=== PATIENT | female | born 1930 | race Caucasian/White ===

== ENCOUNTER 2017-01-22 22:06 | Emergency (ER) | payer MEDICARE ==
[~2017-01-22] VITALS: Ht 154.9 cm; Wt 77.1 kg
[~2017-01-22 22:06] MED LIST: ACET500T68 PO; ALPR0.254 PO; ASPI-630 PO; CEPH-264 PO; CHOL200027 PO; HYDR-2762 PO; HYDR-971 PO; LEVO75TA5 PO; LISI2.5T PO; MECL25TA3 PO; MELO7.5T29 PO; MULT-505 PO; NAPR220C4 PO; OXYB5TAB7 PO; POLY17PO29 PO; SIMV20TA3 PO
--- NOTE | 2017-01-22 22:35 | PHYS DOC ---
Past Medical History Past Medical History: Arthritis, GERD, High Cholesterol, Hypertension Additional Past Medical Histor: thyroid disease Past Surgical History: Knee Replacement Additional Past Surgical Histo: parital hysterectomy, RIGHT SHOULDER REPLACEMENT Alcohol Use: None Drug Use: None Adult General Chief Complaint Chief Complaint: LACERATION/AVULSION HPI HPI Patient is a 86 year old female who presents with eyebrow laceration. The patient states just prior to arrival but told her shoe became caught on the linoleum floor and she tripped and fell. She denies any dizziness or lightheadedness contributing to the fall. She did not lose consciousness. She denies any other injuries. She does not take blood thinners. Last tetanus was >5 years ago. She has a cane that she uses at times to assist with ambulation. She lives alone. Her PCP is Dr. Li. Review of Systems Review of Systems Constitutional: Denies fever or chills Eyes: Denies change in visual acuity HENT: Denies nasal congestion or sore throat Respiratory: Denies cough or shortness of breath Cardiovascular: Denies chest pain or edema GI: Denies abdominal pain, nausea, vomiting Musculoskeletal: Denies back pain or joint pain Integument: Reports facial laceration. Neurologic: Denies headache, focal weakness or sensory changes All other systems were reviewed and found to be within normal limits, except as documented in this note. Current Medications Current Medications Current Medications Medications (Trade) Dose Ordered Sig/Candi Start Time Stop Time Status Last Admin Dose Admin Lidocaine/ Epinephrine (Let Topical) 3 ml 1X ONCE 01/22/17 23:00 01/22/17 23:01 DC 01/22/17 22:36 3 ML Allergies Allergies Allergies Coded Allergies Type Severity Reaction Last Updated Verified prednisone Allergy Intermediate "makes me crazy" 01/15/16 Yes Physical Exam Physical Exam Constitutional: obese, no acute distress, non-toxic appearance. HENT: Normocephalic, atraumatic, bilateral external ears normal, oropharynx moist, nose normal. Eyes: PERRLA, EOMI, conjunctiva normal, no discharge. ecchymosis in periorbital region laterally & superior to the left eye. no orbital tenderness. 3 cm linear laceration to left eyebrow. Neck: supple, no stridor. no midline c-spine tenderness. Cardiovascular: RRR, no murmurs, no edema. Lungs & Thorax: LCTAB, no wheezing, no respiratory distress. Abdomen: soft, nontender, nondistended. Skin: Warm, dry, no erythema, no rash. Back: No tenderness. Extremities: No deformity Neurologic: Alert and oriented X 3, cranial nerves 2-12 grossly intact, symmetric strength/sensation to upper & lower extremities, no focal deficits noted. Psychologic: Affect normal, judgement normal, mood normal. Current Patient Data Vital Signs Vital Signs Date Time Temp Pulse Resp B/P (MAP) Pulse Ox O2 Delivery O2 Flow Rate FiO2 01/22/17 22:23 85 20 150/58 (88) 98 Room Air 01/22/17 22:16 98.0 98.0 EKG EKG [] Radiology/Procedures Radiology/Procedures PROCEDURE: CT HEAD AND CERVICAL SPINE [facility] Compliance Statement: One or more of the following individualized dose reduction techniques were utilized for this examination: 1. Automated exposure control 2. Adjustment of the mA and/or kV according to patient size 3. Use of iterative reconstruction technique CT head and cervical spine without contrast 01/22/2017 10:39 PM INDICATION: Fall, head injury COMPARISON: CT head March 28, 2012 TECHNIQUE: Multiple axial CT images of the head were obtained from skull base through the vertex without intravenous contrast. Multiple axial CT images of the cervical spine were obtained without intravenous contrast. Coronal and sagittal reformats are provided. FINDINGS: Head: Ventricles, sulci and basal cisterns are within normal limits. Low-attenuation in the periventricular white matter is compatible with chronic small vessel ischemic changes. There is no hydrocephalus. Lima-white matter differentiation is normal. There is no acute intracranial hemorrhage. There is no mass, mass effect or midline shift. Posterior fossa is normal in appearance. Visualized portions of the orbits are normal with exception of bilateral lens replacement. Paranasal sinuses are well aerated. Mastoid air cells are well aerated. Scalp and calvaria are normal. Cervical spine: There is minimal anterolisthesis of C4 on C5. There is minimal retrolisthesis of C5 on C6 and C6 on C7. There is disc height loss at C5-C6 and C6-C7 with marginal osteophytosis, endplate sclerosis and subcortical cystic changes. Skull base is intact. Craniocervical junction is normal in appearance. Atlantoaxial articulation is normal. Vertebral body heights are maintained without evidence for acute fracture. Moderate to advanced facet arthropathy with fusion of the facet joints on the left at C4-C5. Posterior disc osteophyte complex at C5-6 and C6-C7 result in up to moderate spinal canal stenosis. There is moderate to severe bilateral neuroforaminal stenosis at these levels. There is no prevertebral soft tissue swelling. Thyroid gland is normal in appearance. Visualized portions of the lung apices are normal without evidence for suspicious pulmonary nodule or infiltrate. IMPRESSION: 1. No acute intracranial hemorrhage. Mild chronic small vessel ischemic changes are suspected in the periventricular white matter. 2. No acute fracture of the cervical spine. There is mild degenerative spondylolisthesis, as detailed above. Moderate to advanced cervical spondylosis is noted. Electronically signed by: Brayan Min MD (01/22/2017 11:22 PM) [facility] [place] DICTATED and SIGNED BY: BRAYAN MIN MD DATE: 01/22/17 2316[] Course & Med Decision Making Course & Med Decision Making Pertinent Labs and Imaging studies reviewed. (See chart for details) The patient presents with facial laceration after mechanical fall. Tetanus is up -to-date. Wound irrigated by ED RN, LET applied. Laceration repaired by me using sutures. CT shows no evidence of intracranial or cervical spine injury. Patient with normal neurologic exam. She was comfortable with discharge home. Recommend rest, wound care, follow-up in 7 days for suture removal, come back for signs of wound infection, altered mental status, focal neurologic deficit, any otherwise worsening condition. Discharged home in stable and improved condition. [] Dragon Disclaimer Dragon Disclaimer This electronic medical record was generated, in whole or in part, using a voice recognition dictation system. Laceration Repair Lac Repair Indication: facial laceration Procedure: The patient was placed in the appropriate position and anesthesia around the laceration was achieved by topical application of LET. The area was then irrigated with a copious amount of normal saline. The laceration was repaired using 3 simple interrupted sutures with 5-0 ethilon. Total repaired wound length: 3 cm. The patient tolerated the procedure well. Complications: none. Departure Departure Impression: Primary Impression: Facial laceration Disposition: 01 HOME, SELF-CARE Condition: STABLE Referrals: NITISH LI Jr, MD (PCP) Patient Instructions: Facial Laceration, [id number] Additional Instructions: You were seen in the emergency department today for laceration on your face. It was repaired with sutures. Please keep clean and dry. Come back here in 7 days for suture removal. Come back sooner for fever, hot/red/swollen skin, pus draining from the wound, severe confusion, numbness or weakness in arms or legs , uncontrolled vomiting, any otherwise worsening condition. Problem Qualifiers Primary Impression: Facial laceration Encounter type: initial encounter Qualified Codes: S01.81XA - Laceration without foreign body of other part of head, initial encounter SAE PADILLA MD Jan 22, 2017 22:35
[2017-01-22] MEDS ORDERED: LIDOCAINE/EPI/TETRACAINE TOPICAL GEL 3 ML. TP ONE (23:00)
--- NOTE | 2017-01-22 23:26 | RAD ---
[facility] Compliance Statement: One or more of the following individualized dose reduction techniques were utilized for this examination: 1. Automated exposure control 2. Adjustment of the mA and/or kV according to patient size 3. Use of iterative reconstruction technique CT head and cervical spine without contrast 01/22/2017 10:39 PM INDICATION: Fall, head injury COMPARISON: CT head March 28, 2012 TECHNIQUE: Multiple axial CT images of the head were obtained from skull base through the vertex without intravenous contrast. Multiple axial CT images of the cervical spine were obtained without intravenous contrast. Coronal and sagittal reformats are provided. FINDINGS: Head: Ventricles, sulci and basal cisterns are within normal limits. Low-attenuation in the periventricular white matter is compatible with chronic small vessel ischemic changes. There is no hydrocephalus. Lima-white matter differentiation is normal. There is no acute intracranial hemorrhage. There is no mass, mass effect or midline shift. Posterior fossa is normal in appearance. Visualized portions of the orbits are normal with exception of bilateral lens replacement. Paranasal sinuses are well aerated. Mastoid air cells are well aerated. Scalp and calvaria are normal. Cervical spine: There is minimal anterolisthesis of C4 on C5. There is minimal retrolisthesis of C5 on C6 and C6 on C7. There is disc height loss at C5-C6 and C6-C7 with marginal osteophytosis, endplate sclerosis and subcortical cystic changes. Skull base is intact. Craniocervical junction is normal in appearance. Atlantoaxial articulation is normal. Vertebral body heights are maintained without evidence for acute fracture. Moderate to advanced facet arthropathy with fusion of the facet joints on the left at C4-C5. Posterior disc osteophyte complex at C5-6 and C6-C7 result in up to moderate spinal canal stenosis. There is moderate to severe bilateral neuroforaminal stenosis at these levels. There is no prevertebral soft tissue swelling. Thyroid gland is normal in appearance. Visualized portions of the lung apices are normal without evidence for suspicious pulmonary nodule or infiltrate. IMPRESSION: 1. No acute intracranial hemorrhage. Mild chronic small vessel ischemic changes are suspected in the periventricular white matter. 2. No acute fracture of the cervical spine. There is mild degenerative spondylolisthesis, as detailed above. Moderate to advanced cervical spondylosis is noted. Electronically signed by: Kaylynn Masters MD (01/22/2017 11:22 PM) [place] [id number]
[2017-01-23] VITALS: BP 158/70
== END 2017-01-23 | disposition home or self-care (01) ==
LOC: ER 22:06
DX: S01.112A Laceration without foreign body of left eyelid and periocular area, initial encounter (principal); E78.00 Pure hypercholesterolemia, unspecified; I10 Essential (primary) hypertension; K21.9 Gastro-esophageal reflux disease without esophagitis; Z88.8 Allergy status to other drugs, medicaments and biological substances; W01.0XXA Fall on same level from slipping, tripping and stumbling without subsequent striking against object, initial encounter; Y93.89 Activity, other specified; Y99.8 Other external cause status; Y92.89 Other specified places as the place of occurrence of the external cause
CPT/HCPCS: 12013; 70450; 72125; 99284-25

== ENCOUNTER 2017-06-17 14:57 | Emergency (ER) | payer MEDICARE ==
[2017-06-17 16:13] LABS: ADD MAN DIFF? NO
[2017-06-17 16:15] LABS: BASO % 1 % (0-3); EOS # 0.3 x10^3/uL (0.0-0.7); EOS % 5 % (0-3); HEMATOCRIT 35.7 % (36.0-47.0); LYMPH # 1.7 x10^3/uL (1.0-4.8); LYMPH % 31 % (24-48); MEAN CORPUSCULAR HEMOGLOBIN 32 pg (25-35); MEAN CORPUSCULAR HGB CONC 34 g/dL (31-37); MEAN CORPUSCULAR VOLUME 95 fL (79-100); MONO # 0.6 x10^3/uL (0.0-1.1); MONO % 11 % (0-9); NEUT # 2.8 x10^3uL (1.8-7.7); NEUT % 52 % (31-73); PLATELET COUNT 196 x10^3/uL (140-400); RED BLOOD COUNT 3.75 x10^6/uL (3.50-5.40); RED CELL DISTRIBUTION WIDTH 13.1 % (11.5-14.5); WHITE BLOOD COUNT 5.4 x10^3/uL (4.0-11.0)
[2017-06-17] MEDS: IV NORMAL SALINE 1000ML BAG 1,000 ML IV (16:18)
[2017-06-17 16:27] LABS: ANION GAP 12 (6-14); BLOOD UREA NITROGEN 39 mg/dL (7-20); CALCIUM 9.1 mg/dL (8.5-10.1); CARBON DIOXIDE 25 mmol/L (21-32); CHLORIDE 104 mmol/L (98-107); GFR 52.6; GLUCOSE 97 mg/dL (70-99); POTASSIUM 4.5 mmol/L (3.5-5.1); SODIUM 141 mmol/L (136-145)
[2017-06-17] MEDS: ONDANSETRON PF 4 MG/2 ML VIAL. IV (16:30)
[2017-06-17] MEDS ORDERED: CONTRAST GIVEN MC (16:30)
[2017-06-17 16:33] LABS: ALBUMIN 3.6 g/dL (3.4-5.0); ALK PHOS 74 U/L (46-116); ALT (SGPT) 23 U/L (14-59); AST (SGOT) 20 U/L (15-37); DIRECT BILIRUBIN 0.1 mg/dL (0.0-0.2); LIPASE 69 U/L (73-393); TOTAL BILIRUBIN 0.4 mg/dL (0.2-1.0); TOTAL PROTEIN 6.6 g/dL (6.4-8.2)
[2017-06-17 16:37] LABS: TROPONINI < 0.017 ng/mL (0.000-0.055)
[2017-06-17 16:41] LABS: CKMB MASS 1.5 ng/mL (0.0-3.6); CREATINE KINASE 53 U/L (26-192)
[2017-06-17 16:50] LABS: BILIRUBIN,URINE NEGATIVE (NEG); CLARITY,URINE CLEAR; COLOR,URINE YELLOW; GLUCOSE,URINE NEGATIVE (NEG); NITRITE,URINE NEGATIVE (NEG); PROTEIN,URINE NEGATIVE (NEG-TRACE); UROBILINOGEN,URINE 0.2 mg/dL (0.2 mg/dL)
[2017-06-17] MEDS: IOHEXOL 300 MG/ML 100ML VIAL. IV (16:54)
[2017-06-17 17:06] LABS: BACTERIA,URINE FEW /HPF (0-FEW); HYALINE CASTS, URINE FEW /HPF; RBC,URINE OCC /HPF (0-2); SQUAMOUS EPITHELIAL CELL,UR MOD /LPF
[2017-06-17] MEDS: 0.9 % SODIUM CHLORIDE 10 ML DISP.SYRIN. IV (18:06)
== END 2017-06-17 18:23 | disposition home or self-care (01) ==
LOC: ER 14:57
DX: K40.90 Unilateral inguinal hernia, without obstruction or gangrene, not specified as recurrent (principal); K80.20 Calculus of gallbladder without cholecystitis without obstruction; M19.90 Unspecified osteoarthritis, unspecified site; K21.9 Gastro-esophageal reflux disease without esophagitis; E78.00 Pure hypercholesterolemia, unspecified; I10 Essential (primary) hypertension; Z90.711 Acquired absence of uterus with remaining cervical stump; Z96.611 Presence of right artificial shoulder joint; Z96.659 Presence of unspecified artificial knee joint; Z88.8 Allergy status to other drugs, medicaments and biological substances
CPT/HCPCS: 36415; 74177; 80048; 80076; 81001; 82553; 83690; 84484; 85025; 87086; 93005; 96360; 99285-25; J7030; Q9967

== ENCOUNTER → 2017-08-17 | Outpatient (CLI) | payer MEDICARE | END | disposition home or self-care (01) | LOC: KCIC MRI 14:01 | DX: M48.07 Spinal stenosis, lumbosacral region (principal); M12.88 Other specific arthropathies, not elsewhere classified, other specified site; M51.45 Schmorl's nodes, thoracolumbar region | CPT/HCPCS: 72148 ==

== ENCOUNTER → 2017-09-08 | Outpatient (CLI) | payer MEDICARE ==
[~2017-09-08] MED LIST changes: -ACET500T68 PO; -ALPR0.254 PO; -ASPI-630 PO; +BUPIVACAINE MPF 0.25% 10 ML VIAL.; -CEPH-264 PO; -CHOL200027 PO; -HYDR-2762 PO; -HYDR-971 PO; -LEVO75TA5 PO; -LISI2.5T PO; -MECL25TA3 PO; -MELO7.5T29 PO; -MULT-505 PO; -NAPR220C4 PO; -OXYB5TAB7 PO; -POLY17PO29 PO; -SIMV20TA3 PO; +methylPREDNISolone ACETATE 40 MG/ML VIAL.
== END ==
LOC: PNCL 10:48
DX: M79.1 Myalgia (principal); E03.9 Hypothyroidism, unspecified; K21.9 Gastro-esophageal reflux disease without esophagitis; Z87.39 Personal history of other diseases of the musculoskeletal system and connective tissue; Z96.611 Presence of right artificial shoulder joint; Z96.652 Presence of left artificial knee joint; Z98.42 Cataract extraction status, left eye; Z98.41 Cataract extraction status, right eye; Z90.710 Acquired absence of both cervix and uterus; Z98.890 Other specified postprocedural states; Z88.8 Allergy status to other drugs, medicaments and biological substances
CPT/HCPCS: 20552; J1030; J3490

== ENCOUNTER → 2017-09-19 | Outpatient (CLI) | payer MEDICARE ==
[~2017-09-19] MED LIST changes: -BUPIVACAINE MPF 0.25% 10 ML VIAL.; +IOHEXOL 180 MG/ML 10 ML VIAL.; +LIDOCAINE 1% PF 2 ML VIAL.; +methylPREDNISolone ACETATE 80 MG/ML VIAL.
== END | disposition home or self-care (01) ==
LOC: PNCL 08:51
DX: M51.16 Intervertebral disc disorders with radiculopathy, lumbar region (principal); M48.061 Spinal stenosis, lumbar region without neurogenic claudication; M79.1 Myalgia; Z88.8 Allergy status to other drugs, medicaments and biological substances; Z98.42 Cataract extraction status, left eye; Z98.41 Cataract extraction status, right eye; Z96.1 Presence of intraocular lens; E78.00 Pure hypercholesterolemia, unspecified; I10 Essential (primary) hypertension; K21.9 Gastro-esophageal reflux disease without esophagitis; Z98.890 Other specified postprocedural states; Z90.710 Acquired absence of both cervix and uterus; M19.90 Unspecified osteoarthritis, unspecified site; Z96.652 Presence of left artificial knee joint; Z96.611 Presence of right artificial shoulder joint; E03.9 Hypothyroidism, unspecified; F41.9 Anxiety disorder, unspecified
CPT/HCPCS: 62323; J1030; J1040; Q9965

== ENCOUNTER 2017-10-05 12:17 | Emergency (ER) | payer OTHER, MEDICARE ==
[2017-10-05] MEDS: DIPHTH,PERTUSS(ACELL),TET TOX 0.5 ML DISP.SYRIN. VAX IM (13:31)
== END 2017-10-05 13:55 | disposition home or self-care (01) ==
LOC: ER 12:17
DX: S00.83XA Contusion of other part of head, initial encounter (principal); S00.531A Contusion of lip, initial encounter; S80.02XA Contusion of left knee, initial encounter; S80.01XA Contusion of right knee, initial encounter; E78.00 Pure hypercholesterolemia, unspecified; I10 Essential (primary) hypertension; K21.9 Gastro-esophageal reflux disease without esophagitis; Z88.5 Allergy status to narcotic agent; Z90.711 Acquired absence of uterus with remaining cervical stump; Z96.659 Presence of unspecified artificial knee joint; W01.0XXA Fall on same level from slipping, tripping and stumbling without subsequent striking against object, initial encounter; Y93.89 Activity, other specified; Y99.8 Other external cause status; Y92.89 Other specified places as the place of occurrence of the external cause
CPT/HCPCS: 70450; 70486; 73564; 90471; 90715; 99284-25

== ENCOUNTER → 2017-12-06 | Outpatient (CLI) | payer MEDICARE ==
[2017-10-05 13:47] VITALS: BP 184/82
[~2017-12-06] MED LIST changes: +ACET325T9 PO; +ACET500T68 PO; +ALPR0.254 PO; +ASPI-630 PO; +CEPH-264 PO; +CHOL200027 PO; +HYDR-2762 PO; +HYDR-971 PO; -IOHEXOL 180 MG/ML 10 ML VIAL.; +LEVO75TA5 PO; -LIDOCAINE 1% PF 2 ML VIAL.; +LISI2.5T PO; +MECL25TA3 PO; +MELO7.5T29 PO; +MULT-505 PO; +NAPR220C4 PO; +OMEP20CA9 PO; +OXYB5TAB7 PO; +POLY17PO29 PO; +SIMV20TA3 PO; -methylPREDNISolone ACETATE 40 MG/ML VIAL.; -methylPREDNISolone ACETATE 80 MG/ML VIAL.
--- NOTE | 2017-12-06 23:06 | PAIN ---
DATE OF SERVICE: 12/06/2017 PROGRESS NOTE FOR PAIN CLINIC DIAGNOSES: 1. Lumbar radiculopathy with lumbar degenerative disk disease and lumbar spinal stenosis. 2. Myofascial pain. HISTORY OF PRESENT ILLNESS: The patient is an 87-year-old female who returns for followup status post lumbar epidural steroid injection x 1 and previous trigger point injection in the right gastrocnemius. The patient reports that her low back is doing much better at least 40%-50% overall and was doing much better over the first few days, but the pain is still there in the low back and radiating into left greater than right lower extremity. The patient reports she is still increasing her activity with greater ease and comfort, somewhat better with walking distances, able to do household activities with greater ease. She does not awaken her from sleep at night. She rates the pain at 6 on a scale 10 at its worst, 4 on average and a 4 at its least and is a 4 today. The patient reports it is aching and dull with shooting and sometimes a stabbing pain more in the left leg in a posterolateral aspect of the thigh and anterior medial aspect of the left knee. The patient reports her right calf still has some significant pain in it and after the trigger point, was doing much better about 70% but now is beginning to return. The patient reports no new motor or sensory deficits and no new bowel or bladder incontinence or other complaints. PHYSICAL EXAMINATION: VITAL SIGNS: The patient's blood pressure 154/74, pulse 76, respirations are 18, temperature is 98.0 degrees Fahrenheit, weight is 178 pounds and height is 61 inches. GENERAL: The patient is awake, alert, oriented, appropriate and very pleasant demeanor. HEENT: Head shows normocephalic and atraumatic. Extraocular movements are intact and symmetrical. Oral cavity: Mucous membranes moist and pink. Dentition is intact. NECK: Shows anterior throat supple without palpable lymphadenopathy noted. Swallow reflex symmetrical. CHEST: Shows normal on inspection. Breath sounds clear to auscultation bilaterally. HEART: Shows S1 and S2 clear. No murmurs auscultated. ABDOMEN: Soft, nontender and nondistended. No palpable organomegaly is noted. No rebound or guarding demonstrated. BACK: Shows spine grossly in the midline. Slight exaggeration of the thoracic kyphosis and some mild flattening of lumbar lordotic curvature. Lumbar paraspinous muscle shows symmetrical on inspection, on palpation shows some mild tenderness but only diffusely without radiation. EXTREMITIES: The patient's lower extremities show deep tendon reflexes 2+ in the patellar and 1+ in tendo-calcaneus tendons are equal. Motor exam is strong with 5/5 dorsiflexion, extension, quadriceps and hamstring flexion and symmetrical. The patient's right gastrocnemius does show some significant tenderness in the superior lateral aspect of the gastrocnemius with very firm rope-like musculature in this region, which is very tender with palpation consistent with trigger point areas musculature. The rest of the gastrocnemius is supple with normal musculature without trigger points but is very tender on the right superior lateral aspect of the gastrocnemius without radiation. Peripheral pulses are 1+ posterior tibia. No peripheral edema is noted. Options were discussed with the patient. The patient's old chart was reviewed as well as her current medication regimen updated. Current review of systems updated today as well. We will hold on any further injections at this time as she is doing fairly well with each injection previously and would like to wait on any further injections at this time. We will have her return on as needed basis and the patient is questioning whether she could try some topical lidocaine on her left hip and low back. We will give her a prescription for lidocaine ointment 5% with instructions, side effects to be aware of discussed. She is apparently uses in the past with good results on her knees as well and she would like to try this once again. The patient will follow up in approximately 2 weeks or as necessary. AVELINO MEAD MD DR: BLANCA/ryne JOB#: [id number] / [id number]
== END | disposition home or self-care (01) ==
LOC: PNCL 13:52
PROVIDERS: ATTEND Anesthesiology
DX: M51.16 Intervertebral disc disorders with radiculopathy, lumbar region (principal); M48.061 Spinal stenosis, lumbar region without neurogenic claudication; M79.1 Myalgia; I10 Essential (primary) hypertension; E03.9 Hypothyroidism, unspecified; E78.00 Pure hypercholesterolemia, unspecified; E78.5 Hyperlipidemia, unspecified; Z90.710 Acquired absence of both cervix and uterus; Z96.653 Presence of artificial knee joint, bilateral; Z96.611 Presence of right artificial shoulder joint; Z96.612 Presence of left artificial shoulder joint; Z88.5 Allergy status to narcotic agent; Z88.8 Allergy status to other drugs, medicaments and biological substances
CPT/HCPCS: G0463

== ENCOUNTER → 2017-12-20 | Outpatient (CLI) | payer MEDICARE ==
[2017-10-05 13:47] VITALS: BP 184/82
[~2017-12-20] MED LIST changes: +HYDR-965 PO; +LEVO88TA4 PO
[2017-12-20 14:28] LABS: BASO % 1 % (0-3); EOS # 0.2 x10^3/uL (0.0-0.7); EOS % 4 % (0-3); HEMATOCRIT 33.1 % (36.0-47.0); HEMOGLOBIN 11.5 g/dL (12.0-15.5); LYMPH # 1.8 x10^3/uL (1.0-4.8); LYMPH % 28 % (24-48); MEAN CORPUSCULAR HEMOGLOBIN 34 pg (25-35); MEAN CORPUSCULAR HGB CONC 35 g/dL (31-37); MEAN CORPUSCULAR VOLUME 97 fL (79-100); MONO # 0.8 x10^3/uL (0.0-1.1); MONO % 13 % (0-9); NEUT # 3.5 x10^3uL (1.8-7.7); NEUT % 55 % (31-73); PLATELET COUNT 208 x10^3/uL (140-400); RED BLOOD COUNT 3.42 x10^6/uL (3.50-5.40); RED CELL DISTRIBUTION WIDTH 12.5 % (11.5-14.5); WHITE BLOOD COUNT 6.3 x10^3/uL (4.0-11.0)
[2017-12-20 14:46] LABS: CALCIUM 9.5 mg/dL (8.5-10.1); CREATININE 1.1 mg/dL (0.6-1.0); POTASSIUM 4.1 mmol/L (3.5-5.1)
== END | disposition home or self-care (01) ==
LOC: SURGPAT 13:33
PROVIDERS: ATTEND Surgery
DX: Z01.818 Encounter for other preprocedural examination (principal); K40.90 Unilateral inguinal hernia, without obstruction or gangrene, not specified as recurrent
CPT/HCPCS: 36415; 80048; 85025

== ENCOUNTER 2017-12-25 09:01 | Inpatient (IN) | payer MEDICARE ==
[2017-12-25] VITALS (9 sets, daily range): BP systolic 122–164; BP diastolic 38–77
[~2017-12-25] VITALS: Ht 157.5 cm; Wt 77.1 kg
[~2017-12-25 09:01] MED LIST changes: +BUPIVAC MPF-EPI 0.5%-1:200000 30 ML VIAL. ONE; +HYDROmorphone 2 MG/ML VIAL IV PRN; +IV RINGERS,LACTATED 1000ML 1,000 ML IV SCH; +LIDOCAINE 1% PF 2 ML VIAL. ID PRN; +MORPHINE SULFATE 2 MG/ML VIAL. IV PRN; +ONDANSETRON PF 4 MG/2 ML VIAL. IV PRN; +PROCHLORPERAZINE 10 MG/2 ML VIAL. IV PRN; +fentaNYL PF VIAL 100 MCG/2 ML VIAL IV PRN
[2017-12-25] MEDS ORDERED: PROPOFOL 20 ML IV ONE (09:23)
[2017-12-25] MEDS ORDERED: LIDOCAINE 2% PF Vial for OR 5 ML VIAL. ONE (09:23)
[2017-12-25] MEDS ORDERED: fentaNYL PF VIAL 100 MCG/2 ML VIAL ONE (09:23)
[2017-12-25] MEDS ORDERED: ONDANSETRON PF 4 MG/2 ML VIAL. ONE (09:26)
[2017-12-25] MEDS ORDERED: DEXAMETHASONE SOD PHOS 20 MG/5 ML VIAL. ONE (09:26)
[2017-12-25] MEDS ORDERED: NEOSTIGMINE METHYLSULFATE 5 MG/5 ML SYRINGE. ONE (09:31)
[2017-12-25] MEDS ORDERED: ePHEDrine PF IN SALINE 50 MG/5 ML DISP.SYRIN IV ONE (10:23)
[2017-12-25] MEDS ORDERED: SEVOFLURANE 61 TO 120 MINUTES. IH ONE (10:47)
[2017-12-25] MEDS ORDERED: PHENYLEPHRINE in 0.9% NACL PF 1 MG/10 ML SYRINGE. IV ONE (10:53)
[2017-12-25] MEDS ORDERED: MORPHINE SULFATE 2 MG/ML VIAL. IV PRN (11:15)
[2017-12-25] MEDS ORDERED: diphenhydrAMINE HCL 25 MG CAPSULE PO PRN (11:15)
[2017-12-25] MEDS ORDERED: 0.9 % SODIUM CHLORIDE 10 ML DISP.SYRIN. IV PRN (11:15)
[2017-12-25] MEDS ORDERED: oxyCODONE IR 5 MG TABLET PO PRN (11:15)
[2017-12-25] MEDS ORDERED: ONDANSETRON PF 4 MG/2 ML VIAL. IV PRN (11:15)
--- NOTE | 2017-12-25 11:18 | PDOC ---
BRIEF OPERATIVE NOTE Date: Dec 25, 2017 Pre-Op Diagnosis incarcerated left inguinal hernia Post-Op Diagnosis incarcerated left femoral hernia left inguinal lymphadenopathy Procedure Performed repair with mesh biopsy left inguinal lymph nodes Surgeon Olvin Anesthesia Type: General Blood Loss 10cc IV Fluid 500cc Urine Output 175cc Specimens Obtained left inguinal LNs Findings incarcerated femoral hernia, reduced spontaneously during dissection. some mildly prominent inguinal LNs Complications none DEONTE MATA MD Dec 25, 2017 11:18
[2017-12-25] MEDS ORDERED: ALPRAZolam 0.25 MG TABLET PO PRN (11:30)
[2017-12-25] MEDS ORDERED: INFLUENZA VAX SCREEN BY RX. MC PRN (14:00)
--- NOTE | 2017-12-25 14:25 | OP ---
DATE OF SURGERY: 12/25/2017 PREOPERATIVE DIAGNOSIS: Incarcerated left inguinal hernia. POSTOPERATIVE DIAGNOSES: Incarcerated left femoral hernia and left inguinal lymphadenopathy. PROCEDURE: 1. Repair of femoral hernia with mesh. 2. Biopsy of left inguinal lymph node. SURGEON: Deonte Mata MD ANESTHESIA: General LMA. ESTIMATED BLOOD LOSS: 10. INTRAVENOUS FLUID: 500. URINE OUTPUT: 175. INDICATIONS: The patient is an 87-year-old lady with left inguinal fullness and pain, brought for repair. OPERATIVE FINDINGS: Incarcerated femoral hernia was present; however, contents reduced during dissection spontaneously. DESCRIPTION OF PROCEDURE: The patient brought to the operating suite, given a general LMA and the left groin prepped and draped in usual sterile fashion. A 0.5% Marcaine with epinephrine was infiltrated along the incision line. Incision made, dissection carried down to the external oblique fascia. The fullness below the inguinal ligament was identified and carefully exposed. During mobilization of the hernia contents, they spontaneously reduced into the abdominal cavity. The hernia sac was then reduced and held in reduction with a small plug of Phasix mesh. This was tacked with 2-0 PDS, taking care to avoid injury to adjacent vessels. Area checked for hemostasis. Some prominent lymph nodes which had been encountered during the dissection were harvested with the LigaSure. Wound was then closed with interrupted inverted 3-0 Vicryl in the subcutaneous tissue, subcuticular 4-0 Monocryl with Steri-Strips for the skin. Sterile dressing applied. The patient awakened from her anesthetic and taken to the recovery room in satisfactory condition. DEONTE MATA MD DR: KENNETH/ryne JOB#: [id number] / [id number]
[2017-12-25] MEDS: POTASSIUM CL 20MEQ-0.45% NACL 1,000 ML IV SCH (14:41)
[2017-12-25] MEDS ORDERED: SIMVASTATIN 20 MG TABLET PO SCH (21:00)
[2017-12-25] MEDS ORDERED: ENOXAPARIN 40 MG/0.4 ML SYRINGE. SQ SCH (21:00)
[2017-12-25] MEDS: DOCUSATE SODIUM 100 MG CAPSULE. PO SCH (21:50)
[2017-12-25] MEDS: OXYBUTYNIN CHLORIDE 5 MG TABLET PO SCH (21:50)
[2017-12-25] MEDS ORDERED: ACETAMINOPHEN 325 MG TABLET. PO PRN (22:15)
[2017-12-26 03:00] VITALS: BP 114/63
[2017-12-26 07:00] VITALS: BP 137/59
[2017-12-26] MEDS ORDERED: LEVOTHYROXINE 88 MCG TABLET PO SCH (07:00)
[2017-12-26] MEDS ORDERED: PANTOPRAZOLE 40 MG TABLET.DR. PO SCH (07:30)
--- NOTE | 2017-12-26 08:18 | PDOC ---
SURGICAL PROGRESS NOTE Subjective tolerating diet pain managed ambulated to br voided Vital Signs Vital Signs Date Time Temp Pulse Resp B/P (MAP) Pulse Ox O2 Delivery O2 Flow Rate FiO2 12/26/17 07:00 98.6 70 18 137/59 (85) 98 Room Air 98.6 12/25/17 11:20 10 I&O Intake and Output 12/26/17 07:00 Intake Total 1110 ml Output Total 2535 ml Balance -1425 ml Intake Oral 60 ml IV Total 1050 ml Output Urine Total 2525 ml Estimated Blood Loss 10 ml # Voids 1 General: Alert, Oriented X3, Cooperative, No acute distress Abdomen: Soft, Other (groin dressing dry) Assessment/Plan s/p left femoral hernia repair, inguinal lymph node bx dc home FU 1 week CATINA GUEVARA WIRE WINDING MACHINE OPERATOR Dec 26, 2017 08:18
--- NOTE | 2017-12-26 08:20 | DISCH ---
DISCHARGE INSTRUCTIONS Condition on Discharge Condition on Discharge: Stable Activity After Discharge Activity Instructions for Disc: Activity as tolerated Other activity instructions: ok to shower, can leave incision uncovered Bathing Instructions: No Tub Bath until see Lifting Instructions after Dis: No heavy lifting, Do not lift >10 pounds Exercise Instruction after Dis: Progress as tolerated Driving Instructions after Dis: Do not drive Diet after Discharge Diet after Discharge: Regular Diet Texture: Regular Liquid Texture: Thin Liquid Swallowing Supervision: None needed Wound Incision Care Wound/Incision Care: Ice to area for comfort, May get incision wet, No wound care needed Contacting the DRHenry after DC Call your doctor for: Concerns you may have Follow-Up Follow up with: Dr Bah 1 week Treatment/Equipment after DC Adaptive Equipment Issued: None CATINA GUEVARA APRN Dec 26, 2017 08:20
[2017-12-26] MEDS ORDERED: HYDR-965 PO (08:22)
--- NOTE | 2017-12-26 08:25 | PDOC3 ---
Discharge Summary Visit Information Date of Admission: Dec 25, 2017 Date of Discharge: Dec 26, 2017 Admitting Diagnosis: left femoral hernia Final Diagnosis Incarcerated left femoral hernia and left inguinal lymphadenopathy. Brief Hospital Course Allergies Allergies Coded Allergies Type Severity Reaction Last Updated Verified prednisone Allergy Intermediate "makes me crazy" 12/25/17 Yes Vital Signs Vital Signs Date Time Temp Pulse Resp B/P (MAP) Pulse Ox O2 Delivery O2 Flow Rate FiO2 12/26/17 07:00 98.6 70 18 137/59 (85) 98 Room Air 98.6 12/25/17 11:20 10 Brief Hospital Course Ms. Mortensen is a 87 old female who presented with left femoral hernia. She underwent a left femoral hernia repair and left inguinal lymph node biopsy. Postoperatively tolerating diet, ambulating, and pain managed. Ready for discharge home Discharge Information Follow Up: Weeks (1) Disposition/Orders: D/C to Home Scheduled Aspirin (Aspirin) 81 Mg Tab.chew, 1 TAB PO DAILY, #90 Ref 3 (Reported) Entered as Reported by: CASANDRA NOBLE on 01/12/161312 Last Taken: Unknown Dose on 12/18/17 Last Action: Continued on 12/25/17 1120 by DEONTE MATA Cholecalciferol (Vitamin D3) (Vitamin D3) 2,000 Unit Tablet, 2,000 UNIT PO DAILY , (Reported) Entered as Reported by: CASANDRA NOBLE on 01/12/16 131 Last Action: Converted on 12/25/17 1120 by DEONTE MATA Levothyroxine Sodium (Levothyroxine Sodium) 88 Mcg Tablet, 1 TAB PO DAILY, #30 Ref 5 (Reported) Entered as Reported by: CHUY KULKARNI on 12/20/17 1359 Last Taken: Unknown Dose on 12/25/17 0730 Last Action: Continued on 12/25 1120 by DEONTE MATA Multivitamin (Once Daily) 1 Each Tablet, 1 EACH PO DAILY, (Reported) Entered as Reported by: CASANDRA NOBLE on 01/12/16 131 Last Action: Converted on 12/25/17 1120 by DEONTE MATA Omeprazole (Omeprazole) 20 Mg Capsule.dr, 1 CAP PO DAILY, #30 Ref 5 (Reported) Entered as Reported by: Madelyn Olivera on 06/29/17 1352 Last Action: Converted on 101119 by DEONTE MATA Oxybutynin Chloride (Oxybutynin Chloride) 5 Mg Tablet, 5 MG PO BID, (Reported) Entered as Reported by: CASANDRA NOBLE on 01/12/161312 Last Taken: Unknown Dose on 12/25/17 0730 Last Action: Continued on 12/25 by DEONTE MATA Simvastatin (Simvastatin) 20 Mg Tablet, 20 MG PO HS, (Reported) Entered as Reported by: MICHELLE HERNANDEZ on 04/02/132035 Last Action: Converted on 12/25/171119 by DEONTE MATA Scheduled PRN Alprazolam (Alprazolam) 0.25 Mg Tablet, 0.25 MG PO PRN Q6HRS PRN for ANXIETY / AGITATION, Ref 0 (Reported) Entered as Reported by: CASANDRA NOBLE on 01/12/161312 Last Action: Continued on 12/25/171119 by DEONTE MATA Hydrocodone/Apap 7.5-325 ([place] 7.5-325 Tablet) 1 Each Tablet, 1 TAB PO PRN Q6HRS PRN for PAIN, #20 Ref 0 Prescribed by: Catina Lynn on 12/26/17821 Naproxen Sodium (Aleve) 220 Mg Capsule, 440 MG PO BID PRN for PAIN, (Reported) Entered as Reported by: CASANDRA NOBLE on 01/12/161312 Last Action: HELD on 12/25/171119 by CATINA ESTRADA APRN Dec 26, 2017 08:25
[2017-12-26] MEDS: POTASSIUM CL 20MEQ-0.45% NACL 1,000 ML IV SCH (08:30)
[2017-12-26] MEDS: OXYBUTYNIN CHLORIDE 5 MG TABLET PO SCH (08:52)
[2017-12-26] MEDS: DOCUSATE SODIUM 100 MG CAPSULE. PO SCH (08:52)
[2017-12-26] MEDS ORDERED: CHOLECALCIFEROL (VITAMIN D3) 1,000 UNIT TABLET PO SCH (09:00)
[2017-12-26] MEDS ORDERED: ASPIRIN CHEWABLE 81 MG TABLET. PO SCH (09:00)
[2017-12-26] MEDS ORDERED: MULTIVITAMIN with MINERAL TABLET. PO SCH (09:00)
--- NOTE | 2017-12-26 18:07 | PATHOLOGY ---
[facility] Accession Number: [id number] . 01 Material submitted: . LEFT INGUINAL LYMPH NODES . 01 Clinician provided ICD-10: K40.30 . 01 Clinical history: . Incarcerated left inguinal hernia . 02 Diagnosis: Fibroadipose tissue and lymph nodes, left femoral hernia repair: - Reactive changes of lymph nodes with partial fatty replacement and myla fibrosis and focal dystrophic calcification. [facility]/12/26/2017 . 02 Comment: There is no evidence of malignancy. ([facility] 12/26/2017) . 02 Electronically signed: . Cj Hall MD, Pathologist NPI- [id number] . 01 Gross description: . The specimen is received in formalin, labeled "Leslie Mortensen, left inguinal lymph node", is a yellow lobulated soft tissue measuring 4.0 x 0 x 2.0 x 1.6 cm. Sectioning reveals three matted lymph nodes ranging from 0.7 cm up to 1.2 cm in greatest dimension. The specimen is entirely submitted in A1-A3. (A1-A2 = matted lymph nodes bisected and A3 = remaining soft tissue) ([facility]; 12/25/2017) [facility] . 02 Pathologist provided ICD-10: R59.0, K40.30 . 02 CPT . 456015 Specimen Comment: A courtesy copy of this report has been sent to Specimen Comment: [phone], . Specimen Comment: Report sent to / DR LI Performed at: 01 [facility] [address], [place], [place] [id number] MD Michael Martínez MD Phone: [phone] Performed at: 02 [facility] [address], [place] [id number] MD Cj Hall MD Phone: [phone]
== END 2017-12-26 10:15 | disposition home or self-care (01) | DRG 351 ==
LOC: SURG 09:01 → 4 NORTH 11:06
PROVIDERS: ADMIT Surgery; ATTEND Surgery
PROC: 07BJ0ZX Excision of Left Inguinal Lymphatic, Open Approach, Diagnostic (ICD-10-PCS; 2017-12-25)
PROC: 0YU Anatomical Regions, Lower Extremities, Supplement (ICD-10-PCS; principal; 2017-12-25 10:15)
DX: K41.30 Unilateral femoral hernia, with obstruction, without gangrene, not specified as recurrent (principal); K40.30 Unilateral inguinal hernia, with obstruction, without gangrene, not specified as recurrent; R59.0 Localized enlarged lymph nodes; E78.00 Pure hypercholesterolemia, unspecified; E03.9 Hypothyroidism, unspecified; M19.90 Unspecified osteoarthritis, unspecified site; Z96.652 Presence of left artificial knee joint; Z90.710 Acquired absence of both cervix and uterus; Z80.1 Family history of malignant neoplasm of trachea, bronchus and lung; Z88.8 Allergy status to other drugs, medicaments and biological substances
CPT/HCPCS: 88307; 90471; 90756; A7015; C1781; J0690; J1100; J2001; J2370; J2405; J2704; J2710; J3010; J3490; Q2035

== ENCOUNTER 2018-01-06 10:01 | Emergency (ER) | payer MEDICARE ==
[~2018-01-06] VITALS: Ht 154.9 cm; Wt 77.1 kg
[~2018-01-06 10:01] MED LIST changes: -BUPIVAC MPF-EPI 0.5%-1:200000 30 ML VIAL. ONE; -HYDROmorphone 2 MG/ML VIAL IV PRN; -IV RINGERS,LACTATED 1000ML 1,000 ML IV SCH; -LIDOCAINE 1% PF 2 ML VIAL. ID PRN; -MORPHINE SULFATE 2 MG/ML VIAL. IV PRN; -ONDANSETRON PF 4 MG/2 ML VIAL. IV PRN; -PROCHLORPERAZINE 10 MG/2 ML VIAL. IV PRN; -fentaNYL PF VIAL 100 MCG/2 ML VIAL IV PRN
--- NOTE | 2018-01-06 10:51 | PHYS DOC ---
Past Medical History Past Medical History: Arthritis, GERD, High Cholesterol, Hypertension, Other Additional Past Medical Histor: thyroid disease Past Surgical History: Knee Replacement, Other Additional Past Surgical Histo: parital hysterectomy,R SHOULDER REPLACEMENT, MULTIPLE HERNIA Alcohol Use: None Drug Use: None Adult General Chief Complaint Chief Complaint: GI PROBLEM HPI HPI Patient is a 87 year old female who presents with hernia. The patient had surgery on the 15 of this month for repair of a incarcerated left femoral hernia. Patient had been doing well postoperatively until today. She was doing some leg exercises for balance and leg strengthening when she felt a pop in the area of the left lower abdomen. She had onset of some burning type pain and bulging at the incision site. Symptoms began this morning. She has had no fever or chills. She denies dehiscence of the wound. No nausea vomiting. She has been having bowel movements. Surgery was performed by Dr. Bah. Review of Systems Review of Systems Constitutional: Denies fever Eyes: Denies change in visual acuity HENT: Denies nasal congestion Respiratory: Denies cough or shortness of breath Cardiovascular: No additional information not addressed in HPI GI: Denies abdominal pain, nausea, vomiting : Denies dysuria or hematuria Integument: Denies rash or skin lesions Neurologic: Denies headache Endocrine: Denies polyuria All other systems were reviewed and found to be within normal limits, except as documented in this note. Current Medications Current Medications Current Medications Medications (Trade) Dose Ordered Sig/Candi Start Time Stop Time Status Last Admin Dose Admin Info (CONTRAST GIVEN -- Rx MONITORING) 1 each PRN DAILY PRN 01/06/18 11:00 01/08/18 10:59 Iohexol (Omnipaque 300 Mg/ml) 60 ml 1X ONCE 01/06/18 11:00 01/06/18 11:01 DC 01/06/18 11:18 60 ML Allergies Allergies Allergies Coded Allergies Type Severity Reaction Last Updated Verified prednisone Allergy Intermediate "makes me crazy" 12/25/17 Yes Physical Exam Physical Exam Constitutional: Well developed, well nourished, no acute distress HENT: Normocephalic, atraumatic, bilateral external ears normal, oropharynx moist Eyes: PERRLA, EOMI, conjunctiva normal Neck: Normal range of motion, no tenderness Cardiovascular:Heart rate regular rhythm, no murmur Lungs & Thorax: Bilateral breath sounds clear to auscultation Abdomen: Bowel sounds normal, soft, no tenderness, well-healing incision over the left lower quadrant with no local erythema, fever, dehiscence, fluctuance. There is, however, swelling at the incision site concerning for herniation. Skin: Warm, dry, no erythema, no rash Extremities: No edema Neurologic: Alert and oriented X 3 Psychologic: Affect normal Current Patient Data Vital Signs Vital Signs Date Time Temp Pulse Resp B/P (MAP) Pulse Ox O2 Delivery O2 Flow Rate FiO2 01/06/18 10:17 98.2 73 20 176/98 (124) 96 Room Air 98.2 Lab Values Laboratory Tests Test 01/06/18 10:35 White Blood Count 4.8 x10^3/uL (4.0-11.0) Red Blood Count 3.57 x10^6/uL (3.50-5.40) Hemoglobin 11.8 g/dL (12.0-15.5) L Hematocrit 34.4 % (36.0-47.0) L Mean Corpuscular Volume 96 fL (79-100) Mean Corpuscular Hemoglobin 33 pg (25-35) Mean Corpuscular Hemoglobin Concent 34 g/dL (31-37) Red Cell Distribution Width 12.3 % (11.5-14.5) Platelet Count 256 x10^3/uL (140-400) Neutrophils (%) (Auto) 71 % (31-73) Lymphocytes (%) (Auto) 18 % (24-48) L Monocytes (%) (Auto) 9 % (0-9) Eosinophils (%) (Auto) 1 % (0-3) Basophils (%) (Auto) 1 % (0-3) Neutrophils # (Auto) 3.4 x10^3uL (1.8-7.7) Lymphocytes # (Auto) 0.9 x10^3/uL (1.0-4.8) L Monocytes # (Auto) 0.4 x10^3/uL (0.0-1.1) Eosinophils # (Auto) 0.0 x10^3/uL (0.0-0.7) Basophils # (Auto) 0.0 x10^3/uL (0.0-0.2) Sodium Level 143 mmol/L (136-145) Potassium Level 4.0 mmol/L (3.5-5.1) Chloride Level 106 mmol/L (98-107) Carbon Dioxide Level 30 mmol/L (21-32) Anion Gap 7 (6-14) Blood Urea Nitrogen 21 mg/dL (7-20) H Creatinine 1.1 mg/dL (0.6-1.0) H Estimated GFR (Cockcroft-Gault) 47.0 Glucose Level 103 mg/dL (70-99) H Lactic Acid Level 0.9 mmol/L (0.4-2.0) Calcium Level 8.9 mg/dL (8.5-10.1) Laboratory Tests 01/06/18 10:35 Laboratory Tests 01/06/18 10:35 EKG EKG [] Radiology/Procedures Radiology/Procedures Findings: Axial images of the abdomen and pelvis were obtained following 60 cc Omnipaque 300 IV. Sagittal and coronal reformatted images were provided. Calcified granulomas involve the right lung base. Calcification about the mitral annulus is noted. Small hiatal hernia is present. Spleen, pancreas, and adrenal glands are normal. Pancreas is normal. Multiple small calculi are present at the dependent aspect of the gallbladder. No biliary dilatation or findings of acute inflammation. Very small umbilical hernia containing omental fat is present. Moderate to large quantity of stool is present in the colon. Mild bilateral renal atrophy is present. Atrophy is greater involving the left kidney compared to the right. Left inguinal region fluid collection is present and bilobed. It measures 8.7 cm transverse by 7.9 cm anteroposterior by 11.1 cm longitudinal. There is no inguinal hernia. There is no bowel obstruction. Appendix is normal. Urinary bladder is unremarkable. Facet joint degenerative changes of the lumbar spine are advanced. Exaggerated lordosis of the lumbar spine is present. Impression: Large postoperative seroma superficially along the anterior abdominal wall at the inguinal level. No inguinal hernia. No incarcerated bowel or bowel obstruction. Cholelithiasis. Course & Med Decision Making Course & Med Decision Making Pertinent Labs and Imaging studies reviewed. (See chart for details) Is evaluated in the emergency department for postoperative complication from hernia surgery. She is found to have a bulging and likely hernia at the incision site although the incision itself is well-appearing. Attempts are made to reduce the hernia. The swelling is soft over the lateral aspect and easily compressible but towards the medial aspect of the incision, the swelling is more firm and tender and cannot be reduced. CT scan is ordered. Labs including lactate. Patient is nontoxic and in no acute distress 12:30: CT scan is returned. Documented above. Patient does not have recurrence of hernia as previously thought. She has a simple seroma formation at the incision site. The incision again is well-appearing and there is no leakage of fluid or blood or purulence present. The patient is nontoxic. Her white count is normal. Her lactate is not elevated. I spoke to the on-call surgeon, Dr. Long about this patient. Plan will be for discharge home. The patient has a follow-up appointment with her primary surgeon 3 days from now. She is advised to come back to the ER for any fever or worsening pain. She is also advised to avoid any strenuous activity. . Dragon Disclaimer Dragon Disclaimer This electronic medical record was generated, in whole or in part, using a voice recognition dictation system. Departure Departure Referrals: NITISH LI Jr, MD (PCP) AVELINO HERNANDEZ DO Jan 06, 2018 10:51
[2018-01-06] MEDS ORDERED: CONTRAST GIVEN. MC PRN (11:00)
[2018-01-06] MEDS ORDERED: IOHEXOL 300 MG/ML 100ML VIAL. IV ONE (11:00)
[2018-01-06 11:06] LABS: BASO % 1 % (0-3); EOS % 1 % (0-3); HEMATOCRIT 34.4 % (36.0-47.0); HEMOGLOBIN 11.8 g/dL (12.0-15.5); LYMPH # 0.9 x10^3/uL (1.0-4.8); LYMPH % 18 % (24-48); MEAN CORPUSCULAR HEMOGLOBIN 33 pg (25-35); MEAN CORPUSCULAR HGB CONC 34 g/dL (31-37); MEAN CORPUSCULAR VOLUME 96 fL (79-100); MONO # 0.4 x10^3/uL (0.0-1.1); MONO % 9 % (0-9); NEUT # 3.4 x10^3uL (1.8-7.7); NEUT % 71 % (31-73); PLATELET COUNT 256 x10^3/uL (140-400); RED BLOOD COUNT 3.57 x10^6/uL (3.50-5.40); RED CELL DISTRIBUTION WIDTH 12.3 % (11.5-14.5); WHITE BLOOD COUNT 4.8 x10^3/uL (4.0-11.0)
[2018-01-06 11:15] LABS: CALCIUM 8.9 mg/dL (8.5-10.1); CREATININE 1.1 mg/dL (0.6-1.0)
--- NOTE | 2018-01-06 11:50 | RAD ---
Examination: CT ABD PELV W/ IV CONTRST ONLY History: LEFT INGUINAL HERNIA PAIN, S/P RECENT LEFT INGUINAL HERNIA REPAIR [id number]
OMNI 300 60ML, REDUCED DOSE
PRIOR SENT Comparison/Correlation: CT abdomen and pelvis with IV contrast 06/17/2017 Findings: Axial images of the abdomen and pelvis were obtained following 60 cc Omnipaque 300 IV. Sagittal and coronal reformatted images were provided. Calcified granulomas involve the right lung base. Calcification about the mitral annulus is noted. Small hiatal hernia is present. Spleen, pancreas, and adrenal glands are normal. Pancreas is normal. Multiple small calculi are present at the dependent aspect of the gallbladder. No biliary dilatation or findings of acute inflammation. Very small umbilical hernia containing omental fat is present. Moderate to large quantity of stool is present in the colon. Mild bilateral renal atrophy is present. Atrophy is greater involving the left kidney compared to the right. Left inguinal region fluid collection is present and bilobed. It measures 8.7 cm transverse by 7.9 cm anteroposterior by 11.1 cm longitudinal. There is no inguinal hernia. There is no bowel obstruction. Appendix is normal. Urinary bladder is unremarkable. Facet joint degenerative changes of the lumbar spine are advanced. Exaggerated lordosis of the lumbar spine is present. Impression: Large postoperative seroma superficially along the anterior abdominal wall at the inguinal level. No inguinal hernia. No incarcerated bowel or bowel obstruction. Cholelithiasis. Electronically signed by: Eliezer Diaz MD (01/06/2018 11:47 AM) [facility]
[2018-01-06 12:43] VITALS: BP 183/77
== END 2018-01-06 13:04 | disposition home or self-care (01) ==
LOC: ER 10:01
DX: K91.872 Postprocedural seroma of a digestive system organ or structure following a digestive system procedure (principal); K80.20 Calculus of gallbladder without cholecystitis without obstruction; E78.00 Pure hypercholesterolemia, unspecified; I10 Essential (primary) hypertension; K21.9 Gastro-esophageal reflux disease without esophagitis; Z90.711 Acquired absence of uterus with remaining cervical stump; Z88.5 Allergy status to narcotic agent; Y83.8 Other surgical procedures as the cause of abnormal reaction of the patient, or of later complication, without mention of misadventure at the time of the procedure; Y92.89 Other specified places as the place of occurrence of the external cause
CPT/HCPCS: 36415; 74177; 80048; 83605; 85025; 99285; Q9967

== ENCOUNTER → 2018-01-12 | Outpatient (CLI) | payer MEDICARE ==
[~2018-01-12] VITALS: Ht 154.9 cm; Wt 77.1 kg
[~2018-01-12] MED LIST changes: +LIDOCAINE WITH 8.4% SOD BICARB 3 ML DISP.SYRIN. INJ ONE; +LIDOCAINE WITH 8.4% SOD BICARB 3 ML DISP.SYRIN. ONE
[2018-01-12 10:34] VITALS: BP 146/66
[2018-01-12 10:38] LABS: BASO % 0 % (0-3); EOS # 0.1 x10^3/uL (0.0-0.7); EOS % 2 % (0-3); HEMOGLOBIN 12.2 g/dL (12.0-15.5); LYMPH # 1.4 x10^3/uL (1.0-4.8); LYMPH % 24 % (24-48); MEAN CORPUSCULAR HEMOGLOBIN 33 pg (25-35); MEAN CORPUSCULAR HGB CONC 34 g/dL (31-37); MEAN CORPUSCULAR VOLUME 96 fL (79-100); MONO # 0.7 x10^3/uL (0.0-1.1); MONO % 11 % (0-9); NEUT # 3.8 x10^3uL (1.8-7.7); NEUT % 63 % (31-73); PLATELET COUNT 232 x10^3/uL (140-400); RED BLOOD COUNT 3.75 x10^6/uL (3.50-5.40); RED CELL DISTRIBUTION WIDTH 12.6 % (11.5-14.5); WHITE BLOOD COUNT 6.1 x10^3/uL (4.0-11.0)
[2018-01-12 10:49] LABS: PROTHROMBIN TIME PATIENT 13.4 SEC (11.7-14.0)
[2018-01-12 11:43] LABS: CALCIUM 9.3 mg/dL (8.5-10.1); CREATININE 1.1 mg/dL (0.6-1.0); POTASSIUM 4.3 mmol/L (3.5-5.1)
[2018-01-12 12:03] VITALS: BP 166/74
--- NOTE | 2018-01-12 12:47 | RAD ---
Ultrasound-guided aspiration, left groin seroma 01/12/2018 Indication: Left groin seroma. Recent inguinal hernia repair Discussion: The risks and benefits of the procedure were discussed the patient. Informed consent was obtained. A timeout procedure was performed. The left groin was prepped and draped using maximum sterile barrier technique. 1% lidocaine was administered for local anesthesia. Ultrasound evaluation demonstrated a relatively simple fluid collection in subcutaneous tissues of the left groin. The collection was accessed with a 5 Guamanian sheath needle. 200 cc of serous fluid was aspirated. Samples were sent for Gram stain and culture. The sheath was removed and manual pressure held. A pressure dressing was applied. No immediate complications were identified. Reference ultrasound images were saved to the medical record. Impression: Ultrasound-guided aspiration, left groin seroma.
== END | disposition home or self-care (01) ==
LOC: INTRAD 10:08
PROVIDERS: ATTEND Surgery
DX: L76.34 Postprocedural seroma of skin and subcutaneous tissue following other procedure (principal); Y83.8 Other surgical procedures as the cause of abnormal reaction of the patient, or of later complication, without mention of misadventure at the time of the procedure; Z79.01 Long term (current) use of anticoagulants; Z88.8 Allergy status to other drugs, medicaments and biological substances; Z98.890 Other specified postprocedural states; Z79.899 Other long term (current) drug therapy; Z79.82 Long term (current) use of aspirin
CPT/HCPCS: 10160; 36415; 76942; 80048; 85025; 85610; 87071; 87075; C1892; 10022

== ENCOUNTER → 2019-09-26 | Outpatient (CLI) | payer MEDICARE ==
[2018-01-12 12:03] VITALS: BP 166/74
[~2019-09-26] MED LIST changes: -HYDR-2762 PO; +HYDR-2765 PO; +HYDR-3164 PO; +HYDR-3165 PO; -HYDR-965 PO; -HYDR-971 PO; -LIDOCAINE WITH 8.4% SOD BICARB 3 ML DISP.SYRIN. INJ ONE; -LIDOCAINE WITH 8.4% SOD BICARB 3 ML DISP.SYRIN. ONE; +MECL-75 PO; -MECL25TA3 PO; +OMEP20CA16 PO; -OMEP20CA9 PO; +OXYB5TAB10 PO; -OXYB5TAB7 PO; +SIMV20TA18 PO; -SIMV20TA3 PO
== END | disposition home or self-care (01) ==
LOC: LAB 14:02
PROVIDERS: ATTEND Internal Medicine Gastroenterology
DX: Z01.818 Encounter for other preprocedural examination (principal); Z11.59 Encounter for screening for other viral diseases; K92.2 Gastrointestinal hemorrhage, unspecified
CPT/HCPCS: U0003-CS

== ENCOUNTER → 2019-10-02 | Day surgery (SDC) | payer MEDICARE ==
[~2019-10-02] MED LIST changes: +GLYCOPYRROLATE 1 MG/5 ML SYRINGE. ONE; +IV RINGERS,LACTATED 1000ML 1,000 ML IV SCH; +LIDOCAINE 2% PF 5 ML VIAL. ONE; +PROPOFOL 10 MG/ML (20ML) VIAL. IV ONE; +SERT25TA PO
[2019-10-02 10:10] VITALS: BP 145/65
--- NOTE | 2019-10-04 15:08 | PATHOLOGY ---
[facility] Accession Number: [id number] . 01 Material submitted: . rectosigmoid junction - RECTAL SIGMOID JUNCTION MASS . 01 Clinical history: . Anemia, GI bleeding . 02 Diagnosis: Colorectal biopsies, rectosigmoid junction mass: - Tubulovillous adenoma. (JPM:olga; 10/03/2019) S 10/03/2019 0912 Local . 02 Comment: Sections of the rectosigmoid junction mass biopsy reveal segments of tubulovillous adenoma. There is no evidence of malignancy within this material. If there is a strong clinical suspicion of malignancy, additional biopsies may be helpful. Correlate clinically. (JPM:olga; 10/03/2019) . 02 Electronically signed: . Cj Hall MD, Pathologist NPI- [id number] . 01 Gross description: . The specimen is received in formalin, labeled "Leslie Mortensen, rectal sigmoid junction mass". Received are six segments of pale fry soft tissue ranging in size from 0.2 to 0.5 cm in maximum dimensions. The specimen is submitted entirely in cassette A1. (CAA; 10/02/2019) QA/QA 10/02/2019 1710 Local . 02 Pathologist provided ICD-10: D12.8 . 02 CPT . 118240 Specimen Comment: A courtesy copy of this report has been sent to [phone] Specimen Comment: [id number] Specimen Comment: Report sent to / DR SPENCER Performed at: 01 [facility] [address], [place], [place] [id number] MD Michael Martínez MD Phone: [phone] Performed at: 02 [facility] [address] [place], [place] [id number] MD Cj Hall MD Phone: [phone]
== END ==
LOC: ENDOS 08:19
PROVIDERS: ATTEND Internal Medicine Gastroenterology
DX: K92.2 Gastrointestinal hemorrhage, unspecified (principal); D12.8 Benign neoplasm of rectum; K64.0 First degree hemorrhoids; Z79.899 Other long term (current) drug therapy; Z98.890 Other specified postprocedural states
CPT/HCPCS: 43235; 45380; 45381; 88305; J2704; J3490

== ENCOUNTER → 2019-10-11 | Outpatient (CLI) | payer MEDICARE ==
[2019-10-02 10:10] VITALS: BP 145/65
[~2019-10-11] MED LIST changes: +CONTRAST GIVEN. MC PRN; -GLYCOPYRROLATE 1 MG/5 ML SYRINGE. ONE; +IOHEXOL 240 MG/ML 50ML VIAL. PO ONE; +IOHEXOL 300 MG/ML 100ML VIAL. IV ONE; -IV RINGERS,LACTATED 1000ML 1,000 ML IV SCH; -LIDOCAINE 2% PF 5 ML VIAL. ONE; -PROPOFOL 10 MG/ML (20ML) VIAL. IV ONE
[2019-10-11 08:59] LABS: CREATININE 1.1 mg/dL (0.6-1.0); GFR 46.9
--- NOTE | 2019-10-11 15:55 | RAD ---
EXAM: CT Abdomen and Pelvis with IV contrast INDICATION: Reason: RECTOSIGMOID MASS/ IRON DEFICIENCY / Spl. Instructions: / History: TECHNIQUE: Multi-detector row CT images were acquired from the lung bases through the abdomen and pelvis with the use of IV contrast. Sagittal and coronal images were acquired from the transaxial data. All CT scans performed at this facility utilize dose optimization techniques as appropriate to the exam, including the following: Automated exposure control and adjustment of the mA and/or KV according to patient size (this includes techniques or standardized protocols for targeted exams where dose is indication/reason for exam). IV CONTRAST: Administered ORAL CONTRAST: Administered COMPARISON: None FINDINGS: LOWER CHEST: Calcified right hilar lymph nodes and calcified granulomas in the right lower lobe. No pleural effusion. LIVER: Unremarkable BILIARY SYSTEM: Gallbladder contains layering dense debris, compatible with stones or sludge.. Bile ducts are not dilated. PANCREAS: Unremarkable SPLEEN: Upper normal at 11 cm length. ADRENALS: Unremarkable KIDNEYS & URETERS: Unremarkable BLADDER: Unremarkable REPRODUCTIVE ORGANS: Hysterectomy. No adnexal mass. GASTROINTESTINAL: Soft tissue fullness in the low rectum is present, correlating with the patient's known rectosigmoid mass. There is no evidence of bowel obstruction. Moderate stool throughout the large bowel is present. The small bowel is unremarkable. The appendix is normal. Stomach also unremarkable. MESENTERY/PERITONEUM/RETROPERITONEUM: Unremarkable VASCULAR: Scattered calcifications in the abdominal aorta and its major branch vessels. LYMPH NODES: No adenopathy OSSEOUS & SOFT TISSUES: The previously evident low density soft tissue mass in the left groin is now absent. Bones show multilevel degenerative spondylosis. No acute fracture or aggressive osseous lesions noted. IMPRESSION: Masslike fullness in the low rectum with no additional CT findings suspicious for advanced local regional or distant metastatic disease. If indicated, MRI could be considered in further evaluation. Electronically signed by: Joyce Stone MD (10/11/2019 3:52 PM) [id number]
== END ==
LOC: CT 13:39
PROVIDERS: ATTEND Internal Medicine Gastroenterology
DX: K80.20 Calculus of gallbladder without cholecystitis without obstruction (principal); R19.09 Other intra-abdominal and pelvic swelling, mass and lump; D50.9 Iron deficiency anemia, unspecified; I70.0 Atherosclerosis of aorta; M47.9 Spondylosis, unspecified; Z90.710 Acquired absence of both cervix and uterus
CPT/HCPCS: 36415; 74177; 82565; 84520; Q9966; Q9967

== ENCOUNTER → 2019-11-05 | Outpatient (CLI) | payer MEDICARE ==
[2019-10-02 10:10] VITALS: BP 145/65
[~2019-11-05] MED LIST changes: -CONTRAST GIVEN. MC PRN; -IOHEXOL 240 MG/ML 50ML VIAL. PO ONE; -IOHEXOL 300 MG/ML 100ML VIAL. IV ONE
--- NOTE | 2019-11-07 08:59 | RAD ---
STUDY: MRI pelvis without contrast INDICATION: Rectal tumor COMPARISON: CT abdomen and pelvis with oral and IV contrast of 10/11/2019 TECHNIQUE: Multiplanar MR imaging of the pelvis performed without the intravenous administration of IV contrast. This was done to help maximize scan time for the most crucial anatomic sequences that due to patient condition may require repeat imaging. FINDING: Some motion artifact degrades detail. Tumor location and morphology: Location from Anal Verge: Mid Inferior border of the tumor measures 6 cm from the anal verge. Distance of inferior border of tumor to anorectal junction: 3 cm Relationship to anterior peritoneal reflection: Straddles Craniocaudal length: 4 cm Morphology: Semi-circumferential Mucinous: Yes T-category: T1-2 Structures with possible invasion (in T4b stage): Genitourinary: No genitourinary Vessels: No major vessel involvement Nerves: No lubrosacral nerve root involvement Pelvic muscles (excluding the floor): None Pelvic floor: No pelvic floor muscle involvement Bones: No bone invovlement For low rectal tumors: Invasion of sphincter complex : Not applicable Extent of sphincteric invasion: Not Applicable Length of anal canal : 3 cm Extramural Vascular Invasion (EMVI) : No Circumferential resection margin (CRM), for T3 lesions only: Tumor involves peritonealized portion of rectum : No Shortest distance of tumor to mesorectal fascia (or anticipated circumerential resection margin): 6 mm Separate tumor deposit, suspicious lymph node, or EMVI threatening (<= 2mm) or invading (<=1mm) the mesorectal fascia None Suspicious mesorectal lymph nodes and/or tumor deposits: No Number of suspicious lymph nodes: 0 Distance from tumor deposit to mesorectal fascia : Not applicable Extramesorectal lymph nodes None Additional comments: There is extensive muscular atrophy including the left iliopsoas muscle and the bilateral gluteus medius and minimus muscles. The uterus is surgically absent and there is irregular T2 hypointense tissue near the anal verge that could reflect postoperative scarring. IMPRESSION: 1. Stage T2 N0 2. CRM : Clear 3. Suspicious node and/or EMVI near CRM: No 4. Sphincter involvement: Absent 5. Suspicious extramesorectal nodesNo 6. There is scar tissue in the perineum that could reflect postoperative changes from previous hysterectomy and/or episiotomy. This probably explains the findings on CT initially reported to be suspicious for tumor but which on MRI more closely resembles scar tissue.. Discussed with Dr. Davis Andrews by telephone at 8:55 AM on November 07, 2019. Electronically signed by: Joyce Stone MD (11/07/2019 8:56 AM) [id number]
== END ==
LOC: MRI 11:49
PROVIDERS: ATTEND Surgery
DX: N90.89 Other specified noninflammatory disorders of vulva and perineum (principal); D49.0 Neoplasm of unspecified behavior of digestive system; M62.58 Muscle wasting and atrophy, not elsewhere classified, other site
CPT/HCPCS: 72195

== ENCOUNTER → 2019-11-22 | Outpatient (CLI) | payer MEDICARE ==
[2019-10-02 10:10] VITALS: BP 145/65
--- NOTE | 2019-11-22 14:00 | NUR ---
ostomy care Pre-op teaching completed. patient given the pre-op education materials. patients daughter present at this time. ostomy care team will see patient after surgery for further teaching.
--- NOTE | 2019-11-22 14:15 | NUR ---
ASHLYN DIAL MARKER NURSE PROVIDED OSTOMY EDUCATION TO PATIENT AND HER DAUGHTER.
[2019-11-22 15:03] LABS: BASO % 1 % (0-3); EOS # 0.2 x10^3/uL (0.0-0.7); EOS % 3 % (0-3); HEMATOCRIT 35.3 % (36.0-47.0); HEMOGLOBIN 11.8 g/dL (12.0-15.5); LYMPH # 1.5 x10^3/uL (1.0-4.8); LYMPH % 28 % (24-48); MEAN CORPUSCULAR HEMOGLOBIN 32 pg (25-35); MEAN CORPUSCULAR HGB CONC 34 g/dL (31-37); MEAN CORPUSCULAR VOLUME 96 fL (79-100); MONO # 0.7 x10^3/uL (0.0-1.1); MONO % 13 % (0-9); NEUT # 3.1 x10^3/uL (1.8-7.7); NEUT % 56 % (31-73); PLATELET COUNT 203 x10^3/uL (140-400); RED BLOOD COUNT 3.69 x10^6/uL (3.50-5.40); WHITE BLOOD COUNT 5.6 x10^3/uL (4.0-11.0)
[2019-11-22 15:14] LABS: ALBUMIN 3.7 g/dL (3.4-5.0); ALBUMIN/GLOBULIN RATIO 1.2 (1.0-1.7); CALCIUM 8.9 mg/dL (8.5-10.1); GFR 52.3; POTASSIUM 3.9 mmol/L (3.5-5.1); TOTAL BILIRUBIN 0.4 mg/dL (0.2-1.0); TOTAL PROTEIN 6.9 g/dL (6.4-8.2)
== END | disposition home or self-care (01) ==
LOC: SURGPAT 12:37
PROVIDERS: ATTEND Surgery
DX: Z01.812 Encounter for preprocedural laboratory examination (principal); Z20.828 Contact with and (suspected) exposure to other viral communicable diseases; D49.0 Neoplasm of unspecified behavior of digestive system
CPT/HCPCS: 36415; 80053; 85025; U0003

== ENCOUNTER → 2020-07-07 | Outpatient (CLI) | payer MEDICARE ==
[2020-01-08 11:00] VITALS: BP 101/63
[~2020-07-07] MED LIST changes: +LACT1CAP6 PO; +SOLI10TA2 PO
[2020-07-07 10:32] LABS: BASO % 0 % (0-3); EOS # 0.1 x10^3/uL (0.0-0.7); EOS % 2 % (0-3); HEMATOCRIT 33.4 % (36.0-47.0); HEMOGLOBIN 11.4 g/dL (12.0-15.5); LYMPH # 1.5 x10^3/uL (1.0-4.8); LYMPH % 23 % (24-48); MEAN CORPUSCULAR HEMOGLOBIN 32 pg (25-35); MEAN CORPUSCULAR HGB CONC 34 g/dL (31-37); MEAN CORPUSCULAR VOLUME 95 fL (79-100); MONO # 0.9 x10^3/uL (0.0-1.1); MONO % 13 % (0-9); NEUT % 61 % (31-73); PLATELET COUNT 199 x10^3/uL (140-400); RED BLOOD COUNT 3.52 x10^6/uL (3.50-5.40); RED CELL DISTRIBUTION WIDTH 12.9 % (11.5-14.5); WHITE BLOOD COUNT 6.6 x10^3/uL (4.0-11.0)
[2020-07-07 10:38] LABS: ALBUMIN 3.4 g/dL (3.4-5.0); CALCIUM 8.7 mg/dL (8.5-10.1); GFR 52.2; POTASSIUM 4.5 mmol/L (3.5-5.1)
--- NOTE | 2020-07-07 10:59 | EKG ---
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
[2020-07-07 23:27] LABS: HEMOGLOBIN A1C 5.8 % (4.8-5.6)
--- NOTE | 2020-07-08 08:27 | RAD ---
Exam Date: 07/07/2020 10:31 AM XR CHEST 2V Indication: Reason: PRE-OP KNEE REPLACEMENT ON 07/21/20 / Spl. Instructions: / History: Comparison: December 25, 2019 FINDINGS/ IMPRESSION: The aorta is calcified. There is persistent elevation of the right hemidiaphragm. The cardiac silhouette and pulmonary vasculature are within normal limits. There is no focal consolidation, pleural effusion or pneumothorax. The visualized osseous structures are intact. Electronically signed by: Roddy Cadena MD (07/08/2020 8:25 AM) [id number]
== END ==
LOC: SURGPAT 09:01
PROVIDERS: ATTEND Orthopaedic Surgery
DX: Z01.818 Encounter for other preprocedural examination (principal); R94.31 Abnormal electrocardiogram [ECG] [EKG]; I70.0 Atherosclerosis of aorta; M17.11 Unilateral primary osteoarthritis, right knee
CPT/HCPCS: 36415; 71046; 80048; 82040; 82306; 83036; 85025; 85610; 85651; 85730; 87641; 93005

== ENCOUNTER → 2020-07-17 | Outpatient (CLI) | payer MEDICARE ==
[2020-01-08 11:00] VITALS: BP 101/63
== END ==
LOC: LAB 13:18
PROVIDERS: ATTEND Orthopaedic Surgery
DX: Z01.812 Encounter for preprocedural laboratory examination (principal); Z20.822 Contact with and (suspected) exposure to COVID-19
CPT/HCPCS: U0003; U0005

== ENCOUNTER 2020-07-21 06:15 | Observation (INO) | payer MEDICARE ==
[~2020-07-21] VITALS: Ht 157.5 cm; Wt 58.5 kg
[2020-07-21] VITALS (9 sets, daily range): BP systolic 119–177; BP diastolic 56–88
[~2020-07-21 06:15] MED LIST changes: +GABAPENTIN 300 MG CAPSULE. PO PRN; +HYDROmorphone 2 MG/ML VIAL IVP PRN; +IV RINGERS,LACTATED 1000ML 1,000 ML IV SCH; +MORPHINE SULFATE 5 MG, KETOROLAC 30MG VIAL 30 MG, ROPIVacaine 0.5% PF 60 ML, EPINEPHrin... INT ART ONE; +TRANEXAMIC ACID in NS IVPB 50 ML INJ ONE; +ceFAZolin SODIUM IV Push 1 GM VIAL. IVP PRN; +fentaNYL PF VIAL 100 MCG/2 ML VIAL IVP PRN
[2020-07-21] MEDS ORDERED: LIDOCAINE 2% PF 5 ML VIAL. ONE (06:22)
[2020-07-21] MEDS ORDERED: DEXAMETHASONE SOD PHOS 4 MG/ML VIAL ONE (06:22)
[2020-07-21] MEDS ORDERED: ONDANSETRON PF 4 MG/2 ML VIAL. ONE (06:22)
[2020-07-21] MEDS ORDERED: PROPOFOL 10 MG/ML (20ML) VIAL. IV ONE (06:22)
[2020-07-21] MEDS: MELOXICAM 7.5 MG TABLET PO PRN ×2 (06:56→11:28)
[2020-07-21] MEDS ORDERED: TRANEXAMIC ACID in NS IVPB 100 ML ONE (07:05)
[2020-07-21] MEDS ORDERED: VANCOMYCIN 1 GM VIAL. ONE (07:08)
[2020-07-21] MEDS ORDERED: GLYCOPYRROLATE 1 MG/5 ML VIAL. ONE (07:30)
[2020-07-21] MEDS ORDERED: ROCURONIUM 50 MG/5 ML VIAL. ONE (07:31)
[2020-07-21 07:33] LABS: PROTHROMBIN TIME PATIENT 14.3 SEC (11.7-14.0)
--- NOTE | 2020-07-21 07:36 | PREOP HP ---
DATE OF SERVICE: 07/21/2020 CHIEF COMPLAINT: Right knee pain. HISTORY OF PRESENT ILLNESS: The patient is followup of a remote left total knee arthroplasty elsewhere that is doing reasonably well, but the right knee is becoming much more severe with a knock knee posture, episodes of giving way and increased pain severely affecting her activities of daily living. She is using a walker for safety. PAST MEDICAL HISTORY: Significant for hypercholesterolemia, hypothyroidism, incontinence, arthritis, hernia. PAST SURGICAL HISTORY: Left knee arthroplasty, hysterectomy, right shoulder replacement, hemorrhoidectomy, inguinal hernia repairs and bowel resection, ileostomy takedown. FAMILY HISTORY: Lung cancer in her brother, rheumatoid arthritis in mother and father. SOCIAL HISTORY: She denies smoking, alcohol or drug use. ALLERGIES: INCLUDE PREDNISONE, WHICH GIVEN HER HIGH BLOOD PRESSURE WELL SUCRALFATE. MEDICATIONS: Medication list is reviewed. PHYSICAL EXAMINATION: VITAL SIGNS: Per admission sheet. HEENT: Atraumatic, normocephalic. CARDIOVASCULAR: Regular rate and rhythm. RESPIRATORY: Lungs clear to auscultation bilaterally. ABDOMEN: Benign. EXTREMITIES: Examination of the left knee has a well-healed midline incision with good ligament balance, patellofemoral tracking from total knee arthroplasty, right knee is in significant valgus, unstable, lateral more so than medial, joint line tenderness and tightness over the lateral collateral ligament and crepitus. Normal alignment, stability, bilateral hips and ankles. IMAGING: X-rays show a well-aligned total knee arthroplasty on the left, severe tricompartmental degenerative change with ahpr-ev-zoma valgus deformity of the right knee. 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 PLAN: I went over with her the risks, benefits, postoperative course of total knee arthroplasty including the possibility of infection, nerve or blood vessel damage, medical or other anesthetic complications, continued pain, instability, among others. All her questions were answered. She wishes to proceed with surgical evaluation and treatment, total knee arthroplasty and will undergo [facility] Observation to follow. REMBERTO JONES: Hiral TID: [id number]
[2020-07-21] MEDS ORDERED: ALPRAZolam 0.25 MG TABLET PO PRN (07:45)
[2020-07-21] MEDS ORDERED: PROCHLORPERAZINE 5 MG TABLET. PO PRN (07:45)
[2020-07-21] MEDS: IV NORMAL SALINE 1000ML BAG 1,000 ML IV SCH (07:45)
[2020-07-21] MEDS ORDERED: CALCIUM CARBONATE 500 MG TAB.CHEW PO PRN (07:45)
[2020-07-21] MEDS ORDERED: DEXTROSE 50% 25 GM / 50ML DISP.SYRIN. IV PRN (07:45)
[2020-07-21] MEDS ORDERED: diphenhydrAMINE 50 MG/ML VIAL IVP PRN (07:45)
[2020-07-21] MEDS ORDERED: ceFAZolin SODIUM IV Push 1 GM VIAL. IVP SCH (07:45)
[2020-07-21] MEDS ORDERED: fentaNYL PF VIAL 100 MCG/2 ML VIAL IVP PRN (07:45)
[2020-07-21] MEDS ORDERED: MORPHINE SULFATE 2 MG/ML VIAL. IVP PRN (07:45)
[2020-07-21] MEDS ORDERED: ZOLPIDEM 5 MG TABLET. PO PRN (07:45)
[2020-07-21] MEDS ORDERED: TRANEXAMIC ACID in NS IVPB 50 ML INJ ONE (08:00)
[2020-07-21] MEDS ORDERED: SEVOFLURANE > 120 MINUTES. IH ONE (08:26)
[2020-07-21] MEDS: OXYBUTYNIN CHLORIDE 5 MG TABLET PO SCH ×3 (09:00→21:08)
[2020-07-21] MEDS ORDERED: fentaNYL PF VIAL 100 MCG/2 ML VIAL ONE ×2 (09:16→09:59)
[2020-07-21] MEDS ORDERED: MORPHINE SULFATE 2 MG/ML VIAL. ONE ×2 (09:48→10:41)
[2020-07-21] MEDS ORDERED: PROCHLORPERAZINE 10 MG/2 ML VIAL. ONE (10:00)
--- NOTE | 2020-07-21 10:05 | RAD ---
Exam performed: Right knee. HISTORY: Postop infection. DATE OF SERVICE: 07/21/2020. COMPARISON: None available Findings and impression: AP, lateral and oblique views of the right knee are obtained. Postoperative changes of total right kn ee arthroplasty is seen with prosthesis in satisfactory position. There is expected postoperative judah ma and emphysema. Electronically signed by: Nafisa Gandhi MD (07/21/2020 10:02 AM) [id number]
[2020-07-21] MEDS: PROCHLORPERAZINE 10 MG/2 ML VIAL. IVP PRN ×2 (10:09→10:18)
[2020-07-21] MEDS: fentaNYL PF VIAL 100 MCG/2 ML VIAL IVP PRN ×3 (10:09→11:44)
[2020-07-21] MEDS: LEVOTHYROXINE 88 MCG TABLET PO SCH (10:30)
[2020-07-21] MEDS: MORPHINE SULFATE 2 MG/ML VIAL. IVP PRN ×2 (10:44→10:59)
[2020-07-21] MEDS: 0.9 % SODIUM CHLORIDE 10 ML DISP.SYRIN. IV PRN ×2 (10:44→11:00)
--- NOTE | 2020-07-21 11:00 | NUR ---
Arrived to unit by bed form PACU. Awakens easily. Right leg elevated on pillow with ice pack. Dressing on right leg is d/i with LUISA. Able to wiggle toes easily, warm to touch and pedal pulses + bilaterally. IVF's intact and infusing. O2 at 2l per n/c. SCD/LUCIA on left leg and DIANNA on right foot. Oriented to room and controls. Side rails up x's 2 with call light in reach. Daughter, Tiffanie, at bedside. Cont. monitor.
[2020-07-21] MEDS: PANTOPRAZOLE 40 MG TABLET.DR. PO SCH (11:30)
[2020-07-21] MEDS: ONDANSETRON ODT 4 MG TAB.RAPDIS. PO SCH ×2 (12:00→18:00)
[2020-07-21] MEDS: ONDANSETRON PF 4 MG/2 ML VIAL. IVP SCH ×2 (12:00→18:11)
[2020-07-21] MEDS: ceFAZolin SODIUM IV Push 1 GM VIAL. IVP SCH ×2 (12:13→18:10)
--- NOTE | 2020-07-21 14:41 | PDOC4 ---
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 Postoperative diagnosis: Same Operative procedure: Right total knee arthroplasty Surgeon: Flo Assist: Demetrius wilson Anesthesia: General Estimated blood loss: 25 cc Complications: None Specimens: Cartilage surfaces to pathology Operative indications: Please see my dictated preoperative history and physical for detailed operative indications and note that we had reviewed preoperatively risks benefits postoperative course of the surgery including the possibility of infection continued pain nerve or blood vessel damage premature wear or loosening instability medical or other anesthetic complications among others and she agrees to proceed with surgical evaluation and treatment having given informed consent Operative text: Patient was identified procedure verified patient placed in the supine position on the operating table. After adequate amounts of general anesthesia were administered the left lower extremity was prepped and draped in standard sterile fashion with a thigh tourniquet and after timeout was performed patient procedure identified and verified the left lower extremity was exsanguinated by Esmarch bandage tourniquet inflated to 300 mmHg and a midline incision was made followed by a medial parapatellar approach fat pad was excised and patella everted and the distal femur drilled to accommodate the intramedullary cutting guide which was set at 7 degrees with a standard distal cut. Menisci and cruciate ligaments were excised and a tibial cut was made using the extra medullary cutting guide aligned with the second toe and severe lateral compartment tibial wear was observed and a cut was made just perfectly to the base of the lateral wear with alignment verified with a spacer and drop jeanine. Based on preparing the tibia with a size E persona trial component, her tibial bone was noted to be soft and therefore I elected to implement a 30 mm length 14 mm with tapered stem extension for supplementary fixation. Femur was sized at a size 7 and AP lateral chamfer cuts were made and ligament balancing carried out. While she had some slight medial collateral ligament pseudolaxity I did achieve excellent stability with a 14 mm trial medial congruent articular surface spacer. Based on the bone quality and the tibia I elected not to proceed with any additional constraint. Femoral lug holes were drilled and osteophytes removed from the patella and the remaining patellar cartilage was adequate and I elected not to perform any further resurfacing. She had e xcellent tracking. Trial components were removed thorough irrigation carried out with normal saline solution and the following persona components were cemented in place with polymethylmethacrylate cement: A size E persona natural tibial component with a 14 mm diameter 30 mm length cemented stem extension. A size 7 standard right persona cruciate retaining femur. Excess cement was removed with a curette and a vitamin E medial congruent 14 mm height articular spacer was locked into place and the knee held into extension until cement was dry. Irrigation again carried out with dilute Betadine lavage and normal saline solution and 1 g vancomycin was placed in the knee joint. Retinaculum closed with #1 PDS suture in a running fashion subcutaneous closure with buried Vicryl sutures subcuticular closure with three oh strata fix Monocryl. A shilo dressing was placed. Toes were noted to be warm pink following deflation of the tourniquet patient was returned to recovery room in stable condition having tolerated procedure well. Demetrius wilson was present for the procedure and assisted in patient positioning prepping draping retraction closure dressings GURU TORRES MD July 21, 2020 14:41
[2020-07-21] MEDS ORDERED: WARFARIN 7.5 MG TABLET. PO ONE (16:00)
[2020-07-21] MEDS: SENNOSIDES/DOCUSATE 8.6/50MG TABLET. PO SCH (17:21)
[2020-07-21] MEDS: MULTIVITAMIN with MINERAL TABLET. PO SCH (17:21)
[2020-07-21] MEDS: FERROUS SULFATE 325 MG TABLET. PO SCH (17:21)
[2020-07-21] MEDS: SIMVASTATIN 20 MG TABLET PO SCH (21:08)
[2020-07-22] MEDS: ceFAZolin SODIUM IV Push 1 GM VIAL. IVP SCH (00:01)
[2020-07-22] MEDS: oxyCODONE IR 5 MG TABLET PO PRN ×4 (00:18→20:45)
[2020-07-22 03:00] VITALS: BP 111/56
[2020-07-22] MEDS: ONDANSETRON PF 4 MG/2 ML VIAL. IVP SCH ×2 (06:00)
[2020-07-22] MEDS: ONDANSETRON ODT 4 MG TAB.RAPDIS. PO SCH ×2 (06:00)
[2020-07-22] MEDS ORDERED: MAGNESIUM HYDROXIDE 2,400 MG/30 ML ORAL.SUSP. PO PRN (06:00)
[2020-07-22] MEDS: GABAPENTIN 100 MG CAPSULE. PO SCH ×3 (06:25→20:48)
[2020-07-22] MEDS: LEVOTHYROXINE 88 MCG TABLET PO SCH (06:25)
[2020-07-22] MEDS: traMADol 50 MG TABLET PO SCH ×3 (06:25→17:35)
[2020-07-22 07:16] VITALS: BP 118/64
[2020-07-22] MEDS: IV NORMAL SALINE 1000ML BAG 1,000 ML IV SCH (07:45)
[2020-07-22 07:54] LABS: PROTHROMBIN TIME PATIENT 18.7 SEC (11.7-14.0)
[2020-07-22] MEDS: FERROUS SULFATE 325 MG TABLET. PO SCH ×2 (08:40→17:35)
[2020-07-22] MEDS: PANTOPRAZOLE 40 MG TABLET.DR. PO SCH (08:40)
[2020-07-22] MEDS: MULTIVITAMIN with MINERAL TABLET. PO SCH (08:40)
[2020-07-22] MEDS: SENNOSIDES/DOCUSATE 8.6/50MG TABLET. PO SCH (08:41)
[2020-07-22] MEDS: ACETAMINOPHEN 500 MG TABLET PO SCH ×3 (08:41→20:44)
[2020-07-22] MEDS: OXYBUTYNIN CHLORIDE 5 MG TABLET PO SCH ×3 (08:41→20:44)
[2020-07-22 11:20] LABS: HEMATOCRIT 30.3 % (36.0-47.0); HEMOGLOBIN 10.2 g/dL (12.0-15.5)
[2020-07-22] MEDS ORDERED: ONDANSETRON ODT 4 MG TAB.RAPDIS. PO PRN (12:00)
[2020-07-22] MEDS ORDERED: ONDANSETRON PF 4 MG/2 ML VIAL. IVP PRN (12:00)
--- NOTE | 2020-07-22 13:05 | NUR ---
Pharmacy Warfarin Dosing Note S:Pharmacy consulted to assist with anticoagulation therapy started with target INR: O:YONIS HAIRSTON is a 89 year old F with LABS: Last INR: 1.6 Last HGB: 10.2 Last HCT: 30.3 Last PLT: - Last dose of 7.5 mg given on 07/21/20 at 1721 Previous Regimen: Vitamin K given: Drug Interaction Changes: Ongoing Drug Interactions: A:INR of 1.6 is within desired range. Target range for this patient is: P: Warfarin dose: Hold Today at 1600 Bridge Therapy: Next INR due in am Pharmacy anticoagulation service will continue to follow. GENEVA BENNETT [facility], 07/22/20 [id number]
[2020-07-22] MEDS ORDERED: BISACODYL 10 MG SUPP.RECT. PR PRN (16:00)
[2020-07-22 18:11] VITALS: BP 132/57
--- NOTE | 2020-07-22 20:16 | PDOC ---
PROGRESS NOTES Date of Service DATE: 07/22/20 TIME: 20:11 Subjective Subjective Problems overnight: Got up and around to the bathroom a few times yesterday and the knee feels much more stable than preoperatively pain controlled Objective Vital Signs Vital Signs Date Time Temp Pulse Resp B/P (MAP) Pulse Ox O2 Delivery O2 Flow Rate FiO2 07/22/20 19:43 Room Air 07/22/20 18:11 98.5 84 20 132/57 (82) 95 98.5 07/22/20 07:16 2.0 Physical Exam Nathalie dressing clean dry intact she has good early range of motion distal neurovascular status intact Labs Laboratory Tests Test 07/21/20 06:45 07/22/20 07:00 Prothrombin Time 14.3 SEC (11.7-14.0) 18.7 SEC (11.7-14.0) Prothromb Time International Ratio 1.2 (0.8-1.1) 1.6 (0.8-1.1) Activated Partial Thromboplast Time 48 SEC (24-38) Hemoglobin 10.2 g/dL (12.0-15.5) Hematocrit 30.3 % (36.0-47.0) Mean Corpuscular Hemoglobin Concent 34 g/dL (31-37) Laboratory Tests Test 07/22/20 07:00 Hemoglobin 10.2 g/dL (12.0-15.5) Hematocrit 30.3 % (36.0-47.0) Mean Corpuscular Hemoglobin Concent 34 g/dL (31-37) Prothrombin Time 18.7 SEC (11.7-14.0) Prothromb Time International Ratio 1.6 (0.8-1.1) Imaging X-rays show excellent alignment and sizing total knee arthroplasty Assessment Assessment POD#1 total knee arthroplasty Plan Plan of Care Continue mobilize with physical therapy Warfarin anticoagulation Likely home health placement when stable Justicifation of Admission Dx: Justifications for Admission: Justification of Admission Dx: N/A GURU TORRES MD July 22, 2020 20:16
[2020-07-22] MEDS: SIMVASTATIN 20 MG TABLET PO SCH (20:44)
[2020-07-23] MEDS: traMADol 50 MG TABLET PO SCH ×3 (00:30→11:53)
[2020-07-23] MEDS: ACETAMINOPHEN 500 MG TABLET PO SCH ×3 (03:11→14:41)
[2020-07-23] MEDS: PANTOPRAZOLE 40 MG TABLET.DR. PO SCH (05:50)
[2020-07-23] MEDS: LEVOTHYROXINE 88 MCG TABLET PO SCH (05:50)
[2020-07-23] MEDS: GABAPENTIN 100 MG CAPSULE. PO SCH (05:50)
[2020-07-23 06:00] VITALS: BP 136/70
[2020-07-23 07:58] LABS: PROTHROMBIN TIME PATIENT 21.2 SEC (11.7-14.0)
[2020-07-23] MEDS: oxyCODONE IR 5 MG TABLET PO PRN ×2 (07:58→14:40)
[2020-07-23] MEDS: SENNOSIDES/DOCUSATE 8.6/50MG TABLET. PO SCH (07:59)
[2020-07-23] MEDS: FERROUS SULFATE 325 MG TABLET. PO SCH (07:59)
[2020-07-23] MEDS: MULTIVITAMIN with MINERAL TABLET. PO SCH (07:59)
[2020-07-23 10:18] LABS: HEMATOCRIT 31.8 % (36.0-47.0); HEMOGLOBIN 10.8 g/dL (12.0-15.5)
[2020-07-23] MEDS ORDERED: OXYC5CAP PO (10:43)
--- NOTE | 2020-07-23 10:45 | SNU/HH DC ---
DISCHARGE WITH HOME HEALTH DISCHARGE INFORMATION: Discharge Date: July 23, 2020 Final Diagnosis: Status post total knee arthroplasty Condition on Discharge: Stable CODE STATUS: Code Status: Full HOME HEALTH: Face to Face: I certify this patient is under my care and that I, or a nurse practitioner or physician's service center assistant working with me, had a face to face encounter that meets the physician face to face encounter requirements with this patient on [07/23/2020]. Medical Complications: S/P Joint Replacement Fci For: Assess/Skilled Observatio RN For Eval/Treatment: Yes Physical Therapy For: Evalulation/Treatment Pt Meets Homebound Status: Limited distance walking POST DISCHARGE ORDERS: Activity Instructions for Disc: Activity as tolerated Weight Bearing Status after Di: As tolerated Bathing Instructions: Shower-keep dressing dry, No Tub Bath until see DIET AFTER DISCHARGE: Regular Wound/Incision Care: Ice to area for comfort, Do not change dressing (Keep shilo dressing intact unless saturated, when suction machine stops cut tail and tape over to maintain seal) FOLLOW-UP: Follow up with: Dr. Rossi or Pat 2 weeks postoperatively Warfarin Follow UP: [place] [facility] to manage dosage and testing TREATMENT/EQUIPMENT ORDERS: Adaptive Equipment Issued: Front wheeled walker CERTIFICATION STATEMENT: Certification Statement: Certification Statement: Based on the above finding, I certify that this patient is confined to the home and needs intermittent usp care, physical therapy and/or speech therapy, or continues to need occupational therapy.~ This patient is under my care, and I have initiated the establishment of the plan of care.~ This patient will be followed by myself or a community physician who will periodically review the plan of care. Home Meds Active Scripts Hydrocodone/Apap 7.5-325 (NORCO 7.5-325 TABLET) 1 Each Tablet, 1 TAB PO PRN Q6HRS PRN for PAIN, #20 TAB 0 Refills Prov:NICKEL,CATINA L TOOL DESIGN DRAFTER 12/26/17 Reported Medications Solifenacin Succinate (VESICARE) 10 Mg Tablet, 1 TAB PO DAILY for BLADDER SPASMS for 30 Days, #30 TAB 0 Refills 07/07/20 Lactobacillus Acidophilus (PROBIOTIC) 1 Each Capsule, 1 CAP PO TID for NA for 10 Days, #30 CAP 0 Refills 07/07/20 Levothyroxine Sodium (LEVOTHYROXINE SODIUM) 88 Mcg Tablet, 1 TAB PO DAILY, #30 TAB 5 Refills 12/20/17 Omeprazole (OMEPRAZOLE) 20 Mg Capsule.dr, 1 CAP PO DAILY, #30 CAP 5 Refills 06/29/17 Cholecalciferol (Vitamin D3) (VITAMIN D3) 2,000 Unit Tablet, 2000 UNIT PO DAILY 01/12/16 Multivitamin (ONCE DAILY) 1 Each Tablet, 1 EACH PO DAILY 01/12/16 Alprazolam (ALPRAZOLAM) 0.25 Mg Tablet, 0.25 MG PO PRN Q6HRS PRN for ANXIETY / AGITATION, TAB 0 Refills 01/12/16 Naproxen Sodium (ALEVE) 220 Mg Capsule, 440 MG PO BID PRN for PAIN, CAP 01/12/16 Simvastatin (SIMVASTATIN) 20 Mg Tablet, 20 MG PO HS 04/02/13 GURU ROSSI MD July 23, 2020 10:45
--- NOTE | 2020-07-23 11:17 | NUR ---
Pharmacy Warfarin Dosing Note S:Pharmacy consulted to assist with anticoagulation therapy started 07/21/20 with target INR: 1.6 - 2.5 O:YONIS HAIRSTON is a 89 year old F with TKA LABS: Last INR: 1.9 Last HGB: 10.8 Last HCT: 31.8 Last PLT: - Last dose of Hold given on 07/21/20 at 1721 Previous Regimen: Vitamin K given: N Drug Interaction Changes: Ongoing Drug Interactions: A:INR of 1.9 is within desired range. Target range for this patient is: 1.6 - 2.5 P: Warfarin dose: 3 mg Today at 1600. Bridge Therapy: None Next INR due tomorrow. Pharmacy anticoagulation service will continue to follow. Khoa Thompson RPH, 07/23/20 1117 Addendum: 07/23/20 at 1136 by Khoa Thompson RPH PHA Next INR Monday.
[2020-07-23] MEDS ORDERED: WARF3TAB50 PO (11:39)
[2020-07-23] MEDS ORDERED: TRAM50TA PO (11:47)
[2020-07-23] MEDS: OXYBUTYNIN CHLORIDE 5 MG TABLET PO SCH ×2 (11:54→14:40)
[2020-07-23] MEDS ORDERED: WARFARIN 3 MG TABLET. PO ONE (14:00)
--- NOTE | 2020-07-23 16:00 | NUR ---
reviewed written discharge instructions. reviewed home health, medications coumadin tramadol and oxy ir and side effects. restrictions activities of daily living such as bathing and ambulation awaiting daughter.
--- NOTE | 2020-07-23 16:25 | NUR ---
dismissed to home with daughter.
== END 2020-07-23 16:25 | disposition home health service (06) ==
LOC: SURG 06:15 → 4 SOUTHEST 07:35
PROVIDERS: ADMIT Orthopaedic Surgery; ATTEND Orthopaedic Surgery
DX: M17.11 Unilateral primary osteoarthritis, right knee (principal); E78.00 Pure hypercholesterolemia, unspecified; E03.9 Hypothyroidism, unspecified; M19.90 Unspecified osteoarthritis, unspecified site; K46.9 Unspecified abdominal hernia without obstruction or gangrene; Z90.710 Acquired absence of both cervix and uterus; Z96.611 Presence of right artificial shoulder joint; Z96.652 Presence of left artificial knee joint; Z79.899 Other long term (current) drug therapy; Z98.890 Other specified postprocedural states
CPT/HCPCS: 27447; 36415; 73560; 85014; 85018; 85610; 85730; 86850; 86900; 86901; 88305; 88311; 96361; 96374; 96375; 96376; 97116; 97150; 97162; 97166; 97530; 97535; A4213; A4930; A6223; A6253; A6258; A6402; A6450; A6550; C1713; C1755; C1776; G0378; G0379; J0171; J0690; J0780; J1100; J1885; J2270; J2405; J2704; J2795; J3010; J3370; J3490; J7030

== ENCOUNTER 2020-07-27 16:30 | Emergency (ER) | payer MEDICARE ==
[~2020-07-27] VITALS: Ht 152.4 cm; Wt 68.0 kg
[~2020-07-27 16:30] MED LIST changes: -GABAPENTIN 300 MG CAPSULE. PO PRN; -HYDROmorphone 2 MG/ML VIAL IVP PRN; -IV RINGERS,LACTATED 1000ML 1,000 ML IV SCH; -MORPHINE SULFATE 5 MG, KETOROLAC 30MG VIAL 30 MG, ROPIVacaine 0.5% PF 60 ML, EPINEPHrin... INT ART ONE; +OXYC5CAP PO; +TRAM50TA PO; -TRANEXAMIC ACID in NS IVPB 50 ML INJ ONE; +WARF3TAB50 PO; -ceFAZolin SODIUM IV Push 1 GM VIAL. IVP PRN; -fentaNYL PF VIAL 100 MCG/2 ML VIAL IVP PRN
[2020-07-27] MEDS ORDERED: MORPHINE SULFATE 10 MG/ML VIAL. IM ONE (17:15)
--- NOTE | 2020-07-27 17:42 | RAD ---
EXAM: AP, oblique, lateral views of the right knee DATE: 07/27/2020 5:19 PM INDICATION: Reason: pain post op / Spl. Instructions: / History: . COMPARISON: 07/22/2019 FINDINGS/ IMPRESSION: 1. Changes of right total knee arthroplasty, in stable alignment without definite hardware complicat ion or fracture. 2. Small right knee joint effusion. Electronically signed by: Arpit Gallo MD (07/27/2020 5:40 PM) BLAYNE
[2020-07-27 18:34] VITALS: BP 161/88
--- NOTE | 2020-07-27 18:42 | PHYS DOC ---
Past Medical History Past Medical History: Arthritis, GERD, High Cholesterol, Hypertension, Other Additional Past Medical Histor: THYROID DZ, OVERACTIVE BLADDER (JERALD SANFORD VASCULAR MANAGER) Past Surgical History: Knee Replacement, Other Additional Past Surgical Histo: parital hysterectomy,R SHOULDER REPLACEMENT,MULTIPLE HERNIA (JERALD SANFORD VASCULAR MANAGER) Smoking Status: Never Smoker Alcohol Use: None Drug Use: None (JERALD SANFORD APRN) General Adult EDM: Chief Complaint: KNEE SWELLING HPI: HPI: Patient is a 89 year old female who presents to the ED today complaining of 10 out of 10 right knee pain, symptoms began 3 days ago. Patient states she had right knee replacement a week ago, she states she has been doing well until Monday when she noted increased pain, patient states the pain is worse on ambulation. Patient states she has tried taking oxycodone and her tramadol with no relief. States she called the orthopedic doctor prior to coming to the ED and spoke to somebody in the clinic. Describes the pain as sharp and constant. Denies any injuries. Patient herself is requesting knee x-rays. (JERALD SANFORD VASCULAR MANAGER) Review of Systems: Review of Systems: Constitutional: Denies fever or chills. [] : Denies dysuria. [] Musculoskeletal: Reports right knee pain Integument: Denies rash. [] Neurologic: Denies headache, focal weakness or sensory changes. [] Psychiatric: Denies depression or anxiety. [] (JERALD SANFORD VASCULAR MANAGER) Heart Score: C/O Chest Pain: N/A Risk Factors: Risk Factors: DM, Current or recent (<one month) smoker, HTN, HLP, family history of CAD, obesity. Risk Scores: Score 0 - 3: 2.5% MACE over next 6 weeks - Discharge Home Score 4 - 6: 20.3% MACE over next 6 weeks - Admit for Clinical Observation Score 7 - 10: 72.7% MACE over next 6 weeks - Early Invasive Strategies (JERALD SANFORD VASCULAR MANAGER) Current Medications: Current Medications Medications (Trade) Dose Ordered Sig/Candi Start Time Stop Time Status Last Admin Dose Admin Morphine Sulfate (Morphine Sulfate) 5 mg 1X ONCE 07/27/20 17:15 07/27/20 17:16 DC 07/27/20 17:31 5 MG (JERALD SANFORD APRN) Allergies: Allergies: Allergies Coded Allergies Type Severity Reaction Last Updated Verified prednisone Allergy Intermediate "makes me crazy" 07/21/20 Yes sucralfate Allergy Intermediate loses voice 07/21/20 Yes (JERALD SANFORD APRN) Physical Exam: PE: Constitutional: Well developed, well nourished, no acute distress, non-toxic appearance. [] Skin: Warm, dry, no erythema, no rash. [] Back: No tenderness, no CVA tenderness. [] Extremities: Right knee still in postop dressing no drainage, no redness, no warmth. Range of motion is slightly limited to the knee due to pain. There is some trace edema to the right foot. +2 right pedal pulse. Cap refill less than 2 seconds to the right toes Neurologic: Alert and oriented X 3, normal motor function, normal sensory function, no focal deficits noted. [] Psychologic: Affect normal, judgement normal, mood normal. [] (JERALD SANFORD APRN) Current Patient Data: Vital Signs: Vital Signs Date Time Temp Pulse Resp B/P (MAP) Pulse Ox O2 Delivery O2 Flow Rate FiO2 07/27/20 17:31 18 96 Room Air 07/27/20 17:08 99.4 84 178/79 (112) 99.4 (JERALD SANFORD APRN) EKG: EKG: [] (JERALD SANFORD APRN) Radiology/Procedures: Radiology/Procedures: []PROCEDURE: KNEE RIGHT 3V EXAM: AP, oblique, lateral views of the right knee DATE: 07/27/2020 5:19 PM INDICATION: Reason: pain post op / Spl. Instructions: / History: . COMPARISON: 07/22/2019 FINDINGS/ IMPRESSION: 1. Changes of right total knee arthroplasty, in stable alignment without definite hardware complication or fracture. 2. Small right knee joint effusion. Electronically signed by: Arpit Munoz MD (07/27/2020 5:40 PM) [facility] DICTATED and SIGNED BY: ARPIT MUNOZ MD DATE: 07/27/20 [id number] 0 (JERALD SANFORD APRN) Course & Med Decision Making: Course & Med Decision Making Pertinent Labs and Imaging studies reviewed. (See chart for details) This is a 89-year-old female patient presenting to the ED today with right knee pain, patient had right knee arthroplasty a week ago. Right knee x-rays are negative for any acute findings, noted for small joint effusion. Spoke with Dr. Torres. Discharge patient to home. She has an appointment in the clinic tomorrow ice elevation encouraged as well as taking pain medicine at home (JERALD SANFORD APRN) Course & Med Decision Making The patient was seen and interviewed as well as examined at the bedside. The chart was reviewed. The case was discussed. Agree with the plan of care. (JEREMIAH MICHELLE DO) Dragon Disclaimer: Dragon Disclaimer: This electronic medical record was generated, in whole or in part, using a voice recognition dictation system. (JERALD SANFORD APRN) Departure Departure Impression: Primary Impression: Knee pain, right Qualified Codes: M25.561 - Pain in right knee Disposition: HOME / SELF CARE / HOMELESS Condition: STABLE Referrals: BEVERLY SPENCER MD (PCP) GURU TORRES MD Follow-up tomorrow Patient Instructions: Knee Pain, [id number] Additional Instructions: You were evaluated in the emergency room for knee pain, your right knee x-rays are negative for any acute findings. We encourage you to ice and elevate the extremity. Take your pain medicine at home as prescribed. Follow-up with Dr. Torres tomorrow JERALD SANFORD APRN July 27, 2020 18:42 JEREMIAH MICHELLE DO July 29, 2020 19:06
== END 2020-07-27 19:14 | disposition home or self-care (01) ==
LOC: ER 16:30
DX: M25.561 Pain in right knee (principal); K21.9 Gastro-esophageal reflux disease without esophagitis; E78.00 Pure hypercholesterolemia, unspecified; I10 Essential (primary) hypertension; Z90.711 Acquired absence of uterus with remaining cervical stump; Z88.5 Allergy status to narcotic agent; Z88.8 Allergy status to other drugs, medicaments and biological substances
CPT/HCPCS: 73562; 96372; 99283; J2270

== ENCOUNTER 2020-08-27 12:38 | Inpatient (IN) | payer MEDICARE ==
[~2020-08-27] VITALS: Ht 152.4 cm; Wt 68.0 kg
--- NOTE | 2020-08-27 12:49 | PHYS DOC ---
Past Medical History Past Medical History: Arthritis, GERD, High Cholesterol, Hypertension, Other Additional Past Medical Histor: THYROID DX, OVERACTIVE BLADDER Past Surgical History: Knee Replacement, Other Additional Past Surgical Histo: parital hysterectomy,R SHOULDER REPLACEMENT, MULTIPLE HERNIA Smoking Status: Never Smoker Alcohol Use: None Drug Use: None General Adult EDM: Chief Complaint: POST-OP PROBLEM HPI: HPI: This is a pleasant 89-year-old female who had a total knee replacement by Dr. Rossi recently who was sent to a skilled care facility. There was some confusion and miscommunication about wound VAC therapy. Patient has developed erythema of the leg and fever. Onset 4 to 5 days. Duration constant. No alleviating factors. Dr. Rossi called prior to the patient's arrival and asked that we try to hold off on antibiotic use unless absolutely necessary until we can get an arthrocentesis performed to clarify cellulitis versus septic joint. Review of systems negative for chest pain shortness of breath abdominal pain vomiting. She denies headache. All other review of systems negative. Heart Score: C/O Chest Pain: No Risk Factors: Risk Factors: DM, Current or recent (<one month) smoker, HTN, HLP, family history of CAD, obesity. Risk Scores: Score 0 - 3: 2.5% MACE over next 6 weeks - Discharge Home Score 4 - 6: 20.3% MACE over next 6 weeks - Admit for Clinical Observation Score 7 - 10: 72.7% MACE over next 6 weeks - Early Invasive Strategies Allergies: Allergies: Allergies Coded Allergies Type Severity Reaction Last Updated Verified prednisone Allergy Intermediate "makes me crazy" 07/21/20 Yes sucralfate Allergy Intermediate loses voice 07/21/20 Yes Physical Exam: PE: Constitutional: Well developed, well nourished, no acute distress, non-toxic appearance. [] HENT: Normocephalic, atraumatic, bilateral external ears normal, oropharynx moist, no oral exudates, nose normal. [] Eyes: PERRLA, EOMI, conjunctiva normal, no discharge. [] Neck: Normal range of motion, no tenderness, supple, no stridor. [] Cardiovascular:Heart rate regular rhythm, no murmur [] Lungs & Thorax: Bilateral breath sounds clear to auscultation [] Abdomen: Bowel sounds normal, soft, no tenderness, no masses, no pulsatile masses. [] Skin: Warm, dry, no erythema, no rash. [] Back: No tenderness, no CVA tenderness. [] Extremities: The patient's right lower extremity is erythematous and swollen from about the mid tibia to the mid femur. She has a close dressing on the lateral portion of the knee. The erythematous region is warm to touch. She has pain in the area but has range of motion of the joint. The extremity is neurovascular intact with a palpable pulse and 2-second cap refill. Left lower extremity and upper extremities are neurovascularly intact with palpable pulse nontender with normal range of motion of joints. Unremarkable. Neurologic: Alert and oriented X 3, normal motor function, normal sensory function, no focal deficits noted. [] Psychologic: Affect normal, judgement normal, mood normal. [] EKG: EKG: [] Radiology/Procedures: Radiology/Procedures: [][facility] [address] [place] [address] IMAGING REPORT Signed PATIENT: YONIS HAIRSTON MACCOUNT: [id number] : 1930 LOCATION: ER AGE: 89 SEX: F EXAM STATUS: PRE ER ORD. PHYSICIAN: ANTONY MORRISON MD REASON: right knee pain after surgery PROCEDURE: KNEE RIGHT 3V EXAM: AP, lateral and oblique views of the right knee DATE: 08/27/2020 12:51 PM INDICATION: Reason: right knee pain after surgery / Spl. Instructions: / History: COMPARISON: 08/01/2020 FINDINGS: Changes of constrained longstem right total knee arthroplasty, in stable alignment without definite hardware competition or fracture. Small right knee joint effusion. Skin gautam are seen anteriorly. Soft tissue swelling about the right lower leg. IMPRESSION: Changes of constrained longstem right total knee arthroplasty, in stable alignment without definite hardware competition or fracture Electronically signed by: Arpit Munoz MD (08/27/2020 1:25 PM) [facility] DI[facility]ATED and SIGNED BY: ARPIT MUNOZ MD DATE: 08/27/20 [id number] Course & Med Decision Making: Course & Med Decision Making Pertinent Labs and Imaging studies reviewed. (See chart for details) [] 89-year-old female presenting with cellulitis/infection in the right lower extremity. On arrival the patient is afebrile. Satting well on room air. CBC shows white blood cell count normal. Hemoglobin 9.9. Chemistry panel shows creatinine 1.2 with a BUN of 22. Previous creatinine of 1.0. Lactic acid 2.7. Time is now 1349. I just spoke with Dr. Rossi. He is asking me to hold off on antibiotics until we can try and obtain an arthrocentesis prior to the administration of antibiotics. The patient does not appear septic and is not in extremis. He is going to call his partner and/or nurse practitioner to come and do the arthrocentesis. Time is now 1420 Dr. Arrieta has arrived and is currently doing the arthrocentesis. Antibiotics have been ordered and will be given after the arthrocentesis has been performed. I have spoken with Dr. Bridges. Will admit the patient to the hospital. IV vancomycin has been ordered. Sheri Disclaimer: Sheri Disclaimer: This electronic medical record was generated, in whole or in part, using a voice recognition dictation system. Departure Departure Impression: Primary Impression: Cellulitis Disposition: ADMITTED INPATIENT Condition: STABLE Referrals: BEVERLY SPENCER MD (PCP) ANTONY MORRISON MD Aug 27, 2020 12:49
--- NOTE | 2020-08-27 13:28 | RAD ---
EXAM: AP, lateral and oblique views of the right knee DATE: 08/27/2020 12:51 PM INDICATION: Reason: right knee pain after surgery / Spl. Instructions: / History: COMPARISON: 08/01/2020 FINDINGS: Changes of constrained longstem right total knee arthroplasty, in stable alignment without definite h ardware competition or fracture. Small right knee joint effusion. Skin gautam are seen anteriorly. S oft tissue swelling about the right lower leg. IMPRESSION: Changes of constrained longstem right total knee arthroplasty, in stable alignment without definite h ardware competition or fracture Electronically signed by: Arpit Gallo MD (08/27/2020 1:25 PM) BLAYNE
[2020-08-27 13:40] LABS: CALCIUM 8.3 mg/dL (8.5-10.1); CREATININE 1.2 mg/dL (0.6-1.0); GFR 42.3
[2020-08-27 13:46] LABS: ALBUMIN 2.7 g/dL (3.4-5.0); TOTAL BILIRUBIN 0.6 mg/dL (0.2-1.0); TOTAL PROTEIN 5.5 g/dL (6.4-8.2)
[2020-08-27 13:55] LABS: BASO % 0 % (0-3); EOS % 1 % (0-3); HEMATOCRIT 30.1 % (36.0-47.0); HEMOGLOBIN 9.9 g/dL (12.0-15.5); LYMPH % 12 % (24-48); MEAN CORPUSCULAR HEMOGLOBIN 32 pg (25-35); MEAN CORPUSCULAR HGB CONC 33 g/dL (31-37); MEAN CORPUSCULAR VOLUME 97 fL (79-100); MONO # 0.9 x10^3/uL (0.0-1.1); MONO % 11 % (0-9); NEUT # 6.5 x10^3/uL (1.8-7.7); NEUT % 76 % (31-73); PLATELET COUNT 183 x10^3/uL (140-400); RED BLOOD COUNT 3.11 x10^6/uL (3.50-5.40); RED CELL DISTRIBUTION WIDTH 15.1 % (11.5-14.5); WHITE BLOOD COUNT 8.5 x10^3/uL (4.0-11.0)
[2020-08-27] MEDS ORDERED: VANCOMYCIN 1 GM in IV NORMAL SALINE 250ML 250 ML IV ONE (14:00)
[2020-08-27] MEDS ORDERED: IV NORMAL SALINE 1000ML BAG 1,000 ML IV ONE (14:15)
[2020-08-27] MEDS ORDERED: VANCOMYCIN 1.75 GM in IV NORMAL SALINE 500ML BAG 500 ML IV ONE (14:30)
--- NOTE | 2020-08-27 14:52 | PDOC4 ---
PROCEDURE Procedure I was asked by Dr. Rossi to aspirate this ladies knee before antibiotics are initiated, since he's in [place] and not immediately available. Ms. Mortensen had a right TKA recently, then a supracondylar femur fracture which was treated with immediate revision TKA. She is in the ER with plans to be admitted with serous drainage from incision and to start antibiotics. Exam shows serous drainage present from several areas of stapled incision. Moderate knee effusion. Mild cellulitis. Moderate thigh and knee swelling. XR reviewed, extensive revision TKA with distal femoral replacement. After verbal and written consent I prepared her knee under sterile fashion with Betadine. I used sterile gloves. I aspirated the knee from a superolateral portal using a 16-gauge needle and a 10 mL syringe. I easily retrieved 10 mL of very dark-colored fluid earline brown to black, without any mimi pus. This seems like a combination of serous fluid and blood. I sense that there is quite a bit more fluid in the knee and perhaps fluid in the suprapatellar soft tissues. The fluid aspirated from the knee joint itself is not the same color as the superficial serous drainage. I suspect there is both an intra-articular hematoma and a subcutaneous seroma. The fluid was sent in specimen cups and a gel free lithium heparin tube and labeled by me. I ordered body fluid cell count, and cultures including aerobic, anaerobic, Gram stain, AFB, and fungal. Antibiotics can be started now. BARBARA ARREDONDO MD Aug 27, 2020 14:52
[2020-08-27 16:01] VITALS: BP 148/53
[2020-08-27] MEDS ORDERED: HYDROmorphone 2 MG/ML VIAL IVP PRN (16:30)
[2020-08-27] MEDS ORDERED: fentaNYL PF VIAL 100 MCG/2 ML VIAL IVP PRN (16:30)
[2020-08-27] MEDS ORDERED: PROCHLORPERAZINE 10 MG/2 ML VIAL. IVP PRN (16:30)
[2020-08-27] MEDS ORDERED: IV RINGERS,LACTATED 1000ML 1,000 ML IV SCH (16:30)
[2020-08-27] MEDS ORDERED: ACET500T68 PO (16:40)
[2020-08-27] MEDS ORDERED: DOCU-109 PO (16:40)
[2020-08-27] MEDS ORDERED: MELA5TAB20 PO (16:40)
[2020-08-27] MEDS ORDERED: TRAM50TA PO (16:40)
[2020-08-27 17:31] LABS: BF CLARITY TURBID; BF COLOR RED; BF MON % 2 %; BF OTHER % 0 %; BF PMN % 98 %; BF RBC COUNT 102000 /cmm (Not Established); BF SOURCE SYNOVIAL; BF WBC COUNT 2100 /cmm (Not Established)
[2020-08-27 18:40] LABS: % BANDS 13 % (0-9); % LYMPHS 10 % (24-48); % MONOS 8 % (0-10); % SEGS 69 % (35-66); PLT ESTIMATE ADEQUATE (ADEQUATE)
--- NOTE | 2020-08-27 19:26 | HP ---
ADMIT DATE: 08/27/2020 CHIEF COMPLAINT: Right knee swelling, pain, discharge. HISTORY OF PRESENT ILLNESS: The patient is a pleasant 89-year-old female who underwent a right knee replacement with Dr. Rossi on 07/21 last month. She was doing relatively well, but then she fell and refractured the knee. I spoke with Dr. Rossi about the procedure. He had to go back in and put in a complex rotating hinge as she did not have much bone left above the previous knee replacement. Postoperatively, she was sent to [place] for rehabilitation. She was doing relatively well once again, but then started having some drainage. Dr. Rossi requested that she be put on a wound VAC. Apparently, the wound VAC situation was not helping much. Dr. Rossi states that it probably was not put on properly. Nevertheless, the patient came to our ER today with more drainage and some swelling and pain. Dr. Rossi called Dr. Cortes and had him do an arthrocentesis. The patient is now being examined on the medical floor, where she is getting ready to go to surgery here in a few minutes. PAST MEDICAL HISTORY: The above-mentioned complex knee replacement twice; arthritis; GERD; hyperlipidemia; hypertension; thyroid surgery; overactive bladder; partial hysterectomy, right; multiple hernia repairs. ALLERGIES: PREDNISONE AND CARAFATE. FAMILY HISTORY: Diabetes. SOCIAL HISTORY: She does not drink, smoke or take drugs. She is retired; has 3 children, one of her daughters is here, she seems to be a very good support for her. MEDICATIONS: Reviewed. Please refer to the MRAD. REVIEW OF SYSTEMS: GENERAL: No history of weight change, weakness or fevers. SKIN: No bruising, hair changes or rashes. EYES: No blurred, double or loss of vision. NOSE AND THROAT: No history of nosebleeds, hoarseness or sore throat. HEART: No history of palpitations, chest pain or shortness of breath on exertion. LUNGS: Denies cough, hemoptysis, wheezing or shortness of breath. GASTROINTESTINAL: Denies changes in appetite, nausea, vomiting, diarrhea or constipation. GENITOURINARY: No history of frequency, urgency, hesitancy or nocturia. NEUROLOGIC: Denies history of numbness, tingling, tremor or weakness. PSYCHIATRIC: No history of panic, anxiety or depression. ENDOCRINE: No history of heat or cold intolerance, polyuria or polydipsia. EXTREMITIES: She complains of right knee pain. PHYSICAL EXAMINATION: VITALS: Within normal limits and are stable. GENERAL: No apparent distress. Alert and oriented. HEENT: Normal cephalic atraumatic, external auditory canals are patent. EYES: Extraocular muscles are intact, pupils are equally round and reactive to light and accommodation. MUSCULOSKELETAL: Well developed, well nourished, good range of motion. ENDOCRINE: No thyromegaly was palpated. LYMPHATICS: No cervical chain or axillary nodes were noted. HEMATOPOIETIC: No bruising. NECK: Supple, no JVD, no thyromegaly was noted. LUNGS: Clear to auscultation in all lung thomas without rhonchi or wheezing. HEART: RRR, S1, S2 present. Peripheral pulses intact, no obvious murmurs were noted. ABDOMEN: Soft, nontender. Positive bowel sounds, no organomegaly, normal bowel sounds. EXTREMITIES: The right knee has clean, dry, intact dressing. NEUROLOGIC: Normal speech, normal tone. A and O x 3, moves all extremities, no obvious focal deficits. PSYCHIATRIC: Normal affect, normal mood. Stable. SKIN: No ulcerations or rashes, good skin turgor, no jaundice. VASCULAR: Good capillary refill, neurovascular bundle appears to be intact. LABORATORY DATA: White count is 8, hemoglobin 9.9, platelets 183. Electrolytes are normal other than BUN of 22 and a creatinine of 1.2. Glucose is a little high at 165. Albumin is 2.7. The synovial fluid showed a red appearance with some turbidity; 2100 nucleated cells; but also had 102,000 red cells with 98 polymorphic cells and 2 mononuclear cells. SARS testing is negative. ASSESSMENT AND PLAN: Right knee swelling and discharge and pain after 2 recent knee replacements. It is not clear whether this is infected or not. I spoke with Dr. Rossi a few minutes ago. He wants me to go ahead and hold off on antibiotics until he takes the patient to surgery and gets a clean biopsy and I certainly agree and appreciate his input. Postoperatively, she is going to need wound care, PT, OT and probably go to another [facility] facility. GONSALO DR: Zuleika TID: [id number]
[2020-08-27] MEDS ORDERED: LIDOCAINE 2% PF 5 ML VIAL. ONE (19:50)
[2020-08-27] MEDS ORDERED: PROPOFOL 10 MG/ML (20ML) VIAL. IV ONE (19:50)
[2020-08-27] MEDS ORDERED: fentaNYL PF VIAL 100 MCG/2 ML VIAL ONE ×2 (19:58→21:45)
[2020-08-27] MEDS ORDERED: ONDANSETRON PF 4 MG/2 ML VIAL. ONE (20:36)
[2020-08-27] MEDS ORDERED: DEXAMETHASONE SOD PHOS 4 MG/ML VIAL ONE (20:36)
[2020-08-27] MEDS ORDERED: PHENYLEPHRINE in 0.9% NACL PF 1 MG/10 ML SYRINGE. IV ONE (20:37)
[2020-08-27] MEDS ORDERED: SEVOFLURANE 61 TO 120 MINUTES. IH ONE (21:22)
[2020-08-27] MEDS: fentaNYL PF VIAL 100 MCG/2 ML VIAL IVP PRN ×2 (21:50→21:56)
[2020-08-27] MEDS ORDERED: MORPHINE SULFATE 2 MG/ML INJ. ONE (22:01)
[2020-08-27] MEDS: MORPHINE SULFATE 2 MG/ML INJ. IVP PRN ×2 (22:03→22:13)
[2020-08-27] MEDS ORDERED: HYDROmorphone 2 MG/ML VIAL ONE (22:21)
--- NOTE | 2020-08-27 22:28 | CONS ---
DATE OF CONSULTATION: 08/27/2020 ORTHOPEDIC CONSULTATION REQUESTING PHYSICIAN: Dr. Mireles. REASON FOR CONSULTATION: Right knee drainage. HISTORY OF PRESENT ILLNESS: The patient is a pleasant 89-year-old female who originally underwent a total knee arthroplasty by me and during the postoperative recovery, unfortunately had fallen, sustaining a supracondylar fracture just above the knee joint. Her bone was inadequate to achieve any fixation at that point and she underwent a revision to a distal femoral replacement rotating hinged knee and had been discharged to a rehabilitation facility. There was some initial drainage reported at the facility and I had asked that a wound VAC to be placed. Facility said they were unable to do that, unable to obtain transportation to bring the patient in for evaluation and a wound VAC was eventually placed and follow up in my office on Monday of this week noted that the wound VAC did not have a boundary layer against the skin as ordered. I provided the facility with Adaptic boundary layer to place at the change of her wound VAC as the supplies were not available at our clinic and apparently while the wound was reported to look okay from the wound care providers on Monday when the change occurred. She has apparently had some ongoing drainage and had reported episode of hypotension and a concern that the wound was not looking good along with her hypotension and other findings. I directed that she be brought into the Emergency Department and evaluated for admission. As I was unavailable at an outside clinic and not information officer when she came in, I had asked Dr. Cortes if he would aspirate the knee in the Emergency Department, so we could get fluid examination and cultures prior to instituting any antibiotics. PAST MEDICAL HISTORY: Significant for hypertension, hypercholesterolemia, arthritis, reflux disease, thyroid disease, overactive bladder. PAST SURGICAL HISTORY: Current knee replacement as described above as well as partial hysterectomy, shoulder replacement and multiple hernia surgeries. SOCIAL HISTORY: Denies smoking, alcohol or drug use. Currently at the rehab facility. ALLERGIES: SHE WAS ALLERGIC TO PREDNISONE AND SUCRALFATE. MEDICATIONS: List is reviewed. REVIEW OF SYSTEMS: She denies any fevers or chills. Just states that she does not feel well as of today. Denies any chest pain, shortness of breath, focal weakness, numbness, or tingling aside from the ongoing baseline weakness from her procedure where the quad is weak on the right side. PHYSICAL EXAMINATION: EXTREMITIES: On examination, she has significant swelling remaining in the thigh consistent with her previous examination. The area is mildly warm and is somewhat erythematous, particularly the superior aspect of the incisional area. The joint is stable to motion. Compartments are soft. Distal pulses, sensation are intact. LABORATORY DATA: Laboratory examination is pending of her knee joint aspirate and her aspirate is a turbid red synovial fluid with 102,000 red blood cells, 2100 nucleated cells with 98% PMNs. IMPRESSION: History of right knee arthroplasty with current wound drainage. TREATMENT PLAN: I went over with her the rationale for exploration of this area, washout with deep cultures to guide further treatment and a recommendation that we treat this aggressively if there is any possibility of infection given her history. All her questions were answered. She does wish to proceed with surgical evaluation and treatment, which is going to occur today just as soon as her n.p.o. status allows and the required equipment is available in the operating room, which is pending currently. YAQUELIN DR: Hiral TID: [id number]
[2020-08-27 22:45] VITALS: BP 94/43
[2020-08-27 23:00] VITALS: BP 106/47
[2020-08-27 23:15] VITALS: BP 96/45
[2020-08-27 23:30] VITALS: BP 93/40
[2020-08-28] VITALS (9 sets, daily range): BP systolic 86–141; BP diastolic 37–50
[2020-08-28 08:12] LABS: BASO % 0 % (0-3); EOS % 0 % (0-3); HEMATOCRIT 25.4 % (36.0-47.0); HEMOGLOBIN 8.6 g/dL (12.0-15.5); LYMPH % 17 % (24-48); MEAN CORPUSCULAR HEMOGLOBIN 33 pg (25-35); MEAN CORPUSCULAR HGB CONC 34 g/dL (31-37); MEAN CORPUSCULAR VOLUME 96 fL (79-100); MONO % 16 % (0-9); NEUT # 4.2 x10^3/uL (1.8-7.7); NEUT % 67 % (31-73); PLATELET COUNT 154 x10^3/uL (140-400); RED BLOOD COUNT 2.65 x10^6/uL (3.50-5.40); RED CELL DISTRIBUTION WIDTH 14.7 % (11.5-14.5); WHITE BLOOD COUNT 6.2 x10^3/uL (4.0-11.0)
[2020-08-28 08:17] LABS: CALCIUM 7.4 mg/dL (8.5-10.1); GFR 52.2; POTASSIUM 4.5 mmol/L (3.5-5.1)
--- NOTE | 2020-08-28 08:24 | PDOC4 ---
Operative Note Operative Note Date of surgery: 08/27/2020 Preoperative diagnosis: Right leg swelling and incisional drainage with history of distal femoral replacement and rotating-hinge knee arthroplasty for fracture Postoperative diagnosis: On gross observation, any involvement was superficial to the muscle fascia, knee joint was sealed and only had appearance of hematoma Operative procedure: Irrigation and debridement right knee with superficial and deep cultures and retention of hardware Surgeon: Flo Associate Professor Of Anthropology: Osmany batista assist Anesthesia: General Estimated blood loss: 200 cc mostly hematoma Complications: None Intraoperative cultures: Superficial tissue culture was sent from the tissue and fluid collection superficial to the intact muscle fascia, additional deep fluid hematoma from the joint was sent separately for cell count aerobic and anaerobic cultures Operative indications: Please see my dictated orthopedic consultation for detailed operative indications Operative text: Patient was identified procedure verified patient placed in the supine position on the operating table. After adequate amounts of general anesthesia were administered the leg was first observed and there were about 3 specific areas of incomplete healing proximally where she had some serosanguineous drainage present. The thigh was noted to have very significant swelling but I noted minimal redness around the incision itself. The right leg was then prepped and draped in the standard sterile fashion and a thigh tourniquet was placed. After timeout was performed patient procedure identified and verified the incision was opened and a mixture of some questionable tissue with hematoma and some cloudiness to the fluid. Prior to any irrigation, tissue samples were taken from along the fascia business services sales representative of suspicious appearing tissue and sent for intraoperative culture. Then a thorough debridement was carried out sharply and the subcutaneous layer of skin subcutaneous tissue and area superficial to the muscle fascia and irrigation carried out with bactisure and then with normal saline solution using pulse lavage. The joint envelope appeared well sealed and with no compromise. I had elected to aspirate business services sales representative fluid from the joint through this area that was irrigated and debrided to avoid introducing any potential infection into an otherwise sealed compartment. A return of hematoma was noted and this was separately sent off for deep culture as it was from the joint space itself. For completeness I then opened up the joint space along the path of the well-healed medial retinaculum split and no return of fluid at all was observed even with applying pressure on the area until the healed split was pierced with a scalpel. The retinaculum was then opened and further hematoma was noted there was no evidence of any purulence or devitalized tissue inside the joint space itself. Nevertheless after the hematoma was evacuated thorough irrigation carried out with normal saline solution followed by the remaining half liter of bactisure which was used all around the implant which was well fixated and stable. An additional 2 L of normal saline solution and pulse lavage were irrigated throughout the space and the retinaculum was closed with #1 PDS strata fix. Subcutaneous closure accomplished with 2-0 PDS suture and skin closure with nylon suture placed in a vertical mattress fashion to freddy skin edges. A wound VAC with a boundary layer of Adaptic was placed and obtained excellent suction and is intended to help evacuate any lymphatic fluid and prevent any hematoma from accumulating. Patient was returned to recovery room in stable condition having tolerated procedure well. Osmany batista assist was present for the procedure and assisted in patient positioning prepping draping retraction closure and dressings GURU TORRES MD Aug 28, 2020 08:24
--- NOTE | 2020-08-28 09:37 | PDOC ---
PROGRESS NOTES Date of Service: DATE: 08/28/20 TIME: 09:37 Chief Complaint Chief Complaint ASSESSMENT Right knee swelling and discharge and pain after 2 recent knee replacements. Ms. Hairston is a 89 old female periprosthetic distal femur fracture above well fixated right total knee arthroplasty with minimal bone available for distal fixation. JULY 2020 She had removal of components and placement of a distal femoral replacement with rotating hinge construct. FEVER T MAX 101.6F 08-27 SEPSIS PLAN ADMIT hold off on antibiotics until he takes the patient to surgery Postoperatively, she is going to need wound care, PT, OT and probably long term facility. ID CONSULT BLOOD CULTURES Operative procedure: Irrigation and debridement right knee with superficial and deep cultures and retention of hardware 08-28 618 hold off on antibiotics until he takes the patient to surgery Postoperatively, she is going to need wound care, PT, OT and probably long term facility. ID CONSULT BLOOD CULTURES Operative procedure: Irrigation and debridement right knee with superficial and deep cultures and retention of hardware 08-28 37 min pt exam, chart review, > 50% of time spent with exam, chart review, pt care coordination History of Present Illness History of Present Illness ADMIT DATE: 08/27/2020 CHIEF COMPLAINT: Right knee swelling, pain, discharge. HISTORY OF PRESENT ILLNESS: The patient is a pleasant 89-year-old female who underwent a right knee replacement with Dr. Rossi on 07/21 last month. She was doing relatively well, but then she fell and refractured the knee. I spoke with Dr. Rossi about the procedure. He had to go back in and put in a complex rotating hinge as she did not have much bone left above the previous knee replacement. Postoperatively, she was sent to [place] for rehabilitation. She was doing relatively well once again, but then started having some drainage. Dr. Rossi requested that she be put on a wound VAC. Apparently, the wound VAC situation was not helping much. Dr. Rossi states that it probably was not put on properly. Nevertheless, the patient came to our ER today with more drainage and some swelling and pain. Dr. Rossi called Dr. Cortes and had him do an arthrocentesis. The patient is now being examined on the medical floor, where she is getting ready to go to surgery here in a few minutes. PAST MEDICAL HISTORY: The above-mentioned complex knee replacement twice; arthritis; GERD; hyperlipidemia; hypertension; thyroid surgery; overactive bladder; partial hysterectomy, right; multiple hernia repairs. ALLERGIES: PREDNISONE AND CARAFATE. FAMILY HISTORY: Diabetes. SOCIAL HISTORY: She does not drink, smoke or take drugs. She is retired; has 3 children, one of her daughters is here, she seems to be a very good support for her. MEDICATIONS: Reviewed. Please refer to the MRAD. REVIEW OF SYSTEMS: GENERAL: No history of weight change, weakness or fevers. SKIN: No bruising, hair changes or rashes. EYES: No blurred, double or loss of vision. NOSE AND THROAT: No history of nosebleeds, hoarseness or sore throat. HEART: No history of palpitations, chest pain or shortness of breath on exertion. LUNGS: Denies cough, hemoptysis, wheezing or shortness of breath. GASTROINTESTINAL: Denies changes in appetite, nausea, vomiting, diarrhea or constipation. GENITOURINARY: No history of frequency, urgency, hesitancy or nocturia. NEUROLOGIC: Denies history of numbness, tingling, tremor or weakness. PSYCHIATRIC: No history of panic, anxiety or depression. ENDOCRINE: No history of heat or cold intolerance, polyuria or polydipsia. EXTREMITIES: She complains of right knee pain. Vitals Vitals Vital Signs Date Time Temp Pulse Resp B/P (MAP) Pulse Ox O2 Delivery O2 Flow Rate FiO2 08/28/20 07:00 98.7 72 18 119/47 (71) 95 Room Air 98.7 08/28/20 03:00 2.0 Physical Exam Physical Exam GENERAL: No apparent distress. Alert and oriented. HEENT: Normal cephalic atraumatic, external auditory canals are patent. EYES: Extraocular muscles are intact, pupils are equally round and reactive to light and accommodation. MUSCULOSKELETAL: Well developed, well nourished, good range of motion. ENDOCRINE: No thyromegaly was palpated. LYMPHATICS: No cervical chain or axillary nodes were noted. HEMATOPOIETIC: No bruising. NECK: Supple, no JVD, no thyromegaly was noted. LUNGS: Clear to auscultation in all lung thomas without rhonchi or wheezing. HEART: RRR, S1, S2 present. Peripheral pulses intact, no obvious murmurs were noted. ABDOMEN: Soft, nontender. Positive bowel sounds, no organomegaly, normal bowel sounds. EXTREMITIES: The right knee has clean, dry, intact dressing. NEUROLOGIC: Normal speech, normal tone. A and O x 3, moves all extremities, no obvious focal deficits. PSYCHIATRIC: Normal affect, normal mood. Stable. Rght lower extremity is erythematous and swollen from about the mid tibia to the mid femur. The erythematous region is warm to touch. The extremity is neurovascular intact with a palpable pulse and 2-second cap refill. Left lower extremity and upper extremities are neurovascularly intact with palpable pulse nontender with normal range of motion of joints. Unremarkable. Lungs: Clear Abdomen: Normal bowel sounds, Soft Extremities: No cyanosis Labs LABS PATIENT: YONIS HAIRSTON MACCOUNT: [id number] : 1930 LOCATION: ER AGE: 89 SEX: F EXAM STATUS: PRE ER ORD. PHYSICIAN: ANTONY MORRISON MD REASON: right knee pain after surgery PROCEDURE: KNEE RIGHT 3V EXAM: AP, lateral and oblique views of the right knee DATE: 08/27/2020 12:51 PM INDICATION: Reason: right knee pain after surgery / Spl. Instructions: / History: COMPARISON: 08/01/2020 FINDINGS: Changes of constrained longstem right total knee arthroplasty, in stable alignment without definite hardware competition or fracture. Small right knee joint effusion. Skin gautam are seen anteriorly. Soft tissue swelling about the right lower leg. IMPRESSION: Changes of constrained longstem right total knee arthroplasty, in stable alignment without definite hardware competition or fracture Electronically signed by: Arpit Munoz MD (08/27/2020 1:25 PM) [facility] DICTATED and SIGNED BY: ARPIT MUNOZ MD DATE: 08/27/20 [id number] ASPIRATION retrieved 10 mL of very dark-colored fluid earline brown to black, without any mimi pus. This seems like a combination of serous fluid and blood. I sense that there is quite a bit more fluid in the knee and perhaps fluid in the suprapatellar soft tissues. The fluid aspirated from the knee joint itself is not the same color as the superficial serous drainage. I suspect there is both an intra-articular hematoma and a subcutaneous seroma. Operative Note Operative Note Operative Note Date of surgery: 08/27/2020 Preoperative diagnosis: Right leg swelling and incisional drainage with history of distal femoral replacement and rotating-hinge knee arthroplasty for fracture Postoperative diagnosis: On gross observation, any involvement was superficial to the muscle fascia, knee joint was sealed and only had appearance of hematoma Operative procedure: Irrigation and debridement right knee with superficial and deep cultures and retention of hardware Surgeon: Flo Anesthesia: General Estimated blood loss: 200 cc mostly hematoma Complications: None Intraoperative cultures: Superficial tissue culture was sent from the tissue and fluid collection superficial to the intact muscle fascia, additional deep fluid hematoma from the joint was sent separately for cell count aerobic and anaerobic cultures Operative indications: Please see my dictated orthopedic consultation for detailed operative indications Laboratory Tests Test 08/27/20 13:17 08/27/20 14:30 08/27/20 16:00 08/27/20 16:55 White Blood Count 8.5 x10^3/uL (4.0-11.0) Red Blood Count 3.11 x10^6/uL (3.50-5.40) Hemoglobin 9.9 g/dL (12.0-15.5) Hematocrit 30.1 % (36.0-47.0) Mean Corpuscular Volume 97 fL (79-100) Mean Corpuscular Hemoglobin 32 pg (25-35) Mean Corpuscular Hemoglobin Concent 33 g/dL (31-37) Red Cell Distribution Width 15.1 % (11.5-14.5) Platelet Count 183 x10^3/uL (140-400) Neutrophils (%) (Auto) 76 % (31-73) Lymphocytes (%) (Auto) 12 % (24-48) Monocytes (%) (Auto) 11 % (0-9) Eosinophils (%) (Auto) 1 % (0-3) Basophils (%) (Auto) 0 % (0-3) Neutrophils # (Auto) 6.5 x10^3/uL (1.8-7.7) Lymphocytes # (Auto) 1.0 x10^3/uL (1.0-4.8) Monocytes # (Auto) 0.9 x10^3/uL (0.0-1.1) Eosinophils # (Auto) 0.0 x10^3/uL (0.0-0.7) Basophils # (Auto) 0.0 x10^3/uL (0.0-0.2) Segmented Neutrophils % 69 % (35-66) Band Neutrophils % 13 % (0-9) Lymphocytes % 10 % (24-48) Monocytes % 8 % (0-10) Platelet Estimate Adequate (ADEQUATE) Sodium Level 137 mmol/L (136-145) Potassium Level 4.0 mmol/L (3.5-5.1) Chloride Level 103 mmol/L (98-107) Carbon Dioxide Level 24 mmol/L (21-32) Anion Gap 10 (6-14) Blood Urea Nitrogen 22 mg/dL (7-20) Creatinine 1.2 mg/dL (0.6-1.0) Estimated GFR (Cockcroft-Gault) 42.3 BUN/Creatinine Ratio 18 (6-20) Glucose Level 165 mg/dL (70-99) Lactic Acid Level 2.7 mmol/L (0.4-2.0) 1.7 mmol/L (0.4-2.0) Calcium Level 8.3 mg/dL (8.5-10.1) Total Bilirubin 0.6 mg/dL (0.2-1.0) Aspartate Amino Transf (AST/SGOT) 24 U/L (15-37) Alanine Aminotransferase (ALT/SGPT) 25 U/L (14-59) Alkaline Phosphatase 128 U/L (46-116) Total Protein 5.5 g/dL (6.4-8.2) Albumin 2.7 g/dL (3.4-5.0) Albumin/Globulin Ratio 1.0 (1.0-1.7) Body Fluid Source Synovial Body Fluid Color Red Body Fluid Clarity Turbid Body Fluid Nucleated Cells 2100 /cmm (Not Established) Body Fluid Mononuclear WBCs (%) 2 % Body Fluid Polymorphonuclear Cells 98 % Body Fluid Total RBCs Counted 591846 /cmm (Not Body Fluid Other Cells (%) 0 % SARS-CoV-2 Antigen (Rapid) Negative (NEGATIVE) Test 08/28/20 06:40 White Blood Count 6.2 x10^3/uL (4.0-11.0) Red Blood Count 2.65 x10^6/uL (3.50-5.40) Hemoglobin 8.6 g/dL (12.0-15.5) Hematocrit 25.4 % (36.0-47.0) Mean Corpuscular Volume 96 fL (79-100) Mean Corpuscular Hemoglobin 33 pg (25-35) Mean Corpuscular Hemoglobin Concent 34 g/dL (31-37) Red Cell Distribution Width 14.7 % (11.5-14.5) Platelet Count 154 x10^3/uL (140-400) Neutrophils (%) (Auto) 67 % (31-73) Lymphocytes (%) (Auto) 17 % (24-48) Monocytes (%) (Auto) 16 % (0-9) Eosinophils (%) (Auto) 0 % (0-3) Basophils (%) (Auto) 0 % (0-3) Neutrophils # (Auto) 4.2 x10^3/uL (1.8-7.7) Lymphocytes # (Auto) 1.0 x10^3/uL (1.0-4.8) Monocytes # (Auto) 1.0 x10^3/uL (0.0-1.1) Eosinophils # (Auto) 0.0 x10^3/uL (0.0-0.7) Basophils # (Auto) 0.0 x10^3/uL (0.0-0.2) Sodium Level 142 mmol/L (136-145) Potassium Level 4.5 mmol/L (3.5-5.1) Chloride Level 109 mmol/L (98-107) Carbon Dioxide Level 27 mmol/L (21-32) Anion Gap 6 (6-14) Blood Urea Nitrogen 17 mg/dL (7-20) Creatinine 1.0 mg/dL (0.6-1.0) Estimated GFR (Cockcroft-Gault) 52.2 Glucose Level 98 mg/dL (70-99) Calcium Level 7.4 mg/dL (8.5-10.1) Assessment and Plan Assessmemt and Plan Problems Medical Problems: (1) Cellulitis Status: Acute Comment Review of Relevant I have reviewed the following items fiorella (where applicable) has been applied. Labs Laboratory Tests Test 08/27/20 13:17 08/27/20 14:30 08/27/20 16:00 08/27/20 16:55 White Blood Count 8.5 x10^3/uL (4.0-11.0) Red Blood Count 3.11 x10^6/uL (3.50-5.40) Hemoglobin 9.9 g/dL (12.0-15.5) Hematocrit 30.1 % (36.0-47.0) Mean Corpuscular Volume 97 fL (79-100) Mean Corpuscular Hemoglobin 32 pg (25-35) Mean Corpuscular Hemoglobin Concent 33 g/dL (31-37) Red Cell Distribution Width 15.1 % (11.5-14.5) Platelet Count 183 x10^3/uL (140-400) Neutrophils (%) (Auto) 76 % (31-73) Lymphocytes (%) (Auto) 12 % (24-48) Monocytes (%) (Auto) 11 % (0-9) Eosinophils (%) (Auto) 1 % (0-3) Basophils (%) (Auto) 0 % (0-3) Neutrophils # (Auto) 6.5 x10^3/uL (1.8-7.7) Lymphocytes # (Auto) 1.0 x10^3/uL (1.0-4.8) Monocytes # (Auto) 0.9 x10^3/uL (0.0-1.1) Eosinophils # (Auto) 0.0 x10^3/uL (0.0-0.7) Basophils # (Auto) 0.0 x10^3/uL (0.0-0.2) Segmented Neutrophils % 69 % (35-66) Band Neutrophils % 13 % (0-9) Lymphocytes % 10 % (24-48) Monocytes % 8 % (0-10) Platelet Estimate Adequate (ADEQUATE) Sodium Level 137 mmol/L (136-145) Potassium Level 4.0 mmol/L (3.5-5.1) Chloride Level 103 mmol/L (98-107) Carbon Dioxide Level 24 mmol/L (21-32) Anion Gap 10 (6-14) Blood Urea Nitrogen 22 mg/dL (7-20) Creatinine 1.2 mg/dL (0.6-1.0) Estimated GFR (Cockcroft-Gault) 42.3 BUN/Creatinine Ratio 18 (6-20) Glucose Level 165 mg/dL (70-99) Lactic Acid Level 2.7 mmol/L (0.4-2.0) 1.7 mmol/L (0.4-2.0) Calcium Level 8.3 mg/dL (8.5-10.1) Total Bilirubin 0.6 mg/dL (0.2-1.0) Aspartate Amino Transf (AST/SGOT) 24 U/L (15-37) Alanine Aminotransferase (ALT/SGPT) 25 U/L (14-59) Alkaline Phosphatase 128 U/L (46-116) Total Protein 5.5 g/dL (6.4-8.2) Albumin 2.7 g/dL (3.4-5.0) Albumin/Globulin Ratio 1.0 (1.0-1.7) Body Fluid Source Synovial Body Fluid Color Red Body Fluid Clarity Turbid Body Fluid Nucleated Cells 2100 /cmm (Not Established) Body Fluid Mononuclear WBCs (%) 2 % Body Fluid Polymorphonuclear Cells 98 % Body Fluid Total RBCs Counted 690784 /cmm (Not Body Fluid Other Cells (%) 0 % SARS-CoV-2 Antigen (Rapid) Negative (NEGATIVE) Test 08/28/20 06:40 White Blood Count 6.2 x10^3/uL (4.0-11.0) Red Blood Count 2.65 x10^6/uL (3.50-5.40) Hemoglobin 8.6 g/dL (12.0-15.5) Hematocrit 25.4 % (36.0-47.0) Mean Corpuscular Volume 96 fL (79-100) Mean Corpuscular Hemoglobin 33 pg (25-35) Mean Corpuscular Hemoglobin Concent 34 g/dL (31-37) Red Cell Distribution Width 14.7 % (11.5-14.5) Platelet Count 154 x10^3/uL (140-400) Neutrophils (%) (Auto) 67 % (31-73) Lymphocytes (%) (Auto) 17 % (24-48) Monocytes (%) (Auto) 16 % (0-9) Eosinophils (%) (Auto) 0 % (0-3) Basophils (%) (Auto) 0 % (0-3) Neutrophils # (Auto) 4.2 x10^3/uL (1.8-7.7) Lymphocytes # (Auto) 1.0 x10^3/uL (1.0-4.8) Monocytes # (Auto) 1.0 x10^3/uL (0.0-1.1) Eosinophils # (Auto) 0.0 x10^3/uL (0.0-0.7) Basophils # (Auto) 0.0 x10^3/uL (0.0-0.2) Sodium Level 142 mmol/L (136-145) Potassium Level 4.5 mmol/L (3.5-5.1) Chloride Level 109 mmol/L (98-107) Carbon Dioxide Level 27 mmol/L (21-32) Anion Gap 6 (6-14) Blood Urea Nitrogen 17 mg/dL (7-20) Creatinine 1.0 mg/dL (0.6-1.0) Estimated GFR (Cockcroft-Gault) 52.2 Glucose Level 98 mg/dL (70-99) Calcium Level 7.4 mg/dL (8.5-10.1) Laboratory Tests Test 08/27/20 13:17 08/27/20 14:30 08/27/20 16:00 08/27/20 16:55 White Blood Count 8.5 x10^3/uL (4.0-11.0) Red Blood Count 3.11 x10^6/uL (3.50-5.40) Hemoglobin 9.9 g/dL (12.0-15.5) Hematocrit 30.1 % (36.0-47.0) Mean Corpuscular Volume 97 fL (79-100) Mean Corpuscular Hemoglobin 32 pg (25-35) Mean Corpuscular Hemoglobin Concent 33 g/dL (31-37) Red Cell Distribution Width 15.1 % (11.5-14.5) Platelet Count 183 x10^3/uL (140-400) Neutrophils (%) (Auto) 76 % (31-73) Lymphocytes (%) (Auto) 12 % (24-48) Monocytes (%) (Auto) 11 % (0-9) Eosinophils (%) (Auto) 1 % (0-3) Basophils (%) (Auto) 0 % (0-3) Neutrophils # (Auto) 6.5 x10^3/uL (1.8-7.7) Lymphocytes # (Auto) 1.0 x10^3/uL (1.0-4.8) Monocytes # (Auto) 0.9 x10^3/uL (0.0-1.1) Eosinophils # (Auto) 0.0 x10^3/uL (0.0-0.7) Basophils # (Auto) 0.0 x10^3/uL (0.0-0.2) Segmented Neutrophils % 69 % (35-66) Band Neutrophils % 13 % (0-9) Lymphocytes % 10 % (24-48) Monocytes % 8 % (0-10) Platelet Estimate Adequate (ADEQUATE) Sodium Level 137 mmol/L (136-145) Potassium Level 4.0 mmol/L (3.5-5.1) Chloride Level 103 mmol/L (98-107) Carbon Dioxide Level 24 mmol/L (21-32) Anion Gap 10 (6-14) Blood Urea Nitrogen 22 mg/dL (7-20) Creatinine 1.2 mg/dL (0.6-1.0) Estimated GFR (Cockcroft-Gault) 42.3 BUN/Creatinine Ratio 18 (6-20) Glucose Level 165 mg/dL (70-99) Lactic Acid Level 2.7 mmol/L (0.4-2.0) 1.7 mmol/L (0.4-2.0) Calcium Level 8.3 mg/dL (8.5-10.1) Total Bilirubin 0.6 mg/dL (0.2-1.0) Aspartate Amino Transf (AST/SGOT) 24 U/L (15-37) Alanine Aminotransferase (ALT/SGPT) 25 U/L (14-59) Alkaline Phosphatase 128 U/L (46-116) Total Protein 5.5 g/dL (6.4-8.2) Albumin 2.7 g/dL (3.4-5.0) Albumin/Globulin Ratio 1.0 (1.0-1.7) Body Fluid Source Synovial Body Fluid Color Red Body Fluid Clarity Turbid Body Fluid Nucleated Cells 2100 /cmm (Not Established) Body Fluid Mononuclear WBCs (%) 2 % Body Fluid Polymorphonuclear Cells 98 % Body Fluid Total RBCs Counted 948257 /cmm (Not Body Fluid Other Cells (%) 0 % SARS-CoV-2 Antigen (Rapid) Negative (NEGATIVE) Test 08/28/20 06:40 White Blood Count 6.2 x10^3/uL (4.0-11.0) Red Blood Count 2.65 x10^6/uL (3.50-5.40) Hemoglobin 8.6 g/dL (12.0-15.5) Hematocrit 25.4 % (36.0-47.0) Mean Corpuscular Volume 96 fL (79-100) Mean Corpuscular Hemoglobin 33 pg (25-35) Mean Corpuscular Hemoglobin Concent 34 g/dL (31-37) Red Cell Distribution Width 14.7 % (11.5-14.5) Platelet Count 154 x10^3/uL (140-400) Neutrophils (%) (Auto) 67 % (31-73) Lymphocytes (%) (Auto) 17 % (24-48) Monocytes (%) (Auto) 16 % (0-9) Eosinophils (%) (Auto) 0 % (0-3) Basophils (%) (Auto) 0 % (0-3) Neutrophils # (Auto) 4.2 x10^3/uL (1.8-7.7) Lymphocytes # (Auto) 1.0 x10^3/uL (1.0-4.8) Monocytes # (Auto) 1.0 x10^3/uL (0.0-1.1) Eosinophils # (Auto) 0.0 x10^3/uL (0.0-0.7) Basophils # (Auto) 0.0 x10^3/uL (0.0-0.2) Sodium Level 142 mmol/L (136-145) Potassium Level 4.5 mmol/L (3.5-5.1) Chloride Level 109 mmol/L (98-107) Carbon Dioxide Level 27 mmol/L (21-32) Anion Gap 6 (6-14) Blood Urea Nitrogen 17 mg/dL (7-20) Creatinine 1.0 mg/dL (0.6-1.0) Estimated GFR (Cockcroft-Gault) 52.2 Glucose Level 98 mg/dL (70-99) Calcium Level 7.4 mg/dL (8.5-10.1) Medications Current Medications Vancomycin HCl 1 gm/Sodium Chloride 250 ml @ 166.667 mls/hr 1X ONCE IV ; Start 08/27/20 at 14:00; Stop 08/27/20 at 14:04; Status DC Vancomycin HCl 1.75 gm/Sodium Chloride 500 ml @ 250 mls/hr 1X ONCE IV Last administered on 08/27/20at 15:13; Start 08/27/20 at 14:30; Stop 08/27/20 at 16:29; Status DC Sodium Chloride 1,000 ml @ 1,000 mls/hr 1X ONCE IV Last administered on 08/27/20at 15:12; Start 08/27/20 at 14:15; Stop 08/27/20 at 15:14; Status DC Fentanyl Citrate (Fentanyl 2ml Vial) 25 mcg PRN Q5MIN PRN IVP MILD PAIN 1-3; Start 08/27/20 at 16:30; Stop 08/28/20 at 16:29 Fentanyl Citrate (Fentanyl 2ml Vial) 50 mcg PRN Q5MIN PRN IVP MODERATE PAIN 4-6 Last administered on 08/27/20at 21:50; Start 08/27/20 at 16:30; Stop 08/28/20 at 16:29 Morphine Sulfate (Morphine Sulfate) 1 mg PRN Q10MIN PRN IVP SEVERE PAIN 7-10 Last administered on 08/27/20at 22:13; Start 08/27/20 at 16:30; Stop 08/28/20 at 16:29 Ringer's Solution 1,000 ml @ 30 mls/hr Q24H IV ; Start 08/27/20 at 16:30; Stop 08/28/20 at 04:29; Status DC Hydromorphone HCl (Dilaudid) 0.5 mg PRN Q10MIN PRN IVP SEVERE PAIN 7-10, 2nd CHOICE Last administered on 08/27/20at 22:24; Start 08/27/20 at 16:30; Stop 08/28/20 at 16:29 Prochlorperazine Edisylate (Compazine) 5 mg PACU PRN PRN IVP NAUSEA, MRX1; Start 08/27/20 at 16:30; Stop 08/28/20 at 16:29 Propofol (Diprivan) 200 mg STK-MED ONCE IV ; Start 08/27/20 at 19:50; Stop 08/27/20 at 19:51; Status DC Lidocaine HCl (Lidocaine Pf 2% Vial) 5 ml STK-MED ONCE .ROUTE ; Start 08/27/20 at 19:50; Stop 08/27/20 at 19:51; Status DC Fentanyl Citrate (Fentanyl 2ml Vial) 100 mcg STK-MED ONCE .ROUTE ; Start 08/27/20 at 19:58; Stop 08/27/20 at 19:58; Status DC Ondansetron HCl (Zofran) 4 mg STK-MED ONCE .ROUTE ; Start 08/27/20 at 20:36; Stop 08/27/20 at 20:37; Status DC Dexamethasone Sodium Phosphate (Decadron) 4 mg STK-MED ONCE .ROUTE ; Start 08/27/20 at 20:36; Stop 08/27/20 at 20:37; Status DC Phenylephrine HCl (PHENYLEPHRINE in 0.9% NACL PF) 1 mg STK-MED ONCE IV ; Start 08/27/20 at 20:37; Stop 08/27/20 at 20:37; Status DC Sevoflurane (Ultane) 60 ml STK-MED ONCE IH ; Start 08/27/20 at 21:22; Stop 08/27/20 at 21:22; Status DC Fentanyl Citrate (Fentanyl 2ml Vial) 100 mcg STK-MED ONCE .ROUTE ; Start 08/27/20 at 21:45; Stop 08/27/20 at 21:45; Status DC Morphine Sulfate (Morphine Sulfate) 2 mg STK-MED ONCE .ROUTE ; Start 08/27/20 at 22:01; Stop 08/27/20 at 22:01; Status DC Hydromorphone HCl (Dilaudid) 2 mg STK-MED ONCE .ROUTE ; Start 08/27/20 at 22:21; Stop 08/27/20 at 22:21; Status DC Active Scripts Active Reported Acetaminophen 500 Mg Tablet 2 Tab PO PRN BID PRN 30 Days Tramadol Hcl 50 Mg Tablet 50 Mg PO Q4HRS PRN Melatonin 5 Mg Tab.rapdis 1 Tab PO QHS 30 Days Colace (Docusate Sodium) 100 Mg Capsule 1 Cap PO BID 30 Days Vesicare (Solifenacin Succinate) 10 Mg Tablet 1 Tab PO DAILY 30 Days Levothyroxine Sodium 88 Mcg Tablet 1 Tab PO DAILY Omeprazole 20 Mg Capsule.dr 1 Cap PO DAILY Vitamin D3 (Cholecalciferol (Vitamin D3)) 2,000 Unit Tablet 2,000 Unit PO DAILY Once Daily (Multivitamin) 1 Each Tablet 1 Each PO DAILY Simvastatin 20 Mg Tablet 20 Mg PO HS Vitals/I & O Vital Sign - Last 24 Hours 08/27/20 08/27/20 08/27/20 08/27/20 12:45 14:00 14:30 16:01 Temp 98.7 98.2 98.7 98.2 Pulse 91 54 88 67 Resp 12 16 B/P (MAP) 144/65 (91) 129/63 (85) 138/63 (88) 148/53 (84) Pulse Ox 99 95 96 O2 Delivery Room Air Room Air Room Air Room Air 08/27/20 08/27/20 08/27/20 08/27/20 17:52 18:17 21:24 21:39 Temp 102.1 101.6 101.6 102.1 101.6 101.6 Pulse 96 85 80 Resp 22 25 22 B/P (MAP) 122/50 145/50 151/66 Pulse Ox 94 100 100 O2 Delivery Room Air Room Air Simple Mask Simple Mask O2 Flow Rate 6 08/27/20 08/27/20 08/27/20 08/27/20 21:39 21:50 21:54 21:56 Temp 101.6 101.6 Pulse 84 Resp 24 24 24 B/P (MAP) 132/56 Pulse Ox 100 96 96 O2 Delivery Room Air Simple Mask Simple Mask Room Air O2 Flow Rate 6 6.0 08/27/20 08/27/20 08/27/20 08/27/20 22:03 22:09 22:13 22:24 Temp 101.6 100.6 101.6 100.6 Pulse 84 86 Resp 24 20 20 21 B/P (MAP) 125/54 94/43 Pulse Ox 96 97 97 93 O2 Delivery Room Air Room Air Room Air Room Air 08/27/20 08/27/20 08/27/20 08/27/20 22:24 22:32 22:45 22:45 Temp 100.6 98.9 100.6 98.9 Pulse 84 86 Resp 20 16 B/P (MAP) 101/45 94/43 (60) Pulse Ox 95 95 96 O2 Delivery Room Air Room Air Nasal Cannula Nasal Cannula O2 Flow Rate 2.0 2.0 08/27/20 08/27/20 08/27/20 08/28/20 23:00 23:15 23:30 00:00 Pulse 86 84 84 83 B/P (MAP) 106/47 (66) 96/45 (62) 93/40 (57) 100/42 (61) Pulse Ox 93 95 95 90 O2 Delivery Nasal Cannula Nasal Cannula Nasal Cannula Nasal Cannula O2 Flow Rate 2.0 2.0 2.0 2.0 08/28/20 08/28/20 08/28/20 08/28/20 01:00 02:00 03:00 07:00 Temp 98.5 98.7 98.5 98.7 Pulse 83 81 74 72 Resp 18 B/P (MAP) 86/37 (53) 93/42 (59) 95/43 (60) 119/47 (71) Pulse Ox 92 92 99 95 O2 Delivery Nasal Cannula Nasal Cannula Nasal Cannula Room Air O2 Flow Rate 2.0 2.0 2.0 Intake and Output 08/27/20 08/27/20 08/28/20 15:00 23:00 07:00 Intake Total 2050 ml 120 ml Output Total 100 ml Balance 1950 ml 120 ml Justicifation of Admission Dx: Justifications for Admission: Justification of Admission Dx: N/A SUNSHINE GALEAS MD Aug 28, 2020 09:37
--- NOTE | 2020-08-28 10:14 | NUR ---
SW following. Discussed with RN, pt came from [facility], 2L, NPO, rapid COVID-19 negative. Pt had an I&D yesterday. RN checking pt limitations for therapy. SW will continue to follow.
[2020-08-28] MEDS: IV NORMAL SALINE 1000ML BAG 1,000 ML IV SCH (10:36)
[2020-08-28] MEDS: PIPERACILLIN/TAZOBACTAM 3.375 GM in IV NORMAL SALINE 50ML 50 ML IV SCH ×2 (12:35→18:06)
[2020-08-28] MEDS: DAPTOmycin (GENERIC) IVPB 410 MG in IV NORMAL SALINE 50ML 50 ML IV SCH (13:27)
[2020-08-28] MEDS: traMADol 50 MG TABLET PO PRN (15:01)
--- NOTE | 2020-08-28 15:17 | NUR ---
Wound Care Wound vac in place in right knee surgical incision with contact layer and silver foam, no drainage noted in canister, good seal in place.
--- NOTE | 2020-08-28 17:00 | CONS ---
REFERRING PHYSICIAN: Derrell Rossi MD. REASON FOR CONSULTATION: Antibiotic management for right knee infection. HISTORY OF PRESENT ILLNESS: An 89-year-old female who underwent right BKA on 07/21. She was discharged home and was doing PT. She did well with the PT session. Subsequent to that, the patient was walking when her right knee gave out and the patient collapsed to the ground and twisted her right knee. The patient was unable to bear weight on the right lower extremity with worsening swelling of the right knee. On 08/01, she underwent removal of the components and placement of distal femoral replacement with rotating hinge construct due to periprosthetic distal femur fracture above well-fixed right total knee arthroplasty. The patient was discharged to [facility] facility on 08/04/2020. The patient returned to the ER on 08/27/2020 after developing erythema of the right leg with fever, which started 4-5 days ago. Exam from Orthopedics reveal serous drainage present from several areas of staple incision, moderate knee effusion, mild cellulitis, moderate thigh and knee swelling. X-ray revealed extensive revision right TKA with distal femoral replacement. The patient underwent synovial aspirate, which showed 10 mL of very dark colored fluid earline brown to black without mimi pus. It appeared that the patient had some blood stained serous drainage. The synovial aspirate did not see the same color as the superficial serous drainage, so there was initial diagnosis of intraarticular hematoma and a subcutaneous seroma. Synovial fluid aspirate showed WBC of 2100 with 98% PMNs and RBC of 102,000. The patient underwent right knee surgery. Per discussion with Dr. Rossi, it appeared that the patient had a superficial infection. He also opened up the joint and did thorough cleaning. He sutured it back and intra-articular tissue and superficial tissue fluid were sent for cultures, which are pending at this time. The patient received a dose of vancomycin once ID consultation has been requested for antibiotic management. The patient remains afebrile this morning. T-max was 102. The patient is currently on room air. Postop pain is under control. She denies any fevers, chills, night sweats, nausea, vomiting, diarrhea, abdominal pain, symptoms. PAST MEDICAL HISTORY: Left knee replacement, right shoulder surgery, multiple hernias repair, colon cancer, status post ileostomy, GERD, hypertension, hyperlipidemia, thyroid surgery, overactive bladder, DJD, partial hysterectomy. ALLERGIES: PREDNISONE, CARAFATE. FAMILY HISTORY: Positive for diabetes. SOCIAL HISTORY: Denies smoking, ETOH, or illicit drug use. Retired. CURRENT MEDICATIONS: IV vancomycin, 08/27/2020. REVIEW OF SYSTEMS: Negative except for above in HPI. PHYSICAL EXAMINATION: VITAL SIGNS: Temperature 98.7, T-max 102, pulse 72, respiratory rate 18, blood pressure 119/47, oxygen saturation 95% on room air. GENERAL: Alert, oriented x 3, pleasant female, lying in bed comfortably, in no acute distress. HEENT: Normocephalic, atraumatic. Anicteric. NECK: Supple. No JVD. LUNGS: Clear bilaterally. No wheezing. HEART: S1, S2. No gallops or murmurs. ABDOMEN: Soft, obese, nontender, nondistended. EXTREMITIES: Right lower extremity swelling present. Wound VAC in place. Minimal warmth. No surrounding erythema noted. NEUROLOGIC: Alert, oriented x 3, grossly nonfocal. PSYCHIATRIC: Calm and cooperative. DERMATOLOGIC: Warm, dry, no generalized rash. PIV looks clean. LABORATORY DATA: WBC 6.2, hemoglobin 8.6, hematocrit 25.4, platelets 154. Sodium 142, potassium 4.5, chloride 109, bicarbonate 27, BUN 17, creatinine 1.0, glucose 98. Lactate was 2.7, repeat is 1.7, calcium is 7.4. Synovial fluid: WBC 2100, PMNs 98%, total RBC 102,000. SIRS-COVID negative. Micro on 08/27/2020, intraoperative tissue and fluid cultures pending. Synovial culture is not available. IMAGING: Right knee x-ray on 08/27/2020, changes of constraint long-stem right total knee arthroplasty and stable alignment without definite hardware ____ or fracture. Small right knee effusion. Skin gautam are seen anteriorly. Soft tissue swelling around the right lower leg. IMPRESSION: 1. Fever. 2. Right knee postop site drainage,hematoma with infection Status post synovial aspirate on 08/27/2020, WBC 2100, RBC 102,000, 98%PMNs. S/P I and D Cultures pending 3. Right knee periprosthetic joint infection. S/P Irrigation and debridement right knee with superficial and deep cultures and retention of hardware Jt Fluid cultures done per DR Rossi Cultures pending 4. 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 5. Supracondylar fracture just above the knee joint 6. Status post removal of the components and placement of distal femoral replacement with a rotating hinge construct for periprosthetic distal femur fracture above well-fixated right total knee arthroplasty, 08/01/2020. 7. 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 8. Lactic acidosis. 9. Bandemia. 10. DJD 11. Hypertension/hyperlipidemia. 12. History of chronic kidney disease. RECOMMENDATIONS: 1. Start daptomycin and Zosyn. 2. I would like to avoid IV vancomycin due to BERHANE. 3. Follow up labs and cultures. 4. Wound /VAC care as directed by Orthopedics. 5. PT and OT as directed by Orthopedics. 6. Monitor labs and cultures. 7. Continue supportive care. Thank you for allowing me to participate in this patient's care. If you have any questions, do not hesitate to contact me. [facility] [place] Yusra TID: [id number] MTDD
[2020-08-28] MEDS ORDERED: NON FORMULARY ITEM (Melatonin 1 TAB) PO SCH (21:00)
[2020-08-28] MEDS: SIMVASTATIN 20 MG TABLET PO SCH (21:32)
[2020-08-28] MEDS: OXYBUTYNIN CHLORIDE 5 MG TABLET PO SCH (21:32)
[2020-08-28] MEDS: DOCUSATE SODIUM 100 MG CAPSULE. PO SCH (21:32)
[2020-08-29] MEDS: PIPERACILLIN/TAZOBACTAM 3.375 GM in IV NORMAL SALINE 50ML 50 ML IV SCH ×5 (00:24→23:42)
[2020-08-29] MEDS: IV NORMAL SALINE 1000ML BAG 1,000 ML IV SCH ×2 (01:55→12:25)
[2020-08-29 03:08] VITALS: BP 140/59
[2020-08-29] MEDS: LEVOTHYROXINE 88 MCG TABLET PO SCH (06:43)
[2020-08-29] MEDS: OXYBUTYNIN CHLORIDE 5 MG TABLET PO SCH ×3 (06:43→21:16)
[2020-08-29 07:00] VITALS: BP 134/54
[2020-08-29 07:16] LABS: BASO % 1 % (0-3); EOS # 0.1 x10^3/uL (0.0-0.7); EOS % 2 % (0-3); HEMATOCRIT 26.6 % (36.0-47.0); HEMOGLOBIN 8.7 g/dL (12.0-15.5); LYMPH % 21 % (24-48); MEAN CORPUSCULAR HEMOGLOBIN 32 pg (25-35); MEAN CORPUSCULAR HGB CONC 33 g/dL (31-37); MEAN CORPUSCULAR VOLUME 97 fL (79-100); MONO # 0.8 x10^3/uL (0.0-1.1); MONO % 17 % (0-9); NEUT # 2.8 x10^3/uL (1.8-7.7); NEUT % 59 % (31-73); PLATELET COUNT 174 x10^3/uL (140-400); RED BLOOD COUNT 2.75 x10^6/uL (3.50-5.40); RED CELL DISTRIBUTION WIDTH 14.9 % (11.5-14.5); WHITE BLOOD COUNT 4.7 x10^3/uL (4.0-11.0)
[2020-08-29 07:48] LABS: ALBUMIN 1.8 g/dL (3.4-5.0); ALBUMIN/GLOBULIN RATIO 0.6 (1.0-1.7); CALCIUM 7.4 mg/dL (8.5-10.1); CREATININE 0.9 mg/dL (0.6-1.0); POTASSIUM 4.1 mmol/L (3.5-5.1); TOTAL BILIRUBIN 0.4 mg/dL (0.2-1.0); TOTAL PROTEIN 4.9 g/dL (6.4-8.2)
[2020-08-29] MEDS: PANTOPRAZOLE 40 MG TABLET.DR. PO SCH (08:37)
[2020-08-29] MEDS: CHOLECALCIFEROL (VITAMIN D3) 1,000 UNIT TABLET PO SCH (08:37)
[2020-08-29] MEDS: MULTIVITAMIN with MINERAL TABLET. PO SCH (08:37)
[2020-08-29] MEDS: DOCUSATE SODIUM 100 MG CAPSULE. PO SCH ×2 (08:37→21:16)
--- NOTE | 2020-08-29 08:54 | PDOC ---
PROGRESS NOTES Date of Service DATE: 08/29/20 TIME: 08:49 Subjective Subjective Problems overnight: Right leg feels okay, pain controlled, no other complaints Objective Vital Signs Vital Signs Date Time Temp Pulse Resp B/P (MAP) Pulse Ox O2 Delivery O2 Flow Rate FiO2 08/29/20 07:58 Room Air 08/29/20 07:00 98.6 73 18 134/54 (80) 95 98.6 08/28/20 03:00 2.0 Physical Exam Wound VAC intact, distal neurovascular status intact, knee stable, minimal swelling compared to previous in right thigh Labs Laboratory Tests Test 08/27/20 13:17 08/27/20 14:30 08/27/20 16:00 08/27/20 16:55 White Blood Count 8.5 x10^3/uL (4.0-11.0) Red Blood Count 3.11 x10^6/uL (3.50-5.40) Hemoglobin 9.9 g/dL (12.0-15.5) Hematocrit 30.1 % (36.0-47.0) Mean Corpuscular Volume 97 fL (79-100) Mean Corpuscular Hemoglobin 32 pg (25-35) Mean Corpuscular Hemoglobin Concent 33 g/dL (31-37) Red Cell Distribution Width 15.1 % (11.5-14.5) Platelet Count 183 x10^3/uL (140-400) Neutrophils (%) (Auto) 76 % (31-73) Lymphocytes (%) (Auto) 12 % (24-48) Monocytes (%) (Auto) 11 % (0-9) Eosinophils (%) (Auto) 1 % (0-3) Basophils (%) (Auto) 0 % (0-3) Neutrophils # (Auto) 6.5 x10^3/uL (1.8-7.7) Lymphocytes # (Auto) 1.0 x10^3/uL (1.0-4.8) Monocytes # (Auto) 0.9 x10^3/uL (0.0-1.1) Eosinophils # (Auto) 0.0 x10^3/uL (0.0-0.7) Basophils # (Auto) 0.0 x10^3/uL (0.0-0.2) Segmented Neutrophils % 69 % (35-66) Band Neutrophils % 13 % (0-9) Lymphocytes % 10 % (24-48) Monocytes % 8 % (0-10) Platelet Estimate Adequate (ADEQUATE) Sodium Level 137 mmol/L (136-145) Potassium Level 4.0 mmol/L (3.5-5.1) Chloride Level 103 mmol/L (98-107) Carbon Dioxide Level 24 mmol/L (21-32) Anion Gap 10 (6-14) Blood Urea Nitrogen 22 mg/dL (7-20) Creatinine 1.2 mg/dL (0.6-1.0) Estimated GFR (Cockcroft-Gault) 42.3 BUN/Creatinine Ratio 18 (6-20) Glucose Level 165 mg/dL (70-99) Lactic Acid Level 2.7 mmol/L (0.4-2.0) 1.7 mmol/L (0.4-2.0) Calcium Level 8.3 mg/dL (8.5-10.1) Total Bilirubin 0.6 mg/dL (0.2-1.0) Aspartate Amino Transf (AST/SGOT) 24 U/L (15-37) Alanine Aminotransferase (ALT/SGPT) 25 U/L (14-59) Alkaline Phosphatase 128 U/L (46-116) Total Protein 5.5 g/dL (6.4-8.2) Albumin 2.7 g/dL (3.4-5.0) Albumin/Globulin Ratio 1.0 (1.0-1.7) Body Fluid Source Synovial Body Fluid Color Red Body Fluid Clarity Turbid Body Fluid Nucleated Cells 2100 /cmm (Not Established) Body Fluid Mononuclear WBCs (%) 2 % Body Fluid Polymorphonuclear Cells 98 % Body Fluid Total RBCs Counted 066489 /cmm (Not Body Fluid Other Cells (%) 0 % SARS-CoV-2 Antigen (Rapid) Negative (NEGATIVE) Test 08/28/20 06:40 08/28/20 11:55 08/29/20 06:30 White Blood Count 6.2 x10^3/uL (4.0-11.0) 4.7 x10^3/uL (4.0-11.0) Red Blood Count 2.65 x10^6/uL (3.50-5.40) 2.75 x10^6/uL (3.50-5.40) Hemoglobin 8.6 g/dL (12.0-15.5) 8.7 g/dL (12.0-15.5) Hematocrit 25.4 % (36.0-47.0) 26.6 % (36.0-47.0) Mean Corpuscular Volume 96 fL (79-100) 97 fL (79-100) Mean Corpuscular Hemoglobin 33 pg (25-35) 32 pg (25-35) Mean Corpuscular Hemoglobin Concent 34 g/dL (31-37) 33 g/dL (31-37) Red Cell Distribution Width 14.7 % (11.5-14.5) 14.9 % (11.5-14.5) Platelet Count 154 x10^3/uL (140-400) 174 x10^3/uL (140-400) Neutrophils (%) (Auto) 67 % (31-73) 59 % (31-73) Lymphocytes (%) (Auto) 17 % (24-48) 21 % (24-48) Monocytes (%) (Auto) 16 % (0-9) 17 % (0-9) Eosinophils (%) (Auto) 0 % (0-3) 2 % (0-3) Basophils (%) (Auto) 0 % (0-3) 1 % (0-3) Neutrophils # (Auto) 4.2 x10^3/uL (1.8-7.7) 2.8 x10^3/uL (1.8-7.7) Lymphocytes # (Auto) 1.0 x10^3/uL (1.0-4.8) 1.0 x10^3/uL (1.0-4.8) Monocytes # (Auto) 1.0 x10^3/uL (0.0-1.1) 0.8 x10^3/uL (0.0-1.1) Eosinophils # (Auto) 0.0 x10^3/uL (0.0-0.7) 0.1 x10^3/uL (0.0-0.7) Basophils # (Auto) 0.0 x10^3/uL (0.0-0.2) 0.0 x10^3/uL (0.0-0.2) Sodium Level 142 mmol/L (136-145) 143 mmol/L (136-145) Potassium Level 4.5 mmol/L (3.5-5.1) 4.1 mmol/L (3.5-5.1) Chloride Level 109 mmol/L (98-107) 109 mmol/L (98-107) Carbon Dioxide Level 27 mmol/L (21-32) 26 mmol/L (21-32) Anion Gap 6 (6-14) 8 (6-14) Blood Urea Nitrogen 17 mg/dL (7-20) 13 mg/dL (7-20) Creatinine 1.0 mg/dL (0.6-1.0) 0.9 mg/dL (0.6-1.0) Estimated GFR (Cockcroft-Gault) 52.2 59.0 Glucose Level 98 mg/dL (70-99) 85 mg/dL (70-99) Calcium Level 7.4 mg/dL (8.5-10.1) 7.4 mg/dL (8.5-10.1) C-Reactive Protein, Quantitative 210.6 mg/L (0-3.3) Erythrocyte Sedimentation Rate 26 (0-25) BUN/Creatinine Ratio 14 (6-20) Total Bilirubin 0.4 mg/dL (0.2-1.0) Aspartate Amino Transf (AST/SGOT) 10 U/L (15-37) Alanine Aminotransferase (ALT/SGPT) 13 U/L (14-59) Alkaline Phosphatase 101 U/L (46-116) Creatine Kinase 7 U/L (26-192) Total Protein 4.9 g/dL (6.4-8.2) Albumin 1.8 g/dL (3.4-5.0) Albumin/Globulin Ratio 0.6 (1.0-1.7) Laboratory Tests Test 08/28/20 11:55 08/29/20 06:30 Erythrocyte Sedimentation Rate 26 (0-25) White Blood Count 4.7 x10^3/uL (4.0-11.0) Red Blood Count 2.75 x10^6/uL (3.50-5.40) Hemoglobin 8.7 g/dL (12.0-15.5) Hematocrit 26.6 % (36.0-47.0) Mean Corpuscular Volume 97 fL (79-100) Mean Corpuscular Hemoglobin 32 pg (25-35) Mean Corpuscular Hemoglobin Concent 33 g/dL (31-37) Red Cell Distribution Width 14.9 % (11.5-14.5) Platelet Count 174 x10^3/uL (140-400) Neutrophils (%) (Auto) 59 % (31-73) Lymphocytes (%) (Auto) 21 % (24-48) Monocytes (%) (Auto) 17 % (0-9) Eosinophils (%) (Auto) 2 % (0-3) Basophils (%) (Auto) 1 % (0-3) Neutrophils # (Auto) 2.8 x10^3/uL (1.8-7.7) Lymphocytes # (Auto) 1.0 x10^3/uL (1.0-4.8) Monocytes # (Auto) 0.8 x10^3/uL (0.0-1.1) Eosinophils # (Auto) 0.1 x10^3/uL (0.0-0.7) Basophils # (Auto) 0.0 x10^3/uL (0.0-0.2) Sodium Level 143 mmol/L (136-145) Potassium Level 4.1 mmol/L (3.5-5.1) Chloride Level 109 mmol/L (98-107) Carbon Dioxide Level 26 mmol/L (21-32) Anion Gap 8 (6-14) Blood Urea Nitrogen 13 mg/dL (7-20) Creatinine 0.9 mg/dL (0.6-1.0) Estimated GFR (Cockcroft-Gault) 59.0 BUN/Creatinine Ratio 14 (6-20) Glucose Level 85 mg/dL (70-99) Calcium Level 7.4 mg/dL (8.5-10.1) Total Bilirubin 0.4 mg/dL (0.2-1.0) Aspartate Amino Transf (AST/SGOT) 10 U/L (15-37) Alanine Aminotransferase (ALT/SGPT) 13 U/L (14-59) Alkaline Phosphatase 101 U/L (46-116) Creatine Kinase 7 U/L (26-192) Total Protein 4.9 g/dL (6.4-8.2) Albumin 1.8 g/dL (3.4-5.0) Albumin/Globulin Ratio 0.6 (1.0-1.7) Assessment Assessment POD#2 irrigation debridement of right knee Plan Plan of Care Appreciate ID consult: Cultures pending, synovial WBC 2100, clinically was hematoma with very high red cell count, no communication was observed between the thigh collection which was sent for separate cultures, and the intra- articular portion which was clinically hematoma and sent for separate cultures. Continue empiric antibiotics in the interim Weightbearing as tolerated with physical therapy assistance as well as any strengthening leg lifts or other functional exercises Spoke with case management about potential rehab placement in [facility] to be closer to the patient's daughters, reportedly in progress Justicifation of Admission Dx: Justifications for Admission: Justification of Admission Dx: N/A GURU TORRES MD Aug 29, 2020 08:54
--- NOTE | 2020-08-29 09:21 | PDOC ---
Infectious Disease Note Subjective: Subjective Patient's postop site pain is under control Denies fever, nausea, vomiting, shortness of breath, diarrhea, abdominal pain, rash Otherwise as above Vital Signs: Vital Signs Vital Signs Date Time Temp Pulse Resp B/P (MAP) Pulse Ox O2 Delivery O2 Flow Rate FiO2 08/29/20 07:58 Room Air 08/29/20 07:00 98.6 73 18 134/54 (80) 95 98.6 Physical Exam: PHYSICAL EXAM GENERAL: Alert, oriented x 3, pleasant female, lying in bed comfortably, in no acute distress. HEENT: Normocephalic, atraumatic. Anicteric. NECK: Supple. No JVD. LUNGS: Clear bilaterally. No wheezing. HEART: S1, S2. No gallops or murmurs. ABDOMEN: Soft, obese, nontender, nondistended. EXTREMITIES: Right lower extremity swelling present. Wound VAC in place. Minimal warmth. No surrounding erythema noted. NEUROLOGIC: Alert, oriented x 3, grossly nonfocal. PSYCHIATRIC: Calm and cooperative. DERMATOLOGIC: Warm, dry, no generalized rash. PIV looks clean. Medications: Inpatient Meds: Medications reviewed. Labs: Lab Laboratory Tests Test 08/28/20 11:55 08/29/20 06:30 Erythrocyte Sedimentation Rate 26 (0-25) White Blood Count 4.7 x10^3/uL (4.0-11.0) Red Blood Count 2.75 x10^6/uL (3.50-5.40) Hemoglobin 8.7 g/dL (12.0-15.5) Hematocrit 26.6 % (36.0-47.0) Mean Corpuscular Volume 97 fL (79-100) Mean Corpuscular Hemoglobin 32 pg (25-35) Mean Corpuscular Hemoglobin Concent 33 g/dL (31-37) Red Cell Distribution Width 14.9 % (11.5-14.5) Platelet Count 174 x10^3/uL (140-400) Neutrophils (%) (Auto) 59 % (31-73) Lymphocytes (%) (Auto) 21 % (24-48) Monocytes (%) (Auto) 17 % (0-9) Eosinophils (%) (Auto) 2 % (0-3) Basophils (%) (Auto) 1 % (0-3) Neutrophils # (Auto) 2.8 x10^3/uL (1.8-7.7) Lymphocytes # (Auto) 1.0 x10^3/uL (1.0-4.8) Monocytes # (Auto) 0.8 x10^3/uL (0.0-1.1) Eosinophils # (Auto) 0.1 x10^3/uL (0.0-0.7) Basophils # (Auto) 0.0 x10^3/uL (0.0-0.2) Sodium Level 143 mmol/L (136-145) Potassium Level 4.1 mmol/L (3.5-5.1) Chloride Level 109 mmol/L (98-107) Carbon Dioxide Level 26 mmol/L (21-32) Anion Gap 8 (6-14) Blood Urea Nitrogen 13 mg/dL (7-20) Creatinine 0.9 mg/dL (0.6-1.0) Estimated GFR (Cockcroft-Gault) 59.0 BUN/Creatinine Ratio 14 (6-20) Glucose Level 85 mg/dL (70-99) Calcium Level 7.4 mg/dL (8.5-10.1) Total Bilirubin 0.4 mg/dL (0.2-1.0) Aspartate Amino Transf (AST/SGOT) 10 U/L (15-37) Alanine Aminotransferase (ALT/SGPT) 13 U/L (14-59) Alkaline Phosphatase 101 U/L (46-116) Creatine Kinase 7 U/L (26-192) Total Protein 4.9 g/dL (6.4-8.2) Albumin 1.8 g/dL (3.4-5.0) Albumin/Globulin Ratio 0.6 (1.0-1.7) Micro RUN DATE: 08/28/20 [facility] *LIVE* PAGE 1 RUN TIME: 1207 Specimen Inquiry PATIENT: YONIS HAIRSTON ACCT: [id number] LOC: [address] [place] [address] U: [id number] AGE/SX: 89/F ROOM: 404 RE08/27/[address]: JUDIE HUBBARD III, DO : 1930 BED: 1 DIS: STATUS: ADM IN TLOC: SPEC #: [id number] OFE: 08/27/20 STATUS: RES REQ #: [id number] RECD: 08/27/[address] [facility] [address]: BARBARA ARREDONDO MD SOURCE: [facility] ENTR: 08/27/20 [facility] DR: JUDIE HUBBARD III, DO SPDESC: BEVERLY SPENCER MD ORDERED: SHAHEEN/CHAI/KARI COMMENTS: Specimen Description: right knee Has specimen been collected/obtained? Y Procedure Result GRAM STAIN Final Final GRAM POS COCCI CLUSTERS:RARE RBC:MANY SQUAMOUS EPI CELL:NOT APPLICABLE PMN (WBCs):FEW Unless otherwise specified, Testing Performed by: [address] [address] For Inquires, the Physician may contact the Microbiology department at [phone] ANAEROBIC-AEROBIC CULTURE PENDING --- --------- RUN DATE: 08/28/20 [facility] *LIVE* PAGE 1 RUN TIME: 1203 Specimen Inquiry PATIENT: LEO HAIRSTONAPRIL Escamilla ACCT: [id number] LOC: [address] [place] [address] U: [id number] AGE/SX: 89/F ROOM: 404 RE08/27/[address]: JUDIE HUBBARD III DO : 1930 BED: 1 DIS: STATUS: ADM IN TLOC: SPEC #: [id number] OFE: 08/27/20 STATUS: RES REQ #: [id number] RECD: 08/28/[address] [facility] [address]: JUDIE HUBBARD III, DO SOURCE: [facility] ENTR: 08/28/[address]: YAN RIOS MD SPDESC: WOUND PULS,BEVERLY De Jesus MD ORDERED: ANAER/AEROB/GS COMMENTS: R LEG SUBCUTANEOUS Procedure Result GRAM STAIN Final Final GRAM POS COCCI CLUSTERS:MODERATE RBC:MODERATE SQUAMOUS EPI CELL:RARE PMN (WBCs):MANY Unless otherwise specified, Testing Performed by: [address] [address] For Inquires, the Physician may contact the Microbiology department at [phone] ANAEROBIC-AEROBIC CULTURE PENDING RUN DATE: 08/28/20 [facility] *LIVE* PAGE 1 RUN TIME: 1201 Specimen Inquiry PATIENT: YONIS HAIRSTON ACCT: [id number] LOC: [address] [place] [address] U: [id number] AGE/SX: 89/F ROOM: 404 RE08/27/[address]: JUDIE HUBBARD III, DO : 1930 BED: 1 DIS: STATUS: ADM IN TLOC: SPEC #: [id number] OFE: 08/27/20-2019 STATUS: RES REQ #: [id number] RECD: 08/28/[address]: JUDIE HUBBARD III, DO SOURCE: [facility] ENTR: 08/28/20 [facility] DR: YAN RIOS MD [facility]: JOHANNA,BEVERLY De Jesus MD ORDERED: ANAER/CHAI/GS COMMENTS: R KNEE JOINT FLUID Procedure Result GRAM STAIN Final Final GRAM POS COCCI CLUSTERS:MODERATE RBC:MANY SQUAMOUS EPI CELL:NOT APPLICABLE PMN (WBCs):MANY Unless otherwise specified, Testing Performed by: [place] [address] For Inquires, the Physician may contact the Microbiology department at [phone] ANAEROBIC-AEROBIC CULTURE PENDING Objective: Assessment: 1. Fever. 2. Right knee postop site drainage,hematoma with infection Status post synovial aspirate on 08/27/2020, WBC 2100, RBC 102,000, 98%PMNs. Cult GPC in clusters 3. Right knee periprosthetic joint infection. S/P Irrigation and debridement right knee with superficial and deep cultures and retention of hardware Jt Fluid cultures done per DR Rossi + GPCS in clusters Subcut tissue cult positive for GPCS in clusters 4. 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 5. Supracondylar fracture just above the knee joint 6. Status post removal of the components and placement of distal femoral replacement with a rotating hinge construct for periprosthetic distal femur fracture above well-fixated right total knee arthroplasty, 08/01/2020. 7. 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 8. Degenerative joint disease. 9. Bandemia. 10. Lactic acidosis. 11. Hypertension/hyperlipidemia. 12. History of chronic kidney disease. Plan: Plan of Care 1. Cont daptomycin and Zosyn. 2. Avoid IV vancomycin due to BERHANE . 3. Follow up labs and cultures. 4. Wound /VAC care as directed by Orthopedics. 5. PT and OT as directed by Orthopedics. 6. Monitor labs and cultures. 7. Continue supportive care. INES RIOS MD Aug 29, 2020 09:21
[2020-08-29 11:00] VITALS: BP 125/46
--- NOTE | 2020-08-29 11:19 | PDOC ---
PROGRESS NOTES Date of Service: DATE: 08/29/20 TIME: 11:19 Chief Complaint Chief Complaint ASSESSMENT Right knee swelling and discharge and pain after 2 recent knee replacements. Ms. Mortensen is a 89 old female periprosthetic distal femur fracture above well fixated right total knee arthroplasty with minimal bone available for distal fixation. JULY 2020 She had removal of components and placement of a distal femoral replacement with rotating hinge construct. FEVER T MAX 101.6F 6-17 SEPSIS PLAN ADMIT hold off on antibiotics until he takes the patient to surgery Postoperatively, she is going to need wound care, PT, OT and probably intermediate facility. ID CONSULT BLOOD CULTURES Operative procedure: Irrigation and debridement right knee with superficial and deep cultures and retention of hardware 618 6-18 hold off on antibiotics until he takes the patient to surgery Postoperatively, she is going to need wound care, PT, OT and probably intermediate facility. ID CONSULT BLOOD CULTURES Operative procedure: Irrigation and debridement right knee with superficial and deep cultures and retention of hardware 6-18 37 min pt exam, chart review, > 50% of time spent with exam, chart review, pt care coordination 619 emperic iv antibiotics Postoperatively, she is going to need wound care, PT, OT and probably intermediate facility. ID CONSULT BLOOD CULTURES Operative procedure: Irrigation and debridement right knee with superficial and deep cultures and retention of hardware 6-18 38 min pt exam, chart review, > 50% of time spent with exam, chart review, pt care coordination History of Present Illness History of Present Illness ADMIT DATE: 08/27/2020 CHIEF COMPLAINT: Right knee swelling, pain, discharge. HISTORY OF PRESENT ILLNESS: The patient is a pleasant 89-year-old female who underwent a right knee replacement with Dr. Rossi on 07/21 last month. She was doing relatively well, but then she fell and refractured the knee. I spoke with Dr. Rossi about the procedure. He had to go back in and put in a complex rotating hinge as she did not have much bone left above the previous knee replacement. Postoperatively, she was sent to [facility] for rehabilitation. She was doing relatively well once again, but then started having some drainage. Dr. Rossi requested that she be put on a wound VAC. Apparently, the wound VAC situation was not helping much. Dr. Rossi states that it probably was not put on properly. Nevertheless, the patient came to our ER today with more drainage and some swelling and pain. Dr. Rossi called Dr. Cortes and had him do an arthrocentesis. The patient is now being examined on the medical floor, where she is getting ready to go to surgery here in a few minutes. PAST MEDICAL HISTORY: The above-mentioned complex knee replacement twice; arthritis; GERD; hyperlipidemia; hypertension; thyroid surgery; overactive bladder; partial hysterectomy, right; multiple hernia repairs. ALLERGIES: PREDNISONE AND CARAFATE. FAMILY HISTORY: Diabetes. SOCIAL HISTORY: She does not drink, smoke or take drugs. She is retired; has 3 children, one of her daughters is here, she seems to be a very good support for her. MEDICATIONS: Reviewed. Please refer to the MRAD. REVIEW OF SYSTEMS: GENERAL: No history of weight change, weakness or fevers. SKIN: No bruising, hair changes or rashes. EYES: No blurred, double or loss of vision. NOSE AND THROAT: No history of nosebleeds, hoarseness or sore throat. HEART: No history of palpitations, chest pain or shortness of breath on exertion. LUNGS: Denies cough, hemoptysis, wheezing or shortness of breath. GASTROINTESTINAL: Denies changes in appetite, nausea, vomiting, diarrhea or constipation. GENITOURINARY: No history of frequency, urgency, hesitancy or nocturia. NEUROLOGIC: Denies history of numbness, tingling, tremor or weakness. PSYCHIATRIC: No history of panic, anxiety or depression. ENDOCRINE: No history of heat or cold intolerance, polyuria or polydipsia. EXTREMITIES: She complains of right knee pain. Vitals Vitals Vital Signs Date Time Temp Pulse Resp B/P (MAP) Pulse Ox O2 Delivery O2 Flow Rate FiO2 08/29/20 07:58 Room Air 08/29/20 07:00 98.6 73 18 134/54 (80) 95 98.6 Physical Exam Physical Exam GENERAL: Alert, oriented x 3, pleasant female, lying in bed comfortably, in no acute distress. HEENT: Normocephalic, atraumatic. Anicteric. NECK: Supple. No JVD. LUNGS: Clear bilaterally. No wheezing. HEART: S1, S2. No gallops or murmurs. ABDOMEN: Soft, obese, nontender, nondistended. EXTREMITIES: Right lower extremity swelling present. Wound VAC in place. Minimal warmth. No surrounding erythema noted. NEUROLOGIC: Alert, oriented x 3, grossly nonfocal. PSYCHIATRIC: Calm and cooperative. DERMATOLOGIC: Warm, dry, no generalized rash. PIV looks clean. General: Alert, Cooperative, No acute distress Heart: Regular rate Lungs: Clear Abdomen: Normal bowel sounds, Soft Extremities: No cyanosis Labs LABS Laboratory Tests Test 08/28/20 11:55 08/29/20 06:30 Erythrocyte Sedimentation Rate 26 (0-25) White Blood Count 4.7 x10^3/uL (4.0-11.0) Red Blood Count 2.75 x10^6/uL (3.50-5.40) Hemoglobin 8.7 g/dL (12.0-15.5) Hematocrit 26.6 % (36.0-47.0) Mean Corpuscular Volume 97 fL (79-100) Mean Corpuscular Hemoglobin 32 pg (25-35) Mean Corpuscular Hemoglobin Concent 33 g/dL (31-37) Red Cell Distribution Width 14.9 % (11.5-14.5) Platelet Count 174 x10^3/uL (140-400) Neutrophils (%) (Auto) 59 % (31-73) Lymphocytes (%) (Auto) 21 % (24-48) Monocytes (%) (Auto) 17 % (0-9) Eosinophils (%) (Auto) 2 % (0-3) Basophils (%) (Auto) 1 % (0-3) Neutrophils # (Auto) 2.8 x10^3/uL (1.8-7.7) Lymphocytes # (Auto) 1.0 x10^3/uL (1.0-4.8) Monocytes # (Auto) 0.8 x10^3/uL (0.0-1.1) Eosinophils # (Auto) 0.1 x10^3/uL (0.0-0.7) Basophils # (Auto) 0.0 x10^3/uL (0.0-0.2) Sodium Level 143 mmol/L (136-145) Potassium Level 4.1 mmol/L (3.5-5.1) Chloride Level 109 mmol/L (98-107) Carbon Dioxide Level 26 mmol/L (21-32) Anion Gap 8 (6-14) Blood Urea Nitrogen 13 mg/dL (7-20) Creatinine 0.9 mg/dL (0.6-1.0) Estimated GFR (Cockcroft-Gault) 59.0 BUN/Creatinine Ratio 14 (6-20) Glucose Level 85 mg/dL (70-99) Calcium Level 7.4 mg/dL (8.5-10.1) Total Bilirubin 0.4 mg/dL (0.2-1.0) Aspartate Amino Transf (AST/SGOT) 10 U/L (15-37) Alanine Aminotransferase (ALT/SGPT) 13 U/L (14-59) Alkaline Phosphatase 101 U/L (46-116) Creatine Kinase 7 U/L (26-192) Total Protein 4.9 g/dL (6.4-8.2) Albumin 1.8 g/dL (3.4-5.0) Albumin/Globulin Ratio 0.6 (1.0-1.7) Assessment and Plan Assessmemt and Plan Problems Medical Problems: (1) Cellulitis Status: Acute Comment Review of Relevant I have reviewed the following items fiorella (where applicable) has been applied. Labs Laboratory Tests Test 08/27/20 13:17 08/27/20 14:30 08/27/20 16:00 08/27/20 16:55 White Blood Count 8.5 x10^3/uL (4.0-11.0) Red Blood Count 3.11 x10^6/uL (3.50-5.40) Hemoglobin 9.9 g/dL (12.0-15.5) Hematocrit 30.1 % (36.0-47.0) Mean Corpuscular Volume 97 fL (79-100) Mean Corpuscular Hemoglobin 32 pg (25-35) Mean Corpuscular Hemoglobin Concent 33 g/dL (31-37) Red Cell Distribution Width 15.1 % (11.5-14.5) Platelet Count 183 x10^3/uL (140-400) Neutrophils (%) (Auto) 76 % (31-73) Lymphocytes (%) (Auto) 12 % (24-48) Monocytes (%) (Auto) 11 % (0-9) Eosinophils (%) (Auto) 1 % (0-3) Basophils (%) (Auto) 0 % (0-3) Neutrophils # (Auto) 6.5 x10^3/uL (1.8-7.7) Lymphocytes # (Auto) 1.0 x10^3/uL (1.0-4.8) Monocytes # (Auto) 0.9 x10^3/uL (0.0-1.1) Eosinophils # (Auto) 0.0 x10^3/uL (0.0-0.7) Basophils # (Auto) 0.0 x10^3/uL (0.0-0.2) Segmented Neutrophils % 69 % (35-66) Band Neutrophils % 13 % (0-9) Lymphocytes % 10 % (24-48) Monocytes % 8 % (0-10) Platelet Estimate Adequate (ADEQUATE) Sodium Level 137 mmol/L (136-145) Potassium Level 4.0 mmol/L (3.5-5.1) Chloride Level 103 mmol/L (98-107) Carbon Dioxide Level 24 mmol/L (21-32) Anion Gap 10 (6-14) Blood Urea Nitrogen 22 mg/dL (7-20) Creatinine 1.2 mg/dL (0.6-1.0) Estimated GFR (Cockcroft-Gault) 42.3 BUN/Creatinine Ratio 18 (6-20) Glucose Level 165 mg/dL (70-99) Lactic Acid Level 2.7 mmol/L (0.4-2.0) 1.7 mmol/L (0.4-2.0) Calcium Level 8.3 mg/dL (8.5-10.1) Total Bilirubin 0.6 mg/dL (0.2-1.0) Aspartate Amino Transf (AST/SGOT) 24 U/L (15-37) Alanine Aminotransferase (ALT/SGPT) 25 U/L (14-59) Alkaline Phosphatase 128 U/L (46-116) Total Protein 5.5 g/dL (6.4-8.2) Albumin 2.7 g/dL (3.4-5.0) Albumin/Globulin Ratio 1.0 (1.0-1.7) Body Fluid Source Synovial Body Fluid Color Red Body Fluid Clarity Turbid Body Fluid Nucleated Cells 2100 /cmm (Not Established) Body Fluid Mononuclear WBCs (%) 2 % Body Fluid Polymorphonuclear Cells 98 % Body Fluid Total RBCs Counted 452645 /cmm (Not Body Fluid Other Cells (%) 0 % SARS-CoV-2 Antigen (Rapid) Negative (NEGATIVE) Test 08/28/20 06:40 08/28/20 11:55 08/29/20 06:30 White Blood Count 6.2 x10^3/uL (4.0-11.0) 4.7 x10^3/uL (4.0-11.0) Red Blood Count 2.65 x10^6/uL (3.50-5.40) 2.75 x10^6/uL (3.50-5.40) Hemoglobin 8.6 g/dL (12.0-15.5) 8.7 g/dL (12.0-15.5) Hematocrit 25.4 % (36.0-47.0) 26.6 % (36.0-47.0) Mean Corpuscular Volume 96 fL (79-100) 97 fL (79-100) Mean Corpuscular Hemoglobin 33 pg (25-35) 32 pg (25-35) Mean Corpuscular Hemoglobin Concent 34 g/dL (31-37) 33 g/dL (31-37) Red Cell Distribution Width 14.7 % (11.5-14.5) 14.9 % (11.5-14.5) Platelet Count 154 x10^3/uL (140-400) 174 x10^3/uL (140-400) Neutrophils (%) (Auto) 67 % (31-73) 59 % (31-73) Lymphocytes (%) (Auto) 17 % (24-48) 21 % (24-48) Monocytes (%) (Auto) 16 % (0-9) 17 % (0-9) Eosinophils (%) (Auto) 0 % (0-3) 2 % (0-3) Basophils (%) (Auto) 0 % (0-3) 1 % (0-3) Neutrophils # (Auto) 4.2 x10^3/uL (1.8-7.7) 2.8 x10^3/uL (1.8-7.7) Lymphocytes # (Auto) 1.0 x10^3/uL (1.0-4.8) 1.0 x10^3/uL (1.0-4.8) Monocytes # (Auto) 1.0 x10^3/uL (0.0-1.1) 0.8 x10^3/uL (0.0-1.1) Eosinophils # (Auto) 0.0 x10^3/uL (0.0-0.7) 0.1 x10^3/uL (0.0-0.7) Basophils # (Auto) 0.0 x10^3/uL (0.0-0.2) 0.0 x10^3/uL (0.0-0.2) Sodium Level 142 mmol/L (136-145) 143 mmol/L (136-145) Potassium Level 4.5 mmol/L (3.5-5.1) 4.1 mmol/L (3.5-5.1) Chloride Level 109 mmol/L (98-107) 109 mmol/L (98-107) Carbon Dioxide Level 27 mmol/L (21-32) 26 mmol/L (21-32) Anion Gap 6 (6-14) 8 (6-14) Blood Urea Nitrogen 17 mg/dL (7-20) 13 mg/dL (7-20) Creatinine 1.0 mg/dL (0.6-1.0) 0.9 mg/dL (0.6-1.0) Estimated GFR (Cockcroft-Gault) 52.2 59.0 Glucose Level 98 mg/dL (70-99) 85 mg/dL (70-99) Calcium Level 7.4 mg/dL (8.5-10.1) 7.4 mg/dL (8.5-10.1) C-Reactive Protein, Quantitative 210.6 mg/L (0-3.3) Erythrocyte Sedimentation Rate 26 (0-25) BUN/Creatinine Ratio 14 (6-20) Total Bilirubin 0.4 mg/dL (0.2-1.0) Aspartate Amino Transf (AST/SGOT) 10 U/L (15-37) Alanine Aminotransferase (ALT/SGPT) 13 U/L (14-59) Alkaline Phosphatase 101 U/L (46-116) Creatine Kinase 7 U/L (26-192) Total Protein 4.9 g/dL (6.4-8.2) Albumin 1.8 g/dL (3.4-5.0) Albumin/Globulin Ratio 0.6 (1.0-1.7) Laboratory Tests Test 08/28/20 11:55 08/29/20 06:30 Erythrocyte Sedimentation Rate 26 (0-25) White Blood Count 4.7 x10^3/uL (4.0-11.0) Red Blood Count 2.75 x10^6/uL (3.50-5.40) Hemoglobin 8.7 g/dL (12.0-15.5) Hematocrit 26.6 % (36.0-47.0) Mean Corpuscular Volume 97 fL (79-100) Mean Corpuscular Hemoglobin 32 pg (25-35) Mean Corpuscular Hemoglobin Concent 33 g/dL (31-37) Red Cell Distribution Width 14.9 % (11.5-14.5) Platelet Count 174 x10^3/uL (140-400) Neutrophils (%) (Auto) 59 % (31-73) Lymphocytes (%) (Auto) 21 % (24-48) Monocytes (%) (Auto) 17 % (0-9) Eosinophils (%) (Auto) 2 % (0-3) Basophils (%) (Auto) 1 % (0-3) Neutrophils # (Auto) 2.8 x10^3/uL (1.8-7.7) Lymphocytes # (Auto) 1.0 x10^3/uL (1.0-4.8) Monocytes # (Auto) 0.8 x10^3/uL (0.0-1.1) Eosinophils # (Auto) 0.1 x10^3/uL (0.0-0.7) Basophils # (Auto) 0.0 x10^3/uL (0.0-0.2) Sodium Level 143 mmol/L (136-145) Potassium Level 4.1 mmol/L (3.5-5.1) Chloride Level 109 mmol/L (98-107) Carbon Dioxide Level 26 mmol/L (21-32) Anion Gap 8 (6-14) Blood Urea Nitrogen 13 mg/dL (7-20) Creatinine 0.9 mg/dL (0.6-1.0) Estimated GFR (Cockcroft-Gault) 59.0 BUN/Creatinine Ratio 14 (6-20) Glucose Level 85 mg/dL (70-99) Calcium Level 7.4 mg/dL (8.5-10.1) Total Bilirubin 0.4 mg/dL (0.2-1.0) Aspartate Amino Transf (AST/SGOT) 10 U/L (15-37) Alanine Aminotransferase (ALT/SGPT) 13 U/L (14-59) Alkaline Phosphatase 101 U/L (46-116) Creatine Kinase 7 U/L (26-192) Total Protein 4.9 g/dL (6.4-8.2) Albumin 1.8 g/dL (3.4-5.0) Albumin/Globulin Ratio 0.6 (1.0-1.7) Microbiology 08/27/20 Gram Stain - Final, Resulted 08/27/20 Aerobic and Anaerobic Culture, Resulted Pending 08/27/20 Gram Stain - Final, Resulted 08/27/20 Aerobic and Anaerobic Culture, Resulted Pending 08/27/20 Blood Culture - Preliminary, Resulted NO GROWTH AFTER 1 DAY Medications Current Medications Vancomycin HCl 1 gm/Sodium Chloride 250 ml @ 166.667 mls/hr 1X ONCE IV ; Start 08/27/20 at 14:00; Stop 08/27/20 at 14:04; Status DC Vancomycin HCl 1.75 gm/Sodium Chloride 500 ml @ 250 mls/hr 1X ONCE IV Last administered on 08/27/20at 15:13; Start 08/27/20 at 14:30; Stop 08/27/20 at 16:29; Status DC Sodium Chloride 1,000 ml @ 1,000 mls/hr 1X ONCE IV Last administered on 08/27/20at 15:12; Start 08/27/20 at 14:15; Stop 08/27/20 at 15:14; Status DC Fentanyl Citrate (Fentanyl 2ml Vial) 25 mcg PRN Q5MIN PRN IVP MILD PAIN 1-3; Start 08/27/20 at 16:30; Stop 08/28/20 at 16:29; Status DC Fentanyl Citrate (Fentanyl 2ml Vial) 50 mcg PRN Q5MIN PRN IVP MODERATE PAIN 4-6 Last administered on 08/27/20at 21:50; Start 08/27/20 at 16:30; Stop 08/28/20 at 16:29; Status DC Morphine Sulfate (Morphine Sulfate) 1 mg PRN Q10MIN PRN IVP SEVERE PAIN 7-10 Last administered on 08/27/20at 22:13; Start 08/27/20 at 16:30; Stop 08/28/20 at 16:29; Status DC Ringer's Solution 1,000 ml @ 30 mls/hr Q24H IV ; Start 08/27/20 at 16:30; Stop 08/28/20 at 04:29; Status DC Hydromorphone HCl (Dilaudid) 0.5 mg PRN Q10MIN PRN IVP SEVERE PAIN 7-10, 2nd CHOICE Last administered on 08/27/20at 22:24; Start 08/27/20 at 16:30; Stop 08/28/20 at 16:29; Status DC Prochlorperazine Edisylate (Compazine) 5 mg PACU PRN PRN IVP NAUSEA, MRX1; Start 08/27/20 at 16:30; Stop 08/28/20 at 16:29; Status DC Propofol (Diprivan) 200 mg STK-MED ONCE IV ; Start 08/27/20 at 19:50; Stop 08/27/20 at 19:51; Status DC Lidocaine HCl (Lidocaine Pf 2% Vial) 5 ml STK-MED ONCE .ROUTE ; Start 08/27/20 at 19:50; Stop 08/27/20 at 19:51; Status DC Fentanyl Citrate (Fentanyl 2ml Vial) 100 mcg STK-MED ONCE .ROUTE ; Start 08/27/20 at 19:58; Stop 08/27/20 at 19:58; Status DC Ondansetron HCl (Zofran) 4 mg STK-MED ONCE .ROUTE ; Start 08/27/20 at 20:36; Stop 08/27/20 at 20:37; Status DC Dexamethasone Sodium Phosphate (Decadron) 4 mg STK-MED ONCE .ROUTE ; Start 08/27/20 at 20:36; Stop 08/27/20 at 20:37; Status DC Phenylephrine HCl (PHENYLEPHRINE in 0.9% NACL PF) 1 mg STK-MED ONCE IV ; Start 08/27/20 at 20:37; Stop 08/27/20 at 20:37; Status DC Sevoflurane (Ultane) 60 ml STK-MED ONCE IH ; Start 08/27/20 at 21:22; Stop 08/27/20 at 21:22; Status DC Fentanyl Citrate (Fentanyl 2ml Vial) 100 mcg STK-MED ONCE .ROUTE ; Start 08/27/20 at 21:45; Stop 08/27/20 at 21:45; Status DC Morphine Sulfate (Morphine Sulfate) 2 mg STK-MED ONCE .ROUTE ; Start 08/27/20 at 22:01; Stop 08/27/20 at 22:01; Status DC Hydromorphone HCl (Dilaudid) 2 mg STK-MED ONCE .ROUTE ; Start 08/27/20 at 22:21; Stop 08/27/20 at 22:21; Status DC Sodium Chloride 1,000 ml @ 75 mls/hr [id number] IV Last administered on 08/29/20at 01:55; Start 08/28/20 at 09:45 Daptomycin 410 mg/ Sodium Chloride 50 ml @ 100 mls/hr Q24H IV Last administered on 08/28/20at 13:27; Start 08/28/20 at 12:30 Piperacillin Sod/ Tazobactam Sod 3.375 gm/Sodium Chloride 50 ml @ 100 mls/hr Q6HRS IV Last administered on 08/29/20at 06:11; Start 08/28/20 at 12:00 Acetaminophen (Tylenol) 1,000 mg PRN BID PRN PO pain or fever; Start 08/28/20 at 14:45 Docusate Sodium (Colace) 100 mg BID PO Last administered on 08/29/20at 08:37; Start 08/28/20 at 21:00 Levothyroxine Sodium (Synthroid) 88 mcg DAILY07 PO Last administered on 08/29/20at 06:43; Start 08/29/20 at 07:00 Simvastatin (Zocor) 20 mg HS PO Last administered on 08/28/20at 21:32; Start 08/28/20 at 21:00 Tramadol HCl (Ultram) 50 mg PRN Q4HRS PRN PO MODERATE-SEVERE PAIN Last administered on 08/28/20at 15:01; Start 08/28/20 at 14:45 Vitamin D (Vitamin D3) 2,000 unit DAILY PO Last administered on 08/29/20at 08:37; Start 08/29/20 at 09:00 Non-Formulary Medication (Melatonin ) 1 tab QHS PO ; Start 08/28/20 at 21:00; Status UNV Multivitamins (Thera M Plus) 1 tab DAILY PO Last administered on 08/29/20at 08:37; Start 08/29/20 at 09:00 Pantoprazole Sodium (Protonix) 40 mg DAILYAC PO Last administered on 08/29/20at 08:37; Start 08/29/20 at 07:30 Oxybutynin Chloride (Ditropan) 5 mg [id number] PO Last administered on 08/29/20at 06:43; Start 08/28/20 at 21:00 Active Scripts Active Reported Acetaminophen 500 Mg Tablet 2 Tab PO PRN BID PRN 30 Days Tramadol Hcl 50 Mg Tablet 50 Mg PO Q4HRS PRN Melatonin 5 Mg Tab.rapdis 1 Tab PO QHS 30 Days Colace (Docusate Sodium) 100 Mg Capsule 1 Cap PO BID 30 Days Vesicare (Solifenacin Succinate) 10 Mg Tablet 1 Tab PO DAILY 30 Days Levothyroxine Sodium 88 Mcg Tablet 1 Tab PO DAILY Omeprazole 20 Mg Capsule.dr 1 Cap PO DAILY Vitamin D3 (Cholecalciferol (Vitamin D3)) 2,000 Unit Tablet 2,000 Unit PO DAILY Once Daily (Multivitamin) 1 Each Tablet 1 Each PO DAILY Simvastatin 20 Mg Tablet 20 Mg PO HS Vitals/I & O Vital Sign - Last 24 Hours 08/28/20 08/28/20 08/28/20 08/28/20 15:00 19:15 19:45 23:16 Temp 98.3 99.4 98.7 98.3 99.4 98.7 Pulse 82 76 80 Resp 18 18 18 B/P (MAP) 141/50 (80) 117/47 (70) 120/48 (72) Pulse Ox 95 96 96 O2 Delivery Room Air Room Air Room Air Room Air 08/29/20 08/29/20 08/29/20 03:08 07:00 07:58 Temp 97.8 98.6 97.8 98.6 Pulse 84 73 Resp 18 18 B/P (MAP) 140/59 (86) 134/54 (80) Pulse Ox 90 95 O2 Delivery Room Air Room Air Room Air Intake and Output 08/28/20 08/28/20 08/29/20 15:00 23:00 07:00 Intake Total 240 ml 2220 ml Balance 240 ml 2220 ml Justicifation of Admission Dx: Justifications for Admission: Justification of Admission Dx: N/A SUNSHINE GALEAS MD Aug 29, 2020 11:19
[2020-08-29] MEDS: ACETAMINOPHEN 500 MG TABLET PO PRN (11:34)
[2020-08-29] MEDS: DAPTOmycin (GENERIC) IVPB 410 MG in IV NORMAL SALINE 50ML 50 ML IV SCH (13:15)
[2020-08-29 15:00] VITALS: BP 135/62
[2020-08-29 19:00] VITALS: BP 117/67
[2020-08-29] MEDS: LACTOBACILLUS RHAMNOSUS GG 1 CAPSULE. PO SCH (21:16)
[2020-08-29] MEDS: SIMVASTATIN 20 MG TABLET PO SCH (21:16)
[2020-08-29 23:00] VITALS: BP 127/61
[2020-08-30] MEDS: IV NORMAL SALINE 1000ML BAG 1,000 ML IV SCH ×2 (02:38→15:05)
[2020-08-30 03:00] VITALS: BP 151/66
[2020-08-30] MEDS: PIPERACILLIN/TAZOBACTAM 3.375 GM in IV NORMAL SALINE 50ML 50 ML IV SCH (05:57)
[2020-08-30] MEDS: PANTOPRAZOLE 40 MG TABLET.DR. PO SCH (06:33)
[2020-08-30] MEDS: LEVOTHYROXINE 88 MCG TABLET PO SCH (06:33)
[2020-08-30 07:00] VITALS: BP 150/60
[2020-08-30] MEDS: DOCUSATE SODIUM 100 MG CAPSULE. PO SCH ×2 (08:10→20:15)
[2020-08-30] MEDS: CHOLECALCIFEROL (VITAMIN D3) 1,000 UNIT TABLET PO SCH (08:10)
[2020-08-30] MEDS: OXYBUTYNIN CHLORIDE 5 MG TABLET PO SCH ×3 (08:10→20:14)
[2020-08-30] MEDS: LACTOBACILLUS RHAMNOSUS GG 1 CAPSULE. PO SCH ×2 (08:10→20:15)
[2020-08-30] MEDS: MULTIVITAMIN with MINERAL TABLET. PO SCH (08:10)
--- NOTE | 2020-08-30 09:29 | PDOC ---
Infectious Disease Note Subjective: Subjective Patient's postop site pain is under control Denies fever, nausea, vomiting, shortness of breath, diarrhea, abdominal pain, rash Otherwise as above Vital Signs: Vital Signs Vital Signs Date Time Temp Pulse Resp B/P (MAP) Pulse Ox O2 Delivery O2 Flow Rate FiO2 08/30/20 07:00 98.0 73 18 150/60 (90) 96 Room Air 98.0 Physical Exam: PHYSICAL EXAM GENERAL: Alert, oriented x 3, pleasant female, lying in bed comfortably, in no acute distress. HEENT: Normocephalic, atraumatic. Anicteric. NECK: Supple. No JVD. LUNGS: Clear bilaterally. No wheezing. HEART: S1, S2. No gallops or murmurs. ABDOMEN: Soft, obese, nontender, nondistended. EXTREMITIES: Right lower extremity swelling present. Wound VAC in place. Minimal warmth. No surrounding erythema noted. NEUROLOGIC: Alert, oriented x 3, grossly nonfocal. PSYCHIATRIC: Calm and cooperative. DERMATOLOGIC: Warm, dry, no generalized rash. PIV looks clean. Medications: Inpatient Meds: Medications reviewed. Labs: Micro RUN DATE: 08/30/20 [facility] *LIVE* PAGE 1 RUN TIME: 913 Specimen Inquiry -- PATIENT: YONIS HAIRSTON ACCT: [id number] LOC: [address] [place] [address] U: [id number] AGE/SX: 89/F ROOM: [facility] RE 08/27/[address]: JUDIE HUBBARD III, DO : 1930 BED: 1 DIS: STATUS: ADM IN TLOC: SPEC #: [id number] OFE: 08/27/20 STATUS: RES REQ #: [id number] RECD: 08/28/[address]: JUDIE HUBBARD III, DO SOURCE: KNEE ENTR: 08/28/[address]: YAN RIOS MD SPDESC: BEVERLY PERRY MD ORDERED: ANAER/AEROB/GS COMMENTS: R KNEE JOINT FLUID Procedure Result GRAM STAIN Final Final GRAM POS COCCI CLUSTERS:MODERATE RBC:MANY SQUAMOUS EPI CELL:NOT APPLICABLE PMN (WBCs):MANY Unless otherwise specified, Testing Performed by: [address] [address] For Inquires, the Physician may contact the Microbiology department at [phone] ANAEROBIC-AEROBIC CULTURE Preliminary Preliminary MANY [STAPHYLOCOCCUS AUREUS (MRSA)] on 08/29/20 at 1351 STAPHYLOCOCCUS AUREUS (MRSA) ANTIMICROBIAL SUSCEPTIBILITY Preliminary Comment POS JC TYPE 38 STAPHYLOCOCCUS AUREUS (MRSA) ANTIBIOTIC RESULT INTERPRETATION AZITHROMYCIN >4 R CLINDAMYCIN <=0.25 R* CEFOXITIN SCREEN >4 POS CIPROFLOXACIN >2 R CEFTAROLINE 1 S DAPTOMYCIN 1 S ERYTHROMYCIN >4 R GENTAMICIN >8 R INDUCIBLE CLINDAMYCIN >4/0.5 POS LINEZOLID 2 S LEVOFLOXACIN >4 R OXACILLIN >2 R PENICILLIN >2 R* RIFAMPIN <=1 S TRIMETHOPRIM/SULFAMETHOXAZOLE >2/38 R TETRACYCLINE >8 R RUN DATE: 08/30/20 [facility] *LIVE* PAGE 2 RUN TIME: 913 Specimen Inquiry ------ ------ SPEC: [id number] PATIENT: YONIS HAIRSTON [id number] (Continued) Procedure Result CONTINUED ON NEXT PAGE RUN DATE: 08/30/20 [facility] *LIVE* PAGE 3 RUN TIME: 0914 Specimen Inquiry SPEC: [id number] PATIENT: YONIS HAIRSTON [id number] (Continued) Procedure Result ANTIMICROBIAL SUSCEPTIBILITY Preliminary (continued) VANCOMYCIN 1 S Unless otherwise specified, Testing Performed by: [address] [address] For Inquires, the Physician may contact the Microbiology department at [phone] Objective: Assessment: MRSA Complicated RT Knee arthroplasty infection ( R to bactrim and Doxycycline, S to Rifampin) 1. Fever. 2. Right knee postop site drainage,hematoma with infection Status post synovial aspirate on 08/27/2020, WBC 2100, RBC 102,000, 98%PMNs. Cult MRSA 3. MRSA Right knee periprosthetic joint infection. S/P Irrigation and debridement right knee with superficial and deep cultures and retention of hardware Jt Fluid cultures done per DR Rossi + MRSA Subcut tissue cult positive for MRSA 4. 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 5. Supracondylar fracture just above the knee joint 6. Status post removal of the components and placement of distal femoral replacement with a rotating hinge construct for periprosthetic distal femur fracture above well-fixated right total knee arthroplasty, 08/01/2020. 7. 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 8. Degenerative joint disease. 9. Bandemia. 10. Lactic acidosis. 11. Hypertension/hyperlipidemia. 12. History of chronic kidney disease. Plan: Plan of Care 1. Cont daptomycin but increase the dose to 10mg/kg daily and add Rifampin DC Zosyn 2. Avoid IV vancomycin due to BERHANE . 3. Follow up labs and cultures. 4. Wound /VAC care as directed by Orthopedics. 5. PT and OT as directed by Orthopedics. 6. Monitor labs and cultures. 7. Continue supportive care. INES RIOS MD Aug 30, 2020 09:29
[2020-08-30] MEDS: ACETAMINOPHEN 500 MG TABLET PO PRN ×2 (09:32→21:28)
[2020-08-30 11:00] VITALS: BP 153/70
--- NOTE | 2020-08-30 11:19 | PDOC ---
PROGRESS NOTES Date of Service: DATE: 08/30/20 TIME: 11:19 Chief Complaint Chief Complaint ASSESSMENT Right knee swelling and discharge and pain after 2 recent knee replacements. Ms. Hairston is a 89 old female periprosthetic distal femur fracture above well fixated right total knee arthroplasty with minimal bone available for distal fixation. JULY 2020 She had removal of components and placement of a distal femoral replacement with rotating hinge construct. FEVER T MAX 101.6F 6-17 SEPSIS PLAN ADMIT hold off on antibiotics until he takes the patient to surgery Postoperatively, she is going to need wound care, PT, OT and probably [facility] facility. ID CONSULT BLOOD CULTURES Operative procedure: Irrigation and debridement right knee with superficial and deep cultures and retention of hardware 6-18 6-18 hold off on antibiotics until he takes the patient to surgery Postoperatively, she is going to need wound care, PT, OT and probably [facility] facility. ID CONSULT BLOOD CULTURES Operative procedure: Irrigation and debridement right knee with superficial and deep cultures and retention of hardware 6-18 37 min pt exam, chart review, > 50% of time spent with exam, chart review, pt care coordination 6-19 emperic iv antibiotics Postoperatively, she is going to need wound care, PT, OT and probably [facility] facility. ID CONSULT BLOOD CULTURES Operative procedure: Irrigation and debridement right knee with superficial and deep cultures and retention of hardware 6-18 38 min pt exam, chart review, > 50% of time spent with exam, chart review, pt care coordination 6-20 pain improving emperic iv antibiotics Postoperatively, wound care, PT, OT and probably [facility] facility. ID CONSULT BLOOD CULTURES Operative procedure: Irrigation and debridement right knee with superficial and deep cultures and retention of hardware 618 Procedure Result GRAM STAIN Final Final GRAM POS COCCI CLUSTERS:MODERATE RBC:MANY SQUAMOUS EPI CELL:NOT APPLICABLE PMN (WBCs):MANY Unless otherwise specified, Testing Performed by: [address] [address] For Inquires, the Physician may contact the Microbiology department at [phone] ANAEROBIC-AEROBIC CULTURE Preliminary Preliminary MANY [STAPHYLOCOCCUS AUREUS (MRSA)] on 08/29/20 at 1351 STAPHYLOCOCCUS AUREUS (MRSA) ANTIMICROBIAL SUSCEPTIBILITY Preliminary Comment POS JC TYPE 38 STAPHYLOCOCCUS AUREUS (MRSA) ANTIBIOTIC RESULT INTERPRETATION AZITHROMYCIN >4 R CLINDAMYCIN <=0.25 R* CEFOXITIN SCREEN >4 POS CIPROFLOXACIN >2 R CEFTAROLINE 1 S DAPTOMYCIN 1 S ERYTHROMYCIN >4 R GENTAMICIN >8 R INDUCIBLE CLINDAMYCIN >4/0.5 POS LINEZOLID 2 S LEVOFLOXACIN >4 R OXACILLIN >2 R PENICILLIN >2 R* RIFAMPIN <=1 S TRIMETHOPRIM/SULFAMETHOXAZOLE >2/38 R TETRACYCLINE >8 R RUN DATE: 08/30/20 [facility] *LIVE* PAGE 2 RUN TIME: 913 Specimen Inquiry SPEC: [id number] PATIENT: MARIKAYONIS [id number] (Continued) Procedure Result CONTINUED ON NEXT PAGE RUN DATE: 08/30/20 [facility] *LIVE* PAGE 3 RUN TIME: 0914 Specimen Inquiry SPEC: [id number] PATIENT: YONIS HAIRSTON [id number] (Continued) SPEC #: [id number] OFE: 08/27/20 STATUS: RES REQ #: [id number] RECD: 08/28/[address]: JUDIE HUBBARD III, DO SOURCE: LEG ENTR: 08/28/[address]: YAN RIOS [facility],BEVERLY De Jesus MD ORDERED: ANAER/AEROB/GS COMMENTS: R LEG SUBCUTANEOUS --------- --- Procedure Result GRAM STAIN Final Final GRAM POS COCCI CLUSTERS:MODERATE RBC:MODERATE SQUAMOUS EPI CELL:RARE PMN (WBCs):MANY Unless otherwise specified, Testing Performed by: [address] [address] For Inquires, the Physician may contact the Microbiology department at [phone] ANAEROBIC-AEROBIC CULTURE Preliminary Preliminary MANY [STAPHYLOCOCCUS AUREUS (MRSA)] on 08/29/20 at 1351 SEE CULTURE AN663 FOR SUSCEPTIBILITY RESULTS STAPHYLOCOCCUS AUREUS (MRSA) Unless otherwise specified, Testing Performed by: [facility] [address] [place] [address] For Inquires, the Physician may contact the Microbiology department at [phone] ---- -------- 36 min pt exam, chart review, > 50% of time spent with exam, chart review, pt care coordination History of Present Illness History of Present Illness ADMIT DATE: 08/27/2020 CHIEF COMPLAINT: Right knee swelling, pain, discharge. HISTORY OF PRESENT ILLNESS: The patient is a pleasant 89-year-old female who underwent a right knee replacement with Dr. Rossi on 07/21 last month. She was doing relatively well, but then she fell and refractured the knee. I spoke with Dr. Rossi about the procedure. He had to go back in and put in a complex rotating hinge as she did not have much bone left above the previous knee replacement. Postoperatively, she was sent to [place] for rehabilitation. She was doing relatively well once again, but then started having some drainage. Dr. Rossi requested that she be put on a wound VAC. Apparently, the wound VAC situation was not helping much. Dr. Rossi states that it probably was not put on properly. Nevertheless, the patient came to our ER today with more drainage and some swelling and pain. Dr. Rossi called Dr. Cortes and had him do an arthrocentesis. The patient is now being examined on the medical floor, where she is getting ready to go to surgery here in a few minutes. PAST MEDICAL HISTORY: The above-mentioned complex knee replacement twice; arthritis; GERD; hyperlipidemia; hypertension; thyroid surgery; overactive bladder; partial hysterectomy, right; multiple hernia repairs. ALLERGIES: PREDNISONE AND CARAFATE. FAMILY HISTORY: Diabetes. SOCIAL HISTORY: She does not drink, smoke or take drugs. She is retired; has 3 children, one of her daughters is here, she seems to be a very good support for her. MEDICATIONS: Reviewed. Please refer to the MRAD. REVIEW OF SYSTEMS: GENERAL: No history of weight change, weakness or fevers. SKIN: No bruising, hair changes or rashes. EYES: No blurred, double or loss of vision. NOSE AND THROAT: No history of nosebleeds, hoarseness or sore throat. HEART: No history of palpitations, chest pain or shortness of breath on exertion. LUNGS: Denies cough, hemoptysis, wheezing or shortness of breath. GASTROINTESTINAL: Denies changes in appetite, nausea, vomiting, diarrhea or constipation. GENITOURINARY: No history of frequency, urgency, hesitancy or nocturia. NEUROLOGIC: Denies history of numbness, tingling, tremor or weakness. PSYCHIATRIC: No history of panic, anxiety or depression. ENDOCRINE: No history of heat or cold intolerance, polyuria or polydipsia. EXTREMITIES: She complains of right knee pain. Vitals Vitals Vital Signs Date Time Temp Pulse Resp B/P (MAP) Pulse Ox O2 Delivery O2 Flow Rate FiO2 08/30/20 07:00 98.0 73 18 150/60 (90) 96 Room Air 98.0 Physical Exam Physical Exam GENERAL: Alert, oriented x 3, pleasant female, lying in bed comfortably, in no acute distress. HEENT: Normocephalic, atraumatic. Anicteric. NECK: Supple. No JVD. LUNGS: Clear bilaterally. No wheezing. HEART: S1, S2. No gallops or murmurs. ABDOMEN: Soft, obese, nontender, nondistended. EXTREMITIES: Right lower extremity swelling present. Wound VAC in place. Minimal warmth. No surrounding erythema noted. NEUROLOGIC: Alert, oriented x 3, grossly nonfocal. PSYCHIATRIC: Calm and cooperative. DERMATOLOGIC: Warm, dry, no generalized rash. PIV looks clean. General: Alert, Cooperative, No acute distress Heart: Regular rate Lungs: Clear Abdomen: Normal bowel sounds, Soft Extremities: No cyanosis Labs LABS Procedure Result GRAM STAIN Final Final GRAM POS COCCI CLUSTERS:MODERATE RBC:MANY SQUAMOUS EPI CELL:NOT APPLICABLE PMN (WBCs):MANY Unless otherwise specified, Testing Performed by: [address] [address] For Inquires, the Physician may contact the Microbiology department at [phone] ANAEROBIC-AEROBIC CULTURE Preliminary Preliminary MANY [STAPHYLOCOCCUS AUREUS (MRSA)] on 08/29/20 at 1351 STAPHYLOCOCCUS AUREUS (MRSA) ANTIMICROBIAL SUSCEPTIBILITY Preliminary Comment POS JC TYPE 38 STAPHYLOCOCCUS AUREUS (MRSA) ANTIBIOTIC RESULT INTERPRETATION AZITHROMYCIN >4 R CLINDAMYCIN <=0.25 R* CEFOXITIN SCREEN >4 POS CIPROFLOXACIN >2 R CEFTAROLINE 1 S DAPTOMYCIN 1 S ERYTHROMYCIN >4 R GENTAMICIN >8 R INDUCIBLE CLINDAMYCIN >4/0.5 POS LINEZOLID 2 S LEVOFLOXACIN >4 R OXACILLIN >2 R PENICILLIN >2 R* RIFAMPIN <=1 S TRIMETHOPRIM/SULFAMETHOXAZOLE >2/38 R TETRACYCLINE >8 R RUN DATE: 08/30/20 [facility] *LIVE* PAGE 2 RUN TIME: 913 Specimen Inquiry SPEC: [id number] PATIENT: YONIS HAIRSTON [id number] (Continued) ---- -------- Procedure Result CONTINUED ON NEXT PAGE RUN DATE: 08/30/20 [facility] *LIVE* PAGE 3 RUN TIME: 09 Specimen Inquiry SPEC: [id number] PATIENT: YONIS HAIRSTON [id number] (Continued) Assessment and Plan Assessmemt and Plan Problems Medical Problems: (1) Cellulitis Status: Acute Comment Review of Relevant I have reviewed the following items fiorella (where applicable) has been applied. Labs Laboratory Tests Test 08/28/20 11:55 08/29/20 06:30 Erythrocyte Sedimentation Rate 26 (0-25) White Blood Count 4.7 x10^3/uL (4.0-11.0) Red Blood Count 2.75 x10^6/uL (3.50-5.40) Hemoglobin 8.7 g/dL (12.0-15.5) Hematocrit 26.6 % (36.0-47.0) Mean Corpuscular Volume 97 fL (79-100) Mean Corpuscular Hemoglobin 32 pg (25-35) Mean Corpuscular Hemoglobin Concent 33 g/dL (31-37) Red Cell Distribution Width 14.9 % (11.5-14.5) Platelet Count 174 x10^3/uL (140-400) Neutrophils (%) (Auto) 59 % (31-73) Lymphocytes (%) (Auto) 21 % (24-48) Monocytes (%) (Auto) 17 % (0-9) Eosinophils (%) (Auto) 2 % (0-3) Basophils (%) (Auto) 1 % (0-3) Neutrophils # (Auto) 2.8 x10^3/uL (1.8-7.7) Lymphocytes # (Auto) 1.0 x10^3/uL (1.0-4.8) Monocytes # (Auto) 0.8 x10^3/uL (0.0-1.1) Eosinophils # (Auto) 0.1 x10^3/uL (0.0-0.7) Basophils # (Auto) 0.0 x10^3/uL (0.0-0.2) Sodium Level 143 mmol/L (136-145) Potassium Level 4.1 mmol/L (3.5-5.1) Chloride Level 109 mmol/L (98-107) Carbon Dioxide Level 26 mmol/L (21-32) Anion Gap 8 (6-14) Blood Urea Nitrogen 13 mg/dL (7-20) Creatinine 0.9 mg/dL (0.6-1.0) Estimated GFR (Cockcroft-Gault) 59.0 BUN/Creatinine Ratio 14 (6-20) Glucose Level 85 mg/dL (70-99) Calcium Level 7.4 mg/dL (8.5-10.1) Total Bilirubin 0.4 mg/dL (0.2-1.0) Aspartate Amino Transf (AST/SGOT) 10 U/L (15-37) Alanine Aminotransferase (ALT/SGPT) 13 U/L (14-59) Alkaline Phosphatase 101 U/L (46-116) Creatine Kinase 7 U/L (26-192) Total Protein 4.9 g/dL (6.4-8.2) Albumin 1.8 g/dL (3.4-5.0) Albumin/Globulin Ratio 0.6 (1.0-1.7) Microbiology 08/27/20 Gram Stain - Final, Resulted 08/27/20 Aerobic and Anaerobic Culture - Preliminary, Resulted 08/27/20 Antimicrobic Susceptibility - Preliminary, Resulted 08/27/20 Gram Stain - Final, Resulted 08/27/20 Aerobic and Anaerobic Culture - Preliminary, Resulted 08/27/20 Blood Culture - Preliminary, Resulted NO GROWTH AFTER 2 DAYS Medications Current Medications Vancomycin HCl 1 gm/Sodium Chloride 250 ml @ 166.667 mls/hr 1X ONCE IV ; Start 08/27/20 at 14:00; Stop 08/27/20 at 14:04; Status DC Vancomycin HCl 1.75 gm/Sodium Chloride 500 ml @ 250 mls/hr 1X ONCE IV Last administered on 08/27/20at 15:13; Start 08/27/20 at 14:30; Stop 08/27/20 at 16:29; Status DC Sodium Chloride 1,000 ml @ 1,000 mls/hr 1X ONCE IV Last administered on 08/27/20at 15:12; Start 08/27/20 at 14:15; Stop 08/27/20 at 15:14; Status DC Fentanyl Citrate (Fentanyl 2ml Vial) 25 mcg PRN Q5MIN PRN IVP MILD PAIN 1-3; Start 08/27/20 at 16:30; Stop 08/28/20 at 16:29; Status DC Fentanyl Citrate (Fentanyl 2ml Vial) 50 mcg PRN Q5MIN PRN IVP MODERATE PAIN 4-6 Last administered on 08/27/20at 21:50; Start 08/27/20 at 16:30; Stop 08/28/20 at 16:29; Status DC Morphine Sulfate (Morphine Sulfate) 1 mg PRN Q10MIN PRN IVP SEVERE PAIN 7-10 Last administered on 08/27/20at 22:13; Start 08/27/20 at 16:30; Stop 08/28/20 at 16:29; Status DC Ringer's Solution 1,000 ml @ 30 mls/hr Q24H IV ; Start 08/27/20 at 16:30; Stop 08/28/20 at 04:29; Status DC Hydromorphone HCl (Dilaudid) 0.5 mg PRN Q10MIN PRN IVP SEVERE PAIN 7-10, 2nd CHOICE Last administered on 08/27/20at 22:24; Start 08/27/20 at 16:30; Stop 08/28/20 at 16:29; Status DC Prochlorperazine Edisylate (Compazine) 5 mg PACU PRN PRN IVP NAUSEA, MRX1; Start 08/27/20 at 16:30; Stop 08/28/20 at 16:29; Status DC Propofol (Diprivan) 200 mg STK-MED ONCE IV ; Start 08/27/20 at 19:50; Stop 08/27/20 at 19:51; Status DC Lidocaine HCl (Lidocaine Pf 2% Vial) 5 ml STK-MED ONCE .ROUTE ; Start 08/27/20 at 19:50; Stop 08/27/20 at 19:51; Status DC Fentanyl Citrate (Fentanyl 2ml Vial) 100 mcg STK-MED ONCE .ROUTE ; Start 08/27/20 at 19:58; Stop 08/27/20 at 19:58; Status DC Ondansetron HCl (Zofran) 4 mg STK-MED ONCE .ROUTE ; Start 08/27/20 at 20:36; Stop 08/27/20 at 20:37; Status DC Dexamethasone Sodium Phosphate (Decadron) 4 mg STK-MED ONCE .ROUTE ; Start 08/27/20 at 20:36; Stop 08/27/20 at 20:37; Status DC Phenylephrine HCl (PHENYLEPHRINE in 0.9% NACL PF) 1 mg STK-MED ONCE IV ; Start 08/27/20 at 20:37; Stop 08/27/20 at 20:37; Status DC Sevoflurane (Ultane) 60 ml STK-MED ONCE IH ; Start 08/27/20 at 21:22; Stop 08/27/20 at 21:22; Status DC Fentanyl Citrate (Fentanyl 2ml Vial) 100 mcg STK-MED ONCE .ROUTE ; Start 08/27/20 at 21:45; Stop 08/27/20 at 21:45; Status DC Morphine Sulfate (Morphine Sulfate) 2 mg STK-MED ONCE .ROUTE ; Start 08/27/20 at 22:01; Stop 08/27/20 at 22:01; Status DC Hydromorphone HCl (Dilaudid) 2 mg STK-MED ONCE .ROUTE ; Start 08/27/20 at 22:21; Stop 08/27/20 at 22:21; Status DC Sodium Chloride 1,000 ml @ 75 mls/hr [id number] IV Last administered on 08/30/20at 02:38; Start 08/28/20 at 09:45 Daptomycin 410 mg/ Sodium Chloride 50 ml @ 100 mls/hr Q24H IV Last administered on 08/29/20at 13:15; Start 08/28/20 at 12:30; Stop 08/30/20 at 10:11; Status DC Piperacillin Sod/ Tazobactam Sod 3.375 gm/Sodium Chloride 50 ml @ 100 mls/hr Q6HRS IV Last administered on 08/30/20at 05:57; Start 08/28/20 at 12:00; Stop 08/30/20 at 10:11; Status DC Acetaminophen (Tylenol) 1,000 mg PRN BID PRN PO MILD PAIN / TEMP > 100.3'F Last administered on 08/30/20at 09:32; Start 08/28/20 at 14:45 Docusate Sodium (Colace) 100 mg BID PO Last administered on 08/30/20at 08:10; Start 08/28/20 at 21:00 Levothyroxine Sodium (Synthroid) 88 mcg DAILY07 PO Last administered on 08/30/20at 06:33; Start 08/29/20 at 07:00 Simvastatin (Zocor) 20 mg HS PO Last administered on 08/29/20at 21:16; Start 08/28/20 at 21:00 Tramadol HCl (Ultram) 50 mg PRN Q4HRS PRN PO MODERATE-SEVERE PAIN Last administered on 08/28/20at 15:01; Start 08/28/20 at 14:45 Vitamin D (Vitamin D3) 2,000 unit DAILY PO Last administered on 08/30/20at 08:10; Start 08/29/20 at 09:00 Non-Formulary Medication (Melatonin ) 1 tab QHS PO ; Start 08/28/20 at 21:00; Status UNV Multivitamins (Thera M Plus) 1 tab DAILY PO Last administered on 08/30/20at 08:10; Start 08/29/20 at 09:00 Pantoprazole Sodium (Protonix) 40 mg DAILYAC PO Last administered on 08/30/20at 06:33; Start 08/29/20 at 07:30 Oxybutynin Chloride (Ditropan) 5 mg [id number] PO Last administered on 08/30/20at 08:10; Start 08/28/20 at 21:00 Lactobacillus Rhamnosus (Culturelle) 1 cap BID PO Last administered on 08/30/20at 08:10; Start 08/29/20 at 21:00 Rifampin (Rifadin) 300 mg BID PO ; Start 08/30/20 at 11:00 Daptomycin 550 mg/ Sodium Chloride 50 ml @ 100 mls/hr Q24H IV ; Start 08/30/20 at 12:30 Active Scripts Active Reported Acetaminophen 500 Mg Tablet 2 Tab PO PRN BID PRN 30 Days Tramadol Hcl 50 Mg Tablet 50 Mg PO Q4HRS PRN Melatonin 5 Mg Tab.rapdis 1 Tab PO QHS 30 Days Colace (Docusate Sodium) 100 Mg Capsule 1 Cap PO BID 30 Days Vesicare (Solifenacin Succinate) 10 Mg Tablet 1 Tab PO DAILY 30 Days Levothyroxine Sodium 88 Mcg Tablet 1 Tab PO DAILY Omeprazole 20 Mg Capsule. 1 Cap PO DAILY Vitamin D3 (Cholecalciferol (Vitamin D3)) 2,000 Unit Tablet 2,000 Unit PO DAILY Once Daily (Multivitamin) 1 Each Tablet 1 Each PO DAILY Simvastatin 20 Mg Tablet 20 Mg PO HS Vitals/I & O Vital Sign - Last 24 Hours 08/29/20 08/29/20 08/29/20 08/29/20 15:00 19:00 20:00 23:00 Temp 97.9 98.8 98.6 97.9 98.8 98.6 Pulse 82 80 78 Resp 16 16 16 B/P (MAP) 135/62 (86) 117/67 (84) 127/61 (83) Pulse Ox 97 95 95 O2 Delivery Room Air Room Air Room Air Room Air 08/30/20 08/30/20 03:00 07:00 Temp 98.4 98.0 98.4 98.0 Pulse 77 73 Resp 16 18 B/P (MAP) 151/66 (94) 150/60 (90) Pulse Ox 94 96 O2 Delivery Room Air Room Air Intake and Output 08/29/20 08/29/20 08/30/20 15:00 23:00 07:00 Intake Total 50 ml 800 ml Balance 50 ml 800 ml Justicifation of Admission Dx: Justifications for Admission: Justification of Admission Dx: N/A SUNSHINE GALEAS MD Aug 30, 2020 11:19
[2020-08-30] MEDS: DAPTOmycin (GENERIC) IVPB 550 MG in IV NORMAL SALINE 50ML 50 ML IV SCH (12:25)
[2020-08-30] MEDS: riFAMpin 300 MG CAPSULE. PO SCH ×2 (12:25→20:14)
[2020-08-30 15:00] VITALS: BP 125/51
[2020-08-30 19:00] VITALS: BP 146/74
[2020-08-30] MEDS: SIMVASTATIN 20 MG TABLET PO SCH (20:15)
[2020-08-30 23:00] VITALS: BP 133/54
[2020-08-31 03:00] VITALS: BP 152/58
[2020-08-31 05:19] LABS: BASO % 1 % (0-3); EOS # 0.2 x10^3/uL (0.0-0.7); EOS % 3 % (0-3); HEMATOCRIT 28.8 % (36.0-47.0); HEMOGLOBIN 9.4 g/dL (12.0-15.5); LYMPH # 1.3 x10^3/uL (1.0-4.8); LYMPH % 23 % (24-48); MEAN CORPUSCULAR HEMOGLOBIN 31 pg (25-35); MEAN CORPUSCULAR HGB CONC 33 g/dL (31-37); MEAN CORPUSCULAR VOLUME 96 fL (79-100); MONO # 0.9 x10^3/uL (0.0-1.1); MONO % 15 % (0-9); NEUT # 3.4 x10^3/uL (1.8-7.7); NEUT % 58 % (31-73); PLATELET COUNT 213 x10^3/uL (140-400); RED BLOOD COUNT 3.01 x10^6/uL (3.50-5.40); RED CELL DISTRIBUTION WIDTH 14.4 % (11.5-14.5); WHITE BLOOD COUNT 5.9 x10^3/uL (4.0-11.0)
[2020-08-31 05:41] LABS: ALBUMIN 1.8 g/dL (3.4-5.0); ALBUMIN/GLOBULIN RATIO 0.5 (1.0-1.7); CALCIUM 8.2 mg/dL (8.5-10.1); CREATININE 0.9 mg/dL (0.6-1.0); POTASSIUM 3.8 mmol/L (3.5-5.1); TOTAL BILIRUBIN 0.9 mg/dL (0.2-1.0); TOTAL PROTEIN 5.1 g/dL (6.4-8.2)
[2020-08-31 07:10] VITALS: BP 171/69
--- NOTE | 2020-08-31 08:40 | PDOC ---
PROGRESS NOTES Date of Service: DATE: 08/31/20 TIME: 08:39 Chief Complaint Chief Complaint ASSESSMENT Right knee swelling and discharge and pain after 2 recent knee replacements. Ms. Hairston is a 89 old female periprosthetic distal femur fracture above well fixated right total knee arthroplasty with minimal bone available for distal fixation. JULY 2020 She had removal of components and placement of a distal femoral replacement with rotating hinge construct. FEVER T MAX 101.6F 6-17 SEPSIS PLAN ADMIT hold off on antibiotics until he takes the patient to surgery Postoperatively, she is going to need wound care, PT, OT and probably halfway facility. ID CONSULT BLOOD CULTURES Operative procedure: Irrigation and debridement right knee with superficial and deep cultures and retention of hardware 6-18 6-18 hold off on antibiotics until he takes the patient to surgery Postoperatively, she is going to need wound care, PT, OT and probably halfway facility. ID CONSULT BLOOD CULTURES Operative procedure: Irrigation and debridement right knee with superficial and deep cultures and retention of hardware 6-18 37 min pt exam, chart review, > 50% of time spent with exam, chart review, pt care coordination 6-19 emperic iv antibiotics Postoperatively, she is going to need wound care, PT, OT and probably halfway facility. ID CONSULT BLOOD CULTURES Operative procedure: Irrigation and debridement right knee with superficial and deep cultures and retention of hardware 6-18 38 min pt exam, chart review, > 50% of time spent with exam, chart review, pt care coordination 6-20 pain improving emperic iv antibiotics Postoperatively, wound care, PT, OT and probably halfway facility. ID CONSULT BLOOD CULTURES Operative procedure: Irrigation and debridement right knee with superficial and deep cultures and retention of hardware 618 Procedure Result GRAM STAIN Final Final GRAM POS COCCI CLUSTERS:MODERATE RBC:MANY SQUAMOUS EPI CELL:NOT APPLICABLE PMN (WBCs):MANY Unless otherwise specified, Testing Performed by: [address] [address] For Inquires, the Physician may contact the Microbiology department at [phone] ANAEROBIC-AEROBIC CULTURE Preliminary Preliminary MANY [STAPHYLOCOCCUS AUREUS (MRSA)] on 08/29/20 at 1351 STAPHYLOCOCCUS AUREUS (MRSA) ANTIMICROBIAL SUSCEPTIBILITY Preliminary Comment POS JC TYPE 38 STAPHYLOCOCCUS AUREUS (MRSA) ANTIBIOTIC RESULT INTERPRETATION AZITHROMYCIN >4 R CLINDAMYCIN <=0.25 R* CEFOXITIN SCREEN >4 POS CIPROFLOXACIN >2 R CEFTAROLINE 1 S DAPTOMYCIN 1 S ERYTHROMYCIN >4 R GENTAMICIN >8 R INDUCIBLE CLINDAMYCIN >4/0.5 POS LINEZOLID 2 S LEVOFLOXACIN >4 R OXACILLIN >2 R PENICILLIN >2 R* RIFAMPIN <=1 S TRIMETHOPRIM/SULFAMETHOXAZOLE >2/38 R TETRACYCLINE >8 R RUN DATE: 08/30/20 [facility] *LIVE* PAGE 2 RUN TIME: 913 Specimen Inquiry SPEC: [id number] PATIENT: MARIKAYONIS [id number] (Continued) Procedure Result CONTINUED ON NEXT PAGE RUN DATE: 08/30/20 [facility] *LIVE* PAGE 3 RUN TIME: 0914 Specimen Inquiry SPEC: [id number] PATIENT: YONIS HAIRSTON [id number] (Continued) SPEC #: [id number] OFE: 08/27/20 STATUS: RES REQ #: [id number] RECD: 08/28/[address]: JUDIE HUBBARD III, DO SOURCE: LEG ENTR: 08/28/[address]: [facility] De Jesus MD ORDERED: ANAER/AEROB/GS COMMENTS: R LEG SUBCUTANEOUS -------- ---- Procedure Result GRAM STAIN Final Final GRAM POS COCCI CLUSTERS:MODERATE RBC:MODERATE SQUAMOUS EPI CELL:RARE PMN (WBCs):MANY Unless otherwise specified, Testing Performed by: [address] [address] For Inquires, the Physician may contact the Microbiology department at [phone] ANAEROBIC-AEROBIC CULTURE Preliminary Preliminary MANY [STAPHYLOCOCCUS AUREUS (MRSA)] on 08/29/20 at 1351 SEE CULTURE AN663 FOR SUSCEPTIBILITY RESULTS STAPHYLOCOCCUS AUREUS (MRSA) Unless otherwise specified, Testing Performed by: [facility] [address] [place] [address] For Inquires, the Physician may contact the Microbiology department at [phone] --- --------- 36 min pt exam, chart review, > 50% of time spent with exam, chart review, pt care coordination 6-21 pain improving emperic iv antibiotics Postoperatively, wound care, PT, OT and probably halfway facility. ID CONSULT BLOOD CULTURES Operative procedure: Irrigation and debridement right knee with superficial and deep cultures and retention of hardware 18 Procedure Result GRAM STAIN Final Final GRAM POS COCCI CLUSTERS:MODERATE RBC:MANY SQUAMOUS EPI CELL:NOT APPLICABLE PMN (WBCs):MANY Unless otherwise specified, Testing Performed by: [facility] [address] [place] [address] For Inquires, the Physician may contact the Microbiology department at [phone] ANAEROBIC-AEROBIC CULTURE Preliminary Preliminary MANY [STAPHYLOCOCCUS AUREUS (MRSA)] on 06/19/21 at 1351 STAPHYLOCOCCUS AUREUS (MRSA) ANTIMICROBIAL SUSCEPTIBILITY Preliminary Comment POS JC TYPE 38 STAPHYLOCOCCUS AUREUS (MRSA) ANTIBIOTIC RESULT INTERPRETATION AZITHROMYCIN >4 R CLINDAMYCIN <=0.25 R* CEFOXITIN SCREEN >4 POS CIPROFLOXACIN >2 R CEFTAROLINE 1 S DAPTOMYCIN 1 S ERYTHROMYCIN >4 R GENTAMICIN >8 R INDUCIBLE CLINDAMYCIN >4/0.5 POS LINEZOLID 2 S LEVOFLOXACIN >4 R OXACILLIN >2 R PENICILLIN >2 R* RIFAMPIN <=1 S TRIMETHOPRIM/SULFAMETHOXAZOLE >2/38 R TETRACYCLINE >8 R RUN DATE: 08/30/20 [facility] *LIVE* PAGE 2 RUN TIME: 913 Specimen Inquiry SPEC: [id number] PATIENT: YONIS HAIRSTON [id number] (Continued) ----- ------- Procedure Result CONTINUED ON NEXT PAGE RUN DATE: 08/30/20 [facility] *LIVE* PAGE 3 RUN TIME: 913 Specimen Inquiry SPEC: [id number] PATIENT: YONIS HAIRSTON [id number] (Continued) SPEC #: [id number] OFE: 08/27/20 STATUS: RES REQ #: [id number] RECD: 08/28/[address]: JUDIE HUBBARD III, DO SOURCE: LEG ENTR: 08/28/[address]: YAN RIOS MD [facility]: WOUND PULS,[place] De Jesus MD ORDERED: ANAER/AERERIC/GS COMMENTS: R LEG SUBCUTANEOUS Procedure Result GRAM STAIN Final Final GRAM POS COCCI CLUSTERS:MODERATE RBC:MODERATE SQUAMOUS EPI CELL:RARE PMN (WBCs):MANY Unless otherwise specified, Testing Performed by: [address] [address] For Inquires, the Physician may contact the Microbiology department at [phone] ANAEROBIC-AEROBIC CULTURE Preliminary Preliminary MANY [STAPHYLOCOCCUS AUREUS (MRSA)] on 08/29/20 at 1351 SEE CULTURE AN663 FOR SUSCEPTIBILITY RESULTS STAPHYLOCOCCUS AUREUS (MRSA) Unless otherwise specified, Testing Performed by: [address] [address] For Inquires, the Physician may contact the Microbiology department at [phone] 26 min pt exam, chart review, > 50% of time spent with exam, chart review, pt care coordination Cont Daptomycin higher dose 10mg/kg daily (08/30) and Rifampin ( 08/30). Avoid IV vancomycin due to BERHANE . monitor CK closely Follow up labs and cultures. 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 History of Present Illness History of Present Illness ADMIT DATE: 08/27/2020 CHIEF COMPLAINT: Right knee swelling, pain, discharge. HISTORY OF PRESENT ILLNESS: The patient is a pleasant 89-year-old female who underwent a right knee replacement with Dr. Rossi on 07/21 last month. She was doing relatively well, but then she fell and refractured the knee. I spoke with Dr. Rossi about the procedure. He had to go back in and put in a complex rotating hinge as she did not have much bone left above the previous knee replacement. Postoperatively, she was sent to [place] for rehabilitation. She was doing relatively well once again, but then started having some drainage. Dr. Rossi requested that she be put on a wound VAC. Apparently, the wound VAC situation was not helping much. Dr. Rossi states that it probably was not put on properly. Nevertheless, the patient came to our ER today with more drainage and some swelling and pain. Dr. Rossi called Dr. Cortes and had him do an arthrocentesis. The patient is now being examined on the medical floor, where she is getting ready to go to surgery here in a few minutes. PAST MEDICAL HISTORY: The above-mentioned complex knee replacement twice; arthritis; GERD; hyperlipidemia; hypertension; thyroid surgery; overactive bladder; partial hysterectomy, right; multiple hernia repairs. ALLERGIES: PREDNISONE AND CARAFATE. FAMILY HISTORY: Diabetes. SOCIAL HISTORY: She does not drink, smoke or take drugs. She is retired; has 3 children, one of her daughters is here, she seems to be a very good support for her. MEDICATIONS: Reviewed. Please refer to the MRAD. REVIEW OF SYSTEMS: GENERAL: No history of weight change, weakness or fevers. SKIN: No bruising, hair changes or rashes. EYES: No blurred, double or loss of vision. NOSE AND THROAT: No history of nosebleeds, hoarseness or sore throat. HEART: No history of palpitations, chest pain or shortness of breath on exertion. LUNGS: Denies cough, hemoptysis, wheezing or shortness of breath. GASTROINTESTINAL: Denies changes in appetite, nausea, vomiting, diarrhea or constipation. GENITOURINARY: No history of frequency, urgency, hesitancy or nocturia. NEUROLOGIC: Denies history of numbness, tingling, tremor or weakness. PSYCHIATRIC: No history of panic, anxiety or depression. ENDOCRINE: No history of heat or cold intolerance, polyuria or polydipsia. EXTREMITIES: She complains of right knee pain. Vitals Vitals Vital Signs Date Time Temp Pulse Resp B/P (MAP) Pulse Ox O2 Delivery O2 Flow Rate FiO2 08/31/20 07:10 98.5 77 18 171/69 (103) 97 Room Air 98.5 Physical Exam Physical Exam GENERAL: Alert, oriented x 3, pleasant female, lying in bed comfortably, in no acute distress. HEENT: Normocephalic, atraumatic. Anicteric. NECK: Supple. No JVD. LUNGS: Clear bilaterally. No wheezing. HEART: S1, S2. No gallops or murmurs. ABDOMEN: Soft, obese, nontender, nondistended. EXTREMITIES: Right lower extremity swelling present. Wound VAC in place. Minimal warmth. No surrounding erythema noted. NEUROLOGIC: Alert, oriented x 3, grossly nonfocal. PSYCHIATRIC: Calm and cooperative. DERMATOLOGIC: Warm, dry, no generalized rash. PIV looks clean. General: Alert, Cooperative, No acute distress Heart: Regular rate Lungs: Clear Abdomen: Normal bowel sounds, Soft Extremities: No cyanosis Labs LABS Laboratory Tests Test 08/31/20 03:50 White Blood Count 5.9 x10^3/uL (4.0-11.0) Red Blood Count 3.01 x10^6/uL (3.50-5.40) Hemoglobin 9.4 g/dL (12.0-15.5) Hematocrit 28.8 % (36.0-47.0) Mean Corpuscular Volume 96 fL (79-100) Mean Corpuscular Hemoglobin 31 pg (25-35) Mean Corpuscular Hemoglobin Concent 33 g/dL (31-37) Red Cell Distribution Width 14.4 % (11.5-14.5) Platelet Count 213 x10^3/uL (140-400) Neutrophils (%) (Auto) 58 % (31-73) Lymphocytes (%) (Auto) 23 % (24-48) Monocytes (%) (Auto) 15 % (0-9) Eosinophils (%) (Auto) 3 % (0-3) Basophils (%) (Auto) 1 % (0-3) Neutrophils # (Auto) 3.4 x10^3/uL (1.8-7.7) Lymphocytes # (Auto) 1.3 x10^3/uL (1.0-4.8) Monocytes # (Auto) 0.9 x10^3/uL (0.0-1.1) Eosinophils # (Auto) 0.2 x10^3/uL (0.0-0.7) Basophils # (Auto) 0.0 x10^3/uL (0.0-0.2) Sodium Level 145 mmol/L (136-145) Potassium Level 3.8 mmol/L (3.5-5.1) Chloride Level 111 mmol/L (98-107) Carbon Dioxide Level 28 mmol/L (21-32) Anion Gap 6 (6-14) Blood Urea Nitrogen 10 mg/dL (7-20) Creatinine 0.9 mg/dL (0.6-1.0) Estimated GFR (Cockcroft-Gault) 59.0 BUN/Creatinine Ratio 11 (6-20) Glucose Level 93 mg/dL (70-99) Calcium Level 8.2 mg/dL (8.5-10.1) Total Bilirubin 0.9 mg/dL (0.2-1.0) Aspartate Amino Transf (AST/SGOT) 16 U/L (15-37) Alanine Aminotransferase (ALT/SGPT) 15 U/L (14-59) Alkaline Phosphatase 125 U/L (46-116) Creatine Kinase 9 U/L (26-192) Total Protein 5.1 g/dL (6.4-8.2) Albumin 1.8 g/dL (3.4-5.0) Albumin/Globulin Ratio 0.5 (1.0-1.7) Assessment and Plan Assessmemt and Plan Problems Medical Problems: (1) Cellulitis Status: Acute Comment Review of Relevant I have reviewed the following items fiorella (where applicable) has been applied. Labs Laboratory Tests Test 08/31/20 03:50 White Blood Count 5.9 x10^3/uL (4.0-11.0) Red Blood Count 3.01 x10^6/uL (3.50-5.40) Hemoglobin 9.4 g/dL (12.0-15.5) Hematocrit 28.8 % (36.0-47.0) Mean Corpuscular Volume 96 fL (79-100) Mean Corpuscular Hemoglobin 31 pg (25-35) Mean Corpuscular Hemoglobin Concent 33 g/dL (31-37) Red Cell Distribution Width 14.4 % (11.5-14.5) Platelet Count 213 x10^3/uL (140-400) Neutrophils (%) (Auto) 58 % (31-73) Lymphocytes (%) (Auto) 23 % (24-48) Monocytes (%) (Auto) 15 % (0-9) Eosinophils (%) (Auto) 3 % (0-3) Basophils (%) (Auto) 1 % (0-3) Neutrophils # (Auto) 3.4 x10^3/uL (1.8-7.7) Lymphocytes # (Auto) 1.3 x10^3/uL (1.0-4.8) Monocytes # (Auto) 0.9 x10^3/uL (0.0-1.1) Eosinophils # (Auto) 0.2 x10^3/uL (0.0-0.7) Basophils # (Auto) 0.0 x10^3/uL (0.0-0.2) Sodium Level 145 mmol/L (136-145) Potassium Level 3.8 mmol/L (3.5-5.1) Chloride Level 111 mmol/L (98-107) Carbon Dioxide Level 28 mmol/L (21-32) Anion Gap 6 (6-14) Blood Urea Nitrogen 10 mg/dL (7-20) Creatinine 0.9 mg/dL (0.6-1.0) Estimated GFR (Cockcroft-Gault) 59.0 BUN/Creatinine Ratio 11 (6-20) Glucose Level 93 mg/dL (70-99) Calcium Level 8.2 mg/dL (8.5-10.1) Total Bilirubin 0.9 mg/dL (0.2-1.0) Aspartate Amino Transf (AST/SGOT) 16 U/L (15-37) Alanine Aminotransferase (ALT/SGPT) 15 U/L (14-59) Alkaline Phosphatase 125 U/L (46-116) Creatine Kinase 9 U/L (26-192) Total Protein 5.1 g/dL (6.4-8.2) Albumin 1.8 g/dL (3.4-5.0) Albumin/Globulin Ratio 0.5 (1.0-1.7) Laboratory Tests Test 08/31/20 03:50 White Blood Count 5.9 x10^3/uL (4.0-11.0) Red Blood Count 3.01 x10^6/uL (3.50-5.40) Hemoglobin 9.4 g/dL (12.0-15.5) Hematocrit 28.8 % (36.0-47.0) Mean Corpuscular Volume 96 fL (79-100) Mean Corpuscular Hemoglobin 31 pg (25-35) Mean Corpuscular Hemoglobin Concent 33 g/dL (31-37) Red Cell Distribution Width 14.4 % (11.5-14.5) Platelet Count 213 x10^3/uL (140-400) Neutrophils (%) (Auto) 58 % (31-73) Lymphocytes (%) (Auto) 23 % (24-48) Monocytes (%) (Auto) 15 % (0-9) Eosinophils (%) (Auto) 3 % (0-3) Basophils (%) (Auto) 1 % (0-3) Neutrophils # (Auto) 3.4 x10^3/uL (1.8-7.7) Lymphocytes # (Auto) 1.3 x10^3/uL (1.0-4.8) Monocytes # (Auto) 0.9 x10^3/uL (0.0-1.1) Eosinophils # (Auto) 0.2 x10^3/uL (0.0-0.7) Basophils # (Auto) 0.0 x10^3/uL (0.0-0.2) Sodium Level 145 mmol/L (136-145) Potassium Level 3.8 mmol/L (3.5-5.1) Chloride Level 111 mmol/L (98-107) Carbon Dioxide Level 28 mmol/L (21-32) Anion Gap 6 (6-14) Blood Urea Nitrogen 10 mg/dL (7-20) Creatinine 0.9 mg/dL (0.6-1.0) Estimated GFR (Cockcroft-Gault) 59.0 BUN/Creatinine Ratio 11 (6-20) Glucose Level 93 mg/dL (70-99) Calcium Level 8.2 mg/dL (8.5-10.1) Total Bilirubin 0.9 mg/dL (0.2-1.0) Aspartate Amino Transf (AST/SGOT) 16 U/L (15-37) Alanine Aminotransferase (ALT/SGPT) 15 U/L (14-59) Alkaline Phosphatase 125 U/L (46-116) Creatine Kinase 9 U/L (26-192) Total Protein 5.1 g/dL (6.4-8.2) Albumin 1.8 g/dL (3.4-5.0) Albumin/Globulin Ratio 0.5 (1.0-1.7) Microbiology 08/27/20 Gram Stain - Final, Resulted 08/27/20 Aerobic and Anaerobic Culture - Preliminary, Resulted 08/27/20 Antimicrobic Susceptibility - Preliminary, Resulted 08/27/20 AFB Specimen Processing Tissue - Final, Resulted 08/27/20 Acid Fast Bacilli Culture, Resulted Pending 08/27/20 Gram Stain - Final, Resulted 08/27/20 Fungal Culture, Resulted Pending 08/27/20 Fungal Culture Result 1, Resulted Pending 08/27/20 Blood Culture - Preliminary, Resulted NO GROWTH AFTER 3 DAYS Medications Current Medications Vancomycin HCl 1 gm/Sodium Chloride 250 ml @ 166.667 mls/hr 1X ONCE IV ; Start 08/27/20 at 14:00; Stop 08/27/20 at 14:04; Status DC Vancomycin HCl 1.75 gm/Sodium Chloride 500 ml @ 250 mls/hr 1X ONCE IV Last administered on 08/27/20at 15:13; Start 08/27/20 at 14:30; Stop 08/27/20 at 16:29; Status DC Sodium Chloride 1,000 ml @ 1,000 mls/hr 1X ONCE IV Last administered on 08/27/20at 15:12; Start 08/27/20 at 14:15; Stop 08/27/20 at 15:14; Status DC Fentanyl Citrate (Fentanyl 2ml Vial) 25 mcg PRN Q5MIN PRN IVP MILD PAIN 1-3; Start 08/27/20 at 16:30; Stop 08/28/20 at 16:29; Status DC Fentanyl Citrate (Fentanyl 2ml Vial) 50 mcg PRN Q5MIN PRN IVP MODERATE PAIN 4-6 Last administered on 08/27/20at 21:50; Start 08/27/20 at 16:30; Stop 08/28/20 at 16:29; Status DC Morphine Sulfate (Morphine Sulfate) 1 mg PRN Q10MIN PRN IVP SEVERE PAIN 7-10 Last administered on 08/27/20at 22:13; Start 08/27/20 at 16:30; Stop 08/28/20 at 16:29; Status DC Ringer's Solution 1,000 ml @ 30 mls/hr Q24H IV ; Start 08/27/20 at 16:30; Stop 08/28/20 at 04:29; Status DC Hydromorphone HCl (Dilaudid) 0.5 mg PRN Q10MIN PRN IVP SEVERE PAIN 7-10, 2nd CHOICE Last administered on 08/27/20at 22:24; Start 08/27/20 at 16:30; Stop 08/28/20 at 16:29; Status DC Prochlorperazine Edisylate (Compazine) 5 mg PACU PRN PRN IVP NAUSEA, MRX1; Start 08/27/20 at 16:30; Stop 08/28/20 at 16:29; Status DC Propofol (Diprivan) 200 mg STK-MED ONCE IV ; Start 08/27/20 at 19:50; Stop 08/27/20 at 19:51; Status DC Lidocaine HCl (Lidocaine Pf 2% Vial) 5 ml STK-MED ONCE .ROUTE ; Start 08/27/20 at 19:50; Stop 08/27/20 at 19:51; Status DC Fentanyl Citrate (Fentanyl 2ml Vial) 100 mcg STK-MED ONCE .ROUTE ; Start 08/27/20 at 19:58; Stop 08/27/20 at 19:58; Status DC Ondansetron HCl (Zofran) 4 mg STK-MED ONCE .ROUTE ; Start 08/27/20 at 20:36; Stop 08/27/20 at 20:37; Status DC Dexamethasone Sodium Phosphate (Decadron) 4 mg STK-MED ONCE .ROUTE ; Start 08/27/20 at 20:36; Stop 08/27/20 at 20:37; Status DC Phenylephrine HCl (PHENYLEPHRINE in 0.9% NACL PF) 1 mg STK-MED ONCE IV ; Start 08/27/20 at 20:37; Stop 08/27/20 at 20:37; Status DC Sevoflurane (Ultane) 60 ml STK-MED ONCE IH ; Start 08/27/20 at 21:22; Stop 08/27/20 at 21:22; Status DC Fentanyl Citrate (Fentanyl 2ml Vial) 100 mcg STK-MED ONCE .ROUTE ; Start 08/27/20 at 21:45; Stop 08/27/20 at 21:45; Status DC Morphine Sulfate (Morphine Sulfate) 2 mg STK-MED ONCE .ROUTE ; Start 08/27/20 at 22:01; Stop 08/27/20 at 22:01; Status DC Hydromorphone HCl (Dilaudid) 2 mg STK-MED ONCE .ROUTE ; Start 08/27/20 at 22:21; Stop 08/27/20 at 22:21; Status DC Sodium Chloride 1,000 ml @ 75 mls/hr [id number] IV Last administered on 08/30/20at 02:38; Start 08/28/20 at 09:45; Stop 08/30/20 at 15:48; Status DC Daptomycin 410 mg/ Sodium Chloride 50 ml @ 100 mls/hr Q24H IV Last administered on 08/29/20at 13:15; Start 08/28/20 at 12:30; Stop 08/30/20 at 10:11; Status DC Piperacillin Sod/ Tazobactam Sod 3.375 gm/Sodium Chloride 50 ml @ 100 mls/hr Q6HRS IV Last administered on 08/30/20at 05:57; Start 08/28/20 at 12:00; Stop 08/30/20 at 10:11; Status DC Acetaminophen (Tylenol) 1,000 mg PRN BID PRN PO MILD PAIN / TEMP > 100.3'F Last administered on 08/30/20at 21:28; Start 08/28/20 at 14:45 Docusate Sodium (Colace) 100 mg BID PO Last administered on 08/30/20at 20:15; Start 08/28/20 at 21:00 Levothyroxine Sodium (Synthroid) 88 mcg DAILY07 PO Last administered on 08/30/20at 06:33; Start 08/29/20 at 07:00 Simvastatin (Zocor) 20 mg HS PO Last administered on 08/30/20at 20:15; Start 08/28/20 at 21:00 Tramadol HCl (Ultram) 50 mg PRN Q4HRS PRN PO MODERATE-SEVERE PAIN Last administered on 08/28/20at 15:01; Start 08/28/20 at 14:45 Vitamin D (Vitamin D3) 2,000 unit DAILY PO Last administered on 08/30/20at 08:10; Start 08/29/20 at 09:00 Non-Formulary Medication (Melatonin ) 1 tab QHS PO ; Start 08/28/20 at 21:00; Status UNV Multivitamins (Thera M Plus) 1 tab DAILY PO Last administered on 08/30/20at 08:10; Start 08/29/20 at 09:00 Pantoprazole Sodium (Protonix) 40 mg DAILYAC PO Last administered on 08/30/20at 06:33; Start 08/29/20 at 07:30 Oxybutynin Chloride (Ditropan) 5 mg [id number] PO Last administered on 08/30/20at 20:14; Start 08/28/20 at 21:00 Lactobacillus Rhamnosus (Culturelle) 1 cap BID PO Last administered on 08/30/20at 20:15; Start 08/29/20 at 21:00 Rifampin (Rifadin) 300 mg BID PO Last administered on 08/30/20at 20:14; Start 08/30/20 at 11:00 Daptomycin 550 mg/ Sodium Chloride 50 ml @ 100 mls/hr Q24H IV Last administered on 08/30/20at 12:25; Start 08/30/20 at 12:30 Active Scripts Active Reported Acetaminophen 500 Mg Tablet 2 Tab PO PRN BID PRN 30 Days Tramadol Hcl 50 Mg Tablet 50 Mg PO Q4HRS PRN Melatonin 5 Mg Tab.rapdis 1 Tab PO QHS 30 Days Colace (Docusate Sodium) 100 Mg Capsule 1 Cap PO BID 30 Days Vesicare (Solifenacin Succinate) 10 Mg Tablet 1 Tab PO DAILY 30 Days Levothyroxine Sodium 88 Mcg Tablet 1 Tab PO DAILY Omeprazole 20 Mg Capsule.dr 1 Cap PO DAILY Vitamin D3 (Cholecalciferol (Vitamin D3)) 2,000 Unit Tablet 2,000 Unit PO DAILY Once Daily (Multivitamin) 1 Each Tablet 1 Each PO DAILY Simvastatin 20 Mg Tablet 20 Mg PO HS Vitals/I & O Vital Sign - Last 24 Hours 08/30/20 08/30/20 08/30/20 08/30/20 11:00 15:00 19:00 20:00 Temp 98.6 98.0 98.8 98.6 98.0 98.8 Pulse 74 70 89 Resp 18 18 18 B/P (MAP) 153/70 (97) 125/51 (75) 146/74 (98) Pulse Ox 96 98 96 O2 Delivery Room Air Room Air Room Air Room Air 08/30/20 08/31/20 08/31/20 23:00 03:00 07:10 Temp 98.9 98.5 98.9 98.5 Pulse 79 74 77 Resp 18 18 18 B/P (MAP) 133/54 (80) 152/58 (89) 171/69 (103) Pulse Ox 93 95 97 O2 Delivery Room Air Room Air Room Air Intake and Output 08/30/20 08/30/20 08/31/20 15:00 23:00 07:00 Intake Total 50 ml 350 ml Output Total 1 ml Balance 50 ml 350 ml -1 ml Justicifation of Admission Dx: Justifications for Admission: Justification of Admission Dx: N/A SUNSHINE GALEAS MD Aug 31, 2020 08:39
--- NOTE | 2020-08-31 08:40 | PDOC ---
Infectious Disease Note Subjective: Subjective Patient's postop site pain is under control Swelling at the inferior aspect of the incision site which started yesterday and is not improving Denies fever, nausea, vomiting, shortness of breath, diarrhea, abdominal pain, rash Otherwise as above Vital Signs: Vital Signs Vital Signs Date Time Temp Pulse Resp B/P (MAP) Pulse Ox O2 Delivery O2 Flow Rate FiO2 08/31/20 07:10 98.5 77 18 171/69 (103) 97 Room Air 98.5 Physical Exam: PHYSICAL EXAM GENERAL: Alert, oriented x 3, pleasant female, lying in bed comfortably, in no acute distress. HEENT: Normocephalic, atraumatic. Anicteric. NECK: Supple. No JVD. LUNGS: Clear bilaterally. No wheezing. HEART: S1, S2. No gallops or murmurs. ABDOMEN: Soft, obese, nontender, nondistended. EXTREMITIES: Right lower extremity swelling present. Wound VAC in place. Minimal warmth. No surrounding erythema noted. Distal aspect of wound has swelling which appears to be a developing hematoma NEUROLOGIC: Alert, oriented x 3, grossly nonfocal. PSYCHIATRIC: Calm and cooperative. DERMATOLOGIC: Warm, dry, no generalized rash. PIV looks clean. Medications: Inpatient Meds: Medications reviewed. Labs: Lab Laboratory Tests Test 08/31/20 03:50 White Blood Count 5.9 x10^3/uL (4.0-11.0) Red Blood Count 3.01 x10^6/uL (3.50-5.40) Hemoglobin 9.4 g/dL (12.0-15.5) Hematocrit 28.8 % (36.0-47.0) Mean Corpuscular Volume 96 fL (79-100) Mean Corpuscular Hemoglobin 31 pg (25-35) Mean Corpuscular Hemoglobin Concent 33 g/dL (31-37) Red Cell Distribution Width 14.4 % (11.5-14.5) Platelet Count 213 x10^3/uL (140-400) Neutrophils (%) (Auto) 58 % (31-73) Lymphocytes (%) (Auto) 23 % (24-48) Monocytes (%) (Auto) 15 % (0-9) Eosinophils (%) (Auto) 3 % (0-3) Basophils (%) (Auto) 1 % (0-3) Neutrophils # (Auto) 3.4 x10^3/uL (1.8-7.7) Lymphocytes # (Auto) 1.3 x10^3/uL (1.0-4.8) Monocytes # (Auto) 0.9 x10^3/uL (0.0-1.1) Eosinophils # (Auto) 0.2 x10^3/uL (0.0-0.7) Basophils # (Auto) 0.0 x10^3/uL (0.0-0.2) Sodium Level 145 mmol/L (136-145) Potassium Level 3.8 mmol/L (3.5-5.1) Chloride Level 111 mmol/L (98-107) Carbon Dioxide Level 28 mmol/L (21-32) Anion Gap 6 (6-14) Blood Urea Nitrogen 10 mg/dL (7-20) Creatinine 0.9 mg/dL (0.6-1.0) Estimated GFR (Cockcroft-Gault) 59.0 BUN/Creatinine Ratio 11 (6-20) Glucose Level 93 mg/dL (70-99) Calcium Level 8.2 mg/dL (8.5-10.1) Total Bilirubin 0.9 mg/dL (0.2-1.0) Aspartate Amino Transf (AST/SGOT) 16 U/L (15-37) Alanine Aminotransferase (ALT/SGPT) 15 U/L (14-59) Alkaline Phosphatase 125 U/L (46-116) Creatine Kinase 9 U/L (26-192) Total Protein 5.1 g/dL (6.4-8.2) Albumin 1.8 g/dL (3.4-5.0) Albumin/Globulin Ratio 0.5 (1.0-1.7) Micro RUN DATE: 08/30/20 [facility] *LIVE* PAGE 1 RUN TIME: 913 Specimen Inquiry PATIENT: YONIS HAIRSTON ACCT: [id number] LOC: [address] [place] [address] U: [id number] AGE/SX: 89/F ROOM: 404 RE08/27/[address]: JUDIE HUBBARD III, DO : 1930 BED: 1 DIS: STATUS: ADM IN TLOC: SPEC #: [id number] OFE: 08/27/20 STATUS: RES REQ #: [id number] RECD: 08/28/[address]: JUDIE HUBBARD III, DO SOURCE: KNEE ENTR: 08/28/20-[address]: YAN RIOS MD SPDC: BEVERLY PERRY MD ORDERED: SHAHEEN/CHAI/KARI COMMENTS: R KNEE JOINT FLUID Procedure Result GRAM STAIN Final Final GRAM POS COCCI CLUSTERS:MODERATE RBC:MANY SQUAMOUS EPI CELL:NOT APPLICABLE PMN (WBCs):MANY Unless otherwise specified, Testing Performed by: [address] [address] For Inquires, the Physician may contact the Microbiology department at [phone] ANAEROBIC-AEROBIC CULTURE Preliminary Preliminary MANY [STAPHYLOCOCCUS AUREUS (MRSA)] on 08/29/20 at 1351 STAPHYLOCOCCUS AUREUS (MRSA) ANTIMICROBIAL SUSCEPTIBILITY Preliminary Comment POS JC TYPE 38 STAPHYLOCOCCUS AUREUS (MRSA) ANTIBIOTIC RESULT INTERPRETATION AZITHROMYCIN >4 R CLINDAMYCIN <=0.25 R* CEFOXITIN SCREEN >4 POS CIPROFLOXACIN >2 R CEFTAROLINE 1 S DAPTOMYCIN 1 S ERYTHROMYCIN >4 R GENTAMICIN >8 R INDUCIBLE CLINDAMYCIN >4/0.5 POS LINEZOLID 2 S LEVOFLOXACIN >4 R OXACILLIN >2 R PENICILLIN >2 R* RIFAMPIN <=1 S TRIMETHOPRIM/SULFAMETHOXAZOLE >2/38 R TETRACYCLINE >8 R RUN DATE: 08/30/20 [facility] *LIVE* PAGE 2 RUN TIME: 913 Specimen Inquiry -- SPEC: [id number] PATIENT: YONIS HAIRSTON [id number] (Continued) Procedure Result CONTINUED ON NEXT PAGE RUN DATE: 08/30/20 [facility] *LIVE* PAGE 3 RUN TIME: 0914 Specimen Inquiry SPEC: [id number] PATIENT: YONIS HAIRSTON [id number] (Continued) Procedure Result ANTIMICROBIAL SUSCEPTIBILITY Preliminary (continued) VANCOMYCIN 1 S Unless otherwise specified, Testing Performed by: [address] [address] For Inquires, the Physician may contact the Microbiology department at [phone] Objective: Assessment: MRSA Complicated RT Knee arthroplasty infection ( R to bactrim and Doxycycline, S to Rifampin) 1.. Right knee postop site drainage,hematoma with infection Status post synovial aspirate on 08/27/2020, WBC 2100, RBC 102,000, 98%PMNs. Cult MRSA 2. MRSA Right knee periprosthetic joint infection. S/P Irrigation and debridement right knee with superficial and deep cultures and retention of hardware Jt Fluid cultures done per DR Rossi + MRSA Subcut tissue cult positive for MRSA 3. Fever 4. 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 5. Supracondylar fracture just above the knee joint 6. Status post removal of the components and placement of distal femoral replacement with a rotating hinge construct for periprosthetic distal femur fracture above well-fixated right total knee arthroplasty, 08/01/2020. 7. 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 8. Degenerative joint disease. 9. Bandemia. 10. Lactic acidosis. 11. Hypertension/hyperlipidemia. 12. History of chronic kidney disease. Plan: Plan of Care Hematoma management per orthopedics 1. Cont Daptomycin higher dose 10mg/kg daily (08/30) and Rifampin ( 08/30). Avoid IV vancomycin due to BERHANE . Side effects of antibiotics discussed at length, monitor CK closely 2. Follow up labs and cultures. 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 Discussed with micro lab 3. Due to MRSA on cultures,pt would need hardware explant It is a difficult situation as there are no oral chronic suppressive agents available after completion of IV antibiotics and Antibiotic alone may not be optimal especially for MRSA prosthetic joint infection 4. Monitor labs and cultures. 5. Despite aggressive medical management patient is at high risk of limb loss 6 Wound /VAC care as directed by Orthopedics. 7. PT and OT as directed 8. Continue supportive care. Discussed with patient's daughters at bedside today at length again All questions answered Discussed with nursing staff INES RIOS MD Aug 31, 2020 08:40
[2020-08-31] MEDS: MULTIVITAMIN with MINERAL TABLET. PO SCH (10:01)
[2020-08-31] MEDS: CHOLECALCIFEROL (VITAMIN D3) 1,000 UNIT TABLET PO SCH (10:01)
[2020-08-31] MEDS: DOCUSATE SODIUM 100 MG CAPSULE. PO SCH ×2 (10:01→21:52)
[2020-08-31] MEDS: OXYBUTYNIN CHLORIDE 5 MG TABLET PO SCH ×3 (10:01→21:52)
[2020-08-31] MEDS: PANTOPRAZOLE 40 MG TABLET.DR. PO SCH (10:01)
[2020-08-31] MEDS: LACTOBACILLUS RHAMNOSUS GG 1 CAPSULE. PO SCH ×2 (10:01→21:52)
[2020-08-31] MEDS: riFAMpin 300 MG CAPSULE. PO SCH ×2 (10:02→21:52)
[2020-08-31] MEDS: LEVOTHYROXINE 88 MCG TABLET PO SCH (10:05)
[2020-08-31 10:23] VITALS: BP 121/59
--- NOTE | 2020-08-31 10:30 | NUR ---
Dr. Rossi paged overhead and office notified that Dr. Acevedo would like to speak with him. daughters at bedside and would like to see him too. They are concerned about a spot upper blevins that is ecchymotic soft to touch but tender that is upper blevins area but below wound vac
--- NOTE | 2020-08-31 11:08 | NUR ---
[facility]OLA following. Discussed with RN. LOLA spoke with pt's daughter late Monday afternoon - they would like referral faxed to [facility]. LOLA phoned and faxed referral sans OT note as OT was not ordered until this morning. [facility] advised they may have a bed on Monday (09/02/20). Awaiting acceptance decision and insurance auth. LOLA will continue to follow.
[2020-08-31] MEDS: DAPTOmycin (GENERIC) IVPB 550 MG in IV NORMAL SALINE 50ML 50 ML IV SCH (11:57)
[2020-08-31] MEDS: ACETAMINOPHEN 500 MG TABLET PO PRN (11:58)
--- NOTE | 2020-08-31 12:30 | NUR ---
was up with therapy and the soft ecchymotic area broke open and had copious amount of drainage that is purulent. cleansed with chlor pep the Xeroform 4x4 (10) then wrapped with Kerlix. medicated with Tylenol.
--- NOTE | 2020-08-31 14:00 | NUR ---
dressing the drainage area saturated. up in recliner. bathed and new dressing applied cleansed and redressed as previously
[2020-08-31 14:38] VITALS: BP 120/58
--- NOTE | 2020-08-31 16:30 | NUR ---
wound clinic here and informed about new area of drainage. request Dr. Rossi--office called and informed.
--- NOTE | 2020-08-31 17:00 | NUR ---
Dr. Rossi's office returned call and stated that he would be here after clinic. up to the bathroom and dressing that wound clinic clinic applied fell off. cleansed with chlor prep 4x4's (20) then wrapped with kerlix then medi data control clerk applied
--- NOTE | 2020-08-31 18:07 | NUR ---
Wound Care Wound care called to check vac for leak as it was draining down pt leg. Pt has open area distal to surgical incision that is draining purulent drainage that has seeped under vac dressing and compromised seal and cleanliness of surgical incision vac. Vac dressing removed and copious amount of serosanguineous drainage came from proximal surgical incision. Surgeon paged by Yudith CAT to come assess incision, he will be by after clinic today. Dressed with Aquacel ag, abd and kerlix until he can see it.
[2020-08-31 19:00] VITALS: BP 155/54
[2020-08-31] MEDS: SIMVASTATIN 20 MG TABLET PO SCH (21:53)
[2020-08-31 22:53] VITALS: BP 143/52
[2020-09-01] MEDS: ACETAMINOPHEN 500 MG TABLET PO PRN ×2 (01:04→11:46)
[2020-09-01 02:57] VITALS: BP 154/71
[2020-09-01] MEDS: OXYBUTYNIN CHLORIDE 5 MG TABLET PO SCH ×3 (06:41→21:22)
[2020-09-01] MEDS: LEVOTHYROXINE 88 MCG TABLET PO SCH (06:41)
[2020-09-01 07:00] VITALS: BP 143/83
--- NOTE | 2020-09-01 08:59 | PDOC ---
Infectious Disease Note Subjective: Subjective Patient had bleeding from postop wound yesterday Denies fever, nausea, vomiting, shortness of breath, diarrhea, abdominal pain, rash Otherwise as above Vital Signs: Vital Signs Vital Signs Date Time Temp Pulse Resp B/P (MAP) Pulse Ox O2 Delivery O2 Flow Rate FiO2 09/01/20 07:00 98.1 75 17 143/83 (103) 95 Room Air 98.1 Physical Exam: PHYSICAL EXAM GENERAL: Alert, oriented x 3, pleasant female, lying in bed comfortably, in no acute distress. HEENT: Normocephalic, atraumatic. Anicteric. NECK: Supple. No JVD. LUNGS: Clear bilaterally. No wheezing. HEART: S1, S2. No gallops or murmurs. ABDOMEN: Soft, obese, nontender, nondistended. EXTREMITIES: Right lower extremity swelling present. Wound VAC in place. Minimal warmth. No surrounding erythema noted. Distal aspect of wound has swelling which appears to be a developing hematoma NEUROLOGIC: Alert, oriented x 3, grossly nonfocal. PSYCHIATRIC: Calm and cooperative. DERMATOLOGIC: Warm, dry, no generalized rash. PIV looks clean. Medications: Inpatient Meds: Medications reviewed. Labs: Micro RUN DATE: 08/30/20 [facility] *LIVE* PAGE 1 RUN TIME: 913 Specimen Inquiry PATIENT: YONIS HAIRSTON ACCT: [id number] LOC: [address] [place] [address] U: [id number] AGE/SX: 89/F ROOM: [facility] RE08/27/[address]: JUDIE HUBBARD III, DO : 1930 BED: 1 DIS: STATUS: ADM IN TLOC: SPEC #: [id number] OFE: 08/27/20 STATUS: RES REQ #: [id number] RECD: 08/28/[address]: JUDIE HUBBARD III, DO SOURCE: KNEE ENTR: 08/28/[address]: YAN RIOS MD SPDESC: BEVERLY PERRY MD ORDERED: ANAER/AEROB/GS COMMENTS: R KNEE JOINT FLUID ---- -------- Procedure Result GRAM STAIN Final Final GRAM POS COCCI CLUSTERS:MODERATE RBC:MANY SQUAMOUS EPI CELL:NOT APPLICABLE PMN (WBCs):MANY Unless otherwise specified, Testing Performed by: [address] [address] For Inquires, the Physician may contact the Microbiology department at [phone] ANAEROBIC-AEROBIC CULTURE Preliminary Preliminary MANY [STAPHYLOCOCCUS AUREUS (MRSA)] on 08/29/20 at 1351 STAPHYLOCOCCUS AUREUS (MRSA) ANTIMICROBIAL SUSCEPTIBILITY Preliminary Comment POS JC TYPE 38 STAPHYLOCOCCUS AUREUS (MRSA) ANTIBIOTIC RESULT INTERPRETATION AZITHROMYCIN >4 R CLINDAMYCIN <=0.25 R* CEFOXITIN SCREEN >4 POS CIPROFLOXACIN >2 R CEFTAROLINE 1 S DAPTOMYCIN 1 S ERYTHROMYCIN >4 R GENTAMICIN >8 R INDUCIBLE CLINDAMYCIN >4/0.5 POS LINEZOLID 2 S LEVOFLOXACIN >4 R OXACILLIN >2 R PENICILLIN >2 R* RIFAMPIN <=1 S TRIMETHOPRIM/SULFAMETHOXAZOLE >2/38 R TETRACYCLINE >8 R RUN DATE: 08/30/20 [facility] *LIVE* PAGE 2 RUN TIME: 913 Specimen Inquiry SPEC: [id number] PATIENT: YONIS HAIRSTON [id number] (Continued) Procedure Result CONTINUED ON NEXT PAGE RUN DATE: 08/30/20 [facility] *LIVE* PAGE 3 RUN TIME: 09 Specimen Inquiry SPEC: [id number] PATIENT: LEO HAIRSTONAPRIL Escamilla [id number] (Continued) Procedure Result ANTIMICROBIAL SUSCEPTIBILITY Preliminary (continued) VANCOMYCIN 1 S Unless otherwise specified, Testing Performed by: [address] [address] For Inquires, the Physician may contact the Microbiology department at [phone] Objective: Assessment: MRSA Complicated RT Knee arthroplasty infection ( R to bactrim and Doxycycline, S to Rifampin) 1.. Right knee postop site drainage,hematoma with infection Status post synovial aspirate on 08/27/2020, WBC 2100, RBC 102,000, 98%PMNs. Cult MRSA 2. MRSA Right knee periprosthetic joint infection. S/P Irrigation and debridement right knee with superficial and deep cultures and retention of hardware Jt Fluid cultures done per DR Rossi + MRSA Subcut tissue cult positive for MRSA 3. Fever 4. 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 5. Supracondylar fracture just above the knee joint 6. Status post removal of the components and placement of distal femoral replacement with a rotating hinge construct for periprosthetic distal femur fracture above well-fixated right total knee arthroplasty, 08/01/2020. 7. 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 8. Degenerative joint disease. 9. Bandemia. 10. Lactic acidosis. 11. Hypertension/hyperlipidemia. 12. History of chronic kidney disease. Plan: Plan of Care Cont Daptomycin higher dose 10mg/kg daily (08/30) and Rifampin ( 08/30). Avoid IV vancomycin due to BERHANE . Side effects of antibiotics discussed at length, monitor CK twice a week Monitor LFTs once a week Last CK was 9 on August 31 Pharmacy to assist with drug drug interactions for rifampin with other meds Will need IV antibiotics for at least 6 weeks Follow up labs and cultures. 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 Discussed with micro lab Due to MRSA on cultures,pt would need hardware explant It is a difficult situation as there are no oral chronic suppressive agents available after completion of IV antibiotics and Antibiotic alone may not be optimal especially for MRSA prosthetic joint infection Further surgical plans per orthopedics Monitor labs and cultures. Despite aggressive medical management patient is at high risk of limb loss Wound /VAC care as directed by Orthopedics. PT and OT as directed Continue supportive care. Discussed with patient's two daughters at bedside at length yesterday Hematoma management per orthopedics RN has paged to [facility] to reevaluate patient. Discussed with nursing staff INES RIOS MD Sep 01, 2020 08:59
--- NOTE | 2020-09-01 10:03 | PDOC ---
PROGRESS NOTES Date of Service: DATE: 09/01/20 TIME: 10:03 Chief Complaint Chief Complaint ASSESSMENT Right knee swelling and discharge and pain after 2 recent knee replacements. Ms. Hairston is a 89 old female periprosthetic distal femur fracture above well fixated right total knee arthroplasty with minimal bone available for distal fixation. JULY 2020 She had removal of components and placement of a distal femoral replacement with rotating hinge construct. FEVER T MAX 101.6F 6-17 SEPSIS PLAN ADMIT hold off on antibiotics until he takes the patient to surgery Postoperatively, she is going to need wound care, PT, OT and probably prison facility. ID CONSULT BLOOD CULTURES Operative procedure: Irrigation and debridement right knee with superficial and deep cultures and retention of hardware 6-18 6-18 hold off on antibiotics until he takes the patient to surgery Postoperatively, she is going to need wound care, PT, OT and probably prison facility. ID CONSULT BLOOD CULTURES Operative procedure: Irrigation and debridement right knee with superficial and deep cultures and retention of hardware 6-18 37 min pt exam, chart review, > 50% of time spent with exam, chart review, pt care coordination 6-19 emperic iv antibiotics Postoperatively, she is going to need wound care, PT, OT and probably prison facility. ID CONSULT BLOOD CULTURES Operative procedure: Irrigation and debridement right knee with superficial and deep cultures and retention of hardware 6-18 38 min pt exam, chart review, > 50% of time spent with exam, chart review, pt care coordination 6-20 pain improving emperic iv antibiotics Postoperatively, wound care, PT, OT and probably prison facility. ID CONSULT BLOOD CULTURES Operative procedure: Irrigation and debridement right knee with superficial and deep cultures and retention of hardware 618 Procedure Result GRAM STAIN Final Final GRAM POS COCCI CLUSTERS:MODERATE RBC:MANY SQUAMOUS EPI CELL:NOT APPLICABLE PMN (WBCs):MANY Unless otherwise specified, Testing Performed by: [address] [address] For Inquires, the Physician may contact the Microbiology department at [phone] ANAEROBIC-AEROBIC CULTURE Preliminary Preliminary MANY [STAPHYLOCOCCUS AUREUS (MRSA)] on 08/29/20 at 1351 STAPHYLOCOCCUS AUREUS (MRSA) ANTIMICROBIAL SUSCEPTIBILITY Preliminary Comment POS JC TYPE 38 STAPHYLOCOCCUS AUREUS (MRSA) ANTIBIOTIC RESULT INTERPRETATION AZITHROMYCIN >4 R CLINDAMYCIN <=0.25 R* CEFOXITIN SCREEN >4 POS CIPROFLOXACIN >2 R CEFTAROLINE 1 S DAPTOMYCIN 1 S ERYTHROMYCIN >4 R GENTAMICIN >8 R INDUCIBLE CLINDAMYCIN >4/0.5 POS LINEZOLID 2 S LEVOFLOXACIN >4 R OXACILLIN >2 R PENICILLIN >2 R* RIFAMPIN <=1 S TRIMETHOPRIM/SULFAMETHOXAZOLE >2/38 R TETRACYCLINE >8 R RUN DATE: 08/30/20 [facility] *LIVE* PAGE 2 RUN TIME: 913 Specimen Inquiry SPEC: [id number] PATIENT: MARIKAYONIS [id number] (Continued) Procedure Result CONTINUED ON NEXT PAGE RUN DATE: 08/30/20 [facility] *LIVE* PAGE 3 RUN TIME: 0914 Specimen Inquiry SPEC: [id number] PATIENT: YONIS HAIRSTON [id number] (Continued) SPEC #: [id number] OFE: 08/27/20 STATUS: RES REQ #: [id number] RECD: 08/28/[address]: JUDIE HUBBARD III, DO SOURCE: LEG ENTR: 08/28/[address]: [facility]AN [facility]OS [facility]BEVERLY De Jesus MD ORDERED: ANAER/AEROB/GS COMMENTS: R LEG SUBCUTANEOUS -------- ---- Procedure Result GRAM STAIN Final Final GRAM POS COCCI CLUSTERS:MODERATE RBC:MODERATE SQUAMOUS EPI CELL:RARE PMN (WBCs):MANY Unless otherwise specified, Testing Performed by: [address] [address] For Inquires, the Physician may contact the Microbiology department at [phone] ANAEROBIC-AEROBIC CULTURE Preliminary Preliminary MANY [STAPHYLOCOCCUS AUREUS (MRSA)] on 08/29/20 at 1351 SEE CULTURE AN663 FOR SUSCEPTIBILITY RESULTS STAPHYLOCOCCUS AUREUS (MRSA) Unless otherwise specified, Testing Performed by: [facility] [address] [place] [address] For Inquires, the Physician may contact the Microbiology department at [phone] --- --------- 36 min pt exam, chart review, > 50% of time spent with exam, chart review, pt care coordination 6-21 pain improving emperic iv antibiotics Postoperatively, wound care, PT, OT and probably prison facility. ID CONSULT BLOOD CULTURES Operative procedure: Irrigation and debridement right knee with superficial and deep cultures and retention of hardware 18 Procedure Result GRAM STAIN Final Final GRAM POS COCCI CLUSTERS:MODERATE RBC:MANY SQUAMOUS EPI CELL:NOT APPLICABLE PMN (WBCs):MANY Unless otherwise specified, Testing Performed by: [facility] [address] [place] [address] For Inquires, the Physician may contact the Microbiology department at [phone] ANAEROBIC-AEROBIC CULTURE Preliminary Preliminary MANY [STAPHYLOCOCCUS AUREUS (MRSA)] on 06/19/21 at 1351 STAPHYLOCOCCUS AUREUS (MRSA) ANTIMICROBIAL SUSCEPTIBILITY Preliminary Comment POS JC TYPE 38 STAPHYLOCOCCUS AUREUS (MRSA) ANTIBIOTIC RESULT INTERPRETATION AZITHROMYCIN >4 R CLINDAMYCIN <=0.25 R* CEFOXITIN SCREEN >4 POS CIPROFLOXACIN >2 R CEFTAROLINE 1 S DAPTOMYCIN 1 S ERYTHROMYCIN >4 R GENTAMICIN >8 R INDUCIBLE CLINDAMYCIN >4/0.5 POS LINEZOLID 2 S LEVOFLOXACIN >4 R OXACILLIN >2 R PENICILLIN >2 R* RIFAMPIN <=1 S TRIMETHOPRIM/SULFAMETHOXAZOLE >2/38 R TETRACYCLINE >8 R RUN DATE: 08/30/20 [facility] *LIVE* PAGE 2 RUN TIME: 913 Specimen Inquiry SPEC: [id number] PATIENT: YONIS HAIRSTON [id number] (Continued) ----- ------- Procedure Result CONTINUED ON NEXT PAGE RUN DATE: 08/30/20 [facility] *LIVE* PAGE 3 RUN TIME: 913 Specimen Inquiry SPEC: [id number] PATIENT: YONIS HAIRSTON [id number] (Continued) SPEC #: [id number] OFE: 08/27/20 STATUS: RES REQ #: [id number] RECD: 08/28/[address]: JUDIE HUBBARD III, DO SOURCE: LEG ENTR: 08/28/[address]: YAN RIOS MD [facility]: WOUND PULS,BEVERLY De Jesus MD ORDERED: ANAER/AERERIC/GS COMMENTS: R LEG SUBCUTANEOUS Procedure Result GRAM STAIN Final Final GRAM POS COCCI CLUSTERS:MODERATE RBC:MODERATE SQUAMOUS EPI CELL:RARE PMN (WBCs):MANY Unless otherwise specified, Testing Performed by: [address] [address] For Inquires, the Physician may contact the Microbiology department at [phone] ANAEROBIC-AEROBIC CULTURE Preliminary Preliminary MANY [STAPHYLOCOCCUS AUREUS (MRSA)] on 08/29/20 at 1351 SEE CULTURE AN663 FOR SUSCEPTIBILITY RESULTS STAPHYLOCOCCUS AUREUS (MRSA) Unless otherwise specified, Testing Performed by: [address] [address] For Inquires, the Physician may contact the Microbiology department at [phone] 26 min pt exam, chart review, > 50% of time spent with exam, chart review, pt care coordination Cont Daptomycin higher dose 10mg/kg daily (08/30) and Rifampin ( 08/30). Avoid IV vancomycin due to BERHANE . monitor CK closely Follow up labs and cultures. 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 6 pain improving emperic iv antibiotics Postoperatively, wound care, PT, OT and probably prison facility. ID CONSULT BLOOD CULTURES Operative procedure: Irrigation and debridement right knee with superficial and deep cultures and retention of hardware 08-28 Procedure Result GRAM STAIN Final Final GRAM POS COCCI CLUSTERS:MODERATE RBC:MANY SQUAMOUS EPI CELL:NOT APPLICABLE PMN (WBCs):MANY Unless otherwise specified, Testing Performed by: [address] [address] For Inquires, the Physician may contact the Microbiology department at [phone] ANAEROBIC-AEROBIC CULTURE Preliminary Preliminary MANY [STAPHYLOCOCCUS AUREUS (MRSA)] on 08/29/20 at 1351 STAPHYLOCOCCUS AUREUS (MRSA) ANTIMICROBIAL SUSCEPTIBILITY Preliminary Comment POS JC TYPE 38 STAPHYLOCOCCUS AUREUS (MRSA) ANTIBIOTIC RESULT INTERPRETATION AZITHROMYCIN >4 R CLINDAMYCIN <=0.25 R* CEFOXITIN SCREEN >4 POS CIPROFLOXACIN >2 R CEFTAROLINE 1 S DAPTOMYCIN 1 S ERYTHROMYCIN >4 R GENTAMICIN >8 R INDUCIBLE CLINDAMYCIN >4/0.5 POS LINEZOLID 2 S LEVOFLOXACIN >4 R OXACILLIN >2 R PENICILLIN >2 R* RIFAMPIN <=1 S TRIMETHOPRIM/SULFAMETHOXAZOLE >38 R TETRACYCLINE >8 R RUN DATE: 08/30/20 [facility] *LIVE* PAGE 2 RUN TIME: 913 Specimen Inquiry SPEC: [id number] PATIENT: ANA LUISAYONIS CASAS [id number] (Continued) Procedure Result CONTINUED ON NEXT PAGE RUN DATE: 08/30/20 [facility] *LIVE* PAGE 3 RUN TIME: 913 Specimen Inquiry SPEC: [id number] PATIENT: YONIS HAIRSTON [id number] (Continued) SPEC #: [id number] OFE: 08/27/20 STATUS: RES REQ #: [id number] RECD: 08/28/20-[address]: JUDIE HUBBARD III, DO SOURCE: LEG ENTR: 08/28/[address]: YAN RIOS MD [facility]: WOUND BEVERLY SPENCER MD ORDERED: ANAER/CHAI/KARI COMMENTS: R LEG SUBCUTANEOUS Procedure Result GRAM STAIN Final Final GRAM POS COCCI CLUSTERS:MODERATE RBC:MODERATE SQUAMOUS EPI CELL:RARE PMN (WBCs):MANY Unless otherwise specified, Testing Performed by: [address] [address] For Inquires, the Physician may contact the Microbiology department at [phone] ANAEROBIC-AEROBIC CULTURE Preliminary Preliminary MANY [STAPHYLOCOCCUS AUREUS (MRSA)] on 08/29/20 at 1351 SEE CULTURE AN663 FOR SUSCEPTIBILITY RESULTS STAPHYLOCOCCUS AUREUS (MRSA) Unless otherwise specified, Testing Performed by: [address] [address] For Inquires, the Physician may contact the Microbiology department at [phone] 26 min pt exam, chart review, > 50% of time spent with exam, chart review, pt care coordination Cont Daptomycin higher dose 10mg/kg daily (08/30) and Rifampin ( 08/30). Av oid IV vancomycin due to BERHANE . monitor CK closely Follow up labs and cultures. 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 History of Present Illness History of Present Illness ADMIT DATE: 08/27/2020 CHIEF COMPLAINT: Right knee swelling, pain, discharge. HISTORY OF PRESENT ILLNESS: The patient is a pleasant 89-year-old female who underwent a right knee replacement with Dr. Rossi on 07/21 last month. She was doing relatively well, but then she fell and refractured the knee. I spoke with Dr. Rossi about the procedure. He had to go back in and put in a complex rotating hinge as she did not have much bone left above the previous knee replacement. Postoperatively, she was sent to [place] for rehabilitation. She was doing relatively well once again, but then started having some drainage. Dr. Rossi requested that she be put on a wound VAC. Apparently, the wound VAC situation was not helping much. Dr. Rossi states that it probably was not put on properly. Nevertheless, the patient came to our ER today with more drainage and some swelling and pain. Dr. Rossi called Dr. Cortes and had him do an arthrocentesis. The patient is now being examined on the medical floor, where she is getting ready to go to surgery here in a few minutes. PAST MEDICAL HISTORY: The above-mentioned complex knee replacement twice; arthritis; GERD; hyperlipidemia; hypertension; thyroid surgery; overactive bladder; partial hysterectomy, right; multiple hernia repairs. ALLERGIES: PREDNISONE AND CARAFATE. FAMILY HISTORY: Diabetes. SOCIAL HISTORY: She does not drink, smoke or take drugs. She is retired; has 3 children, one of her daughters is here, she seems to be a very good support for her. MEDICATIONS: Reviewed. Please refer to the MRAD. REVIEW OF SYSTEMS: GENERAL: No history of weight change, weakness or fevers. SKIN: No bruising, hair changes or rashes. EYES: No blurred, double or loss of vision. NOSE AND THROAT: No history of nosebleeds, hoarseness or sore throat. HEART: No history of palpitations, chest pain or shortness of breath on exertion. LUNGS: Denies cough, hemoptysis, wheezing or shortness of breath. GASTROINTESTINAL: Denies changes in appetite, nausea, vomiting, diarrhea or constipation. GENITOURINARY: No history of frequency, urgency, hesitancy or nocturia. NEUROLOGIC: Denies history of numbness, tingling, tremor or weakness. PSYCHIATRIC: No history of panic, anxiety or depression. ENDOCRINE: No history of heat or cold intolerance, polyuria or polydipsia. EXTREMITIES: She complains of right knee pain. Vitals Vitals Vital Signs Date Time Temp Pulse Resp B/P (MAP) Pulse Ox O2 Delivery O2 Flow Rate FiO2 09/01/20 07:00 98.1 75 17 143/83 (103) 95 Room Air 98.1 Physical Exam Physical Exam GENERAL: Alert, oriented x 3, pleasant female, lying in bed comfortably, in no acute distress. HEENT: Normocephalic, atraumatic. Anicteric. NECK: Supple. No JVD. LUNGS: Clear bilaterally. No wheezing. HEART: S1, S2. No gallops or murmurs. ABDOMEN: Soft, obese, nontender, nondistended. EXTREMITIES: Right lower extremity swelling present. Wound VAC in place. Minimal warmth. No surrounding erythema noted. Distal aspect of wound has swelling which appears to be a developing hematoma NEUROLOGIC: Alert, oriented x 3, grossly nonfocal. PSYCHIATRIC: Calm and cooperative. DERMATOLOGIC: Warm, dry, no generalized rash. PIV looks clean. General: Alert, Cooperative, No acute distress Heart: Regular rate Lungs: Clear Abdomen: Normal bowel sounds, Soft Extremities: No cyanosis Assessment and Plan Assessmemt and Plan Problems Medical Problems: (1) Cellulitis Status: Acute Comment Review of Relevant I have reviewed the following items fiorella (where applicable) has been applied. Labs Laboratory Tests Test 08/31/20 03:50 White Blood Count 5.9 x10^3/uL (4.0-11.0) Red Blood Count 3.01 x10^6/uL (3.50-5.40) Hemoglobin 9.4 g/dL (12.0-15.5) Hematocrit 28.8 % (36.0-47.0) Mean Corpuscular Volume 96 fL (79-100) Mean Corpuscular Hemoglobin 31 pg (25-35) Mean Corpuscular Hemoglobin Concent 33 g/dL (31-37) Red Cell Distribution Width 14.4 % (11.5-14.5) Platelet Count 213 x10^3/uL (140-400) Neutrophils (%) (Auto) 58 % (31-73) Lymphocytes (%) (Auto) 23 % (24-48) Monocytes (%) (Auto) 15 % (0-9) Eosinophils (%) (Auto) 3 % (0-3) Basophils (%) (Auto) 1 % (0-3) Neutrophils # (Auto) 3.4 x10^3/uL (1.8-7.7) Lymphocytes # (Auto) 1.3 x10^3/uL (1.0-4.8) Monocytes # (Auto) 0.9 x10^3/uL (0.0-1.1) Eosinophils # (Auto) 0.2 x10^3/uL (0.0-0.7) Basophils # (Auto) 0.0 x10^3/uL (0.0-0.2) Sodium Level 145 mmol/L (136-145) Potassium Level 3.8 mmol/L (3.5-5.1) Chloride Level 111 mmol/L (98-107) Carbon Dioxide Level 28 mmol/L (21-32) Anion Gap 6 (6-14) Blood Urea Nitrogen 10 mg/dL (7-20) Creatinine 0.9 mg/dL (0.6-1.0) Estimated GFR (Cockcroft-Gault) 59.0 BUN/Creatinine Ratio 11 (6-20) Glucose Level 93 mg/dL (70-99) Calcium Level 8.2 mg/dL (8.5-10.1) Total Bilirubin 0.9 mg/dL (0.2-1.0) Aspartate Amino Transf (AST/SGOT) 16 U/L (15-37) Alanine Aminotransferase (ALT/SGPT) 15 U/L (14-59) Alkaline Phosphatase 125 U/L (46-116) Creatine Kinase 9 U/L (26-192) Total Protein 5.1 g/dL (6.4-8.2) Albumin 1.8 g/dL (3.4-5.0) Albumin/Globulin Ratio 0.5 (1.0-1.7) Microbiology 08/27/20 Gram Stain - Final, Resulted 08/27/20 Aerobic and Anaerobic Culture - Preliminary, Resulted 08/27/20 Antimicrobic Susceptibility - Preliminary, Resulted 08/27/20 AFB Specimen Processing Tissue - Final, Resulted 08/27/20 Acid Fast Bacilli Culture, Resulted Pending 08/27/20 Gram Stain - Final, Resulted 08/27/20 Fungal Culture, Resulted Pending 08/27/20 Fungal Culture Result 1, Resulted Pending 08/27/20 Blood Culture - Preliminary, Resulted NO GROWTH AFTER 4 DAYS Medications Current Medications Vancomycin HCl 1 gm/Sodium Chloride 250 ml @ 166.667 mls/hr 1X ONCE IV ; Start 08/27/20 at 14:00; Stop 08/27/20 at 14:04; Status DC Vancomycin HCl 1.75 gm/Sodium Chloride 500 ml @ 250 mls/hr 1X ONCE IV Last administered on 08/27/20at 15:13; Start 08/27/20 at 14:30; Stop 08/27/20 at 16:29; Status DC Sodium Chloride 1,000 ml @ 1,000 mls/hr 1X ONCE IV Last administered on 08/11 09/30at 15:12; Start 08/27/20 at 14:15; Stop 08/27/20 at 15:14; Status DC Fentanyl Citrate (Fentanyl 2ml Vial) 25 mcg PRN Q5MIN PRN IVP MILD PAIN 1-3; Start 08/27/20 at 16:30; Stop 08/28/20 at 16:29; Status DC Fentanyl Citrate (Fentanyl 2ml Vial) 50 mcg PRN Q5MIN PRN IVP MODERATE PAIN 4-6 Last administered on 08/27/20at 21:50; Start 08/27/20 at 16:30; Stop 08/28/20 at 16:29; Status DC Morphine Sulfate (Morphine Sulfate) 1 mg PRN Q10MIN PRN IVP SEVERE PAIN 7-10 Last administered on 08/27/20at 22:13; Start 08/27/20 at 16:30; Stop 08/28/20 at 16:29; Status DC Ringer's Solution 1,000 ml @ 30 mls/hr Q24H IV ; Start 08/27/20 at 16:30; Stop 08/28/20 at 04:29; Status DC Hydromorphone HCl (Dilaudid) 0.5 mg PRN Q10MIN PRN IVP SEVERE PAIN 7-10, 2nd CHOICE Last administered on 08/27/20at 22:24; Start 08/27/20 at 16:30; Stop 08/28/20 at 16:29; Status DC Prochlorperazine Edisylate (Compazine) 5 mg PACU PRN PRN IVP NAUSEA, MRX1; Start 08/27/20 at 16:30; Stop 08/28/20 at 16:29; Status DC Propofol (Diprivan) 200 mg STK-MED ONCE IV ; Start 08/27/20 at 19:50; Stop 08/27/20 at 19:51; Status DC Lidocaine HCl (Lidocaine Pf 2% Vial) 5 ml STK-MED ONCE .ROUTE ; Start 08/27/20 at 19:50; Stop 08/27/20 at 19:51; Status DC Fentanyl Citrate (Fentanyl 2ml Vial) 100 mcg STK-MED ONCE .ROUTE ; Start 08/27/20 at 19:58; Stop 08/27/20 at 19:58; Status DC Ondansetron HCl (Zofran) 4 mg STK-MED ONCE .ROUTE ; Start 08/27/20 at 20:36; Stop 08/27/20 at 20:37; Status DC Dexamethasone Sodium Phosphate (Decadron) 4 mg STK-MED ONCE .ROUTE ; Start 08/27/20 at 20:36; Stop 08/27/20 at 20:37; Status DC Phenylephrine HCl (PHENYLEPHRINE in 0.9% NACL PF) 1 mg STK-MED ONCE IV ; Start 08/27/20 at 20:37; Stop 08/27/20 at 20:37; Status DC Sevoflurane (Ultane) 60 ml STK-MED ONCE IH ; Start 08/27/20 at 21:22; Stop 08/27/20 at 21:22; Status DC Fentanyl Citrate (Fentanyl 2ml Vial) 100 mcg STK-MED ONCE .ROUTE ; Start 08/27/20 at 21:45; Stop 08/27/20 at 21:45; Status DC Morphine Sulfate (Morphine Sulfate) 2 mg STK-MED ONCE .ROUTE ; Start 08/27/20 at 22:01; Stop 08/27/20 at 22:01; Status DC Hydromorphone HCl (Dilaudid) 2 mg STK-MED ONCE .ROUTE ; Start 08/27/20 at 22:21; Stop 08/27/20 at 22:21; Status DC Sodium Chloride 1,000 ml @ 75 mls/hr [id number] IV Last administered on 08/30/20at 02:38; Start 08/28/20 at 09:45; Stop 08/30/20 at 15:48; Status DC Daptomycin 410 mg/ Sodium Chloride 50 ml @ 100 mls/hr Q24H IV Last administered on 08/29/20at 13:15; Start 08/28/20 at 12:30; Stop 08/30/20 at 10:11; Status DC Piperacillin Sod/ Tazobactam Sod 3.375 gm/Sodium Chloride 50 ml @ 100 mls/hr Q6HRS IV Last administered on 08/30/20at 05:57; Start 08/28/20 at 12:00; Stop 08/30/20 at 10:11; Status DC Acetaminophen (Tylenol) 1,000 mg PRN BID PRN PO MILD PAIN / TEMP > 100.3'F Last administered on 09/01/20at 01:04; Start 08/28/20 at 14:45 Docusate Sodium (Colace) 100 mg BID PO Last administered on 08/31/20at 21:52; Start 08/28/20 at 21:00 Levothyroxine Sodium (Synthroid) 88 mcg DAILY07 PO Last administered on 08/31/20at 10:05; Start 08/29/20 at 07:00 Simvastatin (Zocor) 20 mg HS PO Last administered on 08/31/20at 21:53; Start 08/28/20 at 21:00 Tramadol HCl (Ultram) 50 mg PRN Q4HRS PRN PO MODERATE-SEVERE PAIN Last administered on 08/28/20at 15:01; Start 08/28/20 at 14:45 Vitamin D (Vitamin D3) 2,000 unit DAILY PO Last administered on 08/31/20at 10:01; Start 08/29/20 at 09:00 Non-Formulary Medication (Melatonin ) 1 tab QHS PO ; Start 08/28/20 at 21:00; Status UNV Multivitamins (Thera M Plus) 1 tab DAILY PO Last administered on 08/31/20at 10:01; Start 08/29/20 at 09:00 Pantoprazole Sodium (Protonix) 40 mg DAILYAC PO Last administered on 08/31/20at 10:01; Start 08/29/20 at 07:30 Oxybutynin Chloride (Ditropan) 5 mg HTI030 PO Last administered on 09/01/20at 06:41; Start 08/28/20 at 21:00 Lactobacillus Rhamnosus (Culturelle) 1 cap BID PO Last administered on 08/31/20at 21:52; Start 08/29/20 at 21:00 Rifampin (Rifadin) 300 mg BID PO Last administered on 08/31/20at 21:52; Start 08/30/20 at 11:00 Daptomycin 550 mg/ Sodium Chloride 50 ml @ 100 mls/hr Q24H IV Last administered on 08/31/20at 11:57; Start 08/30/20 at 12:30 Active Scripts Active Reported Acetaminophen 500 Mg Tablet 2 Tab PO PRN BID PRN 30 Days Tramadol Hcl 50 Mg Tablet 50 Mg PO Q4HRS PRN Melatonin 5 Mg Tab.rapdis 1 Tab PO QHS 30 Days Colace (Docusate Sodium) 100 Mg Capsule 1 Cap PO BID 30 Days Vesicare (Solifenacin Succinate) 10 Mg Tablet 1 Tab PO DAILY 30 Days Levothyroxine Sodium 88 Mcg Tablet 1 Tab PO DAILY Omeprazole 20 Mg Capsule.dr 1 Cap PO DAILY Vitamin D3 (Cholecalciferol (Vitamin D3)) 2,000 Unit Tablet 2,000 Unit PO DAILY Once Daily (Multivitamin) 1 Each Tablet 1 Each PO DAILY Simvastatin 20 Mg Tablet 20 Mg PO HS Vitals/I & O Vital Sign - Last 24 Hours 08/31/20 08/31/20 08/31/20 08/31/20 10:23 14:38 19:00 19:50 Temp 98.0 98.3 98.4 98.0 98.3 98.4 Pulse 76 58 78 Resp 18 18 18 B/P (MAP) 121/59 (79) 120/58 (78) 155/54 (87) Pulse Ox 98 95 97 O2 Delivery Room Air Room Air Room Air Room Air 08/31/20 09/01/20 09/01/20 22:53 02:57 07:00 Temp 98.4 98.3 98.1 98.4 98.3 98.1 Pulse 81 87 75 Resp 18 18 17 B/P (MAP) 143/52 (82) 154/71 (98) 143/83 (103) Pulse Ox 98 96 95 O2 Delivery Room Air Room Air Room Air Justicifation of Admission Dx: Justifications for Admission: Justification of Admission Dx: N/A SUNSHINE GALEAS MD Sep 01, 2020 10:03
--- NOTE | 2020-09-01 10:17 | NUR ---
LOLA following. Discussed with RN. Referral faxed to [facility] yesterday, LOLA left voicemail to determine if pt accepted. LOLA spoke with pt's daughter, Tiffanie, she would like pt to go to [facility] if accepted but then would like to try [facility] if not accepted at [facility]. LOLA informed Tiffanie that [facility] very rarely approves acute rehab and to start thinking of another back up option in case that happens. LOLA will continue to follow. Addendum: 09/01/20 at 1516 by LAVON DAVILA [facility] denied due to not having a bed for the rest of the week. Referral faxed to [facility]. LOLA spoke with Tiffanie - requested a back up SNF option incase insurance denies acute rehab.
[2020-09-01 11:00] VITALS: BP 105/38
[2020-09-01] MEDS: MULTIVITAMIN with MINERAL TABLET. PO SCH (11:17)
[2020-09-01] MEDS: riFAMpin 300 MG CAPSULE. PO SCH ×2 (11:17→21:22)
[2020-09-01] MEDS: CHOLECALCIFEROL (VITAMIN D3) 1,000 UNIT TABLET PO SCH (11:18)
[2020-09-01] MEDS: LACTOBACILLUS RHAMNOSUS GG 1 CAPSULE. PO SCH ×2 (11:18→21:22)
[2020-09-01] MEDS: DOCUSATE SODIUM 100 MG CAPSULE. PO SCH ×2 (11:18→21:23)
[2020-09-01] MEDS: PANTOPRAZOLE 40 MG TABLET.DR. PO SCH (11:18)
[2020-09-01] MEDS: DAPTOmycin (GENERIC) IVPB 550 MG in IV NORMAL SALINE 50ML 50 ML IV SCH (14:22)
[2020-09-01 15:00] VITALS: BP 138/53
[2020-09-01 19:00] VITALS: BP 107/51
[2020-09-01] MEDS: SIMVASTATIN 20 MG TABLET PO SCH (21:22)
[2020-09-01 23:25] VITALS: BP 135/54
[2020-09-02 03:04] VITALS: BP 137/56
[2020-09-02] MEDS: ACETAMINOPHEN 500 MG TABLET PO PRN (03:41)
[2020-09-02] MEDS: LEVOTHYROXINE 88 MCG TABLET PO SCH (06:29)
[2020-09-02] MEDS: OXYBUTYNIN CHLORIDE 5 MG TABLET PO SCH ×3 (06:30→21:01)
[2020-09-02 07:00] VITALS: BP 116/61
[2020-09-02 07:26] LABS: BASO # 0.1 x10^3/uL (0.0-0.2); BASO % 1 % (0-3); EOS # 0.2 x10^3/uL (0.0-0.7); EOS % 2 % (0-3); HEMATOCRIT 28.8 % (36.0-47.0); HEMOGLOBIN 9.6 g/dL (12.0-15.5); LYMPH # 1.8 x10^3/uL (1.0-4.8); LYMPH % 22 % (24-48); MEAN CORPUSCULAR HEMOGLOBIN 31 pg (25-35); MEAN CORPUSCULAR HGB CONC 33 g/dL (31-37); MEAN CORPUSCULAR VOLUME 94 fL (79-100); MONO # 1.1 x10^3/uL (0.0-1.1); MONO % 14 % (0-9); NEUT # 4.9 x10^3/uL (1.8-7.7); NEUT % 61 % (31-73); PLATELET COUNT 261 x10^3/uL (140-400); RED BLOOD COUNT 3.05 x10^6/uL (3.50-5.40); RED CELL DISTRIBUTION WIDTH 14.5 % (11.5-14.5)
[2020-09-02 07:42] LABS: CREATININE 0.8 mg/dL (0.6-1.0); GFR 67.5; POTASSIUM 4.2 mmol/L (3.5-5.1)
--- NOTE | 2020-09-02 08:29 | PDOC ---
Infectious Disease Note Subjective: Subjective Patient without complaints Continues to have drainage from right lower extremity incision site Denies fever, nausea, vomiting, shortness of breath, diarrhea, abdominal pain, rash Otherwise as above Vital Signs: Vital Signs Vital Signs Date Time Temp Pulse Resp B/P (MAP) Pulse Ox O2 Delivery O2 Flow Rate FiO2 09/02/20 07:00 97.6 77 17 116/61 (79) 95 Room Air 97.6 Physical Exam: PHYSICAL EXAM GENERAL: Alert, oriented x 3, pleasant female, lying in bed comfortably, in no acute distress. HEENT: Normocephalic, atraumatic. Anicteric. NECK: Supple. No JVD. LUNGS: Clear bilaterally. No wheezing. HEART: S1, S2. No gallops or murmurs. ABDOMEN: Soft, obese, nontender, nondistended. EXTREMITIES: Right lower extremity swelling present. Wound VAC in place. Minimal warmth. No surrounding erythema noted. Distal aspect of wound has swelling which appears to be a developing hematoma NEUROLOGIC: Alert, oriented x 3, grossly nonfocal. PSYCHIATRIC: Calm and cooperative. DERMATOLOGIC: Warm, dry, no generalized rash. PIV looks clean. Medications: Inpatient Meds: Medications reviewed. Labs: Lab Laboratory Tests Test 09/02/20 05:45 White Blood Count 8.0 x10^3/uL (4.0-11.0) Red Blood Count 3.05 x10^6/uL (3.50-5.40) Hemoglobin 9.6 g/dL (12.0-15.5) Hematocrit 28.8 % (36.0-47.0) Mean Corpuscular Volume 94 fL (79-100) Mean Corpuscular Hemoglobin 31 pg (25-35) Mean Corpuscular Hemoglobin Concent 33 g/dL (31-37) Red Cell Distribution Width 14.5 % (11.5-14.5) Platelet Count 261 x10^3/uL (140-400) Neutrophils (%) (Auto) 61 % (31-73) Lymphocytes (%) (Auto) 22 % (24-48) Monocytes (%) (Auto) 14 % (0-9) Eosinophils (%) (Auto) 2 % (0-3) Basophils (%) (Auto) 1 % (0-3) Neutrophils # (Auto) 4.9 x10^3/uL (1.8-7.7) Lymphocytes # (Auto) 1.8 x10^3/uL (1.0-4.8) Monocytes # (Auto) 1.1 x10^3/uL (0.0-1.1) Eosinophils # (Auto) 0.2 x10^3/uL (0.0-0.7) Basophils # (Auto) 0.1 x10^3/uL (0.0-0.2) Sodium Level 141 mmol/L (136-145) Potassium Level 4.2 mmol/L (3.5-5.1) Chloride Level 107 mmol/L (98-107) Carbon Dioxide Level 26 mmol/L (21-32) Anion Gap 8 (6-14) Blood Urea Nitrogen 12 mg/dL (7-20) Creatinine 0.8 mg/dL (0.6-1.0) Estimated GFR (Cockcroft-Gault) 67.5 Glucose Level 101 mg/dL (70-99) Calcium Level 8.0 mg/dL (8.5-10.1) Micro RUN DATE: 08/30/20 [facility] *LIVE* PAGE 1 RUN TIME: 913 Specimen Inquiry PATIENT: YONIS HAIRSTON ACCT: [id number] LOC: [address] [place] [address] U: [id number] AGE/SX: 89/F ROOM: 404 RE08/27/[address]: JUDIE HUBBARD III DO : 1930 BED: 1 DIS: STATUS: ADM IN TLOC: SPEC #: [id number] OFE: 08/27/20 STATUS: RES REQ #: [id number] RECD: 08/28/[address]: JUDIE HUBBARD III, DO SOURCE: KNEE ENTR: 08/28/[address] [facility] [address]: YAN RIOS MD [facility]: BEVERLY PERRY MD ORDERED: ANAER/AEROB/GS COMMENTS: R KNEE JOINT FLUID -- Procedure Result GRAM STAIN Final Final GRAM POS COCCI CLUSTERS:MODERATE RBC:MANY SQUAMOUS EPI CELL:NOT APPLICABLE PMN (WBCs):MANY Unless otherwise specified, Testing Performed by: [address] [address] For Inquires, the Physician may contact the Microbiology department at [phone] ANAEROBIC-AEROBIC CULTURE Preliminary Preliminary MANY [STAPHYLOCOCCUS AUREUS (MRSA)] on 08/29/20 at 1351 STAPHYLOCOCCUS AUREUS (MRSA) ANTIMICROBIAL SUSCEPTIBILITY Preliminary Comment POS JC TYPE 38 STAPHYLOCOCCUS AUREUS (MRSA) ANTIBIOTIC RESULT INTERPRETATION AZITHROMYCIN >4 R CLINDAMYCIN <=0.25 R* CEFOXITIN SCREEN >4 POS CIPROFLOXACIN >2 R CEFTAROLINE 1 S DAPTOMYCIN 1 S ERYTHROMYCIN >4 R GENTAMICIN >8 R INDUCIBLE CLINDAMYCIN >4/0.5 POS LINEZOLID 2 S LEVOFLOXACIN >4 R OXACILLIN >2 R PENICILLIN >2 R* RIFAMPIN <=1 S TRIMETHOPRIM/SULFAMETHOXAZOLE >2/38 R TETRACYCLINE >8 R RUN DATE: 08/30/20 [facility] *LIVE* PAGE 2 RUN TIME: 913 Specimen Inquiry SPEC: [id number] PATIENT: MARIKAYONIS Escamilla [id number] (Continued) Procedure Result CONTINUED ON NEXT PAGE RUN DATE: 08/30/20 [facility] *LIVE* PAGE 3 RUN TIME: 0914 Specimen Inquiry SPEC: [id number] PATIENT: MARIKAYONIS [id number] (Co vargheseinwanda) Procedure Result ANTIMICROBIAL SUSCEPTIBILITY Preliminary (continued) VANCOMYCIN 1 S Unless otherwise specified, Testing Performed by: [address] [address] For Inquires, the Physician may contact the Microbiology department at [phone] Objective: Assessment: MRSA Complicated RT Knee arthroplasty infection ( R to bactrim and Doxycycline, S to Rifampin) 1.. Right knee postop site drainage,hematoma with infection Status post synovial aspirate on 08/27/2020, WBC 2100, RBC 102,000, 98%PMNs. Cult MRSA 2. MRSA Right knee periprosthetic joint infection. S/P Irrigation and debridement right knee with superficial and deep cultures and retention of hardware Jt Fluid cultures done per DR Rossi + MRSA Subcut tissue cult positive for MRSA 3. Fever 4. 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 5. Supracondylar fracture just above the knee joint 6. Status post removal of the components and placement of distal femoral replacement with a rotating hinge construct for periprosthetic distal femur fracture above well-fixated right total knee arthroplasty, 08/01/2020. 7. 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 8. Degenerative joint disease. 9. Bandemia. 10. Lactic acidosis. 11. Hypertension/hyperlipidemia. 12. History of chronic kidney disease. Plan: Plan of Care Cont Daptomycin higher dose 10mg/kg daily (08/30) and Rifampin ( 08/30). Avoid IV vancomycin due to BERHANE . Side effects of antibiotics discussed at length, monitor CK twice a week Monitor LFTs once a week Last CK was 9 on August 31 Pharmacy to assist with drug drug interactions for rifampin with other meds Will need IV antibiotics for at least 6 weeks Follow up labs and cultures. F/U minocycline susceptibilities to MRSA. Discussed with micro lab Due to MRSA on cultures,pt would need hardware explant It is a difficult situation as there are no oral chronic suppressive agents available after completion of IV antibiotics and Antibiotic alone may not be optimal especially for MRSA prosthetic joint infection Further surgical plans per orthopedics if pt is a candidate, . D/W Dr Rossi. Difficult surgical candidate due to femur implant.... Despite aggressive medical management patient is at high risk of limb loss Wound /VAC care as directed by Orthopedics. PT and OT as directed Continue supportive care. Discussed with patient's two daughters at bedside today INES RIOS MD Sep 02, 2020 08:29
[2020-09-02] MEDS: CHOLECALCIFEROL (VITAMIN D3) 1,000 UNIT TABLET PO SCH (08:38)
[2020-09-02] MEDS: PANTOPRAZOLE 40 MG TABLET.DR. PO SCH (08:38)
[2020-09-02] MEDS: DOCUSATE SODIUM 100 MG CAPSULE. PO SCH ×2 (08:38→20:51)
[2020-09-02] MEDS: riFAMpin 300 MG CAPSULE. PO SCH ×2 (08:38→21:01)
[2020-09-02] MEDS: MULTIVITAMIN with MINERAL TABLET. PO SCH (08:38)
[2020-09-02] MEDS: LACTOBACILLUS RHAMNOSUS GG 1 CAPSULE. PO SCH ×2 (08:38→21:01)
--- NOTE | 2020-09-02 09:26 | PDOC ---
PROGRESS NOTES Date of Service: DATE: 09/02/20 TIME: 09:33 Chief Complaint Chief Complaint ASSESSMENT Right knee swelling and discharge and pain after 2 recent knee replacements. Ms. Hairston is a 89 old female periprosthetic distal femur fracture above well fixated right total knee arthroplasty with minimal bone available for distal fixation. JULY 2020 She had removal of components and placement of a distal femoral replacement with rotating hinge construct. FEVER T MAX 101.6F 6-17 SEPSIS PLAN ADMIT hold off on antibiotics until he takes the patient to surgery Postoperatively, she is going to need wound care, PT, OT and probably longterm facility. ID CONSULT BLOOD CULTURES Operative procedure: Irrigation and debridement right knee with superficial and deep cultures and retention of hardware 6-18 6-18 hold off on antibiotics until he takes the patient to surgery Postoperatively, she is going to need wound care, PT, OT and probably longterm facility. ID CONSULT BLOOD CULTURES Operative procedure: Irrigation and debridement right knee with superficial and deep cultures and retention of hardware 6-18 37 min pt exam, chart review, > 50% of time spent with exam, chart review, pt care coordination 6-19 emperic iv antibiotics Postoperatively, she is going to need wound care, PT, OT and probably longterm facility. ID CONSULT BLOOD CULTURES Operative procedure: Irrigation and debridement right knee with superficial and deep cultures and retention of hardware 6-18 38 min pt exam, chart review, > 50% of time spent with exam, chart review, pt care coordination 6-20 pain improving emperic iv antibiotics Postoperatively, wound care, PT, OT and probably longterm facility. ID CONSULT BLOOD CULTURES Operative procedure: Irrigation and debridement right knee with superficial and deep cultures and retention of hardware 618 Procedure Result GRAM STAIN Final Final GRAM POS COCCI CLUSTERS:MODERATE RBC:MANY SQUAMOUS EPI CELL:NOT APPLICABLE PMN (WBCs):MANY Unless otherwise specified, Testing Performed by: [address] [address] For Inquires, the Physician may contact the Microbiology department at [phone] ANAEROBIC-AEROBIC CULTURE Preliminary Preliminary MANY [STAPHYLOCOCCUS AUREUS (MRSA)] on 08/29/20 at 1351 STAPHYLOCOCCUS AUREUS (MRSA) ANTIMICROBIAL SUSCEPTIBILITY Preliminary Comment POS JC TYPE 38 STAPHYLOCOCCUS AUREUS (MRSA) ANTIBIOTIC RESULT INTERPRETATION AZITHROMYCIN >4 R CLINDAMYCIN <=0.25 R* CEFOXITIN SCREEN >4 POS CIPROFLOXACIN >2 R CEFTAROLINE 1 S DAPTOMYCIN 1 S ERYTHROMYCIN >4 R GENTAMICIN >8 R INDUCIBLE CLINDAMYCIN >4/0.5 POS LINEZOLID 2 S LEVOFLOXACIN >4 R OXACILLIN >2 R PENICILLIN >2 R* RIFAMPIN <=1 S TRIMETHOPRIM/SULFAMETHOXAZOLE >2/38 R TETRACYCLINE >8 R RUN DATE: 08/30/20 [facility] *LIVE* PAGE 2 RUN TIME: 913 Specimen Inquiry SPEC: [id number] PATIENT: MARIKAYONIS [id number] (Continued) Procedure Result CONTINUED ON NEXT PAGE RUN DATE: 08/30/20 [facility] *LIVE* PAGE 3 RUN TIME: 0914 Specimen Inquiry SPEC: [id number] PATIENT: YONIS HAIRSTON [id number] (Continued) SPEC #: [id number] OFE: 08/27/20 STATUS: RES REQ #: [id number] RECD: 08/28/[address]: JUDIE HUBBARD III, DO SOURCE: LEG ENTR: 08/28/[address]: [facility]AN [facility]OS [facility] De Jesus MD ORDERED: ANAER/AEROB/GS COMMENTS: R LEG SUBCUTANEOUS -------- ---- Procedure Result GRAM STAIN Final Final GRAM POS COCCI CLUSTERS:MODERATE RBC:MODERATE SQUAMOUS EPI CELL:RARE PMN (WBCs):MANY Unless otherwise specified, Testing Performed by: [address] [address] For Inquires, the Physician may contact the Microbiology department at [phone] ANAEROBIC-AEROBIC CULTURE Preliminary Preliminary MANY [STAPHYLOCOCCUS AUREUS (MRSA)] on 08/29/20 at 1351 SEE CULTURE AN663 FOR SUSCEPTIBILITY RESULTS STAPHYLOCOCCUS AUREUS (MRSA) Unless otherwise specified, Testing Performed by: [facility] [address] [place] [address] For Inquires, the Physician may contact the Microbiology department at [phone] --- --------- 36 min pt exam, chart review, > 50% of time spent with exam, chart review, pt care coordination 6-21 pain improving emperic iv antibiotics Postoperatively, wound care, PT, OT and probably longterm facility. ID CONSULT BLOOD CULTURES Operative procedure: Irrigation and debridement right knee with superficial and deep cultures and retention of hardware 18 Procedure Result GRAM STAIN Final Final GRAM POS COCCI CLUSTERS:MODERATE RBC:MANY SQUAMOUS EPI CELL:NOT APPLICABLE PMN (WBCs):MANY Unless otherwise specified, Testing Performed by: [facility] [address] [place] [address] For Inquires, the Physician may contact the Microbiology department at [phone] ANAEROBIC-AEROBIC CULTURE Preliminary Preliminary MANY [STAPHYLOCOCCUS AUREUS (MRSA)] on 06/19/21 at 1351 STAPHYLOCOCCUS AUREUS (MRSA) ANTIMICROBIAL SUSCEPTIBILITY Preliminary Comment POS JC TYPE 38 STAPHYLOCOCCUS AUREUS (MRSA) ANTIBIOTIC RESULT INTERPRETATION AZITHROMYCIN >4 R CLINDAMYCIN <=0.25 R* CEFOXITIN SCREEN >4 POS CIPROFLOXACIN >2 R CEFTAROLINE 1 S DAPTOMYCIN 1 S ERYTHROMYCIN >4 R GENTAMICIN >8 R INDUCIBLE CLINDAMYCIN >4/0.5 POS LINEZOLID 2 S LEVOFLOXACIN >4 R OXACILLIN >2 R PENICILLIN >2 R* RIFAMPIN <=1 S TRIMETHOPRIM/SULFAMETHOXAZOLE >2/38 R TETRACYCLINE >8 R RUN DATE: 08/30/20 [facility] *LIVE* PAGE 2 RUN TIME: 913 Specimen Inquiry SPEC: [id number] PATIENT: YONIS HAIRSTON [id number] (Continued) ----- ------- Procedure Result CONTINUED ON NEXT PAGE RUN DATE: 08/30/20 [facility] *LIVE* PAGE 3 RUN TIME: 913 Specimen Inquiry SPEC: [id number] PATIENT: YONIS HAIRSTON [id number] (Continued) SPEC #: [id number] OFE: 08/27/20 STATUS: RES REQ #: [id number] RECD: 08/28/[address]: JUDIE HUBBARD III, DO SOURCE: LEG ENTR: 08/28/[address]: YAN RIOS MD [facility]: WOUND PULS,[place] De Jesus MD ORDERED: ANAER/AERERIC/GS COMMENTS: R LEG SUBCUTANEOUS Procedure Result GRAM STAIN Final Final GRAM POS COCCI CLUSTERS:MODERATE RBC:MODERATE SQUAMOUS EPI CELL:RARE PMN (WBCs):MANY Unless otherwise specified, Testing Performed by: [address] [address] For Inquires, the Physician may contact the Microbiology department at [phone] ANAEROBIC-AEROBIC CULTURE Preliminary Preliminary MANY [STAPHYLOCOCCUS AUREUS (MRSA)] on 08/29/20 at 1351 SEE CULTURE AN663 FOR SUSCEPTIBILITY RESULTS STAPHYLOCOCCUS AUREUS (MRSA) Unless otherwise specified, Testing Performed by: [address] [address] For Inquires, the Physician may contact the Microbiology department at [phone] 26 min pt exam, chart review, > 50% of time spent with exam, chart review, pt care coordination Cont Daptomycin higher dose 10mg/kg daily (08/30) and Rifampin ( 08/30). Avoid IV vancomycin due to BERHANE . monitor CK closely Follow up labs and cultures. 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 6 pain improving emperic iv antibiotics Postoperatively, wound care, PT, OT and probably longterm facility. ID CONSULT BLOOD CULTURES Operative procedure: Irrigation and debridement right knee with superficial and deep cultures and retention of hardware 08-28 Procedure Result GRAM STAIN Final Final GRAM POS COCCI CLUSTERS:MODERATE RBC:MANY SQUAMOUS EPI CELL:NOT APPLICABLE PMN (WBCs):MANY Unless otherwise specified, Testing Performed by: [address] [address] For Inquires, the Physician may contact the Microbiology department at [phone] ANAEROBIC-AEROBIC CULTURE Preliminary Preliminary MANY [STAPHYLOCOCCUS AUREUS (MRSA)] on 08/29/20 at 1351 STAPHYLOCOCCUS AUREUS (MRSA) ANTIMICROBIAL SUSCEPTIBILITY Preliminary Comment POS JC TYPE 38 STAPHYLOCOCCUS AUREUS (MRSA) ANTIBIOTIC RESULT INTERPRETATION AZITHROMYCIN >4 R CLINDAMYCIN <=0.25 R* CEFOXITIN SCREEN >4 POS CIPROFLOXACIN >2 R CEFTAROLINE 1 S DAPTOMYCIN 1 S ERYTHROMYCIN >4 R GENTAMICIN >8 R INDUCIBLE CLINDAMYCIN >4/0.5 POS LINEZOLID 2 S LEVOFLOXACIN >4 R OXACILLIN >2 R PENICILLIN >2 R* RIFAMPIN <=1 S TRIMETHOPRIM/SULFAMETHOXAZOLE >38 R TETRACYCLINE >8 R RUN DATE: 08/30/20 [facility] *LIVE* PAGE 2 RUN TIME: 913 Specimen Inquiry SPEC: [id number] PATIENT: ANA LUISAYONIS CASAS [id number] (Continued) Procedure Result CONTINUED ON NEXT PAGE RUN DATE: 08/30/20 [facility] *LIVE* PAGE 3 RUN TIME: 913 Specimen Inquiry SPEC: [id number] PATIENT: YONIS HAIRSTON [id number] (Continued) SPEC #: [id number] OFE: 08/27/20 STATUS: RES REQ #: [id number] RECD: 08/28/20-[address]: JUDIE HUBBARD III, DO SOURCE: LEG ENTR: 08/28/[address]: YAN RIOS MD [facility]: WOUND [place] SPENCER MD ORDERED: ANAER/CHAI/KARI COMMENTS: R LEG SUBCUTANEOUS Procedure Result GRAM STAIN Final Final GRAM POS COCCI CLUSTERS:MODERATE RBC:MODERATE SQUAMOUS EPI CELL:RARE PMN (WBCs):MANY Unless otherwise specified, Testing Performed by: [address] [address] For Inquires, the Physician may contact the Microbiology department at [phone] ANAEROBIC-AEROBIC CULTURE Preliminary Preliminary MANY [STAPHYLOCOCCUS AUREUS (MRSA)] on 08/29/20 at 1351 SEE CULTURE AN663 FOR SUSCEPTIBILITY RESULTS STAPHYLOCOCCUS AUREUS (MRSA) Unless otherwise specified, Testing Performed by: [address] [address] For Inquires, the Physician may contact the Microbiology department at [phone] 26 min pt exam, chart review, > 50% of time spent with exam, chart review, pt care coordination Cont Daptomycin higher dose 10mg/kg daily (08/30) and Rifampin ( 08/30). Av oid IV vancomycin due to BERHANE . monitor CK closely Follow up labs and cultures. 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 6 pain improving emperic iv antibiotics Postoperatively, wound care, PT, OT and probably longterm facility. ID CONSULT BLOOD CULTURES Operative procedure: Irrigation and debridement right knee with superficial and deep cultures and retention of hardware 6-18 Procedure Result GRAM STAIN Final Final GRAM POS COCCI CLUSTERS:MODERATE RBC:MANY SQUAMOUS EPI CELL:NOT APPLICABLE PMN (WBCs):MANY Unless otherwise specified, Testing Performed by: [address] [address] For Inquires, the Physician may contact the Microbiology department at [phone] ANAEROBIC-AEROBIC CULTURE Preliminary Preliminary MANY [STAPHYLOCOCCUS AUREUS (MRSA)] on 08/29/20 at 1351 STAPHYLOCOCCUS AUREUS (MRSA) ANTIMICROBIAL SUSCEPTIBILITY Preliminary Comment POS JC TYPE 38 STAPHYLOCOCCUS AUREUS (MRSA) ANTIBIOTIC RESULT INTERPRETATION AZITHROMYCIN >4 R CLINDAMYCIN <=0.25 R* CEFOXITIN SCREEN >4 POS CIPROFLOXACIN >2 R CEFTAROLINE 1 S DAPTOMYCIN 1 S ERYTHROMYCIN >4 R GENTAMICIN >8 R INDUCIBLE CLINDAMYCIN >4/0.5 POS LINEZOLID 2 S LEVOFLOXACIN >4 R OXACILLIN >2 R PENICILLIN >2 R* RIFAMPIN <=1 S TRIMETHOPRIM/SULFAMETHOXAZOLE >2/38 R TETRACYCLINE >8 R -------- ---- RUN DATE: 08/30/20 [facility] *LIVE* PAGE 2 RUN TIME: 913 Specimen Inquiry SPEC: [id number] PATIENT: YONIS HAIRSTON [id number] (Continued) Procedure Result CONTINUED ON NEXT PAGE RUN DATE: 08/30/20 [facility] *LIVE* PAGE 3 RUN TIME: 913 Specimen Inquiry --------- --- SPEC: [id number] PATIENT: YONIS HAIRSTON [id number] (Continued) SPEC #: [id number] OFE: 08/27/20 STATUS: RES REQ #: [id number] RECD: 08/28/20-[address]: JUDIE HUBBARD III, DO SOURCE: LEG ENTR: 08/28/[address]: YAN RIOS MD [facility]: WOUND [place] SPENCER MD ORDERED: SHAHEEN/CHAI/KARI COMMENTS: R LEG SUBCUTANEOUS Procedure Result ------ ------ GRAM STAIN Final Final GRAM POS COCCI CLUSTERS:MODERATE RBC:MODERATE SQUAMOUS EPI CELL:RARE PMN (WBCs):MANY Unless otherwise specified, Testing Performed by: [address] [address] For Inquires, the Physician may contact the Microbiology department at [phone] ANAEROBIC-AEROBIC CULTURE Preliminary Preliminary MANY [STAPHYLOCOCCUS AUREUS (MRSA)] on 08/29/20 at 1351 SEE CULTURE AN663 FOR SUSCEPTIBILITY RESULTS STAPHYLOCOCCUS AUREUS (MRSA) Unless otherwise specified, Testing Performed by: [address] [address] For Inquires, the Physician may contact the Microbiology department at [phone] 36 min pt exam, chart review, > 50% of time spent with exam, chart review, pt care coordination Cont Daptomycin higher dose 10mg/kg daily (08/30) and Rifampin ( 08/30). Avoid IV vancomycin due to BERHANE . monitor CK closely Follow up labs and cultures. 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 further surgical plans per orthopedics if pt is a candidate, . Difficult surgical candidate due to femur implant.... Despite aggressive medical management patient is at high risk of limb loss History of Present Illness History of Present Illness ADMIT DATE: 08/27/2020 CHIEF COMPLAINT: Right knee swelling, pain, discharge. HISTORY OF PRESENT ILLNESS: The patient is a pleasant 89-year-old female who underwent a right knee replacement with Dr. Rossi on 07/21 last month. She was doing relatively well, but then she fell and refractured the knee. I spoke with Dr. Rossi about the procedure. He had to go back in and put in a complex rotating hinge as she did not have much bone left above the previous knee replacement. Postoperatively, she was sent to [place] for rehabilitation. She was doing relatively well once again, but then started having some drainage. Dr. Rossi requested that she be put on a wound VAC. Apparently, the wound VAC situation was not helping much. Dr. Rossi states that it probably was not put on properly. Nevertheless, the patient came to our ER today with more drainage and some swelling and pain. Dr. Rossi called Dr. Cortes and had him do an arthrocentesis. The patient is now being examined on the medical floor, where she is getting ready to go to surgery here in a few minutes. PAST MEDICAL HISTORY: The above-mentioned complex knee replacement twice; arthritis; GERD; hyperlipidemia; hypertension; thyroid surgery; overactive bladder; partial hysterectomy, right; multiple hernia repairs. ALLERGIES: PREDNISONE AND CARAFATE. FAMILY HISTORY: Diabetes. SOCIAL HISTORY: She does not drink, smoke or take drugs. She is retired; has 3 children, one of her daughters is here, she seems to be a very good support for her. MEDICATIONS: Reviewed. Please refer to the MRAD. REVIEW OF SYSTEMS: GENERAL: No history of weight change, weakness or fevers. SKIN: No bruising, hair changes or rashes. EYES: No blurred, double or loss of vision. NOSE AND THROAT: No history of nosebleeds, hoarseness or sore throat. HEART: No history of palpitations, chest pain or shortness of breath on exertion. LUNGS: Denies cough, hemoptysis, wheezing or shortness of breath. GASTROINTESTINAL: Denies changes in appetite, nausea, vomiting, diarrhea or constipation. GENITOURINARY: No history of frequency, urgency, hesitancy or nocturia. NEUROLOGIC: Denies history of numbness, tingling, tremor or weakness. PSYCHIATRIC: No history of panic, anxiety or depression. ENDOCRINE: No history of heat or cold intolerance, polyuria or polydipsia. EXTREMITIES: She complains of right knee pain. Vitals Vitals Vital Signs Date Time Temp Pulse Resp B/P (MAP) Pulse Ox O2 Delivery O2 Flow Rate FiO2 09/02/20 07:00 97.6 77 17 116/61 (79) 95 Room Air 97.6 Physical Exam Physical Exam GENERAL: Alert, oriented x 3, pleasant female, lying in bed comfortably, in no acute distress. HEENT: Normocephalic, atraumatic. Anicteric. NECK: Supple. No JVD. LUNGS: Clear bilaterally. No wheezing. HEART: S1, S2. No gallops or murmurs. ABDOMEN: Soft, obese, nontender, nondistended. EXTREMITIES: Right lower extremity swelling present. Wound VAC in place. Minimal warmth. No surrounding erythema noted. Distal aspect of wound has swelling which appears to be a developing hematoma NEUROLOGIC: Alert, oriented x 3, grossly nonfocal. PSYCHIATRIC: Calm and cooperative. DERMATOLOGIC: Warm, dry, no generalized rash. PIV looks clean. General: Alert, Oriented X3, Cooperative, No acute distress Heart: Regular rate Lungs: Clear Abdomen: Normal bowel sounds, Soft Extremities: No cyanosis Labs LABS Laboratory Tests Test 09/02/20 05:45 White Blood Count 8.0 x10^3/uL (4.0-11.0) Red Blood Count 3.05 x10^6/uL (3.50-5.40) Hemoglobin 9.6 g/dL (12.0-15.5) Hematocrit 28.8 % (36.0-47.0) Mean Corpuscular Volume 94 fL (79-100) Mean Corpuscular Hemoglobin 31 pg (25-35) Mean Corpuscular Hemoglobin Concent 33 g/dL (31-37) Red Cell Distribution Width 14.5 % (11.5-14.5) Platelet Count 261 x10^3/uL (140-400) Neutrophils (%) (Auto) 61 % (31-73) Lymphocytes (%) (Auto) 22 % (24-48) Monocytes (%) (Auto) 14 % (0-9) Eosinophils (%) (Auto) 2 % (0-3) Basophils (%) (Auto) 1 % (0-3) Neutrophils # (Auto) 4.9 x10^3/uL (1.8-7.7) Lymphocytes # (Auto) 1.8 x10^3/uL (1.0-4.8) Monocytes # (Auto) 1.1 x10^3/uL (0.0-1.1) Eosinophils # (Auto) 0.2 x10^3/uL (0.0-0.7) Basophils # (Auto) 0.1 x10^3/uL (0.0-0.2) Sodium Level 141 mmol/L (136-145) Potassium Level 4.2 mmol/L (3.5-5.1) Chloride Level 107 mmol/L (98-107) Carbon Dioxide Level 26 mmol/L (21-32) Anion Gap 8 (6-14) Blood Urea Nitrogen 12 mg/dL (7-20) Creatinine 0.8 mg/dL (0.6-1.0) Estimated GFR (Cockcroft-Gault) 67.5 Glucose Level 101 mg/dL (70-99) Calcium Level 8.0 mg/dL (8.5-10.1) Assessment and Plan Assessmemt and Plan Problems Medical Problems: (1) Cellulitis Status: Acute Comment Review of Relevant I have reviewed the following items fiorella (where applicable) has been applied. Labs Laboratory Tests Test 09/02/20 05:45 White Blood Count 8.0 x10^3/uL (4.0-11.0) Red Blood Count 3.05 x10^6/uL (3.50-5.40) Hemoglobin 9.6 g/dL (12.0-15.5) Hematocrit 28.8 % (36.0-47.0) Mean Corpuscular Volume 94 fL (79-100) Mean Corpuscular Hemoglobin 31 pg (25-35) Mean Corpuscular Hemoglobin Concent 33 g/dL (31-37) Red Cell Distribution Width 14.5 % (11.5-14.5) Platelet Count 261 x10^3/uL (140-400) Neutrophils (%) (Auto) 61 % (31-73) Lymphocytes (%) (Auto) 22 % (24-48) Monocytes (%) (Auto) 14 % (0-9) Eosinophils (%) (Auto) 2 % (0-3) Basophils (%) (Auto) 1 % (0-3) Neutrophils # (Auto) 4.9 x10^3/uL (1.8-7.7) Lymphocytes # (Auto) 1.8 x10^3/uL (1.0-4.8) Monocytes # (Auto) 1.1 x10^3/uL (0.0-1.1) Eosinophils # (Auto) 0.2 x10^3/uL (0.0-0.7) Basophils # (Auto) 0.1 x10^3/uL (0.0-0.2) Sodium Level 141 mmol/L (136-145) Potassium Level 4.2 mmol/L (3.5-5.1) Chloride Level 107 mmol/L (98-107) Carbon Dioxide Level 26 mmol/L (21-32) Anion Gap 8 (6-14) Blood Urea Nitrogen 12 mg/dL (7-20) Creatinine 0.8 mg/dL (0.6-1.0) Estimated GFR (Cockcroft-Gault) 67.5 Glucose Level 101 mg/dL (70-99) Calcium Level 8.0 mg/dL (8.5-10.1) Laboratory Tests Test 09/02/20 05:45 White Blood Count 8.0 x10^3/uL (4.0-11.0) Red Blood Count 3.05 x10^6/uL (3.50-5.40) Hemoglobin 9.6 g/dL (12.0-15.5) Hematocrit 28.8 % (36.0-47.0) Mean Corpuscular Volume 94 fL (79-100) Mean Corpuscular Hemoglobin 31 pg (25-35) Mean Corpuscular Hemoglobin Concent 33 g/dL (31-37) Red Cell Distribution Width 14.5 % (11.5-14.5) Platelet Count 261 x10^3/uL (140-400) Neutrophils (%) (Auto) 61 % (31-73) Lymphocytes (%) (Auto) 22 % (24-48) Monocytes (%) (Auto) 14 % (0-9) Eosinophils (%) (Auto) 2 % (0-3) Basophils (%) (Auto) 1 % (0-3) Neutrophils # (Auto) 4.9 x10^3/uL (1.8-7.7) Lymphocytes # (Auto) 1.8 x10^3/uL (1.0-4.8) Monocytes # (Auto) 1.1 x10^3/uL (0.0-1.1) Eosinophils # (Auto) 0.2 x10^3/uL (0.0-0.7) Basophils # (Auto) 0.1 x10^3/uL (0.0-0.2) Sodium Level 141 mmol/L (136-145) Potassium Level 4.2 mmol/L (3.5-5.1) Chloride Level 107 mmol/L (98-107) Carbon Dioxide Level 26 mmol/L (21-32) Anion Gap 8 (6-14) Blood Urea Nitrogen 12 mg/dL (7-20) Creatinine 0.8 mg/dL (0.6-1.0) Estimated GFR (Cockcroft-Gault) 67.5 Glucose Level 101 mg/dL (70-99) Calcium Level 8.0 mg/dL (8.5-10.1) Microbiology 08/27/20 Gram Stain - Final, Complete 08/27/20 Aerobic and Anaerobic Culture - Final, Complete 08/27/20 Antimicrobic Susceptibility - Final, Complete 08/27/20 AFB Specimen Processing Tissue - Final, Resulted 08/27/20 Acid Fast Bacilli Culture, Resulted Pending 08/27/20 Gram Stain - Final, Resulted 08/27/20 Fungal Culture, Resulted Pending 08/27/20 Fungal Culture Result 1, Resulted Pending 08/27/20 Blood Culture - Final, Complete NO GROWTH AFTER 5 DAYS Medications Current Medications Vancomycin HCl 1 gm/Sodium Chloride 250 ml @ 166.667 mls/hr 1X ONCE IV ; Start 08/27/20 at 14:00; Stop 08/27/20 at 14:04; Status DC Vancomycin HCl 1.75 gm/Sodium Chloride 500 ml @ 250 mls/hr 1X ONCE IV Last administered on 08/27/20at 15:13; Start 08/27/20 at 14:30; Stop 08/27/20 at 16:29; Status DC Sodium Chloride 1,000 ml @ 1,000 mls/hr 1X ONCE IV Last administered on 08/27/20at 15:12; Start 08/27/20 at 14:15; Stop 08/27/20 at 15:14; Status DC Fentanyl Citrate (Fentanyl 2ml Vial) 25 mcg PRN Q5MIN PRN IVP MILD PAIN 1-3; Start 08/27/20 at 16:30; Stop 08/28/20 at 16:29; Status DC Fentanyl Citrate (Fentanyl 2ml Vial) 50 mcg PRN Q5MIN PRN IVP MODERATE PAIN 4-6 Last administered on 08/27/20at 21:50; Start 08/27/20 at 16:30; Stop 08/28/20 at 16:29; Status DC Morphine Sulfate (Morphine Sulfate) 1 mg PRN Q10MIN PRN IVP SEVERE PAIN 7-10 Last administered on 08/27/20at 22:13; Start 08/27/20 at 16:30; Stop 08/28/20 at 16:29; Status DC Ringer's Solution 1,000 ml @ 30 mls/hr Q24H IV ; Start 08/27/20 at 16:30; Stop 08/28/20 at 04:29; Status DC Hydromorphone HCl (Dilaudid) 0.5 mg PRN Q10MIN PRN IVP SEVERE PAIN 7-10, 2nd CHOICE Last administered on 08/27/20at 22:24; Start 08/27/20 at 16:30; Stop 08/28/20 at 16:29; Status DC Prochlorperazine Edisylate (Compazine) 5 mg PACU PRN PRN IVP NAUSEA, MRX1; Start 08/27/20 at 16:30; Stop 08/28/20 at 16:29; Status DC Propofol (Diprivan) 200 mg STK-MED ONCE IV ; Start 08/27/20 at 19:50; Stop 08/27/20 at 19:51; Status DC Lidocaine HCl (Lidocaine Pf 2% Vial) 5 ml STK-MED ONCE .ROUTE ; Start 08/27/20 at 19:50; Stop 08/27/20 at 19:51; Status DC Fentanyl Citrate (Fentanyl 2ml Vial) 100 mcg STK-MED ONCE .ROUTE ; Start 08/27/20 at 19:58; Stop 08/27/20 at 19:58; Status DC Ondansetron HCl (Zofran) 4 mg STK-MED ONCE .ROUTE ; Start 08/27/20 at 20:36; Stop 08/27/20 at 20:37; Status DC Dexamethasone Sodium Phosphate (Decadron) 4 mg STK-MED ONCE .ROUTE ; Start 08/27/20 at 20:36; Stop 08/27/20 at 20:37; Status DC Phenylephrine HCl (PHENYLEPHRINE in 0.9% NACL PF) 1 mg STK-MED ONCE IV ; Start 08/27/20 at 20:37; Stop 08/27/20 at 20:37; Status DC Sevoflurane (Ultane) 60 ml STK-MED ONCE IH ; Start 08/27/20 at 21:22; Stop 08/27/20 at 21:22; Status DC Fentanyl Citrate (Fentanyl 2ml Vial) 100 mcg STK-MED ONCE .ROUTE ; Start 08/27/20 at 21:45; Stop 08/27/20 at 21:45; Status DC Morphine Sulfate (Morphine Sulfate) 2 mg STK-MED ONCE .ROUTE ; Start 08/27/20 at 22:01; Stop 08/27/20 at 22:01; Status DC Hydromorphone HCl (Dilaudid) 2 mg STK-MED ONCE .ROUTE ; Start 08/27/20 at 22:21; Stop 08/27/20 at 22:21; Status DC Sodium Chloride 1,000 ml @ 75 mls/hr [id number] IV Last administered on 08/30/20at 02:38; Start 08/28/20 at 09:45; Stop 08/30/20 at 15:48; Status DC Daptomycin 410 mg/ Sodium Chloride 50 ml @ 100 mls/hr Q24H IV Last administered on 08/29/20at 13:15; Start 08/28/20 at 12:30; Stop 08/30/20 at 10:11; Status DC Piperacillin Sod/ Tazobactam Sod 3.375 gm/Sodium Chloride 50 ml @ 100 mls/hr Q6HRS IV Last administered on 08/30/20at 05:57; Start 08/28/20 at 12:00; Stop 08/30/20 at 10:11; Status DC Acetaminophen (Tylenol) 1,000 mg PRN BID PRN PO MILD PAIN / TEMP > 100.3'F Last administered on 09/02/20at 03:41; Start 08/28/20 at 14:45 Docusate Sodium (Colace) 100 mg BID PO Last administered on 09/02/20at 08:38; Start 08/28/20 at 21:00 Levothyroxine Sodium (Synthroid) 88 mcg DAILY07 PO Last administered on 09/02/20at 06:29; Start 08/29/20 at 07:00 Simvastatin (Zocor) 20 mg HS PO Last administered on 09/01/20at 21:22; Start 08/28/20 at 21:00 Tramadol HCl (Ultram) 50 mg PRN Q4HRS PRN PO MODERATE-SEVERE PAIN Last administered on 08/28/20at 15:01; Start 08/28/20 at 14:45 Vitamin D (Vitamin D3) 2,000 unit DAILY PO Last administered on 09/02/20at 08:38; Start 08/29/20 at 09:00 Non-Formulary Medication (Melatonin ) 1 tab QHS PO ; Start 08/28/20 at 21:00; Status UNV Multivitamins (Thera M Plus) 1 tab DAILY PO Last administered on 09/02/20at 08:38; Start 08/29/20 at 09:00 Pantoprazole Sodium (Protonix) 40 mg DAILYAC PO Last administered on 09/02/20at 08:38; Start 08/29/20 at 07:30 Oxybutynin Chloride (Ditropan) 5 mg [id number] PO Last administered on 09/02/20at 06:30; Start 08/28/20 at 21:00 Lactobacillus Rhamnosus (Culturelle) 1 cap BID PO Last administered on 09/02/20at 08:38; Start 08/29/20 at 21:00 Rifampin (Rifadin) 300 mg BID PO Last administered on 09/02/20at 08:38; Start 08/30/20 at 11:00 Daptomycin 550 mg/ Sodium Chloride 50 ml @ 100 mls/hr Q24H IV Last administered on 09/01/20at 14:22; Start 08/30/20 at 12:30 Active Scripts Active Reported Acetaminophen 500 Mg Tablet 2 Tab PO PRN BID PRN 30 Days Tramadol Hcl 50 Mg Tablet 50 Mg PO Q4HRS PRN Melatonin 5 Mg Tab.rapdis 1 Tab PO QHS 30 Days Colace (Docusate Sodium) 100 Mg Capsule 1 Cap PO BID 30 Days Vesicare (Solifenacin Succinate) 10 Mg Tablet 1 Tab PO DAILY 30 Days Levothyroxine Sodium 88 Mcg Tablet 1 Tab PO DAILY Omeprazole 20 Mg Capsule. 1 Cap PO DAILY Vitamin D3 (Cholecalciferol (Vitamin D3)) 2,000 Unit Tablet 2,000 Unit PO DAILY Once Daily (Multivitamin) 1 Each Tablet 1 Each PO DAILY Simvastatin 20 Mg Tablet 20 Mg PO HS Vitals/I & O Vital Sign - Last 24 Hours 09/01/20 09/01/20 09/01/20 09/01/20 11:00 15:00 19:00 19:50 Temp 98.5 98.1 99.1 98.5 98.1 99.1 Pulse 70 70 80 Resp 17 17 16 B/P (MAP) 105/38 (60) 138/53 (81) 107/51 (69) Pulse Ox 98 96 94 O2 Delivery Room Air Room Air Room Air Room Air 09/01/20 09/02/20 09/02/20 23:25 03:04 07:00 Temp 98.4 98.3 97.6 98.4 98.3 97.6 Pulse 80 79 77 Resp 18 18 17 B/P (MAP) 135/54 (81) 137/56 (83) 116/61 (79) Pulse Ox 99 96 95 O2 Delivery Room Air Room Air Room Air Intake and Output 09/01/20 09/01/20 09/02/20 14:53 22:53 06:53 Intake Total 240 ml 360 ml 120 ml Balance 240 ml 360 ml 120 ml Justicifation of Admission Dx: Justifications for Admission: Justification of Admission Dx: N/A SUNSHINE GALEAS MD Sep 02, 2020 09:26
[2020-09-02 11:00] VITALS: BP 120/60
[2020-09-02] MEDS: DAPTOmycin (GENERIC) IVPB 550 MG in IV NORMAL SALINE 50ML 50 ML IV SCH (12:54)
--- NOTE | 2020-09-02 13:18 | PDOC ---
PROGRESS NOTES Date of Service DATE: 09/02/20 TIME: 13:09 Subjective Subjective Problems overnight: Delayed entry from 09/01/2020. Had long discussion with patient and her daughter. Currently she is not feeling sick or significant knee pain. Knee remains weak on getting up Objective Vital Signs Vital Signs Date Time Temp Pulse Resp B/P (MAP) Pulse Ox O2 Delivery O2 Flow Rate FiO2 09/02/20 11:00 98.4 84 18 120/60 (80) 97 Room Air 98.4 08/28/20 03:00 2.0 Physical Exam Has some slight serous drainage superior aspect of incision and a small fluid collection inferior aspect of incision which remains closed Labs Laboratory Tests Test 09/02/20 05:45 White Blood Count 8.0 x10^3/uL (4.0-11.0) Red Blood Count 3.05 x10^6/uL (3.50-5.40) Hemoglobin 9.6 g/dL (12.0-15.5) Hematocrit 28.8 % (36.0-47.0) Mean Corpuscular Volume 94 fL (79-100) Mean Corpuscular Hemoglobin 31 pg (25-35) Mean Corpuscular Hemoglobin Concent 33 g/dL (31-37) Red Cell Distribution Width 14.5 % (11.5-14.5) Platelet Count 261 x10^3/uL (140-400) Neutrophils (%) (Auto) 61 % (31-73) Lymphocytes (%) (Auto) 22 % (24-48) Monocytes (%) (Auto) 14 % (0-9) Eosinophils (%) (Auto) 2 % (0-3) Basophils (%) (Auto) 1 % (0-3) Neutrophils # (Auto) 4.9 x10^3/uL (1.8-7.7) Lymphocytes # (Auto) 1.8 x10^3/uL (1.0-4.8) Monocytes # (Auto) 1.1 x10^3/uL (0.0-1.1) Eosinophils # (Auto) 0.2 x10^3/uL (0.0-0.7) Basophils # (Auto) 0.1 x10^3/uL (0.0-0.2) Sodium Level 141 mmol/L (136-145) Potassium Level 4.2 mmol/L (3.5-5.1) Chloride Level 107 mmol/L (98-107) Carbon Dioxide Level 26 mmol/L (21-32) Anion Gap 8 (6-14) Blood Urea Nitrogen 12 mg/dL (7-20) Creatinine 0.8 mg/dL (0.6-1.0) Estimated GFR (Cockcroft-Gault) 67.5 Glucose Level 101 mg/dL (70-99) Calcium Level 8.0 mg/dL (8.5-10.1) Laboratory Tests Test 09/02/20 05:45 White Blood Count 8.0 x10^3/uL (4.0-11.0) Red Blood Count 3.05 x10^6/uL (3.50-5.40) Hemoglobin 9.6 g/dL (12.0-15.5) Hematocrit 28.8 % (36.0-47.0) Mean Corpuscular Volume 94 fL (79-100) Mean Corpuscular Hemoglobin 31 pg (25-35) Mean Corpuscular Hemoglobin Concent 33 g/dL (31-37) Red Cell Distribution Width 14.5 % (11.5-14.5) Platelet Count 261 x10^3/uL (140-400) Neutrophils (%) (Auto) 61 % (31-73) Lymphocytes (%) (Auto) 22 % (24-48) Monocytes (%) (Auto) 14 % (0-9) Eosinophils (%) (Auto) 2 % (0-3) Basophils (%) (Auto) 1 % (0-3) Neutrophils # (Auto) 4.9 x10^3/uL (1.8-7.7) Lymphocytes # (Auto) 1.8 x10^3/uL (1.0-4.8) Monocytes # (Auto) 1.1 x10^3/uL (0.0-1.1) Eosinophils # (Auto) 0.2 x10^3/uL (0.0-0.7) Basophils # (Auto) 0.1 x10^3/uL (0.0-0.2) Sodium Level 141 mmol/L (136-145) Potassium Level 4.2 mmol/L (3.5-5.1) Chloride Level 107 mmol/L (98-107) Carbon Dioxide Level 26 mmol/L (21-32) Anion Gap 8 (6-14) Blood Urea Nitrogen 12 mg/dL (7-20) Creatinine 0.8 mg/dL (0.6-1.0) Estimated GFR (Cockcroft-Gault) 67.5 Glucose Level 101 mg/dL (70-99) Calcium Level 8.0 mg/dL (8.5-10.1) Assessment Assessment POD#irrigation debridement right knee infection Plan Plan of Care We had a long discussion about treatment alternatives including the specific condition and a multidrug-resistant MRSA infection. Unfortunately this showed up on all 3 cultures despite the indication of a healed joint and the superficial involvement visibly worse. We talked about the difficulty with retention of the implant and suppression because of very little oral antibiotic options available. We talked about the possibility of implant removal with a antibiotic spacer that keeps the leg stiff. It is possible potentially to retain the spacer and support if infection is eradicated or adequately treated and she is doing reasonably well with activities. The difficulty with this is that she would have a stiff leg and she could potentially have recurrence after the antibiotics dilute out and she still has a foreign body present. This could however if infection was eradicated be a stepping stone to a later reimplantation potentially. Finally we did discuss the increased energy requirements for ambulation with an above-knee amputation. She does not at all want to consider amputation at the present time. We did however cover the more definitive nature of this and less surgery would be expected if this could be eradicated definitively in 1 procedure. Again she does not want to discuss this at all at present. Her preference presently is to retain the existing implant and try some antibiotics and see how the wound does. I did emphasize my discussion with infectious disease that we may not be able to adequately suppress this later as a result of the resistance and lack of sufficient oral antibiotic alternatives. Justicifation of Admission Dx: Justifications for Admission: Justification of Admission Dx: N/A GURU TORRES MD Sep 02, 2020 13:18
--- NOTE | 2020-09-02 14:50 | NUR ---
Wound Care: Orders from Dr. Rossi to place the wound vac back on patient's right knee. Patient agreeable. Skin prepped and a prevena style vac placed on patient's right knee. Drape applied to the outer portions of all sides of the incision, next contact layer applied directly over incision, 2 small foam pieces packed; one in the distal portion of the incision and one in the middle portion of the incision, next one large thin piece of silver foam applied directly over the incision and contact layer. The track pad placed directly on the distal portion of the wound, a good seal maintained at 125mmHg continuous. Wound care will check on the vac tomorrow and monitor the amount of drainage. If vac maintains it may stay for up to one week, wound care will check vac daily. Head to toe assessment completed. The coccyx is reddened but remains blanchable, calazime cream applied and a purple wedge used to turn patient to the right side.
[2020-09-02 15:00] VITALS: BP_SYST 106; BP_SYST 155; BP_DIAS 47; BP_DIAS 77
--- NOTE | 2020-09-02 15:11 | NUR ---
SS following up with discharge planning. SS reviewed pt chart and discussed with pt RN. Pt is currently on room air. COVID19 negative. Pt on IV Daptomycin. PT/OT recommended acute rehabilitation. Pt accepted at [facility], ; fax [phone], pending insurance approval. SS will continue to follow for discharge planning.
[2020-09-02 19:00] VITALS: BP 102/43
[2020-09-02] MEDS: SIMVASTATIN 20 MG TABLET PO SCH (21:01)
[2020-09-02 23:00] VITALS: BP 120/54
[2020-09-03 03:00] VITALS: BP 120/62
[2020-09-03] MEDS: ACETAMINOPHEN 500 MG TABLET PO PRN (03:11)
[2020-09-03] MEDS: LEVOTHYROXINE 88 MCG TABLET PO SCH (06:02)
[2020-09-03] MEDS: PANTOPRAZOLE 40 MG TABLET.DR. PO SCH (06:03)
[2020-09-03 07:00] VITALS: BP 110/47
[2020-09-03] MEDS: CHOLECALCIFEROL (VITAMIN D3) 1,000 UNIT TABLET PO SCH (08:19)
[2020-09-03] MEDS: MULTIVITAMIN with MINERAL TABLET. PO SCH (08:19)
[2020-09-03] MEDS: riFAMpin 300 MG CAPSULE. PO SCH ×2 (08:19→21:27)
[2020-09-03] MEDS: DOCUSATE SODIUM 100 MG CAPSULE. PO SCH ×2 (08:19→21:00)
[2020-09-03] MEDS: OXYBUTYNIN CHLORIDE 5 MG TABLET PO SCH ×3 (08:20→21:28)
[2020-09-03] MEDS: LACTOBACILLUS RHAMNOSUS GG 1 CAPSULE. PO SCH ×2 (08:20→21:28)
--- NOTE | 2020-09-03 09:42 | NUR ---
SW following. Discussed with RN, pt accepted at [facility] - pending insurance auth. SW will continue to follow.
--- NOTE | 2020-09-03 09:52 | PDOC ---
Infectious Disease Note Subjective: Subjective Patient without complaints Drainage from right lower extremity incision site resolved after wound VAC placement yesterday Denies fever, nausea, vomiting, shortness of breath, diarrhea, abdominal pain, rash Otherwise as above Vital Signs: Vital Signs Vital Signs Date Time Temp Pulse Resp B/P (MAP) Pulse Ox O2 Delivery O2 Flow Rate FiO2 09/03/20 07:38 Room Air 09/03/20 07:00 98.0 83 18 110/47 (68 97 98.0 Physical Exam: PHYSICAL EXAM GENERAL: Alert, oriented x 3, pleasant female, lying in bed comfortably, in no acute distress. HEENT: Normocephalic, atraumatic. Anicteric. NECK: Supple. No JVD. LUNGS: Clear bilaterally. No wheezing. HEART: S1, S2. No gallops or murmurs. ABDOMEN: Soft, obese, nontender, nondistended. EXTREMITIES: Right lower extremity swelling present. Wound VAC in place. Minimal warmth. No surrounding erythema noted. Distal aspect of wound has swelling which appears to be a developing hematoma NEUROLOGIC: Alert, oriented x 3, grossly nonfocal. PSYCHIATRIC: Calm and cooperative. DERMATOLOGIC: Warm, dry, no generalized rash. PIV looks clean. Medications: Inpatient Meds: Medications reviewed. Labs: Micro RUN DATE: 08/30/20 [facility] *LIVE* PAGE 1 RUN TIME: 913 Specimen Inquiry PATIENT: MARIKAYONIS ACCT: [id number] LOC: [address] [place] [address] U: [id number] AGE/SX: 89/F ROOM: 404 RE08/27/[address]: JUDIE HUBBARD III, DO : 1930 BED: 1 DIS: STATUS: ADM IN TLOC: SPEC #: [id number] OFE: 08/27/20 STATUS: RES REQ #: [id number] RECD: 08/28/[address]: JUDIE HUBBARD III, DO SOURCE: KNEE ENTR: 08/28/[address]: YAN RIOS MD [facility] [place]: BEVERLY PERRY MD ORDERED: SHAHEEN/HCAI/KARI COMMENTS: R KNEE JOINT FLUID Procedure Result GRAM STAIN Final Final GRAM POS COCCI CLUSTERS:MODERATE RBC:MANY SQUAMOUS EPI CELL:NOT APPLICABLE PMN (WBCs):MANY Unless otherwise specified, Testing Performed by: [address] [id number] For Inquires, the Physician may contact the Microbiology department at [phone] ANAEROBIC-AEROBIC CULTURE Preliminary Preliminary MANY [STAPHYLOCOCCUS AUREUS (MRSA)] on 08/29/20 at 1351 STAPHYLOCOCCUS AUREUS (MRSA) ANTIMICROBIAL SUSCEPTIBILITY Preliminary Comment POS JC TYPE 38 STAPHYLOCOCCUS AUREUS (MRSA) ANTIBIOTIC RESULT INTERPRETATION AZITHROMYCIN >4 R CLINDAMYCIN <=0.25 R* CEFOXITIN SCREEN >4 POS CIPROFLOXACIN >2 R CEFTAROLINE 1 S DAPTOMYCIN 1 S ERYTHROMYCIN >4 R GENTAMICIN >8 R INDUCIBLE CLINDAMYCIN >4/0.5 POS LINEZOLID 2 S LEVOFLOXACIN >4 R OXACILLIN >2 R PENICILLIN >2 R* RIFAMPIN <=1 S TRIMETHOPRIM/SULFAMETHOXAZOLE >2/38 R TETRACYCLINE >8 R RUN DATE: 08/30/20 [facility] *LIVE* PAGE 2 RUN TIME: 913 Specimen Inquiry SPEC: [id number] PATIENT: YONIS HAIRSTON Francine [id number] (Continued) Procedure Result CONTINUED ON NEXT PAGE RUN DATE: 08/30/20 [facility] *LIVE* PAGE 3 RUN TIME: 913 Specimen Inquiry SPEC: [id number] PATIENT: YONIS HAIRSTON [id number] (Continued) Procedure Result - ANTIMICROBIAL SUSCEPTIBILITY Preliminary (continued) VANCOMYCIN 1 S Unless otherwise specified, Testing Performed by: [address] [id number] For Inquires, the Physician may contact the Microbiology department at [phone] Objective: Assessment: MRSA Complicated RT Knee arthroplasty infection ( R to bactrim and Doxycycline, S to Rifampin) 1.. Right knee postop site drainage,hematoma with infection Status post synovial aspirate on 08/27/2020, WBC 2100, RBC 102,000, 98%PMNs. Cult MRSA 2. MRSA Right knee periprosthetic joint infection. S/P Irrigation and debridement right knee with superficial and deep cultures and retention of hardware Jt Fluid cultures done per DR Rossi + MRSA Subcut tissue cult positive for MRSA 3. Fever 4. 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 5. Supracondylar fracture just above the knee joint 6. Status post removal of the components and placement of distal femoral replacement with a rotating hinge construct for periprosthetic distal femur fracture above well-fixated right total knee arthroplasty, 08/01/2020. 7. 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 8. Degenerative joint disease. 9. Bandemia. 10. Lactic acidosis. 11. Hypertension/hyperlipidemia. 12. History of chronic kidney disease. Plan: Plan of Care Cont Daptomycin higher dose 10mg/kg daily (08/30) and Rifampin ( 08/30). Avoid IV vancomycin due to BERHANE . Side effects of antibiotics discussed at length, monitor CK twice a week Monitor LFTs once a week Last CK was 9 on August 31 Pharmacy to assist with drug drug interactions for rifampin with other meds Will need IV antibiotics for at least 6 weeks Follow up labs and cultures. F/U minocycline susceptibilities to MRSA. Discussed with micro lab Due to MRSA on cultures,pt would need hardware explant It is a difficult situation as there are no oral chronic suppressive agents available after completion of IV antibiotics and Antibiotic alone may not be optimal especially for MRSA prosthetic joint infection Further surgical plans per orthopedics if pt is a candidate, . D/W Dr Rossi. Difficult surgical candidate due to femur implant.... Despite aggressive medical management patient is at high risk of limb loss Wound /VAC care as directed by Orthopedics. PT and OT as directed Continue supportive care. Discussed with patient's two daughters at bedside today INES RIOS MD Sep 03, 2020 09:52
--- NOTE | 2020-09-03 10:46 | PDOC ---
PROGRESS NOTES Date of Service: DATE: 09/03/20 TIME: 10:46 Chief Complaint Chief Complaint ASSESSMENT Right knee swelling and discharge and pain after 2 recent knee replacements. Ms. Hairston is a 89 old female periprosthetic distal femur fracture above well fixated right total knee arthroplasty with minimal bone available for distal fixation. JULY 2020 She had removal of components and placement of a distal femoral replacement with rotating hinge construct. FEVER T MAX 101.6F 6-17 SEPSIS PLAN ADMIT hold off on antibiotics until he takes the patient to surgery Postoperatively, she is going to need wound care, PT, OT and probably alf facility. ID CONSULT BLOOD CULTURES Operative procedure: Irrigation and debridement right knee with superficial and deep cultures and retention of hardware 6-18 6-18 hold off on antibiotics until he takes the patient to surgery Postoperatively, she is going to need wound care, PT, OT and probably alf facility. ID CONSULT BLOOD CULTURES Operative procedure: Irrigation and debridement right knee with superficial and deep cultures and retention of hardware 6-18 37 min pt exam, chart review, > 50% of time spent with exam, chart review, pt care coordination 6-19 emperic iv antibiotics Postoperatively, she is going to need wound care, PT, OT and probably alf facility. ID CONSULT BLOOD CULTURES Operative procedure: Irrigation and debridement right knee with superficial and deep cultures and retention of hardware 6-18 38 min pt exam, chart review, > 50% of time spent with exam, chart review, pt care coordination 6-20 pain improving emperic iv antibiotics Postoperatively, wound care, PT, OT and probably alf facility. ID CONSULT BLOOD CULTURES Operative procedure: Irrigation and debridement right knee with superficial and deep cultures and retention of hardware 618 Procedure Result GRAM STAIN Final Final GRAM POS COCCI CLUSTERS:MODERATE RBC:MANY SQUAMOUS EPI CELL:NOT APPLICABLE PMN (WBCs):MANY Unless otherwise specified, Testing Performed by: [address] [address] For Inquires, the Physician may contact the Microbiology department at [phone] ANAEROBIC-AEROBIC CULTURE Preliminary Preliminary MANY [STAPHYLOCOCCUS AUREUS (MRSA)] on 08/29/20 at 1351 STAPHYLOCOCCUS AUREUS (MRSA) ANTIMICROBIAL SUSCEPTIBILITY Preliminary Comment POS JC TYPE 38 STAPHYLOCOCCUS AUREUS (MRSA) ANTIBIOTIC RESULT INTERPRETATION AZITHROMYCIN >4 R CLINDAMYCIN <=0.25 R* CEFOXITIN SCREEN >4 POS CIPROFLOXACIN >2 R CEFTAROLINE 1 S DAPTOMYCIN 1 S ERYTHROMYCIN >4 R GENTAMICIN >8 R INDUCIBLE CLINDAMYCIN >4/0.5 POS LINEZOLID 2 S LEVOFLOXACIN >4 R OXACILLIN >2 R PENICILLIN >2 R* RIFAMPIN <=1 S TRIMETHOPRIM/SULFAMETHOXAZOLE >2/38 R TETRACYCLINE >8 R RUN DATE: 08/30/20 [place] [facility] *LIVE* PAGE 2 RUN TIME: 913 Specimen Inquiry SPEC: [id number] PATIENT: MARIKAYONIS [id number] (Continued) Procedure Result CONTINUED ON NEXT PAGE RUN DATE: 08/30/20 [place] [facility] *LIVE* PAGE 3 RUN TIME: 0914 Specimen Inquiry SPEC: [id number] PATIENT: YONIS HAIRSTON [id number] (Continued) SPEC #: [id number] OFE: 08/27/20 STATUS: RES REQ #: [id number] RECD: 08/28/[address]: JUDIE HUBBARD III, DO SOURCE: LEG ENTR: 08/28/[address]: YAN RIOS [facility] De Jesus MD ORDERED: ANAER/AEROB/GS COMMENTS: R LEG SUBCUTANEOUS -------- ---- Procedure Result GRAM STAIN Final Final GRAM POS COCCI CLUSTERS:MODERATE RBC:MODERATE SQUAMOUS EPI CELL:RARE PMN (WBCs):MANY Unless otherwise specified, Testing Performed by: [address] [address] For Inquires, the Physician may contact the Microbiology department at [phone] ANAEROBIC-AEROBIC CULTURE Preliminary Preliminary MANY [STAPHYLOCOCCUS AUREUS (MRSA)] on 08/29/20 at 1351 SEE CULTURE AN663 FOR SUSCEPTIBILITY RESULTS STAPHYLOCOCCUS AUREUS (MRSA) Unless otherwise specified, Testing Performed by: [facility] [address] [place] [address] For Inquires, the Physician may contact the Microbiology department at [phone] --- --------- 36 min pt exam, chart review, > 50% of time spent with exam, chart review, pt care coordination 6-21 pain improving emperic iv antibiotics Postoperatively, wound care, PT, OT and probably alf facility. ID CONSULT BLOOD CULTURES Operative procedure: Irrigation and debridement right knee with superficial and deep cultures and retention of hardware 18 Procedure Result GRAM STAIN Final Final GRAM POS COCCI CLUSTERS:MODERATE RBC:MANY SQUAMOUS EPI CELL:NOT APPLICABLE PMN (WBCs):MANY Unless otherwise specified, Testing Performed by: [facility] [address] [place] [address] For Inquires, the Physician may contact the Microbiology department at [phone] ANAEROBIC-AEROBIC CULTURE Preliminary Preliminary MANY [STAPHYLOCOCCUS AUREUS (MRSA)] on 06/19/21 at 1351 STAPHYLOCOCCUS AUREUS (MRSA) ANTIMICROBIAL SUSCEPTIBILITY Preliminary Comment POS JC TYPE 38 STAPHYLOCOCCUS AUREUS (MRSA) ANTIBIOTIC RESULT INTERPRETATION AZITHROMYCIN >4 R CLINDAMYCIN <=0.25 R* CEFOXITIN SCREEN >4 POS CIPROFLOXACIN >2 R CEFTAROLINE 1 S DAPTOMYCIN 1 S ERYTHROMYCIN >4 R GENTAMICIN >8 R INDUCIBLE CLINDAMYCIN >4/0.5 POS LINEZOLID 2 S LEVOFLOXACIN >4 R OXACILLIN >2 R PENICILLIN >2 R* RIFAMPIN <=1 S TRIMETHOPRIM/SULFAMETHOXAZOLE >2/38 R TETRACYCLINE >8 R RUN DATE: 08/30/20 [facility] *LIVE* PAGE 2 RUN TIME: 913 Specimen Inquiry SPEC: [id number] PATIENT: YONIS HAIRSTON [id number] (Continued) ----- ------- Procedure Result CONTINUED ON NEXT PAGE RUN DATE: 08/30/20 [facility] *LIVE* PAGE 3 RUN TIME: 913 Specimen Inquiry SPEC: [id number] PATIENT: YONIS HAIRSTON [id number] (Continued) SPEC #: [id number] OFE: 08/27/20 STATUS: RES REQ #: [id number] RECD: 08/28/[address]: JUDIE HUBBARD III, DO SOURCE: LEG ENTR: 08/28/[address]: YAN RIOS MD [facility]: WOUND PULS,BEVERLY De Jesus MD ORDERED: ANAER/AERERIC/GS COMMENTS: R LEG SUBCUTANEOUS Procedure Result GRAM STAIN Final Final GRAM POS COCCI CLUSTERS:MODERATE RBC:MODERATE SQUAMOUS EPI CELL:RARE PMN (WBCs):MANY Unless otherwise specified, Testing Performed by: [address] [address] For Inquires, the Physician may contact the Microbiology department at [phone] ANAEROBIC-AEROBIC CULTURE Preliminary Preliminary MANY [STAPHYLOCOCCUS AUREUS (MRSA)] on 08/29/20 at 1351 SEE CULTURE AN663 FOR SUSCEPTIBILITY RESULTS STAPHYLOCOCCUS AUREUS (MRSA) Unless otherwise specified, Testing Performed by: [address] [address] For Inquires, the Physician may contact the Microbiology department at [phone] 26 min pt exam, chart review, > 50% of time spent with exam, chart review, pt care coordination Cont Daptomycin higher dose 10mg/kg daily (08/30) and Rifampin ( 08/30). Avoid IV vancomycin due to BERHANE . monitor CK closely Follow up labs and cultures. 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 6 pain improving emperic iv antibiotics Postoperatively, wound care, PT, OT and probably alf facility. ID CONSULT BLOOD CULTURES Operative procedure: Irrigation and debridement right knee with superficial and deep cultures and retention of hardware 08-28 Procedure Result GRAM STAIN Final Final GRAM POS COCCI CLUSTERS:MODERATE RBC:MANY SQUAMOUS EPI CELL:NOT APPLICABLE PMN (WBCs):MANY Unless otherwise specified, Testing Performed by: [address] [address] For Inquires, the Physician may contact the Microbiology department at [phone] ANAEROBIC-AEROBIC CULTURE Preliminary Preliminary MANY [STAPHYLOCOCCUS AUREUS (MRSA)] on 08/29/20 at 1351 STAPHYLOCOCCUS AUREUS (MRSA) ANTIMICROBIAL SUSCEPTIBILITY Preliminary Comment POS JC TYPE 38 STAPHYLOCOCCUS AUREUS (MRSA) ANTIBIOTIC RESULT INTERPRETATION AZITHROMYCIN >4 R CLINDAMYCIN <=0.25 R* CEFOXITIN SCREEN >4 POS CIPROFLOXACIN >2 R CEFTAROLINE 1 S DAPTOMYCIN 1 S ERYTHROMYCIN >4 R GENTAMICIN >8 R INDUCIBLE CLINDAMYCIN >4/0.5 POS LINEZOLID 2 S LEVOFLOXACIN >4 R OXACILLIN >2 R PENICILLIN >2 R* RIFAMPIN <=1 S TRIMETHOPRIM/SULFAMETHOXAZOLE >38 R TETRACYCLINE >8 R RUN DATE: 08/30/20 [facility] *LIVE* PAGE 2 RUN TIME: 913 Specimen Inquiry SPEC: [id number] PATIENT: ANA LUISAYONIS CASAS [id number] (Continued) Procedure Result CONTINUED ON NEXT PAGE RUN DATE: 08/30/20 [facility] *LIVE* PAGE 3 RUN TIME: 913 Specimen Inquiry SPEC: [id number] PATIENT: YONIS HAIRSTON [id number] (Continued) SPEC #: [id number] OFE: 08/27/20 STATUS: RES REQ #: [id number] RECD: 08/28/20-[address]: JUDIE HUBBARD III, DO SOURCE: LEG ENTR: 08/28/[address]: YAN RIOS MD [facility]: WOUND BEVERLY SPENCER MD ORDERED: ANAER/CHAI/KARI COMMENTS: R LEG SUBCUTANEOUS Procedure Result GRAM STAIN Final Final GRAM POS COCCI CLUSTERS:MODERATE RBC:MODERATE SQUAMOUS EPI CELL:RARE PMN (WBCs):MANY Unless otherwise specified, Testing Performed by: [address] [address] For Inquires, the Physician may contact the Microbiology department at [phone] ANAEROBIC-AEROBIC CULTURE Preliminary Preliminary MANY [STAPHYLOCOCCUS AUREUS (MRSA)] on 08/29/20 at 1351 SEE CULTURE AN663 FOR SUSCEPTIBILITY RESULTS STAPHYLOCOCCUS AUREUS (MRSA) Unless otherwise specified, Testing Performed by: [address] [address] For Inquires, the Physician may contact the Microbiology department at [phone] 26 min pt exam, chart review, > 50% of time spent with exam, chart review, pt care coordination Cont Daptomycin higher dose 10mg/kg daily (08/30) and Rifampin ( 08/30). Av oid IV vancomycin due to BERHANE . monitor CK closely Follow up labs and cultures. 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 6 pain improving emperic iv antibiotics Postoperatively, wound care, PT, OT and probably alf facility. ID CONSULT BLOOD CULTURES Operative procedure: Irrigation and debridement right knee with superficial and deep cultures and retention of hardware 6-18 Procedure Result GRAM STAIN Final Final GRAM POS COCCI CLUSTERS:MODERATE RBC:MANY SQUAMOUS EPI CELL:NOT APPLICABLE PMN (WBCs):MANY Unless otherwise specified, Testing Performed by: [address] [address] For Inquires, the Physician may contact the Microbiology department at [phone] ANAEROBIC-AEROBIC CULTURE Preliminary Preliminary MANY [STAPHYLOCOCCUS AUREUS (MRSA)] on 08/29/20 at 1351 STAPHYLOCOCCUS AUREUS (MRSA) ANTIMICROBIAL SUSCEPTIBILITY Preliminary Comment POS JC TYPE 38 STAPHYLOCOCCUS AUREUS (MRSA) ANTIBIOTIC RESULT INTERPRETATION AZITHROMYCIN >4 R CLINDAMYCIN <=0.25 R* CEFOXITIN SCREEN >4 POS CIPROFLOXACIN >2 R CEFTAROLINE 1 S DAPTOMYCIN 1 S ERYTHROMYCIN >4 R GENTAMICIN >8 R INDUCIBLE CLINDAMYCIN >4/0.5 POS LINEZOLID 2 S LEVOFLOXACIN >4 R OXACILLIN >2 R PENICILLIN >2 R* RIFAMPIN <=1 S TRIMETHOPRIM/SULFAMETHOXAZOLE >2/38 R TETRACYCLINE >8 R -------- ---- RUN DATE: 08/30/20 [facility] *LIVE* PAGE 2 RUN TIME: 913 Specimen Inquiry SPEC: [id number] PATIENT: YONIS HAIRSTON [id number] (Continued) Procedure Result CONTINUED ON NEXT PAGE RUN DATE: 08/30/20 [facility] *LIVE* PAGE 3 RUN TIME: 913 Specimen Inquiry --------- --- SPEC: [id number] PATIENT: YONIS HAIRSTON [id number] (Continued) SPEC #: [id number] OFE: 08/27/20 STATUS: RES REQ #: [id number] RECD: 08/28/20-[address]: JUDIE HUBBARD III, DO SOURCE: LEG ENTR: 08/28/[address]: YAN RIOS MD [facility]: WOUND BEVERLY SPENCER MD ORDERED: SHAHEEN/CHAI/KARI COMMENTS: R LEG SUBCUTANEOUS Procedure Result ------ ------ GRAM STAIN Final Final GRAM POS COCCI CLUSTERS:MODERATE RBC:MODERATE SQUAMOUS EPI CELL:RARE PMN (WBCs):MANY Unless otherwise specified, Testing Performed by: [address] [address] For Inquires, the Physician may contact the Microbiology department at [phone] ANAEROBIC-AEROBIC CULTURE Preliminary Preliminary MANY [STAPHYLOCOCCUS AUREUS (MRSA)] on 08/29/20 at 1351 SEE CULTURE AN663 FOR SUSCEPTIBILITY RESULTS STAPHYLOCOCCUS AUREUS (MRSA) Unless otherwise specified, Testing Performed by: [address] [address] For Inquires, the Physician may contact the Microbiology department at [phone] 36 min pt exam, chart review, > 50% of time spent with exam, chart review, pt care coordination Cont Daptomycin higher dose 10mg/kg daily (08/30) and Rifampin ( 08/30). Avoid IV vancomycin due to BERHANE . monitor CK closely Follow up labs and cultures. 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 further surgical plans per orthopedics if pt is a candidate, . Difficult surgical candidate due to femur implant.... Despite aggressive medical management patient is at high risk of limb loss 6-24 pain improving emperic iv antibiotics Postoperatively, wound care, PT, OT and probably alf facility. ID CONSULT BLOOD CULTURES Operative procedure: Irrigation and debridement right knee with superficial and deep cultures and retention of hardware 18 Procedure Result GRAM STAIN Final Final GRAM POS COCCI CLUSTERS:MODERATE RBC:MANY SQUAMOUS EPI CELL:NOT APPLICABLE PMN (WBCs):MANY Unless otherwise specified, Testing Performed by: [address] [address] For Inquires, the Physician may contact the Microbiology department at [phone] ANAEROBIC-AEROBIC CULTURE Preliminary Preliminary MANY [STAPHYLOCOCCUS AUREUS (MRSA)] on 08/29/20 at 1351 STAPHYLOCOCCUS AUREUS (MRSA) ANTIMICROBIAL SUSCEPTIBILITY Preliminary Comment POS JC TYPE 38 STAPHYLOCOCCUS AUREUS (MRSA) ANTIBIOTIC RESULT INTERPRETATION AZITHROMYCIN >4 R CLINDAMYCIN <=0.25 R* CEFOXITIN SCREEN >4 POS CIPROFLOXACIN >2 R CEFTAROLINE 1 S DAPTOMYCIN 1 S ERYTHROMYCIN >4 R GENTAMICIN >8 R INDUCIBLE CLINDAMYCIN >4/0.5 POS LINEZOLID 2 S LEVOFLOXACIN >4 R OXACILLIN >2 R PENICILLIN >2 R* RIFAMPIN <=1 S TRIMETHOPRIM/SULFAMETHOXAZOLE >2/38 R TETRACYCLINE >8 R RUN DATE: 08/30/20 [place] [facility] *LIVE* PAGE 2 RUN TIME: 913 Specimen Inquiry SPEC: [id number] PATIENT: YONIS HAIRSTON [id number] (Continued) Procedure Result CONTINUED ON NEXT PAGE RUN DATE: 08/30/20 [facility] *LIVE* PAGE 3 RUN TIME: 913 Specimen Inquiry SPEC: [id number] PATIENT: YONIS HAIRSTON [id number] (Continued) SPEC #: [id number] OFE: 08/27/20 STATUS: RES REQ #: [id number] RECD: 08/28/[address]: JUDIE HUBBARD III, DO SOURCE: LEG ENTR: 08/28/[address]: YAN RIOS MD SPDESC: BEVERLY HAYES MD ORDERED: SHAHEEN/CHAI/KARI COMMENTS: R LEG SUBCUTANEOUS Procedure Result GRAM STAIN Final Final GRAM POS COCCI CLUSTERS:MODERATE RBC:MODERATE SQUAMOUS EPI CELL:RARE PMN (WBCs):MANY Unless otherwise specified, Testing Performed by: [address] [address] For Inquires, the Physician may contact the Microbiology department at [phone] ANAEROBIC-AEROBIC CULTURE Preliminary Preliminary MANY [STAPHYLOCOCCUS AUREUS (MRSA)] on 08/29/20 at 1351 SEE CULTURE AN663 FOR SUSCEPTIBILITY RESULTS STAPHYLOCOCCUS AUREUS (MRSA) Unless otherwise specified, Testing Performed by: [address] [address] For Inquires, the Physician may contact the Microbiology department at [phone] 26 min pt exam, chart review, > 50% of time spent with exam, chart review, pt care coordination Cont Daptomycin higher dose 10mg/kg daily (08/30) and Rifampin ( 08/30). Avoid IV vancomycin due to BERHANE . monitor CK closely Follow up labs and cultures. 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 further surgical plans per orthopedics if pt is a candidate, . Difficult surgical candidate due to femur implant.... Despite aggressive medical management patient is at high risk of limb loss History of Present Illness History of Present Illness ADMIT DATE: 08/27/2020 CHIEF COMPLAINT: Right knee swelling, pain, discharge. HISTORY OF PRESENT ILLNESS: The patient is a pleasant 89-year-old female who underwent a right knee replacement with Dr. Rossi on 07/21 last month. She was doing relatively well, but then she fell and refractured the knee. I spoke with Dr. Rossi about the procedure. He had to go back in and put in a complex rotating hinge as she did not have much bone left above the previous knee replacement. Postoperatively, she was sent to [place] for rehabilitation. She was doing relatively well once again, but then started having some drainage. Dr. Rossi requested that she be put on a wound VAC. Apparently, the wound VAC situation was not helping much. Dr. Rossi states that it probably was not put on properly. Nevertheless, the patient came to our ER today with more drainage and some swelling and pain. Dr. Rossi called Dr. Cortes and had him do an arthrocentesis. The patient is now being examined on the medical floor, where she is getting ready to go to surgery here in a few minutes. PAST MEDICAL HISTORY: The above-mentioned complex knee replacement twice; arthritis; GERD; hyperlipidemia; hypertension; thyroid surgery; overactive bladder; partial hysterectomy, right; multiple hernia repairs. ALLERGIES: PREDNISONE AND CARAFATE. FAMILY HISTORY: Diabetes. SOCIAL HISTORY: She does not drink, smoke or take drugs. She is retired; has 3 children, one of her daughters is here, she seems to be a very good support for her. MEDICATIONS: Reviewed. Please refer to the MRAD. REVIEW OF SYSTEMS: GENERAL: No history of weight change, weakness or fevers. SKIN: No bruising, hair changes or rashes. EYES: No blurred, double or loss of vision. NOSE AND THROAT: No history of nosebleeds, hoarseness or sore throat. HEART: No history of palpitations, chest pain or shortness of breath on exertion. LUNGS: Denies cough, hemoptysis, wheezing or shortness of breath. GASTROINTESTINAL: Denies changes in appetite, nausea, vomiting, diarrhea or constipation. GENITOURINARY: No history of frequency, urgency, hesitancy or nocturia. NEUROLOGIC: Denies history of numbness, tingling, tremor or weakness. PSYCHIATRIC: No history of panic, anxiety or depression. ENDOCRINE: No history of heat or cold intolerance, polyuria or polydipsia. EXTREMITIES: She complains of right knee pain. Vitals Vitals Vital Signs Date Time Temp Pulse Resp B/P (MAP) Pulse Ox O2 Delivery O2 Flow Rate FiO2 09/03/20 07:38 Room Air 09/03/20 07:00 98.0 83 18 110/47 (68) 97 98.0 Physical Exam Physical Exam GENERAL: Alert, oriented x 3, pleasant female, lying in bed comfortably, in no acute distress. HEENT: Normocephalic, atraumatic. Anicteric. NECK: Supple. No JVD. LUNGS: Clear bilaterally. No wheezing. HEART: S1, S2. No gallops or murmurs. ABDOMEN: Soft, obese, nontender, nondistended. EXTREMITIES: Right lower extremity swelling present. Wound VAC in place. Minimal warmth. No surrounding erythema noted. Distal aspect of wound has swelling which appears to be a developing hematoma NEUROLOGIC: Alert, oriented x 3, grossly nonfocal. PSYCHIATRIC: Calm and cooperative. DERMATOLOGIC: Warm, dry, no generalized rash. PIV looks clean. General: Alert, Oriented X3, Cooperative, No acute distress Heart: Regular rate Lungs: Clear Abdomen: Normal bowel sounds, Soft Extremities: No cyanosis Assessment and Plan Assessmemt and Plan Problems Medical Problems: (1) Cellulitis Status: Acute Comment Review of Relevant I have reviewed the following items fiorella (where applicable) has been applied. Labs Laboratory Tests Test 09/02/20 05:45 White Blood Count 8.0 x10^3/uL (4.0-11.0) Red Blood Count 3.05 x10^6/uL (3.50-5.40) Hemoglobin 9.6 g/dL (12.0-15.5) Hematocrit 28.8 % (36.0-47.0) Mean Corpuscular Volume 94 fL (79-100) Mean Corpuscular Hemoglobin 31 pg (25-35) Mean Corpuscular Hemoglobin Concent 33 g/dL (31-37) Red Cell Distribution Width 14.5 % (11.5-14.5) Platelet Count 261 x10^3/uL (140-400) Neutrophils (%) (Auto) 61 % (31-73) Lymphocytes (%) (Auto) 22 % (24-48) Monocytes (%) (Auto) 14 % (0-9) Eosinophils (%) (Auto) 2 % (0-3) Basophils (%) (Auto) 1 % (0-3) Neutrophils # (Auto) 4.9 x10^3/uL (1.8-7.7) Lymphocytes # (Auto) 1.8 x10^3/uL (1.0-4.8) Monocytes # (Auto) 1.1 x10^3/uL (0.0-1.1) Eosinophils # (Auto) 0.2 x10^3/uL (0.0-0.7) Basophils # (Auto) 0.1 x10^3/uL (0.0-0.2) Sodium Level 141 mmol/L (136-145) Potassium Level 4.2 mmol/L (3.5-5.1) Chloride Level 107 mmol/L (98-107) Carbon Dioxide Level 26 mmol/L (21-32) Anion Gap 8 (6-14) Blood Urea Nitrogen 12 mg/dL (7-20) Creatinine 0.8 mg/dL (0.6-1.0) Estimated GFR (Cockcroft-Gault) 67.5 Glucose Level 101 mg/dL (70-99) Calcium Level 8.0 mg/dL (8.5-10.1) Microbiology 08/27/20 Gram Stain - Final, Complete 08/27/20 Aerobic and Anaerobic Culture - Final, Complete 08/27/20 Antimicrobic Susceptibility - Final, Complete 08/27/20 AFB Specimen Processing Tissue - Final, Resulted 08/27/20 Acid Fast Bacilli Culture, Resulted Pending 08/27/20 Gram Stain - Final, Resulted 08/27/20 Fungal Culture, Resulted Pending 08/27/20 Fungal Culture Result 1, Resulted Pending 08/27/20 Blood Culture - Final, Complete NO GROWTH AFTER 5 DAYS Medications Current Medications Vancomycin HCl 1 gm/Sodium Chloride 250 ml @ 166.667 mls/hr 1X ONCE IV ; Start 08/27/20 at 14:00; Stop 08/27/20 at 14:04; Status DC Vancomycin HCl 1.75 gm/Sodium Chloride 500 ml @ 250 mls/hr 1X ONCE IV Last administered on 08/27/20at 15:13; Start 08/27/20 at 14:30; Stop 08/27/20 at 16:29; Status DC Sodium Chloride 1,000 ml @ 1,000 mls/hr 1X ONCE IV Last administered on 08/27/20at 15:12; Start 08/27/20 at 14:15; Stop 08/27/20 at 15:14; Status DC Fentanyl Citrate (Fentanyl 2ml Vial) 25 mcg PRN Q5MIN PRN IVP MILD PAIN 1-3; Start 08/27/20 at 16:30; Stop 08/28/20 at 16:29; Status DC Fentanyl Citrate (Fentanyl 2ml Vial) 50 mcg PRN Q5MIN PRN IVP MODERATE PAIN 4-6 Last administered on 08/27/20at 21:50; Start 08/27/20 at 16:30; Stop 08/28/20 at 16:29; Status DC Morphine Sulfate (Morphine Sulfate) 1 mg PRN Q10MIN PRN IVP SEVERE PAIN 7-10 Last administered on 08/27/20at 22:13; Start 08/27/20 at 16:30; Stop 08/28/20 at 16:29; Status DC Ringer's Solution 1,000 ml @ 30 mls/hr Q24H IV ; Start 08/27/20 at 16:30; Stop 08/28/20 at 04:29; Status DC Hydromorphone HCl (Dilaudid) 0.5 mg PRN Q10MIN PRN IVP SEVERE PAIN 7-10, 2nd CHOICE Last administered on 08/27/20at 22:24; Start 08/27/20 at 16:30; Stop 08/28/20 at 16:29; Status DC Prochlorperazine Edisylate (Compazine) 5 mg PACU PRN PRN IVP NAUSEA, MRX1; Start 08/27/20 at 16:30; Stop 08/28/20 at 16:29; Status DC Propofol (Diprivan) 200 mg STK-MED ONCE IV ; Start 08/27/20 at 19:50; Stop 08/27/20 at 19:51; Status DC Lidocaine HCl (Lidocaine Pf 2% Vial) 5 ml STK-MED ONCE .ROUTE ; Start 08/27/20 at 19:50; Stop 08/27/20 at 19:51; Status DC Fentanyl Citrate (Fentanyl 2ml Vial) 100 mcg STK-MED ONCE .ROUTE ; Start 08/27/20 at 19:58; Stop 08/27/20 at 19:58; Status DC Ondansetron HCl (Zofran) 4 mg STK-MED ONCE .ROUTE ; Start 08/27/20 at 20:36; Stop 08/27/20 at 20:37; Status DC Dexamethasone Sodium Phosphate (Decadron) 4 mg STK-MED ONCE .ROUTE ; Start 08/27/20 at 20:36; Stop 08/27/20 at 20:37; Status DC Phenylephrine HCl (PHENYLEPHRINE in 0.9% NACL PF) 1 mg STK-MED ONCE IV ; Start 08/27/20 at 20:37; Stop 08/27/20 at 20:37; Status DC Sevoflurane (Ultane) 60 ml STK-MED ONCE IH ; Start 08/27/20 at 21:22; Stop 08/27/20 at 21:22; Status DC Fentanyl Citrate (Fentanyl 2ml Vial) 100 mcg STK-MED ONCE .ROUTE ; Start 08/27/20 at 21:45; Stop 08/27/20 at 21:45; Status DC Morphine Sulfate (Morphine Sulfate) 2 mg STK-MED ONCE .ROUTE ; Start 08/27/20 at 22:01; Stop 08/27/20 at 22:01; Status DC Hydromorphone HCl (Dilaudid) 2 mg STK-MED ONCE .ROUTE ; Start 08/27/20 at 22:21; Stop 08/27/20 at 22:21; Status DC Sodium Chloride 1,000 ml @ 75 mls/hr [id number] IV Last administered on 08/30/20at 02:38; Start 08/28/20 at 09:45; Stop 08/30/20 at 15:48; Status DC Daptomycin 410 mg/ Sodium Chloride 50 ml @ 100 mls/hr Q24H IV Last administered on 08/29/20at 13:15; Start 08/28/20 at 12:30; Stop 08/30/20 at 10:11; Status DC Piperacillin Sod/ Tazobactam Sod 3.375 gm/Sodium Chloride 50 ml @ 100 mls/hr Q6HRS IV Last administered on 08/30/20at 05:57; Start 08/28/20 at 12:00; Stop 08/30/20 at 10:11; Status DC Acetaminophen (Tylenol) 1,000 mg PRN BID PRN PO MILD PAIN / TEMP > 100.3'F Last administered on 09/03/20at 03:11; Start 08/28/20 at 14:45 Docusate Sodium (Colace) 100 mg BID PO Last administered on 09/03/20at 08:19; Start 08/28/20 at 21:00 Levothyroxine Sodium (Synthroid) 88 mcg DAILY07 PO Last administered on 09/03/20at 06:02; Start 08/29/20 at 07:00 Simvastatin (Zocor) 20 mg HS PO Last administered on 09/02/20at 21:01; Start 08/28/20 at 21:00 Tramadol HCl (Ultram) 50 mg PRN Q4HRS PRN PO MODERATE-SEVERE PAIN Last adm inistered on 08/28/20at 15:01; Start 08/28/20 at 14:45 Vitamin D (Vitamin D3) 2,000 unit DAILY PO Last administered on 09/03/20at 08:19; Start 08/29/20 at 09:00 Non-Formulary Medication (Melatonin ) 1 tab QHS PO ; Start 08/28/20 at 21:00; Status UNV Multivitamins (Thera M Plus) 1 tab DAILY PO Last administered on 09/03/20at 08:19; Start 08/29/20 at 09:00 Pantoprazole Sodium (Protonix) 40 mg DAILYAC PO Last administered on 09/03/20at 06:03; Start 08/29/20 at 07:30 Oxybutynin Chloride (Ditropan) 5 mg [id number] PO Last administered on 09/03/20at 08:20; Start 08/28/20 at 21:00 Lactobacillus Rhamnosus (Culturelle) 1 cap BID PO Last administered on 09/03/20at 08:20; Start 08/29/20 at 21:00 Rifampin (Rifadin) 300 mg BID PO Last administered on 09/03/20at 08:19; Start 08/30/20 at 11:00 Daptomycin 550 mg/ Sodium Chloride 50 ml @ 100 mls/hr Q24H IV Last administered on 09/02/20at 12:54; Start 08/30/20 at 12:30 Active Scripts Active Reported Acetaminophen 500 Mg Tablet 2 Tab PO PRN BID PRN 30 Days Tramadol Hcl 50 Mg Tablet 50 Mg PO Q4HRS PRN Melatonin 5 Mg Tab.rapdis 1 Tab PO QHS 30 Days Colace (Docusate Sodium) 100 Mg Capsule 1 Cap PO BID 30 Days Vesicare (Solifenacin Succinate) 10 Mg Tablet 1 Tab PO DAILY 30 Days Levothyroxine Sodium 88 Mcg Tablet 1 Tab PO DAILY Omeprazole 20 Mg Capsule. 1 Cap PO DAILY Vitamin D3 (Cholecalciferol (Vitamin D3)) 2,000 Unit Tablet 2,000 Unit PO DAILY Once Daily (Multivitamin) 1 Each Tablet 1 Each PO DAILY Simvastatin 20 Mg Tablet 20 Mg PO HS Vitals/I & O Vital Sign - Last 24 Hours 09/02/20 09/02/20 09/02/2021 11:00 15:00 19:00 20:00 Temp 98.4 98.5 98.1 98.4 98.5 98.1 Pulse 84 85 84 Resp 18 17 18 B/P (MAP) 120/60 (80) 106/47 (66) 102/43 (62) Pulse Ox 97 97 98 O2 Delivery Room Air Room Air Room Air 09/02/20 09/03/20 09/03/20 09/03/20 23:00 03:00 07:00 07:38 Temp 98.6 98.4 98.0 98.6 98.4 98.0 Pulse 88 87 83 Resp 18 16 18 B/P (MAP) 120/54 (76) 120/62 (81) 110/47 (68) Pulse Ox 93 96 97 O2 Delivery Room Air Room Air Intake and Output 09/02/20 09/02/20 09/03/20 15:00 23:00 07:00 Intake Total 120 ml Balance 120 ml Nutrition Consultation Dietary Evaluation: Recommendations by RD: Dietary education by RD, Increase Calorie Intake, Protein supplementation Comments: continue Cardiac diet will send kris bid to promote wound healing continue with mvi Expected Outcomes/Goals: to meet >75% est nutr needs improved wound status Malnutrition Findings: Body Fat Depletion (Non Severe: Mild Depletion Weight Status: Overweight Justicifation of Admission Dx: Justifications for Admission: Justification of Admission Dx: N/A SUNSHINE GALEAS MD Sep 03, 2020 10:46
[2020-09-03 11:00] VITALS: BP 131/47
[2020-09-03] MEDS: DAPTOmycin (GENERIC) IVPB 550 MG in IV NORMAL SALINE 50ML 50 ML IV SCH (12:07)
[2020-09-03 15:00] VITALS: BP 102/46
--- NOTE | 2020-09-03 17:04 | NUR ---
Wound Care: Seen patient to check wound vac application and canister. Dressing C/D/I and canister only about half full. Wound care will continue to follow patient.
[2020-09-03 19:15] VITALS: BP 110/51
[2020-09-03] MEDS: SIMVASTATIN 20 MG TABLET PO SCH (21:27)
[2020-09-03 23:12] VITALS: BP 138/50
[2020-09-04] VITALS (9 sets, daily range): BP systolic 105–160; BP diastolic 40–64
--- NOTE | 2020-09-04 06:55 | PDOC ---
Infectious Disease Note Subjective: Subjective Patient without complaints Awaiting surgery later today Denies fever, nausea, vomiting, shortness of breath, diarrhea, abdominal pain, rash Otherwise as above Vital Signs: Vital Signs Vital Signs Date Time Temp Pulse Resp B/P (MAP) Pulse Ox O2 Delivery O2 Flow Rate FiO2 09/04/20 03:08 98.1 86 18 160/64 (96) 97 Room Air 98.1 Physical Exam: PHYSICAL EXAM GENERAL: Alert, oriented x 3, pleasant female, lying in bed comfortably, in no acute distress. HEENT: Normocephalic, atraumatic. Anicteric. NECK: Supple. No JVD. LUNGS: Clear bilaterally. No wheezing. HEART: S1, S2. No gallops or murmurs. ABDOMEN: Soft, obese, nontender, nondistended. EXTREMITIES: Right lower extremity swelling present. Wound VAC in place. Minimal warmth. No surrounding erythema noted. Distal aspect of wound has swelling which appears to be a developing hematoma NEUROLOGIC: Alert, oriented x 3, grossly nonfocal. PSYCHIATRIC: Calm and cooperative. DERMATOLOGIC: Warm, dry, no generalized rash. PIV looks clean. Medications: Inpatient Meds: Medications reviewed. Labs: Micro RUN DATE: 08/30/20 [facility] LAB *LIVE* PAGE 1 RUN TIME: 913 Specimen Inquiry PATIENT: YONIS HAIRSTON ACCT: [id number] LOC: [address] [place] [address] U: [id number] AGE/SX: 89/F ROOM: [facility] RE08/27/[address]: JUDIE HUBBARD III, DO : 1930 BED: 1 DIS: STATUS: ADM IN TLOC: SPEC #: [id number] OFE: 08/27/20 STATUS: RES REQ #: [id number] RECD: 08/28/[address]: JUDIE HUBBARD III, DO SOURCE: KNEE ENTR: 08/28/[address]: YAN RIOS MD SPDC: BEVERLY PERRY MD ORDERED: SHAHEEN/AERERIC/KARI COMMENTS: R KNEE JOINT FLUID Procedure Result GRAM STAIN Final Final GRAM POS COCCI CLUSTERS:MODERATE RBC:MANY SQUAMOUS EPI CELL:NOT APPLICABLE PMN (WBCs):MANY Unless otherwise specified, Testing Performed by: [address] [address] For Inquires, the Physician may contact the Microbiology department at [phone] ANAEROBIC-AEROBIC CULTURE Preliminary Preliminary MANY [STAPHYLOCOCCUS AUREUS (MRSA)] on 08/29/20 at 1351 STAPHYLOCOCCUS AUREUS (MRSA) ANTIMICROBIAL SUSCEPTIBILITY Preliminary Comment POS JC TYPE 38 STAPHYLOCOCCUS AUREUS (MRSA) ANTIBIOTIC RESULT INTERPRETATION AZITHROMYCIN >4 R CLINDAMYCIN <=0.25 R* CEFOXITIN SCREEN >4 POS CIPROFLOXACIN >2 R CEFTAROLINE 1 S DAPTOMYCIN 1 S ERYTHROMYCIN >4 R GENTAMICIN >8 R INDUCIBLE CLINDAMYCIN >4/0.5 POS LINEZOLID 2 S LEVOFLOXACIN >4 R OXACILLIN >2 R PENICILLIN >2 R* RIFAMPIN <=1 S TRIMETHOPRIM/SULFAMETHOXAZOLE >2/38 R TETRACYCLINE >8 R RUN DATE: 08/30/20 [facility] LAB *LIVE* PAGE 2 RUN TIME: 913 Specimen Inquiry SPEC: [id number] PATIENT: YONIS HAIRSTON [id number] (Continued) --------- --- Procedure Result CONTINUED ON NEXT PAGE RUN DATE: 08/30/20 [facility] *LIVE* PAGE 3 RUN TIME: 913 Specimen Inquiry SPEC: [id number] PATIENT: YONIS HAIRSTON [id number] (Continued) Procedure Result ANTIMICROBIAL SUSCEPTIBILITY Preliminary (continued) VANCOMYCIN 1 S Unless otherwise specified, Testing Performed by: [address] [address] For Inquires, the Physician may contact the Microbiology department at [phone] Objective: Assessment: MRSA Complicated RT Knee arthroplasty infection ( R to bactrim and Doxycycline, S to Rifampin) 1.. Right knee postop site drainage,hematoma with infection Status post synovial aspirate on 08/27/2020, WBC 2100, RBC 102,000, 98%PMNs. Cult MRSA 2. MRSA Right knee periprosthetic joint infection. S/P Irrigation and debridement right knee with superficial and deep cultures and retention of hardware Jt Fluid cultures done per DR Rossi + MRSA Subcut tissue cult positive for MRSA 3. Fever 4. 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 5. Supracondylar fracture just above the knee joint 6. Status post removal of the components and placement of distal femoral replacement with a rotating hinge construct for periprosthetic distal femur fracture above well-fixated right total knee arthroplasty, 08/01/2020. 7. 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 8. Degenerative joint disease. 9. Bandemia. 10. Lactic acidosis. 11. Hypertension/hyperlipidemia. 12. History of chronic kidney disease. Plan: Plan of Care Cont Daptomycin 10mg/kg daily (08/30) and Rifampin ( 08/30). Avoid IV vancomyc in due to BERHANE . Side effects of antibiotics discussed at length, monitor CK twice a week Monitor LFTs once a week Last CK was 9 on August 31 Pharmacy to assist with drug drug interactions for rifampin with other meds Will need IV antibiotics for at least 6 weeks Follow up labs and cultures. F/U minocycline susceptibilities to MRSA. Discussed with micro lab Due to MRSA on cultures,pt would need hardware explant It is a difficult situation as there are no oral chronic suppressive agents available after completion of IV antibiotics and Antibiotic alone may not be optimal especially for MRSA prosthetic joint infection Despite aggressive medical and surgical management patient is at high risk of limb loss Discussed with Dr. Rossi Plans noted for single stage revision by DR Rossi Wound /VAC care as directed by Orthopedics. PT and OT as directed Continue supportive care. Discussed with patient's two daughters this week also INES RIOS MD Sep 04, 2020 06:55
[2020-09-04] MEDS: DOCUSATE SODIUM 100 MG CAPSULE. PO SCH ×2 (07:17→21:00)
[2020-09-04] MEDS: PANTOPRAZOLE 40 MG TABLET.DR. PO SCH ×2 (07:17→07:22)
[2020-09-04] MEDS: riFAMpin 300 MG CAPSULE. PO SCH ×2 (07:18→21:17)
[2020-09-04] MEDS: OXYBUTYNIN CHLORIDE 5 MG TABLET PO SCH ×3 (07:18→21:17)
[2020-09-04] MEDS: CHOLECALCIFEROL (VITAMIN D3) 1,000 UNIT TABLET PO SCH (07:18)
[2020-09-04] MEDS: MULTIVITAMIN with MINERAL TABLET. PO SCH (07:18)
[2020-09-04] MEDS: LACTOBACILLUS RHAMNOSUS GG 1 CAPSULE. PO SCH ×2 (07:18→21:17)
[2020-09-04] MEDS: LEVOTHYROXINE 88 MCG TABLET PO SCH (07:21)
--- NOTE | 2020-09-04 09:48 | PDOC ---
PROGRESS NOTES Date of Service: DATE: 09/04/20 TIME: 09:48 Chief Complaint Chief Complaint ASSESSMENT Right knee swelling and discharge and pain after 2 recent knee replacements. Ms. Hairston is a 89 old female periprosthetic distal femur fracture above well fixated right total knee arthroplasty with minimal bone available for distal fixation. JULY 2020 She had removal of components and placement of a distal femoral replacement with rotating hinge construct. FEVER T MAX 101.6F 6-17 SEPSIS PLAN ADMIT hold off on antibiotics until he takes the patient to surgery Postoperatively, she is going to need wound care, PT, OT and probably jail facility. ID CONSULT BLOOD CULTURES Operative procedure: Irrigation and debridement right knee with superficial and deep cultures and retention of hardware 6-18 6-18 hold off on antibiotics until he takes the patient to surgery Postoperatively, she is going to need wound care, PT, OT and probably jail facility. ID CONSULT BLOOD CULTURES Operative procedure: Irrigation and debridement right knee with superficial and deep cultures and retention of hardware 6-18 37 min pt exam, chart review, > 50% of time spent with exam, chart review, pt care coordination 6-19 emperic iv antibiotics Postoperatively, she is going to need wound care, PT, OT and probably jail facility. ID CONSULT BLOOD CULTURES Operative procedure: Irrigation and debridement right knee with superficial and deep cultures and retention of hardware 6-18 38 min pt exam, chart review, > 50% of time spent with exam, chart review, pt care coordination 6-20 pain improving emperic iv antibiotics Postoperatively, wound care, PT, OT and probably jail facility. ID CONSULT BLOOD CULTURES Operative procedure: Irrigation and debridement right knee with superficial and deep cultures and retention of hardware 618 Procedure Result GRAM STAIN Final Final GRAM POS COCCI CLUSTERS:MODERATE RBC:MANY SQUAMOUS EPI CELL:NOT APPLICABLE PMN (WBCs):MANY Unless otherwise specified, Testing Performed by: [address] [address] For Inquires, the Physician may contact the Microbiology department at [phone] ANAEROBIC-AEROBIC CULTURE Preliminary Preliminary MANY [STAPHYLOCOCCUS AUREUS (MRSA)] on 08/29/20 at 1351 STAPHYLOCOCCUS AUREUS (MRSA) ANTIMICROBIAL SUSCEPTIBILITY Preliminary Comment POS JC TYPE 38 STAPHYLOCOCCUS AUREUS (MRSA) ANTIBIOTIC RESULT INTERPRETATION AZITHROMYCIN >4 R CLINDAMYCIN <=0.25 R* CEFOXITIN SCREEN >4 POS CIPROFLOXACIN >2 R CEFTAROLINE 1 S DAPTOMYCIN 1 S ERYTHROMYCIN >4 R GENTAMICIN >8 R INDUCIBLE CLINDAMYCIN >4/0.5 POS LINEZOLID 2 S LEVOFLOXACIN >4 R OXACILLIN >2 R PENICILLIN >2 R* RIFAMPIN <=1 S TRIMETHOPRIM/SULFAMETHOXAZOLE >2/38 R TETRACYCLINE >8 R RUN DATE: 08/30/20 [facility] *LIVE* PAGE 2 RUN TIME: 913 Specimen Inquiry SPEC: [id number] PATIENT: MARIKAYONIS [id number] (Continued) Procedure Result CONTINUED ON NEXT PAGE RUN DATE: 08/30/20 [facility] *LIVE* PAGE 3 RUN TIME: 0914 Specimen Inquiry SPEC: [id number] PATIENT: YONIS HAIRSTON [id number] (Continued) SPEC #: [id number] OFE: 08/27/20 STATUS: RES REQ #: [id number] RECD: 08/28/[address]: JUDIE HUBBARD III, DO SOURCE: LEG ENTR: 08/28/[address]: [facility]AN RIOS [facility] De Jesus MD ORDERED: ANAER/AEROB/GS COMMENTS: R LEG SUBCUTANEOUS -------- ---- Procedure Result GRAM STAIN Final Final GRAM POS COCCI CLUSTERS:MODERATE RBC:MODERATE SQUAMOUS EPI CELL:RARE PMN (WBCs):MANY Unless otherwise specified, Testing Performed by: [address] [address] For Inquires, the Physician may contact the Microbiology department at [phone] ANAEROBIC-AEROBIC CULTURE Preliminary Preliminary MANY [STAPHYLOCOCCUS AUREUS (MRSA)] on 08/29/20 at 1351 SEE CULTURE AN663 FOR SUSCEPTIBILITY RESULTS STAPHYLOCOCCUS AUREUS (MRSA) Unless otherwise specified, Testing Performed by: [facility] [address] [place] [address] For Inquires, the Physician may contact the Microbiology department at [phone] --- --------- 36 min pt exam, chart review, > 50% of time spent with exam, chart review, pt care coordination 6-21 pain improving emperic iv antibiotics Postoperatively, wound care, PT, OT and probably jail facility. ID CONSULT BLOOD CULTURES Operative procedure: Irrigation and debridement right knee with superficial and deep cultures and retention of hardware 18 Procedure Result GRAM STAIN Final Final GRAM POS COCCI CLUSTERS:MODERATE RBC:MANY SQUAMOUS EPI CELL:NOT APPLICABLE PMN (WBCs):MANY Unless otherwise specified, Testing Performed by: [facility] [address] [place] [address] For Inquires, the Physician may contact the Microbiology department at [phone] ANAEROBIC-AEROBIC CULTURE Preliminary Preliminary MANY [STAPHYLOCOCCUS AUREUS (MRSA)] on 06/19/21 at 1351 STAPHYLOCOCCUS AUREUS (MRSA) ANTIMICROBIAL SUSCEPTIBILITY Preliminary Comment POS JC TYPE 38 STAPHYLOCOCCUS AUREUS (MRSA) ANTIBIOTIC RESULT INTERPRETATION AZITHROMYCIN >4 R CLINDAMYCIN <=0.25 R* CEFOXITIN SCREEN >4 POS CIPROFLOXACIN >2 R CEFTAROLINE 1 S DAPTOMYCIN 1 S ERYTHROMYCIN >4 R GENTAMICIN >8 R INDUCIBLE CLINDAMYCIN >4/0.5 POS LINEZOLID 2 S LEVOFLOXACIN >4 R OXACILLIN >2 R PENICILLIN >2 R* RIFAMPIN <=1 S TRIMETHOPRIM/SULFAMETHOXAZOLE >2/38 R TETRACYCLINE >8 R RUN DATE: 08/30/20 [facility] *LIVE* PAGE 2 RUN TIME: 913 Specimen Inquiry SPEC: [id number] PATIENT: YONIS HAIRSTON [id number] (Continued) ----- ------- Procedure Result CONTINUED ON NEXT PAGE RUN DATE: 08/30/20 [facility] *LIVE* PAGE 3 RUN TIME: 913 Specimen Inquiry SPEC: [id number] PATIENT: YONIS HAIRSTON [id number] (Continued) SPEC #: [id number] OFE: 08/27/20 STATUS: RES REQ #: [id number] RECD: 08/28/[address]: JUDIE HUBBARD III, DO SOURCE: LEG ENTR: 08/28/[address]: YAN RIOS MD [facility]: WOUND PULS,BEVERLY De Jesus MD ORDERED: ANAER/AERERIC/GS COMMENTS: R LEG SUBCUTANEOUS Procedure Result GRAM STAIN Final Final GRAM POS COCCI CLUSTERS:MODERATE RBC:MODERATE SQUAMOUS EPI CELL:RARE PMN (WBCs):MANY Unless otherwise specified, Testing Performed by: [address] [address] For Inquires, the Physician may contact the Microbiology department at [phone] ANAEROBIC-AEROBIC CULTURE Preliminary Preliminary MANY [STAPHYLOCOCCUS AUREUS (MRSA)] on 08/29/20 at 1351 SEE CULTURE AN663 FOR SUSCEPTIBILITY RESULTS STAPHYLOCOCCUS AUREUS (MRSA) Unless otherwise specified, Testing Performed by: [address] [address] For Inquires, the Physician may contact the Microbiology department at [phone] 26 min pt exam, chart review, > 50% of time spent with exam, chart review, pt care coordination Cont Daptomycin higher dose 10mg/kg daily (08/30) and Rifampin ( 08/30). Avoid IV vancomycin due to BERHANE . monitor CK closely Follow up labs and cultures. 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 6 pain improving emperic iv antibiotics Postoperatively, wound care, PT, OT and probably jail facility. ID CONSULT BLOOD CULTURES Operative procedure: Irrigation and debridement right knee with superficial and deep cultures and retention of hardware 08-28 Procedure Result GRAM STAIN Final Final GRAM POS COCCI CLUSTERS:MODERATE RBC:MANY SQUAMOUS EPI CELL:NOT APPLICABLE PMN (WBCs):MANY Unless otherwise specified, Testing Performed by: [address] [address] For Inquires, the Physician may contact the Microbiology department at [phone] ANAEROBIC-AEROBIC CULTURE Preliminary Preliminary MANY [STAPHYLOCOCCUS AUREUS (MRSA)] on 08/29/20 at 1351 STAPHYLOCOCCUS AUREUS (MRSA) ANTIMICROBIAL SUSCEPTIBILITY Preliminary Comment POS JC TYPE 38 STAPHYLOCOCCUS AUREUS (MRSA) ANTIBIOTIC RESULT INTERPRETATION AZITHROMYCIN >4 R CLINDAMYCIN <=0.25 R* CEFOXITIN SCREEN >4 POS CIPROFLOXACIN >2 R CEFTAROLINE 1 S DAPTOMYCIN 1 S ERYTHROMYCIN >4 R GENTAMICIN >8 R INDUCIBLE CLINDAMYCIN >4/0.5 POS LINEZOLID 2 S LEVOFLOXACIN >4 R OXACILLIN >2 R PENICILLIN >2 R* RIFAMPIN <=1 S TRIMETHOPRIM/SULFAMETHOXAZOLE >38 R TETRACYCLINE >8 R RUN DATE: 08/30/20 [facility] *LIVE* PAGE 2 RUN TIME: 913 Specimen Inquiry SPEC: [id number] PATIENT: ANA LUISAYONIS CASAS [id number] (Continued) Procedure Result CONTINUED ON NEXT PAGE RUN DATE: 08/30/20 [facility] *LIVE* PAGE 3 RUN TIME: 913 Specimen Inquiry SPEC: [id number] PATIENT: YONIS HAIRSTON [id number] (Continued) SPEC #: [id number] OFE: 08/27/20 STATUS: RES REQ #: [id number] RECD: 08/28/20-[address]: JUDIE HUBBARD III, DO SOURCE: LEG ENTR: 08/28/[address]: YAN RIOS MD [facility]: WOUND BEVERLY SPENCER MD ORDERED: ANAER/CHAI/KARI COMMENTS: R LEG SUBCUTANEOUS Procedure Result GRAM STAIN Final Final GRAM POS COCCI CLUSTERS:MODERATE RBC:MODERATE SQUAMOUS EPI CELL:RARE PMN (WBCs):MANY Unless otherwise specified, Testing Performed by: [address] [address] For Inquires, the Physician may contact the Microbiology department at [phone] ANAEROBIC-AEROBIC CULTURE Preliminary Preliminary MANY [STAPHYLOCOCCUS AUREUS (MRSA)] on 08/29/20 at 1351 SEE CULTURE AN663 FOR SUSCEPTIBILITY RESULTS STAPHYLOCOCCUS AUREUS (MRSA) Unless otherwise specified, Testing Performed by: [address] [address] For Inquires, the Physician may contact the Microbiology department at [phone] 26 min pt exam, chart review, > 50% of time spent with exam, chart review, pt care coordination Cont Daptomycin higher dose 10mg/kg daily (08/30) and Rifampin ( 08/30). Av oid IV vancomycin due to BERHANE . monitor CK closely Follow up labs and cultures. 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 6 pain improving emperic iv antibiotics Postoperatively, wound care, PT, OT and probably jail facility. ID CONSULT BLOOD CULTURES Operative procedure: Irrigation and debridement right knee with superficial and deep cultures and retention of hardware 6-18 Procedure Result GRAM STAIN Final Final GRAM POS COCCI CLUSTERS:MODERATE RBC:MANY SQUAMOUS EPI CELL:NOT APPLICABLE PMN (WBCs):MANY Unless otherwise specified, Testing Performed by: [address] [address] For Inquires, the Physician may contact the Microbiology department at [phone] ANAEROBIC-AEROBIC CULTURE Preliminary Preliminary MANY [STAPHYLOCOCCUS AUREUS (MRSA)] on 08/29/20 at 1351 STAPHYLOCOCCUS AUREUS (MRSA) ANTIMICROBIAL SUSCEPTIBILITY Preliminary Comment POS JC TYPE 38 STAPHYLOCOCCUS AUREUS (MRSA) ANTIBIOTIC RESULT INTERPRETATION AZITHROMYCIN >4 R CLINDAMYCIN <=0.25 R* CEFOXITIN SCREEN >4 POS CIPROFLOXACIN >2 R CEFTAROLINE 1 S DAPTOMYCIN 1 S ERYTHROMYCIN >4 R GENTAMICIN >8 R INDUCIBLE CLINDAMYCIN >4/0.5 POS LINEZOLID 2 S LEVOFLOXACIN >4 R OXACILLIN >2 R PENICILLIN >2 R* RIFAMPIN <=1 S TRIMETHOPRIM/SULFAMETHOXAZOLE >2/38 R TETRACYCLINE >8 R -------- ---- RUN DATE: 08/30/20 [facility] *LIVE* PAGE 2 RUN TIME: 913 Specimen Inquiry SPEC: [id number] PATIENT: YONIS HAIRSTON [id number] (Continued) Procedure Result CONTINUED ON NEXT PAGE RUN DATE: 08/30/20 [facility] *LIVE* PAGE 3 RUN TIME: 913 Specimen Inquiry --------- --- SPEC: [id number] PATIENT: YONIS HAIRSTON [id number] (Continued) SPEC #: [id number] OFE: 08/27/20 STATUS: RES REQ #: [id number] RECD: 08/28/20-[address]: JUDIE HUBBARD III, DO SOURCE: LEG ENTR: 08/28/[address]: YAN RIOS MD [facility]: WOUND BEVERLY SPENCER MD ORDERED: SHAHEEN/CHAI/KARI COMMENTS: R LEG SUBCUTANEOUS Procedure Result ------ ------ GRAM STAIN Final Final GRAM POS COCCI CLUSTERS:MODERATE RBC:MODERATE SQUAMOUS EPI CELL:RARE PMN (WBCs):MANY Unless otherwise specified, Testing Performed by: [address] [address] For Inquires, the Physician may contact the Microbiology department at [phone] ANAEROBIC-AEROBIC CULTURE Preliminary Preliminary MANY [STAPHYLOCOCCUS AUREUS (MRSA)] on 08/29/20 at 1351 SEE CULTURE AN663 FOR SUSCEPTIBILITY RESULTS STAPHYLOCOCCUS AUREUS (MRSA) Unless otherwise specified, Testing Performed by: [address] [address] For Inquires, the Physician may contact the Microbiology department at [phone] 36 min pt exam, chart review, > 50% of time spent with exam, chart review, pt care coordination Cont Daptomycin higher dose 10mg/kg daily (08/30) and Rifampin ( 08/30). Avoid IV vancomycin due to BERHANE . monitor CK closely Follow up labs and cultures. 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 further surgical plans per orthopedics if pt is a candidate, . Difficult surgical candidate due to femur implant.... Despite aggressive medical management patient is at high risk of limb loss 6-25 pain improving emperic iv antibiotics Postoperatively, wound care, PT, OT and probably jail facility. ID CONSULT BLOOD CULTURES Operative procedure: Irrigation and debridement right knee with superficial and deep cultures and retention of hardware 18 Procedure Result GRAM STAIN Final Final GRAM POS COCCI CLUSTERS:MODERATE RBC:MANY SQUAMOUS EPI CELL:NOT APPLICABLE PMN (WBCs):MANY Unless otherwise specified, Testing Performed by: [address] [address] For Inquires, the Physician may contact the Microbiology department at [phone] ANAEROBIC-AEROBIC CULTURE Preliminary Preliminary MANY [STAPHYLOCOCCUS AUREUS (MRSA)] on 08/29/20 at 1351 STAPHYLOCOCCUS AUREUS (MRSA) ANTIMICROBIAL SUSCEPTIBILITY Preliminary Comment POS JC TYPE 38 STAPHYLOCOCCUS AUREUS (MRSA) ANTIBIOTIC RESULT INTERPRETATION AZITHROMYCIN >4 R CLINDAMYCIN <=0.25 R* CEFOXITIN SCREEN >4 POS CIPROFLOXACIN >2 R CEFTAROLINE 1 S DAPTOMYCIN 1 S ERYTHROMYCIN >4 R GENTAMICIN >8 R INDUCIBLE CLINDAMYCIN >4/0.5 POS LINEZOLID 2 S LEVOFLOXACIN >4 R OXACILLIN >2 R PENICILLIN >2 R* RIFAMPIN <=1 S TRIMETHOPRIM/SULFAMETHOXAZOLE >2/38 R TETRACYCLINE >8 R RUN DATE: 08/30/20 [facility] *LIVE* PAGE 2 RUN TIME: 913 Specimen Inquiry SPEC: [id number] PATIENT: YONIS HAIRSTON [id number] (Continued) Procedure Result CONTINUED ON NEXT PAGE RUN DATE: 08/30/20 [facility] *LIVE* PAGE 3 RUN TIME: 913 Specimen Inquiry SPEC: [id number] PATIENT: YONIS HAIRSTON [id number] (Continued) SPEC #: [id number] OFE: 08/27/20 STATUS: RES REQ #: [id number] RECD: 08/28/[address]: JUDIE HUBBARD III, DO SOURCE: LEG ENTR: 08/28/[address]: YNA RIOS MD SPDES[facility]: BEVERLY HAYES MD ORDERED: SHAHEEN/CHAI/KARI COMMENTS: R LEG SUBCUTANEOUS Procedure Result GRAM STAIN Final Final GRAM POS COCCI CLUSTERS:MODERATE RBC:MODERATE SQUAMOUS EPI CELL:RARE PMN (WBCs):MANY Unless otherwise specified, Testing Performed by: [address] [address] For Inquires, the Physician may contact the Microbiology department at [phone] ANAEROBIC-AEROBIC CULTURE Preliminary Preliminary MANY [STAPHYLOCOCCUS AUREUS (MRSA)] on 08/29/20 at 1351 SEE CULTURE AN663 FOR SUSCEPTIBILITY RESULTS STAPHYLOCOCCUS AUREUS (MRSA) Unless otherwise specified, Testing Performed by: [address] [address] For Inquires, the Physician may contact the Microbiology department at [phone] 26 min pt exam, chart review, > 50% of time spent with exam, chart review, pt care coordination Cont Daptomycin higher dose 10mg/kg daily (08/30) and Rifampin ( 08/30). Avoid IV vancomycin due to BERHANE . monitor CK closely Follow up labs and cultures. 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 further surgical plans per orthopedics if pt is a candidate, . Difficult surgical candidate due to femur implant.... Despite aggressive medical management patient is at high risk of limb loss 6-25 pain improving emperic iv antibiotics Postoperatively, wound care, PT, OT and probably jail facility. ID CONSULT BLOOD CULTURES Operative procedure: Irrigation and debridement right knee with superficial and deep cultures and retention of hardware 6-18 Procedure Result GRAM STAIN Final Final GRAM POS COCCI CLUSTERS:MODERATE RBC:MANY SQUAMOUS EPI CELL:NOT APPLICABLE PMN (WBCs):MANY Unless otherwise specified, Testing Performed by: [address] [address] For Inquires, the Physician may contact the Microbiology department at [phone] ANAEROBIC-AEROBIC CULTURE Preliminary Preliminary MANY [STAPHYLOCOCCUS AUREUS (MRSA)] on 08/29/20 at 1351 STAPHYLOCOCCUS AUREUS (MRSA) ANTIMICROBIAL SUSCEPTIBILITY Preliminary Comment POS JC TYPE 38 STAPHYLOCOCCUS AUREUS (MRSA) ANTIBIOTIC RESULT INTERPRETATION AZITHROMYCIN >4 R CLINDAMYCIN <=0.25 R* CEFOXITIN SCREEN >4 POS CIPROFLOXACIN >2 R CEFTAROLINE 1 S DAPTOMYCIN 1 S ERYTHROMYCIN >4 R GENTAMICIN >8 R INDUCIBLE CLINDAMYCIN >4/0.5 POS LINEZOLID 2 S LEVOFLOXACIN >4 R OXACILLIN >2 R PENICILLIN >2 R* RIFAMPIN <=1 S TRIMETHOPRIM/SULFAMETHOXAZOLE >2/38 R TETRACYCLINE >8 R RUN DATE: 08/30/20 [facility] *LIVE* PAGE 2 RUN TIME: 913 Specimen Inquiry SPEC: [id number] PATIENT: YONIS HAIRSTON [id number] (Continued) ------- ----- Procedure Result CONTINUED ON NEXT PAGE RUN DATE: 08/30/20 [facility] *LIVE* PAGE 3 RUN TIME: 913 Specimen Inquiry SPEC: [id number] PATIENT: YONIS HAIRSTON [id number] (Continued) SPEC #: [id number] OFE: 08/27/20 STATUS: RES REQ #: [id number] RECD: 08/28/[address] [facility] DR: JUDIE HUBBARD III, DO SOURCE: LEG ENTR: 08/28/[address]: YAN RIOS MD [facility]: WOUND PULS,BEVERLY De Jesus MD ORDERED: ANAER/AEROB/GS COMMENTS: R LEG SUBCUTANEOUS Procedure Result GRAM STAIN Final Final GRAM POS COCCI CLUSTERS:MODERATE RBC:MODERATE SQUAMOUS EPI CELL:RARE PMN (WBCs):MANY Unless otherwise specified, Testing Performed by: [address] [address] For Inquires, the Physician may contact the Microbiology department at [phone] ANAEROBIC-AEROBIC CULTURE Preliminary Preliminary MANY [STAPHYLOCOCCUS AUREUS (MRSA)] on 08/29/20 at 1351 SEE CULTURE AN663 FOR SUSCEPTIBILITY RESULTS STAPHYLOCOCCUS AUREUS (MRSA) Unless otherwise specified, Testing Performed by: [address] [address] For Inquires, the Physician may contact the Microbiology department at [phone] 26 min pt exam, chart review, > 50% of time spent with exam, chart review, pt care coordination Cont Daptomycin higher dose 10mg/kg daily (08/30) and Rifampin ( 08/30). Avoid IV vancomycin due to BERHANE . monitor CK closely Follow up labs and cultures. 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 further surgical plans per orthopedics if pt is a candidate, . Difficult surgical candidate due to femur implant.... Despite aggressive medical management patient is at high risk of limb loss family are decided on this could proceed with surgical treatment accordingly and would have to arrange the materials likely with surgery tomorrow at the [facility]. History of Present Illness History of Present Illness ADMIT DATE: 08/27/2020 CHIEF COMPLAINT: Right knee swelling, pain, discharge. HISTORY OF PRESENT ILLNESS: The patient is a pleasant 89-year-old female who underwent a right knee replacement with Dr. Rossi on 07/21 last month. She was doing relatively well, but then she fell and refractured the knee. I spoke with Dr. Rossi about the procedure. He had to go back in and put in a complex rotating hinge as she did not have much bone left above the previous knee replacement. Postoperatively, she was sent to [place] for rehabilitation. She was doing relatively well once again, but then started having some drainage. Dr. Rossi requested that she be put on a wound VAC. Apparently, the wound VAC situation was not helping much. Dr. Rossi states that it probably was not put on properly. Nevertheless, the patient came to our ER today with more drainage and some swelling and pain. Dr. Rossi called Dr. Cortes and had him do an arthrocentesis. The patient is now being examined on the medical floor, where she is getting ready to go to surgery here in a few minutes. PAST MEDICAL HISTORY: The above-mentioned complex knee replacement twice; arthritis; GERD; hyperlipidemia; hypertension; thyroid surgery; overactive bladder; partial hysterectomy, right; multiple hernia repairs. ALLERGIES: PREDNISONE AND CARAFATE. FAMILY HISTORY: Diabetes. SOCIAL HISTORY: She does not drink, smoke or take drugs. She is retired; has 3 children, one of her daughters is here, she seems to be a very good support for her. MEDICATIONS: Reviewed. Please refer to the MRAD. REVIEW OF SYSTEMS: GENERAL: No history of weight change, weakness or fevers. SKIN: No bruising, hair changes or rashes. EYES: No blurred, double or loss of vision. NOSE AND THROAT: No history of nosebleeds, hoarseness or sore throat. HEART: No history of palpitations, chest pain or shortness of breath on exertion. LUNGS: Denies cough, hemoptysis, wheezing or shortness of breath. GASTROINTESTINAL: Denies changes in appetite, nausea, vomiting, diarrhea or constipation. GENITOURINARY: No history of frequency, urgency, hesitancy or nocturia. NEUROLOGIC: Denies history of numbness, tingling, tremor or weakness. PSYCHIATRIC: No history of panic, anxiety or depression. ENDOCRINE: No history of heat or cold intolerance, polyuria or polydipsia. EXTREMITIES: She complains of right knee pain. Vitals Vitals Vital Signs Date Time Temp Pulse Resp B/P (MAP) Pulse Ox O2 Delivery O2 Flow Rate FiO2 09/04/20 07:25 Room Air 09/04/20 07:00 97.4 79 16 129/57 (81) 97 97.4 Physical Exam Physical Exam GENERAL: Alert, oriented x 3, pleasant female, lying in bed comfortably, in no acute distress. HEENT: Normocephalic, atraumatic. Anicteric. NECK: Supple. No JVD. LUNGS: Clear bilaterally. No wheezing. HEART: S1, S2. No gallops or murmurs. ABDOMEN: Soft, obese, nontender, nondistended. EXTREMITIES: Right lower extremity swelling present. Wound VAC in place. Minimal warmth. No surrounding erythema noted. Distal aspect of wound has swelling which appears to be a developing hematoma NEUROLOGIC: Alert, oriented x 3, grossly nonfocal. PSYCHIATRIC: Calm and cooperative. DERMATOLOGIC: Warm, dry, no generalized rash. PIV looks clean. General: Alert, Oriented X3, Cooperative, No acute distress Heart: Regular rate Lungs: Clear Abdomen: Normal bowel sounds, Soft Extremities: No cyanosis Labs LABS Operative Note Operative Note Date of surgery: 09/04/2020 Preoperative diagnosis: Right knee infection with distal femoral replacement rotating-hinge knee implant present Postoperative diagnosis: Same with well fixed implants Operative procedure: Explantation of femoral component and hinge portion, fixation of a distal tibial shaft fracture and placement of an antibiotic rigid spacer Surgeon: Flo Jewel[employer] Drilling Machine Operator:Osmany batista assist Anesthesia: General Estimated blood loss: 200 cc Complications: Tibial shaft fracture was noted with attempted removal of tibial component and fixated Assessment and Plan Assessmemt and Plan Problems Medical Problems: (1) Cellulitis Status: Acute Comment Review of Relevant I have reviewed the following items fiorella (where applicable) has been applied. Labs Microbiology 08/27/20 Gram Stain - Final, Complete 08/27/20 Aerobic and Anaerobic Culture - Final, Complete 08/27/20 Antimicrobic Susceptibility - Final, Complete 08/27/20 AFB Specimen Processing Tissue - Final, Resulted 08/27/20 Acid Fast Bacilli Culture, Resulted Pending 08/27/20 Gram Stain - Final, Resulted 08/27/20 Fungal Culture, Resulted Pending 08/27/20 Fungal Culture Result 1, Resulted Pending 08/27/20 Blood Culture - Final, Complete NO GROWTH AFTER 5 DAYS Medications Current Medications Vancomycin HCl 1 gm/Sodium Chloride 250 ml @ 166.667 mls/hr 1X ONCE IV ; Start 08/27/20 at 14:00; Stop 08/27/20 at 14:04; Status DC Vancomycin HCl 1.75 gm/Sodium Chloride 500 ml @ 250 mls/hr 1X ONCE IV Last administered on 08/27/20at 15:13; Start 08/27/20 at 14:30; Stop 08/27/20 at 16:29; Status DC Sodium Chloride 1,000 ml @ 1,000 mls/hr 1X ONCE IV Last administered on 08/27/20at 15:12; Start 08/27/20 at 14:15; Stop 08/27/20 at 15:14; Status DC Fentanyl Citrate (Fentanyl 2ml Vial) 25 mcg PRN Q5MIN PRN IVP MILD PAIN 1-3; Start 08/27/20 at 16:30; Stop 08/28/20 at 16:29; Status DC Fentanyl Citrate (Fentanyl 2ml Vial) 50 mcg PRN Q5MIN PRN IVP MODERATE PAIN 4-6 Last administered on 08/27/20at 21:50; Start 08/27/20 at 16:30; Stop 08/28/20 at 16:29; Status DC Morphine Sulfate (Morphine Sulfate) 1 mg PRN Q10MIN PRN IVP SEVERE PAIN 7-10 Last administered on 08/27/20at 22:13; Start 08/27/20 at 16:30; Stop 08/28/20 at 16:29; Status DC Ringer's Solution 1,000 ml @ 30 mls/hr Q24H IV ; Start 08/27/20 at 16:30; Stop 08/28/20 at 04:29; Status DC Hydromorphone HCl (Dilaudid) 0.5 mg PRN Q10MIN PRN IVP SEVERE PAIN 7-10, 2nd CHOICE Last administered on 08/27/20at 22:24; Start 08/27/20 at 16:30; Stop 08/28/20 at 16:29; Status DC Prochlorperazine Edisylate (Compazine) 5 mg PACU PRN PRN IVP NAUSEA, MRX1; Start 08/27/20 at 16:30; Stop 08/28/20 at 16:29; Status DC Propofol (Diprivan) 200 mg STK-MED ONCE IV ; Start 08/27/20 at 19:50; Stop 08/27/20 at 19:51; Status DC Lidocaine HCl (Lidocaine Pf 2% Vial) 5 ml STK-MED ONCE .ROUTE ; Start 08/27/20 at 19:50; Stop 08/27/20 at 19:51; Status DC Fentanyl Citrate (Fentanyl 2ml Vial) 100 mcg STK-MED ONCE .ROUTE ; Start 08/27/20 at 19:58; Stop 08/27/20 at 19:58; Status DC Ondansetron HCl (Zofran) 4 mg STK-MED ONCE .ROUTE ; Start 08/27/20 at 20:36; Stop 08/27/20 at 20:37; Status DC Dexamethasone Sodium Phosphate (Decadron) 4 mg STK-MED ONCE .ROUTE ; Start 08/27/20 at 20:36; Stop 08/27/20 at 20:37; Status DC Phenylephrine HCl (PHENYLEPHRINE in 0.9% NACL PF) 1 mg STK-MED ONCE IV ; Start 08/27/20 at 20:37; Stop 08/27/20 at 20:37; Status DC Sevoflurane (Ultane) 60 ml STK-MED ONCE IH ; Start 08/27/20 at 21:22; Stop 08/27/20 at 21:22; Status DC Fentanyl Citrate (Fentanyl 2ml Vial) 100 mcg STK-MED ONCE .ROUTE ; Start at 21:45; Stop 08/27/20 at 21:45; Status DC Morphine Sulfate (Morphine Sulfate) 2 mg STK-MED ONCE .ROUTE ; Start 08/27/20 at 22:01; Stop 08/27/20 at 22:01; Status DC Hydromorphone HCl (Dilaudid) 2 mg STK-MED ONCE .ROUTE ; Start 08/27/20 at 22:21; Stop 08/27/20 at 22:21; Status DC Sodium Chloride 1,000 ml @ 75 mls/hr [id number] IV Last administered on 08/30/20at 02:38; Start 08/28/20 at 09:45; Stop 08/30/20 at 15:48; Status DC Daptomycin 410 mg/ Sodium Chloride 50 ml @ 100 mls/hr Q24H IV Last admi nistered on 08/29/20at 13:15; Start 08/28/20 at 12:30; Stop 08/30/20 at 10:11; Status DC Piperacillin Sod/ Tazobactam Sod 3.375 gm/Sodium Chloride 50 ml @ 100 mls/hr Q6HRS IV Last administered on 08/30/20at 05:57; Start 08/28/20 at 12:00; Stop 08/30/20 at 10:11; Status DC Acetaminophen (Tylenol) 1,000 mg PRN BID PRN PO MILD PAIN / TEMP > 100.3'F Last administered on 09/03/20at 03:11; Start 08/28/20 at 14:45 Docusate Sodium (Colace) 100 mg BID PO Last administered on 09/03/20 08:19; Start 08/28/20 at 21:00 Levothyroxine Sodium (Synthroid) 88 mcg DAILY07 PO Last administered on 09/04/20at 07:21; Start 08/29/20 at 07:00 Simvastatin (Zocor) 20 mg HS PO Last administered on 09/03/20at 21:27; Start 08/28/20 at 21:00 Tramadol HCl (Ultram) 50 mg PRN Q4HRS PRN PO MODERATE-SEVERE PAIN Last administered on 08/28/20at 15:01; Start 08/28/20 at 14:45 Vitamin D (Vitamin D3) 2,000 unit DAILY PO Last administered on 09/03/20at 08:19; Start 08/29/20 at 09:00 Non-Formulary Medication (Melatonin ) 1 tab QHS PO ; Start 08/28/20 at 21:00; Status UNV Multivitamins (Thera M Plus) 1 tab DAILY PO Last administered on 09/03/20at 08:19; Start 08/29/20 at 09:00 Pantoprazole Sodium (Protonix) 40 mg DAILYAC PO Last administered on 09/04/20at 07:22; Start 08/29/20 at 07:30 Oxybutynin Chloride (Ditropan) 5 mg [id number] PO Last administered on 09/03/20at 21:28; Start 08/28/20 at 21:00 Lactobacillus Rhamnosus (Culturelle) 1 cap BID PO Last administered on 09/03/20at 21:28; Start 08/29/20 at 21:00 Rifampin (Rifadin) 300 mg BID PO Last administered on 09/03/20at 21:27; Start 08/30/20 at 11:00 Daptomycin 550 mg/ Sodium Chloride 50 ml @ 100 mls/hr Q24H IV Last administer ed on 09/03/20at 12:07; Start 08/30/20 at 12:30 Active Scripts Active Reported Acetaminophen 500 Mg Tablet 2 Tab PO PRN BID PRN 30 Days Tramadol Hcl 50 Mg Tablet 50 Mg PO Q4HRS PRN Melatonin 5 Mg Tab.rapdis 1 Tab PO QHS 30 Days Colace (Docusate Sodium) 100 Mg Capsule 1 Cap PO BID 30 Days Vesicare (Solifenacin Succinate) 10 Mg Tablet 1 Tab PO DAILY 30 Days Levothyroxine Sodium 88 Mcg Tablet 1 Tab PO DAILY Omeprazole 20 Mg Capsule.dr 1 Cap PO DAILY Vitamin D3 (Cholecalciferol (Vitamin D3)) 2,000 Unit Tablet 2,000 Unit PO DAILY Once Daily (Multivitamin) 1 Each Tablet 1 Each PO DAILY Simvastatin 20 Mg Tablet 20 Mg PO HS Vitals/I & O Vital Sign - Last 24 Hours 09/03/20 09/03/20 09/03/20 09/03/20 11:00 15:00 19:15 20:00 Temp 98.0 98.1 98.5 98.0 98.1 98.5 Pulse 75 87 87 Resp 18 18 18 B/P (MAP) 131/47 (75) 102/46 (64) 110/51 (70) Pulse Ox 96 98 98 O2 Delivery Room Air Room Air Room Air Room Air 09/03/20 09/04/20 09/04/20 09/04/20 23:12 03:08 07:00 07:25 Temp 98.0 98.1 97.4 98.0 98.1 97.4 Pulse 87 86 79 Resp 18 18 16 B/P (MAP) 138/50 (79) 160/64 (96) 129/57 (81) Pulse Ox 97 97 97 O2 Delivery Room Air Room Air Room Air Room Air Intake and Output 09/03/20 09/03/20 09/04/20 15:00 23:00 07:00 Intake Total 660 ml 240 ml Balance 660 ml 240 ml Nutrition Consultation Dietary Evaluation: Recommendations by RD: Dietary education by RD, Increase Calorie Intake, Protein supplementation Comments: continue Cardiac diet will send kris bid to promote wound healing continue with mvi Expected Outcomes/Goals: to meet >75% est nutr needs improved wound status Malnutrition Findings: Body Fat Depletion (Non Severe: Mild Depletion Weight Status: Overweight Justicifation of Admission Dx: Justifications for Admission: Justification of Admission Dx: N/A SUNSHINE GALEAS MD Sep 04, 2020 09:48
--- NOTE | 2020-09-04 10:02 | PDOC ---
PROGRESS NOTES Date of Service DATE: 09/04/20 TIME: 09:55 Subjective Subjective Problems overnight: Delayed entry from yesterday's visit around noon. Patient talked with her family about our previous detailed discussion and wants to proceed with explantation and a stiff antibiotic spacer. She notes significant bloody drainage when the wound VAC was first put on less so now no fever chills or other complaints pain is well controlled Objective Vital Signs Vital Signs Date Time Temp Pulse Resp B/P (MAP) Pulse Ox O2 Delivery O2 Flow Rate FiO2 09/04/20 07:25 Room Air 09/04/20 07:00 97.4 79 16 129/57 (81) 97 97.4 08/28/20 03:00 2.0 Physical Exam On exam she still has some bloody drainage in the wound VAC canister wound VAC is intact knee is stable distal neurovascular status intact Assessment Assessment Right knee MRSA infection Plan Plan of Care I went over with her the treatment options again including the poor expected results of retention of her current implant. These were discussed further with her daughter by phone as well. She does not want an amputation which would likely be a definitive treatment with 1 surgery. We also talked about the possibility of explantation and placement of a antibiotic spacer that would make her leg stiff yet hopefully give her support and give the best chance without amputation of trying to clear the infection. The measure of placing a spacer could eventually fail to clear the infection and is generally put in with the later plans of removal and reimplantation if her infection is resolved. I did go over with her that there are some cases where people like to keep the spacer in as long as it does not fail but once the antibiotics dilute out it is a possibility that infection could recur despite this method. She and her family are decided on this and I told her we could proceed with surgical treatment accordingly and would have to arrange the materials to be brought in and likely with surgery tomorrow at the earliest. She agrees to proceed and I discussed plans with her daughter via phone as well Justicifation of Admission Dx: Justifications for Admission: Justification of Admission Dx: N/A GURU TORRES MD Sep 04, 2020 10:02
--- NOTE | 2020-09-04 10:09 | NUR ---
LOLA following. Discussed with RN, pt accepted at [facility] pending insurance auth. Plans for a surgery to place an abx spacer - unsure of when. LOLA will continue to follow. Addendum: 09/04/20 at 1241 by LAVON DAVILA Updates faxed to [facility], still no auth as of yet. Addendum: 09/04/20 at 1540 by LAVON DAVILA LOLA received a phone call from [facility] - they have approved transfer to [facility] - auth start date 09/07/20, auth #[id number]. Pt had surgery today, should be ready to discharge to [facility] on Monday09/07/20. [facility] and pt's daughter, Tiffanie notified.
[2020-09-04] MEDS: DAPTOmycin (GENERIC) IVPB 550 MG in IV NORMAL SALINE 50ML 50 ML IV SCH (11:11)
[2020-09-04] MEDS ORDERED: ROCURONIUM 50 MG/5 ML VIAL. ONE (14:02)
[2020-09-04] MEDS ORDERED: PROPOFOL 10 MG/ML (20ML) VIAL. IV ONE (14:05)
[2020-09-04] MEDS ORDERED: ONDANSETRON PF 4 MG/2 ML VIAL. ONE (14:05)
[2020-09-04] MEDS ORDERED: DEXAMETHASONE SOD PHOS 4 MG/ML VIAL ONE (14:05)
[2020-09-04] MEDS ORDERED: SEVOFLURANE > 120 MINUTES. IH ONE (14:05)
[2020-09-04] MEDS ORDERED: LIDOCAINE 2% PF 5 ML VIAL. ONE ×2 (14:05→18:51)
[2020-09-04] MEDS ORDERED: TRANEXAMIC ACID in NS IVPB 50 ML ONE (14:05)
[2020-09-04] MEDS ORDERED: VANCOMYCIN 1 GM VIAL. ONE ×3 (14:05→15:20)
[2020-09-04] MEDS ORDERED: fentaNYL PF VIAL 100 MCG/2 ML VIAL ONE (14:41)
[2020-09-04] MEDS ORDERED: PHENYLEPHRINE in 0.9% NACL PF 1 MG/10 ML SYRINGE. IV ONE (14:53)
[2020-09-04] MEDS ORDERED: TOBRAMYCIN POWDER 1.2 GM VIAL. CEMENT ONE (15:13)
[2020-09-04] MEDS ORDERED: VANCOMYCIN 1 GM VIAL. CEMENT ONE (15:13)
[2020-09-04] MEDS ORDERED: TOBRAMYCIN POWDER 1.2 GM VIAL. ONE ×2 (15:18→15:20)
[2020-09-04] MEDS ORDERED: GLYCOPYRROLATE 1 MG/5 ML VIAL. ONE (18:18)
[2020-09-04] MEDS ORDERED: NEOSTIGMINE METHYLSULFATE 5 MG/5 ML SYRINGE. ONE (18:18)
[2020-09-04] MEDS ORDERED: HYDROmorphone 2 MG/ML VIAL ONE (19:26)
[2020-09-04] MEDS: HYDROmorphone 2 MG/ML VIAL IVP PRN ×4 (19:30→20:10)
[2020-09-04] MEDS ORDERED: ATROPINE 0.5 MG/5 ML DISP.SYRINGE. IV PRN (20:00)
[2020-09-04] MEDS ORDERED: MORPHINE SULFATE 2 MG/ML INJ. IV PRN (20:00)
[2020-09-04] MEDS ORDERED: fentaNYL PF VIAL 100 MCG/2 ML VIAL IV PRN ×2 (20:00)
[2020-09-04] MEDS ORDERED: NALOXONE 0.4 MG/ML VIAL. IV PRN (20:00)
--- NOTE | 2020-09-04 21:00 | NUR ---
pt. arrived on unit from PACU at 2047. Pt. is A&Ox4, on 2L NC and complains of some pain. Call light is within reach with bed in lowest position. Will continue to monitor.
[2020-09-04] MEDS: SIMVASTATIN 20 MG TABLET PO SCH (21:17)
[2020-09-04] MEDS: fentaNYL PF VIAL 100 MCG/2 ML VIAL IVP PRN (21:17)
--- NOTE | 2020-09-04 22:07 | PDOC4 ---
Operative Note Operative Note Date of surgery: 09/04/2020 Preoperative diagnosis: Right knee infection with distal femoral replacement rotating-hinge knee implant present Postoperative diagnosis: Same with well fixed implants Operative procedure: Explantation of femoral component and hinge portion, fixation of a distal tibial shaft fracture and placement of an antibiotic rigid spacer Surgeon: Flo Supervisor Sewer System:Osmany wilson Anesthesia: General Estimated blood loss: 200 cc Complications: Tibial shaft fracture was noted with attempted removal of tibial component and fixated Operative indications: Please see previous hospital notes for detailed operative indications but in brief summary I had discussed with the patient and her daughters the situation that she has infection with MRSA that has very extensive resistance profile which would make it difficult to undergo oral suppression after an IV antibiotic treatment. Likewise it is unlikely that infection would b e cleared in the presence of her implant. We had talked about the possibility of amputation above the knee as a definitive treatment and she absolutely did not want that. She wondered to preserve her leg even if it was stiff and we did talk about the possibility of removal of the implants and placement of an antibiotic spacer that would be rigid and in most circumstances would be later removed if infection was cleared for reimplantation of an implant. Sometimes however patients elect to defer surgery if they are getting along okay with a functioning spacer. We had discussed details of that specifically that after the antibiotics dilute out fully if infection is not cleared it may recur and this treatment may not be definitive. Nevertheless she does elect this option even if it requires additional surgeries and agreed to proceed given informed consent Operative text: Patient was identified procedure verified patient placed in the supine position on the operating table. After adequate amounts of general anesth esia were administered the right lower extremity was prepped and draped in standard sterile fashion with a thigh tourniquet. After timeout was performed patient procedure identified and verified midline incision was opened along her previous incisional scar. Medial parapatellar approach was carried out and the rotating-hinge component was dissociated by removing the torqued hinge securing the rotating post. The femur was found to be well fixed but was successfully removed by repeatedly distally impacting the prosthesis and it was removed atraumatically. The cement bone interface at the proximal tibia was with an oscillating saw and the screw securing the tibial component to the tibial stem was removed and I attempted to loosen the tibia by impacting it in line using several different methods with a bone tamp, slap hammer with an intellectual property legal assistant holding countertraction. Unfortunately I was unable to loosen the tibia despite removing the entire proximal interface that was accessible without destroying the proximal tibia and a tibial fracture was noted. Concerned that removal of the tibial component would result in destruction of the proximal tibia I scrubbed out and talk to the patient's daughter in the surgical waiting room and informed her of the situation that without extensive destruction of the tibia that removal of the tibial component would not be possible. Knowing that the patient expressed a very strong reaction against amputation I did discuss that alternative versus the incomplete removal. The patient's daughter stated that Leslie absolutely does not want amputation and even if she has residual infection she wants to have her leg and will attempt to continue with that unless infection spreads and would make her sick or life-threatening. Therefore I proceeded with the plan to place a spacer rigidly with antibiotic filled cement and after thorough debridement and irrigation with Bactisure followed by normal saline solution, 2 300 mm carbon fiber external fixator rods were placed, one in the distal femur after reaming adequately to accommodate the jeanine and a second placed down into the tibial component and then adjacent to the distal femur shaft, both of which were secured with bar-to-bar clamps for stability. An inferior medial incision was made with subperiosteal dissection carried out around the tibial fracture site which was anatomically reduced and fixated with a Mary distal medial tibial fixation plate. The entire area around the fixator rods was packed with a total of 4 batches of antibiotic laden methylmethacrylate cement with 2 g of vancomycin and 2 g of tobramycin each with an additional monomer to assist an adequate cement consistency. This resulted in a rigidly fixed knee joint and stable fixation of her tibia fracture. Thorough irrigation carried out again with normal saline solution retinacular closure accomplished with #1 PDS strata fix suture subcutaneous closure of the distal tibia with buried Vicryl suture and skin closure of the distal tibial incision with gautam. The proximal incision however was closed with a combination of nylon suture placed in a tension relieving near far far near configuration with alternating nylon vertical mattress sutures to ensure good skin eversion. An Adaptic boundary layer was placed followed by a wound VAC on the proximal midline incision. Sterile soft dressings were placed distally. Tourniquet was not inflated during the procedure and patient was returned to recovery room in stable condition having tolerated the procedure well. GURU TORRES MD Sep 04, 2020 22:07
[2020-09-05] VITALS (8 sets, daily range): BP systolic 104–127; BP diastolic 38–54
[2020-09-05] MEDS: IV RINGERS,LACTATED 1000ML 1,000 ML IV SCH ×2 (00:41→09:05)
[2020-09-05] MEDS: ACETAMINOPHEN 500 MG TABLET PO PRN (00:48)
[2020-09-05] MEDS: fentaNYL PF VIAL 100 MCG/2 ML VIAL IVP PRN ×6 (01:31→18:29)
[2020-09-05] MEDS: LEVOTHYROXINE 88 MCG TABLET PO SCH (05:46)
[2020-09-05] MEDS: PANTOPRAZOLE 40 MG TABLET.DR. PO SCH (05:46)
[2020-09-05] MEDS: ACETAMINOPHEN 325 MG TABLET. PO PRN (05:46)
--- NOTE | 2020-09-05 08:26 | PDOC ---
Infectious Disease Note Subjective: Subjective Patient underwent complicated right lower extremity surgery yesterday Discussed with Dr. Rossi this a.m. Patient denies any complaints currently Postop pain is under control Denies fever, nausea, vomiting, shortness of breath, diarrhea, abdominal pain, rash Otherwise as above Vital Signs: Vital Signs Vital Signs Date Time Temp Pulse Resp B/P (MAP) Pulse Ox O2 Delivery O2 Flow Rate FiO2 09/05/20 08:07 98 Room Air 2.0 09/05/20 07:00 98.4 87 18 127/38 (67) 98.4 Physical Exam: PHYSICAL EXAM GENERAL: Alert, oriented x 3, pleasant female, lying in bed comfortably, in no acute distress. HEENT: Normocephalic, atraumatic. Anicteric. NECK: Supple. No JVD. LUNGS: Clear bilaterally. No wheezing. HEART: S1, S2. No gallops or murmurs. ABDOMEN: Soft, obese, nontender, nondistended. EXTREMITIES: Right lower extremity swelling present. Dressing in place not taken down NEUROLOGIC: Alert, oriented x 3, grossly nonfocal. PSYCHIATRIC: Calm and cooperative. DERMATOLOGIC: Warm, dry, no generalized rash. PIV looks clean. Medications: Inpatient Meds: Medications reviewed. Labs: Micro RUN DATE: 08/30/20 [facility] *LIVE* PAGE 1 RUN TIME: 913 Specimen Inquiry PATIENT: LEO HAIRSTONAPRIL Escamilla ACCT: [id number] LOC: [address] [place] [address] U: [id number] AGE/SX: 89/F ROOM: 404 RE08/27/[address]: JUDIE HUBBARD III, DO : 1930 BED: 1 DIS: STATUS: ADM IN TLOC: SPEC #: [id number] OFE: 08/27/20 STATUS: RES REQ #: [id number] RECD: 08/28/[address]: JUDIE HUBBARD III, DO SOURCE: KNEE ENTR: 08/28/[address]: YAN RIOS MD [facility]: BEVERLY PERRY MD ORDERED: SHAHEEN/CHAI/KARI COMMENTS: R KNEE JOINT FLUID Procedure Result GRAM STAIN Final Final GRAM POS COCCI CLUSTERS:MODERATE RBC:MANY SQUAMOUS EPI CELL:NOT APPLICABLE PMN (WBCs):MANY Unless otherwise specified, Testing Performed by: [address] [address] For Inquires, the Physician may contact the Microbiology department at [phone] ANAEROBIC-AEROBIC CULTURE Preliminary Preliminary MANY [STAPHYLOCOCCUS AUREUS (MRSA)] on 08/29/20 at 1351 STAPHYLOCOCCUS AUREUS (MRSA) ANTIMICROBIAL SUSCEPTIBILITY Preliminary Comment POS JC TYPE 38 STAPHYLOCOCCUS AUREUS (MRSA) ANTIBIOTIC RESULT INTERPRETATION AZITHROMYCIN >4 R CLINDAMYCIN <=0.25 R* CEFOXITIN SCREEN >4 POS CIPROFLOXACIN >2 R CEFTAROLINE 1 S DAPTOMYCIN 1 S ERYTHROMYCIN >4 R GENTAMICIN >8 R INDUCIBLE CLINDAMYCIN >4/0.5 POS LINEZOLID 2 S LEVOFLOXACIN >4 R OXACILLIN >2 R PENICILLIN >2 R* RIFAMPIN <=1 S TRIMETHOPRIM/SULFAMETHOXAZOLE >2/38 R TETRACYCLINE >8 R -- RUN DATE: 08/30/20 [facility] *LIVE* PAGE 2 RUN TIME: 913 Specimen Inquiry SPEC: [id number] PATIENT: YONIS HAIRSTON Francine [id number] (Continued) Procedure Result CONTINUED ON NEXT PAGE RUN DATE: 08/30/20 [facility] *LIVE* PAGE 3 RUN TIME: 913 Specimen Inquiry - SPEC: [id number] PATIENT: YONIS HAIRSTON [id number] (Continued) Procedure Result ANTIMICROBIAL SUSCEPTIBILITY Preliminary (continued) VANCOMYCIN 1 S Unless otherwise specified, Testing Performed by: [address] [address] For Inquires, the Physician may contact the Microbiology department at [phone] Objective: Assessment: MRSA Complicated RT Knee arthroplasty infection ( R to bactrim and Doxycycline, S to Rifampin) 1.. Right knee postop site drainage,hematoma with infection Status post synovial aspirate on 08/27/2020, WBC 2100, RBC 102,000, 98%PMNs. Cult MRSA 2. MRSA Right knee periprosthetic joint infection. S/P Irrigation and debridement right knee with superficial and deep cultures and retention of hardware Jt Fluid cultures done per DR Rossi + MRSA Subcut tissue cult positive for MRSA 3. Fever resolved 4. 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 5. Supracondylar fracture just above the knee joint 6. Status post removal of the components and placement of distal femoral replacement with a rotating hinge construct for periprosthetic distal femur fracture above well-fixated right total knee arthroplasty, 08/01/2020. 7. 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 8. Degenerative joint disease. 9. Bandemia. 10. Lactic acidosis. 11. Hypertension/hyperlipidemia. 12. History of chronic kidney disease. Pt refused for right above-knee ampuation so underwent salvage therapy with September 04 2020 Right knee infection with distal femoral replacement rotating-hinge knee implant present Underwent Explantation of femoral component and hinge portion, fixation of a distal tibial shaft fracture and placement of an antibiotic rigid spacer Complications noted tibial shaft fracture was noted with attempted removal of tibial component and fixated Knee hardware in place Plan: Plan of Care Patient underwent complicated surgery on September 04, 2020 Operative note reviewed Discussed with Dr. Rossi this a.m. Cont Daptomycin 10mg/kg daily (08/30) and Rifampin ( 08/30), rifampin is for synergy only Pharmacy to assist with drug drug interactions for rifampin with other meds Follow up labs and cultures. F/U minocycline susceptibilities to MRSA. Discussed with micro lab Wound care as directed by Orthopedics. PT and OT as directed Continue supportive care. Overall prognosis poor INES RIOS MD Sep 05, 2020 08:26
[2020-09-05] MEDS: OXYBUTYNIN CHLORIDE 5 MG TABLET PO SCH ×3 (09:06→21:12)
[2020-09-05] MEDS: MULTIVITAMIN with MINERAL TABLET. PO SCH (09:06)
[2020-09-05] MEDS: DOCUSATE SODIUM 100 MG CAPSULE. PO SCH ×2 (09:06→21:12)
[2020-09-05] MEDS: CHOLECALCIFEROL (VITAMIN D3) 1,000 UNIT TABLET PO SCH (09:07)
[2020-09-05] MEDS: riFAMpin 300 MG CAPSULE. PO SCH ×2 (09:07→21:13)
[2020-09-05] MEDS: LACTOBACILLUS RHAMNOSUS GG 1 CAPSULE. PO SCH ×2 (09:07→21:12)
[2020-09-05 09:33] LABS: CALCIUM 7.2 mg/dL (8.5-10.1); CREATININE 0.9 mg/dL (0.6-1.0); POTASSIUM 4.1 mmol/L (3.5-5.1)
--- NOTE | 2020-09-05 09:55 | PDOC ---
PROGRESS NOTES Date of Service: DATE: 09/05/20 TIME: 09:55 Chief Complaint Chief Complaint ASSESSMENT Right knee swelling and discharge and pain after 2 recent knee replacements. Ms. Hairston is a 89 old female periprosthetic distal femur fracture above well fixated right total knee arthroplasty with minimal bone available for distal fixation. JULY 2020 She had removal of components and placement of a distal femoral replacement with rotating hinge construct. FEVER T MAX 101.6F 6-17 SEPSIS PLAN ADMIT hold off on antibiotics until he takes the patient to surgery Postoperatively, she is going to need wound care, PT, OT and probably correction facility. ID CONSULT BLOOD CULTURES Operative procedure: Irrigation and debridement right knee with superficial and deep cultures and retention of hardware 6-18 6-18 hold off on antibiotics until he takes the patient to surgery Postoperatively, she is going to need wound care, PT, OT and probably correction facility. ID CONSULT BLOOD CULTURES Operative procedure: Irrigation and debridement right knee with superficial and deep cultures and retention of hardware 6-18 37 min pt exam, chart review, > 50% of time spent with exam, chart review, pt care coordination 6-19 emperic iv antibiotics Postoperatively, she is going to need wound care, PT, OT and probably correction facility. ID CONSULT BLOOD CULTURES Operative procedure: Irrigation and debridement right knee with superficial and deep cultures and retention of hardware 6-18 38 min pt exam, chart review, > 50% of time spent with exam, chart review, pt care coordination 6-20 pain improving emperic iv antibiotics Postoperatively, wound care, PT, OT and probably correction facility. ID CONSULT BLOOD CULTURES Operative procedure: Irrigation and debridement right knee with superficial and deep cultures and retention of hardware 618 Procedure Result GRAM STAIN Final Final GRAM POS COCCI CLUSTERS:MODERATE RBC:MANY SQUAMOUS EPI CELL:NOT APPLICABLE PMN (WBCs):MANY Unless otherwise specified, Testing Performed by: [address] [address] For Inquires, the Physician may contact the Microbiology department at [phone] ANAEROBIC-AEROBIC CULTURE Preliminary Preliminary MANY [STAPHYLOCOCCUS AUREUS (MRSA)] on 08/29/20 at 1351 STAPHYLOCOCCUS AUREUS (MRSA) ANTIMICROBIAL SUSCEPTIBILITY Preliminary Comment POS JC TYPE 38 STAPHYLOCOCCUS AUREUS (MRSA) ANTIBIOTIC RESULT INTERPRETATION AZITHROMYCIN >4 R CLINDAMYCIN <=0.25 R* CEFOXITIN SCREEN >4 POS CIPROFLOXACIN >2 R CEFTAROLINE 1 S DAPTOMYCIN 1 S ERYTHROMYCIN >4 R GENTAMICIN >8 R INDUCIBLE CLINDAMYCIN >4/0.5 POS LINEZOLID 2 S LEVOFLOXACIN >4 R OXACILLIN >2 R PENICILLIN >2 R* RIFAMPIN <=1 S TRIMETHOPRIM/SULFAMETHOXAZOLE >2/38 R TETRACYCLINE >8 R RUN DATE: 08/30/20 [facility] *LIVE* PAGE 2 RUN TIME: 913 Specimen Inquiry SPEC: [id number] PATIENT: MARIKAYONIS [id number] (Continued) Procedure Result CONTINUED ON NEXT PAGE RUN DATE: 08/30/20 [facility] *LIVE* PAGE 3 RUN TIME: 0914 Specimen Inquiry SPEC: [id number] PATIENT: YONIS HAIRSTON [id number] (Continued) SPEC #: [id number] OFE: 08/27/20 STATUS: RES REQ #: [id number] RECD: 08/28/[address]: JUDIE HUBBARD III, DO SOURCE: LEG ENTR: 08/28/[address]: [facility]AN RIOS [facility] De Jesus MD ORDERED: ANAER/AEROB/GS COMMENTS: R LEG SUBCUTANEOUS -------- ---- Procedure Result GRAM STAIN Final Final GRAM POS COCCI CLUSTERS:MODERATE RBC:MODERATE SQUAMOUS EPI CELL:RARE PMN (WBCs):MANY Unless otherwise specified, Testing Performed by: [address] [address] For Inquires, the Physician may contact the Microbiology department at [phone] ANAEROBIC-AEROBIC CULTURE Preliminary Preliminary MANY [STAPHYLOCOCCUS AUREUS (MRSA)] on 08/29/20 at 1351 SEE CULTURE AN663 FOR SUSCEPTIBILITY RESULTS STAPHYLOCOCCUS AUREUS (MRSA) Unless otherwise specified, Testing Performed by: [facility] [address] [place] [address] For Inquires, the Physician may contact the Microbiology department at [phone] --- --------- 36 min pt exam, chart review, > 50% of time spent with exam, chart review, pt care coordination 6-21 pain improving emperic iv antibiotics Postoperatively, wound care, PT, OT and probably correction facility. ID CONSULT BLOOD CULTURES Operative procedure: Irrigation and debridement right knee with superficial and deep cultures and retention of hardware 18 Procedure Result GRAM STAIN Final Final GRAM POS COCCI CLUSTERS:MODERATE RBC:MANY SQUAMOUS EPI CELL:NOT APPLICABLE PMN (WBCs):MANY Unless otherwise specified, Testing Performed by: [facility] [address] [place] [address] For Inquires, the Physician may contact the Microbiology department at [phone] ANAEROBIC-AEROBIC CULTURE Preliminary Preliminary MANY [STAPHYLOCOCCUS AUREUS (MRSA)] on 06/19/21 at 1351 STAPHYLOCOCCUS AUREUS (MRSA) ANTIMICROBIAL SUSCEPTIBILITY Preliminary Comment POS JC TYPE 38 STAPHYLOCOCCUS AUREUS (MRSA) ANTIBIOTIC RESULT INTERPRETATION AZITHROMYCIN >4 R CLINDAMYCIN <=0.25 R* CEFOXITIN SCREEN >4 POS CIPROFLOXACIN >2 R CEFTAROLINE 1 S DAPTOMYCIN 1 S ERYTHROMYCIN >4 R GENTAMICIN >8 R INDUCIBLE CLINDAMYCIN >4/0.5 POS LINEZOLID 2 S LEVOFLOXACIN >4 R OXACILLIN >2 R PENICILLIN >2 R* RIFAMPIN <=1 S TRIMETHOPRIM/SULFAMETHOXAZOLE >2/38 R TETRACYCLINE >8 R RUN DATE: 08/30/20 [facility] *LIVE* PAGE 2 RUN TIME: 913 Specimen Inquiry SPEC: [id number] PATIENT: YONIS HAIRSTON [id number] (Continued) ----- ------- Procedure Result CONTINUED ON NEXT PAGE RUN DATE: 08/30/20 [facility] *LIVE* PAGE 3 RUN TIME: 913 Specimen Inquiry SPEC: [id number] PATIENT: YONIS HAIRSTON [id number] (Continued) SPEC #: [id number] OFE: 08/27/20 STATUS: RES REQ #: [id number] RECD: 08/28/[address]: JUDIE HUBBARD III, DO SOURCE: LEG ENTR: 08/28/[address]: YAN RIOS MD [facility]: WOUND PULS,BEVERLY De Jesus MD ORDERED: ANAER/AERERIC/GS COMMENTS: R LEG SUBCUTANEOUS Procedure Result GRAM STAIN Final Final GRAM POS COCCI CLUSTERS:MODERATE RBC:MODERATE SQUAMOUS EPI CELL:RARE PMN (WBCs):MANY Unless otherwise specified, Testing Performed by: [address] [address] For Inquires, the Physician may contact the Microbiology department at [phone] ANAEROBIC-AEROBIC CULTURE Preliminary Preliminary MANY [STAPHYLOCOCCUS AUREUS (MRSA)] on 08/29/20 at 1351 SEE CULTURE AN663 FOR SUSCEPTIBILITY RESULTS STAPHYLOCOCCUS AUREUS (MRSA) Unless otherwise specified, Testing Performed by: [address] [address] For Inquires, the Physician may contact the Microbiology department at [phone] 26 min pt exam, chart review, > 50% of time spent with exam, chart review, pt care coordination Cont Daptomycin higher dose 10mg/kg daily (08/30) and Rifampin ( 08/30). Avoid IV vancomycin due to BERHANE . monitor CK closely Follow up labs and cultures. 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 6 pain improving emperic iv antibiotics Postoperatively, wound care, PT, OT and probably correction facility. ID CONSULT BLOOD CULTURES Operative procedure: Irrigation and debridement right knee with superficial and deep cultures and retention of hardware 08-28 Procedure Result GRAM STAIN Final Final GRAM POS COCCI CLUSTERS:MODERATE RBC:MANY SQUAMOUS EPI CELL:NOT APPLICABLE PMN (WBCs):MANY Unless otherwise specified, Testing Performed by: [address] [address] For Inquires, the Physician may contact the Microbiology department at [phone] ANAEROBIC-AEROBIC CULTURE Preliminary Preliminary MANY [STAPHYLOCOCCUS AUREUS (MRSA)] on 08/29/20 at 1351 STAPHYLOCOCCUS AUREUS (MRSA) ANTIMICROBIAL SUSCEPTIBILITY Preliminary Comment POS JC TYPE 38 STAPHYLOCOCCUS AUREUS (MRSA) ANTIBIOTIC RESULT INTERPRETATION AZITHROMYCIN >4 R CLINDAMYCIN <=0.25 R* CEFOXITIN SCREEN >4 POS CIPROFLOXACIN >2 R CEFTAROLINE 1 S DAPTOMYCIN 1 S ERYTHROMYCIN >4 R GENTAMICIN >8 R INDUCIBLE CLINDAMYCIN >4/0.5 POS LINEZOLID 2 S LEVOFLOXACIN >4 R OXACILLIN >2 R PENICILLIN >2 R* RIFAMPIN <=1 S TRIMETHOPRIM/SULFAMETHOXAZOLE >38 R TETRACYCLINE >8 R RUN DATE: 08/30/20 [facility] *LIVE* PAGE 2 RUN TIME: 913 Specimen Inquiry SPEC: [id number] PATIENT: ANA LUISAYONIS CASAS [id number] (Continued) Procedure Result CONTINUED ON NEXT PAGE RUN DATE: 08/30/20 [facility] *LIVE* PAGE 3 RUN TIME: 913 Specimen Inquiry SPEC: [id number] PATIENT: YONIS HAIRSTON [id number] (Continued) SPEC #: [id number] OFE: 08/27/20 STATUS: RES REQ #: [id number] RECD: 08/28/20-[address]: JUDIE HUBBARD III, DO SOURCE: LEG ENTR: 08/28/[address]: YAN RIOS MD [facility]: WOUND BEVERLY SPENCER MD ORDERED: ANAER/CHAI/KARI COMMENTS: R LEG SUBCUTANEOUS Procedure Result GRAM STAIN Final Final GRAM POS COCCI CLUSTERS:MODERATE RBC:MODERATE SQUAMOUS EPI CELL:RARE PMN (WBCs):MANY Unless otherwise specified, Testing Performed by: [address] [address] For Inquires, the Physician may contact the Microbiology department at [phone] ANAEROBIC-AEROBIC CULTURE Preliminary Preliminary MANY [STAPHYLOCOCCUS AUREUS (MRSA)] on 08/29/20 at 1351 SEE CULTURE AN663 FOR SUSCEPTIBILITY RESULTS STAPHYLOCOCCUS AUREUS (MRSA) Unless otherwise specified, Testing Performed by: [address] [address] For Inquires, the Physician may contact the Microbiology department at [phone] 26 min pt exam, chart review, > 50% of time spent with exam, chart review, pt care coordination Cont Daptomycin higher dose 10mg/kg daily (08/30) and Rifampin ( 08/30). Av oid IV vancomycin due to BERHANE . monitor CK closely Follow up labs and cultures. 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 6 pain improving emperic iv antibiotics Postoperatively, wound care, PT, OT and probably correction facility. ID CONSULT BLOOD CULTURES Operative procedure: Irrigation and debridement right knee with superficial and deep cultures and retention of hardware 6-18 Procedure Result GRAM STAIN Final Final GRAM POS COCCI CLUSTERS:MODERATE RBC:MANY SQUAMOUS EPI CELL:NOT APPLICABLE PMN (WBCs):MANY Unless otherwise specified, Testing Performed by: [address] [address] For Inquires, the Physician may contact the Microbiology department at [phone] ANAEROBIC-AEROBIC CULTURE Preliminary Preliminary MANY [STAPHYLOCOCCUS AUREUS (MRSA)] on 08/29/20 at 1351 STAPHYLOCOCCUS AUREUS (MRSA) ANTIMICROBIAL SUSCEPTIBILITY Preliminary Comment POS JC TYPE 38 STAPHYLOCOCCUS AUREUS (MRSA) ANTIBIOTIC RESULT INTERPRETATION AZITHROMYCIN >4 R CLINDAMYCIN <=0.25 R* CEFOXITIN SCREEN >4 POS CIPROFLOXACIN >2 R CEFTAROLINE 1 S DAPTOMYCIN 1 S ERYTHROMYCIN >4 R GENTAMICIN >8 R INDUCIBLE CLINDAMYCIN >4/0.5 POS LINEZOLID 2 S LEVOFLOXACIN >4 R OXACILLIN >2 R PENICILLIN >2 R* RIFAMPIN <=1 S TRIMETHOPRIM/SULFAMETHOXAZOLE >2/38 R TETRACYCLINE >8 R -------- ---- RUN DATE: 08/30/20 [facility] *LIVE* PAGE 2 RUN TIME: 913 Specimen Inquiry SPEC: [id number] PATIENT: YONIS HAIRSTON [id number] (Continued) Procedure Result CONTINUED ON NEXT PAGE RUN DATE: 08/30/20 [facility] *LIVE* PAGE 3 RUN TIME: 913 Specimen Inquiry --------- --- SPEC: [id number] PATIENT: YONIS HAIRSTON [id number] (Continued) SPEC #: [id number] OFE: 08/27/20 STATUS: RES REQ #: [id number] RECD: 08/28/20-[address]: JUDIE HUBBARD III, DO SOURCE: LEG ENTR: 08/28/[address]: YAN RIOS MD [facility]: WOUND BEVERLY SPENCER MD ORDERED: SHAHEEN/CHAI/KARI COMMENTS: R LEG SUBCUTANEOUS Procedure Result ------ ------ GRAM STAIN Final Final GRAM POS COCCI CLUSTERS:MODERATE RBC:MODERATE SQUAMOUS EPI CELL:RARE PMN (WBCs):MANY Unless otherwise specified, Testing Performed by: [address] [address] For Inquires, the Physician may contact the Microbiology department at [phone] ANAEROBIC-AEROBIC CULTURE Preliminary Preliminary MANY [STAPHYLOCOCCUS AUREUS (MRSA)] on 08/29/20 at 1351 SEE CULTURE AN663 FOR SUSCEPTIBILITY RESULTS STAPHYLOCOCCUS AUREUS (MRSA) Unless otherwise specified, Testing Performed by: [address] [address] For Inquires, the Physician may contact the Microbiology department at [phone] 36 min pt exam, chart review, > 50% of time spent with exam, chart review, pt care coordination Cont Daptomycin higher dose 10mg/kg daily (08/30) and Rifampin ( 08/30). Avoid IV vancomycin due to BERHANE . monitor CK closely Follow up labs and cultures. 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 further surgical plans per orthopedics if pt is a candidate, . Difficult surgical candidate due to femur implant.... Despite aggressive medical management patient is at high risk of limb loss 6-25 pain improving emperic iv antibiotics Postoperatively, wound care, PT, OT and probably correction facility. ID CONSULT BLOOD CULTURES Operative procedure: Irrigation and debridement right knee with superficial and deep cultures and retention of hardware 18 Procedure Result GRAM STAIN Final Final GRAM POS COCCI CLUSTERS:MODERATE RBC:MANY SQUAMOUS EPI CELL:NOT APPLICABLE PMN (WBCs):MANY Unless otherwise specified, Testing Performed by: [address] [address] For Inquires, the Physician may contact the Microbiology department at [phone] ANAEROBIC-AEROBIC CULTURE Preliminary Preliminary MANY [STAPHYLOCOCCUS AUREUS (MRSA)] on 08/29/20 at 1351 STAPHYLOCOCCUS AUREUS (MRSA) ANTIMICROBIAL SUSCEPTIBILITY Preliminary Comment POS JC TYPE 38 STAPHYLOCOCCUS AUREUS (MRSA) ANTIBIOTIC RESULT INTERPRETATION AZITHROMYCIN >4 R CLINDAMYCIN <=0.25 R* CEFOXITIN SCREEN >4 POS CIPROFLOXACIN >2 R CEFTAROLINE 1 S DAPTOMYCIN 1 S ERYTHROMYCIN >4 R GENTAMICIN >8 R INDUCIBLE CLINDAMYCIN >4/0.5 POS LINEZOLID 2 S LEVOFLOXACIN >4 R OXACILLIN >2 R PENICILLIN >2 R* RIFAMPIN <=1 S TRIMETHOPRIM/SULFAMETHOXAZOLE >2/38 R TETRACYCLINE >8 R RUN DATE: 08/30/20 [facility] *LIVE* PAGE 2 RUN TIME: 913 Specimen Inquiry SPEC: [id number] PATIENT: YONIS HAIRSTON [id number] (Continued) Procedure Result CONTINUED ON NEXT PAGE RUN DATE: 08/30/20 [facility] *LIVE* PAGE 3 RUN TIME: 913 Specimen Inquiry SPEC: 21:[id number] PATIENT: YONIS HAIRSTON [id number] (Continued) SPEC #: [id number] OFE: 08/27/20 STATUS: RES REQ #: [id number] RECD: 08/28/[address]: JUDIE HUBBARD III, DO SOURCE: LEG ENTR: 08/28/[address]: YAN RIOS MD SPD[facility]: BEVERLY HAYES MD ORDERED: SHAHEEN/CHAI/KARI COMMENTS: R LEG SUBCUTANEOUS Procedure Result GRAM STAIN Final Final GRAM POS COCCI CLUSTERS:MODERATE RBC:MODERATE SQUAMOUS EPI CELL:RARE PMN (WBCs):MANY Unless otherwise specified, Testing Performed by: [address] [address] For Inquires, the Physician may contact the Microbiology department at [phone] ANAEROBIC-AEROBIC CULTURE Preliminary Preliminary MANY [STAPHYLOCOCCUS AUREUS (MRSA)] on 08/29/20 at 1351 SEE CULTURE AN663 FOR SUSCEPTIBILITY RESULTS STAPHYLOCOCCUS AUREUS (MRSA) Unless otherwise specified, Testing Performed by: [address] [address] For Inquires, the Physician may contact the Microbiology department at [phone] 26 min pt exam, chart review, > 50% of time spent with exam, chart review, pt care coordination Cont Daptomycin higher dose 10mg/kg daily (08/30) and Rifampin ( 08/30). Avoid IV vancomycin due to BERHANE . monitor CK closely Follow up labs and cultures. 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 further surgical plans per orthopedics if pt is a candidate, . Difficult surgical candidate due to femur implant.... Despite aggressive medical management patient is at high risk of limb loss 6-25 pain improving emperic iv antibiotics Postoperatively, wound care, PT, OT and probably correction facility. ID CONSULT BLOOD CULTURES Operative procedure: Irrigation and debridement right knee with superficial and deep cultures and retention of hardware 6-18 Procedure Result GRAM STAIN Final Final GRAM POS COCCI CLUSTERS:MODERATE RBC:MANY SQUAMOUS EPI CELL:NOT APPLICABLE PMN (WBCs):MANY Unless otherwise specified, Testing Performed by: [address] [address] For Inquires, the Physician may contact the Microbiology department at [phone] ANAEROBIC-AEROBIC CULTURE Preliminary Preliminary MANY [STAPHYLOCOCCUS AUREUS (MRSA)] on 08/29/20 at 1351 STAPHYLOCOCCUS AUREUS (MRSA) ANTIMICROBIAL SUSCEPTIBILITY Preliminary Comment POS JC TYPE 38 STAPHYLOCOCCUS AUREUS (MRSA) ANTIBIOTIC RESULT INTERPRETATION AZITHROMYCIN >4 R CLINDAMYCIN <=0.25 R* CEFOXITIN SCREEN >4 POS CIPROFLOXACIN >2 R CEFTAROLINE 1 S DAPTOMYCIN 1 S ERYTHROMYCIN >4 R GENTAMICIN >8 R INDUCIBLE CLINDAMYCIN >4/0.5 POS LINEZOLID 2 S LEVOFLOXACIN >4 R OXACILLIN >2 R PENICILLIN >2 R* RIFAMPIN <=1 S TRIMETHOPRIM/SULFAMETHOXAZOLE >2/38 R TETRACYCLINE >8 R RUN DATE: 08/30/20 [facility] *LIVE* PAGE 2 RUN TIME: 913 Specimen Inquiry SPEC: [id number] PATIENT: YONIS HAIRSTON [id number] (Continued) ------- ----- Procedure Result CONTINUED ON NEXT PAGE RUN DATE: 08/30/20 [facility] *LIVE* PAGE 3 RUN TIME: 913 Specimen Inquiry SPEC: [id number] PATIENT: YONIS HAIRSTON [id number] (Continued) SPEC #: 21:[id number] OFE: 08/27/20 STATUS: RES REQ #: [id number] RECD: 08/28/[address] [facility] DR: JUDIE HUBBARD III, DO SOURCE: LEG ENTR: 08/28/[address]: YAN RIOS MD [facility]: WOUND PULS,BEVERLY De Jesus MD ORDERED: ANAER/AEROB/GS COMMENTS: R LEG SUBCUTANEOUS Procedure Result GRAM STAIN Final Final GRAM POS COCCI CLUSTERS:MODERATE RBC:MODERATE SQUAMOUS EPI CELL:RARE PMN (WBCs):MANY Unless otherwise specified, Testing Performed by: [address] [address] For Inquires, the Physician may contact the Microbiology department at [phone] ANAEROBIC-AEROBIC CULTURE Preliminary Preliminary MANY [STAPHYLOCOCCUS AUREUS (MRSA)] on 08/29/20 at 1351 SEE CULTURE AN663 FOR SUSCEPTIBILITY RESULTS STAPHYLOCOCCUS AUREUS (MRSA) Unless otherwise specified, Testing Performed by: [address] [address] For Inquires, the Physician may contact the Microbiology department at [phone] 26 min pt exam, chart review, > 50% of time spent with exam, chart review, pt care coordination Cont Daptomycin higher dose 10mg/kg daily (08/30) and Rifampin ( 08/30). Avoid IV vancomycin due to BERHANE . monitor CK closely Follow up labs and cultures. 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 further surgical plans per orthopedics if pt is a candidate, . Difficult surgical candidate due to femur implant.... Despite aggressive medical management patient is at high risk of limb loss family are decided on this could proceed with surgical treatment accordingly and would have to arrange the materials likely with surgery 6- pain improving emperic iv antibiotics Postoperatively, wound care, PT, OT and probably correction facility. ID CONSULT BLOOD CULTURES Operative procedure: Irrigation and debridement right knee with superficial and deep cultures and retention of hardware 08-28 Procedure Result GRAM STAIN Final Final GRAM POS COCCI CLUSTERS:MODERATE RBC:MANY SQUAMOUS EPI CELL:NOT APPLICABLE PMN (WBCs):MANY Unless otherwise specified, Testing Performed by: [address] [address] For Inquires, the Physician may contact the Microbiology department at [phone] ANAEROBIC-AEROBIC CULTURE Preliminary Preliminary MANY [STAPHYLOCOCCUS AUREUS (MRSA)] on 08/29/20 at 1351 STAPHYLOCOCCUS AUREUS (MRSA) ANTIMICROBIAL SUSCEPTIBILITY Preliminary Comment POS JC TYPE 38 STAPHYLOCOCCUS AUREUS (MRSA) ANTIBIOTIC RESULT INTERPRETATION AZITHROMYCIN >4 R CLINDAMYCIN <=0.25 R* CEFOXITIN SCREEN >4 POS CIPROFLOXACIN >2 R CEFTAROLINE 1 S DAPTOMYCIN 1 S ERYTHROMYCIN >4 R GENTAMICIN >8 R INDUCIBLE CLINDAMYCIN >4/0.5 POS LINEZOLID 2 S LEVOFLOXACIN >4 R OXACILLIN >2 R PENICILLIN >2 R* RIFAMPIN <=1 S TRIMETHOPRIM/SULFAMETHOXAZOLE >2/38 R TETRACYCLINE >8 R RUN DATE: 08/30/20 [facility] *LIVE* PAGE 2 RUN TIME: 913 Specimen Inquiry SPEC: [id number] PATIENT: YONIS HAIRSTON Francine [id number] (Continued) Procedure Result CONTINUED ON NEXT PAGE RUN DATE: 08/30/20 [facility] *LIVE* PAGE 3 RUN TIME: 0914 Specimen Inquiry SPEC: [id number] PATIENT: MARIKAYONIS [id number] (Continued) SPEC #: [id number] OFE: 08/27/20 STATUS: RES REQ #: [id number] RECD: 08/28/[address]: JUDIE HUBBARD III, DO SOURCE: LEG ENTR: 08/28/[address]: [facility]OS [facility] De Jesus MD ORDERED: ANAER/AEROB/GS COMMENTS: R LEG SUBCUTANEOUS Procedure Result GRAM STAIN Final Final GRAM POS COCCI CLUSTERS:MODERATE RBC:MODERATE SQUAMOUS EPI CELL:RARE PMN (WBCs):MANY Unless otherwise specified, Testing Performed by: [facility] [place] [address] For Inquires, the Physician may contact the Microbiology department at [phone] ANAEROBIC-AEROBIC CULTURE Preliminary Preliminary MANY [STAPHYLOCOCCUS AUREUS (MRSA)] on 08/29/20 at 1351 SEE CULTURE AN663 FOR SUSCEPTIBILITY RESULTS STAPHYLOCOCCUS AUREUS (MRSA) Unless otherwise specified, Testing Performed by: [facility] [address] [place] [address] For Inquires, the Physician may contact the Microbiology department at [phone] 26 min pt exam, chart review, > 50% of time spent with exam, chart review, pt care coordination Cont Daptomycin higher dose 10mg/kg daily (08/30) and Rifampin ( 08/30). Avoid IV vancomycin due to BERHANE . monitor CK closely Follow up labs and cultures. 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 further surgical plans per orthopedics if pt is a candidate, . Difficult surgical candidate due to femur implant.... Despite aggressive medical management patient is at high risk of limb loss 6- pain improving emperic iv antibiotics Postoperatively, wound care, PT, OT and probably correction facility. ID CONSULT BLOOD CULTURES Operative procedure: Irrigation and debridement right knee with superficial and deep cultures and retention of hardware 618 Procedure Result GRAM STAIN Final Final GRAM POS COCCI CLUSTERS:MODERATE RBC:MANY SQUAMOUS EPI CELL:NOT APPLICABLE PMN (WBCs):MANY Unless otherwise specified, Testing Performed by: [address] [address] For Inquires, the Physician may contact the Microbiology department at [phone] ANAEROBIC-AEROBIC CULTURE Preliminary Preliminary MANY [STAPHYLOCOCCUS AUREUS (MRSA)] on 08/29/20 at 1351 STAPHYLOCOCCUS AUREUS (MRSA) ANTIMICROBIAL SUSCEPTIBILITY Preliminary Comment POS JC TYPE 38 STAPHYLOCOCCUS AUREUS (MRSA) ANTIBIOTIC RESULT INTERPRETATION AZITHROMYCIN >4 R CLINDAMYCIN <=0.25 R* CEFOXITIN SCREEN >4 POS CIPROFLOXACIN >2 R CEFTAROLINE 1 S DAPTOMYCIN 1 S ERYTHROMYCIN >4 R GENTAMICIN >8 R INDUCIBLE CLINDAMYCIN >4/0.5 POS LINEZOLID 2 S LEVOFLOXACIN >4 R OXACILLIN >2 R PENICILLIN >2 R* RIFAMPIN <=1 S TRIMETHOPRIM/SULFAMETHOXAZOLE >2/38 R TETRACYCLINE >8 R RUN DATE: 08/30/20 [facility] *LIVE* PAGE 2 RUN TIME: 913 Specimen Inquiry SPEC: [id number] PATIENT: YONIS HAIRSTON [id number] (Continued) Procedure Result CONTINUED ON NEXT PAGE ------- ----- RUN DATE: 08/30/20 [facility] *LIVE* PAGE 3 RUN TIME: 913 Specimen Inquiry SPEC: [id number] PATIENT: YONIS HAIRSTON [id number] (Continued) SPEC #: [id number] OFE: 08/27/20 STATUS: RES REQ #: [id number] RECD: 08/28/[address] [facility] [address]: JUDIE HUBBARD III, DO SOURCE: LEG ENTR: 08/28/[address]: YAN RIOS MD [facility]: WOUND PULS,BEVERLY De Jesus MD ORDERED: ANAER/AEROB/GS COMMENTS: R LEG SUBCUTANEOUS Procedure Result GRAM STAIN Final Final GRAM POS COCCI CLUSTERS:MODERATE RBC:MODERATE SQUAMOUS EPI CELL:RARE PMN (WBCs):MANY Unless otherwise specified, Testing Performed by: [address] [address] For Inquires, the Physician may contact the Microbiology department at [phone] ANAEROBIC-AEROBIC CULTURE Preliminary Preliminary MANY [STAPHYLOCOCCUS AUREUS (MRSA)] on 08/29/20 at 1351 SEE CULTURE AN663 FOR SUSCEPTIBILITY RESULTS STAPHYLOCOCCUS AUREUS (MRSA) Unless otherwise specified, Testing Performed by: [address] [address] For Inquires, the Physician may contact the Microbiology department at [phone] 36 min pt exam, chart review, > 50% of time spent with exam, chart review, pt care coordination Cont Daptomycin higher dose 10mg/kg daily (08/30) and Rifampin ( 08/30). Avoid IV vancomycin due to BERHANE . monitor CK closely Follow up labs and cultures. 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 further surgical plans per orthopedics if pt is a candidate, . Difficult surgical candidate due to femur implant.... Despite aggressive medical management patient is at high risk of limb loss family are decided on this could proceed with surgical treatment accordingly and would have to arrange the materials likely with surgery Cont Daptomycin 10mg/kg daily (08/30) and Rifampin ( 08/30), rifampin is for [facility] to assist with drug drug interactions for rifampin with other meds History of Present Illness History of Present Illness ADMIT DATE: 08/27/2020 CHIEF COMPLAINT: Right knee swelling, pain, discharge. HISTORY OF PRESENT ILLNESS: The patient is a pleasant 89-year-old female who underwent a right knee replacement with Dr. Rossi on 07/21 last month. She was doing relatively well, but then she fell and refractured the knee. I spoke with Dr. Rossi about the procedure. He had to go back in and put in a complex rotating hinge as she did not have much bone left above the previous knee replacement. Postoperatively, she was sent to [place] for rehabilitation. She was doing relatively well once again, but then started having some drainage. Dr. Rossi requested that she be put on a wound VAC. Apparently, the wound VAC situation was not helping much. Dr. Rossi states that it probably was not put on properly. Nevertheless, the patient came to our ER today with more drainage and some swelling and pain. Dr. Rossi called Dr. Cortes and had him do an arthrocentesis. The patient is now being examined on the medical floor, where she is getting ready to go to surgery here in a few minutes. PAST MEDICAL HISTORY: The above-mentioned complex knee replacement twice; arthritis; GERD; hyperlipidemia; hypertension; thyroid surgery; overactive bladder; partial hysterectomy, right; multiple hernia repairs. ALLERGIES: PREDNISONE AND CARAFATE. FAMILY HISTORY: Diabetes. SOCIAL HISTORY: She does not drink, smoke or take drugs. She is retired; has 3 children, one of her daughters is here, she seems to be a very good support for her. MEDICATIONS: Reviewed. Please refer to the MRAD. REVIEW OF SYSTEMS: GENERAL: No history of weight change, weakness or fevers. SKIN: No bruising, hair changes or rashes. EYES: No blurred, double or loss of vision. NOSE AND THROAT: No history of nosebleeds, hoarseness or sore throat. HEART: No history of palpitations, chest pain or shortness of breath on exertion. LUNGS: Denies cough, hemoptysis, wheezing or shortness of breath. GASTROINTESTINAL: Denies changes in appetite, nausea, vomiting, diarrhea or constipation. GENITOURINARY: No history of frequency, urgency, hesitancy or nocturia. NEUROLOGIC: Denies history of numbness, tingling, tremor or weakness. PSYCHIATRIC: No history of panic, anxiety or depression. ENDOCRINE: No history of heat or cold intolerance, polyuria or polydipsia. EXTREMITIES: She complains of right knee pain. Vitals Vitals Vital Signs Date Time Temp Pulse Resp B/P (MAP) Pulse Ox O2 Delivery O2 Flow Rate FiO2 09/05/20 09:08 98 Room Air 2.0 09/05/20 07:00 98.4 87 18 127/38 (67) 98.4 Physical Exam Physical Exam GENERAL: Alert, oriented x 3, pleasant female, lying in bed comfortably, in no acute distress. HEENT: Normocephalic, atraumatic. Anicteric. NECK: Supple. No JVD. LUNGS: Clear bilaterally. No wheezing. HEART: S1, S2. No gallops or murmurs. ABDOMEN: Soft, obese, nontender, nondistended. EXTREMITIES: Right lower extremity swelling present. Wound VAC in place. Minimal warmth. No surrounding erythema noted. Distal aspect of wound has swelling which appears to be a developing hematoma NEUROLOGIC: Alert, oriented x 3, grossly nonfocal. PSYCHIATRIC: Calm and cooperative. DERMATOLOGIC: Warm, dry, no generalized rash. PIV looks clean. General: Alert, Oriented X3, Cooperative, No acute distress Heart: Regular rate Lungs: Clear Abdomen: Normal bowel sounds, Soft Extremities: No cyanosis Labs LABS Laboratory Tests Test 09/05/20 07:40 Sodium Level 140 mmol/L (136-145) Potassium Level 4.1 mmol/L (3.5-5.1) Chloride Level 107 mmol/L (98-107) Carbon Dioxide Level 23 mmol/L (21-32) Anion Gap 10 (6-14) Blood Urea Nitrogen 18 mg/dL (7-20) Creatinine 0.9 mg/dL (0.6-1.0) Estimated GFR (Cockcroft-Gault) 59.0 Glucose Level 87 mg/dL (70-99) Calcium Level 7.2 mg/dL (8.5-10.1) Assessment and Plan Assessmemt and Plan Problems Medical Problems: (1) Cellulitis Status: Acute Comment Review of Relevant I have reviewed the following items fiorella (where applicable) has been applied. Labs Laboratory Tests Test 09/05/20 07:40 Sodium Level 140 mmol/L (136-145) Potassium Level 4.1 mmol/L (3.5-5.1) Chloride Level 107 mmol/L (98-107) Carbon Dioxide Level 23 mmol/L (21-32) Anion Gap 10 (6-14) Blood Urea Nitrogen 18 mg/dL (7-20) Creatinine 0.9 mg/dL (0.6-1.0) Estimated GFR (Cockcroft-Gault) 59.0 Glucose Level 87 mg/dL (70-99) Calcium Level 7.2 mg/dL (8.5-10.1) Laboratory Tests Test 09/05/20 07:40 Sodium Level 140 mmol/L (136-145) Potassium Level 4.1 mmol/L (3.5-5.1) Chloride Level 107 mmol/L (98-107) Carbon Dioxide Level 23 mmol/L (21-32) Anion Gap 10 (6-14) Blood Urea Nitrogen 18 mg/dL (7-20) Creatinine 0.9 mg/dL (0.6-1.0) Estimated GFR (Cockcroft-Gault) 59.0 Glucose Level 87 mg/dL (70-99) Calcium Level 7.2 mg/dL (8.5-10.1) Microbiology 08/27/20 Gram Stain - Final, Complete 08/27/20 Aerobic and Anaerobic Culture - Final, Complete 08/27/20 Antimicrobic Susceptibility - Final, Complete 08/27/20 AFB Specimen Processing Tissue - Final, Resulted 08/27/20 Acid Fast Bacilli Culture, Resulted Pending 08/27/20 Gram Stain - Final, Resulted 08/27/20 Fungal Culture, Resulted Pending 08/27/20 Fungal Culture Result 1, Resulted Pending 08/27/20 Blood Culture - Final, Complete NO GROWTH AFTER 5 DAYS Medications Current Medications Vancomycin HCl 1 gm/Sodium Chloride 250 ml @ 166.667 mls/hr 1X ONCE IV ; Start 08/27/20 at 14:00; Stop 08/27/20 at 14:04; Status DC Vancomycin HCl 1.75 gm/Sodium Chloride 500 ml @ 250 mls/hr 1X ONCE IV Last administered on 08/27/20at 15:13; Start 08/27/20 at 14:30; Stop 08/27/20 at 16:29; Status DC Sodium Chloride 1,000 ml @ 1,000 mls/hr 1X ONCE IV Last administered on 08/27/20at 15:12; Start 08/27/20 at 14:15; Stop 08/27/20 at 15:14; Status DC Fentanyl Citrate (Fentanyl 2ml Vial) 25 mcg PRN Q5MIN PRN IVP MILD PAIN 1-3; Start 08/27/20 at 16:30; Stop 08/28/20 at 16:29; Status DC Fentanyl Citrate (Fentanyl 2ml Vial) 50 mcg PRN Q5MIN PRN IVP MODERATE PAIN 4-6 Last administered on 08/27/20at 21:50; Start 08/27/20 at 16:30; Stop 08/28/20 at 16:29; Status DC Morphine Sulfate (Morphine Sulfate) 1 mg PRN Q10MIN PRN IVP SEVERE PAIN 7-10 Last administered on 08/27/20at 22:13; Start 08/27/20 at 16:30; Stop 08/28/20 at 16:29; Status DC Ringer's Solution 1,000 ml @ 30 mls/hr Q24H IV ; Start 08/27/20 at 16:30; Stop 08/28/20 at 04:29; Status DC Hydromorphone HCl (Dilaudid) 0.5 mg PRN Q10MIN PRN IVP SEVERE PAIN 7-10, 2nd CHOICE Last administered on 08/27/20at 22:24; Start 08/27/20 at 16:30; Stop 08/28/20 at 16:29; Status DC Prochlorperazine Edisylate (Compazine) 5 mg PACU PRN PRN IVP NAUSEA, MRX1; Start 08/27/20 at 16:30; Stop 08/28/20 at 16:29; Status DC Propofol (Diprivan) 200 mg STK-MED ONCE IV ; Start 08/27/20 at 19:50; Stop 08/27/20 at 19:51; Status DC Lidocaine HCl (Lidocaine Pf 2% Vial) 5 ml STK-MED ONCE .ROUTE ; Start 08/27/20 at 19:50; Stop 08/27/20 at 19:51; Status DC Fentanyl Citrate (Fentanyl 2ml Vial) 100 mcg STK-MED ONCE .ROUTE ; Start 08/27/20 at 19:58; Stop 08/27/20 at 19:58; Status DC Ondansetron HCl (Zofran) 4 mg STK-MED ONCE .ROUTE ; Start 08/27/20 at 20:36; Stop 08/27/20 at 20:37; Status DC Dexamethasone Sodium Phosphate (Decadron) 4 mg STK-MED ONCE .ROUTE ; Start 08/27/20 at 20:36; Stop 08/27/20 at 20:37; Status DC Phenylephrine HCl (PHENYLEPHRINE in 0.9% NACL PF) 1 mg STK-MED ONCE IV ; Start 08/27/20 at 20:37; Stop 08/27/20 at 20:37; Status DC Sevoflurane (Ultane) 60 ml STK-MED ONCE IH ; Start 08/27/20 at 21:22; Stop 08/27/20 at 21:22; Status DC Fentanyl Citrate (Fentanyl 2ml Vial) 100 mcg STK-MED ONCE .ROUTE ; Start 08/27/20 at 21:45; Stop 08/27/20 at 21:45; Status DC Morphine Sulfate (Morphine Sulfate) 2 mg STK-MED ONCE .ROUTE ; Start 08/27/20 at 22:01; Stop 08/27/20 at 22:01; Status DC Hydromorphone HCl (Dilaudid) 2 mg STK-MED ONCE .ROUTE ; Start 08/27/20 at 22:21; Stop 08/27/20 at 22:21; Status DC Sodium Chloride 1,000 ml @ 75 mls/hr [id number] IV Last administered on 08/30/20at 02:38; Start 08/28/20 at 09:45; Stop 08/30/20 at 15:48; Status DC Daptomycin 410 mg/ Sodium Chloride 50 ml @ 100 mls/hr Q24H IV Last administered on 08/29/20at 13:15; Start 08/28/20 at 12:30; Stop 08/30/20 at 10: 11; Status DC Piperacillin Sod/ Tazobactam Sod 3.375 gm/Sodium Chloride 50 ml @ 100 mls/hr Q6HRS IV Last administered on 08/30/20at 05:57; Start 08/28/20 at 12:00; Stop 08/30/20 at 10:11; Status DC Acetaminophen (Tylenol) 1,000 mg PRN BID PRN PO MILD PAIN / TEMP > 100.3'F Last administered on 09/05/20at 00:48; Start 08/28/20 at 14:45 Docusate Sodium (Colace) 100 mg BID PO Last administered on 09/05/20at 09:06; Start 08/28/20 at 21:00 Levothyroxine Sodium (Synthroid) 88 mcg DAILY07 PO Last administered on 09/05/20at 05:46; Start 08/29/20 at 07:00 Simvastatin (Zocor) 20 mg HS PO Last administered on 09/04/20at 21:17; Start 08/28/20 at 21:00 Tramadol HCl (Ultram) 50 mg PRN Q4HRS PRN PO MODERATE-SEVERE PAIN Last administered on 08/28/20at 15:01; Start 08/28/20 at 14:45 Vitamin D (Vitamin D3) 2,000 unit DAILY PO Last administered on 09/05/20at 09:07; Start 08/29/20 at 09:00 Non-Formulary Medication (Melatonin ) 1 tab QHS PO ; Start 08/28/20 at 21:00; Status UNV Multivitamins (Thera M Plus) 1 tab DAILY PO Last administered on 09/05/20at 09:06; Start 08/29/20 at 09:00 Pantoprazole Sodium (Protonix) 40 mg DAILYAC PO Last administered on 09/05/20at 05:46; Start 08/29/20 at 07:30 Oxybutynin Chloride (Ditropan) 5 mg [id number] PO Last administered on 09/05/20at 09:06; Start 08/28/20 at 21:00 Lactobacillus Rhamnosus (Culturelle) 1 cap BID PO Last administered on 09/05/20at 09:07; Start 08/29/20 at 21:00 Rifampin (Rifadin) 300 mg BID PO Last administered on 09/05/20at 09:07; Start 08/30/20 at 11:00 Daptomycin 550 mg/ Sodium Chloride 50 ml @ 100 mls/hr Q24H IV Last administered on 09/04/20at 11:11; Start 08/30/20 at 12:30 Vancomycin HCl (Vancomycin) 8 gm STK-MED ONCE CEMENT Last administered on 09/04/20at 15:13; Start 09/04/20 at 15:13; Stop 09/04/20 at 19:33; Status DC Tobramycin Sulfate (Tobramycin Powder) 9.6 gm STK-MED ONCE CEMENT Last administered on 09/04/20at 15:13; Start 09/04/20 at 15:13; Stop 09/04/20 at 19:33; Status DC Fentanyl Citrate (Fentanyl 2ml Vial) 25 mcg PRN Q5MIN PRN IV PAIN; Start 09/04/20 at 20:00; Stop 09/04/20 at 21:12; Status DC Fentanyl Citrate (Fentanyl 2ml Vial) 50 mcg PRN Q5MIN PRN IV PAIN; Start 09/04/20 at 20:00; Stop 09/04/20 at 21:12; Status DC Morphine Sulfate (Morphine Sulfate) 2 mg PRN Q10MIN PRN IV PAIN; Start 09/04/20 at 20:00; Stop 09/04/20 at 21:12; Status DC Atropine Sulfate (ATROPINE 0.5mg SYRINGE) 0.5 mg PRN 1X PRN IV SEE COMMENTS; Start 09/04/20 at 20:00; Stop 09/05/20 at 19:59 Naloxone HCl (Narcan) 0.04 mg PRN Q2MIN PRN IV SEE COMMENTS; Start 09/04/20 at 20:00; Stop 09/05/20 at 19:59 Hydromorphone HCl (Dilaudid) 0.5 mg PRN Q10MIN PRN IVP pain Last administered on 09/04/20at 19:45; Start 09/04/20 at 20:00; Stop 09/04/20 at 21:12; Status DC Ringer's Solution 1,000 ml @ 75 mls/hr [id number] IV Last administered on 09/05/20at 09:05; Start 09/04/20 at 17:00; Stop 09/05/20 at 16:59 Fentanyl Citrate (Fentanyl 2ml Vial) 25 mcg PRN Q3HRS PRN IVP SEVERE PAIN 7-10 Last administered on 09/05/20at 08:07; Start 09/04/20 at 21:15 Acetaminophen (Tylenol) 650 mg PRN Q4HRS PRN PO MILD PAIN / TEMP > 100.3'F Last administered on 09/05/20at 05:46; Start 09/05/20 at 05:45 Active Scripts Active Reported Acetaminophen 500 Mg Tablet 2 Tab PO PRN BID PRN 30 Days Tramadol Hcl 50 Mg Tablet 50 Mg PO Q4HRS PRN Melatonin 5 Mg Tab.rapdis 1 Tab PO QHS 30 Days Colace (Docusate Sodium) 100 Mg Capsule 1 Cap PO BID 30 Days Vesicare (Solifenacin Succinate) 10 Mg Tablet 1 Tab PO DAILY 30 Days Levothyroxine Sodium 88 Mcg Tablet 1 Tab PO DAILY Omeprazole 20 Mg Capsule.dr 1 Cap PO DAILY Vitamin D3 (Cholecalciferol (Vitamin D3)) 2,000 Unit Tablet 2,000 Unit PO DAILY Once Daily (Multivitamin) 1 Each Tablet 1 Each PO DAILY Simvastatin 20 Mg Tablet 20 Mg PO HS Vitals/I & O Vital Sign - Last 24 Hours 09/04/20 09/04/20 09/04/20 09/04/20 11:00 13:53 19:09 19:24 Temp 97.9 98.5 98.8 97.9 98.5 98.8 Pulse 83 78 84 70 Resp 16 16 16 18 B/P (MAP) 124/54 (77) 138/63 125/42 140/52 Pulse Ox 98 97 100 100 O2 Delivery Room Air Room Air Simple Mask Simple Mask O2 Flow Rate 10 6 09/04/20 09/04/20 09/04/20 09/04/20 19:30 19:39 19:45 19:54 Temp 98.8 98.8 98.8 98.8 Pulse 76 76 Resp 20 20 20 20 B/P (MAP) 137/53 124/59 Pulse Ox 95 95 100 100 O2 Delivery Room Air Room Air Simple Mask Room Air O2 Flow Rate 6.0 09/04/20 09/04/20 09/04/20 09/04/20 20:00 20:09 20:10 20:24 Temp 98.8 98.8 98.8 98.8 Pulse 78 80 Resp 20 20 18 20 B/P (MAP) 135/50 145/50 Pulse Ox 92 98 97 97 O2 Delivery Room Air Nasal Cannula Nasal Cannula Nasal Cannula O2 Flow Rate 2 2.0 2.0 09/04/20 09/04/20 09/04/20 09/04/20 20:39 20:50 21:05 21:17 Temp 98.8 97.5 98.8 97.5 Pulse 80 85 86 Resp 20 16 B/P (MAP) 150/53 130/40 (70) 105/50 (68) Pulse Ox 97 98 O2 Delivery Nasal Cannula Nasal Cannula Nasal Cannula Nasal Cannula O2 Flow Rate 2.0 2.0 2.0 09/04/20 09/04/20 09/04/20 09/04/20 21:20 21:35 21:50 23:05 Pulse 86 86 86 B/P (MAP) 126/51 (76) 127/47 (73) 117/52 (73) Pulse Ox 94 96 97 O2 Delivery Nasal Cannula Nasal Cannula Nasal Cannula Nasal Cannula O2 Flow Rate 2.0 2.0 2.0 2.0 09/04/20 09/05/20 09/05/20 09/05/20 23:35 00:35 01:31 01:35 Pulse 89 87 84 B/P (MAP) 124/53 (76) 111/48 (69) 108/39 (62) Pulse Ox 96 97 98 O2 Delivery Nasal Cannula Nasal Cannula Nasal Cannula Nasal Cannula O2 Flow Rate 2.0 2.0 2.0 09/05/20 09/05/20 09/05/20 09/05/20 02:01 03:00 04:45 05:15 Temp 98.1 98.1 Pulse 89 Resp 18 B/P (MAP) 107/48 (67) Pulse Ox 96 O2 Delivery Room Air Nasal Cannula Nasal Cannula Room Air O2 Flow Rate 2.0 2.0 09/05/20 09/05/20 09/05/20 07:00 08:07 09:08 Temp 98.4 98.4 Pulse 87 Resp 18 B/P (MAP) 127/38 (67) Pulse Ox 98 98 98 O2 Delivery Nasal Cannula Room Air Room Air O2 Flow Rate 2.0 2.0 2.0 Intake and Output 09/04/20 09/04/20 09/05/20 15:00 23:00 07:00 Intake Total 2550 ml Output Total 1225 ml 200 ml Balance 1325 ml -200 ml Nutrition Consultation Dietary Evaluation: Recommendations by RD: Dietary education by RD, Increase Calorie Intake, Protein supplementation Comments: continue Cardiac diet will send kris bid to promote wound healing continue with mvi Expected Outcomes/Goals: to meet >75% est nutr needs improved wound status Malnutrition Findings: Body Fat Depletion (Non Severe: Mild Depletion Weight Status: Overweight Justicifation of Admission Dx: Justifications for Admission: Justification of Admission Dx: N/A SUNSHINE GALEAS MD Sep 05, 2020 09:55
[2020-09-05] MEDS ORDERED: oxyCODONE/APAP 5/325 1 TAB TABLET PO PRN (10:30)
--- NOTE | 2020-09-05 11:13 | PDOC ---
PROGRESS NOTES Date of Service DATE: 09/05/20 TIME: 10:57 Subjective Subjective Problems overnight: Right leg is sore, IV pain medication working for a short time otherwise no complaints Objective Vital Signs Vital Signs Date Time Temp Pulse Resp B/P (MAP) Pulse Ox O2 Delivery O2 Flow Rate FiO2 09/05/20 10:24 98 Room Air 2.0 09/05/20 07:00 98.4 87 18 127/38 (67) 98.4 Physical Exam Wound VAC intact minimal drainage no redness or erythema distal neurovascular status intact with specific focus on the tibial and peroneal nerves which are intact sensory and motor function, knee and fracture fixation are stable Labs Laboratory Tests Test 09/05/20 07:40 Sodium Level 140 mmol/L (136-145) Potassium Level 4.1 mmol/L (3.5-5.1) Chloride Level 107 mmol/L (98-107) Carbon Dioxide Level 23 mmol/L (21-32) Anion Gap 10 (6-14) Blood Urea Nitrogen 18 mg/dL (7-20) Creatinine 0.9 mg/dL (0.6-1.0) Estimated GFR (Cockcroft-Gault) 59.0 Glucose Level 87 mg/dL (70-99) Calcium Level 7.2 mg/dL (8.5-10.1) Laboratory Tests Test 09/05/20 07:40 Sodium Level 140 mmol/L (136-145) Potassium Level 4.1 mmol/L (3.5-5.1) Chloride Level 107 mmol/L (98-107) Carbon Dioxide Level 23 mmol/L (21-32) Anion Gap 10 (6-14) Blood Urea Nitrogen 18 mg/dL (7-20) Creatinine 0.9 mg/dL (0.6-1.0) Estimated GFR (Cockcroft-Gault) 59.0 Glucose Level 87 mg/dL (70-99) Calcium Level 7.2 mg/dL (8.5-10.1) Assessment Assessment POD#1 placement antibiotic spacer right leg, ORIF tibial fracture fixation Plan Plan of Care I reviewed with her the specific details of the operation and the fact that in my judgment I could not get the tibial component out without destruction of the proximal tibia and the need to place additional hardware which would have its own concerns in terms of harboring infection and reviewed in detail the information that I conveyed to her daughter postoperatively. She confirmed the accuracy of her wishes as well. I did review the weightbearing restrictions with her of about 25% to protect the healing fracture expected for a few weeks. I am going to order oral Percocet for pain and have already ordered physical t herapy. All her questions were answered at present. Justicifation of Admission Dx: Justifications for Admission: Justification of Admission Dx: N/A GURU TORRES MD Sep 05, 2020 11:13
[2020-09-05 11:45] LABS: BASO # 0.1 x10^3/uL (0.0-0.2); BASO % 1 % (0-3); EOS % 0 % (0-3); HEMATOCRIT 28.6 % (36.0-47.0); HEMOGLOBIN 9.4 g/dL (12.0-15.5); LYMPH # 1.5 x10^3/uL (1.0-4.8); LYMPH % 13 % (24-48); MEAN CORPUSCULAR HEMOGLOBIN 31 pg (25-35); MEAN CORPUSCULAR HGB CONC 33 g/dL (31-37); MEAN CORPUSCULAR VOLUME 93 fL (79-100); MONO # 1.7 x10^3/uL (0.0-1.1); MONO % 15 % (0-9); NEUT # 8.5 x10^3/uL (1.8-7.7); NEUT % 72 % (31-73); PLATELET COUNT 274 x10^3/uL (140-400); RED BLOOD COUNT 3.09 x10^6/uL (3.50-5.40); RED CELL DISTRIBUTION WIDTH 15.9 % (11.5-14.5); WHITE BLOOD COUNT 11.8 x10^3/uL (4.0-11.0)
[2020-09-05] MEDS: DAPTOmycin (GENERIC) IVPB 550 MG in IV NORMAL SALINE 50ML 50 ML IV SCH (12:32)
[2020-09-05 14:20] LABS: % ATYL 1 % (0-0); % LYMPHS 16 % (24-48); % MONOS 6 % (0-10); % SEGS 77 % (35-66); PLT ESTIMATE ADEQUATE (ADEQUATE)
[2020-09-05 14:23] LABS: BURR CELLS FEW; POLYCHROMASIA SLIGHT
[2020-09-05 14:25] LABS: ANISOCYTOSIS SLIGHT; SCHISTOCYTES OCC
[2020-09-05 14:26] LABS: POIKILOCYTOSIS SLIGHT
[2020-09-05] MEDS: oxyCODONE/APAP 7.5/325 1 TAB TABLET PO PRN ×2 (14:45→21:13)
[2020-09-05] MEDS: SIMVASTATIN 20 MG TABLET PO SCH (21:13)
[2020-09-06] MEDS: oxyCODONE/APAP 7.5/325 1 TAB TABLET PO PRN ×4 (02:34→21:05)
[2020-09-06] MEDS: fentaNYL PF VIAL 100 MCG/2 ML VIAL IVP PRN ×3 (02:34→12:22)
[2020-09-06] MEDS: ACETAMINOPHEN 325 MG TABLET. PO PRN (02:35)
[2020-09-06 03:08] VITALS: BP 148/57
[2020-09-06 07:01] LABS: BASO % 0 % (0-3); EOS # 0.1 x10^3/uL (0.0-0.7); EOS % 1 % (0-3); HEMOGLOBIN 9.2 g/dL (12.0-15.5); LYMPH # 1.8 x10^3/uL (1.0-4.8); LYMPH % 16 % (24-48); MEAN CORPUSCULAR HEMOGLOBIN 30 pg (25-35); MEAN CORPUSCULAR HGB CONC 33 g/dL (31-37); MEAN CORPUSCULAR VOLUME 93 fL (79-100); MONO # 1.8 x10^3/uL (0.0-1.1); MONO % 16 % (0-9); NEUT # 7.6 x10^3/uL (1.8-7.7); NEUT % 67 % (31-73); PLATELET COUNT 249 x10^3/uL (140-400); RED BLOOD COUNT 3.03 x10^6/uL (3.50-5.40); RED CELL DISTRIBUTION WIDTH 15.3 % (11.5-14.5); WHITE BLOOD COUNT 11.3 x10^3/uL (4.0-11.0)
[2020-09-06] MEDS: LEVOTHYROXINE 88 MCG TABLET PO SCH (07:13)
[2020-09-06] MEDS: PANTOPRAZOLE 40 MG TABLET.DR. PO SCH (07:13)
[2020-09-06 08:00] VITALS: BP 113/47
[2020-09-06] MEDS: riFAMpin 300 MG CAPSULE. PO SCH ×2 (09:22→21:05)
[2020-09-06] MEDS: LACTOBACILLUS RHAMNOSUS GG 1 CAPSULE. PO SCH ×2 (09:22→21:05)
[2020-09-06] MEDS: DOCUSATE SODIUM 100 MG CAPSULE. PO SCH ×2 (09:22→21:05)
[2020-09-06] MEDS: OXYBUTYNIN CHLORIDE 5 MG TABLET PO SCH ×3 (09:23→21:05)
[2020-09-06] MEDS: MULTIVITAMIN with MINERAL TABLET. PO SCH (09:23)
[2020-09-06] MEDS: CHOLECALCIFEROL (VITAMIN D3) 1,000 UNIT TABLET PO SCH (09:23)
--- NOTE | 2020-09-06 10:50 | PDOC ---
PROGRESS NOTES Date of Service: DATE: 09/06/20 TIME: 10:50 Chief Complaint Chief Complaint ASSESSMENT Right knee swelling and discharge and pain after 2 recent knee replacements. Ms. Hairston is a 89 old female periprosthetic distal femur fracture above well fixated right total knee arthroplasty with minimal bone available for distal fixation. JULY 2020 She had removal of components and placement of a distal femoral replacement with rotating hinge construct. FEVER T MAX 101.6F 6-17 SEPSIS PLAN ADMIT hold off on antibiotics until he takes the patient to surgery Postoperatively, she is going to need wound care, PT, OT and probably intermediate facility. ID CONSULT BLOOD CULTURES Operative procedure: Irrigation and debridement right knee with superficial and deep cultures and retention of hardware 6-18 6-18 hold off on antibiotics until he takes the patient to surgery Postoperatively, she is going to need wound care, PT, OT and probably intermediate facility. ID CONSULT BLOOD CULTURES Operative procedure: Irrigation and debridement right knee with superficial and deep cultures and retention of hardware 6-18 37 min pt exam, chart review, > 50% of time spent with exam, chart review, pt care coordination 6-19 emperic iv antibiotics Postoperatively, she is going to need wound care, PT, OT and probably intermediate facility. ID CONSULT BLOOD CULTURES Operative procedure: Irrigation and debridement right knee with superficial and deep cultures and retention of hardware 6-18 38 min pt exam, chart review, > 50% of time spent with exam, chart review, pt care coordination 6-20 pain improving emperic iv antibiotics Postoperatively, wound care, PT, OT and probably intermediate facility. ID CONSULT BLOOD CULTURES Operative procedure: Irrigation and debridement right knee with superficial and deep cultures and retention of hardware 618 Procedure Result GRAM STAIN Final Final GRAM POS COCCI CLUSTERS:MODERATE RBC:MANY SQUAMOUS EPI CELL:NOT APPLICABLE PMN (WBCs):MANY Unless otherwise specified, Testing Performed by: [address] [address] For Inquires, the Physician may contact the Microbiology department at [phone] ANAEROBIC-AEROBIC CULTURE Preliminary Preliminary MANY [STAPHYLOCOCCUS AUREUS (MRSA)] on 08/29/20 at 1351 STAPHYLOCOCCUS AUREUS (MRSA) ANTIMICROBIAL SUSCEPTIBILITY Preliminary Comment POS JC TYPE 38 STAPHYLOCOCCUS AUREUS (MRSA) ANTIBIOTIC RESULT INTERPRETATION AZITHROMYCIN >4 R CLINDAMYCIN <=0.25 R* CEFOXITIN SCREEN >4 POS CIPROFLOXACIN >2 R CEFTAROLINE 1 S DAPTOMYCIN 1 S ERYTHROMYCIN >4 R GENTAMICIN >8 R INDUCIBLE CLINDAMYCIN >4/0.5 POS LINEZOLID 2 S LEVOFLOXACIN >4 R OXACILLIN >2 R PENICILLIN >2 R* RIFAMPIN <=1 S TRIMETHOPRIM/SULFAMETHOXAZOLE >2/38 R TETRACYCLINE >8 R RUN DATE: 08/30/20 [facility] *LIVE* PAGE 2 RUN TIME: 913 Specimen Inquiry SPEC: [id number] PATIENT: MARIKAYONIS [id number] (Continued) Procedure Result CONTINUED ON NEXT PAGE RUN DATE: 08/30/20 [facility] *LIVE* PAGE 3 RUN TIME: 0914 Specimen Inquiry SPEC: [id number] PATIENT: YONIS HAIRSTON [id number] (Continued) SPEC #: [id number] OFE: 08/27/20 STATUS: RES REQ #: [id number] RECD: 08/28/[address]: JUDIE HUBBARD III, DO SOURCE: LEG ENTR: 08/28/[address]: [facility] De Jesus MD ORDERED: ANAER/AEROB/GS COMMENTS: R LEG SUBCUTANEOUS -------- ---- Procedure Result GRAM STAIN Final Final GRAM POS COCCI CLUSTERS:MODERATE RBC:MODERATE SQUAMOUS EPI CELL:RARE PMN (WBCs):MANY Unless otherwise specified, Testing Performed by: [address] [address] For Inquires, the Physician may contact the Microbiology department at [phone] ANAEROBIC-AEROBIC CULTURE Preliminary Preliminary MANY [STAPHYLOCOCCUS AUREUS (MRSA)] on 08/29/20 at 1351 SEE CULTURE AN663 FOR SUSCEPTIBILITY RESULTS STAPHYLOCOCCUS AUREUS (MRSA) Unless otherwise specified, Testing Performed by: [facility] [address] [place] [address] For Inquires, the Physician may contact the Microbiology department at [phone] --- --------- 36 min pt exam, chart review, > 50% of time spent with exam, chart review, pt care coordination 6-21 pain improving emperic iv antibiotics Postoperatively, wound care, PT, OT and probably intermediate facility. ID CONSULT BLOOD CULTURES Operative procedure: Irrigation and debridement right knee with superficial and deep cultures and retention of hardware 18 Procedure Result GRAM STAIN Final Final GRAM POS COCCI CLUSTERS:MODERATE RBC:MANY SQUAMOUS EPI CELL:NOT APPLICABLE PMN (WBCs):MANY Unless otherwise specified, Testing Performed by: [facility] [address] [place] [address] For Inquires, the Physician may contact the Microbiology department at [phone] ANAEROBIC-AEROBIC CULTURE Preliminary Preliminary MANY [STAPHYLOCOCCUS AUREUS (MRSA)] on 06/19/21 at 1351 STAPHYLOCOCCUS AUREUS (MRSA) ANTIMICROBIAL SUSCEPTIBILITY Preliminary Comment POS JC TYPE 38 STAPHYLOCOCCUS AUREUS (MRSA) ANTIBIOTIC RESULT INTERPRETATION AZITHROMYCIN >4 R CLINDAMYCIN <=0.25 R* CEFOXITIN SCREEN >4 POS CIPROFLOXACIN >2 R CEFTAROLINE 1 S DAPTOMYCIN 1 S ERYTHROMYCIN >4 R GENTAMICIN >8 R INDUCIBLE CLINDAMYCIN >4/0.5 POS LINEZOLID 2 S LEVOFLOXACIN >4 R OXACILLIN >2 R PENICILLIN >2 R* RIFAMPIN <=1 S TRIMETHOPRIM/SULFAMETHOXAZOLE >2/38 R TETRACYCLINE >8 R RUN DATE: 08/30/20 [facility] *LIVE* PAGE 2 RUN TIME: 913 Specimen Inquiry SPEC: [id number] PATIENT: YONIS HAIRSTON [id number] (Continued) ----- ------- Procedure Result CONTINUED ON NEXT PAGE RUN DATE: 08/30/20 [facility] *LIVE* PAGE 3 RUN TIME: 913 Specimen Inquiry SPEC: [id number] PATIENT: YONIS HAIRSTON [id number] (Continued) SPEC #: [id number] OFE: 08/27/20 STATUS: RES REQ #: [id number] RECD: 08/28/[address]: JUDIE HBUBARD III, DO SOURCE: LEG ENTR: 08/28/[address]: YAN RIOS MD [facility]: WOUND PULS,BEVERLY De Jesus MD ORDERED: ANAER/AERERIC/GS COMMENTS: R LEG SUBCUTANEOUS Procedure Result GRAM STAIN Final Final GRAM POS COCCI CLUSTERS:MODERATE RBC:MODERATE SQUAMOUS EPI CELL:RARE PMN (WBCs):MANY Unless otherwise specified, Testing Performed by: [address] [address] For Inquires, the Physician may contact the Microbiology department at [phone] ANAEROBIC-AEROBIC CULTURE Preliminary Preliminary MANY [STAPHYLOCOCCUS AUREUS (MRSA)] on 08/29/20 at 1351 SEE CULTURE AN663 FOR SUSCEPTIBILITY RESULTS STAPHYLOCOCCUS AUREUS (MRSA) Unless otherwise specified, Testing Performed by: [address] [address] For Inquires, the Physician may contact the Microbiology department at [phone] 26 min pt exam, chart review, > 50% of time spent with exam, chart review, pt care coordination Cont Daptomycin higher dose 10mg/kg daily (08/30) and Rifampin ( 08/30). Avoid IV vancomycin due to BERHANE . monitor CK closely Follow up labs and cultures. 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 6 pain improving emperic iv antibiotics Postoperatively, wound care, PT, OT and probably intermediate facility. ID CONSULT BLOOD CULTURES Operative procedure: Irrigation and debridement right knee with superficial and deep cultures and retention of hardware 08-28 Procedure Result GRAM STAIN Final Final GRAM POS COCCI CLUSTERS:MODERATE RBC:MANY SQUAMOUS EPI CELL:NOT APPLICABLE PMN (WBCs):MANY Unless otherwise specified, Testing Performed by: [address] [address] For Inquires, the Physician may contact the Microbiology department at [phone] ANAEROBIC-AEROBIC CULTURE Preliminary Preliminary MANY [STAPHYLOCOCCUS AUREUS (MRSA)] on 08/29/20 at 1351 STAPHYLOCOCCUS AUREUS (MRSA) ANTIMICROBIAL SUSCEPTIBILITY Preliminary Comment POS JC TYPE 38 STAPHYLOCOCCUS AUREUS (MRSA) ANTIBIOTIC RESULT INTERPRETATION AZITHROMYCIN >4 R CLINDAMYCIN <=0.25 R* CEFOXITIN SCREEN >4 POS CIPROFLOXACIN >2 R CEFTAROLINE 1 S DAPTOMYCIN 1 S ERYTHROMYCIN >4 R GENTAMICIN >8 R INDUCIBLE CLINDAMYCIN >4/0.5 POS LINEZOLID 2 S LEVOFLOXACIN >4 R OXACILLIN >2 R PENICILLIN >2 R* RIFAMPIN <=1 S TRIMETHOPRIM/SULFAMETHOXAZOLE >38 R TETRACYCLINE >8 R RUN DATE: 08/30/20 [facility] *LIVE* PAGE 2 RUN TIME: 913 Specimen Inquiry SPEC: [id number] PATIENT: ANA LUISAYONIS CASAS [id number] (Continued) Procedure Result CONTINUED ON NEXT PAGE RUN DATE: 08/30/20 [facility] *LIVE* PAGE 3 RUN TIME: 913 Specimen Inquiry SPEC: [id number] PATIENT: YONIS HAIRSTON [id number] (Continued) SPEC #: [id number] OFE: 08/27/20 STATUS: RES REQ #: [id number] RECD: 08/28/20-[address]: JUDIE HUBBARD III, DO SOURCE: LEG ENTR: 08/28/[address]: YAN RIOS MD [facility]: WOUND BEVERLY SPENCER MD ORDERED: ANAER/CHAI/KARI COMMENTS: R LEG SUBCUTANEOUS Procedure Result GRAM STAIN Final Final GRAM POS COCCI CLUSTERS:MODERATE RBC:MODERATE SQUAMOUS EPI CELL:RARE PMN (WBCs):MANY Unless otherwise specified, Testing Performed by: [address] [address] For Inquires, the Physician may contact the Microbiology department at [phone] ANAEROBIC-AEROBIC CULTURE Preliminary Preliminary MANY [STAPHYLOCOCCUS AUREUS (MRSA)] on 08/29/20 at 1351 SEE CULTURE AN663 FOR SUSCEPTIBILITY RESULTS STAPHYLOCOCCUS AUREUS (MRSA) Unless otherwise specified, Testing Performed by: [address] [address] For Inquires, the Physician may contact the Microbiology department at [phone] 26 min pt exam, chart review, > 50% of time spent with exam, chart review, pt care coordination Cont Daptomycin higher dose 10mg/kg daily (08/30) and Rifampin ( 08/30). Av oid IV vancomycin due to BERHANE . monitor CK closely Follow up labs and cultures. 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 6 pain improving emperic iv antibiotics Postoperatively, wound care, PT, OT and probably intermediate facility. ID CONSULT BLOOD CULTURES Operative procedure: Irrigation and debridement right knee with superficial and deep cultures and retention of hardware 6-18 Procedure Result GRAM STAIN Final Final GRAM POS COCCI CLUSTERS:MODERATE RBC:MANY SQUAMOUS EPI CELL:NOT APPLICABLE PMN (WBCs):MANY Unless otherwise specified, Testing Performed by: [address] [address] For Inquires, the Physician may contact the Microbiology department at [phone] ANAEROBIC-AEROBIC CULTURE Preliminary Preliminary MANY [STAPHYLOCOCCUS AUREUS (MRSA)] on 08/29/20 at 1351 STAPHYLOCOCCUS AUREUS (MRSA) ANTIMICROBIAL SUSCEPTIBILITY Preliminary Comment POS JC TYPE 38 STAPHYLOCOCCUS AUREUS (MRSA) ANTIBIOTIC RESULT INTERPRETATION AZITHROMYCIN >4 R CLINDAMYCIN <=0.25 R* CEFOXITIN SCREEN >4 POS CIPROFLOXACIN >2 R CEFTAROLINE 1 S DAPTOMYCIN 1 S ERYTHROMYCIN >4 R GENTAMICIN >8 R INDUCIBLE CLINDAMYCIN >4/0.5 POS LINEZOLID 2 S LEVOFLOXACIN >4 R OXACILLIN >2 R PENICILLIN >2 R* RIFAMPIN <=1 S TRIMETHOPRIM/SULFAMETHOXAZOLE >2/38 R TETRACYCLINE >8 R -------- ---- RUN DATE: 08/30/20 [facility] *LIVE* PAGE 2 RUN TIME: 913 Specimen Inquiry SPEC: [id number] PATIENT: YONIS HAIRSTON [id number] (Continued) Procedure Result CONTINUED ON NEXT PAGE RUN DATE: 08/30/20 [facility] *LIVE* PAGE 3 RUN TIME: 913 Specimen Inquiry --------- --- SPEC: [id number] PATIENT: YONIS HAIRSTON [id number] (Continued) SPEC #: [id number] OFE: 08/27/20 STATUS: RES REQ #: [id number] RECD: 08/28/20-[address]: JUDIE HUBBARD III, DO SOURCE: LEG ENTR: 08/28/[address]: YAN RIOS MD [facility]: WOUND BEVERLY SPENCER MD ORDERED: SHAHEEN/CHAI/KARI COMMENTS: R LEG SUBCUTANEOUS Procedure Result ------ ------ GRAM STAIN Final Final GRAM POS COCCI CLUSTERS:MODERATE RBC:MODERATE SQUAMOUS EPI CELL:RARE PMN (WBCs):MANY Unless otherwise specified, Testing Performed by: [address] [address] For Inquires, the Physician may contact the Microbiology department at [phone] ANAEROBIC-AEROBIC CULTURE Preliminary Preliminary MANY [STAPHYLOCOCCUS AUREUS (MRSA)] on 08/29/20 at 1351 SEE CULTURE AN663 FOR SUSCEPTIBILITY RESULTS STAPHYLOCOCCUS AUREUS (MRSA) Unless otherwise specified, Testing Performed by: [address] [address] For Inquires, the Physician may contact the Microbiology department at [phone] 36 min pt exam, chart review, > 50% of time spent with exam, chart review, pt care coordination Cont Daptomycin higher dose 10mg/kg daily (08/30) and Rifampin ( 08/30). Avoid IV vancomycin due to BERHANE . monitor CK closely Follow up labs and cultures. 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 further surgical plans per orthopedics if pt is a candidate, . Difficult surgical candidate due to femur implant.... Despite aggressive medical management patient is at high risk of limb loss 6-25 pain improving emperic iv antibiotics Postoperatively, wound care, PT, OT and probably intermediate facility. ID CONSULT BLOOD CULTURES Operative procedure: Irrigation and debridement right knee with superficial and deep cultures and retention of hardware 18 Procedure Result GRAM STAIN Final Final GRAM POS COCCI CLUSTERS:MODERATE RBC:MANY SQUAMOUS EPI CELL:NOT APPLICABLE PMN (WBCs):MANY Unless otherwise specified, Testing Performed by: [address] [address] For Inquires, the Physician may contact the Microbiology department at [phone] ANAEROBIC-AEROBIC CULTURE Preliminary Preliminary MANY [STAPHYLOCOCCUS AUREUS (MRSA)] on 08/29/20 at 1351 STAPHYLOCOCCUS AUREUS (MRSA) ANTIMICROBIAL SUSCEPTIBILITY Preliminary Comment POS JC TYPE 38 STAPHYLOCOCCUS AUREUS (MRSA) ANTIBIOTIC RESULT INTERPRETATION AZITHROMYCIN >4 R CLINDAMYCIN <=0.25 R* CEFOXITIN SCREEN >4 POS CIPROFLOXACIN >2 R CEFTAROLINE 1 S DAPTOMYCIN 1 S ERYTHROMYCIN >4 R GENTAMICIN >8 R INDUCIBLE CLINDAMYCIN >4/0.5 POS LINEZOLID 2 S LEVOFLOXACIN >4 R OXACILLIN >2 R PENICILLIN >2 R* RIFAMPIN <=1 S TRIMETHOPRIM/SULFAMETHOXAZOLE >2/38 R TETRACYCLINE >8 R RUN DATE: 08/30/20 [facility] *LIVE* PAGE 2 RUN TIME: 913 Specimen Inquiry SPEC: [id number] PATIENT: YONIS HAIRSTON [id number] (Continued) Procedure Result CONTINUED ON NEXT PAGE RUN DATE: 08/30/20 [facility] *LIVE* PAGE 3 RUN TIME: 913 Specimen Inquiry SPEC: [id number] PATIENT: YONIS HAIRSTON [id number] (Continued) SPEC #: [id number] OFE: 08/27/20 STATUS: RES REQ #: [id number] RECD: 08/28/[address]: JUDIE HUBBARD III, DO SOURCE: LEG ENTR: 08/28/[address]: YAN RIOS MD [facility]: BEVERLY HAYES MD ORDERED: SHAHEEN/CHAI/KARI COMMENTS: R LEG SUBCUTANEOUS Procedure Result GRAM STAIN Final Final GRAM POS COCCI CLUSTERS:MODERATE RBC:MODERATE SQUAMOUS EPI CELL:RARE PMN (WBCs):MANY Unless otherwise specified, Testing Performed by: [address] [address] For Inquires, the Physician may contact the Microbiology department at [phone] ANAEROBIC-AEROBIC CULTURE Preliminary Preliminary MANY [STAPHYLOCOCCUS AUREUS (MRSA)] on 08/29/20 at 1351 SEE CULTURE AN663 FOR SUSCEPTIBILITY RESULTS STAPHYLOCOCCUS AUREUS (MRSA) Unless otherwise specified, Testing Performed by: [address] [address] For Inquires, the Physician may contact the Microbiology department at [phone] 26 min pt exam, chart review, > 50% of time spent with exam, chart review, pt care coordination Cont Daptomycin higher dose 10mg/kg daily (08/30) and Rifampin ( 08/30). Avoid IV vancomycin due to BERHANE . monitor CK closely Follow up labs and cultures. 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 further surgical plans per orthopedics if pt is a candidate, . Difficult surgical candidate due to femur implant.... Despite aggressive medical management patient is at high risk of limb loss 6-25 pain improving emperic iv antibiotics Postoperatively, wound care, PT, OT and probably intermediate facility. ID CONSULT BLOOD CULTURES Operative procedure: Irrigation and debridement right knee with superficial and deep cultures and retention of hardware 6-18 Procedure Result GRAM STAIN Final Final GRAM POS COCCI CLUSTERS:MODERATE RBC:MANY SQUAMOUS EPI CELL:NOT APPLICABLE PMN (WBCs):MANY Unless otherwise specified, Testing Performed by: [address] [address] For Inquires, the Physician may contact the Microbiology department at [phone] ANAEROBIC-AEROBIC CULTURE Preliminary Preliminary MANY [STAPHYLOCOCCUS AUREUS (MRSA)] on 08/29/20 at 1351 STAPHYLOCOCCUS AUREUS (MRSA) ANTIMICROBIAL SUSCEPTIBILITY Preliminary Comment POS JC TYPE 38 STAPHYLOCOCCUS AUREUS (MRSA) ANTIBIOTIC RESULT INTERPRETATION AZITHROMYCIN >4 R CLINDAMYCIN <=0.25 R* CEFOXITIN SCREEN >4 POS CIPROFLOXACIN >2 R CEFTAROLINE 1 S DAPTOMYCIN 1 S ERYTHROMYCIN >4 R GENTAMICIN >8 R INDUCIBLE CLINDAMYCIN >4/0.5 POS LINEZOLID 2 S LEVOFLOXACIN >4 R OXACILLIN >2 R PENICILLIN >2 R* RIFAMPIN <=1 S TRIMETHOPRIM/SULFAMETHOXAZOLE >2/38 R TETRACYCLINE >8 R RUN DATE: 08/30/20 [facility] *LIVE* PAGE 2 RUN TIME: 913 Specimen Inquiry SPEC: [id number] PATIENT: YONIS HAIRSTON [id number] (Continued) ------- ----- Procedure Result CONTINUED ON NEXT PAGE RUN DATE: 08/30/20 [facility] *LIVE* PAGE 3 RUN TIME: 913 Specimen Inquiry SPEC: [id number] PATIENT: YONIS HAIRSTON [id number] (Continued) SPEC #: [id number] OFE: 08/27/20 STATUS: RES REQ #: [id number] RECD: 08/28/20 [facility] DR: JUDIE HUBBARD III, DO SOURCE: LEG ENTR: 08/28/[address]: YAN RIOS MD [facility]: WOUND PULS,BEVERLY De Jesus MD ORDERED: ANAER/AEROB/GS COMMENTS: R LEG SUBCUTANEOUS Procedure Result GRAM STAIN Final Final GRAM POS COCCI CLUSTERS:MODERATE RBC:MODERATE SQUAMOUS EPI CELL:RARE PMN (WBCs):MANY Unless otherwise specified, Testing Performed by: [address] [address] For Inquires, the Physician may contact the Microbiology department at [phone] ANAEROBIC-AEROBIC CULTURE Preliminary Preliminary MANY [STAPHYLOCOCCUS AUREUS (MRSA)] on 08/29/20 at 1351 SEE CULTURE AN663 FOR SUSCEPTIBILITY RESULTS STAPHYLOCOCCUS AUREUS (MRSA) Unless otherwise specified, Testing Performed by: [address] [address] For Inquires, the Physician may contact the Microbiology department at [phone] 26 min pt exam, chart review, > 50% of time spent with exam, chart review, pt care coordination Cont Daptomycin higher dose 10mg/kg daily (08/30) and Rifampin ( 08/30). Avoid IV vancomycin due to BERHANE . monitor CK closely Follow up labs and cultures. 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 further surgical plans per orthopedics if pt is a candidate, . Difficult surgical candidate due to femur implant.... Despite aggressive medical management patient is at high risk of limb loss family are decided on this could proceed with surgical treatment accordingly and would have to arrange the materials likely with surgery 6- pain improving emperic iv antibiotics Postoperatively, wound care, PT, OT and probably intermediate facility. ID CONSULT BLOOD CULTURES Operative procedure: Irrigation and debridement right knee with superficial and deep cultures and retention of hardware 08-28 Procedure Result GRAM STAIN Final Final GRAM POS COCCI CLUSTERS:MODERATE RBC:MANY SQUAMOUS EPI CELL:NOT APPLICABLE PMN (WBCs):MANY Unless otherwise specified, Testing Performed by: [address] [address] For Inquires, the Physician may contact the Microbiology department at [phone] ANAEROBIC-AEROBIC CULTURE Preliminary Preliminary MANY [STAPHYLOCOCCUS AUREUS (MRSA)] on 08/29/20 at 1351 STAPHYLOCOCCUS AUREUS (MRSA) ANTIMICROBIAL SUSCEPTIBILITY Preliminary Comment POS JC TYPE 38 STAPHYLOCOCCUS AUREUS (MRSA) ANTIBIOTIC RESULT INTERPRETATION AZITHROMYCIN >4 R CLINDAMYCIN <=0.25 R* CEFOXITIN SCREEN >4 POS CIPROFLOXACIN >2 R CEFTAROLINE 1 S DAPTOMYCIN 1 S ERYTHROMYCIN >4 R GENTAMICIN >8 R INDUCIBLE CLINDAMYCIN >4/0.5 POS LINEZOLID 2 S LEVOFLOXACIN >4 R OXACILLIN >2 R PENICILLIN >2 R* RIFAMPIN <=1 S TRIMETHOPRIM/SULFAMETHOXAZOLE >2/38 R TETRACYCLINE >8 R RUN DATE: 08/30/20 [facility] *LIVE* PAGE 2 RUN TIME: 913 Specimen Inquiry SPEC: [id number] PATIENT: YONIS HAIRSTON Francine [id number] (Continued) Procedure Result CONTINUED ON NEXT PAGE RUN DATE: 08/30/20 [facility] *LIVE* PAGE 3 RUN TIME: 0914 Specimen Inquiry SPEC: [id number] PATIENT: MARIKAYONIS [id number] (Continued) SPEC #: [id number] OFE: 08/27/20 STATUS: RES REQ #: [id number] RECD: 08/28/[address]: JUDIE HUBBARD III, DO SOURCE: LEG ENTR: 08/28/[address]: [facility] De Jesus MD ORDERED: ANAER/AEROB/GS COMMENTS: R LEG SUBCUTANEOUS Procedure Result GRAM STAIN Final Final GRAM POS COCCI CLUSTERS:MODERATE RBC:MODERATE SQUAMOUS EPI CELL:RARE PMN (WBCs):MANY Unless otherwise specified, Testing Performed by: [facility] [place] [address] For Inquires, the Physician may contact the Microbiology department at [phone] ANAEROBIC-AEROBIC CULTURE Preliminary Preliminary MANY [STAPHYLOCOCCUS AUREUS (MRSA)] on 08/29/20 at 1351 SEE CULTURE AN663 FOR SUSCEPTIBILITY RESULTS STAPHYLOCOCCUS AUREUS (MRSA) Unless otherwise specified, Testing Performed by: [facility] [address] [place] [address] For Inquires, the Physician may contact the Microbiology department at [phone] 26 min pt exam, chart review, > 50% of time spent with exam, chart review, pt care coordination C 6-27 pain improving emperic iv antibiotics Postoperatively, wound care, PT, OT and probably intermediate facility. ID CONSULT BLOOD CULTURES Operative procedure: Irrigation and debridement right knee with superficial and deep cultures and retention of hardware 6-18 Procedure Result GRAM STAIN Final Final GRAM POS COCCI CLUSTERS:MODERATE RBC:MANY SQUAMOUS EPI CELL:NOT APPLICABLE PMN (WBCs):MANY Unless otherwise specified, Testing Performed by: [facility] [address] [place] [address] For Inquires, the Physician may contact the Microbiology department at [phone] ANAEROBIC-AEROBIC CULTURE Preliminary Preliminary MANY [STAPHYLOCOCCUS AUREUS (MRSA)] on 08/29/20 at 1351 STAPHYLOCOCCUS AUREUS (MRSA) ANTIMICROBIAL SUSCEPTIBILITY Preliminary Comment POS JC TYPE 38 STAPHYLOCOCCUS AUREUS (MRSA) ANTIBIOTIC RESULT INTERPRETATION AZITHROMYCIN >4 R CLINDAMYCIN <=0.25 R* CEFOXITIN SCREEN >4 POS CIPROFLOXACIN >2 R CEFTAROLINE 1 S DAPTOMYCIN 1 S ERYTHROMYCIN >4 R GENTAMICIN >8 R INDUCIBLE CLINDAMYCIN >4/0.5 POS LINEZOLID 2 S LEVOFLOXACIN >4 R OXACILLIN >2 R PENICILLIN >2 R* RIFAMPIN <=1 S TRIMETHOPRIM/SULFAMETHOXAZOLE >2/38 R TETRACYCLINE >8 R - RUN DATE: 08/30/20 [facility] *LIVE* PAGE 2 RUN TIME: 913 Specimen Inquiry - SPEC: [id number] PATIENT: MARIKAYONIS [id number] (Continued) Procedure Result CONTINUED ON NEXT PAGE RUN DATE: 08/30/20 [facility] *LIVE* PAGE 3 RUN TIME: 913 Specimen Inquiry SPEC: [id number] PATIENT: YONIS HAIRSTON [id number] (Continued) SPEC #: [id number] OFE: 08/27/20-2019 STATUS: RES REQ #: [id number] RECD: 08/28/20-[address]: CASTLE,NIAL K III DO SOURCE: LEG ENTR: 08/28/[address]: YAN RIOS MD [facility]: WOUND PULS,BEVERLY De Jesus MD ORDERED: SHAHEEN/CHAI/KARI COMMENTS: R LEG SUBCUTANEOUS Procedure Result --------- --- GRAM STAIN Final Final GRAM POS COCCI CLUSTERS:MODERATE RBC:MODERATE SQUAMOUS EPI CELL:RARE PMN (WBCs):MANY Unless otherwise specified, Testing Performed by: [address] [address] For Inquires, the Physician may contact the Microbiology department at [phone] ANAEROBIC-AEROBIC CULTURE Preliminary Preliminary MANY [STAPHYLOCOCCUS AUREUS (MRSA)] on 08/29/20 at 1351 SEE CULTURE AN663 FOR SUSCEPTIBILITY RESULTS STAPHYLOCOCCUS AUREUS (MRSA) Unless otherwise specified, Testing Performed by: [address] [address] For Inquires, the Physician may contact the Microbiology department at [phone] 36 min pt exam, chart review, > 50% of time spent with exam, chart review, pt care coordination Cont Daptomycin higher dose 10mg/kg daily (08/30) and Rifampin ( 08/30). Avoid IV vancomycin due to BERHANE . monitor CK closely Follow up labs and cultures. 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 further surgical plans per orthopedics if pt is a candidate, . Difficult surgical candidate due to femur implant.... Despite aggressive medical management patient is at high risk of limb loss family are decided on this could proceed with surgical treatment accordingly and would have to arrange the materials likely with surgery Cont Daptomycin 10mg/kg daily (08/30) and Rifampin ( 08/30), rifampin is for [facility] to assist with drug drug interactions for rifampin with other meds 6-27 pain improving emperic iv antibiotics Postoperatively, wound care, PT, OT and probably intermediate facility. ID CONSULT BLOOD CULTURES Operative procedure: Irrigation and debridement right knee with superficial and deep cultures and retention of hardware 18 --- --------- Procedure Result GRAM STAIN Final Final GRAM POS COCCI CLUSTERS:MODERATE RBC:MANY SQUAMOUS EPI CELL:NOT APPLICABLE PMN (WBCs):MANY Unless otherwise specified, Testing Performed by: [address] [id number] For Inquires, the Physician may contact the Microbiology department at [phone] ANAEROBIC-AEROBIC CULTURE Preliminary Preliminary MANY [STAPHYLOCOCCUS AUREUS (MRSA)] on 08/29/20 at 1351 STAPHYLOCOCCUS AUREUS (MRSA) ANTIMICROBIAL SUSCEPTIBILITY Preliminary Comment POS JC TYPE 38 STAPHYLOCOCCUS AUREUS (MRSA) ANTIBIOTIC RESULT INTERPRETATION AZITHROMYCIN >4 R CLINDAMYCIN <=0.25 R* CEFOXITIN SCREEN >4 POS CIPROFLOXACIN >2 R CEFTAROLINE 1 S DAPTOMYCIN 1 S ERYTHROMYCIN >4 R GENTAMICIN >8 R INDUCIBLE CLINDAMYCIN >4/0.5 POS LINEZOLID 2 S LEVOFLOXACIN >4 R OXACILLIN >2 R PENICILLIN >2 R* RIFAMPIN <=1 S TRIMETHOPRIM/SULFAMETHOXAZOLE >2/38 R TETRACYCLINE >8 R ont Daptomycin higher dose 10mg/kg daily (08/30) and Rifampin ( 08/30). Avoid IV vancomycin due to BERHANE . monitor CK closely Follow up labs and cultures. 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 further surgical plans per orthopedics if pt is a candidate, . Difficult surgical candidate due to femur implant.... Despite aggressive medical management patient is at high risk of limb loss History of Present Illness History of Present Illness ADMIT DATE: 08/27/2020 CHIEF COMPLAINT: Right knee swelling, pain, discharge. HISTORY OF PRESENT ILLNESS: The patient is a pleasant 89-year-old female who underwent a right knee replacement with Dr. Rossi on 07/21 last month. She was doing relatively well, but then she fell and refractured the knee. I spoke with Dr. Rossi about the procedure. He had to go back in and put in a complex rotating hinge as she did not have much bone left above the previous knee replacement. Postoperatively, she was sent to [place] for rehabilitation. She was doing relatively well once again, but then started having some drainage. Dr. Rossi requested that she be put on a wound VAC. Apparently, the wound VAC situation was not helping much. Dr. Rossi states that it probably was not put on properly. Nevertheless, the patient came to our ER today with more drainage and some swelling and pain. Dr. Rossi called Dr. Cortes and had him do an arthrocentesis. The patient is now being examined on the medical floor, where she is getting ready to go to surgery here in a few minutes. PAST MEDICAL HISTORY: The above-mentioned complex knee replacement twice; arthritis; GERD; hyperlipidemia; hypertension; thyroid surgery; overactive bladder; partial hysterectomy, right; multiple hernia repairs. ALLERGIES: PREDNISONE AND CARAFATE. FAMILY HISTORY: Diabetes. SOCIAL HISTORY: She does not drink, smoke or take drugs. She is retired; has 3 children, one of her daughters is here, she seems to be a very good support for her. MEDICATIONS: Reviewed. Please refer to the MRAD. REVIEW OF SYSTEMS: GENERAL: No history of weight change, weakness or fevers. SKIN: No bruising, hair changes or rashes. EYES: No blurred, double or loss of vision. NOSE AND THROAT: No history of nosebleeds, hoarseness or sore throat. HEART: No history of palpitations, chest pain or shortness of breath on exertion. LUNGS: Denies cough, hemoptysis, wheezing or shortness of breath. GASTROINTESTINAL: Denies changes in appetite, nausea, vomiting, diarrhea or constipation. GENITOURINARY: No history of frequency, urgency, hesitancy or nocturia. NEUROLOGIC: Denies history of numbness, tingling, tremor or weakness. PSYCHIATRIC: No history of panic, anxiety or depression. ENDOCRINE: No history of heat or cold intolerance, polyuria or polydipsia. EXTREMITIES: She complains of right knee pain. Vitals Vitals Vital Signs Date Time Temp Pulse Resp B/P (MAP) Pulse Ox O2 Delivery O2 Flow Rate FiO2 09/06/20 09:22 97 Room Air 2.0 09/06/20 08:00 98.9 84 18 113/47 (69) 98.9 Physical Exam Physical Exam GENERAL: Alert, oriented x 3, pleasant female, lying in bed comfortably, in no acute distress. HEENT: Normocephalic, atraumatic. Anicteric. NECK: Supple. No JVD. LUNGS: Clear bilaterally. No wheezing. HEART: S1, S2. No gallops or murmurs. ABDOMEN: Soft, obese, nontender, nondistended. EXTREMITIES: Right lower extremity swelling present. Dressing in place not taken down NEUROLOGIC: Alert, oriented x 3, grossly nonfocal. PSYCHIATRIC: Calm and cooperative. DERMATOLOGIC: Warm, dry, no generalized rash. PIV looks clean. General: Alert, Oriented X3, Cooperative, No acute distress Heart: Regular rate Lungs: Clear Abdomen: Normal bowel sounds, Soft Extremities: No cyanosis Labs LABS Laboratory Tests Test 09/06/20 05:50 White Blood Count 11.3 x10^3/uL (4.0-11.0) Red Blood Count 3.03 x10^6/uL (3.50-5.40) Hemoglobin 9.2 g/dL (12.0-15.5) Hematocrit 28.0 % (36.0-47.0) Mean Corpuscular Volume 93 fL (79-100) Mean Corpuscular Hemoglobin 30 pg (25-35) Mean Corpuscular Hemoglobin Concent 33 g/dL (31-37) Red Cell Distribution Width 15.3 % (11.5-14.5) Platelet Count 249 x10^3/uL (140-400) Neutrophils (%) (Auto) 67 % (31-73) Lymphocytes (%) (Auto) 16 % (24-48) Monocytes (%) (Auto) 16 % (0-9) Eosinophils (%) (Auto) 1 % (0-3) Basophils (%) (Auto) 0 % (0-3) Neutrophils # (Auto) 7.6 x10^3/uL (1.8-7.7) Lymphocytes # (Auto) 1.8 x10^3/uL (1.0-4.8) Monocytes # (Auto) 1.8 x10^3/uL (0.0-1.1) Eosinophils # (Auto) 0.1 x10^3/uL (0.0-0.7) Basophils # (Auto) 0.0 x10^3/uL (0.0-0.2) Assessment and Plan Assessmemt and Plan Problems Medical Problems: (1) Cellulitis Status: Acute Comment Review of Relevant I have reviewed the following items fiorella (where applicable) has been applied. Labs Laboratory Tests Test 09/05/20 07:40 09/06/20 05:50 White Blood Count 11.8 x10^3/uL (4.0-11.0) 11.3 x10^3/uL (4.0-11.0) Red Blood Count 3.09 x10^6/uL (3.50-5.40) 3.03 x10^6/uL (3.50-5.40) Hemoglobin 9.4 g/dL (12.0-15.5) 9.2 g/dL (12.0-15.5) Hematocrit 28.6 % (36.0-47.0) 28.0 % (36.0-47.0) Mean Corpuscular Volume 93 fL (79-100) 93 fL (79-100) Mean Corpuscular Hemoglobin 31 pg (25-35) 30 pg (25-35) Mean Corpuscular Hemoglobin Concent 33 g/dL (31-37) 33 g/dL (31-37) Red Cell Distribution Width 15.9 % (11.5-14.5) 15.3 % (11.5-14.5) Platelet Count 274 x10^3/uL (140-400) 249 x10^3/uL (140-400) Neutrophils (%) (Auto) 72 % (31-73) 67 % (31-73) Lymphocytes (%) (Auto) 13 % (24-48) 16 % (24-48) Monocytes (%) (Auto) 15 % (0-9) 16 % (0-9) Eosinophils (%) (Auto) 0 % (0-3) 1 % (0-3) Basophils (%) (Auto) 1 % (0-3) 0 % (0-3) Neutrophils # (Auto) 8.5 x10^3/uL (1.8-7.7) 7.6 x10^3/uL (1.8-7.7) Lymphocytes # (Auto) 1.5 x10^3/uL (1.0-4.8) 1.8 x10^3/uL (1.0-4.8) Monocytes # (Auto) 1.7 x10^3/uL (0.0-1.1) 1.8 x10^3/uL (0.0-1.1) Eosinophils # (Auto) 0.0 x10^3/uL (0.0-0.7) 0.1 x10^3/uL (0.0-0.7) Basophils # (Auto) 0.1 x10^3/uL (0.0-0.2) 0.0 x10^3/uL (0.0-0.2) Segmented Neutrophils % 77 % (35-66) Lymphocytes % 16 % (24-48) Atypical Lymphocytes % (Manual) 1 % (0-0) Monocytes % 6 % (0-10) Platelet Estimate Adequate (ADEQUATE) Large Platelets Few Giant Platelets Occ Polychromasia Slight Hypochromasia Poikilocytosis Slight Anisocytosis Slight [place] Cells Few Schistocytes Occ Sodium Level 140 mmol/L (136-145) Potassium Level 4.1 mmol/L (3.5-5.1) Chloride Level 107 mmol/L (98-107) Carbon Dioxide Level 23 mmol/L (21-32) Anion Gap 10 (6-14) Blood Urea Nitrogen 18 mg/dL (7-20) Creatinine 0.9 mg/dL (0.6-1.0) Estimated GFR (Cockcroft-Gault) 59.0 Glucose Level 87 mg/dL (70-99) Calcium Level 7.2 mg/dL (8.5-10.1) Laboratory Tests Test 09/06/20 05:50 White Blood Count 11.3 x10^3/uL (4.0-11.0) Red Blood Count 3.03 x10^6/uL (3.50-5.40) Hemoglobin 9.2 g/dL (12.0-15.5) Hematocrit 28.0 % (36.0-47.0) Mean Corpuscular Volume 93 fL (79-100) Mean Corpuscular Hemoglobin 30 pg (25-35) Mean Corpuscular Hemoglobin Concent 33 g/dL (31-37) Red Cell Distribution Width 15.3 % (11.5-14.5) Platelet Count 249 x10^3/uL (140-400) Neutrophils (%) (Auto) 67 % (31-73) Lymphocytes (%) (Auto) 16 % (24-48) Monocytes (%) (Auto) 16 % (0-9) Eosinophils (%) (Auto) 1 % (0-3) Basophils (%) (Auto) 0 % (0-3) Neutrophils # (Auto) 7.6 x10^3/uL (1.8-7.7) Lymphocytes # (Auto) 1.8 x10^3/uL (1.0-4.8) Monocytes # (Auto) 1.8 x10^3/uL (0.0-1.1) Eosinophils # (Auto) 0.1 x10^3/uL (0.0-0.7) Basophils # (Auto) 0.0 x10^3/uL (0.0-0.2) Microbiology 08/27/20 Gram Stain - Final, Complete 08/27/20 Aerobic and Anaerobic Culture - Final, Complete 08/27/20 Antimicrobic Susceptibility - Final, Complete 08/27/20 AFB Specimen Processing Tissue - Final, Resulted 08/27/20 Acid Fast Bacilli Culture, Resulted Pending 08/27/20 Gram Stain - Final, Resulted 08/27/20 Fungal Culture, Resulted Pending 08/27/20 Fungal Culture Result 1, Resulted Pending 08/27/20 Blood Culture - Final, Complete NO GROWTH AFTER 5 DAYS Medications Current Medications Vancomycin HCl 1 gm/Sodium Chloride 250 ml @ 166.667 mls/hr 1X ONCE IV ; Start 08/27/20 at 14:00; Stop 08/27/20 at 14:04; Status DC Vancomycin HCl 1.75 gm/Sodium Chloride 500 ml @ 250 mls/hr 1X ONCE IV Last administered on 08/27/20at 15:13; Start 08/27/20 at 14:30; Stop 08/27/20 at 16:29; Status DC Sodium Chloride 1,000 ml @ 1,000 mls/hr 1X ONCE IV Last administered on 08/27/20at 15:12; Start 08/27/20 at 14:15; Stop 08/27/20 at 15:14; Status DC Fentanyl Citrate (Fentanyl 2ml Vial) 25 mcg PRN Q5MIN PRN IVP MILD PAIN 1-3; Start 08/27/20 at 16:30; Stop 08/28/20 at 16:29; Status DC Fentanyl Citrate (Fentanyl 2ml Vial) 50 mcg PRN Q5MIN PRN IVP MODERATE PAIN 4-6 Last administered on 08/27/20at 21:50; Start 08/27/20 at 16:30; Stop 08/28/20 at 16:29; Status DC Morphine Sulfate (Morphine Sulfate) 1 mg PRN Q10MIN PRN IVP SEVERE PAIN 7-10 Last administered on 08/27/20at 22:13; Start 08/27/20 at 16:30; Stop 08/28/20 at 16:29; Status DC Ringer's Solution 1,000 ml @ 30 mls/hr Q24H IV ; Start 08/27/20 at 16:30; Stop 08/28/20 at 04:29; Status DC Hydromorphone HCl (Dilaudid) 0.5 mg PRN Q10MIN PRN IVP SEVERE PAIN 7-10, 2nd CHOICE Last administered on 08/27/20at 22:24; Start 08/27/20 at 16:30; Stop 08/28/20 at 16:29; Status DC Prochlorperazine Edisylate (Compazine) 5 mg PACU PRN PRN IVP NAUSEA, MRX1; Start 08/27/20 at 16:30; Stop 08/28/20 at 16:29; Status DC Propofol (Diprivan) 200 mg STK-MED ONCE IV ; Start 08/27/20 at 19:50; Stop 08/27/20 at 19:51; Status DC Lidocaine HCl (Lidocaine Pf 2% Vial) 5 ml STK-MED ONCE .ROUTE ; Start 08/27/20 at 19:50; Stop 08/27/20 at 19:51; Status DC Fentanyl Citrate (Fentanyl 2ml Vial) 100 mcg STK-MED ONCE .ROUTE ; Start 08/27/20 at 19:58; Stop 08/27/20 at 19:58; Status DC Ondansetron HCl (Zofran) 4 mg STK-MED ONCE .ROUTE ; Start 08/27/20 at 20:36; Stop 08/27/20 at 20:37; Status DC Dexamethasone Sodium Phosphate (Decadron) 4 mg STK-MED ONCE .ROUTE ; Start 08/27/20 at 20:36; Stop 08/27/20 at 20:37; Status DC Phenylephrine HCl (PHENYLEPHRINE in 0.9% NACL PF) 1 mg STK-MED ONCE IV ; Start 08/27/20 at 20:37; Stop 08/27/20 at 20:37; Status DC Sevoflurane (Ultane) 60 ml STK-MED ONCE IH ; Start 08/27/20 at 21:22; Stop 08/27/20 at 21:22; Status DC Fentanyl Citrate (Fentanyl 2ml Vial) 100 mcg STK-MED ONCE .ROUTE ; Start 08/27/20 at 21:45; Stop 08/27/20 at 21:45; Status DC Morphine Sulfate (Morphine Sulfate) 2 mg STK-MED ONCE .ROUTE ; Start 08/27/20 at 22:01; Stop 08/27/20 at 22:01; Status DC Hydromorphone HCl (Dilaudid) 2 mg STK-MED ONCE .ROUTE ; Start 08/27/20 at 22:21; Stop 08/27/20 at 22:21; Status DC Sodium Chloride 1,000 ml @ 75 mls/hr [id number] IV Last administered on 08/30/20at 02:38; Start 08/28/20 at 09:45; Stop 08/30/20 at 15:48; Status DC Daptomycin 410 mg/ Sodium Chloride 50 ml @ 100 mls/hr Q24H IV Last administered on 08/29/20at 13:15; Start 08/28/20 at 12:30; Stop 08/30/20 at 10:11; Status DC Piperacillin Sod/ Tazobactam Sod 3.375 gm/Sodium Chloride 50 ml @ 100 mls/hr Q6HRS IV Last administered on 08/30/20at 05:57; Start 08/28/20 at 12:00; Stop 08/30/20 at 10:11; Status DC Acetaminophen (Tylenol) 1,000 mg PRN BID PRN PO MILD PAIN / TEMP > 100.3'F Last administered on 09/05/20at 00:48; Start 08/28/20 at 14:45; Stop 09/05/20 at 13:21 ; Status DC Docusate Sodium (Colace) 100 mg BID PO Last administered on 09/06/20at 09:22; Start 08/28/20 at 21:00 Levothyroxine Sodium (Synthroid) 88 mcg DAILY07 PO Last administered on 09/06/20at 07:13; Start 08/29/20 at 07:00 Simvastatin (Zocor) 20 mg HS PO Last administered on 09/05/20at 21:13; Start 08/28/20 at 21:00 Tramadol HCl (Ultram) 50 mg PRN Q4HRS PRN PO MODERATE PAIN Last administered on 08/28/20at 15:01; Start 08/28/20 at 14:45 Vitamin D (Vitamin D3) 2,000 unit DAILY PO Last administered on 09/06/20at 09:23; Start 08/29/20 at 09:00 Non-Formulary Medication (Melatonin ) 1 tab QHS PO ; Start 08/28/20 at 21:00; Status UNV Multivitamins (Thera M Plus) 1 tab DAILY PO Last administered on 09/06/20at 09:23; Start 08/29/20 at 09:00 Pantoprazole Sodium (Protonix) 40 mg DAILYAC PO Last administered on 09/06/20at 07:13; Start 08/29/20 at 07:30 Oxybutynin Chloride (Ditropan) 5 mg [id number] PO Last administered on 09/06/20at 09:23; Start 08/28/20 at 21:00 Lactobacillus Rhamnosus (Culturelle) 1 cap BID PO Last administered on 09/06/20at 09:22; Start 08/29/20 at 21:00 Rifampin (Rifadin) 300 mg BID PO Last administered on 09/06/20at 09:22; Start 08/30/20 at 11:00 Daptomycin 550 mg/ Sodium Chloride 50 ml @ 100 mls/hr Q24H IV Last administered on 09/05/20at 12:32; Start 08/30/20 at 12:30 Vancomycin HCl (Vancomycin) 8 gm STK-MED ONCE CEMENT Last administered on 09/04/20at 15:13; Start 09/04/20 at 15:13; Stop 09/04/20 at 19:33; Status DC Tobramycin Sulfate (Tobramycin Powder) 9.6 gm STK-MED ONCE CEMENT Last administ ered on 09/04/20at 15:13; Start 09/04/20 at 15:13; Stop 09/04/20 at 19:33; Status DC Fentanyl Citrate (Fentanyl 2ml Vial) 25 mcg PRN Q5MIN PRN IV PAIN; Start 09/04/20 at 20:00; Stop 09/04/20 at 21:12; Status DC Fentanyl Citrate (Fentanyl 2ml Vial) 50 mcg PRN Q5MIN PRN IV PAIN; Start 09/04/20 at 20:00; Stop 09/04/20 at 21:12; Status DC Morphine Sulfate (Morphine Sulfate) 2 mg PRN Q10MIN PRN IV PAIN; Start 09/04/20 at 20:00; Stop 09/04/20 at 21:12; Status DC Atropine Sulfate (ATROPINE 0.5mg SYRINGE) 0.5 mg PRN 1X PRN IV SEE COMMENTS; Start 09/04/20 at 20:00; Stop 09/05/20 at 19:59; Status DC Naloxone HCl (Narcan) 0.04 mg PRN Q2MIN PRN IV SEE COMMENTS; Start 09/04/20 at 20:00; Stop 09/05/20 at 19:59; Status DC Hydromorphone HCl (Dilaudid) 0.5 mg PRN Q10MIN PRN IVP pain Last administered on 09/04/20at 19:45; Start 09/04/20 at 20:00; Stop 09/04/20 at 21:12; Status DC Ringer's Solution 1,000 ml @ 75 mls/hr [id number] IV Last administered on 09/05/20at 09:05; Start 09/04/20 at 17:00; Stop 09/05/20 at 16:59; Status DC Fentanyl Citrate (Fentanyl 2ml Vial) 25 mcg PRN Q3HRS PRN IVP SEVERE PAIN 7-10 Last administered on 09/06/20at 09:20; Start 09/04/20 at 21:15 Acetaminophen (Tylenol) 650 mg PRN Q4HRS PRN PO MILD PAIN / TEMP > 100.3'F Last administered on 09/06/20at 02:35; Start 09/05/20 at 05:45 Oxycodone/ Acetaminophen (Percocet 5/325) 1 tab PRN Q4HRS PRN PO SEVERE PAIN, 1ST CHOICE Last administered on 09/05/20at 10:24; Start 09/05/20 at 10:30 Oxycodone/ Acetaminophen (Percocet 7.5/ 325) 1 tab PRN Q4HRS PRN PO SEVERE PAIN, 2ND CHOICE Last administered on 09/06/20at 09:22; Start 09/05/20 at 11:15 Active Scripts Active Reported Acetaminophen 500 Mg Tablet 2 Tab PO PRN BID PRN 30 Days Tramadol Hcl 50 Mg Tablet 50 Mg PO Q4HRS PRN Melatonin 5 Mg Tab.rapdis 1 Tab PO QHS 30 Days Colace (Docusate Sodium) 100 Mg Capsule 1 Cap PO BID 30 Days Vesicare (Solifenacin Succinate) 10 Mg Tablet 1 Tab PO DAILY 30 Days Levothyroxine Sodium 88 Mcg Tablet 1 Tab PO DAILY Omeprazole 20 Mg Capsule.dr 1 Cap PO DAILY Vitamin D3 (Cholecalciferol (Vitamin D3)) 2,000 Unit Tablet 2,000 Unit PO DAILY Once Daily (Multivitamin) 1 Each Tablet 1 Each PO DAILY Simvastatin 20 Mg Tablet 20 Mg PO HS Vitals/I & O Vital Sign - Last 24 Hours 09/05/20 09/05/20 09/05/20 09/05/20 11:00 11:08 11:09 11:51 Temp 98.6 98.6 Pulse 87 Resp 18 B/P (MAP) 118/54 (75) Pulse Ox 97 98 98 98 O2 Delivery Nasal Cannula Room Air Room Air Room Air O2 Flow Rate 2.0 2.0 2.0 2.0 09/05/20 09/05/20 09/05/20 09/05/20 14:45 14:46 15:00 18:19 Temp 98.4 98.4 Pulse 89 Resp 18 B/P (MAP) 104/38 (60) Pulse Ox 98 98 97 97 O2 Delivery Room Air Room Air Nasal Cannula Room Air O2 Flow Rate 2.0 2.0 2.0 2.0 09/05/20 09/05/20 09/05/20 09/05/20 18:19 18:29 18:59 19:20 Temp 99.2 99.2 Pulse 91 Resp 18 20 B/P (MAP) 125/46 (72) Pulse Ox 97 97 97 97 O2 Delivery Room Air Room Air Room Air Room Air O2 Flow Rate 2.0 2.0 2.0 09/05/20 09/05/20 09/05/20 09/05/20 20:00 21:13 21:43 23:28 Temp 100.0 100.0 Pulse 60 Resp 18 18 18 B/P (MAP) 123/46 (71) Pulse Ox 97 97 95 O2 Delivery Room Air Room Air Room Air Room Air O2 Flow Rate 2.0 2.0 09/06/20 09/06/20 09/06/20 09/06/20 02:34 02:34 03:04 03:04 Resp 18 18 18 18 Pulse Ox 95 95 95 95 O2 Delivery Room Air Room Air Room Air Room Air O2 Flow Rate 2.0 2.0 2.0 2.0 09/06/20 09/06/20 09/06/20 09/06/20 03:08 08:00 08:00 09:20 Temp 99.7 98.9 99.7 98.9 Pulse 94 84 Resp 18 18 B/P (MAP) 148/57 (87) 113/47 (69) Pulse Ox 95 97 97 O2 Delivery Room Air Room Air Room Air Room Air O2 Flow Rate 2.0 09/06/20 09:22 Pulse Ox 97 O2 Delivery Room Air O2 Flow Rate 2.0 Intake and Output 09/05/20 09/05/20 09/06/20 15:00 23:00 07:00 Intake Total 50 ml 480 ml Output Total 300 ml 1250 ml Balance 50 ml -300 ml -770 ml Nutrition Consultation Dietary Evaluation: Recommendations by RD: Dietary education by RD, Increase Calorie Intake, Protein supplementation Comments: continue Cardiac diet will send kris bid to promote wound healing continue with mvi Expected Outcomes/Goals: to meet >75% est nutr needs improved wound status Malnutrition Findings: Body Fat Depletion (Non Severe: Mild Depletion Weight Status: Overweight Justicifation of Admission Dx: Justifications for Admission: Justification of Admission Dx: N/A SUNSHINE GALEAS MD Sep 06, 2020 10:50
[2020-09-06 11:00] VITALS: BP 104/57
--- NOTE | 2020-09-06 11:02 | PDOC ---
Infectious Disease Note Subjective: Subjective Patient without complaints Postop pain is under control Denies fever, nausea, vomiting, shortness of breath, diarrhea, abdominal pain, rash Otherwise as above Vital Signs: Vital Signs Vital Signs Date Time Temp Pulse Resp B/P (MAP) Pulse Ox O2 Delivery O2 Flow Rate FiO2 09/06/20 09:22 97 Room Air 2.0 09/06/20 08:00 98.9 84 18 113/47 (69) 98.9 Physical Exam: PHYSICAL EXAM GENERAL: Alert, oriented x 3, pleasant female, lying in bed comfortably, in no acute distress. HEENT: Normocephalic, atraumatic. Anicteric. NECK: Supple. No JVD. LUNGS: Clear bilaterally. No wheezing. HEART: S1, S2. No gallops or murmurs. ABDOMEN: Soft, obese, nontender, nondistended. EXTREMITIES: Right lower extremity swelling present. Dressing in place not taken down NEUROLOGIC: Alert, oriented x 3, grossly nonfocal. PSYCHIATRIC: Calm and cooperative. DERMATOLOGIC: Warm, dry, no generalized rash. PIV looks clean. Medications: Inpatient Meds: Medications reviewed. Labs: Lab Laboratory Tests Test 09/06/20 05:50 White Blood Count 11.3 x10^3/uL (4.0-11.0) Red Blood Count 3.03 x10^6/uL (3.50-5.40) Hemoglobin 9.2 g/dL (12.0-15.5) Hematocrit 28.0 % (36.0-47.0) Mean Corpuscular Volume 93 fL (79-100) Mean Corpuscular Hemoglobin 30 pg (25-35) Mean Corpuscular Hemoglobin Concent 33 g/dL (31-37) Red Cell Distribution Width 15.3 % (11.5-14.5) Platelet Count 249 x10^3/uL (140-400) Neutrophils (%) (Auto) 67 % (31-73) Lymphocytes (%) (Auto) 16 % (24-48) Monocytes (%) (Auto) 16 % (0-9) Eosinophils (%) (Auto) 1 % (0-3) Basophils (%) (Auto) 0 % (0-3) Neutrophils # (Auto) 7.6 x10^3/uL (1.8-7.7) Lymphocytes # (Auto) 1.8 x10^3/uL (1.0-4.8) Monocytes # (Auto) 1.8 x10^3/uL (0.0-1.1) Eosinophils # (Auto) 0.1 x10^3/uL (0.0-0.7) Basophils # (Auto) 0.0 x10^3/uL (0.0-0.2) Micro RUN DATE: 08/30/20 [facility] *LIVE* PAGE 1 RUN TIME: 913 Specimen Inquiry PATIENT: YONIS HAIRSTON ACCT: [id number] LOC: [address] [place] [address] U: [id number] AGE/SX: 89/F ROOM: 404 RE08/27/[address]: JUDIE HUBBARD III, DO : 1930 BED: 1 DIS: STATUS: ADM IN TLOC: SPEC #: [id number] OFE: 08/27/20-2019 STATUS: RES REQ #: [id number] RECD: 08/28/[address]: JUDIE HUBBARD III DO SOURCE: KNEE ENTR: 08/28/[address]: YAN RIOS MD [facility]: BEVERLY PERRY MD ORDERED: ANAER/AEROB/GS COMMENTS: R KNEE JOINT FLUID Procedure Result GRAM STAIN Final Final GRAM POS COCCI CLUSTERS:MODERATE RBC:MANY SQUAMOUS EPI CELL:NOT APPLICABLE PMN (WBCs):MANY Unless otherwise specified, Testing Performed by: [address] [address] For Inquires, the Physician may contact the Microbiology department at [phone] ANAEROBIC-AEROBIC CULTURE Preliminary Preliminary MANY [STAPHYLOCOCCUS AUREUS (MRSA)] on 08/29/20 at 1351 STAPHYLOCOCCUS AUREUS (MRSA) ANTIMICROBIAL SUSCEPTIBILITY Preliminary Comment POS JC TYPE 38 STAPHYLOCOCCUS AUREUS (MRSA) ANTIBIOTIC RESULT INTERPRETATION AZITHROMYCIN >4 R CLINDAMYCIN <=0.25 R* CEFOXITIN SCREEN >4 POS CIPROFLOXACIN >2 R CEFTAROLINE 1 S DAPTOMYCIN 1 S ERYTHROMYCIN >4 R GENTAMICIN >8 R INDUCIBLE CLINDAMYCIN >4/0.5 POS LINEZOLID 2 S LEVOFLOXACIN >4 R OXACILLIN >2 R PENICILLIN >2 R* RIFAMPIN <=1 S TRIMETHOPRIM/SULFAMETHOXAZOLE >2/38 R TETRACYCLINE >8 R RUN DATE: 08/30/20 [facility] *LIVE* PAGE 2 RUN TIME: 913 Specimen Inquiry SPEC: [id number] PATIENT: YONIS HAIRSTON [id number] (Continued) Procedure Result CONTINUED ON NEXT PAGE RUN DATE: 08/30/20 [facility] *LIVE* PAGE 3 RUN TIME: 913 Specimen Inquiry SPEC: [id number] PATIENT: YONIS HAIRSTON [id number] (Continued) ----- ------- Procedure Result ANTIMICROBIAL SUSCEPTIBILITY Preliminary (continued) VANCOMYCIN 1 S Unless otherwise specified, Testing Performed by: [facility] [address] [place] [address] For Inquires, the Physician may contact the Microbiology department at [phone] Objective: Assessment: MRSA Complicated RT Knee arthroplasty infection ( R to bactrim and Doxycycline, S to Rifampin) 1.. Right knee postop site drainage,hematoma with infection Status post synovial aspirate on 08/27/2020, WBC 2100, RBC 102,000, 98%PMNs. Cult MRSA 2. MRSA Right knee periprosthetic joint infection. S/P Irrigation and debridement right knee with superficial and deep cultures and retention of hardware Jt Fluid cultures done per DR Rossi + MRSA Subcut tissue cult positive for MRSA 3. Fever resolved 4. 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 5. Supracondylar fracture just above the knee joint 6. Status post removal of the components and placement of distal femoral replacement with a rotating hinge construct for periprosthetic distal femur fracture above well-fixated right total knee arthroplasty, 08/01/2020. 7. 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 8. Degenerative joint disease. 9. Bandemia. 10. Lactic acidosis. 11. Hypertension/hyperlipidemia. 12. History of chronic kidney disease. Pt refused for right above-knee ampuation so underwent salvage therapy with September 04 2020 Right knee infection with distal femoral replacement rotating-hinge knee implant present Underwent Explantation of femoral component and hinge portion, fixation of a distal tibial shaft fracture and placement of an antibiotic rigid spacer Complications noted tibial shaft fracture was noted with attempted removal of tibial component and fixated Knee hardware in place No cultures available from September 04, 2020 Plan: Plan of Care Patient underwent complicated surgery on September 04, 2020 Operative note reviewed Discussed with Dr. Flo Cont Daptomycin 10mg/kg daily (08/30) and Rifampin ( 08/30), [facility] to assist with drug drug interactions for rifampin with other meds Follow up labs and cultures. F/U minocycline susceptibilities to MRSA. Discussed with micro lab PICC line Wound care as directed by Orthopedics. PT and OT as directed Continue supportive care. Overall prognosis poor INES RIOS MD Sep 06, 2020 11:02
[2020-09-06] MEDS: DAPTOmycin (GENERIC) IVPB 550 MG in IV NORMAL SALINE 50ML 50 ML IV SCH (12:23)
[2020-09-06 14:56] VITALS: BP 116/47
[2020-09-06 19:20] VITALS: BP 139/56
[2020-09-06] MEDS: SIMVASTATIN 20 MG TABLET PO SCH (21:05)
[2020-09-06 23:16] VITALS: BP 141/63
[2020-09-07 03:17] VITALS: BP 139/55
[2020-09-07 07:00] VITALS: BP 137/51
[2020-09-07] MEDS: LEVOTHYROXINE 88 MCG TABLET PO SCH (07:24)
[2020-09-07] MEDS: PANTOPRAZOLE 40 MG TABLET.DR. PO SCH (07:24)
[2020-09-07] MEDS: oxyCODONE/APAP 7.5/325 1 TAB TABLET PO PRN ×2 (07:32→17:37)
--- NOTE | 2020-09-07 08:59 | PDOC ---
Infectious Disease Note Subjective Subjective Patient without complaints Postop pain is under control Denies fever, nausea, vomiting, shortness of breath, diarrhea, abdominal pain, rash Otherwise as above Vital Sign Vital Signs Vital Signs Date Time Temp Pulse Resp B/P (MAP) Pulse Ox O2 Delivery O2 Flow Rate FiO2 09/07/20 07:32 95 Room Air 2.0 09/07/20 07:00 97.9 83 18 137/51 (79) 97.9 Physical Exam PHYSICAL EXAM GENERAL: Alert, oriented x 3, pleasant female, lying in bed comfortably, in no acute distress. HEENT: Normocephalic, atraumatic. Anicteric. NECK: Supple. No JVD. LUNGS: Clear bilaterally. No wheezing. HEART: S1, S2. No gallops or murmurs. ABDOMEN: Soft, obese, nontender, nondistended. EXTREMITIES: Right lower extremity swelling present. Dressing in place not taken down NEUROLOGIC: Alert, oriented x 3, grossly nonfocal. PSYCHIATRIC: Calm and cooperative. DERMATOLOGIC: Warm, dry, no generalized rash. PIV looks clean. Labs Lab Laboratory Tests Test 09/07/20 05:20 Creatine Kinase 44 U/L (26-192) Micro GRAM STAIN Final Final GRAM POS COCCI CLUSTERS:MODERATE RBC:MANY SQUAMOUS EPI CELL:NOT APPLICABLE PMN (WBCs):MANY Unless otherwise specified, Testing Performed by: [address] [address] For Inquires, the Physician may contact the Microbiology department at [phone] ANAEROBIC-AEROBIC CULTURE Final Final MANY [STAPHYLOCOCCUS AUREUS (MRSA)] on 08/29/20 at 1351 NO ANAEROBIC ORGANISMS ISOLATED on 09/02/20 at 0828 STAPHYLOCOCCUS AUREUS (MRSA) ANTIMICROBIAL SUSCEPTIBILITY Final Comment POS JC TYPE 38 STAPHYLOCOCCUS AUREUS (MRSA) ANTIBIOTIC RESULT INTERPRETATION AZITHROMYCIN >4 R CLINDAMYCIN <=0.25 R* CEFOXITIN SCREEN >4 POS CIPROFLOXACIN >2 R CEFTAROLINE 1 S DAPTOMYCIN 1 S ERYTHROMYCIN >4 R GENTAMICIN >8 R INDUCIBLE CLINDAMYCIN >4/0.5 POS LINEZOLID 2 S LEVOFLOXACIN >4 R OXACILLIN >2 R PENICILLIN >2 R* RIFAMPIN <=1 S TRIMETHOPRIM/SULFAMETHOXAZOLE >2/38 R RUN DATE: 09/02/20 [facility] *LIVE* PAGE 2 RUN TIME: 0832 Specimen Inquiry SPEC: [id number] PATIENT: YONIS HAIRSTON [id number] (Continued) Procedure Result CONTINUED ON NEXT PAGE RUN DATE: 09/02/20 [facility] *LIVE* PAGE 3 RUN TIME: 0832 Specimen Inquiry SPEC: [id number] PATIENT: YONIS HAIRSTON [id number] (Continued) Procedure Result ANTIMICROBIAL SUSCEPTIBILITY Final (continued) TETRACYCLINE >8 R VANCOMYCIN 1 S Unless otherwise specified, Testing Performed by: [address] [address] For Inquires, the Physician may contact the Microbiology department at [phone] Objective Assessment MRSA Complicated RT Knee arthroplasty infection ( R to bactrim and Doxycycline, S to Rifampin) 1.. Right knee postop site drainage,hematoma with infection Status post synovial aspirate on 08/27/2020, WBC 2100, RBC 102,000, 98%PMNs. Cult MRSA 2. MRSA Right knee periprosthetic joint infection. S/P Irrigation and debridement right knee with superficial and deep cultures and retention of hardware Jt Fluid cultures done per DR Rossi + MRSA Subcut tissue cult positive for MRSA 3. Fever resolved 4. 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 5. Supracondylar fracture just above the knee joint 6. Status post removal of the components and placement of distal femoral replacement with a rotating hinge construct for periprosthetic distal femur fracture above well-fixated right total knee arthroplasty, 08/01/2020. 7. 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 8. Degenerative joint disease. 9. Bandemia. 10. Lactic acidosis. 11. Hypertension/hyperlipidemia. 12. History of chronic kidney disease. Pt refused for right above-knee ampuation so underwent salvage therapy with September 04 2020 Right knee infection with distal femoral replacement rotating-hinge knee implant present Underwent Explantation of femoral component and hinge portion, fixation of a distal tibial shaft fracture and placement of an antibiotic rigid spacer Complications noted tibial shaft fracture was noted with attempted removal of tibial component and fixated Knee hardware in place No cultures available from September 04, 2020 Plan Plan of Care Patient underwent complicated surgery on September 04, 2020 Operative note reviewed Discussed with Dr. Rossi Cont Daptomycin 10mg/kg daily (08/30) and Rifampin ( 08/30), rifampin is for [facility] only Pharmacy to assist with drug drug interactions for rifampin with other meds Follow up labs and cultures. F/U minocycline susceptibilities to MRSA. Discussed with micro lab PICC line Wound care as directed by Orthopedics. PT and OT as directed Continue supportive care. Overall prognosis poor YAN RIOS MD Sep 07, 2020 08:59
[2020-09-07] MEDS: riFAMpin 300 MG CAPSULE. PO SCH ×2 (10:30→21:19)
[2020-09-07] MEDS: CHOLECALCIFEROL (VITAMIN D3) 1,000 UNIT TABLET PO SCH (10:30)
[2020-09-07] MEDS: DOCUSATE SODIUM 100 MG CAPSULE. PO SCH ×2 (10:30→21:19)
[2020-09-07] MEDS: OXYBUTYNIN CHLORIDE 5 MG TABLET PO SCH ×3 (10:30→21:19)
[2020-09-07] MEDS: LACTOBACILLUS RHAMNOSUS GG 1 CAPSULE. PO SCH ×2 (10:30→21:19)
[2020-09-07] MEDS: MULTIVITAMIN with MINERAL TABLET. PO SCH (10:31)
[2020-09-07] MEDS: POLYETHYLENE GLYCOL 3350 17 GM PACKET. PO SCH (10:31)
[2020-09-07 11:00] VITALS: BP 113/50
--- NOTE | 2020-09-07 12:37 | PDOC ---
[facility] [facility] PROGRESS NOTE Date of Service DOS: DATE: 09/07/20 TIME: 12:35 Chief Complaint Chief Complaint ASSESSMENT Right knee swelling and discharge and pain after 2 recent knee replacements. Ms. Hairston is a 89 old female periprosthetic distal femur fracture above well fixated right total knee arthroplasty with minimal bone available for distal fixation. JULY 2020 She had removal of components and placement of a di stal femoral replacement with rotating hinge construct. FEVER T MAX 101.6F 6-17 SEPSIS PLAN ADMIT hold off on antibiotics until he takes the patient to surgery Postoperatively, she is going to need wound care, PT, OT and probably prison facility. ID CONSULT BLOOD CULTURES Operative procedure: Irrigation and debridement right knee with superficial and deep cultures and retention of hardware 6-18 6-18 hold off on antibiotics until he takes the patient to surgery Postoperatively, she is going to need wound care, PT, OT and probably prison facility. ID CONSULT BLOOD CULTURES Operative procedure: Irrigation and debridement right knee with superficial and deep cultures and retention of hardware 6-18 37 min pt exam, chart review, > 50% of time spent with exam, chart review, pt care coordination 6-19 emperic iv antibiotics Postoperatively, she is going to need wound care, PT, OT and probably prison facility. ID CONSULT BLOOD CULTURES Operative procedure: Irrigation and debridement right knee with superficial and deep cultures and retention of hardware 6-18 38 min pt exam, chart review, > 50% of time spent with exam, chart review, pt care coordination 6-20 pain improving emperic iv antibiotics Postoperatively, wound care, PT, OT and probably prison facility. ID CONSULT BLOOD CULTURES Operative procedure: Irrigation and debridement right knee with superficial and deep cultures and retention of hardware 6-18 Procedure Result GRAM STAIN Final Final GRAM POS COCCI CLUSTERS:MODERATE RBC:MANY SQUAMOUS EPI CELL:NOT APPLICABLE PMN (WBCs):MANY Unless otherwise specified, Testing Performed by: [address] [address] For Inquires, the Physician may contact the Microbiology department at [phone] ANAEROBIC-AEROBIC CULTURE Preliminary Preliminary MANY [STAPHYLOCOCCUS AUREUS (MRSA)] on 08/29/20 at 1351 STAPHYLOCOCCUS AUREUS (MRSA) ANTIMICROBIAL SUSCEPTIBILITY Preliminary Comment POS JC TYPE 38 STAPHYLOCOCCUS AUREUS (MRSA) ANTIBIOTIC RESULT INTERPRETATION AZITHROMYCIN >4 R CLINDAMYCIN <=0.25 R* CEFOXITIN SCREEN >4 POS CIPROFLOXACIN >2 R CEFTAROLINE 1 S DAPTOMYCIN 1 S ERYTHROMYCIN >4 R GENTAMICIN >8 R INDUCIBLE CLINDAMYCIN >4/0.5 POS LINEZOLID 2 S LEVOFLOXACIN >4 R OXACILLIN >2 R PENICILLIN >2 R* RIFAMPIN <=1 S TRIMETHOPRIM/SULFAMETHOXAZOLE >2/38 R TETRACYCLINE >8 R RUN DATE: 08/30/20 [facility] *LIVE* PAGE 2 RUN TIME: 913 Specimen Inquiry SPEC: [id number] PATIENT: YONIS HAIRSTON [id number] (Mala saab) Procedure Result CONTINUED ON NEXT PAGE RUN DATE: 08/30/20 [facility] *LIVE* PAGE 3 RUN TIME: 0914 Specimen Inquiry SPEC: [id number] PATIENT: YONIS HAIRSTON [id number] (Continued) - SPEC #: [id number] OFE: 08/27/20 STATUS: RES REQ #: [id number] RECD: 08/28/[address]: JUDIE HUBBARD III, DO SOURCE: LEG ENTR: 08/28/[address]: YAN RIOS MD SPDESC: WOUND PULS,BEVERLY De Jesus MD ORDERED: ANAER/AEROB/GS COMMENTS: R LEG SUBCUTANEOUS Procedure Result GRAM STAIN Final Final GRAM POS COCCI CLUSTERS:MODERATE RBC:MODERATE SQUAMOUS EPI CELL:RARE PMN (WBCs):MANY Unless otherwise specified, Testing Performed by: [address] [address] For Inquires, the Physician may contact the Microbiology department at [phone] ANAEROBIC-AEROBIC CULTURE Preliminary Preliminary MANY [STAPHYLOCOCCUS AUREUS (MRSA)] on 08/29/20 at 1351 SEE CULTURE AN663 FOR SUSCEPTIBILITY RESULTS STAPHYLOCOCCUS AUREUS (MRSA) Unless otherwise specified, Testing Performed by: [address] [address] For Inquires, the Physician may contact the Microbiology department at [phone] 36 min pt exam, chart review, > 50% of time spent with exam, chart review, pt care coordination 6 pain improving emperic iv antibiotics Postoperatively, wound care, PT, OT and probably prison facility. ID CONSULT BLOOD CULTURES Operative procedure: Irrigation and debridement right knee with superficial and deep cultures and retention of hardware 08-28 Procedure Result GRAM STAIN Final Final GRAM POS COCCI CLUSTERS:MODERATE RBC:MANY SQUAMOUS EPI CELL:NOT APPLICABLE PMN (WBCs):MANY Unless otherwise specified, Testing Performed by: [address] [address] For Inquires, the Physician may contact the Microbiology department at [phone] ANAEROBIC-AEROBIC CULTURE Preliminary Preliminary MANY [STAPHYLOCOCCUS AUREUS (MRSA)] on 08/29/20 at 1351 STAPHYLOCOCCUS AUREUS (MRSA) ANTIMICROBIAL SUSCEPTIBILITY Preliminary Comment POS JC TYPE 38 STAPHYLOCOCCUS AUREUS (MRSA) ANTIBIOTIC RESULT INTERPRETATION AZITHROMYCIN >4 R CLINDAMYCIN <=0.25 R* CEFOXITIN SCREEN >4 POS CIPROFLOXACIN >2 R CEFTAROLINE 1 S DAPTOMYCIN 1 S ERYTHROMYCIN >4 R GENTAMICIN >8 R INDUCIBLE CLINDAMYCIN >4/0.5 POS LINEZOLID 2 S LEVOFLOXACIN >4 R OXACILLIN >2 R PENICILLIN >2 R* RIFAMPIN <=1 S TRIMETHOPRIM/SULFAMETHOXAZOLE >2/38 R TETRACYCLINE >8 R RUN DATE: 08/30/20 [facility] *LIVE* PAGE 2 RUN TIME: 913 Specimen Inquiry SPEC: [id number] PATIENT: YONIS HAIRSTON [id number] (Continued) Procedure Result CONTINUED ON NEXT PAGE RUN DATE: 08/30/20 [facility] *LIVE* PAGE 3 RUN TIME: 913 Specimen Inquiry SPEC: [id number] PATIENT: YONIS HAIRSTON [id number] (Mala saab) SPEC #: [id number] OFE: 08/27/20 STATUS: RES REQ #: [id number] RECD: 08/28/[address]: JUDIE HUBBARD III, DO SOURCE: LEG ENTR: 08/28/[address] [facility] [address]: YAN RIOS MD [facility]: WOUND PULS,BEVERLY De Jesus MD ORDERED: ANAER/AEROB/GS COMMENTS: R LEG SUBCUTANEOUS Procedure Result GRAM STAIN Final Final GRAM POS COCCI CLUSTERS:MODERATE RBC:MODERATE SQUAMOUS EPI CELL:RARE PMN (WBCs):MANY Unless otherwise specified, Testing Performed by: [place] [address] For Inquires, the Physician may contact the Microbiology department at [phone] ANAEROBIC-AEROBIC CULTURE Preliminary Preliminary MANY [STAPHYLOCOCCUS AUREUS (MRSA)] on 08/29/20 at 1351 SEE CULTURE AN663 FOR SUSCEPTIBILITY RESULTS STAPHYLOCOCCUS AUREUS (MRSA) Unless otherwise specified, Testing Performed by: [address] [address] For Inquires, the Physician may contact the Microbiology department at [phone] 26 min pt exam, chart review, > 50% of time spent with exam, chart review, pt care coordination Cont Daptomycin higher dose 10mg/kg daily (08/30) and Rifampin ( 08/30). Avoid IV vancomycin due to BERHANE . monitor CK closely Follow up labs and cultures. 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 09-01 pain improving emperic iv antibiotics Postoperatively, wound care, PT, OT and probably prison facility. ID CONSULT BLOOD CULTURES Operative procedure: Irrigation and debridement right knee with superficial and deep cultures and retention of hardware 08-28 Procedure Result GRAM STAIN Final Final GRAM POS COCCI CLUSTERS:MODERATE RBC:MANY SQUAMOUS EPI CELL:NOT APPLICABLE PMN (WBCs):MANY Unless otherwise specified, Testing Performed by: [address] [address] For Inquires, the Physician may contact the Microbiology department at [phone] ANAEROBIC-AEROBIC CULTURE Preliminary Preliminary MANY [STAPHYLOCOCCUS AUREUS (MRSA)] on 08/29/20 at 1351 STAPHYLOCOCCUS AUREUS (MRSA) ANTIMICROBIAL SUSCEPTIBILITY Preliminary Comment POS JC TYPE 38 STAPHYLOCOCCUS AUREUS (MRSA) ANTIBIOTIC RESULT INTERPRETATION AZITHROMYCIN >4 R CLINDAMYCIN <=0.25 R* CEFOXITIN SCREEN >4 POS CIPROFLOXACIN >2 R CEFTAROLINE 1 S DAPTOMYCIN 1 S ERYTHROMYCIN >4 R GENTAMICIN >8 R INDUCIBLE CLINDAMYCIN >4/0.5 POS LINEZOLID 2 S LEVOFLOXACIN >4 R OXACILLIN >2 R PENICILLIN >2 R* RIFAMPIN <=1 S TRIMETHOPRIM/SULFAMETHOXAZOLE >2/38 R TETRACYCLINE >8 R RUN DATE: 08/30/20 [facility] *LIVE* PAGE 2 RUN TIME: 913 Specimen Inquiry SPEC: [id number] PATIENT: YONIS HAIRSTON [id number] (Continued) Procedure Result CONTINUED ON NEXT PAGE RUN DATE: 08/30/20 [facility] *LIVE* PAGE 3 RUN TIME: 913 Specimen Inquiry SPEC: [id number] PATIENT: YONIS HAIRSTON [id number] (Continued) SPEC #: [id number] OFE: 08/27/20-2019 STATUS: RES REQ #: [id number] RECD: 08/28/20-[address]: JUDIE HUBBARD III, DO SOURCE: LEG ENTR: 08/28/20-[address]: YAN RIOS MD SPDESC: WOUND PULSBEVERLY MD ORDERED: ANAER/AEROB/GS COMMENTS: R LEG SUBCUTANEOUS ------ ------ Procedure Result GRAM STAIN Final Final GRAM POS COCCI CLUSTERS:MODERATE RBC:MODERATE SQUAMOUS EPI CELL:RARE PMN (WBCs):MANY Unless otherwise specified, Testing Performed by: [address] [address] For Inquires, the Physician may contact the Microbiology department at [phone] ANAEROBIC-AEROBIC CULTURE Preliminary Preliminary MANY [STAPHYLOCOCCUS AUREUS (MRSA)] on 08/29/20 at 1351 SEE CULTURE AN663 FOR SUSCEPTIBILITY RESULTS STAPHYLOCOCCUS AUREUS (MRSA) Unless otherwise specified, Testing Performed by: [address] [address] For Inquires, the Physician may contact the Microbiology department at [phone] - 26 min pt exam, chart review, > 50% of time spent with exam, chart review, pt care coordination Cont Daptomycin higher dose 10mg/kg daily (08/30) and Rifampin ( 08/30). Avoid IV vancomycin due to BERHANE . monitor CK closely Follow up labs and cultures. 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 6 pain improving emperic iv antibiotics Postoperatively, wound care, PT, OT and probably prison facility. ID CONSULT BLOOD CULTURES Operative procedure: Irrigation and debridement right knee with superficial and deep cultures and retention of hardware 6-18 Procedure Result GRAM STAIN Final Final GRAM POS COCCI CLUSTERS:MODERATE RBC:MANY SQUAMOUS EPI CELL:NOT APPLICABLE PMN (WBCs):MANY Unless otherwise specified, Testing Performed by: [address] [address] For Inquires, the Physician may contact the Microbiology department at [phone] ANAEROBIC-AEROBIC CULTURE Preliminary Preliminary MANY [STAPHYLOCOCCUS AUREUS (MRSA)] on 08/29/20 at 1351 STAPHYLOCOCCUS AUREUS (MRSA) ANTIMICROBIAL SUSCEPTIBILITY Preliminary Comment POS JC TYPE 38 STAPHYLOCOCCUS AUREUS (MRSA) ANTIBIOTIC RESULT INTERPRETATION AZITHROMYCIN >4 R CLINDAMYCIN <=0.25 R* CEFOXITIN SCREEN >4 POS CIPROFLOXACIN >2 R CEFTAROLINE 1 S DAPTOMYCIN 1 S ERYTHROMYCIN >4 R GENTAMICIN >8 R INDUCIBLE CLINDAMYCIN >4/0.5 POS LINEZOLID 2 S LEVOFLOXACIN >4 R OXACILLIN >2 R PENICILLIN >2 R* RIFAMPIN <=1 S TRIMETHOPRIM/SULFAMETHOXAZOLE >2/38 R TETRACYCLINE >8 R RUN DATE: 08/30/20 [facility] *LIVE* PAGE 2 RUN TIME: 913 Specimen Inquiry SPEC: [id number] PATIENT: YONIS HAIRSTON [id number] (Continued) Procedure Result CONTINUED ON NEXT PAGE RUN DATE: 08/30/20 [facility] *LIVE* PAGE 3 RUN TIME: 913 Specimen Inquiry SPEC: [id number] PATIENT: YONIS HAIRSTON [id number] (Continued) SPEC #: [id number] OFE: 08/27/20 STATUS: RES REQ #: [id number] RECD: 08/28/[address]: JUDIE HUBBARD III, DO SOURCE: LEG ENTR: 08/28/[address]: YAN RIOS MD SPDC: WOUND BEVERLY SPENCER MD ORDERED: SHAHEEN/CHAI/KARI COMMENTS: R LEG SUBCUTANEOUS Procedure Result GRAM STAIN Final Final GRAM POS COCCI CLUSTERS:MODERATE RBC:MODERATE SQUAMOUS EPI CELL:RARE PMN (WBCs):MANY Unless otherwise specified, Testing Performed by: [address] [address] For Inquires, the Physician may contact the Microbiology department at [phone] ANAEROBIC-AEROBIC CULTURE Preliminary Preliminary MANY [STAPHYLOCOCCUS AUREUS (MRSA)] on 08/29/20 at 1351 SEE CULTURE AN663 FOR SUSCEPTIBILITY RESULTS STAPHYLOCOCCUS AUREUS (MRSA) Unless otherwise specified, Testing Performed by: [address] [address] For Inquires, the Physician may contact the Microbiology department at [phone] 36 min pt exam, chart review, > 50% of time spent with exam, chart review, pt care coordination Cont Daptomycin higher dose 10mg/kg daily (08/30) and Rifampin ( 08/30). Avoid IV vancomycin due to BERHANE . monitor CK closely Follow up labs and cultures. 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 further surgical plans per orthopedics if pt is a candidate, . Difficult surgical candidate due to femur implant.... Despite aggressive medical management patient is at high risk of limb loss 6-25 pain improving emperic iv antibiotics Postoperatively, wound care, PT, OT and probably prison facility. ID CONSULT BLOOD CULTURES Operative procedure: Irrigation and debridement right knee with superficial and deep cultures and retention of hardware 6-18 Procedure Result GRAM STAIN Final Final GRAM POS COCCI CLUSTERS:MODERATE RBC:MANY SQUAMOUS EPI CELL:NOT APPLICABLE PMN (WBCs):MANY Unless otherwise specified, Testing Performed by: [address] [address] For Inquires, the Physician may contact the Microbiology department at [phone] ANAEROBIC-AEROBIC CULTURE Preliminary Preliminary MANY [STAPHYLOCOCCUS AUREUS (MRSA)] on 08/29/20 at 1351 STAPHYLOCOCCUS AUREUS (MRSA) ANTIMICROBIAL SUSCEPTIBILITY Preliminary Comment POS JC TYPE 38 STAPHYLOCOCCUS AUREUS (MRSA) ANTIBIOTIC RESULT INTERPRETATION AZITHROMYCIN >4 R CLINDAMYCIN <=0.25 R* CEFOXITIN SCREEN >4 POS CIPROFLOXACIN >2 R CEFTAROLINE 1 S DAPTOMYCIN 1 S ERYTHROMYCIN >4 R GENTAMICIN >8 R INDUCIBLE CLINDAMYCIN >4/0.5 POS LINEZOLID 2 S LEVOFLOXACIN >4 R OXACILLIN >2 R PENICILLIN >2 R* RIFAMPIN <=1 S TRIMETHOPRIM/SULFAMETHOXAZOLE >2/38 R TETRACYCLINE >8 R RUN DATE: 08/30/20 [facility] *LIVE* PAGE 2 RUN TIME: 09 Specimen Inquiry SPEC: [id number] PATIENT: YONIS HAIRSTON [id number] (Continued) - Procedure Result CONTINUED ON NEXT PAGE RUN DATE: 08/30/20 [facility] *LIVE* PAGE 3 RUN TIME: 913 Specimen Inquiry SPEC: [id number] PATIENT: YONIS HAIRSTON [id number] (Continued) SPEC #: [id number] OFE: 08/27/20 STATUS: RES REQ #: [id number] RECD: 08/28/[address]: JUDIE HUBBARD III, DO SOURCE: LEG ENTR: 08/28/[address]: YAN RIOS MD [facility]: WOUND BEVERLY SPENCER MD ORDERED: SHAHEEN/CHAI/KARI COMMENTS: R LEG SUBCUTANEOUS --- --------- Procedure Result GRAM STAIN Final Final GRAM POS COCCI CLUSTERS:MODERATE RBC:MODERATE SQUAMOUS EPI CELL:RARE PMN (WBCs):MANY Unless otherwise specified, Testing Performed by: [address] [address] For Inquires, the Physician may contact the Microbiology department at [phone] ANAEROBIC-AEROBIC CULTURE Preliminary Preliminary MANY [STAPHYLOCOCCUS AUREUS (MRSA)] on 08/29/20 at 1351 SEE CULTURE AN663 FOR SUSCEPTIBILITY RESULTS STAPHYLOCOCCUS AUREUS (MRSA) Unless otherwise specified, Testing Performed by: [address] [address] For Inquires, the Physician may contact the Microbiology department at [phone] 26 min pt exam, chart review, > 50% of time spent with exam, chart review, pt care coordination Cont Daptomycin higher dose 10mg/kg daily (08/30) and Rifampin ( 08/30). Avoid IV vancomycin due to BERHANE . monitor CK closely Follow up labs and cultures. 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 further surgical plans per orthopedics if pt is a candidate, . Difficult surgical candidate due to femur implant.... Despite aggressive medical management patient is at high risk of limb loss 6-25 pain improving emperic iv antibiotics Postoperatively, wound care, PT, OT and probably prison facility. ID CONSULT BLOOD CULTURES Operative procedure: Irrigation and debridement right knee with superficial and deep cultures and retention of hardware 6-18 Procedure Result GRAM STAIN Final Final GRAM POS COCCI CLUSTERS:MODERATE RBC:MANY SQUAMOUS EPI CELL:NOT APPLICABLE PMN (WBCs):MANY Unless otherwise specified, Testing Performed by: [address] [address] For Inquires, the Physician may contact the Microbiology department at [phone] ANAEROBIC-AEROBIC CULTURE Preliminary Preliminary MANY [STAPHYLOCOCCUS AUREUS (MRSA)] on 08/29/20 at 1351 STAPHYLOCOCCUS AUREUS (MRSA) ANTIMICROBIAL SUSCEPTIBILITY Preliminary Comment POS JC TYPE 38 STAPHYLOCOCCUS AUREUS (MRSA) ANTIBIOTIC RESULT INTERPRETATION AZITHROMYCIN >4 R CLINDAMYCIN <=0.25 R* CEFOXITIN SCREEN >4 POS CIPROFLOXACIN >2 R CEFTAROLINE 1 S DAPTOMYCIN 1 S ERYTHROMYCIN >4 R GENTAMICIN >8 R INDUCIBLE CLINDAMYCIN >4/0.5 POS LINEZOLID 2 S LEVOFLOXACIN >4 R OXACILLIN >2 R PENICILLIN >2 R* RIFAMPIN <=1 S TRIMETHOPRIM/SULFAMETHOXAZOLE >2/38 R TETRACYCLINE >8 R RUN DATE: 08/30/20 [facility] *LIVE* PAGE 2 RUN TIME: 913 Specimen Inquiry SPEC: [id number] PATIENT: YONIS HAIRSTON [id number] (Continued) Procedure Result CONTINUED ON NEXT PAGE RUN DATE: 08/30/20 [facility] *LIVE* PAGE 3 RUN TIME: 913 Specimen Inquiry SPEC: [id number] PATIENT: YONIS HAIRSTON [id number] (Continued) SPEC #: [id number] OFE: 08/27/20 STATUS: RES REQ #: [id number] RECD: 08/28/[address]: JUDIE HUBBARD III, DO SOURCE: LEG ENTR: 08/28/[address]: YAN RIOS MD [facility]: WOUND PULS,BEVERLY De Jesus MD ORDERED: ANAER/AEROB/GS COMMENTS: R LEG SUBCUTANEOUS Procedure Result GRAM STAIN Final Final GRAM POS COCCI CLUSTERS:MODERATE RBC:MODERATE SQUAMOUS EPI CELL:RARE PMN (WBCs):MANY Unless otherwise specified, Testing Performed by: [address] [address] For Inquires, the Physician may contact the Microbiology department at [phone] ANAEROBIC-AEROBIC CULTURE Preliminary Preliminary MANY [STAPHYLOCOCCUS AUREUS (MRSA)] on 08/29/20 at 1351 SEE CULTURE AN663 FOR SUSCEPTIBILITY RESULTS STAPHYLOCOCCUS AUREUS (MRSA) Unless otherwise specified, Testing Performed by: [address] [address] For Inquires, the Physician may contact the Microbiology department at [phone] 26 min pt exam, chart review, > 50% of time spent with exam, chart review, pt care coordination Cont Daptomycin higher dose 10mg/kg daily (08/30) and Rifampin ( 08/30). Avoid IV vancomycin due to BERHANE . monitor CK closely Follow up labs and cultures. 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 further surgical plans per orthopedics if pt is a candidate, . Difficult surgical candidate due to femur implant.... Despite aggressive medical management patient is at high risk of limb loss family are decided on this could proceed with surgical treatment accordingly and would have to arrange the materials likely with surgery 6-25 pain improving emperic iv antibiotics Postoperatively, wound care, PT, OT and probably prison facility. ID CONSULT BLOOD CULTURES Operative procedure: Irrigation and debridement right knee with superficial and deep cultures and retention of hardware 08-28 Procedure Result GRAM STAIN Final Final GRAM POS COCCI CLUSTERS:MODERATE RBC:MANY SQUAMOUS EPI CELL:NOT APPLICABLE PMN (WBCs):MANY Unless otherwise specified, Testing Performed by: [address] [address] For Inquires, the Physician may contact the Microbiology department at [phone] ANAEROBIC-AEROBIC CULTURE Preliminary Preliminary MANY [STAPHYLOCOCCUS AUREUS (MRSA)] on 08/29/20 at 1351 STAPHYLOCOCCUS AUREUS (MRSA) ANTIMICROBIAL SUSCEPTIBILITY Preliminary Comment POS CJ TYPE 38 STAPHYLOCOCCUS AUREUS (MRSA) ANTIBIOTIC RESULT INTERPRETATION AZITHROMYCIN >4 R CLINDAMYCIN <=0.25 R* CEFOXITIN SCREEN >4 POS CIPROFLOXACIN >2 R CEFTAROLINE 1 S DAPTOMYCIN 1 S ERYTHROMYCIN >4 R GENTAMICIN >8 R INDUCIBLE CLINDAMYCIN >4/0.5 POS LINEZOLID 2 S LEVOFLOXACIN >4 R OXACILLIN >2 R PENICILLIN >2 R* RIFAMPIN <=1 S TRIMETHOPRIM/SULFAMETHOXAZOLE >2/38 R TETRACYCLINE >8 R RUN DATE: 08/30/20 [facility] *LIVE* PAGE 2 RUN TIME: 913 Specimen Inquiry SPEC: [id number] PATIENT: YONIS HAIRSTON [id number] (Continued) Procedure Result CONTINUED ON NEXT PAGE - RUN DATE: 08/30/20 [facility] *LIVE* PAGE 3 RUN TIME: 0914 Specimen Inquiry - SPEC: [id number] PATIENT: YONIS HAIRSTON [id number] (Continued) SPEC #: [id number] OFE: 08/27/20 STATUS: RES REQ #: [id number] RECD: 08/28/[address]: JUDIE HUBBARD III, DO SOURCE: LEG ENTR: 08/28/[address] [facility] DR: YAN RIOS MD SPDESC: WOUND PULS,BEVERLY De Jesus MD ORDERED: ANAER/AEROB/GS COMMENTS: R LEG SUBCUTANEOUS Procedure Result GRAM STAIN Final Final GRAM POS COCCI CLUSTERS:MODERATE RBC:MODERATE SQUAMOUS EPI CELL:RARE PMN (WBCs):MANY Unless otherwise specified, Testing Performed by: [address] [place] [address] For Inquires, the Physician may contact the Microbiology department at [phone] ANAEROBIC-AEROBIC CULTURE Preliminary Preliminary MANY [STAPHYLOCOCCUS AUREUS (MRSA)] on 08/29/20 at 1351 SEE CULTURE AN663 FOR SUSCEPTIBILITY RESULTS STAPHYLOCOCCUS AUREUS (MRSA) Unless otherwise specified, Testing Performed by: [facility] [address] [place] [address] For Inquires, the Physician may contact the Microbiology department at [phone] 26 min pt exam, chart review, > 50% of time spent with exam, chart review, pt care coordination C 6-27 pain improving emperic iv antibiotics Postoperatively, wound care, PT, OT and probably prison facility. ID CONSULT BLOOD CULTURES Operative procedure: Irrigation and debridement right knee with superficial and deep cultures and retention of hardware 6-18 Procedure Result - GRAM STAIN Final Final GRAM POS COCCI CLUSTERS:MODERATE RBC:MANY SQUAMOUS EPI CELL:NOT APPLICABLE PMN (WBCs):MANY Unless otherwise specified, Testing Performed by: [facility] [address] [place] [address] For Inquires, the Physician may contact the Microbiology department at [phone] ANAEROBIC-AEROBIC CULTURE Preliminary Preliminary MANY [STAPHYLOCOCCUS AUREUS (MRSA)] on 08/29/20 at 1351 STAPHYLOCOCCUS AUREUS (MRSA) ANTIMICROBIAL SUSCEPTIBILITY Preliminary Comment POS JC TYPE 38 STAPHYLOCOCCUS AUREUS (MRSA) ANTIBIOTIC RESULT INTERPRETATION AZITHROMYCIN >4 R CLINDAMYCIN <=0.25 R* CEFOXITIN SCREEN >4 POS CIPROFLOXACIN >2 R CEFTAROLINE 1 S DAPTOMYCIN 1 S ERYTHROMYCIN >4 R GENTAMICIN >8 R INDUCIBLE CLINDAMYCIN >4/0.5 POS LINEZOLID 2 S LEVOFLOXACIN >4 R OXACILLIN >2 R PENICILLIN >2 R* RIFAMPIN <=1 S TRIMETHOPRIM/SULFAMETHOXAZOLE >2/38 R TETRACYCLINE >8 R RUN DATE: 08/30/20 [facility] *LIVE* PAGE 2 RUN TIME: 913 Specimen Inquiry SPEC: [id number] PATIENT: YONIS HAIRSTON Francine [id number] (Continued) Procedure Result CONTINUED ON NEXT PAGE RUN DATE: 08/30/20 [facility] *LIVE* PAGE 3 RUN TIME: 913 Specimen Inquiry SPEC: [id number] PATIENT: YONIS HAIRSTON [id number] (Continued) SPEC #: [id number] OFE: 08/27/20-2019 STATUS: RES REQ #: [id number] RECD: 08/28/20-[address]: JUDIE HUBBARD III DO SOURCE: LEG ENTR: 08/28/20-[address]: YAN RIOS MD [facility]: WOUND JOHANNA,BEVERLY De Jesus MD ORDERED: SHAHEEN/CHAI/KARI COMMENTS: R LEG SUBCUTANEOUS Procedure Result GRAM STAIN Final Final GRAM POS COCCI CLUSTERS:MODERATE RBC:MODERATE SQUAMOUS EPI CELL:RARE PMN (WBCs):MANY Unless otherwise specified, Testing Performed by: [place] [address] For Inquires, the Physician may contact the Microbiology department at [phone] ANAEROBIC-AEROBIC CULTURE Preliminary Preliminary MANY [STAPHYLOCOCCUS AUREUS (MRSA)] on 08/29/20 at 1351 SEE CULTURE AN663 FOR SUSCEPTIBILITY RESULTS STAPHYLOCOCCUS AUREUS (MRSA) Unless otherwise specified, Testing Performed by: [address] [address] For Inquires, the Physician may contact the Microbiology department at [phone] 36 min pt exam, chart review, > 50% of time spent with exam, chart review, pt care coordination Cont Daptomycin higher dose 10mg/kg daily (08/30) and Rifampin ( 08/30). Avoid IV vancomycin due to BERHANE . monitor CK closely Follow up labs and cultures. 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 further surgical plans per orthopedics if pt is a candidate, . Difficult surgical candidate due to femur implant.... Despite aggressive medical management patient is at high risk of limb loss family are decided on this could proceed with surgical treatment accordingly and would have to arrange the materials likely with surgery Cont Daptomycin 10mg/kg daily (08/30) and Rifampin ( 08/30), rifampin is for [facility] to assist with drug drug interactions for rifampin with other meds 6-27 pain improving emperic iv antibiotics Postoperatively, wound care, PT, OT and probably prison facility. ID CONSULT BLOOD CULTURES Operative procedure: Irrigation and debridement right knee with superficial and deep cultures and retention of hardware 618 Procedure Result GRAM STAIN Final Final GRAM POS COCCI CLUSTERS:MODERATE RBC:MANY SQUAMOUS EPI CELL:NOT APPLICABLE PMN (WBCs):MANY Unless otherwise specified, Testing Performed by: [address] [address] For Inquires, the Physician may contact the Microbiology department at [phone] ANAEROBIC-AEROBIC CULTURE Preliminary Preliminary MANY [STAPHYLOCOCCUS AUREUS (MRSA)] on 08/29/20 at 1351 STAPHYLOCOCCUS AUREUS (MRSA) ANTIMICROBIAL SUSCEPTIBILITY Preliminary Comment POS JC TYPE 38 STAPHYLOCOCCUS AUREUS (MRSA) ANTIBIOTIC RESULT INTERPRETATION AZITHROMYCIN >4 R CLINDAMYCIN <=0.25 R* CEFOXITIN SCREEN >4 POS CIPROFLOXACIN >2 R CEFTAROLINE 1 S DAPTOMYCIN 1 S ERYTHROMYCIN >4 R GENTAMICIN >8 R INDUCIBLE CLINDAMYCIN >4/0.5 POS LINEZOLID 2 S LEVOFLOXACIN >4 R OXACILLIN >2 R PENICILLIN >2 R* RIFAMPIN <=1 S TRIMETHOPRIM/SULFAMETHOXAZOLE >2/38 R TETRACYCLINE >8 R ont Daptomycin higher dose 10mg/kg daily (08/30) and Rifampin ( 08/30). Avoid IV vancomycin due to BERHANE . monitor CK closely Follow up labs and cultures. 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 further surgical plans per orthopedics if pt is a candidate, . Difficult surgical candidate due to femur implant.... Despite aggressive medical management patient is at high risk of limb loss History of Present Illness History of Present Illness 09/07, abx reviewed, cont Dapto, discussed wth ID Vasc following, may need angio PICC to be placed today, plan to send to acute rehab soon GENERAL: No history of weight change, weakness or fevers. SKIN: No bruising, hair changes or rashes. EYES: No blurred, double or loss of vision. NOSE AND THROAT: No history of nosebleeds, hoarseness or sore throat. HEART: No history of palpitations, chest pain or shortness of breath on exertion. LUNGS: Denies cough, hemoptysis, wheezing or shortness of breath. GASTROINTESTINAL: Denies changes in appetite, nausea, vomiting, diarrhea or constipation. GENITOURINARY: No history of frequency, urgency, hesitancy or nocturia. NEUROLOGIC: Denies history of numbness, tingling, tremor or weakness. PSYCHIATRIC: No history of panic, anxiety or depression. ENDOCRINE: No history of heat or cold intolerance, polyuria or polydipsia. EXTREMITIES: She complains of right knee pain. Vitals/I&O Vitals/I&O: Vital Signs Date Time Temp Pulse Resp B/P (MAP) Pulse Ox O2 Delivery O2 Flow Rate FiO2 09/07/20 11:00 97.9 74 18 113/50 (71) 97 Room Air 97.9 09/07/20 08:54 2.0 I & O 09/06/20 09/06/20 09/07/20 15:00 23:00 07:00 Intake Total 410 ml 240 ml 240 ml Output Total 500 ml 300 ml Balance -90 ml -60 ml 240 ml Physical Exam Physical Exam: GENERAL: Alert, oriented x 3, pleasant female, lying in bed comfortably, in no acute distress. HEENT: Normocephalic, atraumatic. Anicteric. NECK: Supple. No JVD. LUNGS: Clear bilaterally. No wheezing. HEART: S1, S2. No gallops or murmurs. ABDOMEN: Soft, obese, nontender, nondistended. EXTREMITIES: Right lower extremity swelling present. Dressing in place not taken down NEUROLOGIC: Alert, oriented x 3, grossly nonfocal. PSYCHIATRIC: Calm and cooperative. DERMATOLOGIC: Warm, dry, no generalized rash. PIV looks clean. General: Alert, Oriented X3, Cooperative, No acute distress Heart: Regular rate Lungs: Clear Abdomen: Normal bowel sounds, Soft Extremities: No cyanosis Labs Labs: Laboratory Tests Test 09/07/20 05:20 Creatine Kinase 44 U/L (26-192) Assessment and Plan Assessmemt and Plan Problems Medical Problems: (1) Cellulitis Status: Acute Comment Review of Relevant I have reviewed the following items fiorella (where applicable) has been applied. Medications: Current Medications Medications (Trade) Dose Ordered Sig/Candi Route PRN Reason Start Time Stop Time Status Last Admin Dose Admin Polyethylene Glycol (miraLAX PACKET) 17 gm DAILY PO 09/07/20 10:00 09/07/20 10:31 Justifications for Admission Other Justification LOLI VILLEGAS MD Sep 07, 2020 12:36
--- NOTE | 2020-09-07 12:49 | RAD ---
Date: 09/07/2020 Exam: Fluoroscopic and ultrasound guided peripheral central venous catheter placement. Indication: Consent: The procedure was explained in its entirety to the patient or the patients designated repres entative by a member of the treatment team, including a discussion of the risks, benefits and commonl y accepted alternatives to the procedure, as well as the expected consequences of no therapy whatsoev er. Discussion of the risks included, but was not limited to, those that are most frequent and thos e that are rare but possibly severe or life-threatening, as well as the possibility of unforeseen com plications. Discussion: A timeout procedure was performed. The patient was prepped and draped using maximum sterile techniq ue, including the use of: Current guideline approved cutaneous antisepsis, a large sterile sheet to e stablish a sterile field. Additionally the sling operator wore a hat, mask, sterile gloves, a sterile gown during the procedure as well as practiced acceptable hand hygiene prior to placing the line. 1% lidoc julieta was administered for local anesthesia. Ultrasound evaluation demonstrates a patent right basilic vein. Reference images were saved in the edical record. The selected vein was accessed using micropuncture technique. A guidewire was advanced centrally. The PICC line was cut to length, and advanced through a peel-away sheath such that it's tip resides at the cavoatrial junction. The peel-away sheath a sheath was removed. The catheter was s ecured in place. The catheter was found to flush and aspirate normally.. Sterile dressings were appli ed. No immediate complications were identified. Fluoroscopy time: 0.4 minutes Dose area product 0.4 Gycm2 Impression: Successful placement of a right upper extremity PICC line Electronically signed by: Coleman Finch MD (09/07/2020 12:47 PM) [id number]
[2020-09-07] MEDS: DAPTOmycin (GENERIC) IVPB 550 MG in IV NORMAL SALINE 50ML 50 ML IV SCH (13:56)
[2020-09-07 15:00] VITALS: BP 106/44
--- NOTE | 2020-09-07 18:05 | NUR ---
Wound Care Pt has incisional vac over proximal surgical incision and xeroform, abd and kerlix over distal incision. Left vac in place as it still has a good seal, will plan to change on Monday. Cleansed distal incision with chlorprep, covered with xeroform and abds and secured with kerlix. Pt also has a stage II PU to coccyx, cleansed wound and applied xeroform and foam dressing. No other wounds noted on full skin inspection. Pt turned to left side with heels floated on pillows. Pt educated on PU prevention. WC will continue to follow for possible changes.
[2020-09-07 19:00] VITALS: BP 85/40
[2020-09-07] MEDS: SIMVASTATIN 20 MG TABLET PO SCH (21:19)
[2020-09-07 23:00] VITALS: BP 137/46
[2020-09-08 03:00] VITALS: BP 122/49
[2020-09-08] MEDS: LEVOTHYROXINE 88 MCG TABLET PO SCH (06:37)
[2020-09-08] MEDS: OXYBUTYNIN CHLORIDE 5 MG TABLET PO SCH ×3 (06:39→21:14)
[2020-09-08 07:00] VITALS: BP 136/52
--- NOTE | 2020-09-08 07:08 | NUR ---
IP: Pt is mrsa + in knee requiring contact precautions.
--- NOTE | 2020-09-08 08:47 | PDOC ---
Infectious Disease Note Subjective Subjective Patient without complaints Postop pain is under control Denies fever, nausea, vomiting, shortness of breath, diarrhea, abdominal pain, rash Otherwise as above ROS ROS no n/v/d/ Vital Sign Vital Signs Vital Signs Date Time Temp Pulse Resp B/P (MAP) Pulse Ox O2 Delivery O2 Flow Rate FiO2 09/08/20 03:00 98.4 85 18 122/49 (73) 98 Room Air 98.4 09/07/20 18:17 2.0 Physical Exam PHYSICAL EXAM GENERAL: Alert, oriented x 3, pleasant female, lying in bed comfortably, in no acute distress. HEENT: Normocephalic, atraumatic. Anicteric. NECK: Supple. No JVD. LUNGS: Clear bilaterally. No wheezing. HEART: S1, S2. No gallops or murmurs. ABDOMEN: Soft, obese, nontender, nondistended. EXTREMITIES: Right lower extremity swelling present. Dressing in place not taken down NEUROLOGIC: Alert, oriented x 3, grossly nonfocal. PSYCHIATRIC: Calm and cooperative. DERMATOLOGIC: Warm, dry, no generalized rash. PIV looks clean. Labs Micro GRAM STAIN Final Final GRAM POS COCCI CLUSTERS:MODERATE RBC:MANY SQUAMOUS EPI CELL:NOT APPLICABLE PMN (WBCs):MANY Unless otherwise specified, Testing Performed by: [address] [address] For Inquires, the Physician may contact the Microbiology department at [phone] ANAEROBIC-AEROBIC CULTURE Final Final MANY [STAPHYLOCOCCUS AUREUS (MRSA)] on 08/29/20 at 1351 NO ANAEROBIC ORGANISMS ISOLATED on 09/02/20 at 0828 STAPHYLOCOCCUS AUREUS (MRSA) ANTIMICROBIAL SUSCEPTIBILITY Final Comment POS JC TYPE 38 STAPHYLOCOCCUS AUREUS (MRSA) ANTIBIOTIC RESULT INTERPRETATION AZITHROMYCIN >4 R CLINDAMYCIN <=0.25 R* CEFOXITIN SCREEN >4 POS CIPROFLOXACIN >2 R CEFTAROLINE 1 S DAPTOMYCIN 1 S ERYTHROMYCIN >4 R GENTAMICIN >8 R INDUCIBLE CLINDAMYCIN >4/0.5 POS LINEZOLID 2 S LEVOFLOXACIN >4 R OXACILLIN >2 R PENICILLIN >2 R* RIFAMPIN <=1 S TRIMETHOPRIM/SULFAMETHOXAZOLE >2/38 R RUN DATE: 09/02/20 [facility] *LIVE* PAGE 2 RUN TIME: 0832 Specimen Inquiry SPEC: [id number] PATIENT: YONIS HAIRSTON [id number] (Continued) Procedure Result CONTINUED ON NEXT PAGE RUN DATE: 09/02/20 [facility] *LIVE* PAGE 3 RUN TIME: 0832 Specimen Inquiry SPEC: [id number] PATIENT: YONIS HAIRSTON [id number] (Continued) - Procedure Result ANTIMICROBIAL SUSCEPTIBILITY Final (continued) TETRACYCLINE >8 R VANCOMYCIN 1 S Unless otherwise specified, Testing Performed by: [address] [address] For Inquires, the Physician may contact the Microbiology department at [phone] Objective Assessment MRSA Complicated RT Knee arthroplasty infection ( R to bactrim and Doxycycline, S to Rifampin) 1.. Right knee postop site drainage,hematoma with infection Status post synovial aspirate on 08/27/2020, WBC 2100, RBC 102,000, 98%PMNs. Cult MRSA 2. MRSA Right knee periprosthetic joint infection. S/P Irrigation and debridement right knee with superficial and deep cultures and retention of hardware Jt Fluid cultures done per DR Rossi + MRSA on 08/28 and then explant on 09/04 Subcut tissue cult positive for MRSA 3. Fever resolved 4. 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 5. Supracondylar fracture just above the knee joint 6. Status post removal of the components and placement of distal femoral replacement with a rotating hinge construct for periprosthetic distal femur fracture above well-fixated right total knee arthroplasty, 08/01/2020. 7. 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 8. Degenerative joint disease. 9. Bandemia. 10. Lactic acidosis. 11. Hypertension/hyperlipidemia. 12. History of chronic kidney disease. Pt refused for right above-knee ampuation so underwent salvage therapy with September 04 2020 Right knee infection with distal femoral replacement rotating-hinge knee imp lant present Underwent Explantation of femoral component and hinge portion, fixation of a distal tibial shaft fracture and placement of an antibiotic rigid spacer Complications noted tibial shaft fracture was noted with attempted removal of tibial component and fixated Knee hardware in place No cultures available from September 04, 2020 Plan Plan of Care Patient underwent complicated surgery on September 04, 2020 Operative note reviewed Discussed with Dr. Rossi Cont Daptomycin 10mg/kg daily (08/30) and Rifampin ( 08/30), rifampin is for synergy only Pharmacy to assist with drug drug interactions for rifampin with other meds Follow up labs and cultures. F/U minocycline susceptibilities to MRSA. Discussed with micro lab PICC line Wound care as directed by Orthopedics. PT and OT as directed Continue supportive care. Overall prognosis poor YAN RIOS MD Sep 08, 2020 08:47
[2020-09-08] MEDS: POLYETHYLENE GLYCOL 3350 17 GM PACKET. PO SCH (09:00)
[2020-09-08] MEDS: PANTOPRAZOLE 40 MG TABLET.DR. PO SCH (09:32)
[2020-09-08] MEDS: MULTIVITAMIN with MINERAL TABLET. PO SCH (09:33)
[2020-09-08] MEDS: LACTOBACILLUS RHAMNOSUS GG 1 CAPSULE. PO SCH ×2 (09:33→21:14)
[2020-09-08] MEDS: DOCUSATE SODIUM 100 MG CAPSULE. PO SCH ×2 (09:33→21:00)
[2020-09-08] MEDS: riFAMpin 300 MG CAPSULE. PO SCH ×2 (09:33→21:14)
[2020-09-08] MEDS: CHOLECALCIFEROL (VITAMIN D3) 1,000 UNIT TABLET PO SCH (09:33)
[2020-09-08] MEDS: oxyCODONE/APAP 7.5/325 1 TAB TABLET PO PRN ×2 (09:36→14:34)
[2020-09-08 11:00] VITALS: BP 112/38
--- NOTE | 2020-09-08 11:58 | PDOC ---
[facility] [facility] PROGRESS NOTE Date of Service DOS: DATE: 09/08/20 TIME: 11:57 Chief Complaint Chief Complaint ASSESSMENT Right knee swelling and discharge and pain after 2 recent knee replacements. Ms. Hairston is a 89 old female periprosthetic distal femur fracture above well fixated right total knee arthroplasty with minimal bone available for distal fixation. JULY 2020 She had removal of components and placement of a di stal femoral replacement with rotating hinge construct. FEVER T MAX 101.6F 6-17 SEPSIS PLAN ADMIT hold off on antibiotics until he takes the patient to surgery Postoperatively, she is going to need wound care, PT, OT and probably correction facility. ID CONSULT BLOOD CULTURES Operative procedure: Irrigation and debridement right knee with superficial and deep cultures and retention of hardware 6-18 6-18 hold off on antibiotics until he takes the patient to surgery Postoperatively, she is going to need wound care, PT, OT and probably correction facility. ID CONSULT BLOOD CULTURES Operative procedure: Irrigation and debridement right knee with superficial and deep cultures and retention of hardware 6-18 37 min pt exam, chart review, > 50% of time spent with exam, chart review, pt care coordination 6-19 emperic iv antibiotics Postoperatively, she is going to need wound care, PT, OT and probably correction facility. ID CONSULT BLOOD CULTURES Operative procedure: Irrigation and debridement right knee with superficial and deep cultures and retention of hardware 6-18 38 min pt exam, chart review, > 50% of time spent with exam, chart review, pt care coordination 6-20 pain improving emperic iv antibiotics Postoperatively, wound care, PT, OT and probably correction facility. ID CONSULT BLOOD CULTURES Operative procedure: Irrigation and debridement right knee with superficial and deep cultures and retention of hardware 6-18 Procedure Result GRAM STAIN Final Final GRAM POS COCCI CLUSTERS:MODERATE RBC:MANY SQUAMOUS EPI CELL:NOT APPLICABLE PMN (WBCs):MANY Unless otherwise specified, Testing Performed by: [address] [address] For Inquires, the Physician may contact the Microbiology department at [phone] ANAEROBIC-AEROBIC CULTURE Preliminary Preliminary MANY [STAPHYLOCOCCUS AUREUS (MRSA)] on 08/29/20 at 1351 STAPHYLOCOCCUS AUREUS (MRSA) ANTIMICROBIAL SUSCEPTIBILITY Preliminary Comment POS JC TYPE 38 STAPHYLOCOCCUS AUREUS (MRSA) ANTIBIOTIC RESULT INTERPRETATION AZITHROMYCIN >4 R CLINDAMYCIN <=0.25 R* CEFOXITIN SCREEN >4 POS CIPROFLOXACIN >2 R CEFTAROLINE 1 S DAPTOMYCIN 1 S ERYTHROMYCIN >4 R GENTAMICIN >8 R INDUCIBLE CLINDAMYCIN >4/0.5 POS LINEZOLID 2 S LEVOFLOXACIN >4 R OXACILLIN >2 R PENICILLIN >2 R* RIFAMPIN <=1 S TRIMETHOPRIM/SULFAMETHOXAZOLE >2/38 R TETRACYCLINE >8 R RUN DATE: 08/30/20 [facility] *LIVE* PAGE 2 RUN TIME: 913 Specimen Inquiry SPEC: [id number] PATIENT: YONIS HAIRSTON [id number] (Mala saab) Procedure Result CONTINUED ON NEXT PAGE RUN DATE: 08/30/20 [facility] *LIVE* PAGE 3 RUN TIME: 0914 Specimen Inquiry SPEC: [id number] PATIENT: YONIS HAIRSTON [id number] (Continued) - SPEC #: [id number] OFE: 08/27/20 STATUS: RES REQ #: [id number] RECD: 08/28/[address]: JUDIE HUBBARD III, DO SOURCE: LEG ENTR: 08/28/[address]: YAN RIOS MD SPDESC: WOUND PULS,BEVERLY De Jesus MD ORDERED: ANAER/AEROB/GS COMMENTS: R LEG SUBCUTANEOUS Procedure Result GRAM STAIN Final Final GRAM POS COCCI CLUSTERS:MODERATE RBC:MODERATE SQUAMOUS EPI CELL:RARE PMN (WBCs):MANY Unless otherwise specified, Testing Performed by: [address] [address] For Inquires, the Physician may contact the Microbiology department at [phone] ANAEROBIC-AEROBIC CULTURE Preliminary Preliminary MANY [STAPHYLOCOCCUS AUREUS (MRSA)] on 08/29/20 at 1351 SEE CULTURE AN663 FOR SUSCEPTIBILITY RESULTS STAPHYLOCOCCUS AUREUS (MRSA) Unless otherwise specified, Testing Performed by: [address] [address] For Inquires, the Physician may contact the Microbiology department at [phone] 36 min pt exam, chart review, > 50% of time spent with exam, chart review, pt care coordination 6 pain improving emperic iv antibiotics Postoperatively, wound care, PT, OT and probably correction facility. ID CONSULT BLOOD CULTURES Operative procedure: Irrigation and debridement right knee with superficial and deep cultures and retention of hardware 08-28 Procedure Result GRAM STAIN Final Final GRAM POS COCCI CLUSTERS:MODERATE RBC:MANY SQUAMOUS EPI CELL:NOT APPLICABLE PMN (WBCs):MANY Unless otherwise specified, Testing Performed by: [address] [address] For Inquires, the Physician may contact the Microbiology department at [phone] ANAEROBIC-AEROBIC CULTURE Preliminary Preliminary MANY [STAPHYLOCOCCUS AUREUS (MRSA)] on 08/29/20 at 1351 STAPHYLOCOCCUS AUREUS (MRSA) ANTIMICROBIAL SUSCEPTIBILITY Preliminary Comment POS JC TYPE 38 STAPHYLOCOCCUS AUREUS (MRSA) ANTIBIOTIC RESULT INTERPRETATION AZITHROMYCIN >4 R CLINDAMYCIN <=0.25 R* CEFOXITIN SCREEN >4 POS CIPROFLOXACIN >2 R CEFTAROLINE 1 S DAPTOMYCIN 1 S ERYTHROMYCIN >4 R GENTAMICIN >8 R INDUCIBLE CLINDAMYCIN >4/0.5 POS LINEZOLID 2 S LEVOFLOXACIN >4 R OXACILLIN >2 R PENICILLIN >2 R* RIFAMPIN <=1 S TRIMETHOPRIM/SULFAMETHOXAZOLE >2/38 R TETRACYCLINE >8 R RUN DATE: 08/30/20 [facility] *LIVE* PAGE 2 RUN TIME: 913 Specimen Inquiry SPEC: [id number] PATIENT: YONIS HAIRSTON [id number] (Continued) Procedure Result CONTINUED ON NEXT PAGE RUN DATE: 08/30/20 [facility] *LIVE* PAGE 3 RUN TIME: 913 Specimen Inquiry SPEC: [id number] PATIENT: YONIS HAIRSTON [id number] (Mala saab) SPEC #: [id number] OFE: 08/27/20 STATUS: RES REQ #: [id number] RECD: 08/28/[address]: JUDIE HUBBARD III, DO SOURCE: LEG ENTR: 08/28/[address] [facility] [address]: YAN RIOS MD [facility]: WOUND PULS,BEVERLY De Jesus MD ORDERED: ANAER/AEROB/GS COMMENTS: R LEG SUBCUTANEOUS Procedure Result GRAM STAIN Final Final GRAM POS COCCI CLUSTERS:MODERATE RBC:MODERATE SQUAMOUS EPI CELL:RARE PMN (WBCs):MANY Unless otherwise specified, Testing Performed by: [place] [address] For Inquires, the Physician may contact the Microbiology department at [phone] ANAEROBIC-AEROBIC CULTURE Preliminary Preliminary MANY [STAPHYLOCOCCUS AUREUS (MRSA)] on 08/29/20 at 1351 SEE CULTURE AN663 FOR SUSCEPTIBILITY RESULTS STAPHYLOCOCCUS AUREUS (MRSA) Unless otherwise specified, Testing Performed by: [address] [address] For Inquires, the Physician may contact the Microbiology department at [phone] 26 min pt exam, chart review, > 50% of time spent with exam, chart review, pt care coordination Cont Daptomycin higher dose 10mg/kg daily (08/30) and Rifampin ( 08/30). Avoid IV vancomycin due to BERHANE . monitor CK closely Follow up labs and cultures. 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 09-01 pain improving emperic iv antibiotics Postoperatively, wound care, PT, OT and probably correction facility. ID CONSULT BLOOD CULTURES Operative procedure: Irrigation and debridement right knee with superficial and deep cultures and retention of hardware 08-28 Procedure Result GRAM STAIN Final Final GRAM POS COCCI CLUSTERS:MODERATE RBC:MANY SQUAMOUS EPI CELL:NOT APPLICABLE PMN (WBCs):MANY Unless otherwise specified, Testing Performed by: [address] [address] For Inquires, the Physician may contact the Microbiology department at [phone] ANAEROBIC-AEROBIC CULTURE Preliminary Preliminary MANY [STAPHYLOCOCCUS AUREUS (MRSA)] on 08/29/20 at 1351 STAPHYLOCOCCUS AUREUS (MRSA) ANTIMICROBIAL SUSCEPTIBILITY Preliminary Comment POS JC TYPE 38 STAPHYLOCOCCUS AUREUS (MRSA) ANTIBIOTIC RESULT INTERPRETATION AZITHROMYCIN >4 R CLINDAMYCIN <=0.25 R* CEFOXITIN SCREEN >4 POS CIPROFLOXACIN >2 R CEFTAROLINE 1 S DAPTOMYCIN 1 S ERYTHROMYCIN >4 R GENTAMICIN >8 R INDUCIBLE CLINDAMYCIN >4/0.5 POS LINEZOLID 2 S LEVOFLOXACIN >4 R OXACILLIN >2 R PENICILLIN >2 R* RIFAMPIN <=1 S TRIMETHOPRIM/SULFAMETHOXAZOLE >2/38 R TETRACYCLINE >8 R RUN DATE: 08/30/20 [facility] *LIVE* PAGE 2 RUN TIME: 913 Specimen Inquiry SPEC: [id number] PATIENT: YONIS HAIRSTON [id number] (Continued) Procedure Result CONTINUED ON NEXT PAGE RUN DATE: 08/30/20 [facility] *LIVE* PAGE 3 RUN TIME: 913 Specimen Inquiry SPEC: [id number] PATIENT: YONIS HAIRSTON [id number] (Continued) SPEC #: [id number] OFE: 08/27/20-2019 STATUS: RES REQ #: [id number] RECD: 08/28/20-[address]: JUDIE HUBBARD III, DO SOURCE: LEG ENTR: 08/28/20-[address]: YAN RIOS MD SPDESC: WOUND PULSBEVERLY MD ORDERED: ANAER/AEROB/GS COMMENTS: R LEG SUBCUTANEOUS ------ ------ Procedure Result GRAM STAIN Final Final GRAM POS COCCI CLUSTERS:MODERATE RBC:MODERATE SQUAMOUS EPI CELL:RARE PMN (WBCs):MANY Unless otherwise specified, Testing Performed by: [address] [address] For Inquires, the Physician may contact the Microbiology department at [phone] ANAEROBIC-AEROBIC CULTURE Preliminary Preliminary MANY [STAPHYLOCOCCUS AUREUS (MRSA)] on 08/29/20 at 1351 SEE CULTURE AN663 FOR SUSCEPTIBILITY RESULTS STAPHYLOCOCCUS AUREUS (MRSA) Unless otherwise specified, Testing Performed by: [address] [address] For Inquires, the Physician may contact the Microbiology department at [phone] - 26 min pt exam, chart review, > 50% of time spent with exam, chart review, pt care coordination Cont Daptomycin higher dose 10mg/kg daily (08/30) and Rifampin ( 08/30). Avoid IV vancomycin due to BERHANE . monitor CK closely Follow up labs and cultures. 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 6 pain improving emperic iv antibiotics Postoperatively, wound care, PT, OT and probably correction facility. ID CONSULT BLOOD CULTURES Operative procedure: Irrigation and debridement right knee with superficial and deep cultures and retention of hardware 6-18 Procedure Result GRAM STAIN Final Final GRAM POS COCCI CLUSTERS:MODERATE RBC:MANY SQUAMOUS EPI CELL:NOT APPLICABLE PMN (WBCs):MANY Unless otherwise specified, Testing Performed by: [address] [address] For Inquires, the Physician may contact the Microbiology department at [phone] ANAEROBIC-AEROBIC CULTURE Preliminary Preliminary MANY [STAPHYLOCOCCUS AUREUS (MRSA)] on 08/29/20 at 1351 STAPHYLOCOCCUS AUREUS (MRSA) ANTIMICROBIAL SUSCEPTIBILITY Preliminary Comment POS JC TYPE 38 STAPHYLOCOCCUS AUREUS (MRSA) ANTIBIOTIC RESULT INTERPRETATION AZITHROMYCIN >4 R CLINDAMYCIN <=0.25 R* CEFOXITIN SCREEN >4 POS CIPROFLOXACIN >2 R CEFTAROLINE 1 S DAPTOMYCIN 1 S ERYTHROMYCIN >4 R GENTAMICIN >8 R INDUCIBLE CLINDAMYCIN >4/0.5 POS LINEZOLID 2 S LEVOFLOXACIN >4 R OXACILLIN >2 R PENICILLIN >2 R* RIFAMPIN <=1 S TRIMETHOPRIM/SULFAMETHOXAZOLE >2/38 R TETRACYCLINE >8 R RUN DATE: 08/30/20 [facility] *LIVE* PAGE 2 RUN TIME: 913 Specimen Inquiry SPEC: [id number] PATIENT: YONIS HAIRSTON [id number] (Continued) Procedure Result CONTINUED ON NEXT PAGE RUN DATE: 08/30/20 [facility] *LIVE* PAGE 3 RUN TIME: 913 Specimen Inquiry SPEC: [id number] PATIENT: YONIS HAIRSTON [id number] (Continued) SPEC #: [id number] OFE: 08/27/20 STATUS: RES REQ #: [id number] RECD: 08/28/[address]: JUDIE HUBBARD III, DO SOURCE: LEG ENTR: 08/28/[address]: YAN RIOS MD SPDC: WOUND BEVERLY SPENCER MD ORDERED: SHAHEEN/CHAI/KARI COMMENTS: R LEG SUBCUTANEOUS Procedure Result GRAM STAIN Final Final GRAM POS COCCI CLUSTERS:MODERATE RBC:MODERATE SQUAMOUS EPI CELL:RARE PMN (WBCs):MANY Unless otherwise specified, Testing Performed by: [address] [address] For Inquires, the Physician may contact the Microbiology department at [phone] ANAEROBIC-AEROBIC CULTURE Preliminary Preliminary MANY [STAPHYLOCOCCUS AUREUS (MRSA)] on 08/29/20 at 1351 SEE CULTURE AN663 FOR SUSCEPTIBILITY RESULTS STAPHYLOCOCCUS AUREUS (MRSA) Unless otherwise specified, Testing Performed by: [address] [address] For Inquires, the Physician may contact the Microbiology department at [phone] 36 min pt exam, chart review, > 50% of time spent with exam, chart review, pt care coordination Cont Daptomycin higher dose 10mg/kg daily (08/30) and Rifampin ( 08/30). Avoid IV vancomycin due to BERHANE . monitor CK closely Follow up labs and cultures. 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 further surgical plans per orthopedics if pt is a candidate, . Difficult surgical candidate due to femur implant.... Despite aggressive medical management patient is at high risk of limb loss 6-25 pain improving emperic iv antibiotics Postoperatively, wound care, PT, OT and probably correction facility. ID CONSULT BLOOD CULTURES Operative procedure: Irrigation and debridement right knee with superficial and deep cultures and retention of hardware 6-18 Procedure Result GRAM STAIN Final Final GRAM POS COCCI CLUSTERS:MODERATE RBC:MANY SQUAMOUS EPI CELL:NOT APPLICABLE PMN (WBCs):MANY Unless otherwise specified, Testing Performed by: [address] [address] For Inquires, the Physician may contact the Microbiology department at [phone] ANAEROBIC-AEROBIC CULTURE Preliminary Preliminary MANY [STAPHYLOCOCCUS AUREUS (MRSA)] on 08/29/20 at 1351 STAPHYLOCOCCUS AUREUS (MRSA) ANTIMICROBIAL SUSCEPTIBILITY Preliminary Comment POS JC TYPE 38 STAPHYLOCOCCUS AUREUS (MRSA) ANTIBIOTIC RESULT INTERPRETATION AZITHROMYCIN >4 R CLINDAMYCIN <=0.25 R* CEFOXITIN SCREEN >4 POS CIPROFLOXACIN >2 R CEFTAROLINE 1 S DAPTOMYCIN 1 S ERYTHROMYCIN >4 R GENTAMICIN >8 R INDUCIBLE CLINDAMYCIN >4/0.5 POS LINEZOLID 2 S LEVOFLOXACIN >4 R OXACILLIN >2 R PENICILLIN >2 R* RIFAMPIN <=1 S TRIMETHOPRIM/SULFAMETHOXAZOLE >2/38 R TETRACYCLINE >8 R RUN DATE: 08/30/20 [facility] *LIVE* PAGE 2 RUN TIME: 09 Specimen Inquiry SPEC: [id number] PATIENT: YONIS HAIRSTON [id number] (Continued) - Procedure Result CONTINUED ON NEXT PAGE RUN DATE: 08/30/20 [facility] *LIVE* PAGE 3 RUN TIME: 913 Specimen Inquiry SPEC: [id number] PATIENT: YONIS HAIRSTON [id number] (Continued) SPEC #: [id number] OFE: 08/27/20 STATUS: RES REQ #: [id number] RECD: 08/28/[address]: JUDIE HUBBARD III, DO SOURCE: LEG ENTR: 08/28/[address]: YAN RIOS MD [facility]: WOUND BEVERLY SPENCER MD ORDERED: SHAHEEN/CHAI/KARI COMMENTS: R LEG SUBCUTANEOUS --- --------- Procedure Result GRAM STAIN Final Final GRAM POS COCCI CLUSTERS:MODERATE RBC:MODERATE SQUAMOUS EPI CELL:RARE PMN (WBCs):MANY Unless otherwise specified, Testing Performed by: [address] [address] For Inquires, the Physician may contact the Microbiology department at [phone] ANAEROBIC-AEROBIC CULTURE Preliminary Preliminary MANY [STAPHYLOCOCCUS AUREUS (MRSA)] on 08/29/20 at 1351 SEE CULTURE AN663 FOR SUSCEPTIBILITY RESULTS STAPHYLOCOCCUS AUREUS (MRSA) Unless otherwise specified, Testing Performed by: [address] [address] For Inquires, the Physician may contact the Microbiology department at [phone] 26 min pt exam, chart review, > 50% of time spent with exam, chart review, pt care coordination Cont Daptomycin higher dose 10mg/kg daily (08/30) and Rifampin ( 08/30). Avoid IV vancomycin due to BERHANE . monitor CK closely Follow up labs and cultures. 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 further surgical plans per orthopedics if pt is a candidate, . Difficult surgical candidate due to femur implant.... Despite aggressive medical management patient is at high risk of limb loss 6-25 pain improving emperic iv antibiotics Postoperatively, wound care, PT, OT and probably correction facility. ID CONSULT BLOOD CULTURES Operative procedure: Irrigation and debridement right knee with superficial and deep cultures and retention of hardware 6-18 Procedure Result GRAM STAIN Final Final GRAM POS COCCI CLUSTERS:MODERATE RBC:MANY SQUAMOUS EPI CELL:NOT APPLICABLE PMN (WBCs):MANY Unless otherwise specified, Testing Performed by: [address] [address] For Inquires, the Physician may contact the Microbiology department at [phone] ANAEROBIC-AEROBIC CULTURE Preliminary Preliminary MANY [STAPHYLOCOCCUS AUREUS (MRSA)] on 08/29/20 at 1351 STAPHYLOCOCCUS AUREUS (MRSA) ANTIMICROBIAL SUSCEPTIBILITY Preliminary Comment POS JC TYPE 38 STAPHYLOCOCCUS AUREUS (MRSA) ANTIBIOTIC RESULT INTERPRETATION AZITHROMYCIN >4 R CLINDAMYCIN <=0.25 R* CEFOXITIN SCREEN >4 POS CIPROFLOXACIN >2 R CEFTAROLINE 1 S DAPTOMYCIN 1 S ERYTHROMYCIN >4 R GENTAMICIN >8 R INDUCIBLE CLINDAMYCIN >4/0.5 POS LINEZOLID 2 S LEVOFLOXACIN >4 R OXACILLIN >2 R PENICILLIN >2 R* RIFAMPIN <=1 S TRIMETHOPRIM/SULFAMETHOXAZOLE >2/38 R TETRACYCLINE >8 R RUN DATE: 08/30/20 [facility] *LIVE* PAGE 2 RUN TIME: 913 Specimen Inquiry SPEC: [id number] PATIENT: YONIS HAIRSTON [id number] (Continued) Procedure Result CONTINUED ON NEXT PAGE RUN DATE: 08/30/20 [facility] *LIVE* PAGE 3 RUN TIME: 913 Specimen Inquiry SPEC: [id number] PATIENT: YONIS HAIRSTON [id number] (Continued) SPEC #: [id number] OFE: 08/27/20 STATUS: RES REQ #: [id number] RECD: 08/28/[address]: JUDIE HUBBARD III, DO SOURCE: LEG ENTR: 08/28/[address]: YAN RIOS MD [facility]: WOUND PULS,BEVERLY De Jesus MD ORDERED: ANAER/AEROB/GS COMMENTS: R LEG SUBCUTANEOUS Procedure Result GRAM STAIN Final Final GRAM POS COCCI CLUSTERS:MODERATE RBC:MODERATE SQUAMOUS EPI CELL:RARE PMN (WBCs):MANY Unless otherwise specified, Testing Performed by: [address] [address] For Inquires, the Physician may contact the Microbiology department at [phone] ANAEROBIC-AEROBIC CULTURE Preliminary Preliminary MANY [STAPHYLOCOCCUS AUREUS (MRSA)] on 08/29/20 at 1351 SEE CULTURE AN663 FOR SUSCEPTIBILITY RESULTS STAPHYLOCOCCUS AUREUS (MRSA) Unless otherwise specified, Testing Performed by: [address] [address] For Inquires, the Physician may contact the Microbiology department at [phone] 26 min pt exam, chart review, > 50% of time spent with exam, chart review, pt care coordination Cont Daptomycin higher dose 10mg/kg daily (08/30) and Rifampin ( 08/30). Avoid IV vancomycin due to BERHANE . monitor CK closely Follow up labs and cultures. 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 further surgical plans per orthopedics if pt is a candidate, . Difficult surgical candidate due to femur implant.... Despite aggressive medical management patient is at high risk of limb loss family are decided on this could proceed with surgical treatment accordingly and would have to arrange the materials likely with surgery 6-25 pain improving emperic iv antibiotics Postoperatively, wound care, PT, OT and probably correction facility. ID CONSULT BLOOD CULTURES Operative procedure: Irrigation and debridement right knee with superficial and deep cultures and retention of hardware 08-28 Procedure Result GRAM STAIN Final Final GRAM POS COCCI CLUSTERS:MODERATE RBC:MANY SQUAMOUS EPI CELL:NOT APPLICABLE PMN (WBCs):MANY Unless otherwise specified, Testing Performed by: [address] [address] For Inquires, the Physician may contact the Microbiology department at [phone] ANAEROBIC-AEROBIC CULTURE Preliminary Preliminary MANY [STAPHYLOCOCCUS AUREUS (MRSA)] on 08/29/20 at 1351 STAPHYLOCOCCUS AUREUS (MRSA) ANTIMICROBIAL SUSCEPTIBILITY Preliminary Comment POS JC TYPE 38 STAPHYLOCOCCUS AUREUS (MRSA) ANTIBIOTIC RESULT INTERPRETATION AZITHROMYCIN >4 R CLINDAMYCIN <=0.25 R* CEFOXITIN SCREEN >4 POS CIPROFLOXACIN >2 R CEFTAROLINE 1 S DAPTOMYCIN 1 S ERYTHROMYCIN >4 R GENTAMICIN >8 R INDUCIBLE CLINDAMYCIN >4/0.5 POS LINEZOLID 2 S LEVOFLOXACIN >4 R OXACILLIN >2 R PENICILLIN >2 R* RIFAMPIN <=1 S TRIMETHOPRIM/SULFAMETHOXAZOLE >2/38 R TETRACYCLINE >8 R RUN DATE: 08/30/20 [facility] *LIVE* PAGE 2 RUN TIME: 913 Specimen Inquiry SPEC: [id number] PATIENT: YONIS HAIRSTON [id number] (Continued) Procedure Result CONTINUED ON NEXT PAGE - RUN DATE: 08/30/20 [facility] *LIVE* PAGE 3 RUN TIME: 0914 Specimen Inquiry - SPEC: [id number] PATIENT: YONIS HAIRSTON [id number] (Continued) SPEC #: [id number] OFE: 08/27/20 STATUS: RES REQ #: [id number] RECD: 08/28/[address]: JUDIE HUBBARD III, DO SOURCE: LEG ENTR: 08/28/[address] [facility] [address]: YAN RIOS MD SPDESC: WOUND PULS,BEVERLY De Jesus MD ORDERED: ANAER/AEROB/GS COMMENTS: R LEG SUBCUTANEOUS Procedure Result GRAM STAIN Final Final GRAM POS COCCI CLUSTERS:MODERATE RBC:MODERATE SQUAMOUS EPI CELL:RARE PMN (WBCs):MANY Unless otherwise specified, Testing Performed by: [address] [place] [address] For Inquires, the Physician may contact the Microbiology department at [phone] ANAEROBIC-AEROBIC CULTURE Preliminary Preliminary MANY [STAPHYLOCOCCUS AUREUS (MRSA)] on 08/29/20 at 1351 SEE CULTURE AN663 FOR SUSCEPTIBILITY RESULTS STAPHYLOCOCCUS AUREUS (MRSA) Unless otherwise specified, Testing Performed by: [facility] [address] [place] [address] For Inquires, the Physician may contact the Microbiology department at [phone] 26 min pt exam, chart review, > 50% of time spent with exam, chart review, pt care coordination C 6-27 pain improving emperic iv antibiotics Postoperatively, wound care, PT, OT and probably correction facility. ID CONSULT BLOOD CULTURES Operative procedure: Irrigation and debridement right knee with superficial and deep cultures and retention of hardware 6-18 Procedure Result - GRAM STAIN Final Final GRAM POS COCCI CLUSTERS:MODERATE RBC:MANY SQUAMOUS EPI CELL:NOT APPLICABLE PMN (WBCs):MANY Unless otherwise specified, Testing Performed by: [facility] [address] [place] [address] For Inquires, the Physician may contact the Microbiology department at [phone] ANAEROBIC-AEROBIC CULTURE Preliminary Preliminary MANY [STAPHYLOCOCCUS AUREUS (MRSA)] on 08/29/20 at 1351 STAPHYLOCOCCUS AUREUS (MRSA) ANTIMICROBIAL SUSCEPTIBILITY Preliminary Comment POS JC TYPE 38 STAPHYLOCOCCUS AUREUS (MRSA) ANTIBIOTIC RESULT INTERPRETATION AZITHROMYCIN >4 R CLINDAMYCIN <=0.25 R* CEFOXITIN SCREEN >4 POS CIPROFLOXACIN >2 R CEFTAROLINE 1 S DAPTOMYCIN 1 S ERYTHROMYCIN >4 R GENTAMICIN >8 R INDUCIBLE CLINDAMYCIN >4/0.5 POS LINEZOLID 2 S LEVOFLOXACIN >4 R OXACILLIN >2 R PENICILLIN >2 R* RIFAMPIN <=1 S TRIMETHOPRIM/SULFAMETHOXAZOLE >2/38 R TETRACYCLINE >8 R RUN DATE: 08/30/20 [facility] *LIVE* PAGE 2 RUN TIME: 913 Specimen Inquiry SPEC: [id number] PATIENT: YONIS HAIRSTON Francine [id number] (Continued) Procedure Result CONTINUED ON NEXT PAGE RUN DATE: 08/30/20 [facility] *LIVE* PAGE 3 RUN TIME: 913 Specimen Inquiry SPEC: [id number] PATIENT: YONIS HAIRSTON [id number] (Continued) SPEC #: [id number] OFE: 08/27/20-2019 STATUS: RES REQ #: [id number] RECD: 08/28/20-[address]: JUDIE HUBBARD III DO SOURCE: LEG ENTR: 08/28/20-[address]: YAN RIOS MD [facility]: WOUND JOHANNA,BEVERLY De Jesus MD ORDERED: SHAHEEN/CHAI/KARI COMMENTS: R LEG SUBCUTANEOUS Procedure Result GRAM STAIN Final Final GRAM POS COCCI CLUSTERS:MODERATE RBC:MODERATE SQUAMOUS EPI CELL:RARE PMN (WBCs):MANY Unless otherwise specified, Testing Performed by: [place] [address] For Inquires, the Physician may contact the Microbiology department at [phone] ANAEROBIC-AEROBIC CULTURE Preliminary Preliminary MANY [STAPHYLOCOCCUS AUREUS (MRSA)] on 08/29/20 at 1351 SEE CULTURE AN663 FOR SUSCEPTIBILITY RESULTS STAPHYLOCOCCUS AUREUS (MRSA) Unless otherwise specified, Testing Performed by: [address] [address] For Inquires, the Physician may contact the Microbiology department at [phone] 36 min pt exam, chart review, > 50% of time spent with exam, chart review, pt care coordination Cont Daptomycin higher dose 10mg/kg daily (08/30) and Rifampin ( 08/30). Avoid IV vancomycin due to BERHANE . monitor CK closely Follow up labs and cultures. 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 further surgical plans per orthopedics if pt is a candidate, . Difficult surgical candidate due to femur implant.... Despite aggressive medical management patient is at high risk of limb loss family are decided on this could proceed with surgical treatment accordingly and would have to arrange the materials likely with surgery Cont Daptomycin 10mg/kg daily (08/30) and Rifampin ( 08/30), rifampin is for [facility] to assist with drug drug interactions for rifampin with other meds 6-27 pain improving emperic iv antibiotics Postoperatively, wound care, PT, OT and probably correction facility. ID CONSULT BLOOD CULTURES Operative procedure: Irrigation and debridement right knee with superficial and deep cultures and retention of hardware 618 Procedure Result GRAM STAIN Final Final GRAM POS COCCI CLUSTERS:MODERATE RBC:MANY SQUAMOUS EPI CELL:NOT APPLICABLE PMN (WBCs):MANY Unless otherwise specified, Testing Performed by: [address] [address] For Inquires, the Physician may contact the Microbiology department at [phone] ANAEROBIC-AEROBIC CULTURE Preliminary Preliminary MANY [STAPHYLOCOCCUS AUREUS (MRSA)] on 08/29/20 at 1351 STAPHYLOCOCCUS AUREUS (MRSA) ANTIMICROBIAL SUSCEPTIBILITY Preliminary Comment POS JC TYPE 38 STAPHYLOCOCCUS AUREUS (MRSA) ANTIBIOTIC RESULT INTERPRETATION AZITHROMYCIN >4 R CLINDAMYCIN <=0.25 R* CEFOXITIN SCREEN >4 POS CIPROFLOXACIN >2 R CEFTAROLINE 1 S DAPTOMYCIN 1 S ERYTHROMYCIN >4 R GENTAMICIN >8 R INDUCIBLE CLINDAMYCIN >4/0.5 POS LINEZOLID 2 S LEVOFLOXACIN >4 R OXACILLIN >2 R PENICILLIN >2 R* RIFAMPIN <=1 S TRIMETHOPRIM/SULFAMETHOXAZOLE >2/38 R TETRACYCLINE >8 R ont Daptomycin higher dose 10mg/kg daily (08/30) and Rifampin ( 08/30). Avoid IV vancomycin due to BERHANE . monitor CK closely Follow up labs and cultures. 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 further surgical plans per orthopedics if pt is a candidate, . Difficult surgical candidate due to femur implant.... Despite aggressive medical management patient is at high risk of limb loss History of Present Illness History of Present Illness 09/08, Dapto needed, may be extended time, 6 weeks, discussed wt ID Vasc following, may need angio PICC was placed plan to send to acute rehab soon cotn PT and OT Vitals/I&O Vitals/I&O: Vital Signs Date Time Temp Pulse Resp B/P (MAP) Pulse Ox O2 Delivery O2 Flow Rate FiO2 09/08/20 10:00 Room Air 09/08/20 07:00 98.3 80 18 136/52 (80) 97 98.3 09/07/20 18:17 2.0 I & O 09/07/20 09/07/20 09/08/20 15:00 23:00 07:00 Intake Total 200 ml 200 ml Balance 200 ml 200 ml Physical Exam Physical Exam: GENERAL: Alert, oriented x 3, pleasant female, lying in bed comfortably, in no acute distress. HEENT: Normocephalic, atraumatic. Anicteric. NECK: Supple. No JVD. LUNGS: Clear bilaterally. No wheezing. HEART: S1, S2. No gallops or murmurs. ABDOMEN: Soft, obese, nontender, nondistended. EXTREMITIES: Right lower extremity swelling present. Dressing in place not taken down NEUROLOGIC: Alert, oriented x 3, grossly nonfocal. PSYCHIATRIC: Calm and cooperative. DERMATOLOGIC: Warm, dry, no generalized rash. PIV looks clean. General: Alert, Oriented X3, Cooperative, No acute distress Heart: Regular rate Lungs: Clear Abdomen: Normal bowel sounds, Soft Extremities: No cyanosis Assessment and Plan Assessmemt and Plan Problems Medical Problems: (1) Cellulitis Status: Acute Comment Review of Relevant I have reviewed the following items fiorella (where applicable) has been applied. Justifications for Admission Other Justification LOLI VILLEGAS MD Sep 08, 2020 11:58
[2020-09-08] MEDS: DAPTOmycin (GENERIC) IVPB 550 MG in IV NORMAL SALINE 50ML 50 ML IV SCH (12:54)
--- NOTE | 2020-09-08 14:55 | NUR ---
Wound Care: Pt seen per wound care again today for dressing change. Pt has incisional vac over proximal surgical incision Left vac in place as it still has a good seal, will plan to change on Monday. Cleansed distal incision with chlorprep, covered with xeroform and abds and secured with kerlix. Bilateral heels elevated using pillows. Bed lowered and call light in reach. Wound care will follow up on Monday.
[2020-09-08 15:00] VITALS: BP 100/42
--- NOTE | 2020-09-08 17:41 | PDOC ---
PROGRESS NOTES Date of Service DATE: 09/08/20 TIME: 17:33 Subjective Subjective Problems overnight: Leslie's nurses report that she is having difficulty really getting up and around with the 25% weightbearing restrictions and she is still been using the bedpan. [facility] but trusts Demetrius much more and was pleased that she was shown some exercises that she can do even in bed and she is trying to get up and around more today although she is limited by her upper body strength Objective Vital Signs Vital Signs Date Time Temp Pulse Resp B/P (MAP) Pulse Ox O2 Delivery O2 Flow Rate FiO2 09/08/20 15:05 Room Air 09/08/20 15:00 98.5 76 18 100/42 (61) 97 98.5 09/07/20 18:17 2.0 Physical Exam I examined her before the wound VAC was changed later today and noted signifi cant bloody drainage in the wound VAC reservoir although this has been on since surgery. There is no surrounding redness or erythema. Her distal neurovascular status is intact but she does have a little bit of redness and slight duskiness at the medial incision although it remains intact Labs Laboratory Tests Test 09/07/20 05:20 Creatine Kinase 44 U/L ([id number]) Assessment Assessment POD#placement antibiotic spacer with explantation of knee hardware aside from retained tibial component Plan Plan of Care I went over with her that the idea of the weightbearing restriction is that she take most of her weight on the upper body but ambulate with assistance. The rationale of this is that hardware could fatigue and break if too much pressure is put on it before healing occurs. That said I would encourage as much mobilization and exercise as possible for her to keep her strength up. We did also have a discussion about how she knows if the antibiotics are working. I told her that we would examine how her wounds are healing and how she is doing overall including future laboratory tests on her inflammatory markers which would respond over the longer term. I did emphasize as she had heard multiple times from myself and the infectious disease doctors that we would undergo initial IV antibiotics and oral alternatives based on the resistance profile are very limited. She understands this and continues to want to keep her leg r egardless of the circumstances currently. We will see how she continues to do trying to mobilize and hopefully qualify for some rehabilitation when placement warrants Justicifation of Admission Dx: Justifications for Admission: Justification of Admission Dx: N/A GURU TORRES MD Sep 08, 2020 17:41
[2020-09-08 19:20] VITALS: BP 100/41
[2020-09-08] MEDS: SIMVASTATIN 20 MG TABLET PO SCH (21:14)
[2020-09-08 23:15] VITALS: BP 117/53
[2020-09-09 03:05] VITALS: BP 141/64
[2020-09-09] MEDS: LEVOTHYROXINE 88 MCG TABLET PO SCH (06:37)
[2020-09-09] MEDS: OXYBUTYNIN CHLORIDE 5 MG TABLET PO SCH ×3 (06:37→21:09)
[2020-09-09 07:00] VITALS: BP 123/55
[2020-09-09] MEDS: LACTOBACILLUS RHAMNOSUS GG 1 CAPSULE. PO SCH ×2 (07:45→21:09)
[2020-09-09] MEDS: CHOLECALCIFEROL (VITAMIN D3) 1,000 UNIT TABLET PO SCH (07:45)
[2020-09-09] MEDS: MULTIVITAMIN with MINERAL TABLET. PO SCH (07:45)
[2020-09-09] MEDS: riFAMpin 300 MG CAPSULE. PO SCH ×2 (07:45→21:09)
[2020-09-09] MEDS: POLYETHYLENE GLYCOL 3350 17 GM PACKET. PO SCH (07:46)
[2020-09-09] MEDS: PANTOPRAZOLE 40 MG TABLET.DR. PO SCH (07:46)
[2020-09-09] MEDS: DOCUSATE SODIUM 100 MG CAPSULE. PO SCH ×2 (07:46→21:09)
--- NOTE | 2020-09-09 08:33 | PDOC ---
Infectious Disease Note Subjective Subjective Patient without complaints Postop pain is under control Denies fever, nausea, vomiting, shortness of breath, diarrhea, abdominal pain, rash Otherwise as above Vital Sign Vital Signs Vital Signs Date Time Temp Pulse Resp B/P (MAP) Pulse Ox O2 Delivery O2 Flow Rate FiO2 09/09/20 08:00 Room Air 09/09/20 03:05 98.5 90 18 141/64 (89) 97 98.5 Physical Exam PHYSICAL EXAM GENERAL: Alert, oriented x 3, pleasant female, lying in bed comfortably, in no acute distress. HEENT: Normocephalic, atraumatic. Anicteric. NECK: Supple. No JVD. LUNGS: Clear bilaterally. No wheezing. HEART: S1, S2. No gallops or murmurs. ABDOMEN: Soft, obese, nontender, nondistended. EXTREMITIES: Right lower extremity swelling present. Dressing in place not taken down NEUROLOGIC: Alert, oriented x 3, grossly nonfocal. PSYCHIATRIC: Calm and cooperative. DERMATOLOGIC: Warm, dry, no generalized rash. PIV looks clean. Labs Micro GRAM STAIN Final Final GRAM POS COCCI CLUSTERS:MODERATE RBC:MANY SQUAMOUS EPI CELL:NOT APPLICABLE PMN (WBCs):MANY Unless otherwise specified, Testing Performed by: [address] [address] For Inquires, the Physician may contact the Microbiology department at [phone] ANAEROBIC-AEROBIC CULTURE Final Final MANY [STAPHYLOCOCCUS AUREUS (MRSA)] on 08/29/20 at 1351 NO ANAEROBIC ORGANISMS ISOLATED on 09/02/20 at 0828 STAPHYLOCOCCUS AUREUS (MRSA) ANTIMICROBIAL SUSCEPTIBILITY Final Comment POS JC TYPE 38 STAPHYLOCOCCUS AUREUS (MRSA) ANTIBIOTIC RESULT INTERPRETATION AZITHROMYCIN >4 R CLINDAMYCIN <=0.25 R* CEFOXITIN SCREEN >4 POS CIPROFLOXACIN >2 R CEFTAROLINE 1 S DAPTOMYCIN 1 S ERYTHROMYCIN >4 R GENTAMICIN >8 R INDUCIBLE CLINDAMYCIN >4/0.5 POS LINEZOLID 2 S LEVOFLOXACIN >4 R OXACILLIN >2 R PENICILLIN >2 R* RIFAMPIN <=1 S TRIMETHOPRIM/SULFAMETHOXAZOLE >2/38 R RUN DATE: 09/02/20 [facility] *LIVE* PAGE 2 RUN TIME: 0832 Specimen Inquiry SPEC: [id number] PATIENT: YONIS HAIRSTON [id number] (Continued) Procedure Result CONTINUED ON NEXT PAGE RUN DATE: 09/02/20 [facility] *LIVE* PAGE 3 RUN TIME: 0832 Specimen Inquiry SPEC: [id number] PATIENT: YONIS HAIRSTON [id number] (Continued) Procedure Result -------- ---- ANTIMICROBIAL SUSCEPTIBILITY Final (continued) TETRACYCLINE >8 R VANCOMYCIN 1 S Unless otherwise specified, Testing Performed by: [facility] [address] [place] [address] For Inquires, the Physician may contact the Microbiology department at [phone] Objective Assessment MRSA Complicated RT Knee arthroplasty infection ( R to bactrim and Doxycycline, S to Rifampin) 1.. Right knee postop site drainage,hematoma with infection Status post synovial aspirate on 08/27/2020, WBC 2100, RBC 102,000, 98%PMNs. Cult MRSA 2. MRSA Right knee periprosthetic joint infection. S/P Irrigation and debridement right knee with superficial and deep cultures and retention of hardware Jt Fluid cultures done per DR Rossi + MRSA on 08/28 and then explant on 09/04 Subcut tissue cult positive for MRSA 3. Fever resolved 4. 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 5. Supracondylar fracture just above the knee joint 6. Status post removal of the components and placement of distal femoral replacement with a rotating hinge construct for periprosthetic distal femur fracture above well-fixated right total knee arthroplasty, 08/01/2020. 7. 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 8. Degenerative joint disease. 9. Bandemia. 10. Lactic acidosis. 11. Hypertension/hyperlipidemia. 12. History of chronic kidney disease. Pt refused for right above-knee ampuation so underwent salvage therapy with September 04 2020 Right knee infection with distal femoral replacement rotating-hinge knee implant present Underwent Explantation of femoral component and hinge portion, fixation of a distal tibial shaft fracture and placement of an antibiotic rigid spacer Complications noted tibial shaft fracture was noted with attempted removal of tibial component and fixated Knee hardware in place No cultures available from September 04, 2020 Plan Plan of Care Patient underwent complicated surgery on September 04, 2020 Operative note reviewed Discussed with Dr. Rossi Cont Daptomycin 10mg/kg daily (08/30) and Rifampin ( 08/30), [facility]in is for [facility] to assist with drug drug interactions for rifampin with other meds Follow up labs and cultures. F/U minocycline susceptibilities to MRSA. Discussed with micro lab PICC line Wound care as directed by Orthopedics. PT and OT as directed Continue supportive care. Overall prognosis poor YAN RIOS MD Sep 09, 2020 08:33
[2020-09-09 11:00] VITALS: BP 116/45
[2020-09-09] MEDS: DAPTOmycin (GENERIC) IVPB 550 MG in IV NORMAL SALINE 50ML 50 ML IV SCH (11:19)
--- NOTE | 2020-09-09 13:13 | PDOC ---
[facility] [facility] PROGRESS NOTE Date of Service DOS: DATE: 09/09/20 TIME: 13:13 Chief Complaint Chief Complaint ASSESSMENT Right knee swelling and discharge and pain after 2 recent knee replacements. Ms. Hairston is a 89 old female periprosthetic distal femur fracture above well fixated right total knee arthroplasty with minimal bone available for distal fixation. JULY 2020 She had removal of components and placement of a di stal femoral replacement with rotating hinge construct. FEVER T MAX 101.6F 6-17 SEPSIS PLAN ADMIT hold off on antibiotics until he takes the patient to surgery Postoperatively, she is going to need wound care, PT, OT and probably fdc facility. ID CONSULT BLOOD CULTURES Operative procedure: Irrigation and debridement right knee with superficial and deep cultures and retention of hardware 6-18 6-18 hold off on antibiotics until he takes the patient to surgery Postoperatively, she is going to need wound care, PT, OT and probably fdc facility. ID CONSULT BLOOD CULTURES Operative procedure: Irrigation and debridement right knee with superficial and deep cultures and retention of hardware 6-18 37 min pt exam, chart review, > 50% of time spent with exam, chart review, pt care coordination 6-19 emperic iv antibiotics Postoperatively, she is going to need wound care, PT, OT and probably fdc facility. ID CONSULT BLOOD CULTURES Operative procedure: Irrigation and debridement right knee with superficial and deep cultures and retention of hardware 6-18 38 min pt exam, chart review, > 50% of time spent with exam, chart review, pt care coordination 6-20 pain improving emperic iv antibiotics Postoperatively, wound care, PT, OT and probably fdc facility. ID CONSULT BLOOD CULTURES Operative procedure: Irrigation and debridement right knee with superficial and deep cultures and retention of hardware 6-18 Procedure Result GRAM STAIN Final Final GRAM POS COCCI CLUSTERS:MODERATE RBC:MANY SQUAMOUS EPI CELL:NOT APPLICABLE PMN (WBCs):MANY Unless otherwise specified, Testing Performed by: [address] [address] For Inquires, the Physician may contact the Microbiology department at [phone] ANAEROBIC-AEROBIC CULTURE Preliminary Preliminary MANY [STAPHYLOCOCCUS AUREUS (MRSA)] on 08/29/20 at 1351 STAPHYLOCOCCUS AUREUS (MRSA) ANTIMICROBIAL SUSCEPTIBILITY Preliminary Comment POS JC TYPE 38 STAPHYLOCOCCUS AUREUS (MRSA) ANTIBIOTIC RESULT INTERPRETATION AZITHROMYCIN >4 R CLINDAMYCIN <=0.25 R* CEFOXITIN SCREEN >4 POS CIPROFLOXACIN >2 R CEFTAROLINE 1 S DAPTOMYCIN 1 S ERYTHROMYCIN >4 R GENTAMICIN >8 R INDUCIBLE CLINDAMYCIN >4/0.5 POS LINEZOLID 2 S LEVOFLOXACIN >4 R OXACILLIN >2 R PENICILLIN >2 R* RIFAMPIN <=1 S TRIMETHOPRIM/SULFAMETHOXAZOLE >2/38 R TETRACYCLINE >8 R RUN DATE: 08/30/20 [facility] *LIVE* PAGE 2 RUN TIME: 913 Specimen Inquiry SPEC: [id number] PATIENT: YONIS HAIRSTON [id number] (Mala saab) Procedure Result CONTINUED ON NEXT PAGE RUN DATE: 08/30/20 [facility] *LIVE* PAGE 3 RUN TIME: 0914 Specimen Inquiry SPEC: [id number] PATIENT: YONIS HAIRSTON [id number] (Continued) - SPEC #: [id number] OFE: 08/27/20 STATUS: RES REQ #: [id number] RECD: 08/28/[address]: JUDIE HUBBARD III, DO SOURCE: LEG ENTR: 08/28/[address]: YAN RIOS MD SPDESC: WOUND PULS,BEVERLY De Jesus MD ORDERED: ANAER/AEROB/GS COMMENTS: R LEG SUBCUTANEOUS Procedure Result GRAM STAIN Final Final GRAM POS COCCI CLUSTERS:MODERATE RBC:MODERATE SQUAMOUS EPI CELL:RARE PMN (WBCs):MANY Unless otherwise specified, Testing Performed by: [address] [address] For Inquires, the Physician may contact the Microbiology department at [phone] ANAEROBIC-AEROBIC CULTURE Preliminary Preliminary MANY [STAPHYLOCOCCUS AUREUS (MRSA)] on 08/29/20 at 1351 SEE CULTURE AN663 FOR SUSCEPTIBILITY RESULTS STAPHYLOCOCCUS AUREUS (MRSA) Unless otherwise specified, Testing Performed by: [address] [address] For Inquires, the Physician may contact the Microbiology department at [phone] 36 min pt exam, chart review, > 50% of time spent with exam, chart review, pt care coordination 6 pain improving emperic iv antibiotics Postoperatively, wound care, PT, OT and probably fdc facility. ID CONSULT BLOOD CULTURES Operative procedure: Irrigation and debridement right knee with superficial and deep cultures and retention of hardware 08-28 Procedure Result GRAM STAIN Final Final GRAM POS COCCI CLUSTERS:MODERATE RBC:MANY SQUAMOUS EPI CELL:NOT APPLICABLE PMN (WBCs):MANY Unless otherwise specified, Testing Performed by: [address] [address] For Inquires, the Physician may contact the Microbiology department at [phone] ANAEROBIC-AEROBIC CULTURE Preliminary Preliminary MANY [STAPHYLOCOCCUS AUREUS (MRSA)] on 08/29/20 at 1351 STAPHYLOCOCCUS AUREUS (MRSA) ANTIMICROBIAL SUSCEPTIBILITY Preliminary Comment POS JC TYPE 38 STAPHYLOCOCCUS AUREUS (MRSA) ANTIBIOTIC RESULT INTERPRETATION AZITHROMYCIN >4 R CLINDAMYCIN <=0.25 R* CEFOXITIN SCREEN >4 POS CIPROFLOXACIN >2 R CEFTAROLINE 1 S DAPTOMYCIN 1 S ERYTHROMYCIN >4 R GENTAMICIN >8 R INDUCIBLE CLINDAMYCIN >4/0.5 POS LINEZOLID 2 S LEVOFLOXACIN >4 R OXACILLIN >2 R PENICILLIN >2 R* RIFAMPIN <=1 S TRIMETHOPRIM/SULFAMETHOXAZOLE >2/38 R TETRACYCLINE >8 R RUN DATE: 08/30/20 [facility] *LIVE* PAGE 2 RUN TIME: 913 Specimen Inquiry SPEC: [id number] PATIENT: YONIS HAIRSTON [id number] (Continued) Procedure Result CONTINUED ON NEXT PAGE RUN DATE: 08/30/20 [facility] *LIVE* PAGE 3 RUN TIME: 913 Specimen Inquiry SPEC: [id number] PATIENT: YONIS HAIRSTON [id number] (Mala saab) SPEC #: [id number] OFE: 08/27/20 STATUS: RES REQ #: [id number] RECD: 08/28/[address]: JUDIE HUBBARD III, DO SOURCE: LEG ENTR: 08/28/20 [facility] DR: YAN RIOS MD [facility]: WOUND PULS,BEVERLY De Jesus MD ORDERED: ANAER/AEROB/GS COMMENTS: R LEG SUBCUTANEOUS Procedure Result GRAM STAIN Final Final GRAM POS COCCI CLUSTERS:MODERATE RBC:MODERATE SQUAMOUS EPI CELL:RARE PMN (WBCs):MANY Unless otherwise specified, Testing Performed by: [place] [address] For Inquires, the Physician may contact the Microbiology department at [phone] ANAEROBIC-AEROBIC CULTURE Preliminary Preliminary MANY [STAPHYLOCOCCUS AUREUS (MRSA)] on 08/29/20 at 1351 SEE CULTURE AN663 FOR SUSCEPTIBILITY RESULTS STAPHYLOCOCCUS AUREUS (MRSA) Unless otherwise specified, Testing Performed by: [address] [address] For Inquires, the Physician may contact the Microbiology department at [phone] 26 min pt exam, chart review, > 50% of time spent with exam, chart review, pt care coordination Cont Daptomycin higher dose 10mg/kg daily (08/30) and Rifampin ( 08/30). Avoid IV vancomycin due to BERHANE . monitor CK closely Follow up labs and cultures. 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 09-01 pain improving emperic iv antibiotics Postoperatively, wound care, PT, OT and probably fdc facility. ID CONSULT BLOOD CULTURES Operative procedure: Irrigation and debridement right knee with superficial and deep cultures and retention of hardware 08-28 Procedure Result GRAM STAIN Final Final GRAM POS COCCI CLUSTERS:MODERATE RBC:MANY SQUAMOUS EPI CELL:NOT APPLICABLE PMN (WBCs):MANY Unless otherwise specified, Testing Performed by: [address] [address] For Inquires, the Physician may contact the Microbiology department at [phone] ANAEROBIC-AEROBIC CULTURE Preliminary Preliminary MANY [STAPHYLOCOCCUS AUREUS (MRSA)] on 08/29/20 at 1351 STAPHYLOCOCCUS AUREUS (MRSA) ANTIMICROBIAL SUSCEPTIBILITY Preliminary Comment POS JC TYPE 38 STAPHYLOCOCCUS AUREUS (MRSA) ANTIBIOTIC RESULT INTERPRETATION AZITHROMYCIN >4 R CLINDAMYCIN <=0.25 R* CEFOXITIN SCREEN >4 POS CIPROFLOXACIN >2 R CEFTAROLINE 1 S DAPTOMYCIN 1 S ERYTHROMYCIN >4 R GENTAMICIN >8 R INDUCIBLE CLINDAMYCIN >4/0.5 POS LINEZOLID 2 S LEVOFLOXACIN >4 R OXACILLIN >2 R PENICILLIN >2 R* RIFAMPIN <=1 S TRIMETHOPRIM/SULFAMETHOXAZOLE >2/38 R TETRACYCLINE >8 R RUN DATE: 08/30/20 [facility] *LIVE* PAGE 2 RUN TIME: 913 Specimen Inquiry SPEC: [id number] PATIENT: YONIS HAIRSTON [id number] (Continued) Procedure Result CONTINUED ON NEXT PAGE RUN DATE: 08/30/20 [facility] *LIVE* PAGE 3 RUN TIME: 913 Specimen Inquiry SPEC: [id number] PATIENT: YONIS HAIRSTON [id number] (Continued) SPEC #: [id number] OFE: 08/27/20-2019 STATUS: RES REQ #: [id number] RECD: 08/28/20-[address]: JUDIE HUBBARD III, DO SOURCE: LEG ENTR: 08/28/20-[address]: YAN RIOS MD SPDESC: WOUND PULSBEVERLY MD ORDERED: ANAER/AEROB/GS COMMENTS: R LEG SUBCUTANEOUS ------ ------ Procedure Result GRAM STAIN Final Final GRAM POS COCCI CLUSTERS:MODERATE RBC:MODERATE SQUAMOUS EPI CELL:RARE PMN (WBCs):MANY Unless otherwise specified, Testing Performed by: [address] [address] For Inquires, the Physician may contact the Microbiology department at [phone] ANAEROBIC-AEROBIC CULTURE Preliminary Preliminary MANY [STAPHYLOCOCCUS AUREUS (MRSA)] on 08/29/20 at 1351 SEE CULTURE AN663 FOR SUSCEPTIBILITY RESULTS STAPHYLOCOCCUS AUREUS (MRSA) Unless otherwise specified, Testing Performed by: [address] [address] For Inquires, the Physician may contact the Microbiology department at [phone] - 26 min pt exam, chart review, > 50% of time spent with exam, chart review, pt care coordination Cont Daptomycin higher dose 10mg/kg daily (08/30) and Rifampin ( 08/30). Avoid IV vancomycin due to BERHANE . monitor CK closely Follow up labs and cultures. 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 6 pain improving emperic iv antibiotics Postoperatively, wound care, PT, OT and probably fdc facility. ID CONSULT BLOOD CULTURES Operative procedure: Irrigation and debridement right knee with superficial and deep cultures and retention of hardware 6-18 Procedure Result GRAM STAIN Final Final GRAM POS COCCI CLUSTERS:MODERATE RBC:MANY SQUAMOUS EPI CELL:NOT APPLICABLE PMN (WBCs):MANY Unless otherwise specified, Testing Performed by: [address] [address] For Inquires, the Physician may contact the Microbiology department at [phone] ANAEROBIC-AEROBIC CULTURE Preliminary Preliminary MANY [STAPHYLOCOCCUS AUREUS (MRSA)] on 08/29/20 at 1351 STAPHYLOCOCCUS AUREUS (MRSA) ANTIMICROBIAL SUSCEPTIBILITY Preliminary Comment POS JC TYPE 38 STAPHYLOCOCCUS AUREUS (MRSA) ANTIBIOTIC RESULT INTERPRETATION AZITHROMYCIN >4 R CLINDAMYCIN <=0.25 R* CEFOXITIN SCREEN >4 POS CIPROFLOXACIN >2 R CEFTAROLINE 1 S DAPTOMYCIN 1 S ERYTHROMYCIN >4 R GENTAMICIN >8 R INDUCIBLE CLINDAMYCIN >4/0.5 POS LINEZOLID 2 S LEVOFLOXACIN >4 R OXACILLIN >2 R PENICILLIN >2 R* RIFAMPIN <=1 S TRIMETHOPRIM/SULFAMETHOXAZOLE >2/38 R TETRACYCLINE >8 R RUN DATE: 08/30/20 [facility] *LIVE* PAGE 2 RUN TIME: 913 Specimen Inquiry SPEC: [id number] PATIENT: YONIS HAIRSTON [id number] (Continued) Procedure Result CONTINUED ON NEXT PAGE RUN DATE: 08/30/20 [facility] *LIVE* PAGE 3 RUN TIME: 913 Specimen Inquiry SPEC: [id number] PATIENT: YONIS HAIRSTON [id number] (Continued) SPEC #: [id number] OFE: 08/27/20 STATUS: RES REQ #: [id number] RECD: 08/28/[address]: JUDIE HUBBARD III, DO SOURCE: LEG ENTR: 08/28/[address]: YAN RIOS MD SPDC: WOUND BEVERLY SPENCER MD ORDERED: SHAHEEN/CHAI/KARI COMMENTS: R LEG SUBCUTANEOUS Procedure Result GRAM STAIN Final Final GRAM POS COCCI CLUSTERS:MODERATE RBC:MODERATE SQUAMOUS EPI CELL:RARE PMN (WBCs):MANY Unless otherwise specified, Testing Performed by: [address] [address] For Inquires, the Physician may contact the Microbiology department at [phone] ANAEROBIC-AEROBIC CULTURE Preliminary Preliminary MANY [STAPHYLOCOCCUS AUREUS (MRSA)] on 08/29/20 at 1351 SEE CULTURE AN663 FOR SUSCEPTIBILITY RESULTS STAPHYLOCOCCUS AUREUS (MRSA) Unless otherwise specified, Testing Performed by: [address] [address] For Inquires, the Physician may contact the Microbiology department at [phone] 36 min pt exam, chart review, > 50% of time spent with exam, chart review, pt care coordination Cont Daptomycin higher dose 10mg/kg daily (08/30) and Rifampin ( 08/30). Avoid IV vancomycin due to BERHANE . monitor CK closely Follow up labs and cultures. 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 further surgical plans per orthopedics if pt is a candidate, . Difficult surgical candidate due to femur implant.... Despite aggressive medical management patient is at high risk of limb loss 6-25 pain improving emperic iv antibiotics Postoperatively, wound care, PT, OT and probably fdc facility. ID CONSULT BLOOD CULTURES Operative procedure: Irrigation and debridement right knee with superficial and deep cultures and retention of hardware 6-18 Procedure Result GRAM STAIN Final Final GRAM POS COCCI CLUSTERS:MODERATE RBC:MANY SQUAMOUS EPI CELL:NOT APPLICABLE PMN (WBCs):MANY Unless otherwise specified, Testing Performed by: [address] [address] For Inquires, the Physician may contact the Microbiology department at [phone] ANAEROBIC-AEROBIC CULTURE Preliminary Preliminary MANY [STAPHYLOCOCCUS AUREUS (MRSA)] on 08/29/20 at 1351 STAPHYLOCOCCUS AUREUS (MRSA) ANTIMICROBIAL SUSCEPTIBILITY Preliminary Comment POS JC TYPE 38 STAPHYLOCOCCUS AUREUS (MRSA) ANTIBIOTIC RESULT INTERPRETATION AZITHROMYCIN >4 R CLINDAMYCIN <=0.25 R* CEFOXITIN SCREEN >4 POS CIPROFLOXACIN >2 R CEFTAROLINE 1 S DAPTOMYCIN 1 S ERYTHROMYCIN >4 R GENTAMICIN >8 R INDUCIBLE CLINDAMYCIN >4/0.5 POS LINEZOLID 2 S LEVOFLOXACIN >4 R OXACILLIN >2 R PENICILLIN >2 R* RIFAMPIN <=1 S TRIMETHOPRIM/SULFAMETHOXAZOLE >2/38 R TETRACYCLINE >8 R RUN DATE: 08/30/20 [facility] *LIVE* PAGE 2 RUN TIME: 09 Specimen Inquiry SPEC: [id number] PATIENT: YONIS HAIRSTON [id number] (Continued) - Procedure Result CONTINUED ON NEXT PAGE RUN DATE: 08/30/20 [facility] *LIVE* PAGE 3 RUN TIME: 913 Specimen Inquiry SPEC: [id number] PATIENT: YONIS HAIRSTON [id number] (Continued) SPEC #: [id number] OFE: 08/27/20 STATUS: RES REQ #: [id number] RECD: 08/28/[address]: JUDIE HUBBARD III, DO SOURCE: LEG ENTR: 08/28/[address]: YAN RIOS MD [facility]: WOUND BEVERLY SPENCER MD ORDERED: SHAHEEN/CHAI/KARI COMMENTS: R LEG SUBCUTANEOUS --- --------- Procedure Result GRAM STAIN Final Final GRAM POS COCCI CLUSTERS:MODERATE RBC:MODERATE SQUAMOUS EPI CELL:RARE PMN (WBCs):MANY Unless otherwise specified, Testing Performed by: [address] [address] For Inquires, the Physician may contact the Microbiology department at [phone] ANAEROBIC-AEROBIC CULTURE Preliminary Preliminary MANY [STAPHYLOCOCCUS AUREUS (MRSA)] on 08/29/20 at 1351 SEE CULTURE AN663 FOR SUSCEPTIBILITY RESULTS STAPHYLOCOCCUS AUREUS (MRSA) Unless otherwise specified, Testing Performed by: [address] [address] For Inquires, the Physician may contact the Microbiology department at [phone] 26 min pt exam, chart review, > 50% of time spent with exam, chart review, pt care coordination Cont Daptomycin higher dose 10mg/kg daily (08/30) and Rifampin ( 08/30). Avoid IV vancomycin due to BERHANE . monitor CK closely Follow up labs and cultures. 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 further surgical plans per orthopedics if pt is a candidate, . Difficult surgical candidate due to femur implant.... Despite aggressive medical management patient is at high risk of limb loss 6-25 pain improving emperic iv antibiotics Postoperatively, wound care, PT, OT and probably fdc facility. ID CONSULT BLOOD CULTURES Operative procedure: Irrigation and debridement right knee with superficial and deep cultures and retention of hardware 6-18 Procedure Result GRAM STAIN Final Final GRAM POS COCCI CLUSTERS:MODERATE RBC:MANY SQUAMOUS EPI CELL:NOT APPLICABLE PMN (WBCs):MANY Unless otherwise specified, Testing Performed by: [address] [address] For Inquires, the Physician may contact the Microbiology department at [phone] ANAEROBIC-AEROBIC CULTURE Preliminary Preliminary MANY [STAPHYLOCOCCUS AUREUS (MRSA)] on 08/29/20 at 1351 STAPHYLOCOCCUS AUREUS (MRSA) ANTIMICROBIAL SUSCEPTIBILITY Preliminary Comment POS JC TYPE 38 STAPHYLOCOCCUS AUREUS (MRSA) ANTIBIOTIC RESULT INTERPRETATION AZITHROMYCIN >4 R CLINDAMYCIN <=0.25 R* CEFOXITIN SCREEN >4 POS CIPROFLOXACIN >2 R CEFTAROLINE 1 S DAPTOMYCIN 1 S ERYTHROMYCIN >4 R GENTAMICIN >8 R INDUCIBLE CLINDAMYCIN >4/0.5 POS LINEZOLID 2 S LEVOFLOXACIN >4 R OXACILLIN >2 R PENICILLIN >2 R* RIFAMPIN <=1 S TRIMETHOPRIM/SULFAMETHOXAZOLE >2/38 R TETRACYCLINE >8 R RUN DATE: 08/30/20 [facility] *LIVE* PAGE 2 RUN TIME: 913 Specimen Inquiry SPEC: [id number] PATIENT: YONIS HAIRSTON [id number] (Continued) Procedure Result CONTINUED ON NEXT PAGE RUN DATE: 08/30/20 [facility] *LIVE* PAGE 3 RUN TIME: 913 Specimen Inquiry SPEC: [id number] PATIENT: YONIS HAIRSTON [id number] (Continued) SPEC #: [id number] OFE: 08/27/20 STATUS: RES REQ #: [id number] RECD: 08/28/[address]: JUDIE HUBBARD III, DO SOURCE: LEG ENTR: 08/28/[address]: YAN RIOS MD [facility]: WOUND PULS,BEVERLY De Jesus MD ORDERED: ANAER/AEROB/GS COMMENTS: R LEG SUBCUTANEOUS Procedure Result GRAM STAIN Final Final GRAM POS COCCI CLUSTERS:MODERATE RBC:MODERATE SQUAMOUS EPI CELL:RARE PMN (WBCs):MANY Unless otherwise specified, Testing Performed by: [address] [address] For Inquires, the Physician may contact the Microbiology department at [phone] ANAEROBIC-AEROBIC CULTURE Preliminary Preliminary MANY [STAPHYLOCOCCUS AUREUS (MRSA)] on 08/29/20 at 1351 SEE CULTURE AN663 FOR SUSCEPTIBILITY RESULTS STAPHYLOCOCCUS AUREUS (MRSA) Unless otherwise specified, Testing Performed by: [address] [address] For Inquires, the Physician may contact the Microbiology department at [phone] 26 min pt exam, chart review, > 50% of time spent with exam, chart review, pt care coordination Cont Daptomycin higher dose 10mg/kg daily (08/30) and Rifampin ( 08/30). Avoid IV vancomycin due to BERHANE . monitor CK closely Follow up labs and cultures. 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 further surgical plans per orthopedics if pt is a candidate, . Difficult surgical candidate due to femur implant.... Despite aggressive medical management patient is at high risk of limb loss family are decided on this could proceed with surgical treatment accordingly and would have to arrange the materials likely with surgery 6-25 pain improving emperic iv antibiotics Postoperatively, wound care, PT, OT and probably fdc facility. ID CONSULT BLOOD CULTURES Operative procedure: Irrigation and debridement right knee with superficial and deep cultures and retention of hardware 08-28 Procedure Result GRAM STAIN Final Final GRAM POS COCCI CLUSTERS:MODERATE RBC:MANY SQUAMOUS EPI CELL:NOT APPLICABLE PMN (WBCs):MANY Unless otherwise specified, Testing Performed by: [address] [address] For Inquires, the Physician may contact the Microbiology department at [phone] ANAEROBIC-AEROBIC CULTURE Preliminary Preliminary MANY [STAPHYLOCOCCUS AUREUS (MRSA)] on 08/29/20 at 1351 STAPHYLOCOCCUS AUREUS (MRSA) ANTIMICROBIAL SUSCEPTIBILITY Preliminary Comment POS JC TYPE 38 STAPHYLOCOCCUS AUREUS (MRSA) ANTIBIOTIC RESULT INTERPRETATION AZITHROMYCIN >4 R CLINDAMYCIN <=0.25 R* CEFOXITIN SCREEN >4 POS CIPROFLOXACIN >2 R CEFTAROLINE 1 S DAPTOMYCIN 1 S ERYTHROMYCIN >4 R GENTAMICIN >8 R INDUCIBLE CLINDAMYCIN >4/0.5 POS LINEZOLID 2 S LEVOFLOXACIN >4 R OXACILLIN >2 R PENICILLIN >2 R* RIFAMPIN <=1 S TRIMETHOPRIM/SULFAMETHOXAZOLE >2/38 R TETRACYCLINE >8 R RUN DATE: 08/30/20 [facility] *LIVE* PAGE 2 RUN TIME: 913 Specimen Inquiry SPEC: [id number] PATIENT: YONIS HAIRSTON [id number] (Continued) Procedure Result CONTINUED ON NEXT PAGE - RUN DATE: 08/30/20 [facility] *LIVE* PAGE 3 RUN TIME: 0914 Specimen Inquiry - SPEC: [id number] PATIENT: YONIS HAIRSTON [id number] (Continued) SPEC #: [id number] OFE: 08/27/20 STATUS: RES REQ #: [id number] RECD: 08/28/[address]: JUDIE HUBBARD III, DO SOURCE: LEG ENTR: 08/28/20 [facility] DR: YAN RIOS MD SPDESC: WOUND PULS,BEVERLY De Jesus MD ORDERED: ANAER/AEROB/GS COMMENTS: R LEG SUBCUTANEOUS Procedure Result GRAM STAIN Final Final GRAM POS COCCI CLUSTERS:MODERATE RBC:MODERATE SQUAMOUS EPI CELL:RARE PMN (WBCs):MANY Unless otherwise specified, Testing Performed by: [address] [place] [address] For Inquires, the Physician may contact the Microbiology department at [phone] ANAEROBIC-AEROBIC CULTURE Preliminary Preliminary MANY [STAPHYLOCOCCUS AUREUS (MRSA)] on 08/29/20 at 1351 SEE CULTURE AN663 FOR SUSCEPTIBILITY RESULTS STAPHYLOCOCCUS AUREUS (MRSA) Unless otherwise specified, Testing Performed by: [facility] [address] [place] [address] For Inquires, the Physician may contact the Microbiology department at [phone] 26 min pt exam, chart review, > 50% of time spent with exam, chart review, pt care coordination C 6-27 pain improving emperic iv antibiotics Postoperatively, wound care, PT, OT and probably fdc facility. ID CONSULT BLOOD CULTURES Operative procedure: Irrigation and debridement right knee with superficial and deep cultures and retention of hardware 6-18 Procedure Result - GRAM STAIN Final Final GRAM POS COCCI CLUSTERS:MODERATE RBC:MANY SQUAMOUS EPI CELL:NOT APPLICABLE PMN (WBCs):MANY Unless otherwise specified, Testing Performed by: [facility] [address] [place] [address] For Inquires, the Physician may contact the Microbiology department at [phone] ANAEROBIC-AEROBIC CULTURE Preliminary Preliminary MANY [STAPHYLOCOCCUS AUREUS (MRSA)] on 08/29/20 at 1351 STAPHYLOCOCCUS AUREUS (MRSA) ANTIMICROBIAL SUSCEPTIBILITY Preliminary Comment POS JC TYPE 38 STAPHYLOCOCCUS AUREUS (MRSA) ANTIBIOTIC RESULT INTERPRETATION AZITHROMYCIN >4 R CLINDAMYCIN <=0.25 R* CEFOXITIN SCREEN >4 POS CIPROFLOXACIN >2 R CEFTAROLINE 1 S DAPTOMYCIN 1 S ERYTHROMYCIN >4 R GENTAMICIN >8 R INDUCIBLE CLINDAMYCIN >4/0.5 POS LINEZOLID 2 S LEVOFLOXACIN >4 R OXACILLIN >2 R PENICILLIN >2 R* RIFAMPIN <=1 S TRIMETHOPRIM/SULFAMETHOXAZOLE >2/38 R TETRACYCLINE >8 R RUN DATE: 08/30/20 [facility] *LIVE* PAGE 2 RUN TIME: 913 Specimen Inquiry SPEC: [id number] PATIENT: YONIS HAIRSTON Francine [id number] (Continued) Procedure Result CONTINUED ON NEXT PAGE RUN DATE: 08/30/20 [facility] *LIVE* PAGE 3 RUN TIME: 913 Specimen Inquiry SPEC: [id number] PATIENT: YONIS HAIRSTON [id number] (Continued) SPEC #: [id number] OFE: 08/27/20-2019 STATUS: RES REQ #: [id number] RECD: 08/28/20-[address]: JUDIE HUBBARD III DO SOURCE: LEG ENTR: 08/28/20-[address]: YAN RIOS MD [facility]: WOUND JOHANNA,BEVERLY De Jesus MD ORDERED: SHAHEEN/CHAI/KARI COMMENTS: R LEG SUBCUTANEOUS Procedure Result GRAM STAIN Final Final GRAM POS COCCI CLUSTERS:MODERATE RBC:MODERATE SQUAMOUS EPI CELL:RARE PMN (WBCs):MANY Unless otherwise specified, Testing Performed by: [place] [address] For Inquires, the Physician may contact the Microbiology department at [phone] ANAEROBIC-AEROBIC CULTURE Preliminary Preliminary MANY [STAPHYLOCOCCUS AUREUS (MRSA)] on 08/29/20 at 1351 SEE CULTURE AN663 FOR SUSCEPTIBILITY RESULTS STAPHYLOCOCCUS AUREUS (MRSA) Unless otherwise specified, Testing Performed by: [address] [address] For Inquires, the Physician may contact the Microbiology department at [phone] 36 min pt exam, chart review, > 50% of time spent with exam, chart review, pt care coordination Cont Daptomycin higher dose 10mg/kg daily (08/30) and Rifampin ( 08/30). Avoid IV vancomycin due to BERHANE . monitor CK closely Follow up labs and cultures. 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 further surgical plans per orthopedics if pt is a candidate, . Difficult surgical candidate due to femur implant.... Despite aggressive medical management patient is at high risk of limb loss family are decided on this could proceed with surgical treatment accordingly and would have to arrange the materials likely with surgery Cont Daptomycin 10mg/kg daily (08/30) and Rifampin ( 08/30), rifampin is for [facility] to assist with drug drug interactions for rifampin with other meds 6-27 pain improving emperic iv antibiotics Postoperatively, wound care, PT, OT and probably fdc facility. ID CONSULT BLOOD CULTURES Operative procedure: Irrigation and debridement right knee with superficial and deep cultures and retention of hardware 618 Procedure Result GRAM STAIN Final Final GRAM POS COCCI CLUSTERS:MODERATE RBC:MANY SQUAMOUS EPI CELL:NOT APPLICABLE PMN (WBCs):MANY Unless otherwise specified, Testing Performed by: [address] [address] For Inquires, the Physician may contact the Microbiology department at [phone] ANAEROBIC-AEROBIC CULTURE Preliminary Preliminary MANY [STAPHYLOCOCCUS AUREUS (MRSA)] on 08/29/20 at 1351 STAPHYLOCOCCUS AUREUS (MRSA) ANTIMICROBIAL SUSCEPTIBILITY Preliminary Comment POS JC TYPE 38 STAPHYLOCOCCUS AUREUS (MRSA) ANTIBIOTIC RESULT INTERPRETATION AZITHROMYCIN >4 R CLINDAMYCIN <=0.25 R* CEFOXITIN SCREEN >4 POS CIPROFLOXACIN >2 R CEFTAROLINE 1 S DAPTOMYCIN 1 S ERYTHROMYCIN >4 R GENTAMICIN >8 R INDUCIBLE CLINDAMYCIN >4/0.5 POS LINEZOLID 2 S LEVOFLOXACIN >4 R OXACILLIN >2 R PENICILLIN >2 R* RIFAMPIN <=1 S TRIMETHOPRIM/SULFAMETHOXAZOLE >2/38 R TETRACYCLINE >8 R ont Daptomycin higher dose 10mg/kg daily (08/30) and Rifampin ( 08/30). Avoid IV vancomycin due to BERHANE . monitor CK closely Follow up labs and cultures. 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 further surgical plans per orthopedics if pt is a candidate, . Difficult surgical candidate due to femur implant.... Despite aggressive medical management patient is at high risk of limb loss History of Present Illness History of Present Illness 09/09 , Dapto planned for 6 weeks, discussed wt ID Vasc following, may need angio PICC was placed plan to send to acute rehab soon cotn PT and OT Vitals/I&O Vitals/I&O: Vital Signs Date Time Temp Pulse Resp B/P (MAP) Pulse Ox O2 Delivery O2 Flow Rate FiO2 09/09/20 11:00 98.7 78 18 116/45 (68) 96 Room Air 98.7 I & O 09/08/20 09/08/20 09/09/20 15:00 23:00 07:00 Intake Total 120 ml 480 ml Output Total 200 ml Balance -80 ml 480 ml Physical Exam Physical Exam: GENERAL: Alert, oriented x 3, pleasant female, lying in bed comfortably, in no acute distress. HEENT: Normocephalic, atraumatic. Anicteric. NECK: Supple. No JVD. LUNGS: Clear bilaterally. No wheezing. HEART: S1, S2. No gallops or murmurs. ABDOMEN: Soft, obese, nontender, nondistended. EXTREMITIES: Right lower extremity swelling present. Dressing in place not taken down NEUROLOGIC: Alert, oriented x 3, grossly nonfocal. PSYCHIATRIC: Calm and cooperative. DERMATOLOGIC: Warm, dry, no generalized rash. PIV looks clean. General: Alert, Oriented X3, Cooperative, No acute distress Heart: Regular rate Lungs: Clear Abdomen: Normal bowel sounds, Soft Extremities: No cyanosis Assessment and Plan Assessmemt and Plan Problems Medical Problems: (1) Cellulitis Status: Acute Comment Review of Relevant I have reviewed the following items fiorella (where applicable) has been applied. Justifications for Admission Other Justification LOLI VILLEGAS MD Sep 09, 2020 13:13
[2020-09-09 15:00] VITALS: BP 94/49
[2020-09-09] MEDS: ACETAMINOPHEN 325 MG TABLET. PO PRN ×2 (15:02→22:30)
[2020-09-09 19:00] VITALS: BP 100/51
[2020-09-09] MEDS: SIMVASTATIN 20 MG TABLET PO SCH (21:09)
[2020-09-09 23:00] VITALS: BP 116/46
[2020-09-10 03:00] VITALS: BP 95/42
[2020-09-10 03:55] LABS: BASO # 0.1 x10^3/uL (0.0-0.2); BASO % 1 % (0-3); EOS # 0.2 x10^3/uL (0.0-0.7); EOS % 2 % (0-3); LYMPH # 2.3 x10^3/uL (1.0-4.8); LYMPH % 29 % (24-48); MEAN CORPUSCULAR HEMOGLOBIN 31 pg (25-35); MEAN CORPUSCULAR HGB CONC 33 g/dL (31-37); MEAN CORPUSCULAR VOLUME 93 fL (79-100); MONO # 1.8 x10^3/uL (0.0-1.1); MONO % 22 % (0-9); NEUT # 3.7 x10^3/uL (1.8-7.7); NEUT % 46 % (31-73); PLATELET COUNT 317 x10^3/uL (140-400); RED CELL DISTRIBUTION WIDTH 15.6 % (11.5-14.5); WHITE BLOOD COUNT 8.1 x10^3/uL (4.0-11.0)
[2020-09-10 05:45] LABS: ALBUMIN 1.6 g/dL (3.4-5.0); ALBUMIN/GLOBULIN RATIO 0.5 (1.0-1.7); CALCIUM 8.1 mg/dL (8.5-10.1); GFR 52.2; POTASSIUM 4.3 mmol/L (3.5-5.1); TOTAL BILIRUBIN 0.4 mg/dL (0.2-1.0); TOTAL PROTEIN 5.1 g/dL (6.4-8.2)
[2020-09-10] MEDS: LEVOTHYROXINE 88 MCG TABLET PO SCH (06:56)
[2020-09-10 07:00] VITALS: BP 169/81
[2020-09-10] MEDS: DOCUSATE SODIUM 100 MG CAPSULE. PO SCH ×2 (08:56→20:16)
[2020-09-10] MEDS: OXYBUTYNIN CHLORIDE 5 MG TABLET PO SCH ×3 (08:56→20:07)
[2020-09-10] MEDS: LACTOBACILLUS RHAMNOSUS GG 1 CAPSULE. PO SCH ×2 (08:56→20:08)
[2020-09-10] MEDS: CHOLECALCIFEROL (VITAMIN D3) 1,000 UNIT TABLET PO SCH (08:56)
[2020-09-10] MEDS: riFAMpin 300 MG CAPSULE. PO SCH ×2 (08:56→20:08)
[2020-09-10] MEDS: PANTOPRAZOLE 40 MG TABLET.DR. PO SCH (08:56)
[2020-09-10] MEDS: POLYETHYLENE GLYCOL 3350 17 GM PACKET. PO SCH (08:57)
[2020-09-10] MEDS: MULTIVITAMIN with MINERAL TABLET. PO SCH (08:57)
--- NOTE | 2020-09-10 09:11 | PDOC ---
Infectious Disease Note Subjective Subjective Patient without complaints Postop pain is under control Denies fever, nausea, vomiting, shortness of breath, diarrhea, abdominal pain, rash Otherwise as above Vital Sign Vital Signs Vital Signs Date Time Temp Pulse Resp B/P (MAP) Pulse Ox O2 Delivery O2 Flow Rate FiO2 09/10/20 07:00 97.6 80 16 169/81 (110) 96 Room Air 97.6 Physical Exam PHYSICAL EXAM GENERAL: Alert, oriented x 3, pleasant female, lying in bed comfortably, in no acute distress. HEENT: Normocephalic, atraumatic. Anicteric. NECK: Supple. No JVD. LUNGS: Clear bilaterally. No wheezing. HEART: S1, S2. No gallops or murmurs. ABDOMEN: Soft, obese, nontender, nondistended. EXTREMITIES: Right lower extremity swelling present. Dressing in place not taken down NEUROLOGIC: Alert, oriented x 3, grossly nonfocal. PSYCHIATRIC: Calm and cooperative. DERMATOLOGIC: Warm, dry, no generalized rash. PICC site good Labs Lab Laboratory Tests Test 09/10/20 03:35 White Blood Count 8.1 x10^3/uL (4.0-11.0) Red Blood Count 2.90 x10^6/uL (3.50-5.40) Hemoglobin 9.0 g/dL (12.0-15.5) Hematocrit 27.0 % (36.0-47.0) Mean Corpuscular Volume 93 fL (79-100) Mean Corpuscular Hemoglobin 31 pg (25-35) Mean Corpuscular Hemoglobin Concent 33 g/dL (31-37) Red Cell Distribution Width 15.6 % (11.5-14.5) Platelet Count 317 x10^3/uL (140-400) Neutrophils (%) (Auto) 46 % (31-73) Lymphocytes (%) (Auto) 29 % (24-48) Monocytes (%) (Auto) 22 % (0-9) Eosinophils (%) (Auto) 2 % (0-3) Basophils (%) (Auto) 1 % (0-3) Neutrophils # (Auto) 3.7 x10^3/uL (1.8-7.7) Lymphocytes # (Auto) 2.3 x10^3/uL (1.0-4.8) Monocytes # (Auto) 1.8 x10^3/uL (0.0-1.1) Eosinophils # (Auto) 0.2 x10^3/uL (0.0-0.7) Basophils # (Auto) 0.1 x10^3/uL (0.0-0.2) Sodium Level 136 mmol/L (136-145) Potassium Level 4.3 mmol/L (3.5-5.1) Chloride Level 103 mmol/L (98-107) Carbon Dioxide Level 29 mmol/L (21-32) Anion Gap 4 (6-14) Blood Urea Nitrogen 27 mg/dL (7-20) Creatinine 1.0 mg/dL (0.6-1.0) Estimated GFR (Cockcroft-Gault) 52.2 BUN/Creatinine Ratio 27 (6-20) Glucose Level 109 mg/dL (70-99) Calcium Level 8.1 mg/dL (8.5-10.1) Total Bilirubin 0.4 mg/dL (0.2-1.0) Aspartate Amino Transf (AST/SGOT) 12 U/L (15-37) Alanine Aminotransferase (ALT/SGPT) 15 U/L (14-59) Alkaline Phosphatase 109 U/L (46-116) Total Protein 5.1 g/dL (6.4-8.2) Albumin 1.6 g/dL (3.4-5.0) Albumin/Globulin Ratio 0.5 (1.0-1.7) Micro GRAM STAIN Final Final GRAM POS COCCI CLUSTERS:MODERATE RBC:MANY SQUAMOUS EPI CELL:NOT APPLICABLE PMN (WBCs):MANY Unless otherwise specified, Testing Performed by: [address] [address] For Inquires, the Physician may contact the Microbiology department at [phone] ANAEROBIC-AEROBIC CULTURE Final Final MANY [STAPHYLOCOCCUS AUREUS (MRSA)] on 08/29/20 at 1351 NO ANAEROBIC ORGANISMS ISOLATED on 09/02/20 at 0828 STAPHYLOCOCCUS AUREUS (MRSA) ANTIMICROBIAL SUSCEPTIBILITY Final Comment POS JC TYPE 38 STAPHYLOCOCCUS AUREUS (MRSA) ANTIBIOTIC RESULT INTERPRETATION AZITHROMYCIN >4 R CLINDAMYCIN <=0.25 R* CEFOXITIN SCREEN >4 POS CIPROFLOXACIN >2 R CEFTAROLINE 1 S DAPTOMYCIN 1 S ERYTHROMYCIN >4 R GENTAMICIN >8 R INDUCIBLE CLINDAMYCIN >4/0.5 POS LINEZOLID 2 S LEVOFLOXACIN >4 R OXACILLIN >2 R PENICILLIN >2 R* RIFAMPIN <=1 S TRIMETHOPRIM/SULFAMETHOXAZOLE >2/38 R RUN DATE: 09/02/20 [facility] *LIVE* PAGE 2 RUN TIME: 0832 Specimen Inquiry SPEC: [id number] PATIENT: YONIS HAIRSTON [id number] (Continued) Procedure Result CONTINUED ON NEXT PAGE RUN DATE: 09/02/20 [facility] *LIVE* PAGE 3 RUN TIME: 0832 Specimen Inquiry SPEC: [id number] PATIENT: LEO HAIRSTONAPRIL Escamilla [id number] (Continued) Procedure Result ------- ----- ANTIMICROBIAL SUSCEPTIBILITY Final (continued) TETRACYCLINE >8 R VANCOMYCIN 1 S Unless otherwise specified, Testing Performed by: [address] [address] For Inquires, the Physician may contact the Microbiology department at [phone] Objective Assessment MRSA Complicated RT Knee arthroplasty infection ( R to bactrim and Doxycycline, S to Rifampin) 1.. Right knee postop site drainage,hematoma with infection Status post synovial aspirate on 08/27/2020, WBC 2100, RBC 102,000, 98%PMNs. Cult MRSA 2. MRSA Right knee periprosthetic joint infection. S/P Irrigation and debridement right knee with superficial and deep cultures and retention of hardware Jt Fluid cultures done per DR Rossi + MRSA on 08/28 and then explant on 09/04 Subcut tissue cult positive for MRSA 3. Fever resolved 4. 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 5. Supracondylar fracture just above the knee joint 6. Status post removal of the components and placement of distal femoral replacement with a rotating hinge construct for periprosthetic distal femur fracture above well-fixated right total knee arthroplasty, 08/01/2020. 7. 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 8. Degenerative joint disease. 9. Bandemia. 10. Lactic acidosis. 11. Hypertension/hyperlipidemia. 12. History of chronic kidney disease. Pt refused for right above-knee ampuation so underwent salvage therapy with September 04 2020 Right knee infection with distal femoral replacement rotating-hinge knee implant present Underwent Explantation of femoral component and hinge portion, fixation of a distal tibial shaft fracture and placement of an antibiotic rigid spacer Complications noted tibial shaft fracture was noted with attempted removal of tibial component and fixated Knee hardware in place No cultures available from September 04, 2020 Plan Plan of Care Patient underwent complicated surgery on September 04, 2020 Operative note reviewed Discussed with Dr. Rossi Cont Daptomycin 10mg/kg daily (08/30) and Rifampin ( 08/30), rifampin is for synergy only Pharmacy to assist with drug drug interactions for rifampin with other meds Follow up labs and cultures. Minocycline sensitive though JC 4 PICC line Wound care as directed by Orthopedics. PT and OT as directed Continue supportive care. Overall prognosis poor YAN RIOS MD Sep 10, 2020 09:11
--- NOTE | 2020-09-10 10:01 | PDOC ---
PROGRESS NOTES Date of Service: DATE: 09/10/20 TIME: 10:01 Chief Complaint Chief Complaint ASSESSMENT Right knee swelling and discharge and pain after 2 recent knee replacements. Ms. Hairston is a 89 old female periprosthetic distal femur fracture above well fixated right total knee arthroplasty with minimal bone available for distal fixation. JULY 2020 She had removal of components and placement of a distal femoral replacement with rotating hinge construct. FEVER T MAX 101.6F 6-17 SEPSIS PLAN ADMIT hold off on antibiotics until he takes the patient to surgery Postoperatively, she is going to need wound care, PT, OT and probably chcf facility. ID CONSULT BLOOD CULTURES Operative procedure: Irrigation and debridement right knee with superficial and deep cultures and retention of hardware 6-18 6-18 hold off on antibiotics until he takes the patient to surgery Postoperatively, she is going to need wound care, PT, OT and probably chcf facility. ID CONSULT BLOOD CULTURES Operative procedure: Irrigation and debridement right knee with superficial and deep cultures and retention of hardware 6-18 37 min pt exam, chart review, > 50% of time spent with exam, chart review, pt care coordination 6-19 emperic iv antibiotics Postoperatively, she is going to need wound care, PT, OT and probably chcf facility. ID CONSULT BLOOD CULTURES Operative procedure: Irrigation and debridement right knee with superficial and deep cultures and retention of hardware 6-18 38 min pt exam, chart review, > 50% of time spent with exam, chart review, pt care coordination 6-20 pain improving emperic iv antibiotics Postoperatively, wound care, PT, OT and probably chcf facility. ID CONSULT BLOOD CULTURES Operative procedure: Irrigation and debridement right knee with superficial and deep cultures and retention of hardware 6-18 Procedure Result GRAM STAIN Final Final GRAM POS COCCI CLUSTERS:MODERATE RBC:MANY SQUAMOUS EPI CELL:NOT APPLICABLE PMN (WBCs):MANY Unless otherwise specified, Testing Performed by: [address] [address] For Inquires, the Physician may contact the Microbiology department at [phone] ANAEROBIC-AEROBIC CULTURE Preliminary Preliminary MANY [STAPHYLOCOCCUS AUREUS (MRSA)] on 08/29/20 at 1351 STAPHYLOCOCCUS AUREUS (MRSA) ANTIMICROBIAL SUSCEPTIBILITY Preliminary Comment POS JC TYPE 38 STAPHYLOCOCCUS AUREUS (MRSA) ANTIBIOTIC RESULT INTERPRETATION AZITHROMYCIN >4 R CLINDAMYCIN <=0.25 R* CEFOXITIN SCREEN >4 POS CIPROFLOXACIN >2 R CEFTAROLINE 1 S DAPTOMYCIN 1 S ERYTHROMYCIN >4 R GENTAMICIN >8 R INDUCIBLE CLINDAMYCIN >4/0.5 POS LINEZOLID 2 S LEVOFLOXACIN >4 R OXACILLIN >2 R PENICILLIN >2 R* RIFAMPIN <=1 S TRIMETHOPRIM/SULFAMETHOXAZOLE >2/38 R TETRACYCLINE >8 R RUN DATE: 08/30/20 [facility] *LIVE* PAGE 2 RUN TIME: 913 Specimen Inquiry SPEC: [id number] PATIENT: MARIKAYONIS [id number] (Continued) Procedure Result CONTINUED ON NEXT PAGE RUN DATE: 08/30/20 [facility] *LIVE* PAGE 3 RUN TIME: 0914 Specimen Inquiry SPEC: [id number] PATIENT: YONIS HAIRSTON [id number] (Continued) SPEC #: [id number] OFE: 08/27/20 STATUS: RES REQ #: [id number] RECD: 08/28/[address]: JUDIE HUBBARD III, DO SOURCE: LEG ENTR: 08/28/[address]: [facility] De Jesus MD ORDERED: ANAER/AEROB/GS COMMENTS: R LEG SUBCUTANEOUS --------- --- Procedure Result GRAM STAIN Final Final GRAM POS COCCI CLUSTERS:MODERATE RBC:MODERATE SQUAMOUS EPI CELL:RARE PMN (WBCs):MANY Unless otherwise specified, Testing Performed by: [address] [address] For Inquires, the Physician may contact the Microbiology department at [phone] ANAEROBIC-AEROBIC CULTURE Preliminary Preliminary MANY [STAPHYLOCOCCUS AUREUS (MRSA)] on 08/29/20 at 1351 SEE CULTURE AN663 FOR SUSCEPTIBILITY RESULTS STAPHYLOCOCCUS AUREUS (MRSA) Unless otherwise specified, Testing Performed by: [facility] [address] [place] [address] For Inquires, the Physician may contact the Microbiology department at [phone] ---- -------- 36 min pt exam, chart review, > 50% of time spent with exam, chart review, pt care coordination 6-21 pain improving emperic iv antibiotics Postoperatively, wound care, PT, OT and probably chcf facility. ID CONSULT BLOOD CULTURES Operative procedure: Irrigation and debridement right knee with superficial and deep cultures and retention of hardware 18 Procedure Result GRAM STAIN Final Final GRAM POS COCCI CLUSTERS:MODERATE RBC:MANY SQUAMOUS EPI CELL:NOT APPLICABLE PMN (WBCs):MANY Unless otherwise specified, Testing Performed by: [facility] [address] [place] [address] For Inquires, the Physician may contact the Microbiology department at [phone] ANAEROBIC-AEROBIC CULTURE Preliminary Preliminary MANY [STAPHYLOCOCCUS AUREUS (MRSA)] on 06/19/21 at 1351 STAPHYLOCOCCUS AUREUS (MRSA) ANTIMICROBIAL SUSCEPTIBILITY Preliminary Comment POS JC TYPE 38 STAPHYLOCOCCUS AUREUS (MRSA) ANTIBIOTIC RESULT INTERPRETATION AZITHROMYCIN >4 R CLINDAMYCIN <=0.25 R* CEFOXITIN SCREEN >4 POS CIPROFLOXACIN >2 R CEFTAROLINE 1 S DAPTOMYCIN 1 S ERYTHROMYCIN >4 R GENTAMICIN >8 R INDUCIBLE CLINDAMYCIN >4/0.5 POS LINEZOLID 2 S LEVOFLOXACIN >4 R OXACILLIN >2 R PENICILLIN >2 R* RIFAMPIN <=1 S TRIMETHOPRIM/SULFAMETHOXAZOLE >2/38 R TETRACYCLINE >8 R RUN DATE: 08/30/20 [facility] *LIVE* PAGE 2 RUN TIME: 913 Specimen Inquiry SPEC: [id number] PATIENT: YONIS HAIRSTON [id number] (Continued) ------ ------ Procedure Result CONTINUED ON NEXT PAGE RUN DATE: 08/30/20 [facility] *LIVE* PAGE 3 RUN TIME: 913 Specimen Inquiry SPEC: [id number] PATIENT: YONIS HAIRSTON [id number] (Continued) SPEC #: [id number] OFE: 08/27/20 STATUS: RES REQ #: [id number] RECD: 08/28/[address]: JUDIE HUBBARD III, DO SOURCE: LEG ENTR: 08/28/[address]: YAN RIOS MD [facility]: WOUND PULS,BEVERLY De Jesus MD ORDERED: ANAER/AERERIC/GS COMMENTS: R LEG SUBCUTANEOUS Procedure Result GRAM STAIN Final Final GRAM POS COCCI CLUSTERS:MODERATE RBC:MODERATE SQUAMOUS EPI CELL:RARE PMN (WBCs):MANY Unless otherwise specified, Testing Performed by: [address] [address] For Inquires, the Physician may contact the Microbiology department at [phone] ANAEROBIC-AEROBIC CULTURE Preliminary Preliminary MANY [STAPHYLOCOCCUS AUREUS (MRSA)] on 08/29/20 at 1351 SEE CULTURE AN663 FOR SUSCEPTIBILITY RESULTS STAPHYLOCOCCUS AUREUS (MRSA) Unless otherwise specified, Testing Performed by: [address] [address] For Inquires, the Physician may contact the Microbiology department at [phone] 26 min pt exam, chart review, > 50% of time spent with exam, chart review, pt care coordination Cont Daptomycin higher dose 10mg/kg daily (08/30) and Rifampin ( 08/30). Avoid IV vancomycin due to BERHANE . monitor CK closely Follow up labs and cultures. 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 6 pain improving emperic iv antibiotics Postoperatively, wound care, PT, OT and probably chcf facility. ID CONSULT BLOOD CULTURES Operative procedure: Irrigation and debridement right knee with superficial and deep cultures and retention of hardware 08-28 Procedure Result GRAM STAIN Final Final GRAM POS COCCI CLUSTERS:MODERATE RBC:MANY SQUAMOUS EPI CELL:NOT APPLICABLE PMN (WBCs):MANY Unless otherwise specified, Testing Performed by: [address] [address] For Inquires, the Physician may contact the Microbiology department at [phone] ANAEROBIC-AEROBIC CULTURE Preliminary Preliminary MANY [STAPHYLOCOCCUS AUREUS (MRSA)] on 08/29/20 at 1351 STAPHYLOCOCCUS AUREUS (MRSA) ANTIMICROBIAL SUSCEPTIBILITY Preliminary Comment POS JC TYPE 38 STAPHYLOCOCCUS AUREUS (MRSA) ANTIBIOTIC RESULT INTERPRETATION AZITHROMYCIN >4 R CLINDAMYCIN <=0.25 R* CEFOXITIN SCREEN >4 POS CIPROFLOXACIN >2 R CEFTAROLINE 1 S DAPTOMYCIN 1 S ERYTHROMYCIN >4 R GENTAMICIN >8 R INDUCIBLE CLINDAMYCIN >4/0.5 POS LINEZOLID 2 S LEVOFLOXACIN >4 R OXACILLIN >2 R PENICILLIN >2 R* RIFAMPIN <=1 S TRIMETHOPRIM/SULFAMETHOXAZOLE >38 R TETRACYCLINE >8 R RUN DATE: 08/30/20 [facility] *LIVE* PAGE 2 RUN TIME: 913 Specimen Inquiry SPEC: [id number] PATIENT: ANA LUISAYONIS CASAS [id number] (Continued) Procedure Result CONTINUED ON NEXT PAGE RUN DATE: 08/30/20 [facility] *LIVE* PAGE 3 RUN TIME: 913 Specimen Inquiry SPEC: [id number] PATIENT: YONIS HAIRSTON [id number] (Continued) SPEC #: [id number] OFE: 08/27/20 STATUS: RES REQ #: [id number] RECD: 08/28/20-[address]: JUDIE HUBBARD III, DO SOURCE: LEG ENTR: 08/28/[address]: YAN RIOS MD [facility]: WOUND BEVERLY SPENCER MD ORDERED: ANAER/CHAI/KARI COMMENTS: R LEG SUBCUTANEOUS Procedure Result GRAM STAIN Final Final GRAM POS COCCI CLUSTERS:MODERATE RBC:MODERATE SQUAMOUS EPI CELL:RARE PMN (WBCs):MANY Unless otherwise specified, Testing Performed by: [address] [address] For Inquires, the Physician may contact the Microbiology department at [phone] ANAEROBIC-AEROBIC CULTURE Preliminary Preliminary MANY [STAPHYLOCOCCUS AUREUS (MRSA)] on 08/29/20 at 1351 SEE CULTURE AN663 FOR SUSCEPTIBILITY RESULTS STAPHYLOCOCCUS AUREUS (MRSA) Unless otherwise specified, Testing Performed by: [address] [address] For Inquires, the Physician may contact the Microbiology department at [phone] 26 min pt exam, chart review, > 50% of time spent with exam, chart review, pt care coordination Cont Daptomycin higher dose 10mg/kg daily (08/30) and Rifampin ( 08/30). Tristin id IV vancomycin due to BERHANE . monitor CK closely Follow up labs and cultures. 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 6 pain improving emperic iv antibiotics Postoperatively, wound care, PT, OT and probably chcf facility. ID CONSULT BLOOD CULTURES Operative procedure: Irrigation and debridement right knee with superficial and deep cultures and retention of hardware 6-18 Procedure Result GRAM STAIN Final Final GRAM POS COCCI CLUSTERS:MODERATE RBC:MANY SQUAMOUS EPI CELL:NOT APPLICABLE PMN (WBCs):MANY Unless otherwise specified, Testing Performed by: [address] [address] For Inquires, the Physician may contact the Microbiology department at [phone] ANAEROBIC-AEROBIC CULTURE Preliminary Preliminary MANY [STAPHYLOCOCCUS AUREUS (MRSA)] on 08/29/20 at 1351 STAPHYLOCOCCUS AUREUS (MRSA) ANTIMICROBIAL SUSCEPTIBILITY Preliminary Comment POS JC TYPE 38 STAPHYLOCOCCUS AUREUS (MRSA) ANTIBIOTIC RESULT INTERPRETATION AZITHROMYCIN >4 R CLINDAMYCIN <=0.25 R* CEFOXITIN SCREEN >4 POS CIPROFLOXACIN >2 R CEFTAROLINE 1 S DAPTOMYCIN 1 S ERYTHROMYCIN >4 R GENTAMICIN >8 R INDUCIBLE CLINDAMYCIN >4/0.5 POS LINEZOLID 2 S LEVOFLOXACIN >4 R OXACILLIN >2 R PENICILLIN >2 R* RIFAMPIN <=1 S TRIMETHOPRIM/SULFAMETHOXAZOLE >2/38 R TETRACYCLINE >8 R --------- --- RUN DATE: 08/30/20 [facility] *LIVE* PAGE 2 RUN TIME: 913 Specimen Inquiry SPEC: [id number] PATIENT: YONIS HAIRSTON [id number] (Continued) Procedure Result CONTINUED ON NEXT PAGE RUN DATE: 08/30/20 [facility] *LIVE* PAGE 3 RUN TIME: 913 Specimen Inquiry -- SPEC: [id number] PATIENT: YONIS HAIRSTON [id number] (Continued) SPEC #: [id number] OFE: 08/27/20 STATUS: RES REQ #: [id number] RECD: 08/28/20-[address]: JUDIE HUBBARD III, DO SOURCE: LEG ENTR: 08/28/[address]: YAN RIOS MD [facility]: WOUND BEVERLY SPENCER MD ORDERED: SHAHEEN/CHAI/KARI COMMENTS: R LEG SUBCUTANEOUS Procedure Result ------- ----- GRAM STAIN Final Final GRAM POS COCCI CLUSTERS:MODERATE RBC:MODERATE SQUAMOUS EPI CELL:RARE PMN (WBCs):MANY Unless otherwise specified, Testing Performed by: [address] [address] For Inquires, the Physician may contact the Microbiology department at [phone] ANAEROBIC-AEROBIC CULTURE Preliminary Preliminary MANY [STAPHYLOCOCCUS AUREUS (MRSA)] on 08/29/20 at 1351 SEE CULTURE AN663 FOR SUSCEPTIBILITY RESULTS STAPHYLOCOCCUS AUREUS (MRSA) Unless otherwise specified, Testing Performed by: [address] [address] For Inquires, the Physician may contact the Microbiology department at [phone] 36 min pt exam, chart review, > 50% of time spent with exam, chart review, pt care coordination Cont Daptomycin higher dose 10mg/kg daily (08/30) and Rifampin ( 08/30). Avoid IV vancomycin due to BERHANE . monitor CK closely Follow up labs and cultures. 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 further surgical plans per orthopedics if pt is a candidate, . Difficult surgical candidate due to femur implant.... Despite aggressive medical management patient is at high risk of limb loss 6-25 pain improving emperic iv antibiotics Postoperatively, wound care, PT, OT and probably chcf facility. ID CONSULT BLOOD CULTURES Operative procedure: Irrigation and debridement right knee with superficial and deep cultures and retention of hardware 18 Procedure Result GRAM STAIN Final Final GRAM POS COCCI CLUSTERS:MODERATE RBC:MANY SQUAMOUS EPI CELL:NOT APPLICABLE PMN (WBCs):MANY Unless otherwise specified, Testing Performed by: [address] [address] For Inquires, the Physician may contact the Microbiology department at [phone] ANAEROBIC-AEROBIC CULTURE Preliminary Preliminary MANY [STAPHYLOCOCCUS AUREUS (MRSA)] on 08/29/20 at 1351 STAPHYLOCOCCUS AUREUS (MRSA) ANTIMICROBIAL SUSCEPTIBILITY Preliminary Comment POS JC TYPE 38 STAPHYLOCOCCUS AUREUS (MRSA) ANTIBIOTIC RESULT INTERPRETATION AZITHROMYCIN >4 R CLINDAMYCIN <=0.25 R* CEFOXITIN SCREEN >4 POS CIPROFLOXACIN >2 R CEFTAROLINE 1 S DAPTOMYCIN 1 S ERYTHROMYCIN >4 R GENTAMICIN >8 R INDUCIBLE CLINDAMYCIN >4/0.5 POS LINEZOLID 2 S LEVOFLOXACIN >4 R OXACILLIN >2 R PENICILLIN >2 R* RIFAMPIN <=1 S TRIMETHOPRIM/SULFAMETHOXAZOLE >2/38 R TETRACYCLINE >8 R RUN DATE: 08/30/20 [facility] *LIVE* PAGE 2 RUN TIME: 913 Specimen Inquiry SPEC: [id number] PATIENT: YONIS HAIRSTON [id number] (Continued) Procedure Result CONTINUED ON NEXT PAGE RUN DATE: 08/30/20 [facility] *LIVE* PAGE 3 RUN TIME: 913 Specimen Inquiry SPEC: [id number] PATIENT: YONIS HAIRSTON [id number] (Continued) SPEC #: [id number] OFE: 08/27/20 STATUS: RES REQ #: [id number] RECD: 08/28/[address]: JUDIE HUBBARD III, DO SOURCE: LEG ENTR: 08/28/[address]: YAN RIOS MD SPDESC: BEVERLY HAYES MD ORDERED: SHAHEEN/CHAI/KARI COMMENTS: R LEG SUBCUTANEOUS Procedure Result GRAM STAIN Final Final GRAM POS COCCI CLUSTERS:MODERATE RBC:MODERATE SQUAMOUS EPI CELL:RARE PMN (WBCs):MANY Unless otherwise specified, Testing Performed by: [address] [address] For Inquires, the Physician may contact the Microbiology department at [phone] ANAEROBIC-AEROBIC CULTURE Preliminary Preliminary MANY [STAPHYLOCOCCUS AUREUS (MRSA)] on 08/29/20 at 1351 SEE CULTURE AN663 FOR SUSCEPTIBILITY RESULTS STAPHYLOCOCCUS AUREUS (MRSA) Unless otherwise specified, Testing Performed by: [address] [address] For Inquires, the Physician may contact the Microbiology department at [phone] 26 min pt exam, chart review, > 50% of time spent with exam, chart review, pt care coordination Cont Daptomycin higher dose 10mg/kg daily (08/30) and Rifampin ( 08/30). Avoid IV vancomycin due to BERHAEN . monitor CK closely Follow up labs and cultures. 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 further surgical plans per orthopedics if pt is a candidate, . Difficult surgical candidate due to femur implant.... Despite aggressive medical management patient is at high risk of limb loss 6-25 pain improving emperic iv antibiotics Postoperatively, wound care, PT, OT and probably chcf facility. ID CONSULT BLOOD CULTURES Operative procedure: Irrigation and debridement right knee with superficial and deep cultures and retention of hardware 6-18 Procedure Result GRAM STAIN Final Final GRAM POS COCCI CLUSTERS:MODERATE RBC:MANY SQUAMOUS EPI CELL:NOT APPLICABLE PMN (WBCs):MANY Unless otherwise specified, Testing Performed by: [address] [address] For Inquires, the Physician may contact the Microbiology department at [phone] ANAEROBIC-AEROBIC CULTURE Preliminary Preliminary MANY [STAPHYLOCOCCUS AUREUS (MRSA)] on 08/29/20 at 1351 STAPHYLOCOCCUS AUREUS (MRSA) ANTIMICROBIAL SUSCEPTIBILITY Preliminary Comment POS JC TYPE 38 STAPHYLOCOCCUS AUREUS (MRSA) ANTIBIOTIC RESULT INTERPRETATION AZITHROMYCIN >4 R CLINDAMYCIN <=0.25 R* CEFOXITIN SCREEN >4 POS CIPROFLOXACIN >2 R CEFTAROLINE 1 S DAPTOMYCIN 1 S ERYTHROMYCIN >4 R GENTAMICIN >8 R INDUCIBLE CLINDAMYCIN >4/0.5 POS LINEZOLID 2 S LEVOFLOXACIN >4 R OXACILLIN >2 R PENICILLIN >2 R* RIFAMPIN <=1 S TRIMETHOPRIM/SULFAMETHOXAZOLE >2/38 R TETRACYCLINE >8 R RUN DATE: 08/30/20 [facility] *LIVE* PAGE 2 RUN TIME: 913 Specimen Inquiry SPEC: [id number] PATIENT: YONIS HAIRSTON [id number] (Continued) -------- ---- Procedure Result CONTINUED ON NEXT PAGE RUN DATE: 08/30/20 [facility] *LIVE* PAGE 3 RUN TIME: 913 Specimen Inquiry SPEC: [id number] PATIENT: YONIS HAIRSTON [id number] (Continued) SPEC #: [id number] OFE: 08/27/20 STATUS: RES REQ #: [id number] RECD: 08/28/[address] [facility] DR: JUDIE HUBBARD III, DO SOURCE: LEG ENTR: 08/28/[address]: YAN RIOS MD SPDESC: WOUND PULS,BEVERLY De Jesus MD ORDERED: ANAER/AEROB/GS COMMENTS: R LEG SUBCUTANEOUS Procedure Result GRAM STAIN Final Final GRAM POS COCCI CLUSTERS:MODERATE RBC:MODERATE SQUAMOUS EPI CELL:RARE PMN (WBCs):MANY Unless otherwise specified, Testing Performed by: [address] [address] For Inquires, the Physician may contact the Microbiology department at [phone] ANAEROBIC-AEROBIC CULTURE Preliminary Preliminary MANY [STAPHYLOCOCCUS AUREUS (MRSA)] on 08/29/20 at 1351 SEE CULTURE AN663 FOR SUSCEPTIBILITY RESULTS STAPHYLOCOCCUS AUREUS (MRSA) Unless otherwise specified, Testing Performed by: [address] [address] For Inquires, the Physician may contact the Microbiology department at [phone] 26 min pt exam, chart review, > 50% of time spent with exam, chart review, pt care coordination Cont Daptomycin higher dose 10mg/kg daily (08/30) and Rifampin ( 08/30). Avoid IV vancomycin due to BERHANE . monitor CK closely Follow up labs and cultures. 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 further surgical plans per orthopedics if pt is a candidate, . Difficult surgical candidate due to femur implant.... Despite aggressive medical management patient is at high risk of limb loss family are decided on this could proceed with surgical treatment accordingly and would have to arrange the materials likely with surgery 6- pain improving emperic iv antibiotics Postoperatively, wound care, PT, OT and probably chcf facility. ID CONSULT BLOOD CULTURES Operative procedure: Irrigation and debridement right knee with superficial and deep cultures and retention of hardware 08-28 Procedure Result GRAM STAIN Final Final GRAM POS COCCI CLUSTERS:MODERATE RBC:MANY SQUAMOUS EPI CELL:NOT APPLICABLE PMN (WBCs):MANY Unless otherwise specified, Testing Performed by: [address] [address] For Inquires, the Physician may contact the Microbiology department at [phone] ANAEROBIC-AEROBIC CULTURE Preliminary Preliminary MANY [STAPHYLOCOCCUS AUREUS (MRSA)] on 08/29/20 at 1351 STAPHYLOCOCCUS AUREUS (MRSA) ANTIMICROBIAL SUSCEPTIBILITY Preliminary Comment POS JC TYPE 38 STAPHYLOCOCCUS AUREUS (MRSA) ANTIBIOTIC RESULT INTERPRETATION AZITHROMYCIN >4 R CLINDAMYCIN <=0.25 R* CEFOXITIN SCREEN >4 POS CIPROFLOXACIN >2 R CEFTAROLINE 1 S DAPTOMYCIN 1 S ERYTHROMYCIN >4 R GENTAMICIN >8 R INDUCIBLE CLINDAMYCIN >4/0.5 POS LINEZOLID 2 S LEVOFLOXACIN >4 R OXACILLIN >2 R PENICILLIN >2 R* RIFAMPIN <=1 S TRIMETHOPRIM/SULFAMETHOXAZOLE >2/38 R TETRACYCLINE >8 R RUN DATE: 08/30/20 [facility] *LIVE* PAGE 2 RUN TIME: 913 Specimen Inquiry SPEC: [id number] PATIENT: YONIS HAIRSTON Francine [id number] (Continued) Procedure Result CONTINUED ON NEXT PAGE RUN DATE: 08/30/20 [facility] *LIVE* PAGE 3 RUN TIME: 0914 Specimen Inquiry SPEC: [id number] PATIENT: MARIKAYONIS [id number] (Continued) SPEC #: [id number] OFE: 08/27/20 STATUS: RES REQ #: [id number] RECD: 08/28/[address]: JUDIE HUBBARD III, DO SOURCE: LEG ENTR: 08/28/[address]: [facility]EVER[place] De Jesus MD ORDERED: ANAER/AEROB/GS COMMENTS: R LEG SUBCUTANEOUS Procedure Result GRAM STAIN Final Final GRAM POS COCCI CLUSTERS:MODERATE RBC:MODERATE SQUAMOUS EPI CELL:RARE PMN (WBCs):MANY Unless otherwise specified, Testing Performed by: [facility] [place] [address] For Inquires, the Physician may contact the Microbiology department at [phone] ANAEROBIC-AEROBIC CULTURE Preliminary Preliminary MANY [STAPHYLOCOCCUS AUREUS (MRSA)] on 08/29/20 at 1351 SEE CULTURE AN663 FOR SUSCEPTIBILITY RESULTS STAPHYLOCOCCUS AUREUS (MRSA) Unless otherwise specified, Testing Performed by: [facility] [address] [place] [address] For Inquires, the Physician may contact the Microbiology department at [phone] 26 min pt exam, chart review, > 50% of time spent with exam, chart review, pt care coordination C 6-27 pain improving emperic iv antibiotics Postoperatively, wound care, PT, OT and probably chcf facility. ID CONSULT BLOOD CULTURES Operative procedure: Irrigation and debridement right knee with superficial and deep cultures and retention of hardware 6-18 Procedure Result GRAM STAIN Final Final GRAM POS COCCI CLUSTERS:MODERATE RBC:MANY SQUAMOUS EPI CELL:NOT APPLICABLE PMN (WBCs):MANY Unless otherwise specified, Testing Performed by: [facility] [address] [place] [address] For Inquires, the Physician may contact the Microbiology department at [phone] ANAEROBIC-AEROBIC CULTURE Preliminary Preliminary MANY [STAPHYLOCOCCUS AUREUS (MRSA)] on 08/29/20 at 1351 STAPHYLOCOCCUS AUREUS (MRSA) ANTIMICROBIAL SUSCEPTIBILITY Preliminary Comment POS JC TYPE 38 STAPHYLOCOCCUS AUREUS (MRSA) ANTIBIOTIC RESULT INTERPRETATION AZITHROMYCIN >4 R CLINDAMYCIN <=0.25 R* CEFOXITIN SCREEN >4 POS CIPROFLOXACIN >2 R CEFTAROLINE 1 S DAPTOMYCIN 1 S ERYTHROMYCIN >4 R GENTAMICIN >8 R INDUCIBLE CLINDAMYCIN >4/0.5 POS LINEZOLID 2 S LEVOFLOXACIN >4 R OXACILLIN >2 R PENICILLIN >2 R* RIFAMPIN <=1 S TRIMETHOPRIM/SULFAMETHOXAZOLE >2/38 R TETRACYCLINE >8 R RUN DATE: 08/30/20 [facility] *LIVE* PAGE 2 RUN TIME: 913 Specimen Inquiry -- SPEC: [id number] PATIENT: MARIKAYONIS [id number] (Continued) Procedure Result CONTINUED ON NEXT PAGE RUN DATE: 08/30/20 [facility] *LIVE* PAGE 3 RUN TIME: 913 Specimen Inquiry SPEC: [id number] PATIENT: YONIS HAIRSTON [id number] (Continued) SPEC #: [id number] OFE: 08/27/20-2019 STATUS: RES REQ #: [id number] RECD: 08/28/20-[address]: CASTLE,NIAL K III DO SOURCE: LEG ENTR: 08/28/[address]: YAN RIOS MD [facility]: WOUND PULS,BEVERLY De Jesus MD ORDERED: SHAHEEN/CHAI/KARI COMMENTS: R LEG SUBCUTANEOUS Procedure Result -- GRAM STAIN Final Final GRAM POS COCCI CLUSTERS:MODERATE RBC:MODERATE SQUAMOUS EPI CELL:RARE PMN (WBCs):MANY Unless otherwise specified, Testing Performed by: [address] [address] For Inquires, the Physician may contact the Microbiology department at [phone] ANAEROBIC-AEROBIC CULTURE Preliminary Preliminary MANY [STAPHYLOCOCCUS AUREUS (MRSA)] on 08/29/20 at 1351 SEE CULTURE AN663 FOR SUSCEPTIBILITY RESULTS STAPHYLOCOCCUS AUREUS (MRSA) Unless otherwise specified, Testing Performed by: [address] [address] For Inquires, the Physician may contact the Microbiology department at [phone] 36 min pt exam, chart review, > 50% of time spent with exam, chart review, pt care coordination Cont Daptomycin higher dose 10mg/kg daily (08/30) and Rifampin ( 08/30). Avoid IV vancomycin due to BERHANE . monitor CK closely Follow up labs and cultures. 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 further surgical plans per orthopedics if pt is a candidate, . Difficult surgical candidate due to femur implant.... Despite aggressive medical management patient is at high risk of limb loss family are decided on this could proceed with surgical treatment accordingly and would have to arrange the materials likely with surgery Cont Daptomycin 10mg/kg daily (08/30) and Rifampin ( 08/30), rifampin is for [facility] to assist with drug drug interactions for rifampin with other meds 6-27 pain improving emperic iv antibiotics Postoperatively, wound care, PT, OT and probably [facility] facility. ID CONSULT BLOOD CULTURES Operative procedure: Irrigation and debridement right knee with superficial and deep cultures and retention of hardware 18 ---- -------- Procedure Result GRAM STAIN Final Final GRAM POS COCCI CLUSTERS:MODERATE RBC:MANY SQUAMOUS EPI CELL:NOT APPLICABLE PMN (WBCs):MANY Unless otherwise specified, Testing Performed by: [address] [address] For Inquires, the Physician may contact the Microbiology department at [phone] ANAEROBIC-AEROBIC CULTURE Preliminary Preliminary MANY [STAPHYLOCOCCUS AUREUS (MRSA)] on 08/29/20 at 1351 STAPHYLOCOCCUS AUREUS (MRSA) ANTIMICROBIAL SUSCEPTIBILITY Preliminary Comment POS JC TYPE 38 STAPHYLOCOCCUS AUREUS (MRSA) ANTIBIOTIC RESULT INTERPRETATION AZITHROMYCIN >4 R CLINDAMYCIN <=0.25 R* CEFOXITIN SCREEN >4 POS CIPROFLOXACIN >2 R CEFTAROLINE 1 S DAPTOMYCIN 1 S ERYTHROMYCIN >4 R GENTAMICIN >8 R INDUCIBLE CLINDAMYCIN >4/0.5 POS LINEZOLID 2 S LEVOFLOXACIN >4 R OXACILLIN >2 R PENICILLIN >2 R* RIFAMPIN <=1 S TRIMETHOPRIM/SULFAMETHOXAZOLE >2/38 R TETRACYCLINE >8 R ont Daptomycin higher dose 10mg/kg daily (08/30) and Rifampin ( 08/30). Avoid IV vancomycin due to BERHANE . monitor CK closely Follow up labs and cultures. 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 further surgical plans per orthopedics if pt is a candidate, . Difficult surgical candidate due to femur implant.... Despite aggressive medical management patient is at high risk of limb loss History of Present Illness History of Present Illness 09/09 , Dapto planned for 6 weeks, discussed wt ID Vasc following, may need angio PICC was placed plan to send to acute rehab soon cotn PT and OT 09-10 ====== pain improving emperic iv antibiotics Postoperatively, wound care, PT, OT and probably [facility] facility. ID CONSULT BLOOD CULTURES Operative procedure: Irrigation and debridement right knee with superficial and deep cultures and retention of hardware 08-28 MRSA Complicated RT Knee arthroplasty infection ( R to bactrim and Doxycycline, S to Rifampin) Right knee postop site drainage,hematoma with infection Dapto planned for 6 weeks, discussed wt ID Vasc following, may need angio PICC was placed plan to send to acute rehab soon d/w RN Vitals Vitals Vital Signs Date Time Temp Pulse Resp B/P (MAP) Pulse Ox O2 Delivery O2 Flow Rate FiO2 09/10/20 07:00 97.6 80 16 169/81 (110) 96 Room Air 97.6 Physical Exam Physical Exam GENERAL: Alert, oriented x 3, pleasant female, lying in bed comfortably, in no acute distress. HEENT: Normocephalic, atraumatic. Anicteric. NECK: Supple. No JVD. LUNGS: Clear bilaterally. No wheezing. HEART: S1, S2. No gallops or murmurs. ABDOMEN: Soft, obese, nontender, nondistended. EXTREMITIES: Right lower extremity swelling present. Dressing in place not taken down NEUROLOGIC: Alert, oriented x 3, grossly nonfocal. PSYCHIATRIC: Calm and cooperative. DERMATOLOGIC: Warm, dry, no generalized rash. PICC site good General: Alert, Oriented X3, Cooperative, No acute distress Heart: Regular rate Lungs: Clear Abdomen: Normal bowel sounds, Soft Extremities: No cyanosis Labs LABS Laboratory Tests Test 09/10/20 03:35 White Blood Count 8.1 x10^3/uL (4.0-11.0) Red Blood Count 2.90 x10^6/uL (3.50-5.40) Hemoglobin 9.0 g/dL (12.0-15.5) Hematocrit 27.0 % (36.0-47.0) Mean Corpuscular Volume 93 fL (79-100) Mean Corpuscular Hemoglobin 31 pg (25-35) Mean Corpuscular Hemoglobin Concent 33 g/dL (31-37) Red Cell Distribution Width 15.6 % (11.5-14.5) Platelet Count 317 x10^3/uL (140-400) Neutrophils (%) (Auto) 46 % (31-73) Lymphocytes (%) (Auto) 29 % (24-48) Monocytes (%) (Auto) 22 % (0-9) Eosinophils (%) (Auto) 2 % (0-3) Basophils (%) (Auto) 1 % (0-3) Neutrophils # (Auto) 3.7 x10^3/uL (1.8-7.7) Lymphocytes # (Auto) 2.3 x10^3/uL (1.0-4.8) Monocytes # (Auto) 1.8 x10^3/uL (0.0-1.1) Eosinophils # (Auto) 0.2 x10^3/uL (0.0-0.7) Basophils # (Auto) 0.1 x10^3/uL (0.0-0.2) Sodium Level 136 mmol/L (136-145) Potassium Level 4.3 mmol/L (3.5-5.1) Chloride Level 103 mmol/L (98-107) Carbon Dioxide Level 29 mmol/L (21-32) Anion Gap 4 (6-14) Blood Urea Nitrogen 27 mg/dL (7-20) Creatinine 1.0 mg/dL (0.6-1.0) Estimated GFR (Cockcroft-Gault) 52.2 BUN/Creatinine Ratio 27 (6-20) Glucose Level 109 mg/dL (70-99) Calcium Level 8.1 mg/dL (8.5-10.1) Total Bilirubin 0.4 mg/dL (0.2-1.0) Aspartate Amino Transf (AST/SGOT) 12 U/L (15-37) Alanine Aminotransferase (ALT/SGPT) 15 U/L (14-59) Alkaline Phosphatase 109 U/L (46-116) Total Protein 5.1 g/dL (6.4-8.2) Albumin 1.6 g/dL (3.4-5.0) Albumin/Globulin Ratio 0.5 (1.0-1.7) Assessment and Plan Assessmemt and Plan Problems Medical Problems: (1) Cellulitis Status: Acute Comment Review of Relevant I have reviewed the following items fiorella (where applicable) has been applied. Labs Laboratory Tests Test 09/10/20 03:35 White Blood Count 8.1 x10^3/uL (4.0-11.0) Red Blood Count 2.90 x10^6/uL (3.50-5.40) Hemoglobin 9.0 g/dL (12.0-15.5) Hematocrit 27.0 % (36.0-47.0) Mean Corpuscular Volume 93 fL (79-100) Mean Corpuscular Hemoglobin 31 pg (25-35) Mean Corpuscular Hemoglobin Concent 33 g/dL (31-37) Red Cell Distribution Width 15.6 % (11.5-14.5) Platelet Count 317 x10^3/uL (140-400) Neutrophils (%) (Auto) 46 % (31-73) Lymphocytes (%) (Auto) 29 % (24-48) Monocytes (%) (Auto) 22 % (0-9) Eosinophils (%) (Auto) 2 % (0-3) Basophils (%) (Auto) 1 % (0-3) Neutrophils # (Auto) 3.7 x10^3/uL (1.8-7.7) Lymphocytes # (Auto) 2.3 x10^3/uL (1.0-4.8) Monocytes # (Auto) 1.8 x10^3/uL (0.0-1.1) Eosinophils # (Auto) 0.2 x10^3/uL (0.0-0.7) Basophils # (Auto) 0.1 x10^3/uL (0.0-0.2) Sodium Level 136 mmol/L (136-145) Potassium Level 4.3 mmol/L (3.5-5.1) Chloride Level 103 mmol/L (98-107) Carbon Dioxide Level 29 mmol/L (21-32) Anion Gap 4 (6-14) Blood Urea Nitrogen 27 mg/dL (7-20) Creatinine 1.0 mg/dL (0.6-1.0) Estimated GFR (Cockcroft-Gault) 52.2 BUN/Creatinine Ratio 27 (6-20) Glucose Level 109 mg/dL (70-99) Calcium Level 8.1 mg/dL (8.5-10.1) Total Bilirubin 0.4 mg/dL (0.2-1.0) Aspartate Amino Transf (AST/SGOT) 12 U/L (15-37) Alanine Aminotransferase (ALT/SGPT) 15 U/L (14-59) Alkaline Phosphatase 109 U/L (46-116) Total Protein 5.1 g/dL (6.4-8.2) Albumin 1.6 g/dL (3.4-5.0) Albumin/Globulin Ratio 0.5 (1.0-1.7) Laboratory Tests Test 09/10/20 03:35 White Blood Count 8.1 x10^3/uL (4.0-11.0) Red Blood Count 2.90 x10^6/uL (3.50-5.40) Hemoglobin 9.0 g/dL (12.0-15.5) Hematocrit 27.0 % (36.0-47.0) Mean Corpuscular Volume 93 fL (79-100) Mean Corpuscular Hemoglobin 31 pg (25-35) Mean Corpuscular Hemoglobin Concent 33 g/dL (31-37) Red Cell Distribution Width 15.6 % (11.5-14.5) Platelet Count 317 x10^3/uL (140-400) Neutrophils (%) (Auto) 46 % (31-73) Lymphocytes (%) (Auto) 29 % (24-48) Monocytes (%) (Auto) 22 % (0-9) Eosinophils (%) (Auto) 2 % (0-3) Basophils (%) (Auto) 1 % (0-3) Neutrophils # (Auto) 3.7 x10^3/uL (1.8-7.7) Lymphocytes # (Auto) 2.3 x10^3/uL (1.0-4.8) Monocytes # (Auto) 1.8 x10^3/uL (0.0-1.1) Eosinophils # (Auto) 0.2 x10^3/uL (0.0-0.7) Basophils # (Auto) 0.1 x10^3/uL (0.0-0.2) Sodium Level 136 mmol/L (136-145) Potassium Level 4.3 mmol/L (3.5-5.1) Chloride Level 103 mmol/L (98-107) Carbon Dioxide Level 29 mmol/L (21-32) Anion Gap 4 (6-14) Blood Urea Nitrogen 27 mg/dL (7-20) Creatinine 1.0 mg/dL (0.6-1.0) Estimated GFR (Cockcroft-Gault) 52.2 BUN/Creatinine Ratio 27 (6-20) Glucose Level 109 mg/dL (70-99) Calcium Level 8.1 mg/dL (8.5-10.1) Total Bilirubin 0.4 mg/dL (0.2-1.0) Aspartate Amino Transf (AST/SGOT) 12 U/L (15-37) Alanine Aminotransferase (ALT/SGPT) 15 U/L (14-59) Alkaline Phosphatase 109 U/L (46-116) Total Protein 5.1 g/dL (6.4-8.2) Albumin 1.6 g/dL (3.4-5.0) Albumin/Globulin Ratio 0.5 (1.0-1.7) Microbiology 08/27/20 Gram Stain - Final, Complete 08/27/20 Aerobic and Anaerobic Culture - Final, Complete 08/27/20 Antimicrobic Susceptibility - Final, Complete 08/27/20 AFB Specimen Processing Tissue - Final, Resulted 08/27/20 Acid Fast Bacilli Culture, Resulted Pending 08/27/20 Gram Stain - Final, Resulted 08/27/20 Fungal Culture, Resulted Pending 08/27/20 Fungal Culture Result 1, Resulted Pending 08/27/20 Blood Culture - Final, Complete NO GROWTH AFTER 5 DAYS Medications Current Medications Vancomycin HCl 1 gm/Sodium Chloride 250 ml @ 166.667 mls/hr 1X ONCE IV ; Start 08/27/20 at 14:00; Stop 08/27/20 at 14:04; Status DC Vancomycin HCl 1.75 gm/Sodium Chloride 500 ml @ 250 mls/hr 1X ONCE IV Last administered on 08/27/20at 15:13; Start 08/27/20 at 14:30; Stop 08/27/20 at 16:29; Status DC Sodium Chloride 1,000 ml @ 1,000 mls/hr 1X ONCE IV Last administered on 08/27/20at 15:12; Start 08/27/20 at 14:15; Stop 08/27/20 at 15:14; Status DC Fentanyl Citrate (Fentanyl 2ml Vial) 25 mcg PRN Q5MIN PRN IVP MILD PAIN 1-3; Start 08/27/20 at 16:30; Stop 08/28/20 at 16:29; Status DC Fentanyl Citrate (Fentanyl 2ml Vial) 50 mcg PRN Q5MIN PRN IVP MODERATE PAIN 4-6 Last administered on 08/27/20at 21:50; Start 08/27/20 at 16:30; Stop 08/28/20 at 16:29; Status DC Morphine Sulfate (Morphine Sulfate) 1 mg PRN Q10MIN PRN IVP SEVERE PAIN 7-10 Last administered on 08/27/20at 22:13; Start 08/27/20 at 16:30; Stop 08/28/20 at 16:29; Status DC Ringer's Solution 1,000 ml @ 30 mls/hr Q24H IV ; Start 08/27/20 at 16:30; Stop 08/28/20 at 04:29; Status DC Hydromorphone HCl (Dilaudid) 0.5 mg PRN Q10MIN PRN IVP SEVERE PAIN 7-10, 2nd CHOICE Last administered on 08/27/20at 22:24; Start 08/27/20 at 16:30; Stop 08/28/20 at 16:29; Status DC Prochlorperazine Edisylate (Compazine) 5 mg PACU PRN PRN IVP NAUSEA, MRX1; Start 08/27/20 at 16:30; Stop 08/28/20 at 16:29; Status DC Propofol (Diprivan) 200 mg STK-MED ONCE IV ; Start 08/27/20 at 19:50; Stop 08/27/20 at 19:51; Status DC Lidocaine HCl (Lidocaine Pf 2% Vial) 5 ml STK-MED ONCE .ROUTE ; Start 08/27/20 at 19:50; Stop 08/27/20 at 19:51; Status DC Fentanyl Citrate (Fentanyl 2ml Vial) 100 mcg STK-MED ONCE .ROUTE ; Start 08/27/20 at 19:58; Stop 08/27/20 at 19:58; Status DC Ondansetron HCl (Zofran) 4 mg STK-MED ONCE .ROUTE ; Start 08/27/20 at 20:36; Stop 08/27/20 at 20:37; Status DC Dexamethasone Sodium Phosphate (Decadron) 4 mg STK-MED ONCE .ROUTE ; Start 08/27/20 at 20:36; Stop 08/27/20 at 20:37; Status DC Phenylephrine HCl (PHENYLEPHRINE in 0.9% NACL PF) 1 mg STK-MED ONCE IV ; Start 08/27/20 at 20:37; Stop 08/27/20 at 20:37; Status DC Sevoflurane (Ultane) 60 ml STK-MED ONCE IH ; Start 08/27/20 at 21:22; Stop 08/27/20 at 21:22; Status DC Fentanyl Citrate (Fentanyl 2ml Vial) 100 mcg STK-MED ONCE .ROUTE ; Start 08/27/20 at 21:45; Stop 08/27/20 at 21:45; Status DC Morphine Sulfate (Morphine Sulfate) 2 mg STK-MED ONCE .ROUTE ; Start 08/27/20 at 22:01; Stop 08/27/20 at 22:01; Status DC Hydromorphone HCl (Dilaudid) 2 mg STK-MED ONCE .ROUTE ; Start 08/27/20 at 22:21; Stop 08/27/20 at 22:21; Status DC Sodium Chloride 1,000 ml @ 75 mls/hr [id number] IV Last administered on 08/30/20at 02:38; Start 08/28/20 at 09:45; Stop 08/30/20 at 15:48; Status DC Daptomycin 410 mg/ Sodium Chloride 50 ml @ 100 mls/hr Q24H IV Last administered on 08/29/20at 13:15; Start 08/28/20 at 12:30; Stop 08/30/20 at 10:11; Status DC Piperacillin Sod/ Tazobactam Sod 3.375 gm/Sodium Chloride 50 ml @ 100 mls/hr Q6HRS IV Last administered on 08/30/20at 05:57; Start 08/28/20 at 12:00; Stop 08/30/20 at 10:11; Status DC Acetaminophen (Tylenol) 1,000 mg PRN BID PRN PO MILD PAIN / TEMP > 100.3'F Last administered on 09/05/20at 00:48; Start 08/28/20 at 14:45; Stop 09/05/20 at 13:21; Status DC Docusate Sodium (Colace) 100 mg BID PO Last administered on 09/10/20at 08:56; Start 08/28/20 at 21:00 Levothyroxine Sodium (Synthroid) 88 mcg DAILY07 PO Last administered on 1at 06:56; Start 08/29/20 at 07:00 Simvastatin (Zocor) 20 mg HS PO Last administered on 09/09/20at 21:09; Start 08/28/20 at 21:00 Tramadol HCl (Ultram) 50 mg PRN Q4HRS PRN PO MODERATE PAIN Last administered on 08/28/20at 15:01; Start 08/28/20 at 14:45 Vitamin D (Vitamin D3) 2,000 unit DAILY PO Last administered on 09/10/20at 08:56; Start 08/29/20 at 09:00 Non-Formulary Medication (Melatonin ) 1 tab QHS PO ; Start 08/28/20 at 21:00; Status UNV Multivitamins (Thera M Plus) 1 tab DAILY PO Last administered on 09/10/20at 08:57; Start 08/29/20 at 09:00 Pantoprazole Sodium (Protonix) 40 mg DAILYAC PO Last administered on 09/10/20at 08:56; Start 08/29/20 at 07:30 Oxybutynin Chloride (Ditropan) 5 mg [id number] PO Last administered on 09/10/20at 08:56; Start 08/28/20 at 21:00 Lactobacillus Rhamnosus (Culturelle) 1 cap BID PO Last administered on 09/10/20at 08:56; Start 08/29/20 at 21:00 Rifampin (Rifadin) 300 mg BID PO Last administered on 09/10/20at 08:56; Start 08/30/20 at 11:00 Daptomycin 550 mg/ Sodium Chloride 50 ml @ 100 mls/hr Q24H IV Last administered on 09/09/20at 11:19; Start 08/30/20 at 12:30 Vancomycin HCl (Vancomycin) 8 gm STK-MED ONCE CEMENT Last administered on 09/04/20at 15:13; Start 09/04/20 at 15:13; Stop 09/04/20 at 19:33; Status DC Tobramycin Sulfate (Tobramycin Powder) 9.6 gm STK-MED ONCE CEMENT Last administered on 09/04/20at 15:13; Start 09/04/20 at 15:13; Stop 09/04/20 at 19:33 ; Status DC Fentanyl Citrate (Fentanyl 2ml Vial) 25 mcg PRN Q5MIN PRN IV PAIN; Start 09/04/20 at 20:00; Stop 09/04/20 at 21:12; Status DC Fentanyl Citrate (Fentanyl 2ml Vial) 50 mcg PRN Q5MIN PRN IV PAIN; Start 09/04/20 at 20:00; Stop 09/04/20 at 21:12; Status DC Morphine Sulfate (Morphine Sulfate) 2 mg PRN Q10MIN PRN IV PAIN; Start 09/04/20 at 20:00; Stop 09/04/20 at 21:12; Status DC Atropine Sulfate (ATROPINE 0.5mg SYRINGE) 0.5 mg PRN 1X PRN IV SEE COMMENTS; Start 09/04/20 at 20:00; Stop 09/05/20 at 19:59; Status DC Naloxone HCl (Narcan) 0.04 mg PRN Q2MIN PRN IV SEE COMMENTS; Start 09/04/20 at 20:00; Stop 09/05/20 at 19:59; Status DC Hydromorphone HCl (Dilaudid) 0.5 mg PRN Q10MIN PRN IVP pain Last administered on 09/04/20at 19:45; Start 09/04/20 at 20:00; Stop 09/04/20 at 21:12; Status DC Ringer's Solution 1,000 ml @ 75 mls/hr [id number] IV Last administered on 09/05/20at 09:05; Start 09/04/20 at 17:00; Stop 09/05/20 at 16:59; Status DC Fentanyl Citrate (Fentanyl 2ml Vial) 25 mcg PRN Q3HRS PRN IVP SEVERE PAIN 7-10 Last administered on 09/06/20at 12:22; Start 09/04/20 at 21:15 Acetaminophen (Tylenol) 650 mg PRN Q4HRS PRN PO MILD PAIN / TEMP > 100.3'F Last administered on 09/09/20at 22:30; Start 09/05/20 at 05:45 Oxycodone/ Acetaminophen (Percocet 5/325) 1 tab PRN Q4HRS PRN PO SEVERE PAIN, 1ST CHOICE Last administered on 09/05/20at 10:24; Start 09/05/20 at 10:30 Oxycodone/ Acetaminophen (Percocet 7.5/ 325) 1 tab PRN Q4HRS PRN PO SEVERE PAIN, 2ND CHOICE Last administered on 09/08/20at 14:34; Start 09/05/20 at 11:15 Polyethylene Glycol (miraLAX PACKET) 17 gm DAILY PO Last administered on 09/10/20at 08:57; Start 09/07/20 at 10:00 Rocuronium [place] (Zemuron) 50 mg STK-MED ONCE .ROUTE ; Start 09/04/20 at 14:02; Stop 09/08/20 at 11:07; Status DC Tranexamic Acid 50 ml @ As Directed STK-MED ONCE .ROUTE ; Start 09/04/20 at 14:05; Stop 09/08/20 at 11:07; Status DC Propofol (Diprivan) 200 mg STK-MED ONCE IV ; Start 09/04/20 at 14:05; Stop 09/08/20 at 11:07; Status DC Dexamethasone Sodium Phosphate (Decadron) 4 mg STK-MED ONCE .ROUTE ; Start 09/04/20 at 14:05; Stop 09/08/20 at 11:07; Status DC Lidocaine HCl (Lidocaine Pf 2% Vial) 5 ml STK-MED ONCE .ROUTE ; Start 09/04/20 at 14:05; Stop 09/08/20 at 11:07; Status DC Ondansetron HCl (Zofran) 4 mg STK-MED ONCE .ROUTE ; Start 09/04/20 at 14:05; Stop 09/08/20 at 11:07; Status DC Sevoflurane (Ultane) 90 ml STK-MED ONCE IH ; Start 09/04/20 at 14:05; Stop 09/08/20 at 11:07; Status DC Vancomycin HCl (Vancomycin) 1 gm STK-MED ONCE .ROUTE ; Start 09/04/20 at 14:05; Stop 09/08/20 at 11:07; Status DC Tranexamic Acid 50 ml @ As Directed STK-MED ONCE .ROUTE ; Start 09/04/20 at 14:05; Stop 09/08/20 at 11:07; Status DC Fentanyl Citrate (Fentanyl 2ml Vial) 100 mcg STK-MED ONCE .ROUTE ; Start 09/04/20 at 14:41; Stop 09/08/20 at 11:08; Status DC Phenylephrine HCl (PHENYLEPHRINE in 0.9% NACL PF) 1 mg STK-MED ONCE IV ; Start 09/04/20 at 14:53; Stop 09/08/20 at 11:08; Status DC Vancomycin HCl (Vancomycin) 1 gm STK-MED ONCE .ROUTE ; Start 09/04/20 at 15:18; Stop 09/08/20 at 11:08; Status DC Tobramycin Sulfate (Tobramycin Powder) 1.2 gm STK-MED ONCE .ROUTE ; Start 09/04/20 at 15:18; Stop 09/08/20 at 11:08; Status DC Vancomycin HCl (Vancomycin) 1 gm STK-MED ONCE .ROUTE ; Start 09/04/20 at 15:20; Stop 09/08/20 at 11:08; Status DC Tobramycin Sulfate (Tobramycin Powder) 1.2 gm STK-MED ONCE .ROUTE ; Start 09/04/20 at 15:20; Stop 09/08/20 at 11:08; Status DC Glycopyrrolate (Robinul) 1 mg STK-MED ONCE .ROUTE ; Start 09/04/20 at 18:18; Stop 09/08/20 at 11:08; Status DC Neostigmine [place] (Neostigmine Methylsulfate) 5 mg STK-MED ONCE .ROUTE ; Start 09/04/20 at 18:18; Stop 09/08/20 at 11:08; Status DC Lidocaine HCl (Lidocaine Pf 2% Vial) 5 ml STK-MED ONCE .ROUTE ; Start 09/04/20 at 18:51; Stop 09/08/20 at 11:08; Status DC Hydromorphone HCl (Dilaudid) 2 mg STK-MED ONCE .ROUTE ; Start 09/04/20 at 19:26; Stop 09/08/20 at 11:08; Status DC Active Scripts Active Reported Acetaminophen 500 Mg Tablet 2 Tab PO PRN BID PRN 30 Days Tramadol Hcl 50 Mg Tablet 50 Mg PO Q4HRS PRN Melatonin 5 Mg Tab.rapdis 1 Tab PO QHS 30 Days Colace (Docusate Sodium) 100 Mg Capsule 1 Cap PO BID 30 Days Vesicare (Solifenacin Succinate) 10 Mg Tablet 1 Tab PO DAILY 30 Days Levothyroxine Sodium 88 Mcg Tablet 1 Tab PO DAILY Omeprazole 20 Mg Capsule.dr 1 Cap PO DAILY Vitamin D3 (Cholecalciferol (Vitamin D3)) 2,000 Unit Tablet 2,000 Unit PO DAILY Once Daily (Multivitamin) 1 Each Tablet 1 Each PO DAILY Simvastatin 20 Mg Tablet 20 Mg PO HS Vitals/I & O Vital Sign - Last 24 Hours 09/09/20 09/09/20 09/09/20 09/09/20 11:00 15:00 19:00 19:50 Temp 98.7 98.4 98.5 98.7 98.4 98.5 Pulse 78 80 84 Resp 18 18 18 B/P (MAP) 116/45 (68) 94/49 (64) 100/51 (67) Pulse Ox 96 97 96 O2 Delivery Room Air Room Air Room Air Room Air 09/09/20 09/10/20 09/10/20 23:00 03:00 07:00 Temp 98.3 98.4 97.6 98.3 98.4 97.6 Pulse 92 83 80 Resp 18 18 16 B/P (MAP) 116/46 (69) 95/42 (59) 169/81 (110) Pulse Ox 99 97 96 O2 Delivery Room Air Room Air Room Air Intake and Output 09/09/20 09/09/20 09/10/20 15:00 23:00 07:00 Output Total 500 ml Balance -500 ml Nutrition Consultation Dietary Evaluation: Recommendations by RD: Dietary education by RD, Increase Calorie Intake, Protein supplementation Comments: continue Cardiac diet and kris bid to promote wound healing continue with mvi Expected Outcomes/Goals: to meet >75% est nutr needs- ongoing improved wound status- ongoing Malnutrition Findings: Body Fat Depletion (Non Severe: Mild Depletion Weight Status: Overweight Justicifation of Admission Dx: Justifications for Admission: Justification of Admission Dx: N/A SUNSHINE GALEAS MD Sep 10, 2020 10:01
[2020-09-10 11:00] VITALS: BP 119/41
[2020-09-10] MEDS: DAPTOmycin (GENERIC) IVPB 550 MG in IV NORMAL SALINE 50ML 50 ML IV SCH (12:41)
[2020-09-10 15:00] VITALS: BP 101/38
[2020-09-10 19:00] VITALS: BP 118/47
[2020-09-10] MEDS: SIMVASTATIN 20 MG TABLET PO SCH (20:07)
[2020-09-10 23:00] VITALS: BP 112/46
[2020-09-11 03:00] VITALS: BP 112/49
[2020-09-11] MEDS: ACETAMINOPHEN 325 MG TABLET. PO PRN (04:22)
[2020-09-11] MEDS: LEVOTHYROXINE 88 MCG TABLET PO SCH (05:59)
[2020-09-11] MEDS: PANTOPRAZOLE 40 MG TABLET.DR. PO SCH (05:59)
[2020-09-11 07:00] VITALS: BP 116/56
[2020-09-11] MEDS: POLYETHYLENE GLYCOL 3350 17 GM PACKET. PO SCH (08:25)
[2020-09-11] MEDS: MULTIVITAMIN with MINERAL TABLET. PO SCH (08:25)
[2020-09-11] MEDS: LACTOBACILLUS RHAMNOSUS GG 1 CAPSULE. PO SCH (08:25)
[2020-09-11] MEDS: DOCUSATE SODIUM 100 MG CAPSULE. PO SCH (08:25)
[2020-09-11] MEDS: OXYBUTYNIN CHLORIDE 5 MG TABLET PO SCH ×2 (08:25→13:45)
[2020-09-11] MEDS: CHOLECALCIFEROL (VITAMIN D3) 1,000 UNIT TABLET PO SCH (08:25)
[2020-09-11] MEDS: riFAMpin 300 MG CAPSULE. PO SCH (08:25)
--- NOTE | 2020-09-11 08:36 | PDOC ---
Infectious Disease Note Subjective Subjective Patient without complaints Postop pain is under control Denies fever, nausea, vomiting, shortness of breath, diarrhea, abdominal pain, rash Otherwise as above Vital Sign Vital Signs Vital Signs Date Time Temp Pulse Resp B/P (MAP) Pulse Ox O2 Delivery O2 Flow Rate FiO2 09/11/20 07:00 98.0 79 16 116/56 (76) Room Air 98.0 09/11/20 03:00 96 Physical Exam PHYSICAL EXAM GENERAL: Alert, oriented x 3, pleasant female, lying in bed comfortably, in no acute distress. HEENT: Normocephalic, atraumatic. Anicteric. NECK: Supple. No JVD. LUNGS: Clear bilaterally. No wheezing. HEART: S1, S2. No gallops or murmurs. ABDOMEN: Soft, obese, nontender, nondistended. EXTREMITIES: Right lower extremity swelling present. Dressing in place not taken down NEUROLOGIC: Alert, oriented x 3, grossly nonfocal. PSYCHIATRIC: Calm and cooperative. DERMATOLOGIC: Warm, dry, no generalized rash. PICC site good Labs Lab Laboratory Tests Test 09/10/20 18:15 SARS-CoV-2 RNA (PRISCILLA) Negative (Negative) SARS-CoV-2 Antigen (Rapid) Negative (NEGATIVE) Micro GRAM STAIN Final Final GRAM POS COCCI CLUSTERS:MODERATE RBC:MANY SQUAMOUS EPI CELL:NOT APPLICABLE PMN (WBCs):MANY Unless otherwise specified, Testing Performed by: [address] [id number] For Inquires, the Physician may contact the Microbiology department at [phone] ANAEROBIC-AEROBIC CULTURE Final Final MANY [STAPHYLOCOCCUS AUREUS (MRSA)] on 08/29/20 at 1351 NO ANAEROBIC ORGANISMS ISOLATED on 09/02/20 at 0828 STAPHYLOCOCCUS AUREUS (MRSA) ANTIMICROBIAL SUSCEPTIBILITY Final Comment POS JC TYPE 38 STAPHYLOCOCCUS AUREUS (MRSA) ANTIBIOTIC RESULT INTERPRETATION AZITHROMYCIN >4 R CLINDAMYCIN <=0.25 R* CEFOXITIN SCREEN >4 POS CIPROFLOXACIN >2 R CEFTAROLINE 1 S DAPTOMYCIN 1 S ERYTHROMYCIN >4 R GENTAMICIN >8 R INDUCIBLE CLINDAMYCIN >4/0.5 POS LINEZOLID 2 S LEVOFLOXACIN >4 R OXACILLIN >2 R PENICILLIN >2 R* RIFAMPIN <=1 S TRIMETHOPRIM/SULFAMETHOXAZOLE >238 R RUN DATE: 09/02/20 [facility] *LIVE* PAGE 2 RUN TIME: 0832 Specimen Inquiry SPEC: [id number] PATIENT: YONIS HAIRSTON Francine [id number] (Continued) Procedure Result CONTINUED ON NEXT PAGE RUN DATE: 09/02/20 [facility] *LIVE* PAGE 3 RUN TIME: 0832 Specimen Inquiry SPEC: [id number] PATIENT: YONIS HAIRSTON [id number] (Continued) ----- ------- Procedure Result ANTIMICROBIAL SUSCEPTIBILITY Final (continued) TETRACYCLINE >8 R VANCOMYCIN 1 S Unless otherwise specified, Testing Performed by: [address] [address] For Inquires, the Physician may contact the Microbiology department at [phone] Objective Assessment MRSA Complicated RT Knee arthroplasty infection ( R to bactrim and Doxycycline, S to Rifampin) 1.. Right knee postop site drainage,hematoma with infection Status post synovial aspirate on 08/27/2020, WBC 2100, RBC 102,000, 98%PMNs. Cult MRSA 2. MRSA Right knee periprosthetic joint infection. S/P Irrigation and debridement right knee with superficial and deep cultures and retention of hardware Jt Fluid cultures done per DR Rossi + MRSA on 08/28 and then explant on 09/04 Subcut tissue cult positive for MRSA 3. Fever resolved 4. 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 5. Supracondylar fracture just above the knee joint 6. Status post removal of the components and placement of distal femoral replacement with a rotating hinge construct for periprosthetic distal femur fracture above well-fixated right total knee arthroplasty, 08/01/2020. 7. 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 8. Degenerative joint disease. 9. Bandemia. 10. Lactic acidosis. 11. Hypertension/hyperlipidemia. 12. History of chronic kidney disease. Pt refused for right above-knee ampuation so underwent salvage therapy with September 04 2020 Right knee infection with distal femoral replacement rotating-hinge knee implant present Underwent Explantation of femoral component and hinge portion, fixation of a distal tibial shaft fracture and placement of an antibiotic rigid spacer Complications noted tibial shaft fracture was noted with attempted removal of tibial component and fixated Knee hardware in place No cultures available from September 04, 2020 Plan Plan of Care Patient underwent complicated surgery on September 04, 2020 Operative note reviewed Discussed with Dr. Rossi Cont Daptomycin 10mg/kg daily (08/30) and Rifampin ( 08/30), rifampin is for synergy only Pharmacy to assist with drug drug interactions for rifampin with other meds Follow up labs and cultures. Minocycline sensitive though JC 4 PICC line Wound care as directed by Orthopedics. PT and OT as directed Continue supportive care. Overall prognosis poor YAN RIOS MD Sep 11, 2020 08:36
--- NOTE | 2020-09-11 08:45 | PDOC ---
PROGRESS NOTES Date of Service: DATE: 09/11/20 TIME: 08:45 Chief Complaint Chief Complaint ASSESSMENT Right knee swelling and discharge and pain after 2 recent knee replacements. Ms. Hairston is a 89 old female periprosthetic distal femur fracture above well fixated right total knee arthroplasty with minimal bone available for distal fixation. JULY 2020 She had removal of components and placement of a distal femoral replacement with rotating hinge construct. FEVER T MAX 101.6F 6-17 SEPSIS PLAN ADMIT hold off on antibiotics until he takes the patient to surgery Postoperatively, she is going to need wound care, PT, OT and probably jail facility. ID CONSULT BLOOD CULTURES Operative procedure: Irrigation and debridement right knee with superficial and deep cultures and retention of hardware 6-18 6-18 hold off on antibiotics until he takes the patient to surgery Postoperatively, she is going to need wound care, PT, OT and probably jail facility. ID CONSULT BLOOD CULTURES Operative procedure: Irrigation and debridement right knee with superficial and deep cultures and retention of hardware 6-18 37 min pt exam, chart review, > 50% of time spent with exam, chart review, pt care coordination 6-19 emperic iv antibiotics Postoperatively, she is going to need wound care, PT, OT and probably jail facility. ID CONSULT BLOOD CULTURES Operative procedure: Irrigation and debridement right knee with superficial and deep cultures and retention of hardware 6-18 38 min pt exam, chart review, > 50% of time spent with exam, chart review, pt care coordination 6-20 pain improving emperic iv antibiotics Postoperatively, wound care, PT, OT and probably jail facility. ID CONSULT BLOOD CULTURES Operative procedure: Irrigation and debridement right knee with superficial and deep cultures and retention of hardware 6-18 Procedure Result GRAM STAIN Final Final GRAM POS COCCI CLUSTERS:MODERATE RBC:MANY SQUAMOUS EPI CELL:NOT APPLICABLE PMN (WBCs):MANY Unless otherwise specified, Testing Performed by: [address] [address] For Inquires, the Physician may contact the Microbiology department at [phone] ANAEROBIC-AEROBIC CULTURE Preliminary Preliminary MANY [STAPHYLOCOCCUS AUREUS (MRSA)] on 08/29/20 at 1351 STAPHYLOCOCCUS AUREUS (MRSA) ANTIMICROBIAL SUSCEPTIBILITY Preliminary Comment POS JC TYPE 38 STAPHYLOCOCCUS AUREUS (MRSA) ANTIBIOTIC RESULT INTERPRETATION AZITHROMYCIN >4 R CLINDAMYCIN <=0.25 R* CEFOXITIN SCREEN >4 POS CIPROFLOXACIN >2 R CEFTAROLINE 1 S DAPTOMYCIN 1 S ERYTHROMYCIN >4 R GENTAMICIN >8 R INDUCIBLE CLINDAMYCIN >4/0.5 POS LINEZOLID 2 S LEVOFLOXACIN >4 R OXACILLIN >2 R PENICILLIN >2 R* RIFAMPIN <=1 S TRIMETHOPRIM/SULFAMETHOXAZOLE >2/38 R TETRACYCLINE >8 R RUN DATE: 08/30/20 [facility] *LIVE* PAGE 2 RUN TIME: 913 Specimen Inquiry SPEC: [id number] PATIENT: MARIKAYONIS [id number] (Continued) Procedure Result CONTINUED ON NEXT PAGE RUN DATE: 08/30/20 [facility] *LIVE* PAGE 3 RUN TIME: 0914 Specimen Inquiry SPEC: [id number] PATIENT: YONIS HAIRSTON [id number] (Continued) SPEC #: [id number] OFE: 08/27/20 STATUS: RES REQ #: [id number] RECD: 08/28/[address]: JUDIE HUBBARD III, DO SOURCE: LEG ENTR: 08/28/[address]: YAN RIOS [facility] De Jesus MD ORDERED: ANAER/AEROB/GS COMMENTS: R LEG SUBCUTANEOUS --------- --- Procedure Result GRAM STAIN Final Final GRAM POS COCCI CLUSTERS:MODERATE RBC:MODERATE SQUAMOUS EPI CELL:RARE PMN (WBCs):MANY Unless otherwise specified, Testing Performed by: [address] [address] For Inquires, the Physician may contact the Microbiology department at [phone] ANAEROBIC-AEROBIC CULTURE Preliminary Preliminary MANY [STAPHYLOCOCCUS AUREUS (MRSA)] on 08/29/20 at 1351 SEE CULTURE AN663 FOR SUSCEPTIBILITY RESULTS STAPHYLOCOCCUS AUREUS (MRSA) Unless otherwise specified, Testing Performed by: [facility] [address] [place] [address] For Inquires, the Physician may contact the Microbiology department at [phone] ---- -------- 36 min pt exam, chart review, > 50% of time spent with exam, chart review, pt care coordination 6-21 pain improving emperic iv antibiotics Postoperatively, wound care, PT, OT and probably jail facility. ID CONSULT BLOOD CULTURES Operative procedure: Irrigation and debridement right knee with superficial and deep cultures and retention of hardware 18 Procedure Result GRAM STAIN Final Final GRAM POS COCCI CLUSTERS:MODERATE RBC:MANY SQUAMOUS EPI CELL:NOT APPLICABLE PMN (WBCs):MANY Unless otherwise specified, Testing Performed by: [facility] [address] [place] [address] For Inquires, the Physician may contact the Microbiology department at [phone] ANAEROBIC-AEROBIC CULTURE Preliminary Preliminary MANY [STAPHYLOCOCCUS AUREUS (MRSA)] on 06/19/21 at 1351 STAPHYLOCOCCUS AUREUS (MRSA) ANTIMICROBIAL SUSCEPTIBILITY Preliminary Comment POS JC TYPE 38 STAPHYLOCOCCUS AUREUS (MRSA) ANTIBIOTIC RESULT INTERPRETATION AZITHROMYCIN >4 R CLINDAMYCIN <=0.25 R* CEFOXITIN SCREEN >4 POS CIPROFLOXACIN >2 R CEFTAROLINE 1 S DAPTOMYCIN 1 S ERYTHROMYCIN >4 R GENTAMICIN >8 R INDUCIBLE CLINDAMYCIN >4/0.5 POS LINEZOLID 2 S LEVOFLOXACIN >4 R OXACILLIN >2 R PENICILLIN >2 R* RIFAMPIN <=1 S TRIMETHOPRIM/SULFAMETHOXAZOLE >2/38 R TETRACYCLINE >8 R RUN DATE: 08/30/20 [facility] *LIVE* PAGE 2 RUN TIME: 913 Specimen Inquiry SPEC: [id number] PATIENT: YONIS HAIRSTON [id number] (Continued) ------ ------ Procedure Result CONTINUED ON NEXT PAGE RUN DATE: 08/30/20 [facility] *LIVE* PAGE 3 RUN TIME: 913 Specimen Inquiry SPEC: [id number] PATIENT: YONIS HAIRSTON [id number] (Continued) SPEC #: [id number] OFE: 08/27/20 STATUS: RES REQ #: [id number] RECD: 08/28/[address]: JUDIE HUBBARD III, DO SOURCE: LEG ENTR: 08/28/[address]: YAN RIOS MD [facility]: WOUND PULS,BEVERLY De Jesus MD ORDERED: ANAER/AERERIC/GS COMMENTS: R LEG SUBCUTANEOUS Procedure Result GRAM STAIN Final Final GRAM POS COCCI CLUSTERS:MODERATE RBC:MODERATE SQUAMOUS EPI CELL:RARE PMN (WBCs):MANY Unless otherwise specified, Testing Performed by: [address] [address] For Inquires, the Physician may contact the Microbiology department at [phone] ANAEROBIC-AEROBIC CULTURE Preliminary Preliminary MANY [STAPHYLOCOCCUS AUREUS (MRSA)] on 08/29/20 at 1351 SEE CULTURE AN663 FOR SUSCEPTIBILITY RESULTS STAPHYLOCOCCUS AUREUS (MRSA) Unless otherwise specified, Testing Performed by: [address] [address] For Inquires, the Physician may contact the Microbiology department at [phone] 26 min pt exam, chart review, > 50% of time spent with exam, chart review, pt care coordination Cont Daptomycin higher dose 10mg/kg daily (08/30) and Rifampin ( 08/30). Avoid IV vancomycin due to BERHANE . monitor CK closely Follow up labs and cultures. 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 6 pain improving emperic iv antibiotics Postoperatively, wound care, PT, OT and probably jail facility. ID CONSULT BLOOD CULTURES Operative procedure: Irrigation and debridement right knee with superficial and deep cultures and retention of hardware 08-28 Procedure Result GRAM STAIN Final Final GRAM POS COCCI CLUSTERS:MODERATE RBC:MANY SQUAMOUS EPI CELL:NOT APPLICABLE PMN (WBCs):MANY Unless otherwise specified, Testing Performed by: [address] [address] For Inquires, the Physician may contact the Microbiology department at [phone] ANAEROBIC-AEROBIC CULTURE Preliminary Preliminary MANY [STAPHYLOCOCCUS AUREUS (MRSA)] on 08/29/20 at 1351 STAPHYLOCOCCUS AUREUS (MRSA) ANTIMICROBIAL SUSCEPTIBILITY Preliminary Comment POS JC TYPE 38 STAPHYLOCOCCUS AUREUS (MRSA) ANTIBIOTIC RESULT INTERPRETATION AZITHROMYCIN >4 R CLINDAMYCIN <=0.25 R* CEFOXITIN SCREEN >4 POS CIPROFLOXACIN >2 R CEFTAROLINE 1 S DAPTOMYCIN 1 S ERYTHROMYCIN >4 R GENTAMICIN >8 R INDUCIBLE CLINDAMYCIN >4/0.5 POS LINEZOLID 2 S LEVOFLOXACIN >4 R OXACILLIN >2 R PENICILLIN >2 R* RIFAMPIN <=1 S TRIMETHOPRIM/SULFAMETHOXAZOLE >38 R TETRACYCLINE >8 R RUN DATE: 08/30/20 [facility] *LIVE* PAGE 2 RUN TIME: 913 Specimen Inquiry SPEC: [id number] PATIENT: ANA LUISAYONIS CASAS [id number] (Continued) Procedure Result CONTINUED ON NEXT PAGE RUN DATE: 08/30/20 [facility] *LIVE* PAGE 3 RUN TIME: 913 Specimen Inquiry SPEC: [id number] PATIENT: OYNIS HAIRSTON [id number] (Continued) SPEC #: [id number] OFE: 08/27/20 STATUS: RES REQ #: [id number] RECD: 08/28/20-[address]: JUDIE HUBBARD III, DO SOURCE: LEG ENTR: 08/28/[address]: YAN RIOS MD [facility]: WOUND BEVERLY SPENCER MD ORDERED: ANAER/CHAI/KARI COMMENTS: R LEG SUBCUTANEOUS Procedure Result GRAM STAIN Final Final GRAM POS COCCI CLUSTERS:MODERATE RBC:MODERATE SQUAMOUS EPI CELL:RARE PMN (WBCs):MANY Unless otherwise specified, Testing Performed by: [address] [address] For Inquires, the Physician may contact the Microbiology department at [phone] ANAEROBIC-AEROBIC CULTURE Preliminary Preliminary MANY [STAPHYLOCOCCUS AUREUS (MRSA)] on 08/29/20 at 1351 SEE CULTURE AN663 FOR SUSCEPTIBILITY RESULTS STAPHYLOCOCCUS AUREUS (MRSA) Unless otherwise specified, Testing Performed by: [address] [address] For Inquires, the Physician may contact the Microbiology department at [phone] 26 min pt exam, chart review, > 50% of time spent with exam, chart review, pt care coordination Cont Daptomycin higher dose 10mg/kg daily (08/30) and Rifampin ( 08/30). Tristin id IV vancomycin due to BERHANE . monitor CK closely Follow up labs and cultures. 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 6 pain improving emperic iv antibiotics Postoperatively, wound care, PT, OT and probably jail facility. ID CONSULT BLOOD CULTURES Operative procedure: Irrigation and debridement right knee with superficial and deep cultures and retention of hardware 6-18 Procedure Result GRAM STAIN Final Final GRAM POS COCCI CLUSTERS:MODERATE RBC:MANY SQUAMOUS EPI CELL:NOT APPLICABLE PMN (WBCs):MANY Unless otherwise specified, Testing Performed by: [address] [address] For Inquires, the Physician may contact the Microbiology department at [phone] ANAEROBIC-AEROBIC CULTURE Preliminary Preliminary MANY [STAPHYLOCOCCUS AUREUS (MRSA)] on 08/29/20 at 1351 STAPHYLOCOCCUS AUREUS (MRSA) ANTIMICROBIAL SUSCEPTIBILITY Preliminary Comment POS JC TYPE 38 STAPHYLOCOCCUS AUREUS (MRSA) ANTIBIOTIC RESULT INTERPRETATION AZITHROMYCIN >4 R CLINDAMYCIN <=0.25 R* CEFOXITIN SCREEN >4 POS CIPROFLOXACIN >2 R CEFTAROLINE 1 S DAPTOMYCIN 1 S ERYTHROMYCIN >4 R GENTAMICIN >8 R INDUCIBLE CLINDAMYCIN >4/0.5 POS LINEZOLID 2 S LEVOFLOXACIN >4 R OXACILLIN >2 R PENICILLIN >2 R* RIFAMPIN <=1 S TRIMETHOPRIM/SULFAMETHOXAZOLE >2/38 R TETRACYCLINE >8 R --------- --- RUN DATE: 08/30/20 [facility] *LIVE* PAGE 2 RUN TIME: 913 Specimen Inquiry SPEC: [id number] PATIENT: YONIS HAIRSTON [id number] (Continued) Procedure Result CONTINUED ON NEXT PAGE RUN DATE: 08/30/20 [facility] *LIVE* PAGE 3 RUN TIME: 913 Specimen Inquiry -- SPEC: [id number] PATIENT: YONIS HAIRSTON [id number] (Continued) SPEC #: [id number] OFE: 08/27/20 STATUS: RES REQ #: [id number] RECD: 08/28/20-[address]: JUDIE HUBBARD III, DO SOURCE: LEG ENTR: 08/28/[address]: YAN RIOS MD [facility]: WOUND BEVERLY SPENCER MD ORDERED: SHAHEEN/CHAI/KARI COMMENTS: R LEG SUBCUTANEOUS Procedure Result ------- ----- GRAM STAIN Final Final GRAM POS COCCI CLUSTERS:MODERATE RBC:MODERATE SQUAMOUS EPI CELL:RARE PMN (WBCs):MANY Unless otherwise specified, Testing Performed by: [address] [address] For Inquires, the Physician may contact the Microbiology department at [phone] ANAEROBIC-AEROBIC CULTURE Preliminary Preliminary MANY [STAPHYLOCOCCUS AUREUS (MRSA)] on 08/29/20 at 1351 SEE CULTURE AN663 FOR SUSCEPTIBILITY RESULTS STAPHYLOCOCCUS AUREUS (MRSA) Unless otherwise specified, Testing Performed by: [address] [address] For Inquires, the Physician may contact the Microbiology department at [phone] 36 min pt exam, chart review, > 50% of time spent with exam, chart review, pt care coordination Cont Daptomycin higher dose 10mg/kg daily (08/30) and Rifampin ( 08/30). Avoid IV vancomycin due to BERHANE . monitor CK closely Follow up labs and cultures. 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 further surgical plans per orthopedics if pt is a candidate, . Difficult surgical candidate due to femur implant.... Despite aggressive medical management patient is at high risk of limb loss 6-25 pain improving emperic iv antibiotics Postoperatively, wound care, PT, OT and probably jail facility. ID CONSULT BLOOD CULTURES Operative procedure: Irrigation and debridement right knee with superficial and deep cultures and retention of hardware 18 Procedure Result GRAM STAIN Final Final GRAM POS COCCI CLUSTERS:MODERATE RBC:MANY SQUAMOUS EPI CELL:NOT APPLICABLE PMN (WBCs):MANY Unless otherwise specified, Testing Performed by: [address] [address] For Inquires, the Physician may contact the Microbiology department at [phone] ANAEROBIC-AEROBIC CULTURE Preliminary Preliminary MANY [STAPHYLOCOCCUS AUREUS (MRSA)] on 08/29/20 at 1351 STAPHYLOCOCCUS AUREUS (MRSA) ANTIMICROBIAL SUSCEPTIBILITY Preliminary Comment POS JC TYPE 38 STAPHYLOCOCCUS AUREUS (MRSA) ANTIBIOTIC RESULT INTERPRETATION AZITHROMYCIN >4 R CLINDAMYCIN <=0.25 R* CEFOXITIN SCREEN >4 POS CIPROFLOXACIN >2 R CEFTAROLINE 1 S DAPTOMYCIN 1 S ERYTHROMYCIN >4 R GENTAMICIN >8 R INDUCIBLE CLINDAMYCIN >4/0.5 POS LINEZOLID 2 S LEVOFLOXACIN >4 R OXACILLIN >2 R PENICILLIN >2 R* RIFAMPIN <=1 S TRIMETHOPRIM/SULFAMETHOXAZOLE >2/38 R TETRACYCLINE >8 R RUN DATE: 08/30/20 [facility] *LIVE* PAGE 2 RUN TIME: 913 Specimen Inquiry SPEC: [id number] PATIENT: YONIS HAIRSTON [id number] (Continued) Procedure Result CONTINUED ON NEXT PAGE RUN DATE: 08/30/20 [facility] *LIVE* PAGE 3 RUN TIME: 913 Specimen Inquiry SPEC: [id number] PATIENT: YONIS HAIRSTON [id number] (Continued) SPEC #: [id number] OFE: 08/27/20 STATUS: RES REQ #: [id number] RECD: 08/28/[address]: JUDIE HUBBARD III, DO SOURCE: LEG ENTR: 08/28/[address]: YNA RIOS MD [facility]: BEVERLY HAYES MD ORDERED: SHAHEEN/CHAI/KARI COMMENTS: R LEG SUBCUTANEOUS Procedure Result GRAM STAIN Final Final GRAM POS COCCI CLUSTERS:MODERATE RBC:MODERATE SQUAMOUS EPI CELL:RARE PMN (WBCs):MANY Unless otherwise specified, Testing Performed by: [address] [address] For Inquires, the Physician may contact the Microbiology department at [phone] ANAEROBIC-AEROBIC CULTURE Preliminary Preliminary MANY [STAPHYLOCOCCUS AUREUS (MRSA)] on 08/29/20 at 1351 SEE CULTURE AN663 FOR SUSCEPTIBILITY RESULTS STAPHYLOCOCCUS AUREUS (MRSA) Unless otherwise specified, Testing Performed by: [address] [address] For Inquires, the Physician may contact the Microbiology department at [phone] 26 min pt exam, chart review, > 50% of time spent with exam, chart review, pt care coordination Cont Daptomycin higher dose 10mg/kg daily (08/30) and Rifampin ( 08/30). Avoid IV vancomycin due to BERHANE . monitor CK closely Follow up labs and cultures. 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 further surgical plans per orthopedics if pt is a candidate, . Difficult surgical candidate due to femur implant.... Despite aggressive medical management patient is at high risk of limb loss 6-25 pain improving emperic iv antibiotics Postoperatively, wound care, PT, OT and probably jail facility. ID CONSULT BLOOD CULTURES Operative procedure: Irrigation and debridement right knee with superficial and deep cultures and retention of hardware 6-18 Procedure Result GRAM STAIN Final Final GRAM POS COCCI CLUSTERS:MODERATE RBC:MANY SQUAMOUS EPI CELL:NOT APPLICABLE PMN (WBCs):MANY Unless otherwise specified, Testing Performed by: [address] [address] For Inquires, the Physician may contact the Microbiology department at [phone] ANAEROBIC-AEROBIC CULTURE Preliminary Preliminary MANY [STAPHYLOCOCCUS AUREUS (MRSA)] on 08/29/20 at 1351 STAPHYLOCOCCUS AUREUS (MRSA) ANTIMICROBIAL SUSCEPTIBILITY Preliminary Comment POS JC TYPE 38 STAPHYLOCOCCUS AUREUS (MRSA) ANTIBIOTIC RESULT INTERPRETATION AZITHROMYCIN >4 R CLINDAMYCIN <=0.25 R* CEFOXITIN SCREEN >4 POS CIPROFLOXACIN >2 R CEFTAROLINE 1 S DAPTOMYCIN 1 S ERYTHROMYCIN >4 R GENTAMICIN >8 R INDUCIBLE CLINDAMYCIN >4/0.5 POS LINEZOLID 2 S LEVOFLOXACIN >4 R OXACILLIN >2 R PENICILLIN >2 R* RIFAMPIN <=1 S TRIMETHOPRIM/SULFAMETHOXAZOLE >2/38 R TETRACYCLINE >8 R RUN DATE: 08/30/20 [facility] *LIVE* PAGE 2 RUN TIME: 913 Specimen Inquiry SPEC: [id number] PATIENT: YONIS HAIRSTON [id number] (Continued) -------- ---- Procedure Result CONTINUED ON NEXT PAGE RUN DATE: 08/30/20 [facility] *LIVE* PAGE 3 RUN TIME: 913 Specimen Inquiry SPEC: [id number] PATIENT: YONIS HAIRSTON [id number] (Continued) SPEC #: [id number] OFE: 08/27/20 STATUS: RES REQ #: [id number] RECD: 08/28/[address] [facility] [address]: JUDIE HUBBARD III, DO SOURCE: LEG ENTR: 08/28/[address]: YAN RIOS MD [facility]: WOUND PULS,BEVERLY De Jesus MD ORDERED: ANAER/AEROB/GS COMMENTS: R LEG SUBCUTANEOUS Procedure Result GRAM STAIN Final Final GRAM POS COCCI CLUSTERS:MODERATE RBC:MODERATE SQUAMOUS EPI CELL:RARE PMN (WBCs):MANY Unless otherwise specified, Testing Performed by: [address] [address] For Inquires, the Physician may contact the Microbiology department at [phone] ANAEROBIC-AEROBIC CULTURE Preliminary Preliminary MANY [STAPHYLOCOCCUS AUREUS (MRSA)] on 08/29/20 at 1351 SEE CULTURE AN663 FOR SUSCEPTIBILITY RESULTS STAPHYLOCOCCUS AUREUS (MRSA) Unless otherwise specified, Testing Performed by: [address] [address] For Inquires, the Physician may contact the Microbiology department at [phone] 26 min pt exam, chart review, > 50% of time spent with exam, chart review, pt care coordination Cont Daptomycin higher dose 10mg/kg daily (08/30) and Rifampin ( 08/30). Avoid IV vancomycin due to BERHANE . monitor CK closely Follow up labs and cultures. 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 further surgical plans per orthopedics if pt is a candidate, . Difficult surgical candidate due to femur implant.... Despite aggressive medical management patient is at high risk of limb loss family are decided on this could proceed with surgical treatment accordingly and would have to arrange the materials likely with surgery 6- pain improving emperic iv antibiotics Postoperatively, wound care, PT, OT and probably jail facility. ID CONSULT BLOOD CULTURES Operative procedure: Irrigation and debridement right knee with superficial and deep cultures and retention of hardware 08-28 Procedure Result GRAM STAIN Final Final GRAM POS COCCI CLUSTERS:MODERATE RBC:MANY SQUAMOUS EPI CELL:NOT APPLICABLE PMN (WBCs):MANY Unless otherwise specified, Testing Performed by: [address] [address] For Inquires, the Physician may contact the Microbiology department at [phone] ANAEROBIC-AEROBIC CULTURE Preliminary Preliminary MANY [STAPHYLOCOCCUS AUREUS (MRSA)] on 08/29/20 at 1351 STAPHYLOCOCCUS AUREUS (MRSA) ANTIMICROBIAL SUSCEPTIBILITY Preliminary Comment POS JC TYPE 38 STAPHYLOCOCCUS AUREUS (MRSA) ANTIBIOTIC RESULT INTERPRETATION AZITHROMYCIN >4 R CLINDAMYCIN <=0.25 R* CEFOXITIN SCREEN >4 POS CIPROFLOXACIN >2 R CEFTAROLINE 1 S DAPTOMYCIN 1 S ERYTHROMYCIN >4 R GENTAMICIN >8 R INDUCIBLE CLINDAMYCIN >4/0.5 POS LINEZOLID 2 S LEVOFLOXACIN >4 R OXACILLIN >2 R PENICILLIN >2 R* RIFAMPIN <=1 S TRIMETHOPRIM/SULFAMETHOXAZOLE >2/38 R TETRACYCLINE >8 R RUN DATE: 08/30/20 [facility] *LIVE* PAGE 2 RUN TIME: 913 Specimen Inquiry SPEC: [id number] PATIENT: YONIS HAIRSTON Francine [id number] (Continued) Procedure Result CONTINUED ON NEXT PAGE RUN DATE: 08/30/20 [facility] *LIVE* PAGE 3 RUN TIME: 0914 Specimen Inquiry SPEC: [id number] PATIENT: MARIKAYONIS [id number] (Continued) SPEC #: [id number] OFE: 08/27/20 STATUS: RES REQ #: [id number] RECD: 08/28/[address]: JUDIE HUBBARD III, DO SOURCE: LEG ENTR: 08/28/[address]: [facility] De Jesus MD ORDERED: ANAER/AEROB/GS COMMENTS: R LEG SUBCUTANEOUS Procedure Result GRAM STAIN Final Final GRAM POS COCCI CLUSTERS:MODERATE RBC:MODERATE SQUAMOUS EPI CELL:RARE PMN (WBCs):MANY Unless otherwise specified, Testing Performed by: [facility] [place] [address] For Inquires, the Physician may contact the Microbiology department at [phone] ANAEROBIC-AEROBIC CULTURE Preliminary Preliminary MANY [STAPHYLOCOCCUS AUREUS (MRSA)] on 08/29/20 at 1351 SEE CULTURE AN663 FOR SUSCEPTIBILITY RESULTS STAPHYLOCOCCUS AUREUS (MRSA) Unless otherwise specified, Testing Performed by: [facility] [address] [place] [address] For Inquires, the Physician may contact the Microbiology department at [phone] 26 min pt exam, chart review, > 50% of time spent with exam, chart review, pt care coordination C 6-27 pain improving emperic iv antibiotics Postoperatively, wound care, PT, OT and probably jail facility. ID CONSULT BLOOD CULTURES Operative procedure: Irrigation and debridement right knee with superficial and deep cultures and retention of hardware 6-18 Procedure Result GRAM STAIN Final Final GRAM POS COCCI CLUSTERS:MODERATE RBC:MANY SQUAMOUS EPI CELL:NOT APPLICABLE PMN (WBCs):MANY Unless otherwise specified, Testing Performed by: [facility] [address] [place] [address] For Inquires, the Physician may contact the Microbiology department at [phone] ANAEROBIC-AEROBIC CULTURE Preliminary Preliminary MANY [STAPHYLOCOCCUS AUREUS (MRSA)] on 08/29/20 at 1351 STAPHYLOCOCCUS AUREUS (MRSA) ANTIMICROBIAL SUSCEPTIBILITY Preliminary Comment POS JC TYPE 38 STAPHYLOCOCCUS AUREUS (MRSA) ANTIBIOTIC RESULT INTERPRETATION AZITHROMYCIN >4 R CLINDAMYCIN <=0.25 R* CEFOXITIN SCREEN >4 POS CIPROFLOXACIN >2 R CEFTAROLINE 1 S DAPTOMYCIN 1 S ERYTHROMYCIN >4 R GENTAMICIN >8 R INDUCIBLE CLINDAMYCIN >4/0.5 POS LINEZOLID 2 S LEVOFLOXACIN >4 R OXACILLIN >2 R PENICILLIN >2 R* RIFAMPIN <=1 S TRIMETHOPRIM/SULFAMETHOXAZOLE >2/38 R TETRACYCLINE >8 R RUN DATE: 08/30/20 [facility] *LIVE* PAGE 2 RUN TIME: 913 Specimen Inquiry -- SPEC: [id number] PATIENT: MARIKAYONIS [id number] (Continued) Procedure Result CONTINUED ON NEXT PAGE RUN DATE: 08/30/20 [facility] *LIVE* PAGE 3 RUN TIME: 913 Specimen Inquiry SPEC: [id number] PATIENT: YONIS HAIRSTON [id number] (Continued) SPEC #: [id number] OFE: 08/27/20-2019 STATUS: RES REQ #: [id number] RECD: 08/28/20-[address]: CASTLE,NIAL K III DO SOURCE: LEG ENTR: 08/28/[address]: YAN RIOS MD [facility]: WOUND PULS,BEVERLY De Jesus MD ORDERED: SHAHEEN/CHAI/KARI COMMENTS: R LEG SUBCUTANEOUS Procedure Result -- GRAM STAIN Final Final GRAM POS COCCI CLUSTERS:MODERATE RBC:MODERATE SQUAMOUS EPI CELL:RARE PMN (WBCs):MANY Unless otherwise specified, Testing Performed by: [address] [address] For Inquires, the Physician may contact the Microbiology department at [phone] ANAEROBIC-AEROBIC CULTURE Preliminary Preliminary MANY [STAPHYLOCOCCUS AUREUS (MRSA)] on 08/29/20 at 1351 SEE CULTURE AN663 FOR SUSCEPTIBILITY RESULTS STAPHYLOCOCCUS AUREUS (MRSA) Unless otherwise specified, Testing Performed by: [address] [address] For Inquires, the Physician may contact the Microbiology department at [phone] 36 min pt exam, chart review, > 50% of time spent with exam, chart review, pt care coordination Cont Daptomycin higher dose 10mg/kg daily (08/30) and Rifampin ( 08/30). Avoid IV vancomycin due to BERHANE . monitor CK closely Follow up labs and cultures. 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 further surgical plans per orthopedics if pt is a candidate, . Difficult surgical candidate due to femur implant.... Despite aggressive medical management patient is at high risk of limb loss family are decided on this could proceed with surgical treatment accordingly and would have to arrange the materials likely with surgery Cont Daptomycin 10mg/kg daily (08/30) and Rifampin ( 08/30), rifampin is for [facility] to assist with drug drug interactions for rifampin with other meds 6-27 pain improving emperic iv antibiotics Postoperatively, wound care, PT, OT and probably jail facility. ID CONSULT BLOOD CULTURES Operative procedure: Irrigation and debridement right knee with superficial and deep cultures and retention of hardware 18 ---- -------- Procedure Result GRAM STAIN Final Final GRAM POS COCCI CLUSTERS:MODERATE RBC:MANY SQUAMOUS EPI CELL:NOT APPLICABLE PMN (WBCs):MANY Unless otherwise specified, Testing Performed by: [address] [address] For Inquires, the Physician may contact the Microbiology department at [phone] ANAEROBIC-AEROBIC CULTURE Preliminary Preliminary MANY [STAPHYLOCOCCUS AUREUS (MRSA)] on 08/29/20 at 1351 STAPHYLOCOCCUS AUREUS (MRSA) ANTIMICROBIAL SUSCEPTIBILITY Preliminary Comment POS JC TYPE 38 STAPHYLOCOCCUS AUREUS (MRSA) ANTIBIOTIC RESULT INTERPRETATION AZITHROMYCIN >4 R CLINDAMYCIN <=0.25 R* CEFOXITIN SCREEN >4 POS CIPROFLOXACIN >2 R CEFTAROLINE 1 S DAPTOMYCIN 1 S ERYTHROMYCIN >4 R GENTAMICIN >8 R INDUCIBLE CLINDAMYCIN >4/0.5 POS LINEZOLID 2 S LEVOFLOXACIN >4 R OXACILLIN >2 R PENICILLIN >2 R* RIFAMPIN <=1 S TRIMETHOPRIM/SULFAMETHOXAZOLE >2/38 R TETRACYCLINE >8 R ont Daptomycin higher dose 10mg/kg daily (08/30) and Rifampin ( 08/30). Avoid IV vancomycin due to BERHANE . monitor CK closely Follow up labs and cultures. 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 further surgical plans per orthopedics if pt is a candidate, . Difficult surgical candidate due to femur implant.... Despite aggressive medical management patient is at high risk of limb loss History of Present Illness History of Present Illness 09/09 , Dapto planned for 6 weeks, discussed wt ID Vasc following, may need angio PICC was placed plan to send to acute rehab soon cotn PT and OT 09-10 ====== pain improving emperic iv antibiotics Postoperatively, wound care, PT, OT and probably jail facility. ID CONSULT BLOOD CULTURES Operative procedure: Irrigation and debridement right knee with superficial and deep cultures and retention of hardware 6-18 MRSA Complicated RT Knee arthroplasty infection ( R to bactrim and Doxycycline, S to Rifampin) Right knee postop site drainage,hematoma with infection Dapto planned for 6 weeks, discussed wt ID Vasc following, may need angio PICC was placed plan to send to acute rehab soon d/w RN 7 ====== pod # 7 MILD hypotension, will monitor pain improving emperic iv antibiotics Postoperatively, wound care, PT, OT and probably jail facility. ID CONSULT BLOOD CULTURES Operative procedure: Irrigation and debridement right knee with superficial and deep cultures and retention of hardware 6-18 MRSA Complicated RT Knee arthroplasty infection ( R to bactrim and Doxycycline, S to Rifampin) Right knee postop site drainage,hematoma with infection Dapto planned for 6 weeks, discussed wt ID Vasc following, may need angio PICC was placed plan to send to acute rehab soon d/w RN Pt refused for right above-knee ampuation so underwent salvage therapy Operative Note Operative Note Operative Note Date of surgery: 09/04/2020 Preoperative diagnosis: Right knee infection with distal femoral replacement rotating-hinge knee implant present Postoperative diagnosis: Same with well fixed implants Operative procedure: Explantation of femoral component and hinge portion, fixation of a distal tibial shaft fracture and placement of an antibiotic rigid spacer Surgeon: Flo Operations Administrative Assistant:Osmany batista assist Anesthesia: General Estimated blood loss: 200 cc Complications: Tibial shaft fracture was noted with attempted removal of tibial component and fixated Vitals Vitals Vital Signs Date Time Temp Pulse Resp B/P (MAP) Pulse Ox O2 Delivery O2 Flow Rate FiO2 09/11/20 07:00 98.0 79 16 116/56 (76) Room Air 98.0 09/11/20 03:00 96 Physical Exam Physical Exam GENERAL: Alert, oriented x 3, pleasant female, lying in bed comfortably, in no acute distress. HEENT: Normocephalic, atraumatic. Anicteric. NECK: Supple. No JVD. LUNGS: Clear bilaterally. No wheezing. HEART: S1, S2. No gallops or murmurs. ABDOMEN: Soft, obese, nontender, nondistended. EXTREMITIES: Right lower extremity swelling present. Dressing in place not taken down NEUROLOGIC: Alert, oriented x 3, grossly nonfocal. PSYCHIATRIC: Calm and cooperative. DERMATOLOGIC: Warm, dry, no generalized rash. PICC site good General: Alert, Oriented X3, Cooperative, No acute distress Heart: Regular rate Lungs: Clear Abdomen: Normal bowel sounds, Soft Extremities: No cyanosis Labs LABS Operative Note Operative Note Operative Note Date of surgery: 09/04/2020 Preoperative diagnosis: Right knee infection with distal femoral replacement rotating-hinge knee implant present Postoperative diagnosis: Same with well fixed implants Operative procedure: Explantation of femoral component and hinge portion, fixation of a distal tibial shaft fracture and placement of an antibiotic rigid spacer Surgeon: Flo Operations Administrative Assistant:Osmany batista assist Anesthesia: General Estimated blood loss: 200 cc Complications: Tibial shaft fracture was noted with attempted removal of tibial component and fixated GRAM STAIN Final Final GRAM POS COCCI CLUSTERS:MODERATE RBC:MANY SQUAMOUS EPI CELL:NOT APPLICABLE PMN (WBCs):MANY Unless otherwise specified, Testing Performed by: [address] [address] For Inquires, the Physician may contact the Microbiology department at [phone] ANAEROBIC-AEROBIC CULTURE Final Final MANY [STAPHYLOCOCCUS AUREUS (MRSA)] on 08/29/20 at 1351 MINOCYCLINE 4.0 ug/ml SENSITIVE NO ANAEROBIC ORGANISMS ISOLATED on 09/02/20 at 0828 STAPHYLOCOCCUS AUREUS (MRSA) * This is a corrected result. * A prior result that was reported as final has been changed. ANTIMICROBIAL SUSCEPTIBILITY Final Comment POS JC TYPE 38 STAPHYLOCOCCUS AUREUS (MRSA) ANTIBIOTIC RESULT INTERPRETATION AZITHROMYCIN >4 R CLINDAMYCIN <=0.25 R* CEFOXITIN SCREEN >4 POS CIPROFLOXACIN >2 R CEFTAROLINE 1 S DAPTOMYCIN 1 S ERYTHROMYCIN >4 R GENTAMICIN >8 R INDUCIBLE CLINDAMYCIN >4/0.5 POS LINEZOLID 2 S Laboratory Tests Test 09/10/20 18:15 SARS-CoV-2 RNA (PRISCILLA) Negative (Negative) SARS-CoV-2 Antigen (Rapid) Negative (NEGATIVE) Assessment and Plan Assessmemt and Plan Problems Medical Problems: (1) Cellulitis Status: Acute Comment Review of Relevant I have reviewed the following items fiorella (where applicable) has been applied. Labs Laboratory Tests Test 09/10/20 03:35 09/10/20 18:15 White Blood Count 8.1 x10^3/uL (4.0-11.0) Red Blood Count 2.90 x10^6/uL (3.50-5.40) Hemoglobin 9.0 g/dL (12.0-15.5) Hematocrit 27.0 % (36.0-47.0) Mean Corpuscular Volume 93 fL (79-100) Mean Corpuscular Hemoglobin 31 pg (25-35) Mean Corpuscular Hemoglobin Concent 33 g/dL (31-37) Red Cell Distribution Width 15.6 % (11.5-14.5) Platelet Count 317 x10^3/uL (140-400) Neutrophils (%) (Auto) 46 % (31-73) Lymphocytes (%) (Auto) 29 % (24-48) Monocytes (%) (Auto) 22 % (0-9) Eosinophils (%) (Auto) 2 % (0-3) Basophils (%) (Auto) 1 % (0-3) Neutrophils # (Auto) 3.7 x10^3/uL (1.8-7.7) Lymphocytes # (Auto) 2.3 x10^3/uL (1.0-4.8) Monocytes # (Auto) 1.8 x10^3/uL (0.0-1.1) Eosinophils # (Auto) 0.2 x10^3/uL (0.0-0.7) Basophils # (Auto) 0.1 x10^3/uL (0.0-0.2) Sodium Level 136 mmol/L (136-145) Potassium Level 4.3 mmol/L (3.5-5.1) Chloride Level 103 mmol/L (98-107) Carbon Dioxide Level 29 mmol/L (21-32) Anion Gap 4 (6-14) Blood Urea Nitrogen 27 mg/dL (7-20) Creatinine 1.0 mg/dL (0.6-1.0) Estimated GFR (Cockcroft-Gault) 52.2 BUN/Creatinine Ratio 27 (6-20) Glucose Level 109 mg/dL (70-99) Calcium Level 8.1 mg/dL (8.5-10.1) Total Bilirubin 0.4 mg/dL (0.2-1.0) Aspartate Amino Transf (AST/SGOT) 12 U/L (15-37) Alanine Aminotransferase (ALT/SGPT) 15 U/L (14-59) Alkaline Phosphatase 109 U/L (46-116) Total Protein 5.1 g/dL (6.4-8.2) Albumin 1.6 g/dL (3.4-5.0) Albumin/Globulin Ratio 0.5 (1.0-1.7) SARS-CoV-2 RNA (PRISCILLA) Negative (Negative) SARS-CoV-2 Antigen (Rapid) Negative (NEGATIVE) Laboratory Tests Test 09/10/20 18:15 SARS-CoV-2 RNA (PRISCILLA) Negative (Negative) SARS-CoV-2 Antigen (Rapid) Negative (NEGATIVE) Microbiology 08/27/20 Gram Stain - Final, Complete 08/27/20 Aerobic and Anaerobic Culture - Final, Complete 08/27/20 Antimicrobic Susceptibility - Final, Complete 08/27/20 AFB Specimen Processing Tissue - Final, Resulted 08/27/20 Acid Fast Bacilli Culture, Resulted Pending 08/27/20 Gram Stain - Final, Resulted 08/27/20 Fungal Culture, Resulted Pending 08/27/20 Fungal Culture Result 1, Resulted Pending 08/27/20 Blood Culture - Final, Complete NO GROWTH AFTER 5 DAYS Medications Current Medications Vancomycin HCl 1 gm/Sodium Chloride 250 ml @ 166.667 mls/hr 1X ONCE IV ; Start 08/27/20 at 14:00; Stop 08/27/20 at 14:04; Status DC Vancomycin HCl 1.75 gm/Sodium Chloride 500 ml @ 250 mls/hr 1X ONCE IV Last administered on 08/27/20at 15:13; Start 08/27/20 at 14:30; Stop 08/27/20 at 16:29; Status DC Sodium Chloride 1,000 ml @ 1,000 mls/hr 1X ONCE IV Last administered on 08/27/20at 15:12; Start 08/27/20 at 14:15; Stop 08/27/20 at 15:14; Status DC Fentanyl Citrate (Fentanyl 2ml Vial) 25 mcg PRN Q5MIN PRN IVP MILD PAIN 1-3; Start 08/27/20 at 16:30; Stop 08/28/20 at 16:29; Status DC Fentanyl Citrate (Fentanyl 2ml Vial) 50 mcg PRN Q5MIN PRN IVP MODERATE PAIN 4-6 Last administered on 08/27/20at 21:50; Start 08/27/20 at 16:30; Stop 08/28/20 at 16:29; Status DC Morphine Sulfate (Morphine Sulfate) 1 mg PRN Q10MIN PRN IVP SEVERE PAIN 7-10 Last administered on 08/27/20at 22:13; Start 08/27/20 at 16:30; Stop 08/28/20 at 16:29; Status DC Ringer's Solution 1,000 ml @ 30 mls/hr Q24H IV ; Start 08/27/20 at 16:30; Stop 08/28/20 at 04:29; Status DC Hydromorphone HCl (Dilaudid) 0.5 mg PRN Q10MIN PRN IVP SEVERE PAIN 7-10, 2nd CHOICE Last administered on 08/27/20at 22:24; Start 08/27/20 at 16:30; Stop 08/28/20 at 16:29; Status DC Prochlorperazine Edisylate (Compazine) 5 mg PACU PRN PRN IVP NAUSEA, MRX1; Start 08/27/20 at 16:30; Stop 08/28/20 at 16:29; Status DC Propofol (Diprivan) 200 mg STK-MED ONCE IV ; Start 08/27/20 at 19:50; Stop 08/11 09/30 at 19:51; Status DC Lidocaine HCl (Lidocaine Pf 2% Vial) 5 ml STK-MED ONCE .ROUTE ; Start 08/27/20 at 19:50; Stop 08/27/20 at 19:51; Status DC Fentanyl Citrate (Fentanyl 2ml Vial) 100 mcg STK-MED ONCE .ROUTE ; Start 08/27/20 at 19:58; Stop 08/27/20 at 19:58; Status DC Ondansetron HCl (Zofran) 4 mg STK-MED ONCE .ROUTE ; Start 08/27/20 at 20:36; Stop 08/27/20 at 20:37; Status DC Dexamethasone Sodium Phosphate (Decadron) 4 mg STK-MED ONCE .ROUTE ; Start 08/27/20 at 20:36; Stop 08/27/20 at 20:37; Status DC Phenylephrine HCl (PHENYLEPHRINE in 0.9% NACL PF) 1 mg STK-MED ONCE IV ; Start 08/27/20 at 20:37; Stop 08/27/20 at 20:37; Status DC Sevoflurane (Ultane) 60 ml STK-MED ONCE IH ; Start 08/27/20 at 21:22; Stop 08/27/20 at 21:22; Status DC Fentanyl Citrate (Fentanyl 2ml Vial) 100 mcg STK-MED ONCE .ROUTE ; Start 08/27/20 at 21:45; Stop 08/27/20 at 21:45; Status DC Morphine Sulfate (Morphine Sulfate) 2 mg STK-MED ONCE .ROUTE ; Start 08/27/20 at 22:01; Stop 08/27/20 at 22:01; Status DC Hydromorphone HCl (Dilaudid) 2 mg STK-MED ONCE .ROUTE ; Start 08/27/20 at 22:21; Stop 08/27/20 at 22:21; Status DC Sodium Chloride 1,000 ml @ 75 mls/hr [id number] IV Last administered on 08/30/20at 02:38; Start 08/28/20 at 09:45; Stop 08/30/20 at 15:48; Status DC Daptomycin 410 mg/ Sodium Chloride 50 ml @ 100 mls/hr Q24H IV Last administered on 08/29/20at 13:15; Start 08/28/20 at 12:30; Stop 08/30/20 at 10:11; Status DC Piperacillin Sod/ Tazobactam Sod 3.375 gm/Sodium Chloride 50 ml @ 100 mls/hr Q6HRS IV Last administered on 08/30/20at 05:57; Start 08/28/20 at 12:00; Stop 08/30/20 at 10:11; Status DC Acetaminophen (Tylenol) 1,000 mg PRN BID PRN PO MILD PAIN / TEMP > 100.3'F Last administered on 09/05/20at 00:48; Start 08/28/20 at 14:45; Stop 09/05/20 at 13:21; Status DC Docusate Sodium (Colace) 100 mg BID PO Last administered on 09/10/20at 08:56; Start 08/28/20 at 21:00 Levothyroxine Sodium (Synthroid) 88 mcg DAILY07 PO Last administered on 09/11/20at 05:59; Start 08/29/20 at 07:00 Simvastatin (Zocor) 20 mg HS PO Last administered on 09/10/20at 20:07; Start 08/28/20 at 21:00 Tramadol HCl (Ultram) 50 mg PRN Q4HRS PRN PO MODERATE PAIN Last administered on 08/28/20at 15:01; Start 08/28/20 at 14:45 Vitamin D (Vitamin D3) 2,000 unit DAILY PO Last administered on 09/11/20at 08:25; Start 08/29/20 at 09:00 Non-Formulary Medication (Melatonin ) 1 tab QHS PO ; Start 08/28/20 at 21:00; Status UNV Multivitamins (Thera M Plus) 1 tab DAILY PO Last administered on 09/11/20at 08:25; Start 08/29/20 at 09:00 Pantoprazole Sodium (Protonix) 40 mg DAILYAC PO Last administered on 09/11/20at 05:59; Start 08/29/20 at 07:30 Oxybutynin Chloride (Ditropan) 5 mg [id number] PO Last administered on 09/11/20 08:25; Start 08/28/20 at 21:00 Lactobacillus Rhamnosus (Culturelle) 1 cap BID PO Last administered on 09/11/20at 08:25; Start 08/29/20 at 21:00 Rifampin (Rifadin) 300 mg BID PO Last administered on 09/11/20at 08:25; Start 08/30/20 at 11:00 Daptomycin 550 mg/ Sodium Chloride 50 ml @ 100 mls/hr Q24H IV Last administered on 09/10/20at 12:41; Start 08/30/20 at 12:30 Vancomycin HCl (Vancomycin) 8 gm STK-MED ONCE CEMENT Last administered on 09/04/20at 15:13; Start 09/04/20 at 15:13; Stop 09/04/20 at 19:33; Status DC Tobramycin Sulfate (Tobramycin Powder) 9.6 gm STK-MED ONCE CEMENT Last administered on 09/04/20at 15:13; Start 09/04/20 at 15:13; Stop 09/04/20 at 19:33; Status DC Fentanyl Citrate (Fentanyl 2ml Vial) 25 mcg PRN Q5MIN PRN IV PAIN; Start 09/04/20 at 20:00; Stop 09/04/20 at 21:12; Status DC Fentanyl Citrate (Fentanyl 2ml Vial) 50 mcg PRN Q5MIN PRN IV PAIN; Start 09/04/20 at 20:00; Stop 09/04/20 at 21:12; Status DC Morphine Sulfate (Morphine Sulfate) 2 mg PRN Q10MIN PRN IV PAIN; Start 09/04/20 at 20:00; Stop 09/04/20 at 21:12; Status DC Atropine Sulfate (ATROPINE 0.5mg SYRINGE) 0.5 mg PRN 1X PRN IV SEE COMMENTS; Start 09/04/20 at 20:00; Stop 09/05/20 at 19:59; Status DC Naloxone HCl (Narcan) 0.04 mg PRN Q2MIN PRN IV SEE COMMENTS; Start 09/04/20 at 20:00; Stop 09/05/20 at 19:59; Status DC Hydromorphone HCl (Dilaudid) 0.5 mg PRN Q10MIN PRN IVP pain Last administered on 09/04/20at 19:45; Start 09/04/20 at 20:00; Stop 09/04/20 at 21:12; Status DC Ringer's Solution 1,000 ml @ 75 mls/hr [id number] IV Last administered on 09/05/20at 09:05; Start 09/04/20 at 17:00; Stop 09/05/20 at 16:59; Status DC Fentanyl Citrate (Fentanyl 2ml Vial) 25 mcg PRN Q3HRS PRN IVP SEVERE PAIN 7-10 Last administered on 09/06/20at 12:22; Start 09/04/20 at 21:15 Acetaminophen (Tylenol) 650 mg PRN Q4HRS PRN PO MILD PAIN / TEMP > 100.3'F Last administered on 09/11/20at 04:22; Start 09/05/20 at 05:45 Oxycodone/ Acetaminophen (Percocet 5/325) 1 tab PRN Q4HRS PRN PO SEVERE PAIN, 1ST CHOICE Last administered on 09/05/20at 10:24; Start 09/05/20 at 10:30 Oxycodone/ Acetaminophen (Percocet 7.5/ 325) 1 tab PRN Q4HRS PRN PO SEVERE PAIN, 2ND CHOICE Last administered on 09/08/20at 14:34; Start 09/05/20 at 11:15 Polyethylene Glycol (miraLAX PACKET) 17 gm DAILY PO Last administered on 09/10/20at 08:57; Start 09/07/20 at 10:00 Rocuronium [place] (Zemuron) 50 mg STK-MED ONCE .ROUTE ; Start 09/04/20 at 14:0 2; Stop 09/08/20 at 11:07; Status DC Tranexamic Acid 50 ml @ As Directed STK-MED ONCE .ROUTE ; Start 09/04/20 at 14:05; Stop 09/08/20 at 11:07; Status DC Propofol (Diprivan) 200 mg STK-MED ONCE IV ; Start 09/04/20 at 14:05; Stop 09/08/20 at 11:07; Status DC Dexamethasone Sodium Phosphate (Decadron) 4 mg STK-MED ONCE .ROUTE ; Start 09/04/20 at 14:05; Stop 09/08/20 at 11:07; Status DC Lidocaine HCl (Lidocaine Pf 2% Vial) 5 ml STK-MED ONCE .ROUTE ; Start 09/04/20 at 14:05; Stop 09/08/20 at 11:07; Status DC Ondansetron HCl (Zofran) 4 mg STK-MED ONCE .ROUTE ; Start 09/04/20 at 14:05; Stop 09/08/20 at 11:07; Status DC Sevoflurane (Ultane) 90 ml STK-MED ONCE IH ; Start 09/04/20 at 14:05; Stop 09/08/20 at 11:07; Status DC Vancomycin HCl (Vancomycin) 1 gm STK-MED ONCE .ROUTE ; Start 09/04/20 at 14:05; Stop 09/08/20 at 11:07; Status DC Tranexamic Acid 50 ml @ As Directed STK-MED ONCE .ROUTE ; Start 09/04/20 at 14:05; Stop 09/08/20 at 11:07; Status DC Fentanyl Citrate (Fentanyl 2ml Vial) 100 mcg STK-MED ONCE .ROUTE ; Start 09/04/20 at 14:41; Stop 09/08/20 at 11:08; Status DC Phenylephrine HCl (PHENYLEPHRINE in 0.9% NACL PF) 1 mg STK-MED ONCE IV ; Start 09/04/20 at 14:53; Stop 09/08/20 at 11:08; Status DC Vancomycin HCl (Vancomycin) 1 gm STK-MED ONCE .ROUTE ; Start 09/04/20 at 15:18; Stop 09/08/20 at 11:08; Status DC Tobramycin Sulfate (Tobramycin Powder) 1.2 gm STK-MED ONCE .ROUTE ; Start 09/04/20 at 15:18; Stop 09/08/20 at 11:08; Status DC Vancomycin HCl (Vancomycin) 1 gm STK-MED ONCE .ROUTE ; Start 09/04/20 at 15:20; Stop 09/08/20 at 11:08; Status DC Tobramycin Sulfate (Tobramycin Powder) 1.2 gm STK-MED ONCE .ROUTE ; Start 09/04/20 at 15:20; Stop 09/08/20 at 11:08; Status DC Glycopyrrolate (Robinul) 1 mg STK-MED ONCE .ROUTE ; Start 09/04/20 at 18:18; Stop 09/08/20 at 11:08; Status DC Neostigmine [place] (Neostigmine Methylsulfate) 5 mg STK-MED ONCE .ROUTE ; Start 09/04/20 at 18:18; Stop 09/08/20 at 11:08; Status DC Lidocaine HCl (Lidocaine Pf 2% Vial) 5 ml STK-MED ONCE .ROUTE ; Start 09/04/20 at 18:51; Stop 09/08/20 at 11:08; Status DC Hydromorphone HCl (Dilaudid) 2 mg STK-MED ONCE .ROUTE ; Start 09/04/20 at 19:26; Stop 09/08/20 at 11:08; Status DC Active Scripts Active Reported Acetaminophen 500 Mg Tablet 2 Tab PO PRN BID PRN 30 Days Tramadol Hcl 50 Mg Tablet 50 Mg PO Q4HRS PRN Melatonin 5 Mg Tab.rapdis 1 Tab PO QHS 30 Days Colace (Docusate Sodium) 100 Mg Capsule 1 Cap PO BID 30 Days Vesicare (Solifenacin Succinate) 10 Mg Tablet 1 Tab PO DAILY 30 Days Levothyroxine Sodium 88 Mcg Tablet 1 Tab PO DAILY Omeprazole 20 Mg Capsule.dr 1 Cap PO DAILY Vitamin D3 (Cholecalciferol (Vitamin D3)) 2,000 Unit Tablet 2,000 Unit PO DAILY Once Daily (Multivitamin) 1 Each Tablet 1 Each PO DAILY Simvastatin 20 Mg Tablet 20 Mg PO HS Vitals/I & O Vital Sign - Last 24 Hours 09/10/20 09/10/20 09/10/20 09/10/20 11:00 15:00 19:00 20:00 Temp 97.6 98.4 98.1 97.6 98.4 98.1 Pulse 81 91 96 Resp 16 14 16 B/P (MAP) 119/41 (67) 101/38 (59) 118/47 (70) Pulse Ox 95 96 94 O2 Delivery Room Air Room Air Room Air Room Air 09/10/20 09/11/20 09/11/20 23:00 03:00 07:00 Temp 97.8 98.0 98.0 97.8 98.0 98.0 Pulse 82 86 79 Resp 18 18 16 B/P (MAP) 112/46 (68) 112/49 (70) 116/56 (76) Pulse Ox 96 96 O2 Delivery Room Air Room Air Room Air Intake and Output 09/10/20 09/10/20 09/11/20 15:00 23:00 07:00 Intake Total 120 ml 100 ml 200 ml Balance 120 ml 100 ml 200 ml Nutrition Consultation Dietary Evaluation: Recommendations by RD: Dietary education by RD, Increase Calorie Intake, Protein supplementation Comments: continue Cardiac diet and kris bid to promote wound healing continue with mvi Expected Outcomes/Goals: to meet >75% est nutr needs- ongoing improved wound status- ongoing Malnutrition Findings: Body Fat Depletion (Non Severe: Mild Depletion Weight Status: Overweight Justicifation of Admission Dx: Justifications for Admission: Justification of Admission Dx: N/A SUNSHINE GALEAS MD Sep 11, 2020 08:45
--- NOTE | 2020-09-11 09:47 | PDOC ---
PROGRESS NOTES Date of Service DATE: 09/11/20 TIME: 09:43 Subjective Subjective Problems overnight: Delayed entry from last evening 09/10/2020's evaluation. Pain is reasonably controlled. She is mainly concerned with the implications of rehab and generally what is the plan for further management and being able to pu t weight on her leg. Objective Vital Signs Vital Signs Date Time Temp Pulse Resp B/P (MAP) Pulse Ox O2 Delivery O2 Flow Rate FiO2 09/11/20 07:00 98.0 79 16 116/56 (76) Room Air 98.0 09/11/20 03:00 96 09/07/20 18:17 2.0 Physical Exam Wound VAC is intact with some bloody drainage in the canister no surrounding redness or erythema. Distal pulses sensation are otherwise intact and no drainage on her other more distal incision she can wiggle her toes and leg is stable and straight as intended. Labs Laboratory Tests Test 09/10/20 03:35 09/10/20 18:15 White Blood Count 8.1 x10^3/uL (4.0-11.0) Red Blood Count 2.90 x10^6/uL (3.50-5.40) Hemoglobin 9.0 g/dL (12.0-15.5) Hematocrit 27.0 % (36.0-47.0) Mean Corpuscular Volume 93 fL (79-100) Mean Corpuscular Hemoglobin 31 pg (25-35) Mean Corpuscular Hemoglobin Concent 33 g/dL (31-37) Red Cell Distribution Width 15.6 % (11.5-14.5) Platelet Count 317 x10^3/uL (140-400) Neutrophils (%) (Auto) 46 % (31-73) Lymphocytes (%) (Auto) 29 % (24-48) Monocytes (%) (Auto) 22 % (0-9) Eosinophils (%) (Auto) 2 % (0-3) Basophils (%) (Auto) 1 % (0-3) Neutrophils # (Auto) 3.7 x10^3/uL (1.8-7.7) Lymphocytes # (Auto) 2.3 x10^3/uL (1.0-4.8) Monocytes # (Auto) 1.8 x10^3/uL (0.0-1.1) Eosinophils # (Auto) 0.2 x10^3/uL (0.0-0.7) Basophils # (Auto) 0.1 x10^3/uL (0.0-0.2) Sodium Level 136 mmol/L (136-145) Potassium Level 4.3 mmol/L (3.5-5.1) Chloride Level 103 mmol/L (98-107) Carbon Dioxide Level 29 mmol/L (21-32) Anion Gap 4 (6-14) Blood Urea Nitrogen 27 mg/dL (7-20) Creatinine 1.0 mg/dL (0.6-1.0) Estimated GFR (Cockcroft-Gault) 52.2 BUN/Creatinine Ratio 27 (6-20) Glucose Level 109 mg/dL (70-99) Calcium Level 8.1 mg/dL (8.5-10.1) Total Bilirubin 0.4 mg/dL (0.2-1.0) Aspartate Amino Transf (AST/SGOT) 12 U/L (15-37) Alanine Aminotransferase (ALT/SGPT) 15 U/L (14-59) Alkaline Phosphatase 109 U/L (46-116) Total Protein 5.1 g/dL (6.4-8.2) Albumin 1.6 g/dL (3.4-5.0) Albumin/Globulin Ratio 0.5 (1.0-1.7) SARS-CoV-2 RNA (PRISCILLA) Negative (Negative) SARS-CoV-2 Antigen (Rapid) Negative (NEGATIVE) Laboratory Tests Test 09/10/20 18:15 SARS-CoV-2 RNA (PRISCILLA) Negative (Negative) SARS-CoV-2 Antigen (Rapid) Negative (NEGATIVE) Assessment Assessment POD#implantation antibiotic spacer and fixation of tibia fracture Plan Plan of Care I went over with her that we would currently keep the 25% weightbearing at present and her ongoing increase in weightbearing would be dependent on her healing. We would perhaps check x-rays in about 4 weeks to see how the healing is and if she is showing some adequate healing could certainly progress her weightbearing at that time. Placement is anticipated for the next couple of days and wound VAC change planned for tomorrow. All her questions were answered on the tentative ongoing plans for management which would depend on her response to antibiotics laboratory examination of inflammatory factors etc. and overall her response to continued limited mobilization Justicifation of Admission Dx: Justifications for Admission: Justification of Admission Dx: N/A GURU TORRSE MD Sep 11, 2020 09:47
[2020-09-11 11:00] VITALS: BP 94/38
--- NOTE | 2020-09-11 12:36 | NUR ---
Wound Care Pt has incisional vac over proximal surgical incision and xeroform, abd and kerlix over distal incision. Dressings removed and incisions inspected by Dr Rossi and Dr Lora. Proximal area of incision is still draining large amount of serosanguinous drainage. Incisional vac replaced with prevena plus and extra canister sent to room by [facility]. Cleansed both incisions with chlorprep, covered distal incision with xeroform and abds and secured with kerlix. Pt also has a stage II PU to coccyx, which is now healed, it was pictured and skin prep and foam dressing applied. No other wounds noted on full skin inspection. Pt turned to left side with heels floated on pillows. Pt educated on PU prevention. Pt educated on wound vac use and instruction booklet left with patient. WC will continue to follow for possible changes.
[2020-09-11] MEDS: DAPTOmycin (GENERIC) IVPB 550 MG in IV NORMAL SALINE 50ML 50 ML IV SCH (12:37)
--- NOTE | 2020-09-11 13:56 | PDOC3 ---
Discharge Summary Date of Admission: Aug 27, 2020 Date of Discharge: Sep 11, 2020 Follow-Up: 1-2 days Admitting Diagnosis comment: d/c condition good prognosis guarded consults, ORTHO, ID D/C MEDS SEE MAR TO SNF BED TODAY, [place] complications none D/C PLANNING 40 MIN discharge dx Chief Complaint ASSESSMENT Right knee swelling and discharge and pain after 2 recent knee replacements. Ms. Hairston is a 89 old female periprosthetic distal femur fracture above well fixated right total knee arthroplasty with minimal bone available for distal fixation. JULY 2020 She had removal of components and placement of a distal femoral replacement with rotating hinge construct. FEVER T MAX 101.6F 6-17 POA SEPSIS PLAN ADMIT hold off on antibiotics until he takes the patient to surgery Postoperatively, she is going to need wound care, PT, OT and probably [place] facility. ID CONSULT BLOOD CULTURES Operative procedure: Irrigation and debridement right knee with superficial and deep cultures and retention of hardware 6-18 6-18 hold off on antibiotics until he takes the patient to surgery Postoperatively, she is going to need wound care, PT, OT and probably [place] facility. ID CONSULT BLOOD CULTURES Operative procedure: Irrigation and debridement right knee with superficial and deep cultures and retention of hardware 6-18 37 min pt exam, chart review, > 50% of time spent with exam, chart review, pt care coordination 6-19 emperic iv antibiotics Postoperatively, she is going to need wound care, PT, OT and probably [facility] facility. ID CONSULT BLOOD CULTURES Operative procedure: Irrigation and debridement right knee with superficial and deep cultures and retention of hardware 6-18 38 min pt exam, chart review, > 50% of time spent with exam, chart review, pt care coordination 6-20 pain improving emperic iv antibiotics Postoperatively, wound care, PT, OT and probably [facility] facility. ID CONSULT BLOOD CULTURES Operative procedure: Irrigation and debridement right knee with superficial and deep cultures and retention of hardware 6-18 Procedure Result GRAM STAIN Final Final GRAM POS COCCI CLUSTERS:MODERATE RBC:MANY SQUAMOUS EPI CELL:NOT APPLICABLE PMN (WBCs):MANY Unless otherwise specified, Testing Performed by: [address] [address] For Inquires, the Physician may contact the Microbiology department at [phone] ANAEROBIC-AEROBIC CULTURE Preliminary Preliminary MANY [STAPHYLOCOCCUS AUREUS (MRSA)] on 08/29/20 at 1351 STAPHYLOCOCCUS AUREUS (MRSA) ANTIMICROBIAL SUSCEPTIBILITY Preliminary Comment POS JC TYPE 38 STAPHYLOCOCCUS AUREUS (MRSA) ANTIBIOTIC RESULT INTERPRETATION AZITHROMYCIN >4 R CLINDAMYCIN <=0.25 R* CEFOXITIN SCREEN >4 POS CIPROFLOXACIN >2 R CEFTAROLINE 1 S DAPTOMYCIN 1 S ERYTHROMYCIN >4 R GENTAMICIN >8 R INDUCIBLE CLINDAMYCIN >4/0.5 POS LINEZOLID 2 S LEVOFLOXACIN >4 R OXACILLIN >2 R PENICILLIN >2 R* RIFAMPIN <=1 S TRIMETHOPRIM/SULFAMETHOXAZOLE >2/38 R TETRACYCLINE >8 R RUN DATE: 08/30/20 [facility] *LIVE* PAGE 2 RUN TIME: 913 Specimen Inquiry SPEC: [id number] PATIENT: YONIS HAIRSTON [id number] (Continued) ------- ----- Procedure Result CONTINUED ON NEXT PAGE RUN DATE: 08/30/20 [facility] *LIVE* PAGE 3 RUN TIME: 913 Specimen Inquiry SPEC: [id number] PATIENT: YONIS HAIRSTON [id number] (Continued) SPEC #: [id number] OFE: 08/27/20 STATUS: RES REQ #: [id number] RECD: 08/28/[address]: JUDIE HUBBARD III, DO SOURCE: LEG ENTR: 08/28/[address]: YAN RIOS MD SPDESC: WOUND PULS,BEVERLY De Jesus MD ORDERED: SHAHEEN/CHAI/KARI COMMENTS: R LEG SUBCUTANEOUS Procedure Result GRAM STAIN Final Final GRAM POS COCCI CLUSTERS:MODERATE RBC:MODERATE SQUAMOUS EPI CELL:RARE PMN (WBCs):MANY Unless otherwise specified, Testing Performed by: [facility] [address] [place] [address] For Inquires, the Physician may contact the Microbiology department at [phone] ANAEROBIC-AEROBIC CULTURE Preliminary Preliminary MANY [STAPHYLOCOCCUS AUREUS (MRSA)] on 08/29/20 at 1351 SEE CULTURE AN663 FOR SUSCEPTIBILITY RESULTS STAPHYLOCOCCUS AUREUS (MRSA) Unless otherwise specified, Testing Performed by: [address] [address] For Inquires, the Physician may contact the Microbiology department at [phone] 36 min pt exam, chart review, > 50% of time spent with exam, chart review, pt care coordination 6-21 pain improving emperic iv antibiotics Postoperatively, wound care, PT, OT and probably [facility]. ID CONSULT BLOOD CULTURES Operative procedure: Irrigation and debridement right knee with superficial and deep cultures and retention of hardware 618 Procedure Result GRAM STAIN Final Final GRAM POS COCCI CLUSTERS:MODERATE RBC:MANY SQUAMOUS EPI CELL:NOT APPLICABLE PMN (WBCs):MANY Unless otherwise specified, Testing Performed by: [address] [address] For Inquires, the Physician may contact the Microbiology department at [phone] ANAEROBIC-AEROBIC CULTURE Preliminary Preliminary MANY [STAPHYLOCOCCUS AUREUS (MRSA)] on 08/29/20 at 1351 STAPHYLOCOCCUS AUREUS (MRSA) ANTIMICROBIAL SUSCEPTIBILITY Preliminary Comment POS JC TYPE 38 STAPHYLOCOCCUS AUREUS (MRSA) ANTIBIOTIC RESULT INTERPRETATION AZITHROMYCIN >4 R CLINDAMYCIN <=0.25 R* CEFOXITIN SCREEN >4 POS CIPROFLOXACIN >2 R CEFTAROLINE 1 S DAPTOMYCIN 1 S ERYTHROMYCIN >4 R GENTAMICIN >8 R INDUCIBLE CLINDAMYCIN >4/0.5 POS LINEZOLID 2 S LEVOFLOXACIN >4 R OXACILLIN >2 R PENICILLIN >2 R* RIFAMPIN <=1 S TRIMETHOPRIM/SULFAMETHOXAZOLE >2/38 R TETRACYCLINE >8 R RUN DATE: 08/30/20 [facility] *LIVE* PAGE 2 RUN TIME: 913 Specimen Inquiry SPEC: [id number] PATIENT: YONIS HAIRSTON [id number] (Continued) Procedure Result CONTINUED ON NEXT PAGE RUN DATE: 08/30/20 [facility] *LIVE* PAGE 3 RUN TIME: 0914 Specimen Inquiry SPEC: [id number] PATIENT: YONIS HAIRSTON [id number] (Continued) SPEC #: [id number] OFE: 08/27/20 STATUS: RES REQ #: [id number] RECD: 08/28/[address]: JUDIE HUBBARD III, DO SOURCE: LEG ENTR: 08/28/[address]: YAN RIOS MD [facility]: WOUND PULS,BEVERLY De Jesus MD ORDERED: ANAER/AEROB/GS COMMENTS: R LEG SUBCUTANEOUS Procedure Result GRAM STAIN Final Final GRAM POS COCCI CLUSTERS:MODERATE RBC:MODERATE SQUAMOUS EPI CELL:RARE PMN (WBCs):MANY Unless otherwise specified, Testing Performed by: [address] [address] For Inquires, the Physician may contact the Microbiology department at [phone] ANAEROBIC-AEROBIC CULTURE Preliminary Preliminary MANY [STAPHYLOCOCCUS AUREUS (MRSA)] on 08/29/20 at 1351 SEE CULTURE AN663 FOR SUSCEPTIBILITY RESULTS STAPHYLOCOCCUS AUREUS (MRSA) Unless otherwise specified, Testing Performed by: [address] [address] For Inquires, the Physician may contact the Microbiology department at [phone] 26 min pt exam, chart review, > 50% of time spent with exam, chart review, pt care coordination Cont Daptomycin higher dose 10mg/kg daily (08/30) and Rifampin ( 08/30). Avoid IV vancomycin due to BERHANE . monitor CK closely Follow up labs and cultures. 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 09-01 pain improving emperic iv antibiotics Postoperatively, wound care, PT, OT and probably [facility]. ID CONSULT BLOOD CULTURES Operative procedure: Irrigation and debridement right knee with superficial and deep cultures and retention of hardware 08-28 -------- ---- Procedure Result GRAM STAIN Final Final GRAM POS COCCI CLUSTERS:MODERATE RBC:MANY SQUAMOUS EPI CELL:NOT APPLICABLE PMN (WBCs):MANY Unless otherwise specified, Testing Performed by: [facility] [address] [place] [address] For Inquires, the Physician may contact the Microbiology department at [phone] ANAEROBIC-AEROBIC CULTURE Preliminary Preliminary MANY [STAPHYLOCOCCUS AUREUS (MRSA)] on 08/29/20 at 1351 STAPHYLOCOCCUS AUREUS (MRSA) ANTIMICROBIAL SUSCEPTIBILITY Preliminary Comment POS JC TYPE 38 STAPHYLOCOCCUS AUREUS (MRSA) ANTIBIOTIC RESULT INTERPRETATION AZITHROMYCIN >4 R CLINDAMYCIN <=0.25 R* CEFOXITIN SCREEN >4 POS CIPROFLOXACIN >2 R CEFTAROLINE 1 S DAPTOMYCIN 1 S ERYTHROMYCIN >4 R GENTAMICIN >8 R INDUCIBLE CLINDAMYCIN >4/0.5 POS LINEZOLID 2 S LEVOFLOXACIN >4 R OXACILLIN >2 R PENICILLIN >2 R* RIFAMPIN <=1 S TRIMETHOPRIM/SULFAMETHOXAZOLE >2/38 R TETRACYCLINE >8 R RUN DATE: 08/30/20 [facility] *LIVE* PAGE 2 RUN TIME: 913 Specimen Inquiry SPEC: [id number] PATIENT: YONIS HAIRSTON Francine [id number] (Continued) Procedure Result CONTINUED ON NEXT PAGE RUN DATE: 08/30/20 [facility] *LIVE* PAGE 3 RUN TIME: 913 Specimen Inquiry SPEC: [id number] PATIENT: YONIS HAIRSTON [id number] (Continued) --------- --- SPEC #: [id number] OFE: 08/27/20-2019 STATUS: RES REQ #: [id number] RECD: 08/28/20-[address]: JUDIE HUBBARD III, DO SOURCE: LEG ENTR: 08/28/20-617 [facility] DR: YAN RIOS MD [facility]: WOUND PULS,BEVERLY De Jesus MD ORDERED: SHAHEEN/CHAI/GS COMMENTS: R LEG SUBCUTANEOUS Procedure Result GRAM STAIN Final Final GRAM POS COCCI CLUSTERS:MODERATE RBC:MODERATE SQUAMOUS EPI CELL:RARE PMN (WBCs):MANY Unless otherwise specified, Testing Performed by: [place] [address] For Inquires, the Physician may contact the Microbiology department at [phone] ANAEROBIC-AEROBIC CULTURE Preliminary Preliminary MANY [STAPHYLOCOCCUS AUREUS (MRSA)] on 08/29/20 at 1351 SEE CULTURE AN663 FOR SUSCEPTIBILITY RESULTS STAPHYLOCOCCUS AUREUS (MRSA) Unless otherwise specified, Testing Performed by: [address] [address] For Inquires, the Physician may contact the Microbiology department at [phone] 26 min pt exam, chart review, > 50% of time spent with exam, chart review, pt care coordination Cont Daptomycin higher dose 10mg/kg daily (08/30) and Rifampin ( 08/30). Avoid IV vancomycin due to BERHANE . monitor CK closely Follow up labs and cultures. 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 09-02 pain improving emperic iv antibiotics Postoperatively, wound care, PT, OT and probably [place]. ID CONSULT BLOOD CULTURES Operative procedure: Irrigation and debridement right knee with superficial and deep cultures and retention of hardware 08-28 Procedure Result GRAM STAIN Final Final GRAM POS COCCI CLUSTERS:MODERATE RBC:MANY SQUAMOUS EPI CELL:NOT APPLICABLE PMN (WBCs):MANY Unless otherwise specified, Testing Performed by: [address] [address] For Inquires, the Physician may contact the Microbiology department at [phone] ANAEROBIC-AEROBIC CULTURE Preliminary Preliminary MANY [STAPHYLOCOCCUS AUREUS (MRSA)] on 08/29/20 at 1351 STAPHYLOCOCCUS AUREUS (MRSA) ANTIMICROBIAL SUSCEPTIBILITY Preliminary Comment POS JC TYPE 38 STAPHYLOCOCCUS AUREUS (MRSA) ANTIBIOTIC RESULT INTERPRETATION AZITHROMYCIN >4 R CLINDAMYCIN <=0.25 R* CEFOXITIN SCREEN >4 POS CIPROFLOXACIN >2 R CEFTAROLINE 1 S DAPTOMYCIN 1 S ERYTHROMYCIN >4 R GENTAMICIN >8 R INDUCIBLE CLINDAMYCIN >4/0.5 POS LINEZOLID 2 S LEVOFLOXACIN >4 R OXACILLIN >2 R PENICILLIN >2 R* RIFAMPIN <=1 S TRIMETHOPRIM/SULFAMETHOXAZOLE >2/38 R TETRACYCLINE >8 R RUN DATE: 08/30/20 [facility] *LIVE* PAGE 2 RUN TIME: 913 Specimen Inquiry SPEC: [id number] PATIENT: YONIS HAIRSTON [id number] (Continued) Procedure Result ----- ------- CONTINUED ON NEXT PAGE RUN DATE: 08/30/20 [facility] *LIVE* PAGE 3 RUN TIME: 913 Specimen Inquiry SPEC: [id number] PATIENT: ROSARIOIRVINGYONIS M [id number] (Continued) SPEC #: [id number] OFE: 08/27/20 STATUS: RES REQ #: [id number] RECD: 08/28/[address]: JUDIE HUBBARD III, DO SOURCE: LEG ENTR: 08/28/[address]: YAN RIOS MD [facility]: BEVERLY HAYES MD ORDERED: SHAHEEN/CHAI/KARI COMMENTS: R LEG SUBCUTANEOUS Procedure Result GRAM STAIN Final Final GRAM POS COCCI CLUSTERS:MODERATE RBC:MODERATE SQUAMOUS EPI CELL:RARE PMN (WBCs):MANY Unless otherwise specified, Testing Performed by: [address] [address] For Inquires, the Physician may contact the Microbiology department at [phone] ANAEROBIC-AEROBIC CULTURE Preliminary Preliminary MANY [STAPHYLOCOCCUS AUREUS (MRSA)] on 08/29/20 at 1351 SEE CULTURE AN663 FOR SUSCEPTIBILITY RESULTS STAPHYLOCOCCUS AUREUS (MRSA) Unless otherwise specified, Testing Performed by: [address] [address] For Inquires, the Physician may contact the Microbiology department at [phone] 36 min pt exam, chart review, > 50% of time spent with exam, chart review, pt care coordination Cont Daptomycin higher dose 10mg/kg daily (08/30) and Rifampin ( 08/30). Avoid IV vancomycin due to BERHANE . monitor CK closely Follow up labs and cultures. 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 further surgical plans per orthopedics if pt is a candidate, . Difficult surgical candidate due to femur implant.... Despite aggressive medical management patient is at high risk of limb loss 6-25 pain improving emperic iv antibiotics Postoperatively, wound care, PT, OT and probably [place]. ID CONSULT BLOOD CULTURES Operative procedure: Irrigation and debridement right knee with superficial and deep cultures and retention of hardware 6-18 ----- ------- Procedure Result GRAM STAIN Final Final GRAM POS COCCI CLUSTERS:MODERATE RBC:MANY SQUAMOUS EPI CELL:NOT APPLICABLE PMN (WBCs):MANY Unless otherwise specified, Testing Performed by: [address] [address] For Inquires, the Physician may contact the Microbiology department at [phone] ANAEROBIC-AEROBIC CULTURE Preliminary Preliminary MANY [STAPHYLOCOCCUS AUREUS (MRSA)] on 08/29/20 at 1351 STAPHYLOCOCCUS AUREUS (MRSA) ANTIMICROBIAL SUSCEPTIBILITY Preliminary Comment POS JC TYPE 38 STAPHYLOCOCCUS AUREUS (MRSA) ANTIBIOTIC RESULT INTERPRETATION AZITHROMYCIN >4 R CLINDAMYCIN <=0.25 R* CEFOXITIN SCREEN >4 POS CIPROFLOXACIN >2 R CEFTAROLINE 1 S DAPTOMYCIN 1 S ERYTHROMYCIN >4 R GENTAMICIN >8 R INDUCIBLE CLINDAMYCIN >4/0.5 POS LINEZOLID 2 S LEVOFLOXACIN >4 R OXACILLIN >2 R PENICILLIN >2 R* RIFAMPIN <=1 S TRIMETHOPRIM/SULFAMETHOXAZOLE >2/38 R TETRACYCLINE >8 R RUN DATE: 08/30/20 [facility] *LIVE* PAGE 2 RUN TIME: 913 Specimen Inquiry SPEC: [id number] PATIENT: YONIS HAIRSTON [id number] (Continued) Procedure Result CONTINUED ON NEXT PAGE RUN DATE: 08/30/20 [facility] *LIVE* PAGE 3 RUN TIME: 913 Specimen Inquiry SPEC: 21:[id number] PATIENT: YONIS HAIRSTON [id number] (Continued) ------ ------ SPEC #: [id number] OFE: 08/27/20 STATUS: RES REQ #: [id number] RECD: 08/28/[address]: JUDIE HUBBARD III, DO SOURCE: LEG ENTR: 08/28/[address]: YAN RIOS MD [facility]: BEVERLY HAYES MD ORDERED: SHAHEEN/CHAI/KARI COMMENTS: R LEG SUBCUTANEOUS Procedure Result GRAM STAIN Final Final GRAM POS COCCI CLUSTERS:MODERATE RBC:MODERATE SQUAMOUS EPI CELL:RARE PMN (WBCs):MANY Unless otherwise specified, Testing Performed by: [address] [address] For Inquires, the Physician may contact the Microbiology department at [phone] ANAEROBIC-AEROBIC CULTURE Preliminary Preliminary MANY [STAPHYLOCOCCUS AUREUS (MRSA)] on 08/29/20 at 1351 SEE CULTURE AN663 FOR SUSCEPTIBILITY RESULTS STAPHYLOCOCCUS AUREUS (MRSA) Unless otherwise specified, Testing Performed by: [address] [address] For Inquires, the Physician may contact the Microbiology department at [phone] 26 min pt exam, chart review, > 50% of time spent with exam, chart review, pt care coordination Cont Daptomycin higher dose 10mg/kg daily (08/30) and Rifampin ( 08/30). Avoid IV vancomycin due to BERHANE . monitor CK closely Follow up labs and cultures. 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 further surgical plans per orthopedics if pt is a candidate, . Difficult surgical candidate due to femur implant.... Despite aggressive medical management patient is at high risk of limb loss 6-25 pain improving emperic iv antibiotics Postoperatively, wound care, PT, OT and probably [place] [facility]. ID CONSULT BLOOD CULTURES Operative procedure: Irrigation and debridement right knee with superficial and deep cultures and retention of hardware 18 Procedure Result GRAM STAIN Final Final GRAM POS COCCI CLUSTERS:MODERATE RBC:MANY SQUAMOUS EPI CELL:NOT APPLICABLE PMN (WBCs):MANY Unless otherwise specified, Testing Performed by: [address] [address] For Inquires, the Physician may contact the Microbiology department at [phone] ANAEROBIC-AEROBIC CULTURE Preliminary Preliminary MANY [STAPHYLOCOCCUS AUREUS (MRSA)] on 08/29/20 at 1351 STAPHYLOCOCCUS AUREUS (MRSA) ANTIMICROBIAL SUSCEPTIBILITY Preliminary Comment POS JC TYPE 38 STAPHYLOCOCCUS AUREUS (MRSA) ANTIBIOTIC RESULT INTERPRETATION AZITHROMYCIN >4 R CLINDAMYCIN <=0.25 R* CEFOXITIN SCREEN >4 POS CIPROFLOXACIN >2 R CEFTAROLINE 1 S DAPTOMYCIN 1 S ERYTHROMYCIN >4 R GENTAMICIN >8 R INDUCIBLE CLINDAMYCIN >4/0.5 POS LINEZOLID 2 S LEVOFLOXACIN >4 R OXACILLIN >2 R PENICILLIN >2 R* RIFAMPIN <=1 S TRIMETHOPRIM/SULFAMETHOXAZOLE >2/38 R TETRACYCLINE >8 R RUN DATE: 08/30/20 [facility] *LIVE* PAGE 2 RUN TIME: 913 Specimen Inquiry SPEC: [id number] PATIENT: YONIS HAIRSTON [id number] (Continued) Procedure Result CONTINUED ON NEXT PAGE RUN DATE: 08/30/20 [facility] *LIVE* PAGE 3 RUN TIME: 913 Specimen Inquiry SPEC: [id number] PATIENT: YONIS HAIRSTON [id number] (Continued) SPEC #: [id number] OFE: 08/27/20 STATUS: RES REQ #: [id number] RECD: 08/28/[address]: JUDIE HUBBARD III, DO SOURCE: LEG ENTR: 08/28/[address]: YAN RIOS MD SPDC: BEVERLY HAYES MD ORDERED: SHAHEEN/CHAI/KARI COMMENTS: R LEG SUBCUTANEOUS Procedure Result GRAM STAIN Final Final GRAM POS COCCI CLUSTERS:MODERATE RBC:MODERATE SQUAMOUS EPI CELL:RARE PMN (WBCs):MANY Unless otherwise specified, Testing Performed by: [address] [address] For Inquires, the Physician may contact the Microbiology department at [phone] ANAEROBIC-AEROBIC CULTURE Preliminary Preliminary MANY [STAPHYLOCOCCUS AUREUS (MRSA)] on 08/29/20 at 1351 SEE CULTURE AN663 FOR SUSCEPTIBILITY RESULTS STAPHYLOCOCCUS AUREUS (MRSA) Unless otherwise specified, Testing Performed by: [address] [address] For Inquires, the Physician may contact the Microbiology department at [phone] 26 min pt exam, chart review, > 50% of time spent with exam, chart review, pt care coordination Cont Daptomycin higher dose 10mg/kg daily (08/30) and Rifampin ( 08/30). Avoid IV vancomycin due to BERHANE . monitor CK closely Follow up labs and cultures. 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 further surgical plans per orthopedics if pt is a candidate, . Difficult surgical candidate due to femur implant.... Despite aggressive medical management patient is at high risk of limb loss family are decided on this could proceed with surgical treatment accordingly and would have to arrange the materials likely with surgery 6-25 pain improving emperic iv antibiotics Postoperatively, wound care, PT, OT and probably [place] [facility]. ID CONSULT BLOOD CULTURES Operative procedure: Irrigation and debridement right knee with superficial and deep cultures and retention of hardware 08-28 Procedure Result GRAM STAIN Final Final GRAM POS COCCI CLUSTERS:MODERATE RBC:MANY SQUAMOUS EPI CELL:NOT APPLICABLE PMN (WBCs):MANY Unless otherwise specified, Testing Performed by: [facility] [address] [place] [address] For Inquires, the Physician may contact the Microbiology department at [phone] ANAEROBIC-AEROBIC CULTURE Preliminary Preliminary MANY [STAPHYLOCOCCUS AUREUS (MRSA)] on 08/29/20 at 1351 STAPHYLOCOCCUS AUREUS (MRSA) ANTIMICROBIAL SUSCEPTIBILITY Preliminary Comment POS JC TYPE 38 STAPHYLOCOCCUS AUREUS (MRSA) ANTIBIOTIC RESULT INTERPRETATION AZITHROMYCIN >4 R CLINDAMYCIN <=0.25 R* CEFOXITIN SCREEN >4 POS CIPROFLOXACIN >2 R CEFTAROLINE 1 S DAPTOMYCIN 1 S ERYTHROMYCIN >4 R GENTAMICIN >8 R INDUCIBLE CLINDAMYCIN >4/0.5 POS LINEZOLID 2 S LEVOFLOXACIN >4 R OXACILLIN >2 R PENICILLIN >2 R* RIFAMPIN <=1 S TRIMETHOPRIM/SULFAMETHOXAZOLE >2/38 R TETRACYCLINE >8 R RUN DATE: 08/30/20 [facility] *LIVE* PAGE 2 RUN TIME: 913 Specimen Inquiry SPEC: [id number] PATIENT: YONIS HAIRSTON [id number] (Continued) Procedure Result CONTINUED ON NEXT PAGE RUN DATE: 08/30/20 [facility] *LIVE* PAGE 3 RUN TIME: 913 Specimen Inquiry SPEC: [id number] PATIENT: YONIS HAIRSTON [id number] (Continued) SPEC #: 21:[id number] OFE: 08/27/20 STATUS: RES REQ #: [id number] RECD: 08/28/[address]: JUDIE HUBBARD III, DO SOURCE: LEG ENTR: 08/28/[address]: YAN RIOS [facility] WOUND PULSBEVERLY MD ORDERED: SHAHEEN/CHAI/KARI COMMENTS: R LEG SUBCUTANEOUS Procedure Result GRAM STAIN Final Final GRAM POS COCCI CLUSTERS:MODERATE RBC:MODERATE SQUAMOUS EPI CELL:RARE PMN (WBCs):MANY Unless otherwise specified, Testing Performed by: [address] [address] For Inquires, the Physician may contact the Microbiology department at [phone] ANAEROBIC-AEROBIC CULTURE Preliminary Preliminary MANY [STAPHYLOCOCCUS AUREUS (MRSA)] on 08/29/20 at 1351 SEE CULTURE AN663 FOR SUSCEPTIBILITY RESULTS STAPHYLOCOCCUS AUREUS (MRSA) Unless otherwise specified, Testing Performed by: [address] [address] For Inquires, the Physician may contact the Microbiology department at [phone] 26 min pt exam, chart review, > 50% of time spent with exam, chart review, pt care coordination C 6-27 pain improving emperic iv antibiotics Postoperatively, wound care, PT, OT and probably [place]. ID CONSULT BLOOD CULTURES Operative procedure: Irrigation and debridement right knee with superficial and deep cultures and retention of hardware 6-18 Procedure Result GRAM STAIN Final Final GRAM POS COCCI CLUSTERS:MODERATE RBC:MANY SQUAMOUS EPI CELL:NOT APPLICABLE PMN (WBCs):MANY Unless otherwise specified, Testing Performed by: [address] [address] For Inquires, the Physician may contact the Microbiology department at [phone] ANAEROBIC-AEROBIC CULTURE Preliminary Preliminary MANY [STAPHYLOCOCCUS AUREUS (MRSA)] on 08/29/20 at 1351 STAPHYLOCOCCUS AUREUS (MRSA) ANTIMICROBIAL SUSCEPTIBILITY Preliminary Comment POS JC TYPE 38 STAPHYLOCOCCUS AUREUS (MRSA) ANTIBIOTIC RESULT INTERPRETATION AZITHROMYCIN >4 R CLINDAMYCIN <=0.25 R* CEFOXITIN SCREEN >4 POS CIPROFLOXACIN >2 R CEFTAROLINE 1 S DAPTOMYCIN 1 S ERYTHROMYCIN >4 R GENTAMICIN >8 R INDUCIBLE CLINDAMYCIN >4/0.5 POS LINEZOLID 2 S LEVOFLOXACIN >4 R OXACILLIN >2 R PENICILLIN >2 R* RIFAMPIN <=1 S TRIMETHOPRIM/SULFAMETHOXAZOLE >2/38 R TETRACYCLINE >8 R RUN DATE: 08/30/20 [facility] *LIVE* PAGE 2 RUN TIME: 913 Specimen Inquiry SPEC: [id number] PATIENT: YONIS HAIRSTON Francine [id number] (Continued) Procedure Result -------- ---- CONTINUED ON NEXT PAGE RUN DATE: 08/30/20 [facility] *LIVE* PAGE 3 RUN TIME: 913 Specimen Inquiry SPEC: [id number] PATIENT: YONIS HAIRSTON [id number] (Continued) SPEC #: [id number] OFE: 08/27/20 STATUS: RES REQ #: [id number] RECD: 08/28/[address]: JUDIE HUBBARD III O SOURCE: LEG ENTR: 08/28/[address]: YAN RIOS MD [facility]: WOUND PULS,BEVERLY De Jesus MD ORDERED: ANAER/AEROB/GS COMMENTS: R LEG SUBCUTANEOUS Procedure Result GRAM STAIN Final Final GRAM POS COCCI CLUSTERS:MODERATE RBC:MODERATE SQUAMOUS EPI CELL:RARE PMN (WBCs):MANY Unless otherwise specified, Testing Performed by: [address] [address] For Inquires, the Physician may contact the Microbiology department at [phone] ANAEROBIC-AEROBIC CULTURE Preliminary Preliminary MANY [STAPHYLOCOCCUS AUREUS (MRSA)] on 08/29/20 at 1351 SEE CULTURE AN663 FOR SUSCEPTIBILITY RESULTS STAPHYLOCOCCUS AUREUS (MRSA) Unless otherwise specified, Testing Performed by: [address] [address] For Inquires, the Physician may contact the Microbiology department at [phone] 36 min pt exam, chart review, > 50% of time spent with exam, chart review, pt care coordination Cont Daptomycin higher dose 10mg/kg daily (08/30) and Rifampin ( 08/30). Avoid IV vancomycin due to BERHANE . monitor CK closely Follow up labs and cultures. 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 further surgical plans per orthopedics if pt is a candidate, . Difficult surgical candidate due to femur implant.... Despite aggressive medical management patient is at high risk of limb loss family are decided on this could proceed with surgical treatment accordingly and would have to arrange the materials likely with surgery Cont Daptomycin 10mg/kg daily (08/30) and Rifampin ( 08/30), rifampin is for [facility] to assist with drug drug interactions for rifampin with other meds 6-27 pain improving emperic iv antibiotics Postoperatively, wound care, PT, OT and probably [facility] facility. ID CONSULT BLOOD CULTURES Operative procedure: Irrigation and debridement right knee with superficial and deep cultures and retention of hardware 08-28 Procedure Result GRAM STAIN Final Final GRAM POS COCCI CLUSTERS:MODERATE RBC:MANY SQUAMOUS EPI CELL:NOT APPLICABLE PMN (WBCs):MANY Unless otherwise specified, Testing Performed by: [address] [address] For Inquires, the Physician may contact the Microbiology department at [phone] ANAEROBIC-AEROBIC CULTURE Preliminary Preliminary MANY [STAPHYLOCOCCUS AUREUS (MRSA)] on 08/29/20 at 1351 STAPHYLOCOCCUS AUREUS (MRSA) ANTIMICROBIAL SUSCEPTIBILITY Preliminary Comment POS JC TYPE 38 STAPHYLOCOCCUS AUREUS (MRSA) ANTIBIOTIC RESULT INTERPRETATION AZITHROMYCIN >4 R CLINDAMYCIN <=0.25 R* CEFOXITIN SCREEN >4 POS CIPROFLOXACIN >2 R CEFTAROLINE 1 S DAPTOMYCIN 1 S ERYTHROMYCIN >4 R GENTAMICIN >8 R INDUCIBLE CLINDAMYCIN >4/0.5 POS LINEZOLID 2 S LEVOFLOXACIN >4 R OXACILLIN >2 R PENICILLIN >2 R* RIFAMPIN <=1 S TRIMETHOPRIM/SULFAMETHOXAZOLE >2/38 R TETRACYCLINE >8 R ont Daptomycin higher dose 10mg/kg daily (08/30) and Rifampin ( 08/30). Avoid IV vancomycin due to BERHANE . monitor CK closely Follow up labs and cultures. 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 further surgical plans per orthopedics if pt is a candidate, . Difficult surgical candidate due to femur implant.... Despite aggressive medical management patient is at high risk of limb loss History of Present Illness History of Present Illness 09/09 , Dapto planned for 6 weeks, discussed wt ID Vasc following, may need angio PICC was placed plan to send to acute rehab soon cotn PT and OT 09-10 ====== pain improving emperic iv antibiotics Postoperatively, wound care, PT, OT and probably [facility]. ID CONSULT BLOOD CULTURES Operative procedure: Irrigation and debridement right knee with superficial and deep cultures and retention of hardware 6-18 MRSA Complicated RT Knee arthroplasty infection ( R to bactrim and Doxycycline, S to Rifampin) Right knee postop site drainage,hematoma with infection Dapto planned for 6 weeks, discussed wt ID Vasc following, may need angio PICC was placed plan to send to acute rehab soon d/w RN 7-02 ====== pod # 7 MILD hypotension, will monitor pain improving emperic iv antibiotics Postoperatively, wound care, PT, OT and probably [facility]. ID CONSULT BLOOD CULTURES Operative procedure: Irrigation and debridement right knee with superficial and deep cultures and retention of hardware 6-18 MRSA Complicated RT Knee arthroplasty infection ( R to bactrim and Doxycycline, S to Rifampin) Right knee postop site drainage,hematoma with infection Dapto planned for 6 weeks, discussed [facility] ID Vasc following, may need angio PICC was placed plan to send to acute rehab soon d/w RN Pt refused for right above-knee ampuation so underwent salvage therapy Operative Note Operative Note Operative Note Date of surgery: 09/04/2020 Preoperative diagnosis: Right knee infection with distal femoral replacement rotating-hinge knee implant present Postoperative diagnosis: Same with well fixed implants Operative procedure: Explantation of femoral component and hinge portion, fixation of a distal tibial shaft fracture and placement of an antibiotic rigid spacer Surgeon: Flo Art Coordinator:Osmany batista assist Anesthesia: General Estimated blood loss: 200 cc Complications: Tibial shaft fracture was noted with attempted removal of tibial component and fixated Vitals Vitals Vital Signs Date Time Temp Pulse Resp B/P (MAP) Pulse Ox O2 Delivery O2 Flow Rate FiO2 09/11/20 07:00 98.0 79 16 116/56 (76) Room Air 98.0 09/11/20 03:00 96 Physical Exam Physical Exam GENERAL: Alert, oriented x 3, pleasant female, lying in bed comfortably, in no acute distress. HEENT: Normocephalic, atraumatic. Anicteric. NECK: Supple. No JVD. LUNGS: Clear bilaterally. No wheezing. HEART: S1, S2. No gallops or murmurs. ABDOMEN: Soft, obese, nontender, nondistended. EXTREMITIES: Right lower extremity swelling present. Dressing in place not taken down NEUROLOGIC: Alert, oriented x 3, grossly nonfocal. PSYCHIATRIC: Calm and cooperative. DERMATOLOGIC: Warm, dry, no generalized rash. PICC site good General: Alert, Oriented X3, Cooperative, No acute distress Heart: Regular rate Lungs: Clear Abdomen: Normal bowel sounds, Soft Extremities: No cyanosis Labs LABS Operative Note Operative Note Operative Note Date of surgery: 09/04/2020 Preoperative diagnosis: Right knee infection with distal femoral replacement rotating-hinge knee implant present Postoperative diagnosis: Same with well fixed implants Operative procedure: Explantation of femoral component and hinge portion, fixation of a distal tibial shaft fracture and placement of an antibiotic rigid spacer Surgeon: Flo Art Coordinator:Osmany batista assist Anesthesia: General Estimated blood loss: 200 cc Complications: Tibial shaft fracture was noted with attempted removal of tibial component and fixated GRAM STAIN Final Final GRAM POS COCCI CLUSTERS:MODERATE RBC:MANY SQUAMOUS EPI CELL:NOT APPLICABLE PMN (WBCs):MANY Unless otherwise specified, Testing Performed by: [address] [address] For Inquires, the Physician may contact the Microbiology department at [phone] ANAEROBIC-AEROBIC CULTURE Final Final MANY [STAPHYLOCOCCUS AUREUS (MRSA)] on 08/29/20 at 1351 MINOCYCLINE 4.0 ug/ml SENSITIVE NO ANAEROBIC ORGANISMS ISOLATED on 09/02/20 at 0828 STAPHYLOCOCCUS AUREUS (MRSA) * This is a corrected result. * A prior result that was reported as final has been changed. ANTIMICROBIAL SUSCEPTIBILITY Final Comment POS JC TYPE 38 STAPHYLOCOCCUS AUREUS (MRSA) ANTIBIOTIC RESULT INTERPRETATION AZITHROMYCIN >4 R CLINDAMYCIN <=0.25 R* CEFOXITIN SCREEN >4 POS CIPROFLOXACIN >2 R CEFTAROLINE 1 S DAPTOMYCIN 1 S ERYTHROMYCIN >4 R GENTAMICIN >8 R INDUCIBLE CLINDAMYCIN >4/0.5 POS LINEZOLID 2 S Laboratory Tests Test 09/10/20 18:15 SARS-CoV-2 RNA (PRISCILLA) Negative (Negative) SARS-CoV-2 Antigen (Rapid) Negative (NEGATIVE) Assessment and Plan Assessmemt and Plan Problems Medical Problems: (1) Cellulitis Status: Acute FINAL DIAGNOSIS Problems Medical Problems: (1) Cellulitis Status: Acute Brief Hospital Course Ms. Hairston is a 89 old [sex] who presented with [POST OP KNEE INFECTION ] CONDITION AT DISCHARGE: Improved Discharge Medications Current Medications Vancomycin HCl 1 gm/Sodium Chloride 250 ml @ 166.667 mls/hr 1X ONCE IV ; Start 08/27/20 at 14:00; Stop 08/27/20 at 14:04; Status DC Vancomycin HCl 1.75 gm/Sodium Chloride 500 ml @ 250 mls/hr 1X ONCE IV Last administered on 08/27/20at 15:13; Start 08/27/20 at 14:30; Stop 08/27/20 at 16:29; Status DC Sodium Chloride 1,000 ml @ 1,000 mls/hr 1X ONCE IV Last administered on 08/27/20at 15:12; Start 08/27/20 at 14:15; Stop 08/27/20 at 15:14; Status DC Fentanyl Citrate (Fentanyl 2ml Vial) 25 mcg PRN Q5MIN PRN IVP MILD PAIN 1-3; Start 08/27/20 at 16:30; Stop 08/28/20 at 16:29; Status DC Fentanyl Citrate (Fentanyl 2ml Vial) 50 mcg PRN Q5MIN PRN IVP MODERATE PAIN 4-6 Last administered on 08/27/20at 21:50; Start 08/27/20 at 16:30; Stop 08/28/20 at 16:29; Status DC Morphine Sulfate (Morphine Sulfate) 1 mg PRN Q10MIN PRN IVP SEVERE PAIN 7-10 Last administered on 08/27/20at 22:13; Start 08/27/20 at 16:30; Stop 08/28/20 at 16:29; Status DC Ringer's Solution 1,000 ml @ 30 mls/hr Q24H IV ; Start 08/27/20 at 16:30; Stop 08/28/20 at 04:29; Status DC Hydromorphone HCl (Dilaudid) 0.5 mg PRN Q10MIN PRN IVP SEVERE PAIN 7-10, 2nd CHOICE Last administered on 08/27/20at 22:24; Start 08/27/20 at 16:30; Stop 08/28/20 at 16:29; Status DC Prochlorperazine Edisylate (Compazine) 5 mg PACU PRN PRN IVP NAUSEA, MRX1; Start 08/27/20 at 16:30; Stop 08/28/20 at 16:29; Status DC Propofol (Diprivan) 200 mg STK-MED ONCE IV ; Start 08/27/20 at 19:50; Stop 08/27/20 at 19:51; Status DC Lidocaine HCl (Lidocaine Pf 2% Vial) 5 ml STK-MED ONCE .ROUTE ; Start 08/27/20 at 19:50; Stop 08/27/20 at 19:51; Status DC Fentanyl Citrate (Fentanyl 2ml Vial) 100 mcg STK-MED ONCE .ROUTE ; Start 08/27/20 at 19:58; Stop 08/27/20 at 19:58; Status DC Ondansetron HCl (Zofran) 4 mg STK-MED ONCE .ROUTE ; Start 08/27/20 at 20:36; Stop 08/27/20 at 20:37; Status DC Dexamethasone Sodium Phosphate (Decadron) 4 mg STK-MED ONCE .ROUTE ; Start 08/27/20 at 20:36; Stop 08/27/20 at 20:37; Status DC Phenylephrine HCl (PHENYLEPHRINE in 0.9% NACL PF) 1 mg STK-MED ONCE IV ; Start 08/27/20 at 20:37; Stop 08/27/20 at 20:37; Status DC Sevoflurane (Ultane) 60 ml STK-MED ONCE IH ; Start 08/27/20 at 21:22; Stop 08/27/20 at 21:22; Status DC Fentanyl Citrate (Fentanyl 2ml Vial) 100 mcg STK-MED ONCE .ROUTE ; Start 08/27/20 at 21:45; Stop 08/27/20 at 21:45; Status DC Morphine Sulfate (Morphine Sulfate) 2 mg STK-MED ONCE .ROUTE ; Start 08/27/20 at 22:01; Stop 08/27/20 at 22:01; Status DC Hydromorphone HCl (Dilaudid) 2 mg STK-MED ONCE .ROUTE ; Start 08/27/20 at 22:21; Stop 08/27/20 at 22:21; Status DC Sodium Chloride 1,000 ml @ 75 mls/hr [id number] IV Last administered on 08/30/20at 02:38; Start 08/28/20 at 09:45; Stop 08/30/20 at 15:48; Status DC Daptomycin 410 mg/ Sodium Chloride 50 ml @ 100 mls/hr Q24H IV Last administered on 08/29/20at 13:15; Start 08/28/20 at 12:30; Stop 08/30/20 at 10:11; Status DC Piperacillin Sod/ Tazobactam Sod 3.375 gm/Sodium Chloride 50 ml @ 100 mls/hr Q6HRS IV Last administered on 08/30/20at 05:57; Start 08/28/20 at 12:00; Stop 08/30/20 at 10:11; Status DC Acetaminophen (Tylenol) 1,000 mg PRN BID PRN PO MILD PAIN / TEMP > 100.3'F Last administered on 09/05/20at 00:48; Start 08/28/20 at 14:45; Stop 09/05/20 at 13:21; Status DC Docusate Sodium (Colace) 100 mg BID PO Last administered on 09/10/20 08:56; Start 08/28/20 at 21:00 Levothyroxine Sodium (Synthroid) 88 mcg DAILY07 PO Last administered on 09/11/20 05:59; Start 08/29/20 at 07:00 Simvastatin (Zocor) 20 mg HS PO Last administered on 09/10/20at 20:07; Start 08/28/20 at 21:00 Tramadol HCl (Ultram) 50 mg PRN Q4HRS PRN PO MODERATE PAIN Last administered on 08/28/20 15:01; Start 08/28/20 at 14:45 Vitamin D (Vitamin D3) 2,000 unit DAILY PO Last administered on 09/11/20 08:25; Start 08/29/20 at 09:00 Non-Formulary Medication (Melatonin ) 1 tab QHS PO ; Start 08/28/20 at 21:00; Status UNV Multivitamins (Thera M Plus) 1 tab DAILY PO Last administered on 09/11/20at 08:25; Start 08/29/20 at 09:00 Pantoprazole Sodium (Protonix) 40 mg DAILYAC PO Last administered on 09/11/20 05:59; Start 08/29/20 at 07:30 Oxybutynin Chloride (Ditropan) 5 mg [id number] PO Last administered on 09/11/20at 1 3:45; Start 08/28/20 at 21:00 Lactobacillus Rhamnosus (Culturelle) 1 cap BID PO Last administered on 09/11/20at 08:25; Start 08/29/20 at 21:00 Rifampin (Rifadin) 300 mg BID PO Last administered on 09/11/20 08:25; Start 08/30/20 at 11:00 Daptomycin 550 mg/ Sodium Chloride 50 ml @ 100 mls/hr Q24H IV Last administered on 09/11/20at 12:37; Start 08/30/20 at 12:30 Vancomycin HCl (Vancomycin) 8 gm STK-MED ONCE CEMENT Last administered on 09/04/20at 15:13; Start 09/04/20 at 15:13; Stop 09/04/20 at 19:33; Status DC Tobramycin Sulfate (Tobramycin Powder) 9.6 gm STK-MED ONCE CEMENT Last administered on 09/04/20at 15:13; Start 09/04/20 at 15:13; Stop 09/04/20 at 19:33; Status DC Fentanyl Citrate (Fentanyl 2ml Vial) 25 mcg PRN Q5MIN PRN IV PAIN; Start 09/04/20 at 20:00; Stop 09/04/20 at 21:12; Status DC Fentanyl Citrate (Fentanyl 2ml Vial) 50 mcg PRN Q5MIN PRN IV PAIN; Start 09/04/20 at 20:00; Stop 09/04/20 at 21:12; Status DC Morphine Sulfate (Morphine Sulfate) 2 mg PRN Q10MIN PRN IV PAIN; Start 09/04/20 at 20:00; Stop 09/04/20 at 21:12; Status DC Atropine Sulfate (ATROPINE 0.5mg SYRINGE) 0.5 mg PRN 1X PRN IV SEE COMMENTS; Start 09/04/20 at 20:00; Stop 09/05/20 at 19:59; Status DC Naloxone HCl (Narcan) 0.04 mg PRN Q2MIN PRN IV SEE COMMENTS; Start 09/04/20 at 20:00; Stop 09/05/20 at 19:59; Status DC Hydromorphone HCl (Dilaudid) 0.5 mg PRN Q10MIN PRN IVP pain Last administered on 09/04/20at 19:45; Start 09/04/20 at 20:00; Stop 09/04/20 at 21:12; Status DC Ringer's Solution 1,000 ml @ 75 mls/hr [id number] IV Last administered on 09/05/20at 09:05; Start 09/04/20 at 17:00; Stop 09/05/20 at 16:59; Status DC Fentanyl Citrate (Fentanyl 2ml Vial) 25 mcg PRN Q3HRS PRN IVP SEVERE PAIN 7-10 Last administered on 09/06/20at 12:22; Start 09/04/20 at 21:15 Acetaminophen (Tylenol) 650 mg PRN Q4HRS PRN PO MILD PAIN / TEMP > 100.3'F Last administered on 09/11/20at 04:22; Start 09/05/20 at 05:45 Oxycodone/ Acetaminophen (Percocet 5/325) 1 tab PRN Q4HRS PRN PO SEVERE PAIN, 1ST CHOICE Last administered on 09/05/20at 10:24; Start 09/05/20 at 10:30 Oxycodone/ Acetaminophen (Percocet 7.5/ 325) 1 tab PRN Q4HRS PRN PO SEVERE PAIN, 2ND CHOICE Last administered on 09/08/20at 14:34; Start 09/05/20 at 11:15 Polyethylene Glycol (miraLAX PACKET) 17 gm DAILY PO Last administered on 09/10/20at 08:57; Start 09/07/20 at 10:00 Rocuronium [place] (Zemuron) 50 mg STK-MED ONCE .ROUTE ; Start 09/04/20 at 14:02; Stop 09/08/20 at 11:07; Status DC Tranexamic Acid 50 ml @ As Directed STK-MED ONCE .ROUTE ; Start 09/04/20 at 14:05; Stop 09/08/20 at 11:07; Status DC Propofol (Diprivan) 200 mg STK-MED ONCE IV ; Start 09/04/20 at 14:05; Stop 09/08/20 at 11:07; Status DC Dexamethasone Sodium Phosphate (Decadron) 4 mg STK-MED ONCE .ROUTE ; Start 09/04/20 at 14:05; Stop 09/08/20 at 11:07; Status DC Lidocaine HCl (Lidocaine Pf 2% Vial) 5 ml STK-MED ONCE .ROUTE ; Start 09/04/20 at 14:05; Stop 09/08/20 at 11:07; Status DC Ondansetron HCl (Zofran) 4 mg STK-MED ONCE .ROUTE ; Start 09/04/20 at 14:05; Stop 09/08/20 at 11:07; Status DC Sevoflurane (Ultane) 90 ml STK-MED ONCE IH ; Start 09/04/20 at 14:05; Stop 09/08/20 at 11:07; Status DC Vancomycin HCl (Vancomycin) 1 gm STK-MED ONCE .ROUTE ; Start 09/04/20 at 14:05; Stop 09/08/20 at 11:07; Status DC Tranexamic Acid 50 ml @ As Directed STK-MED ONCE .ROUTE ; Start 09/04/20 at 14:05; Stop 09/08/20 at 11:07; Status DC Fentanyl Citrate (Fentanyl 2ml Vial) 100 mcg STK-MED ONCE .ROUTE ; Start 09/04/20 at 14:41; Stop 09/08/20 at 11:08; Status DC Phenylephrine HCl (PHENYLEPHRINE in 0.9% NACL PF) 1 mg STK-MED ONCE IV ; Start 09/04/20 at 14:53; Stop 09/08/20 at 11:08; Status DC Vancomycin HCl (Vancomycin) 1 gm STK-MED ONCE .ROUTE ; Start 09/04/20 at 15:18; Stop 09/08/20 at 11:08; Status DC Tobramycin Sulfate (Tobramycin Powder) 1.2 gm STK-MED ONCE .ROUTE ; Start 09/04/20 at 15:18; Stop 09/08/20 at 11:08; Status DC Vancomycin HCl (Vancomycin) 1 gm STK-MED ONCE .ROUTE ; Start 09/04/20 at 15:20; Stop 09/08/20 at 11:08; Status DC Tobramycin Sulfate (Tobramycin Powder) 1.2 gm STK-MED ONCE .ROUTE ; Start 09/04/20 at 15:20; Stop 09/08/20 at 11:08; Status DC Glycopyrrolate (Robinul) 1 mg STK-MED ONCE .ROUTE ; Start 09/04/20 at 18:18; Stop 09/08/20 at 11:08; Status DC Neostigmine [place] (Neostigmine Methylsulfate) 5 mg STK-MED ONCE .ROUTE ; Start 09/04/20 at 18:18; Stop 09/08/20 at 11:08; Status DC Lidocaine HCl (Lidocaine Pf 2% Vial) 5 ml STK-MED ONCE .ROUTE ; Start 09/04/20 at 18:51; Stop 09/08/20 at 11:08; Status DC Hydromorphone HCl (Dilaudid) 2 mg STK-MED ONCE .ROUTE ; Start 09/04/20 at 19:26; Stop 09/08/20 at 11:08; Status DC Active Scripts Active Reported Acetaminophen 500 Mg Tablet 2 Tab PO PRN BID PRN 30 Days Tramadol Hcl 50 Mg Tablet 50 Mg PO Q4HRS PRN Melatonin 5 Mg Tab.rapdis 1 Tab PO QHS 30 Days Colace (Docusate Sodium) 100 Mg Capsule 1 Cap PO BID 30 Days Vesicare (Solifenacin Succinate) 10 Mg Tablet 1 Tab PO DAILY 30 Days Levothyroxine Sodium 88 Mcg Tablet 1 Tab PO DAILY Omeprazole 20 Mg Capsule.dr 1 Cap PO DAILY Vitamin D3 (Cholecalciferol (Vitamin D3)) 2,000 Unit Tablet 2,000 Unit PO DAILY Once Daily (Multivitamin) 1 Each Tablet 1 Each PO DAILY Simvastatin 20 Mg Tablet 20 Mg PO HS Vital Signs Vital Signs Date Time Temp Pulse Resp B/P (MAP) Pulse Ox O2 Delivery O2 Flow Rate FiO2 09/11/20 11:00 97.9 81 16 94/38 (56) 95 Room Air 97.9 09/11/20 07:40 2.0 Labs Laboratory Tests Test 09/10/20 03:35 09/10/20 18:15 White Blood Count 8.1 x10^3/uL (4.0-11.0) Red Blood Count 2.90 x10^6/uL (3.50-5.40) Hemoglobin 9.0 g/dL (12.0-15.5) Hematocrit 27.0 % (36.0-47.0) Mean Corpuscular Volume 93 fL (79-100) Mean Corpuscular Hemoglobin 31 pg (25-35) Mean Corpuscular Hemoglobin Concent 33 g/dL (31-37) Red Cell Distribution Width 15.6 % (11.5-14.5) Platelet Count 317 x10^3/uL (140-400) Neutrophils (%) (Auto) 46 % (31-73) Lymphocytes (%) (Auto) 29 % (24-48) Monocytes (%) (Auto) 22 % (0-9) Eosinophils (%) (Auto) 2 % (0-3) Basophils (%) (Auto) 1 % (0-3) Neutrophils # (Auto) 3.7 x10^3/uL (1.8-7.7) Lymphocytes # (Auto) 2.3 x10^3/uL (1.0-4.8) Monocytes # (Auto) 1.8 x10^3/uL (0.0-1.1) Eosinophils # (Auto) 0.2 x10^3/uL (0.0-0.7) Basophils # (Auto) 0.1 x10^3/uL (0.0-0.2) Sodium Level 136 mmol/L (136-145) Potassium Level 4.3 mmol/L (3.5-5.1) Chloride Level 103 mmol/L (98-107) Carbon Dioxide Level 29 mmol/L (21-32) Anion Gap 4 (6-14) Blood Urea Nitrogen 27 mg/dL (7-20) Creatinine 1.0 mg/dL (0.6-1.0) Estimated GFR (Cockcroft-Gault) 52.2 BUN/Creatinine Ratio 27 (6-20) Glucose Level 109 mg/dL (70-99) Calcium Level 8.1 mg/dL (8.5-10.1) Total Bilirubin 0.4 mg/dL (0.2-1.0) Aspartate Amino Transf (AST/SGOT) 12 U/L (15-37) Alanine Aminotransferase (ALT/SGPT) 15 U/L (14-59) Alkaline Phosphatase 109 U/L (46-116) Total Protein 5.1 g/dL (6.4-8.2) Albumin 1.6 g/dL (3.4-5.0) Albumin/Globulin Ratio 0.5 (1.0-1.7) SARS-CoV-2 RNA (PRISCILLA) Negative (Negative) SARS-CoV-2 Antigen (Rapid) Negative (NEGATIVE) Laboratory Tests Test 09/10/20 18:15 SARS-CoV-2 RNA (PRISCILLA) Negative (Negative) SARS-CoV-2 Antigen (Rapid) Negative (NEGATIVE) Allergies Allergies Coded Allergies Type Severity Reaction Last Updated Verified I S O L A T I O N *CONTACT* Allergy Unknown 08/31/20 Yes prednisone Adverse Reaction Intermediate "makes me crazy" 09/03/20 Yes sucralfate Adverse Reaction Intermediate loses voice 09/03/20 Yes Disposition/Orders: Other (D/ C TO SNF REHAB) Justicifation of Admission Dx: Justifications for Admission: Justification of Admission Dx: N/A SUNSHINE GALEAS MD Sep 11, 2020 13:56
[2020-09-11] MEDS ORDERED: DAPT350V IV (14:00)
[2020-09-11] MEDS ORDERED: POLY17PO52 PO (14:00)
[2020-09-11] MEDS ORDERED: OXYC1TAB15 PO (14:00)
[2020-09-11] MEDS ORDERED: RIFA300C3 PO (14:00)
[2020-09-11] MEDS ORDERED: LACT1CAP19 PO (14:00)
--- NOTE | 2020-09-11 14:02 | SNU/HH DC ---
DISCHARGE ORDERS DISCHARGE INFORMATION: DISCHARGE DATE: Sep 11, 2020 FINAL DIAGNOSIS Problems Medical Problems: (1) Cellulitis Status: Acute CONDITION ON DISCHARGE: Stable CODE STATUS: Code Status: Full LONG-TERM: SNF STAY <30 DAYS: No HOSPICE: HOSPICE: No HOSPICE EVAL & TREAT: No LTAC: ADMIT TO LTAC: No POST DISCHARGE ORDERS: ACTIVITY ORDERS: Activity as tolerated WEIGHT BEARING STATUS: No restrictions BATHING ORDERS: Shower-keep dressing dry, No Tub Bath until see DIET AFTER DISCHARGE: Cardiac WOUND/INCISION CARE: Change dressing CHECKS AFTER DISCHARGE: CHECKS AFTER DISCHARGE: Check blood press - daily FOLLOW-UP: PHYSICIAN FOLLOW-UP: ORTHO IN 1-2 WEEKS ADDITIONAL FOLLOW-UP: DR RIOS 2 WEEKS LAB ORDERS FOR FOLLOW-UP: Check INR within 3-5 days. TREATMENT/EQUIPMENT ORDERS: ADAPTIVE EQUIPMENT NEEDED: Front wheeled walker, Raised toilet seat w/arms INFUSION EQUIPMENT NEEDED: IV Line Physical Therapy For: Evalulation/Treatment Occupational Therapy For: Evaluation/Treatment DISCHARGE MEDICATIONS: Home Meds Active Scripts Lactobacillus Rhamnosus Gg (CULTURELLE) 1 Each Cap.sprink, 1 CAP PO BID for SUPPLEMENT for 60 Days, #120 CAP Prov:SUNSHINE GALEAS MD 09/11/20 Polyethylene Glycol 3350 (POLYETHYLENE GLYCOL 3350) 17 Gm Powd.pack, 17 GM PO DAILY for PREVENT CONSTIPATION for 60 Days, #60 PKT Prov:SUNSHINE GALEAS MD 09/11/20 Oxycodone/Apap 5-325 (PERCOCET 5-325 MG TABLET ) 1 Each Tablet, 1 TAB PO PRN Q4HRS PRN for SEVERE PAIN, 1ST CHOICE for 10 Days, #60 TAB Prov:SUNSHINE GALEAS MD 09/11/20 Rifampin (RIFAMPIN) 300 Mg Capsule, 300 MG PO BID for INFECTION for 60 Days, #120 CAP Prov:SUNSHINE GALEAS MD 09/11/20 Daptomycin (Daptomycin) 350 Mg Vial, 550 MG IV Q 24 HRS for KNEE INFECTION for 60 Days, #60 EACH Prov:SUNSHINE GALEAS MD 09/11/20 Reported Medications Acetaminophen (ACETAMINOPHEN) 500 Mg Tablet, 2 TAB PO PRN BID PRN for pain or fever for 30 Days, #60 TAB 0 Refills 08/27/20 Tramadol Hcl (TRAMADOL HCL) 50 Mg Tablet, 50 MG PO Q4HRS PRN for PAIN, TAB 08/27/20 Melatonin (MELATONIN) 5 Mg Tab.rapdis, 1 TAB PO QHS for sleep for 30 Days, #30 TAB 0 Refills 08/27/20 Docusate Sodium (COLACE) 100 Mg Capsule, 1 CAP PO BID for constipation for 30 Days, #60 CAP 0 Refills 08/27/20 Solifenacin Succinate (VESICARE) 10 Mg Tablet, 1 TAB PO DAILY for BLADDER SPASMS for 30 Days, #30 TAB 0 Refills 07/07/20 Levothyroxine Sodium (LEVOTHYROXINE SODIUM) 88 Mcg Tablet, 1 TAB PO DAILY for thyroid, #30 TAB 5 Refills 12/20/17 Omeprazole (OMEPRAZOLE) 20 Mg Capsule.dr, 1 CAP PO DAILY for gerd, #30 CAP 5 Re fills 06/29/17 Cholecalciferol (Vitamin D3) (VITAMIN D3) 2,000 Unit Tablet, 2000 UNIT PO DAILY for supplement 01/12/16 Multivitamin (ONCE DAILY) 1 Each Tablet, 1 EACH PO DAILY for supplement 01/12/16 Simvastatin (SIMVASTATIN) 20 Mg Tablet, 20 MG PO HS for cholesterol 04/02/13 SUNSHINE GALEAS MD Sep 11, 2020 14:02
--- NOTE | 2020-09-11 14:52 | PDOC ---
PROGRESS NOTES Date of Service DATE: 09/11/20 TIME: 14:48 Subjective Subjective Problems overnight: Wound care is in this morning to change her wound VAC Objective Vital Signs Vital Signs Date Time Temp Pulse Resp B/P (MAP) Pulse Ox O2 Delivery O2 Flow Rate FiO2 09/11/20 11:00 97.9 81 16 94/38 (56) 95 Room Air 97.9 09/11/20 07:40 2.0 Physical Exam Proximal wound shows some continued largely serous drainage slightly serosanguineous no surrounding redness. The distal wound is overall intact and shows some slight duskiness at the staple line but no evidence of any drainage antibiotic spacer remained stable distal neurovascular status intact Labs Laboratory Tests Test 09/10/20 03:35 09/10/20 18:15 White Blood Count 8.1 x10^3/uL (4.0-11.0) Red Blood Count 2.90 x10^6/uL (3.50-5.40) Hemoglobin 9.0 g/dL (12.0-15.5) Hematocrit 27.0 % (36.0-47.0) Mean Corpuscular Volume 93 fL (79-100) Mean Corpuscular Hemoglobin 31 pg (25-35) Mean Corpuscular Hemoglobin Concent 33 g/dL (31-37) Red Cell Distribution Width 15.6 % (11.5-14.5) Platelet Count 317 x10^3/uL (140-400) Neutrophils (%) (Auto) 46 % (31-73) Lymphocytes (%) (Auto) 29 % (24-48) Monocytes (%) (Auto) 22 % (0-9) Eosinophils (%) (Auto) 2 % (0-3) Basophils (%) (Auto) 1 % (0-3) Neutrophils # (Auto) 3.7 x10^3/uL (1.8-7.7) Lymphocytes # (Auto) 2.3 x10^3/uL (1.0-4.8) Monocytes # (Auto) 1.8 x10^3/uL (0.0-1.1) Eosinophils # (Auto) 0.2 x10^3/uL (0.0-0.7) Basophils # (Auto) 0.1 x10^3/uL (0.0-0.2) Sodium Level 136 mmol/L (136-145) Potassium Level 4.3 mmol/L (3.5-5.1) Chloride Level 103 mmol/L (98-107) Carbon Dioxide Level 29 mmol/L (21-32) Anion Gap 4 (6-14) Blood Urea Nitrogen 27 mg/dL (7-20) Creatinine 1.0 mg/dL (0.6-1.0) Estimated GFR (Cockcroft-Gault) 52.2 BUN/Creatinine Ratio 27 (6-20) Glucose Level 109 mg/dL (70-99) Calcium Level 8.1 mg/dL (8.5-10.1) Total Bilirubin 0.4 mg/dL (0.2-1.0) Aspartate Amino Transf (AST/SGOT) 12 U/L (15-37) Alanine Aminotransferase (ALT/SGPT) 15 U/L (14-59) Alkaline Phosphatase 109 U/L (46-116) Total Protein 5.1 g/dL (6.4-8.2) Albumin 1.6 g/dL (3.4-5.0) Albumin/Globulin Ratio 0.5 (1.0-1.7) SARS-CoV-2 RNA (PRISCILLA) Negative (Negative) SARS-CoV-2 Antigen (Rapid) Negative (NEGATIVE) Laboratory Tests Test 09/10/20 18:15 SARS-CoV-2 RNA (PRISCILLA) Negative (Negative) SARS-CoV-2 Antigen (Rapid) Negative (NEGATIVE) Assessment Assessment POD# Plan Plan of Care Prevena wound VAC applied. Plan is to continue that for 1 week until the unit stops. Generally it could then be removed or reapplied if she continues to have any drainage. Continue 25% weightbearing to the right lower extremity with assistance and she can continue to do leg lifts to stimulate the quadriceps muscle ankle pumps as tolerated Ongoing antibiotics per infectious disease Plan follow-up with orthopedics Dr. Rossi in 4 weeks for repeat x-rays. Sooner if any wound concerns arise and I would be slow to remove sutures or gautam as well although I would generally consider that perhaps at about 2 weeks from the present time Justicifation of Admission Dx: Justifications for Admission: Justification of Admission Dx: N/A GURU ROSSI MD Sep 11, 2020 14:52
[2020-09-11 15:00] VITALS: BP 98/46
[2020-09-11] MEDS: traMADol 50 MG TABLET PO PRN (16:15)
--- NOTE | 2020-09-11 17:21 | NUR ---
Pt. discharged to [facility] via per transportation service. R knee Provena [place] CDI, RUE picc line CDI.
== END 2020-09-11 17:22 | DRG 466 ==
LOC: SURG 12:38 → 4 NORTH 13:38
PROVIDERS: ADMIT Internal Medicine; ATTEND Internal Medicine
PROC: 0KDS0ZZ Extraction of Right Lower Leg Muscle, Open Approach (ICD-10-PCS; 2020-08-27)
PROC: 3E1U38X Irrigation of Joints using Irrigating Substance, Percutaneous Approach, Diagnostic (ICD-10-PCS; 2020-08-27)
PROC: 0S9C3ZX Drainage of Right Knee Joint, Percutaneous Approach, Diagnostic (ICD-10-PCS; principal; 2020-08-27 17:30)
PROC: 30233N1 Transfusion of Nonautologous Red Blood Cells into Peripheral Vein, Percutaneous Approach (ICD-10-PCS; 2020-09-04)
PROC: 0SPC0JZ Removal of Synthetic Substitute from Right Knee Joint, Open Approach (ICD-10-PCS; 2020-09-04)
PROC: 0SRC0EZ Replacement of Right Knee Joint with Articulating Spacer, Open Approach (ICD-10-PCS; 2020-09-04)
PROC: 02HV33Z Insertion of Infusion Device into Superior Vena Cava, Percutaneous Approach (ICD-10-PCS; 2020-09-07)
PROC: B5181ZA Fluoroscopy of Superior Vena Cava using Low Osmolar Contrast, Guidance (ICD-10-PCS; 2020-09-07)
PROC: B548ZZA Ultrasonography of Superior Vena Cava, Guidance (ICD-10-PCS; 2020-09-07)
DX: T84.53XA Infection and inflammatory reaction due to internal right knee prosthesis, initial encounter (principal); A41.9 Sepsis, unspecified organism; E43 Unspecified severe protein-calorie malnutrition; S82.209A Unspecified fracture of shaft of unspecified tibia, initial encounter for closed fracture; L03.90 Cellulitis, unspecified; M00.061 Staphylococcal arthritis, right knee; N17.9 Acute kidney failure, unspecified; M97.9XXA Periprosthetic fracture around unspecified internal prosthetic joint, initial encounter; M25.461 Effusion, right knee; Z68.29 Body mass index [BMI] 29.0-29.9, adult; B95.62 Methicillin resistant Staphylococcus aureus infection as the cause of diseases classified elsewhere; E11.22 Type 2 diabetes mellitus with diabetic chronic kidney disease; E66.9 Obesity, unspecified; E78.00 Pure hypercholesterolemia, unspecified; E78.5 Hyperlipidemia, unspecified; I12.9 Hypertensive chronic kidney disease with stage 1 through stage 4 chronic kidney disease, or unspecified chronic kidney disease; M19.90 Unspecified osteoarthritis, unspecified site; N18.9 Chronic kidney disease, unspecified; N32.81 Overactive bladder; X50.1XXA Overexertion from prolonged static or awkward postures, initial encounter; Y83.1 Surgical operation with implant of artificial internal device as the cause of abnormal reaction of the patient, or of later complication, without mention of misadventure at the time of the procedure; Z82.49 Family history of ischemic heart disease and other diseases of the circulatory system; Z51.5 Encounter for palliative care; Z83.3 Family history of diabetes mellitus; Z85.048 Personal history of other malignant neoplasm of rectum, rectosigmoid junction, and anus; Z87.891 Personal history of nicotine dependence; Z89.511 Acquired absence of right leg below knee; Z90.711 Acquired absence of uterus with remaining cervical stump; Z93.2 Ileostomy status; Z96.611 Presence of right artificial shoulder joint; Z96.652 Presence of left artificial knee joint; K21.9 Gastro-esophageal reflux disease without esophagitis; Z88.8 Allergy status to other drugs, medicaments and biological substances
CPT/HCPCS: 36415; 36430; 36573; 73562; 77001; 80048; 80053; 82550; 83605; 85007; 85025; 85651; 86140; 86850; 86900; 86901; 86920; 87040; 87071; 87075; 87077; 87102; 87116; 87426; 89050; 96365; A4213; A4222; A4364; A4930; A6211; A6213; A6223; A6253; A6402; A6450; C1713; C1751; C1755; C1892; J0878; J1100; J1170; J2270; J2370; J2405; J2543; J2704; J2710; J3010; J3260; J3370; J3490; J7030; J7040; J7120; P9016; U0003; U0005; 97110-GP; 97116-GP; 97530-GO; 97530-GP; 97535-GO; 99285-25; G0378

== ENCOUNTER 2020-10-23 09:42 | Day surgery (SDC) | payer MEDICARE ==
[~2020-10-23] VITALS: Ht 157.5 cm; Wt 68.0 kg
[~2020-10-23 09:42] MED LIST changes: +ATOR10TA60 PO; +DAPT350V IV; +DOCU-109 PO; +HYDROmorphone 2 MG/ML VIAL IVP PRN; +IV RINGERS,LACTATED 1000ML 1,000 ML IV SCH; +LACT1CAP19 PO; -LISI2.5T PO; +LISI2.5T12 PO; +MELA5TAB20 PO; +MORPHINE SULFATE 2 MG/ML INJ. IVP PRN; +OXYC1TAB15 PO; +POLY17PO52 PO; +PROCHLORPERAZINE 10 MG/2 ML VIAL. IVP PRN; +RIFA300C3 PO; +ceFAZolin SODIUM IV Push 1 GM VIAL. IVP PRN; +fentaNYL PF VIAL 100 MCG/2 ML VIAL IVP PRN
[2020-10-23 10:00] VITALS: BP 138/70
--- NOTE | 2020-10-23 13:23 | SNU/HH DC ---
DISCHARGE ORDERS DISCHARGE INFORMATION: DISCHARGE DATE: Oct 23, 2020 FINAL DIAGNOSIS Right thigh wound CONDITION ON DISCHARGE: Stable CODE STATUS: Code Status: Full CUSTODIAL: SNF STAY <30 DAYS: Yes POST DISCHARGE ORDERS: ACTIVITY ORDERS: Activity as tolerated WEIGHT BEARING STATUS: No restrictions, As tolerated BATHING ORDERS: Shower-keep dressing dry, No Tub Bath until see DIET AFTER DISCHARGE: Avoid foods rich in vitamin K due to warfarin use WOUND/INCISION CARE: Change dressing OTHER WOUND INSTRUCTIONS: Wound VAC set at 125 mm continuous suction, changes 3 times a week or as ne FOLLOW-UP: PHYSICIAN FOLLOW-UP: Dr. Rossi or Pat 2 weeks or as necessary TREATMENT/EQUIPMENT ORDERS: ADAPTIVE EQUIPMENT NEEDED: Front wheeled walker Physical Therapy For: Evalulation/Treatment Occupational Therapy For: Evaluation/Treatment DISCHARGE MEDICATIONS: Home Meds Active Scripts Lactobacillus Rhamnosus Gg (CULTURELLE) 1 Each Cap.sprink, 1 CAP PO BID for SUPPLEMENT for 60 Days, #120 CAP Prov:SUNSHINE GALEAS MD 09/11/20 Polyethylene Glycol 3350 (POLYETHYLENE GLYCOL 3350) 17 Gm Powd.pack, 17 GM PO DAILY for PREVENT CONSTIPATION for 60 Days, #60 PKT Prov:SUNSHINE GALEAS MD 09/11/20 Rifampin (RIFAMPIN) 300 Mg Capsule, 300 MG PO BID for INFECTION for 60 Days, #120 CAP Prov:SUNSHINE GALEAS MD 09/11/20 Daptomycin (Daptomycin) 350 Mg Vial, 550 MG IV Q 24 HRS for KNEE INFECTION for 60 Days, #60 EACH Prov:SUNSHINE GALEAS MD 09/11/20 Reported Medications Atorvastatin Calcium (ATORVASTATIN CALCIUM) 10 Mg Tablet, 10 MG PO HS for FOR CHOLESTEROL, #30 TAB 0 Refills 10/22/20 Acetaminophen (ACETAMINOPHEN) 500 Mg Tablet, 2 TAB PO PRN BID PRN for pain or fever for 30 Days, #60 TAB 0 Refills 08/27/20 Tramadol Hcl (TRAMADOL HCL) 50 Mg Tablet, 50 MG PO Q4HRS PRN for PAIN, TAB 08/27/20 Melatonin (MELATONIN) 5 Mg Tab.rapdis, 1 TAB PO QHS for sleep for 30 Days, #30 TAB 0 Refills 08/27/20 Docusate Sodium (COLACE) 100 Mg Capsule, 1 CAP PO BID for constipation for 30 Days, #60 CAP 0 Refills 08/27/20 Solifenacin Succinate (VESICARE) 10 Mg Tablet, 1 TAB PO DAILY for BLADDER SPASMS for 30 Days, #30 TAB 0 Refills 07/07/20 Levothyroxine Sodium (LEVOTHYROXINE SODIUM) 88 Mcg Tablet, 1 TAB PO DAILY for thyroid, #30 TAB 5 Refills 12/20/17 Omeprazole (OMEPRAZOLE) 20 Mg Capsule.dr, 1 CAP PO DAILY for gerd, #30 CAP 5 Refills 06/29/17 Cholecalciferol (Vitamin D3) (VITAMIN D3) 2,000 Unit Tablet, 2000 UNIT PO DAILY for supplement 01/12/16 Multivitamin (ONCE DAILY) 1 Each Tablet, 1 EACH PO DAILY for supplement 01/12/16 GURU ROSSI MD Oct 23, 2020 13:23
[2020-10-23] MEDS ORDERED: PROPOFOL 10 MG/ML (20ML) VIAL. IV ONE (13:43)
[2020-10-23] MEDS ORDERED: LIDOCAINE 2% PF 5 ML VIAL. ONE (13:43)
[2020-10-23] MEDS ORDERED: SEVOFLURANE 31 TO 60 MINUTES. IH ONE (14:35)
[2020-10-23] MEDS ORDERED: DEXAMETHASONE SOD PHOS 4 MG/ML VIAL ONE (14:35)
[2020-10-23] MEDS ORDERED: ONDANSETRON PF 4 MG/2 ML VIAL. ONE (14:35)
[2020-10-23 14:59] VITALS: BP 164/58
[2020-10-23] MEDS ORDERED: ACETAMINOPHEN 325 MG TABLET. PO ONE (15:13)
[2020-10-23] MEDS ORDERED: ACETAMINOPHEN 325 MG TABLET. PO PRN ×2 (15:45→15:54)
--- NOTE | 2020-10-25 18:57 | PDOC4 ---
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 She adamantly refuses any thought of amputation and wants to continue to preserve her lower extremity and therefore we talked about the possibility of opening the area debriding and using a wound VAC to allow this area to hopefully closed from the inside out with ongoing wound care. All her questions were answered she wishes to proceed with surgical evaluation and treatment Operative text: Patient was identified procedure verified patient placed in the supine position on the operating table. After adequate amounts of general anesthesia were administered the right lower extremity was prepped and draped in standard sterile fashion and after timeout was performed patient procedure identified and verified an incision was made connecting the draining areas and enlarged to encompass any tunneling in the subcutaneous area. Sharp debridement was carried out with curette rongeurs and scalpel of skin subcutaneous tissue fascia and muscle. No communication was noted to the knee joint area and after tissue was debrided back to healthy perfused tissue thorough irrigation carried out with normal saline solution and a wound VAC was placed. Patient was returned to recovery room in stable condition having tolerated procedure well GURU TORRES MD Oct 25, 2020 18:57
== END 2020-10-23 16:12 | disposition home or self-care (01) ==
LOC: SURG 09:42
PROVIDERS: ATTEND Orthopaedic Surgery
DX: S71.101A Unspecified open wound, right thigh, initial encounter (principal); L98.8 Other specified disorders of the skin and subcutaneous tissue; I10 Essential (primary) hypertension; E78.5 Hyperlipidemia, unspecified; M19.90 Unspecified osteoarthritis, unspecified site; K21.9 Gastro-esophageal reflux disease without esophagitis; E03.9 Hypothyroidism, unspecified; Z79.899 Other long term (current) drug therapy; Z88.8 Allergy status to other drugs, medicaments and biological substances; Z90.710 Acquired absence of both cervix and uterus; Z93.2 Ileostomy status; Z98.890 Other specified postprocedural states; X58.XXXA Exposure to other specified factors, initial encounter; Y93.89 Activity, other specified; Y92.89 Other specified places as the place of occurrence of the external cause
CPT/HCPCS: 11043; A4930; A6211; J0690; J1100; J2405; J2704